=== PATIENT | female | born 1935 | race Caucasian/White ===

== ENCOUNTER 2016-10-04 15:36 | Emergency (ER) | payer OTHER ==
[~2016-10-04 15:36] MED LIST: ALLO300T2 PO; ASPI-435 PO; ATEN50TA8 PO; DIGO0.122 PO; DILT120C50 PO; GLC850 PO; LPD600 PO; LSN20 PO; LSX20 PO; PRAV20TA PO; WARF5TAB7 PO
[2016-10-04 15:39] VITALS: TEMP 36.4; Ht 160 cm
[2016-10-04] MEDS ORDERED: DIGO0.2519 PO (16:16)
[2016-10-04] MEDS ORDERED: CMD5 PO (16:16)
[2016-10-04] MEDS ORDERED: DILT120C PO (16:18)
--- NOTE | 2016-10-04 16:29 | EMERGENCY ROOM VISIT NOTE ---
History Report prepared by Vasu: Misha Jay Under the Supervision of: Dr. Coleman Fan M.D. First contact with patient: 16:18 Chief Complaint: FALL Stated Complaint: LEFT KNEE GAVE OUT History of Present Illness The patient is an 81 year old female with a history of atrial fibrillation on Coumadin who presents to the Emergency Room with complaints of a mechanical fall that occurred less than 2 hours ago. The patient says that she was walking in her house, when her left knee gave out and she fell. The patient hit the back of her head with the fall and has a resulting bump on her head. She was helped up by family members. Per the patient's daughter, the patient complained of a bit of a headache after the fall, but the headache has faded over time. The patient says she has no headache currently. The patient denies any loss of consciousness on the fall. She also denies any other pain, including neck pain. The patient did not cut her head open on the fall. She has chronic leg swelling. The patient notes that her left knee has been operated on before, and has given out on her in the past, causing falls. Source of History: patient, family Onset: Less than 2 hours ago Position: other (global - fall) Quality: other (mechanical) Associated Symptoms: + headache (initially, denies currently), No LOC, No neck pain Note: Associated symptoms: Bump on back of head. Denies any pain currently. Review of Systems See HPI for pertinent positives & negatives. A total of 10 systems reviewed and were otherwise negative. Past Medical & Surgical Medical Problems: (1) A-fib Family History Family history omitted secondary to advanced age. Social History Smoking Status: Never Smoker Marital Status: Housing Status: lives with family Occupation Status: retired Current/Historical Medications Scheduled Allopurinol (Zyloprim), 300 MG PO QAM Aspirin (Aspirin 81), 81 MG PO HS Atenolol (Tenormin), 50 MG PO QAM Digoxin (Digox), 250 MCG PO QAM Diltiazem Hcl Coated Beads (Diltiazem Hcl Er), 120 MG PO QAM Furosemide (Furosemide), 40 MG PO QAM Gemfibrozil (Gemfibrozil), 600 MG PO BID Lisinopril (Lisinopril), 20 MG PO BID Metformin HCl (Metformin HCl), 850 MG PO BID Pravastatin (Pravachol ), 40 MG PO HS Warfarin Sod (Jantoven), 1 TAB PO 4XWK Warfarin Sod (Coumadin), 1.5 TAB PO 3XWK Allergies Coded Allergies: No Known Allergies (Unverified , 12/22/14) Physical Exam Vital Signs Date Time Temp Pulse Resp B/P Pulse Ox O2 Delivery O2 Flow Rate FiO2 10/04/16 18:00 83 18 162/72 97 10/04/16 17:31 76 18 178/111 97 Room Air 10/04/16 15:39 36.4 74 18 123/88 97 Room Air Physical Exam GENERAL: Patient is in no acute distress. HEENT: No acute trauma, normocephalic atraumatic, mucous membranes moist, no nasal congestion, no scleral icterus. No laceration to scalp or hematoma noted. NECK: No stridor, no adenopathy, no meningismus, trachea is midline. Nontender c -spine. LUNGS: Clear to auscultation bilaterally, no wheeze, no rhonchi, breath sounds equal. HEART: Irregular with a normal rate. No murmurs. ABDOMEN: Soft, nontender, bowel sounds positive, no hernias, no peritonitis. EXTREMITIES: Moderate bilateral pedal edema. No cellulitis. No pain to move the joints. NEUROLOGIC: Oriented x 3, no acute motor or sensory deficits, no focal weakness. SKIN: No rash, no jaundice, no diaphoresis. Medical Decision & Procedures ER Provider Diagnostic Interpretation: CT results as stated below per my review and radiologist interpretation: HEAD CT NONCONTRAST CT DOSE: 537.48 mGy.cm HISTORY: Trauma fall, coumadin, hit head TECHNIQUE: Multiaxial CT images of the head were performed without the use of intravenous contrast. Comparison: None. Findings: The paranasal sinuses and mastoid air cells are clear. The calvarium and skull base are intact. The ventricles and sulci are within normal limits. There is no mass, hematoma, midline shift, or acute infarct. Impression: No acute intracranial abnormality. Electronically signed by: Pedro Ball M.D. 10/04/2016 5:30 PM Dictated Date/Time: 10/04/2016 5:29 PM ED Course 1620: The patient was evaluated in room C7. A complete history and physical exam was performed. 1736: I reevaluated the patient and she is resting comfortably. The patient verbally expressed understanding and agreement of the treatment plan. The patient will be discharged. Medical Decision Differential diagnosis includes but is not limited to intracranial bleeding, skull fracture, closed head trauma, cervical spine injury; back, chest, abdominal, or extremity trauma. The patient presents with an injury to her head. She is on Coumadin. On exam, there was no evidence for injury to the neck, extremities, back, chest or abdomen. A brain CT was done, there was no skull fracture, no acute bleed or mass effect. The patient was reassured. She was discharged home. If worsening, she can return for reassessment. Impression Primary Impression: Head trauma Additional Impression: History of Coumadin therapy Scribe Attestation The scribe's documentation has been prepared under my direction and personally reviewed by me in its entirety. I confirm that the note above accurately reflects all work, treatment, procedures, and medical decision making performed by me. Departure Information Dispostion Home / Self-Care Referrals Angeli Lee M.D. (PCP) Forms HOME CARE DOCUMENTATION FORM, IMPORTANT VISIT INFORMATION Patient Instructions My [facility] Additional Instructions tylenol for pain return for vomiting, worsening headache or symptoms brain CT scan was ok today Problem Qualifiers
--- NOTE | 2016-10-04 17:31 | DIAGNOSTIC IMAGING REPORT ---
HEAD CT NONCONTRAST CT DOSE: 537.48 mGy.cm HISTORY: Trauma fall, coumadin, hit head TECHNIQUE: Multiaxial CT images of the head were performed without the use of intravenous contrast. Comparison: None. Findings: The paranasal sinuses and mastoid air cells are clear. The calvarium and skull base are intact. The ventricles and sulci are within normal limits. There is no mass, hematoma, midline shift, or acute infarct. Impression: No acute intracranial abnormality. Electronically signed by: Pedro Ball M.D. 10/04/2016 5:30 PM Dictated Date/Time: 10/04/2016 5:29 PM
[2016-10-04 18:00] VITALS: BP 162/72; PULSE 83; O2SAT 97
== END 2016-10-04 18:00 | disposition home or self-care (01) ==
LOC: C.EDB 15:37 → C.EDC 18:00
DX: S09.90XA Unspecified injury of head, initial encounter (principal); Z79.01 Long term (current) use of anticoagulants; Z79.82 Long term (current) use of aspirin; Z79.899 Other long term (current) drug therapy; W19.XXXA Unspecified fall, initial encounter; W22.09XA Striking against other stationary object, initial encounter; I48.91 Unspecified atrial fibrillation; Y92.009 Unspecified place in unspecified non-institutional (private) residence as the place of occurrence of the external cause

== ENCOUNTER 2022-11-16 11:10 | Inpatient (IN) ==
--- NOTE | 2022-11-16 11:42 | Emergency Department Note ---
Impression & Plan Ambulatory dysfunction, Persistent atrial fibrillation, Hypertension, Type 2 diabetes mellitus, Hypomagnesemia ED Provider Note Provider: Theodore Noland MD DATE OF SERVICE: 11/16/2022 CHIEF COMPLAINT: And mobility, knee issues HISTORY OF PRESENT ILLNESS: Patient is a 87-year-old female past medical history including atrial fibrillation on warfarin, hypertension, diabetes, and multiple knee surgeries in the past presenting here today via ambulance from her home. Evidently over the past week or 2 has had multiple episodes where she has been unable to get up and has required lift assist for EMS due to issues with her knees. States that yesterday she got stuck in the car and they had to be called as well as today she got stuck in a lift chair. Was able to get out even with lift assistance from the chair and EMS was summoned. States that her left knee just gives out on her and she is unable to get up. Denies pain here. Some chronic swelling of the lower extremities reported. Denies any fever cough or cold symptoms. Denies chest pain or shortness of breath. Denies abdominal pain. Denies hip issues. Patient states she had multiple surgeries on her knees in the past and that for some time its been giving out but a bit more recently. Patient states that she feels that she may benefit from some physical therapy at her home. Lives at home with her but he is 90 with some early memory issues she reports and cannot help much. Daughter visits daily and helps some. No falls likely reported. Does relate she has had some INR issues the last several weeks. Does use a walker at home as well as wheelchair. Lives on 1 level at home. PAST MEDICAL HISTORY: As noted above MEDICATIONS: Reviewed home medications SOCIAL HISTORY: Lives at home with PHYSICAL EXAM: GENERAL: alert and oriented in no acute distress on stretcher Head: normocephalic and atraumatic EYES: No injection, discharge or icterus. NECK: Trachea midline. ENT: Mucous membranes pink and moist. LUNGS: Airway patent. No retractions. Breath sounds clear anteriorly HEART: Regular rate and rhythm. No chest wall tenderness ABDOMEN: Soft and non-tender, without guarding or rebound. SKIN: Acyanotic, warm, dry, EXTREMITIES: Without tenderness with 1-2+ edema of the lower extremities and compression stockings bilaterally and fairly symmetric. No significant erythema or weeping noted. Patient with healed surgical scars in the bilateral knees. No significant tenderness in particular the left knee appreciated. Velcro knee brace in place in the left knee. NEUROLOGICAL: No focal deficits. No aphasia. No facial droop or slurred speech. Normal strength and tone in the extremities. Sensation to gross touch normal. Ambulatory. EK bpm atrial fibrillation with PVCs noted. No acute ST segment elevation noted with some nonspecific lateral T wave/ST changes. QTc 405. CONTINUOUS CARDIAC MONITORING: was ordered and showed a heart rate of 50s-60s bpm in atrial fibrillation Patient's laboratory studies and imaging reviewed. Differential includes Infection, dehydration, metabolic abnormality, hypo/hyperglycemia, electrolyte disturbance, anemia, hypoxia, cardiac sources, neurologic, as well as other pathologies. IMPRESSION/MEDICAL DECISION MAKING: No pain complaint. No trauma history newly. No fever complaint. Doubt acute infection to the knee. Does not appear significantly erythematous or swollen or tender. Doubt crystalline disease or septic joint here. Multiple surgeries in the past and states it is weak and gives out on her frequently. No trauma again likely reported. Uses walker and wheelchair at home but still having ambulatory issues and lives at home with her 90-year-old . Basic labs checked including digoxin and INR level given her cardiac history. No other significant pain complaints or abdominal or thoracic complaints reported by the patient. Basic labs obtaine with a COVID test and x-ray of the left knee. Did discuss with case management options for therapy and would require admission here for this. Patient's daughter later arrived. Had some difficulty straightening her right leg as well and they requested an x-ray of the right knee and this was obtained. Basic blood work here without significant leukocytosis and slightly improved mild anemia. No significant electrolyte abnormality beyond some slight hyp omagnesemia of 1.6 and no signs of acute kidney injury. Troponin 16 and I doubt any significant cardiac injury or ACS. Digoxin therapeutic at 1.7 likely explains some slight EKG findings. Negative COVID. Bilateral x-rays per radiology without acute bony abnormality with bilateral knee arthroplasties and some soft tissue edema appreciated. INR 1.9. Discussed with patient and daughters at bedside findings and options at this time. Case management states she would require again stay to determine possible rehab options. Patient and family are agreeable to this as she is not able to really stand or ambulate and will likely need rehab. She was agreeable with this plan. DIAGNOSIS: Ambulatory dysfunction, hypomagnesemia DISPOSITION: Hospitalist will evaluate Patient was agreeable with this plan. Past Med/Surg History Medical History CKD (chronic kidney disease), stage III Diastolic dysfunction History of breast cancer Hypertension On warfarin therapy Persistent atrial fibrillation Type 2 diabetes mellitus Surgical History History of cholecystectomy History of total abdominal hysterectomy History of total left knee replacement History of total right knee replacement S/P mastectomy, bilateral Family History Other Family history non-contributory Social History Smoking Status: Never smoker Do You Dip or Chew Tobacco: No; Hx Alcohol Use: Yes Alcohol type: wine Hx Substance Use: No Preferred Language: Taiwanese Communication Ability: Effective Highway Engineer Required: No Beliefs That Will Affect Care: None marital status: Current Living Situation: Spouse current occupational status: retired Other Information That Helps Us Care for You: No Feels Safe at Home: Yes Safety Concerns: Feels Safe At This Time Assistive Devices: Denture - Upper, Glasses, Walker and Wheelchair Allergies Allergies Allergy/AdvReac Type Severity Reaction Status Date / Time No Known Allergies Allergy Verified 11/16/22 14:00 Home Meds Home Medications Medication Instructions Recorded Confirmed allopurinol 300 mg tablet 300 mg PO QAM 08/15/22 11/16/22 apple cider vinegar 500 mg tablet 500 mg PO QDD 08/15/22 11/16/22 aspirin 81 mg tablet,delayed 81 mg PO HS 08/15/22 11/16/22 release atenolol 50 mg tablet 75 mg PO QAM 08/15/22 11/16/22 cholecalciferol (vitamin D3) 125 250 mcg PO QPM 08/15/22 11/16/22 mcg (5,000 unit) tablet (Vitamin D3) cyanocobalamin (vitamin B-12) 1,000 mcg PO HS 08/15/22 11/16/22 1,000 mcg tablet (Vitamin B-12) digoxin 250 mcg (0.25 mg) tablet 250 mcg PO QPM 08/15/22 11/16/22 diltiazem HCl 120 mg 120 mg PO QAM 08/15/22 11/16/22 capsule,extended release 24 hr furosemide 40 mg tablet 40 mg PO QAM 08/15/22 11/16/22 lisinopril 20 mg tablet 20 mg PO BID 08/15/22 11/16/22 pravastatin 40 mg tablet 40 mg PO HS 08/15/22 11/16/22 warfarin 5 mg tablet 5 mg PO 2XWK 08/15/22 11/16/22 acetaminophen 500 mg tablet 1,000 mg PO QAM 11/16/22 11/16/22 diphenhydramine 25 2 tab PO HS 11/16/22 11/16/22 mg-acetaminophen 500 mg tablet (Tylenol PM Extra Strength) glipizide 5 mg tablet 5 mg PO BID 11/16/22 11/16/22 vit C 250 mg-vit E 90 mg-zinc 40 1 tab PO BID 11/16/22 11/16/22 mg-copper 1 [id number] capsule (PreserVision AREDS-2) warfarin 2.5 mg tablet 2.5 mg PO 5XWK 11/16/22 11/16/22 Results & Data (ED) Vital Signs Vital Signs - 24 hr 11/16/22 11:10 11/16/22 11:30 11/16/22 11:56 Temperature 36.8 C Temperature Source Oral Pulse Rate 84 68 Pulse Rate [Right Finger] Respiratory Rate 16 Respiratory Effort / Characteristics Non-Labored Respiratory Depth Normal Blood Pressure 170/105 H Blood Pressure [Right Arm] Blood Pressure Mean 126 Blood Pressure Mean [Right Arm] Pulse Oximetry 93 93 Oxygen Delivery Method Room Air Room Air Sepsis Recent Fever Within 48 Hours No Sepsis New/Unexplained Change in Mental Status N/A Sepsis Action Taken by Nursing No Action Required 11/16/22 11:50 11/16/22 12:51 Temperature Temperature Source Pulse Rate Pulse Rate [Right Finger] 68 Respiratory Rate 24 Respiratory Effort / Characteristics Non-Labored Respiratory Depth Normal Blood Pressure Blood Pressure [Right Arm] 159/82 H Blood Pressure Mean Blood Pressure Mean [Right Arm] 107 Pulse Oximetry 98 94 Oxygen Delivery Method Room Air Room Air Sepsis Recent Fever Within 48 Hours Sepsis New/Unexplained Change in Mental Status Sepsis Action Taken by Nursing Laboratory Data 11/16/22 11:51 11/16/22 11:51 Lab Results 11/16/22 11/16/2211/16/23 Range/Units 11:51 11:51 11:51 WBC 7.67 (4.8-10.8) K/ul RBC 3.87 L (4.20-5.40) M/uL Hgb 11.1 L (12.0-16.0) g/dl Hct 34.7 L (37.0-47.0) % MCV 89.7 (80.0-100.0) fL MCH 28.7 (25.0-34.0) pg MCHC 32.0 (32.0-36.0) g/dL RDW Std Deviation 53.8 H (36.4-46.3) fL RDW Coeff of Eric 16.7 H (11.5-14.5) % Plt Count 256 (130-400) K/uL MPV 10.5 (9.4-12.4) fL Immature Gran % (Auto) 0.4 % Neut % (Auto) 82.5 % Lymph % (Auto) 8.5 % Luna % (Auto) 7.4 % Eos % (Auto) 0.8 % Baso % (Auto) 0.4 % Neut # (Auto) 6.33 (1.40-6.50) K/uL Lymph # (Auto) 0.65 L (1.2-3.4) K/uL Luna # (Auto) 0.57 (0.11-0.59) K/uL Eos # (Auto) 0.06 (0-0.50) K/uL Baso # (Auto) 0.03 (0-0.2) K/uL Immature Gran # (Auto) 0.03 (0.01-0.20) K/uL PT 19.5 H (9.0-12.0) Seconds INR 1.9 H (0.9-1.1) Sodium 139 (136-145) mmol/L Potassium 4.5 (3.5-5.1) mmol/L Chloride 104 (98-107) mmol/L Carbon Dioxide 28 (21-32) mmol/L Anion Gap 7 (3-11) BUN 29 H (6-23) mg/dl Creatinine 1.19 (0.6-1.2) mg/dl Est Cr Clr Drug Dosing 40.2 ml/min Est GFR ( Amer) 47.9 ml/min Est GFR (Non-Af Amer) 41.3 ml/min BUN/Creatinine Ratio 24.4 H (10-20) Glucose 228 H (70-99(Fasting)) mg/dl Calcium 10.2 (8.6-10.3) mg/dl Magnesium 1.6 L (1.7-2.4) mg/dl Total Bilirubin 0.5 (0.2-1.0) mg/dl AST 15 (13-39) U/L ALT 12 (7-52) U/L Alkaline Phosphatase 65 (34-104) U/L Troponin I High Sens 16.0 H (0-14) pg/ml Total Protein 7.0 (6.0-8.3) gm/dl Albumin 3.9 (3.4-5.0) gm/dl Globulin 3.1 (2.5-4.0) gm/dl Albumin/Globulin Ratio 1.3 (0.9-2) TSH (0.300-4.500) uIu/ml Urine Color Urine Appearance (Clear) Urine pH (4.5-7.5) Ur Specific [place] (1.000-1.030) Urine Protein (Negative) Urine Glucose (UA) (Negative) Urine Ketones (Negative) Urine Blood (Negative) Urine Nitrite (Negative) Urine Bilirubin (Negative) Urine Urobilinogen (Negative) Ur Leukocyte Esterase (Negative) Urine WBC (Auto) (0-5) /hpf Urine RBC (Auto) (0-4) /hpf U Hyaline Cast (Auto) (0-5) /lpf U Epithel Cells (Auto) (0-5) /lpf Urine Bacteria (Auto) (Negative) Urine Yeast Digoxin (0.8-2.0) ng/ml SARS-CoV-2, RNA, NAAT (NEGATIVE) 11/16/22 11/16/22 11/16/22 Range/Units 11:51 11:51 11:52 WBC (4.8-10.8) K/ul RBC (4.20-5.40) M/uL Hgb (12.0-16.0) g/dl Hct (37.0-47.0) % MCV (80.0-100.0) fL MCH (25.0-34.0) pg MCHC (32.0-36.0) g/dL RDW Std Deviation (36.4-46.3) fL RDW Coeff of Eric (11.5-14.5) % Plt Count (130-400) K/uL MPV (9.4-12.4) fL Immature Gran % (Auto) % Neut % (Auto) % Lymph % (Auto) % Luna % (Auto) % Eos % (Auto) % Baso % (Auto) % Neut # (Auto) (1.40-6.50) K/uL Lymph # (Auto) (1.2-3.4) K/uL Luna # (Auto) (0.11-0.59) K/uL Eos # (Auto) (0-0.50) K/uL Baso # (Auto) (0-0.2) K/uL Immature Gran # (Auto) (0.01-0.20) K/uL PT (9.0-12.0) Seconds INR (0.9-1.1) Sodium (136-145) mmol/L Potassium (3.5-5.1) mmol/L Chloride (98-107) mmol/L Carbon Dioxide (21-32) mmol/L Anion Gap (3-11) BUN (6-23) mg/dl Creatinine (0.6-1.2) mg/dl Est Cr Clr Drug Dosing ml/min Est GFR ( Amer) ml/min Est GFR (Non-Af Amer) ml/min BUN/Creatinine Ratio (10-20) Glucose (70-99(Fasting)) mg/dl Calcium (8.6-10.3) mg/dl Magnesium (1.7-2.4) mg/dl Total Bilirubin (0.2-1.0) mg/dl AST (13-39) U/L ALT (7-52) U/L Alkaline Phosphatase (34-104) U/L Troponin I High Sens (0-14) pg/ml Total Protein (6.0-8.3) gm/dl Albumin (3.4-5.0) gm/dl Globulin (2.5-4.0) gm/dl Albumin/Globulin Ratio (0.9-2) TSH 2.888 (0.300-4.500) uIu/ml Urine Color Urine Appearance (Clear) Urine pH (4.5-7.5) Ur Specific [place] (1.000-1.030) Urine Protein (Negative) Urine Glucose (UA) (Negative) Urine Ketones (Negative) Urine Blood (Negative) Urine Nitrite (Negative) Urine Bilirubin (Negative) Urine Urobilinogen (Negative) Ur Leukocyte Esterase (Negative) Urine WBC (Auto) (0-5) /hpf Urine RBC (Auto) (0-4) /hpf U Hyaline Cast (Auto) (0-5) /lpf U Epithel Cells (Auto) (0-5) /lpf Urine Bacteria (Auto) (Negative) Urine Yeast Digoxin 1.7 (0.8-2.0) ng/ml SARS-CoV-2, RNA, NAAT NEGATIVE (NEGATIVE) 11/16/22 Range/Units 13:10 WBC (4.8-10.8) K/ul RBC (4.20-5.40) M/uL Hgb (12.0-16.0) g/dl Hct (37.0-47.0) % MCV (80.0-100.0) fL MCH (25.0-34.0) pg MCHC (32.0-36.0) g/dL RDW Std Deviation (36.4-46.3) fL RDW Coeff of Eric (11.5-14.5) % Plt Count (130-400) K/uL MPV (9.4-12.4) fL Immature Gran % (Auto) % Neut % (Auto) % Lymph % (Auto) % Luna % (Auto) % Eos % (Auto) % Baso % (Auto) % Neut # (Auto) (1.40-6.50) K/uL Lymph # (Auto) (1.2-3.4) K/uL Luna # (Auto) (0.11-0.59) K/uL Eos # (Auto) (0-0.50) K/uL Baso # (Auto) (0-0.2) K/uL Immature Gran # (Auto) (0.01-0.20) K/uL PT (9.0-12.0) Seconds INR (0.9-1.1) Sodium (136-145) mmol/L Potassium (3.5-5.1) mmol/L Chloride (98-107) mmol/L Carbon Dioxide (21-32) mmol/L Anion Gap (3-11) BUN (6-23) mg/dl Creatinine (0.6-1.2) mg/dl Est Cr Clr Drug Dosing ml/min Est GFR ( Amer) ml/min Est GFR (Non-Af Amer) ml/min BUN/Creatinine Ratio (10-20) Glucose (70-99(Fasting)) mg/dl Calcium (8.6-10.3) mg/dl Magnesium (1.7-2.4) mg/dl Total Bilirubin (0.2-1.0) mg/dl AST (13-39) U/L ALT (7-52) U/L Alkaline Phosphatase (34-104) U/L Troponin I High Sens (0-14) pg/ml Total Protein (6.0-8.3) gm/dl Albumin (3.4-5.0) gm/dl Globulin (2.5-4.0) gm/dl Albumin/Globulin Ratio (0.9-2) TSH (0.300-4.500) uIu/ml Urine Color Yellow Urine Appearance Cloudy A (Clear) Urine pH 6.5 (4.5-7.5) Ur Specific [place] 1.011 (1.000-1.030) Urine Protein 3+ H (Negative) Urine Glucose (UA) Negative (Negative) Urine Ketones Negative (Negative) Urine Blood Negative (Negative) Urine Nitrite Negative (Negative) Urine Bilirubin Negative (Negative) Urine Urobilinogen Negative (Negative) Ur Leukocyte Esterase Trace H (Negative) Urine WBC (Auto) >30 H (0-5) /hpf Urine RBC (Auto) 0-4 (0-4) /hpf U Hyaline Cast (Auto) 1-5 (0-5) /lpf U Epithel Cells (Auto) 10-20 H (0-5) /lpf Urine Bacteria (Auto) 4+ H (Negative) Urine Yeast Not Reportable Digoxin (0.8-2.0) ng/ml SARS-CoV-2, RNA, NAAT (NEGATIVE) Administered Medications Digoxin (Digoxin 0.25 Mg Tab) 0.25 mg PO DAILY@1600 [place] Stop: 12/16/22 15:59 Last Admin: 11/16/22 16:20 Dose: 0.25 mg Documented By: DLS Ceftriaxone Sodium 2,000 mg/ (Dextrose) 70 mls @ 100 mls/hr IV Q24H [facility] [place]; Protocol Stop: 11/21/22 15:44 Last Infusion: 11/16/22 17:19 Dose: 0 mls/hr Documented By: Admin: 11/16/22 16:16 Dose: 100 mls/hr Documented By: DREW Magnesium Sulfate/Dextrose (Magnesium Sulfate / D5w) 1 gm in 100 mls @ 100 mls/hr IV Q1H [facility] [place] Stop: 11/16/22 19:14 Last Admin: 11/16/22 17:14 Dose: 100 mls/hr Documented By: DREW Warfarin Sodium (Warfarin Sod 2.5 Mg Tab) 2.5 mg PO SuTuWeFrSa@1600 [facility] [place] Stop: 12/16/22 15:59 Last Admin: 11/16/22 16:20 Dose: 2.5 mg Documented By: DREW Imaging Data Radiologist's Impression: Knee X-Ray 11/16/22 11:36 RIGHT KNEE 3 VIEWS; LEFT KNEE 3 VIEWS CLINICAL HISTORY: Weakness in the left knee. Inability to straighten the right knee. FINDINGS: AP and crosstable lateral views of the right and left knee with a sunrise view of both knees are obtained. No prior studies are available for comparison at the time of dictation. The skeletal structures are osteopenic. No fracture is identified in either knee. Bilateral knee arthroplasties are in near-anatomic alignment. A hinged arthroplasty is seen on the left with long tibial and femoral stems No periprosthetic lucency is seen. A small joint effusion is seen on the right. No significant joint effusion is seen on the left. Soft tissue swelling is present in both legs. Calcified venous varicosities are present in the right calf. There is atherosclerotic calcification of the popliteal arteries. IMPRESSION: 1. No acute bony abnormality is identified in either knee. 2. Bilateral knee arthroplasties are in place as above. 3. Soft tissue edema is seen in both legs. Electronically signed by: Coleman Perez M.D. 11/16/2022 12:38 PM Knee X-Ray 11/16/22 12:09 RIGHT KNEE 3 VIEWS; LEFT KNEE 3 VIEWS CLINICAL HISTORY: Weakness in the left knee. Inability to straighten the right knee. FINDINGS: AP and crosstable lateral views of the right and left knee with a sunrise view of both knees are obtained. No prior studies are available for comparison at the time of dictation. The skeletal structures are osteopenic. No fracture is identified in either knee. Bilateral knee arthroplasties are in near-anatomic alignment. A hinged arthroplasty is seen on the left with long tibial and femoral stems No periprosthetic lucency is seen. A small joint effusion is seen on the right. No significant joint effusion is seen on the left. Soft tissue swelling is present in both legs. Calcified venous varicosities are present in the right calf. There is atherosclerotic calcification of the popliteal arteries. IMPRESSION: 1. No acute bony abnormality is identified in either knee. 2. Bilateral knee arthroplasties are in place as above. 3. Soft tissue edema is seen in both legs. Electronically signed by: Coleman Perez M.D. 11/16/2022 12:38 PM Discharge Plan Visit Data Chief Complaint: Knee Injury/Pain ED Provider: Theodore Noland Discharge Problem: Ambulatory dysfunction, Persistent atrial fibrillation, Hypertension, Type 2 diabetes mellitus, Hypomagnesemia Patient Disposition: Admitted As Inpatient Discharge Instructions Interventions: ED Discharge Assessment Last Done: 11/16/22 14:50
[2022-11-16 12:07] LABS: Basophils # (auto) 0.03 K/uL (0-0.2); Basophils % (auto) 0.4 %; Eosinophils # (auto) 0.06 K/uL (0-0.50); Eosinophils % (auto) 0.8 %; Hematocrit (blood only) 34.7 % (37.0-47.0); Hemoglobin 11.1 g/dl (12.0-16.0); Immature Granulocytes # (auto) 0.03 K/uL (0.01-0.20); Immature Granulocytes % (auto) 0.4 %; Lymphocytes # (auto) 0.65 K/uL (1.2-3.4); Lymphocytes % (auto) 8.5 %; Mean Corpuscular Hemoglobin 28.7 pg (25.0-34.0); Mean Corpuscular Volume 89.7 fL (80.0-100.0); Mean Platelet Volume 10.5 fL (9.4-12.4); Monocytes # (auto) 0.57 K/uL (0.11-0.59); Monocytes % (auto) 7.4 %; Neutrophils # (auto) 6.33 K/uL (1.40-6.50); Neutrophils % (auto) 82.5 %; Platelet Count 256 K/uL (130-400); RDW Coefficient of Variation 16.7 % (11.5-14.5); RDW Standard Deviation 53.8 fL (36.4-46.3); Red Blood Count 3.87 M/uL (4.20-5.40); White Blood Count 7.67 K/ul (4.8-10.8)
[2022-11-16 12:24] LABS: Albumin Globulin Ratio 1.3 (0.9-2); Albumin Level 3.9 gm/dl (3.4-5.0); BUN Creatinine Ratio 24.4 (10-20); Bilirubin,Total 0.5 mg/dl (0.2-1.0); Calcium 10.2 mg/dl (8.6-10.3); Creatinine Clr Calc Pharmacy 40.2 ml/min; Est GFR (African American) 47.9 ml/min; Est GFR (Non-African American) 41.3 ml/min; Globulin 3.1 gm/dl (2.5-4.0); Magnesium 1.6 mg/dl (1.7-2.4); Potassium 4.5 mmol/L (3.5-5.1)
--- NOTE | 2022-11-16 12:40 | XRay Report ---
RIGHT KNEE 3 VIEWS; LEFT KNEE 3 VIEWS CLINICAL HISTORY: Weakness in the left knee. Inability to straighten the right knee. FINDINGS: AP and crosstable lateral views of the right and left knee with a sunrise view of both knee s are obtained. No prior studies are available for comparison at the time of dictation. The skeletal structures are osteopenic. No fracture is identified in either knee. Bilateral knee arthroplasties ar e in near-anatomic alignment. A hinged arthroplasty is seen on the left with long tibial and femoral stems No periprosthetic lucency is seen. A small joint effusion is seen on the right. No significant joint effusion is seen on the left. Soft tissue swelling is present in both legs. Calcified venous va ricosities are present in the right calf. There is atherosclerotic calcification of the popliteal art eries. IMPRESSION: 1. No acute bony abnormality is identified in either knee. 2. Bilateral knee arthroplasties are in place as above. 3. Soft tissue edema is seen in both legs. Electronically signed by: Coleman Perez M.D. 11/16/2022 12:38 PM
[2022-11-16 12:56] LABS: INR 1.9 (0.9-1.1); Prothrombin Time 19.5 Seconds (9.0-12.0)
[2022-11-16] MEDS ORDERED: MAGNESIUM SULFATE / D5W 1 GM/100 ML BAG IV SCH ×2 (13:45→17:15)
[2022-11-16 15:01] LABS: Appearance Urine Cloudy (Clear); Bacteria Urine Automated 4+ (Negative); Bilirubin Urine Negative (Negative); Blood Urine Negative (Negative); Color Urine Yellow; Glucose Urine UA Negative (Negative); Ketones Urine Negative (Negative); Leukocyte Esterase Urine Trace (Negative); Nitrite Urine Negative (Negative); Protein Urine 3+ (Negative); Specific Gravity Urine 1.011 (1.000-1.030); Urobilinogen Urine Negative (Negative); WBC Urine Automated >30 /hpf (0-5); pH Urine 6.5 (4.5-7.5)
[2022-11-16 15:17] LABS: RBC Urine Automated 0-4 /hpf (0-4)
[2022-11-16] MEDS ORDERED: GLUCAGON FOR INJ 1 MG VIAL SQ PRN (15:19)
[2022-11-16] MEDS ORDERED: DEXTROSE 50% 50 ML SYRINGE IV PRN (15:19)
[2022-11-16] MEDS ORDERED: GLUCOSE 10 TAB/TUBE PO PRN (15:19)
[2022-11-16] MEDS ORDERED: GLUCOSE 40% GEL 15 GM TUBE PO PRN (15:19)
[2022-11-16] MEDS ORDERED: CARBOHYDRATES FOR HYPOGLYCEMIA PO PRN (15:19)
[2022-11-16] MEDS ORDERED: ACETAMINOPHEN 325 MG TAB PO PRN (15:19)
--- NOTE | 2022-11-16 15:58 | History & Physical Report ---
Date of Service November 16, 2022 Assessment & Plan (1) Ambulatory dysfunction: Plan: Admit to [facility] Patient presenting from home with frequent falls over the past 2 weeks and inability to stand. History of chronic issues with left knee. Patient denies pain. Bilateral knee x-rays unremarkable. UA suggest possible UTI -- ?? If this is contributing patient's generalized weakness PT/OT, case management consults for rehab placement (2) Abnormal urinalysis: Plan: UA suggest possible UTI Start IV ceftriaxone Follow culture (3) Persistent atrial fibrillation: Plan: Rate controlled on atenolol, digoxin, diltiazem On Coumadin, INR 1.9 (4) Hypertension: Plan: Continue atenolol, diltiazem, lisinopril (5) Type 2 diabetes mellitus: Plan: Hgb A1c 7.2 10/2022 Hold metformin and utilize NovoLog per protocol while hospitalized (6) Diastolic dysfunction: Plan: Appears euvolemic, continue furosemide DVT PROPHYLAXIS On Coumadin, INR 1.9 Patient seen in collaboration with Dr. Soto. I spent a total of 75 minutes coordinating, documenting, and providing care for this patient excluding time spent in the performance of separately billed services. This included personally reviewing all current laboratories and imaging studies, medication reconciliation, outpatient chart review, and discussion with specialists. Admission and Anticipated Discharge Date Admission Date: November 16, 2022 History of Present Illness Chief Complaint: Generalized weakness Primary Care Provider: Angeli Lee MD 87-year-old female with PMH DM type II, dyslipidemia, persistent atrial fibrillation on Coumadin, HTN, CKD stage III, gout, history of bilateral total knee replacements, history of breast cancer s/p bilateral mastectomy, and other problems listed below who presents to the ED for evaluation of generalized weakness. History obtained from the patient and review of outpatient PCP and cardiology records. Patient reports a longstanding history of issues with her left knee. Reports that she has had 4 surgeries on her left knee. She chron ically wears a brace. States that left knee gives out on her frequently. She has had 3 falls over the past 3 weeks due to her left knee giving out her. Today, patient was unable to stand from her lift chair. Patient was brought to the ED for further relation. Patient states she otherwise has been feeling well recently. Denies any other recent illnesses, fevers, chills. No chest pain or shortness of breath. Has chronic lower extremity edema which is unchanged at baseline. Denies lightheadedness, dizziness, diaphoresis, syncopal events. No abdominal pain, nausea, vomiting, diarrhea. Denies urinary symptoms. In the ED, patient's labs are essentially unremarkable. UA suggest possible UTI. Bilateral knee x-rays are unremarkable. Allergies Allergy/AdvReac Type Severity Reaction Status Date / Time No Known Allergies Allergy Verified 11/16/22 14:00 Home Medications Medication Instructions Recorded Confirmed Type allopurinol 300 mg tablet 300 mg PO QAM 08/15/22 11/16/22 History apple cider vinegar 500 mg tablet 500 mg PO QDD 08/15/22 11/16/22 History aspirin 81 mg tablet,delayed 81 mg PO HS 08/15/22 11/16/22 History release atenolol 50 mg tablet 75 mg PO QAM 08/15/22 11/16/22 History cholecalciferol (vitamin D3) 125 250 mcg PO QPM 08/15/22 11/16/22 History mcg (5,000 unit) tablet (Vitamin D3) cyanocobalamin (vitamin B-12) 1,000 mcg PO HS 08/15/22 11/16/22 History 1,000 mcg tablet (Vitamin B-12) digoxin 250 mcg (0.25 mg) tablet 250 mcg PO QPM 08/15/22 11/16/22 History diltiazem HCl 120 mg 120 mg PO QAM 08/15/22 11/16/22 History capsule,extended release 24 hr furosemide 40 mg tablet 40 mg PO QAM 08/15/22 11/16/22 History lisinopril 20 mg tablet 20 mg PO BID 08/15/22 11/16/22 History pravastatin 40 mg tablet 40 mg PO HS 08/15/22 11/16/22 History warfarin 5 mg tablet 5 mg PO 2XWK 08/15/22 11/16/22 History acetaminophen 500 mg tablet 1,000 mg PO QAM 11/16/22 11/16/22 History diphenhydramine 25 2 tab PO HS 11/16/22 11/16/22 History mg-acetaminophen 500 mg tablet (Tylenol PM Extra Strength) glipizide 5 mg tablet 5 mg PO BID 11/16/22 11/16/22 History vit C 250 mg-vit E 90 mg-zinc 40 1 tab PO BID 11/16/22 11/16/22 History mg-copper 1 [id number] capsule (PreserVision AREDS-2) warfarin 2.5 mg tablet 2.5 mg PO 5XWK 11/16/22 11/16/22 History Past Med/Surg History Medical History CKD (chronic kidney disease), stage III Diastolic dysfunction History of breast cancer Hypertension On warfarin therapy Persistent atrial fibrillation Type 2 diabetes mellitus Surgical History History of cholecystectomy History of total abdominal hysterectomy History of total left knee replacement History of total right knee replacement S/P mastectomy, bilateral Family History Other Family history non-contributory Social History Smoking Status: Never smoker Do You Dip or Chew Tobacco: No; Hx Alcohol Use: Yes Alcohol type: wine Hx Substance Use: No Preferred Language: Frisian Communication Ability: Effective 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 Instrument Operator Required: No Beliefs That Will Affect Care: None marital status: Current Living Situation: Spouse current occupational status: retired Other Information That Helps Us Care for You: No Feels Safe at Home: Yes Safety Concerns: Feels Safe At This Time Assistive Devices: Denture - Upper, Glasses, Walker and Wheelchair Physical Exam Constitutional: WD/WN, vitals as above + obese Eyes: PERRL, conjunctivae normal, anicteric sclerae ENMT: external ear and nose normal, oropharynx normal Respiratory: normal respiratory effort, lungs clear to auscultation Cardiovascular: Rate/Rhythm: regular rate and + irregularly irregular Vessels: normal peripheral pulses Extremities: + edema (+1-2 edema BLE) Gastrointestinal (Abdomen): normal bowel sounds, soft, nontender, no hepatosplenomegaly Musculoskeletal: no cyanosis or clubbing, extremities motor strength 5/5 Skin: no rashes, warm and dry Neurologic: PERRL, EOMI, accommodation nl, no face palsy, no dysarthria Psychiatric: A+Ox3, euthymic affect Results & Data Results & Data Vital Signs (Past 12 Hours) Vital Signs Temp Pulse Pulse Resp BP BP Pulse Ox 06/18/23 15:24 37.2 C 64 18 170/79 H 95 11/16/22 12:51 68 24 159/82 H 94 11/16/22 11:50 98 11/16/22 11:56 68 11/16/22 11:30 93 11/16/22 11:10 36.8 C 84 16 170/105 H 93 O2 Del Method 11/16/22 15:24 Room Air, Nasal Cannula 11/16/22 12:51 Room Air 11/16/22 11:50 Room Air 11/16/22 11:56 11/16/22 11:30 Room Air 11/16/22 11:10 Room Air Laboratory Results Short CBC 11/16/22 Range/Units 11:51 WBC 7.67 (4.8-10.8) K/ul Hgb 11.1 L (12.0-16.0) g/dl Hct 34.7 L (37.0-47.0) % Plt Count 256 (130-400) K/uL BMP 11/16/22 11:51 Sodium 139 Potassium 4.5 Chloride 104 Carbon Dioxide 28 BUN 29 H Creatinine 1.19 Glucose 228 H Calcium 10.2 Liver Function 11/16/22 Range/Units 11:51 Total Bilirubin 0.5 (0.2-1.0) mg/dl AST 15 (13-39) U/L ALT 12 (7-52) U/L Alkaline Phosphatase 65 (34-104) U/L Albumin 3.9 (3.4-5.0) gm/dl Urine 11/16/22 Range/Units 13:10 Urine Color Yellow Urine Appearance Cloudy A (Clear) Urine pH 6.5 (4.5-7.5) Ur Specific Adams 1.011 (1.000-1.030) Urine Protein 3+ H (Negative) Urine Glucose (UA) Negative (Negative) Diagnostic Findings Knee X-Ray 11/16/22 11:36 RIGHT KNEE 3 VIEWS; LEFT KNEE 3 VIEWS CLINICAL HISTORY: Weakness in the left knee. Inability to straighten the right knee. FINDINGS: AP and crosstable lateral views of the right and left knee with a sunrise view of both knees are obtained. No prior studies are available for comparison at the time of dictation. The skeletal structures are osteopenic. No fracture is identified in either knee. Bilateral knee arthroplasties are in near-anatomic alignment. A hinged arthroplasty is seen on the left with long tibial and femoral stems No periprosthetic lucency is seen. A small joint effusion is seen on the right. No significant joint effusion is seen on the left. Soft tissue swelling is present in both legs. Calcified venous varicosities are present in the right calf. There is atherosclerotic calcification of the popliteal arteries. IMPRESSION: 1. No acute bony abnormality is identified in either knee. 2. Bilateral knee arthroplasties are in place as above. 3. Soft tissue edema is seen in both legs. Electronically signed by: Coleman Perez M.D. 11/16/2022 12:38 PM Knee X-Ray 11/16/22 12:09 RIGHT KNEE 3 VIEWS; LEFT KNEE 3 VIEWS CLINICAL HISTORY: Weakness in the left knee. Inability to straighten the right knee. FINDINGS: AP and crosstable lateral views of the right and left knee with a sunrise view of both knees are obtained. No prior studies are available for comparison at the time of dictation. The skeletal structures are osteopenic. No fracture is identified in either knee. Bilateral knee arthroplasties are in near-anatomic alignment. A hinged arthroplasty is seen on the left with long tibial and femoral stems No periprosthetic lucency is seen. A small joint effusion is seen on the right. No significant joint effusion is seen on the left. Soft tissue swelling is present in both legs. Calcified venous varicosities are present in the right calf. There is atherosclerotic calcification of the popliteal arteries. IMPRESSION: 1. No acute bony abnormality is identified in either knee. 2. Bilateral knee arthroplasties are in place as above. 3. Soft tissue edema is seen in both legs. Electronically signed by: Coleman Perez M.D. 11/16/2022 12:38 PM Code Status & VTE Plan Code Status Patient is a full code as per my discussion with her. Supervising Physician Co-Signing Physician Notes 87 yo F w/ PMH of t2dm, hld, persistent afib on warfarin, gout, b/l TKR, HTN, CKD stage III, presented w/ c/o generalised weakness and left knee weakness/no pain or fever/chills/cough lately. Will get PT/OT for ambulatory dysfunction/weakness and rocephin for abn urinalysis.follow urine Cx. c/w other home meds. On exam: GENERAL: Alert and oriented x3. NAD, on RA. Obese Class III. HEENT: No pallor, no icterus. Pupils equal, round and reactive to light. Oral mucosa moist. NECK: No JVD, no neck masses. HEART: S1 and S2 heard. irregular rate and rhythm. systolic murmur, no gallop. RESPIRATORY SYSTEM: Normal AP diameter. No accessory muscle use. No wheezing, no crackles. ABDOMEN: Soft, bowel sounds present, nontender, no distention. CENTRAL NERVOUS SYSTEM: No facial droop. Speech is clear. Obeys simple commands. Moves extremities. EXTREMITIES: 1+ ble edema, no erythema seen. b/l old healed TKR scars. I have seen and examined the patient and have discussed the case with the provider above. I agree with the assessment and plan as stated.
[2022-11-16] MEDS: cefTRIAXone SODIUM 2,000 MG in DEXTROSE 5% 50 ML IV SCH (16:16)
[2022-11-16] MEDS: WARFARIN SOD 2.5 MG TAB PO SCH (16:20)
[2022-11-16] MEDS: DIGOXIN 0.25 MG TAB PO SCH (16:20)
[2022-11-16] MEDS: MAGNESIUM SULFATE / D5W 1 GM/100 ML BAG IV SCH ×2 (17:14→18:10)
[2022-11-16] MEDS: INSULIN ASPART PER UNIT CHARGE SC SCH ×2 (17:52→20:42)
[2022-11-16] MEDS: lisinopril 20 MG TAB PO SCH (19:15)
[2022-11-16] MEDS: ASPIRIN 81 MG ECTAB PO SCH (19:15)
[2022-11-16] MEDS: CHOLECALCIFEROL 5,000 UNITS 125 MCG TAB PO SCH (19:15)
[2022-11-16] MEDS: CYANOCOBALAMIN (B-12) 500 MCG TABLET PO SCH (19:16)
[2022-11-16] MEDS: PRAVASTATIN SOD 40 MG TAB PO SCH (19:16)
[2022-11-17] MEDS: ATENOLOL 25 MG TABLET PO SCH (08:00)
[2022-11-17] MEDS: FUROSEMIDE 40 MG TAB PO SCH (08:00)
[2022-11-17] MEDS: allopurinoL 300 MG TAB PO SCH (08:00)
[2022-11-17] MEDS: lisinopril 20 MG TAB PO SCH ×2 (08:01→20:43)
[2022-11-17] MEDS: dilTIAZem HCL 120 MG CAPCR PO SCH (08:01)
[2022-11-17 08:11] LABS: Prothrombin Time 21.4 Seconds (9.0-12.0)
[2022-11-17] MEDS: INSULIN ASPART PER UNIT CHARGE SC SCH ×4 (08:43→20:38)
--- NOTE | 2022-11-17 12:16 | Hospitalist Progress Note ---
Date of Service November 17, 2022 Assessment & Plan (1) Ambulatory dysfunction: Plan: Admitted to [facility] Patient presenting from home with frequent falls over the past 2 weeks and inability to stand. History of chronic issues with left knee. Patient denies pain. Bilateral knee x-rays unremarkable. UA suggest possible UTI -- ?? If this is contributing patient's generalized weakness PT/OT, case management consults for rehab placement (2) Abnormal urinalysis: Plan: UA suggest possible UTI Start IV ceftriaxone Follow culture (3) Persistent atrial fibrillation: Plan: Rate controlled on atenolol, digoxin, diltiazem On Coumadin, therapeutic (4) Hypertension: Plan: Continue atenolol, diltiazem, lisinopril (5) Type 2 diabetes mellitus: Plan: Hgb A1c 7.2 10/2022 Hold metformin and utilize NovoLog per protocol while hospitalized (6) Diastolic dysfunction: Plan: Appears euvolemic, continue furosemide DVT PROPHYLAXIS: On Coumadin Admission and Anticipated Discharge Date Admission Date: November 16, 2022 Subjective Patient seen and examined at bedside for follow-up of ambulatory dysfunction. Patient was sitting up in chair, on room air, NAD, reports no new acute event overnight, patient reports eating okay and moving bowels okay, denies any headache or chills or chest pain or belly pain or other review of symptoms. Physical Exam Physical Exam: GENERAL: Alert and oriented x3. NAD, on RA. Obese Class III. HEENT: No pallor, no icterus. Pupils equal, round and reactive to light. Oral mucosa moist. NECK: No JVD, no neck masses. HEART: S1 and S2 heard. irregular rate and rhythm. systolic murmur, no gallop. RESPIRATORY SYSTEM: Normal AP diameter. No accessory muscle use. No wheezing, no crackles. ABDOMEN: Soft, bowel sounds present, nontender, no distention. CENTRAL NERVOUS SYSTEM: No facial droop. Speech is clear. Obeys simple commands. Moves extremities. EXTREMITIES: 1+ ble edema, no erythema seen. b/l old healed TKR scars. Results & Data Results & Data Vital Signs (Past 12 Hours) Vital Signs Temp Pulse Resp BP BP Pulse Ox O2 Del Method 11/17/22 11:01 76 137/76 11/17/22 08:01 Room Air 11/17/22 07:52 181/94 H 11/17/22 07:50 36.8 C 74 18 171/106 H 96 Room Air
--- NOTE | 2022-11-17 12:57 | Electrocardiogram Report ---
Test Reason : Blood Pressure : / mmHG Vent. Rate : 072 BPM Atrial Rate : 000 BPM P-R Int : 000 ms QRS Dur : 096 ms QT Int : 370 ms P-R-T Axes : 000 019 -33 degrees QTc Int : 405 ms Atrial fibrillation with premature ventricular or aberrantly conducted complexes Nonspecific ST and T wave abnormality Abnormal ECG When compared with ECG of 03-MAY-2004 08:56, T wave amplitude has decreased in Lateral leads Confirmed by Talon Ellington ([id number]) on 11/17/2022 12:57:00 PM Referred By: REFERRED SELF Confirmed By:Talon Ellington
[2022-11-17] MEDS ORDERED: WARFARIN SOD 5 MG TAB PO SCH (16:00)
[2022-11-17] MEDS: cefTRIAXone SODIUM 2,000 MG in DEXTROSE 5% 50 ML IV SCH (16:03)
[2022-11-17] MEDS: DIGOXIN 0.25 MG TAB PO SCH (16:04)
[2022-11-17] MEDS: PRAVASTATIN SOD 40 MG TAB PO SCH (20:42)
[2022-11-17] MEDS: ASPIRIN 81 MG ECTAB PO SCH (20:42)
[2022-11-17] MEDS: CYANOCOBALAMIN (B-12) 500 MCG TABLET PO SCH (20:42)
[2022-11-17] MEDS: CHOLECALCIFEROL 5,000 UNITS 125 MCG TAB PO SCH (20:42)
[2022-11-18] MEDS: FUROSEMIDE 40 MG TAB PO SCH (08:09)
[2022-11-18] MEDS: lisinopril 20 MG TAB PO SCH ×2 (08:09→20:07)
[2022-11-18] MEDS: allopurinoL 300 MG TAB PO SCH (08:09)
[2022-11-18] MEDS: ATENOLOL 25 MG TABLET PO SCH (08:10)
[2022-11-18] MEDS: dilTIAZem HCL 120 MG CAPCR PO SCH (08:10)
[2022-11-18] MEDS ORDERED: POLYETHYLENE (MIRALAX) 17 GM PACK PO PRN (08:27)
[2022-11-18] MEDS: INSULIN ASPART PER UNIT CHARGE SC SCH ×4 (08:31→22:34)
[2022-11-18] MEDS: cefTRIAXone SODIUM 2,000 MG in DEXTROSE 5% 50 ML IV SCH (15:32)
[2022-11-18] MEDS: WARFARIN SOD 2.5 MG TAB PO SCH (15:32)
[2022-11-18] MEDS: DIGOXIN 0.25 MG TAB PO SCH (15:33)
--- NOTE | 2022-11-18 16:46 | Hospitalist Progress Note ---
Date of Service November 18, 2022 Assessment & Plan (1) Ambulatory dysfunction: Plan: Admitted to [facility] Patient presenting from home with frequent falls over the past 2 weeks and inability to stand. History of chronic issues with left knee. Patient denies pain. Bilateral knee x-rays unremarkable. UA suggest possible UTI -- ?? If this is contributing patient's generalized weakness PT/OT, case management consults for rehab placement (2) Abnormal urinalysis: Plan: UA suggest possible UTI c/w IV ceftriaxone Follow culture (3) Persistent atrial fibrillation: Plan: Rate controlled on atenolol, digoxin, diltiazem On Coumadin, therapeutic (4) Hypertension: Plan: Continue atenolol, diltiazem, lisinopril (5) Type 2 diabetes mellitus: Plan: Hgb A1c 7.2 10/2022 Hold metformin and utilize NovoLog per protocol while hospitalized (6) Diastolic dysfunction: Plan: Appears euvolemic, continue furosemide DVT PROPHYLAXIS: On Coumadin Admission and Anticipated Discharge Date Admission Date: November 17, 2022 Subjective Patient seen and examined at bedside for follow-up of ambulatory dysfunction. Patient was sitting up in chair, on room air, NAD, reports no new acute event overnight, patient reports eating okay and moving bowels okay, denies any headache or chills or chest pain or belly pain or other review of symptoms. Physical Exam Physical Exam: GENERAL: Alert and oriented x3. NAD, on RA. Obese Class III. HEENT: No pallor, no icterus. Pupils equal, round and reactive to light. Oral mucosa moist. NECK: No JVD, no neck masses. HEART: S1 and S2 heard. irregular rate and rhythm. systolic murmur, no gallop. RESPIRATORY SYSTEM: Normal AP diameter. No accessory muscle use. No wheezing, no crackles. ABDOMEN: Soft, bowel sounds present, nontender, no distention. CENTRAL NERVOUS SYSTEM: No facial droop. Speech is clear. Obeys simple commands. Moves extremities. EXTREMITIES: 1+ ble edema, no erythema seen. b/l old healed TKR scars. Results & Data Results & Data Vital Signs (Past 12 Hours) Vital Signs Temp Pulse Pulse Resp BP Pulse Ox O2 Del Method 11/18/22 15:33 57 L 11/18/22 14:44 36.6 C 57 L 18 152/78 H 92 Room Air 11/18/22 08:10 Room Air 11/18/22 08:48 95 Room Air 11/18/22 08:05 36.6 C 66 18 174/85 H 90 Room Air
[2022-11-18] MEDS: ASPIRIN 81 MG ECTAB PO SCH (20:06)
[2022-11-18] MEDS: CHOLECALCIFEROL 5,000 UNITS 125 MCG TAB PO SCH (20:06)
[2022-11-18] MEDS: PRAVASTATIN SOD 40 MG TAB PO SCH (20:07)
[2022-11-18] MEDS: CYANOCOBALAMIN (B-12) 500 MCG TABLET PO SCH (20:07)
[2022-11-19] MEDS: ATENOLOL 25 MG TABLET PO SCH (08:46)
[2022-11-19] MEDS: dilTIAZem HCL 120 MG CAPCR PO SCH (08:46)
[2022-11-19] MEDS: allopurinoL 300 MG TAB PO SCH (08:46)
[2022-11-19] MEDS: lisinopril 20 MG TAB PO SCH (08:46)
[2022-11-19] MEDS: FUROSEMIDE 40 MG TAB PO SCH (08:46)
[2022-11-19] MEDS: INSULIN ASPART PER UNIT CHARGE SC SCH ×2 (08:50→13:40)
--- NOTE | 2022-11-19 11:30 | Hospitalist Progress Note ---
Date of Service November 19, 2022 Assessment & Plan (1) Ambulatory dysfunction: Plan: Admitted to [facility] Patient presenting from home with frequent falls over the past 2 weeks and inability to stand. History of chronic issues with left knee. Patient denies pain. Bilateral knee x-rays unremarkable. PT/OT, case management consults for rehab placement The patient she remains stable and has been accepted to [facility] She will be discharged to [place] care this afternoon (2) Abnormal urinalysis: Plan: UA suggest possible UTI c/w IV ceftriaxone Urine culture has been negative We will discontinue antibiotic (3) Persistent atrial fibrillation: Plan: Rate controlled on atenolol, digoxin, diltiazem On Coumadin, therapeutic Heart rate without any symptoms and is therapeutic (4) Hypertension: Plan: Continue atenolol, diltiazem, lisinopril Blood pressure remains reasonably controlled in the 80s 150 over (5) Type 2 diabetes mellitus: Plan: Hgb A1c 7.2 10/2022 Hold metformin and utilize NovoLog per protocol while hospitalized We will continue blood pressure medication related anything more I did like yesterday" is some discomfort yesterday right (6) Diastolic dysfunction: Plan: Appears euvolemic, continue furosemide DVT PROPHYLAXIS: On Coumadin Discharged to [facility] this afternoon Admission and Anticipated Discharge Date Admission Date: November 17, 2022 Subjective 11/19/2022 The patient was seen and examined in medical floor She has been stable and only complains unsteadiness on feet which has been going on for years She denies any significant symptoms and she will be going to [facility] this Afternoon Review of Systems Review of Systems: All systems reviewed and are unremarkable as noted below Physical Exam Physical Exam: Lying in bed comfortably Constitutional: well developed, well nourished and + obese; not ill appearing Eyes: PERRL, conjunctivae normal, anicteric sclerae ENMT: external ear and nose normal, oropharynx normal Neck: trachea midline, no thyromegaly Respiratory: no respiratory distress Auscultation: lungs clear to auscultation bilaterally Cardiovascular: Rate/Rhythm: regular rate and regular rhythm; not tachycardic Heart Sounds: normal S1 and normal S2; no murmur Extremities: + edema (1+ edema bilaterally) Gastrointestinal (Abdomen): Inspection/Auscultation: normal bowel sounds; abdomen not distended Percussion/Palpation: abdomen soft; abdomen nontender Musculoskeletal: No acute arthritis involving any of the joint Neurologic: Alert, awake and oriented x3. Generally weak but no focal neurodeficit Results & Data Results & Data Vital Signs (Past 12 Hours) Vital Signs Temp Pulse Resp BP Pulse Ox O2 Del Method 11/19/22 06:57 36.4 C L 73 16 158/84 H 92 Room Air Medications Administered Current Inpatient Medications Acetaminophen (Acetaminophen 325 Mg Tab) 650 mg PO Q4H PRN PRN Reason: pain/fever Stop: 12/16/22 15:18 Allopurinol (Allopurinol 300 Mg Tab) 300 mg PO [facility] Stop: 12/17/22 08:59 Last Admin: 11/19/22 08:46 Dose: 300 mg Aspirin (Aspirin 81 Mg Ectab) 81 mg PO [facility] Stop: 12/16/22 20:59 Last Admin: 11/18/22 20:06 Dose: 81 mg Atenolol (Atenolol 25 Mg Tablet) 75 mg PO [facility] Stop: 12/17/22 08:59 Last Admin: 11/19/22 08:46 Dose: 75 mg Cyanocobalamin (Cyanocobalamin (B-12) 500 Mcg Tablet) 1,000 mcg PO [facility] Stop: 12/16/22 20:59 Last Admin: 11/18/22 20:07 Dose: 1,000 mcg Dextrose (Dextrose 50% 50 Ml Syringe) 25 - 50 ml IV UD PRN; Protocol PRN Reason: Hypoglycemia Protocol Stop: 12/16/22 15:18 Digoxin (Digoxin 0.25 Mg Tab) 0.25 mg PO DAILY@1600 [facility] Stop: 12/16/22 15:59 Last Admin: 11/18/22 15:33 Dose: Not Given Diltiazem HCl (Diltiazem Hcl 120 Mg Capcr) 120 mg PO [facility] Stop: 12/17/22 08:59 Last Admin: 11/19/22 08:46 Dose: 120 mg Furosemide (Furosemide 40 Mg Tab) 40 mg PO [facility] Stop: 12/17/22 08:59 Last Admin: 11/19/22 08:46 Dose: 40 mg Glucagon (Glucagon For Inj 1 Mg Vial) 1 mg SQ UD PRN; Protocol PRN Reason: Hypoglycemia Protocol Stop: 12/16/22 15:18 Glucose (Glucose 10 Tab/Tube) 4 - 8 tab PO UD PRN; Protocol PRN Reason: Hypoglycemia Treatment Stop: 12/16/22 15:18 Glucose (Glucose 40% Gel 15 Gm Tube) 15 - 30 gm PO UD PRN; Protocol PRN Reason: Hypoglycemia Protocol Stop: 12/16/22 15:18 Ceftriaxone Sodium 2,000 mg/ (Dextrose) 70 mls @ 100 mls/hr IV Q24H [facility]; Protocol Stop: 11/21/22 15:44 Last Infusion: 11/18/22 16:35 Dose: Infused Insulin Aspart (Insulin Aspart Per Unit Charge) 0 units SC ACHS [facility] Stop: 12/16/22 16:29 Last Admin: 11/19/22 08:50 Dose: 2 units Lisinopril (Lisinopril 20 Mg Tab) 20 mg PO BID [facility] Stop: 12/16/22 20:59 Last Admin: 11/19/22 08:46 Dose: 20 mg Miscellaneous (Carbohydrates For Hypoglycemia ) 15 - 30 gm PO UD PRN PRN Reason: Hypoglycemia Protocol Stop: 12/16/22 15:18 Polyethylene Glycol (Polyethylene (Miralax) 17 Gm Pack) 17 gm PO DAILY PRN PRN Reason: Constipation Stop: 12/18/22 08:26 Last Admin: 11/18/22 08:35 Dose: 17 gm Pravastatin Sodium (Pravastatin Sod 40 Mg Tab) 40 mg PO HS [facility] Stop: 12/16/22 20:59 Last Admin: 11/18/22 20:07 Dose: 40 mg Vitamin D (Cholecalciferol 5,000 Units 125 Mcg Tab) 5,000 units PO QPM [facility] Stop: 12/16/22 20:59 Last Admin: 11/18/22 20:06 Dose: 5,000 units Warfarin Sodium (Warfarin Sod 2.5 Mg Tab) 2.5 mg PO [id number]@1600 [facility] Stop: 12/16/22 15:59 Last Admin: 11/18/22 15:32 Dose: 2.5 mg Warfarin Sodium (Warfarin Sod 5 Mg Tab) 5 mg PO [id number]@1600 [facility] Stop: 12/17/22 15:59 Last Admin: 11/17/22 16:03 Dose: 5 mg
[2022-11-19] MEDS: WARFARIN SOD 2.5 MG TAB PO SCH (14:00)
--- NOTE | 2022-11-20 07:14 | Discharge Summary ---
Date of Service November 20, 2022 Admission HPI Per Admitting Provider 87-year-old female with PMH DM type II, dyslipidemia, persistent atrial fibrillation on Coumadin, HTN, CKD stage III, gout, history of bilateral total knee replacements, history of breast cancer s/p bilateral mastectomy, and other problems listed below who presents to the ED for evaluation of generalized weakness. History obtained from the patient and review of outpatient PCP and cardiology records. Patient reports a longstanding history of issues with her left knee. Reports that she has had 4 surgeries on her left knee. She chronically wears a brace. States that left knee gives out on her frequently. She has had 3 falls over the past 3 weeks due to her left knee giving out her. Today, patient was unable to stand from her lift chair. Patient was brought to the ED for further relation. Patient states she otherwise has been feeling well recently. Denies any other recent illnesses, fevers, chills. No chest pain or shortness of breath. Has chronic lower extremity edema which is unchanged at baseline. Denies lightheadedness, dizziness, diaphoresis, syncopal events. No abdominal pain, nausea, vomiting, diarrhea. Denies urinary symptoms. In the ED, patient's labs are essentially unremarkable. UA suggest possible UTI. Bilateral knee x-rays are unremarkable. Admission Exam Per Admitting Provider Constitutional: WD/WN, vitals as above + obese Eyes: PERRL, conjunctivae normal, anicteric sclerae ENMT: external ear and nose normal, oropharynx normal Respiratory: normal respiratory effort, lungs clear to auscultation Cardiovascular: Rate/Rhythm: regular rate and + irregularly irregular Vessels: normal peripheral pulses Extremities: + edema (+1-2 edema BLE) Gastrointestinal (Abdomen): normal bowel sounds, soft, nontender, no hepatosplenomegaly Musculoskeletal: no cyanosis or clubbing, extremities motor strength 5/5 Skin: no rashes, warm and dry Neurologic: PERRL, EOMI, accommodation nl, no face palsy, no dysarthria Psychiatric: A+Ox3, euthymic affect Principal Diagnosis Ambulatory dysfunction, persistent atrial fibrillation, type 2 diabetes, diastolic dysfunction Discharge Exam Lying in bed comfortably Constitutional well developed, well nourished and + obese; not ill appearing Eyes PERRL, conjunctivae normal, anicteric sclerae ENMT external ear and nose normal, oropharynx normal Neck trachea midline, no thyromegaly Respiratory no respiratory distress Auscultation: lungs clear to auscultation bilaterally Cardiovascular Rate/Rhythm: regular rate and regular rhythm; not tachycardic Heart Sounds: normal S1 and normal S2; no murmur Extremities: + edema (1+ edema bilaterally) Gastrointestinal (Abdomen) Inspection/Auscultation: normal bowel sounds; abdomen not distended Percussion/Palpation: abdomen soft; abdomen nontender Discharge Data Allergies Allergy/AdvReac Type Severity Reaction Status Date / Time No Known Allergies Allergy Verified 11/16/22 14:00 Consultations 11/16/22 13:41 ED Decision to Admit Stat Hospital Course (1) Ambulatory dysfunction: Admitted to [facility] Patient presenting from home with frequent falls over the past 2 weeks and inability to stand. History of chronic issues with left knee. Patient denies pain. Bilateral knee x-rays unremarkable. PT/OT, case management consults for rehab placement The patient she remains stable and has been accepted to [facility] She will be discharged to [facility] this afternoon (2) Abnormal urinalysis: UA suggest possible UTI c/w IV ceftriaxone Urine culture has been negative We will discontinue antibiotic (3) Persistent atrial fibrillation: Rate controlled on atenolol, digoxin, diltiazem On Coumadin, therapeutic Heart rate without any symptoms and is therapeutic (4) Hypertension: Continue atenolol, diltiazem, lisinopril Blood pressure remains reasonably controlled in the 80s 150 over (5) Type 2 diabetes mellitus: Hgb A1c 7.2 10/2022 Hold metformin and utilize NovoLog per protocol while hospitalized We will continue blood pressure medication related anything more I did like yesterday" is some discomfort yesterday right (6) Diastolic dysfunction: Appears euvolemic, continue furosemide DVT PROPHYLAXIS: On Coumadin Discharged to [facility] this afternoon Total Time Total Time Spent Total Time Spent (In Minutes): 35 minutes Discharge Plan Discharge Items Patient Disposition: [facility] Reason For Visit: WEAKNESS Discharge Diagnosis: Ambulatory dysfunction, persistent atrial fibrillation, type 2 diabetes, diastolic dysfunction Condition on Discharge: Good Activity: Resume your previous activity Non-emergency contact: Primary Care Provider Call non-emergency contact if: you have any medication questions and your symptoms worsen Follow-up/Referrals: Angeli Lee MD [Primary Care Provider] - (Please make an appointment with your PCP within 1 week following discharge from the facility) Diet: Carb Consistent or DM2 and Heart Healthy Addtl Attending Provider Instructions: Please take precautions to avoid falls Continue PT and OT Take your medications as advised Please keep appointment with your healthcare provider Continue Coumadin and maintain INR around 2-3 Pending Studies at Discharge: No Stand-Alone Forms: My [facility] Skilled Items Patient informed of condition?: Yes DNR: No Discharge Level of Care: Skilled Communicable Disease: No Discharge Prognosis: Stable Lines: None Urinary Catheter: No Medications and DC Order Prescriptions: Continued warfarin 2.5 mg Tablet 2.5 mg PO 5XWK Rx Instructions: Thursday, Thursday, Thursday, Thursday and Thursday acetaminophen 500 mg Tablet 1,000 mg PO QAM diphenhydramine-acetaminophen [Tylenol PM Extra Strength] 25-500 mg Tablet 2 tab PO HS glipizide 5 mg tablet 5 mg PO BID PreserVision AREDS-2 250-90-40-1 mg Capsule 1 tab PO BID furosemide 40 mg tablet 40 mg PO QAM pravastatin 40 mg tablet 40 mg PO HS lisinopril 20 mg tablet 20 mg PO BID cyanocobalamin (vitamin B-12) [Vitamin B-12] 1,000 mcg Tablet 1,000 mcg PO HS digoxin 250 mcg (0.25 mg) tablet 250 mcg PO QPM aspirin 81 mg Tablet,Delayed Release (Dr/Ec) 81 mg PO HS warfarin 5 mg tablet 5 mg PO 2XWK Rx Instructions: Thursday and diltiazem HCl 120 mg capsule,extended release 24hr 120 mg PO QAM allopurinol 300 mg tablet 300 mg PO QAM atenolol 50 mg tablet 75 mg PO QAM apple cider vinegar 500 mg Tablet 500 mg PO QDD cholecalciferol (vitamin D3) [Vitamin D3] 125 mcg (5,000 unit) Tablet 250 mcg PO QPM Discharge Orders: Discharge Order- CHF (Routine); Ordered 11/19/22 Ordered By: Preston Saez Admission Data Admit Date/Time: 11/17/22 15:42 Attending Provider: Preston Saez Admit Provider: Leonard Soto Primary Care Provider: Angeli Lee Other Providers: Leonard Soto ; [place] Other Interventions: Discharge Summary Assessment (RN) Last Done: 11/19/22 13:46
== END 2022-11-19 14:26 | DRG 690 ==
LOC: ED 11:10 → 3N 11:10 → SUATTDRO 11-17 15:42

== ENCOUNTER 2024-05-21 10:41 | Inpatient (IN) ==
--- OUTSIDE RECORDS SUMMARY | 2024-05-21 10:46 | External Medical Summary | Summary of Care ---
Author Name Unknown Organization [facility] Address [address] [place] [facility] [place] [address] Phone [phone] Care Team Providers Care Environmental Communications Specialist Name Role Phone Angeli Lee MD Primary Care Provider + Reason for Visit * Reason Onset Date Comments Advice 05/03/2024 Encounter Details Date Type Department Care Team (Late st Contact Info) Description 05/03/2024 Telephone General Internal Medicine [facility] [address] [facility] [place] [address] Angeli Lee MD [address] [place] [address] Advice Allergies No known active allergiesdocumented as of this encounter (statuses as of 05/04/2024) Medications GLUCOMETER ELITE CLASSIC KITIndications:D M type 2, goal A1c below 7 check sugar 2-3 times a week. one 0 8 Active FREESTYLE LITE STRPIndications: DM type 2, goal A1c below 7 check sugars tid 1 11 8 Active FREESTYLE LANCETS MISCIndications: DM type 2, goal A1c below 7 check blood sugars 3 times daily 1 box 11 8 Active ASPIRIN 81 MG PO TBEC Take by mouth at bedtime . Active Cholecalciferol (VITAMIN D3) 55043 units TABS Take 1 Tab by mouth every evening. Active Cyanocobalamin (VITAMIN B12) 1000 MCG TBCR Take by mouth at bedtime . Active Misc Natural Products (APPLE CIDER VINEGAR DIET) TABS Take by mouth. Acti ve Apple Cider Vinegar 500 MG Oral Tablet Take by mouth 1 Tablet daily with dinner . Active diphenhydrAMINE- APAP (sleep) 25-500 MG Oral Tablet Take 2 Tablets by mouth at bedtime. 3 Active PreserVision AREDS Oral Capsule Take 1 Capsule by mouth in the morning and 1 Capsule in the evening. 3 Active DIURETIC TITRATION PLANIndications: Edema, unspecified type If no improvement on day 3, contact heart failure managing provider. 1 Each 3 Active Warfarin Sodium 5 MG Oral Tablet (Coumadin)Indica tions:HTN, goal below 140/80,Persisten t atrial fibrillation (HCC),High triglycerides,At rial fibrillation (HCC),Dyslipidem ia, goal LDL below 100 Take 1 Tablet by mouth every evening. 90 Tablet 3 4 Active Allopurinol 300 MG Oral Tablet (Zyloprim)Indica tions:Gouty arthropathy,Type 2 diabetes mellitus with hemoglobin A1c goal of less than 7.0% (HCC) TAKE 1 TABLET BY MOUTH IN THE MORNING 90 Tablet 2 4 Active Pravastatin Sodium 40 MG Oral Tablet (Pravachol)Indic ations:High triglycerides,Dy slipidemia, goal LDL below 100 Take 1 Tablet by mouth at bedtime. 90 Tablet 3 4 Active dilTIAZem HCl ER Coated Beads 120 MG Oral Capsule Extended Release 24 Hour (Cardizem CD)Indications:P ersistent atrial fibrillation (HCC) TAKE 1 CAPSULE IN THE MORNING 90 Capsule 3 4 Active Lisinopril 10 MG Oral Tablet (Prinivil)Indica tions:HTN, goal below 140/80 TAKE 1 TABLET BY MOUTH IN THE MORNING 90 Tablet 3 4 Active Nystatin 914303 UNIT/GM External Powder (Nystop) APPLY TOPICALLY TO AFFECTED AREA 3 TIMES A DAY. APPLY FOR ABDOMINAL FOLDS TWICE A DAY NEEDED 60 g 3 4 Active Fenofibrate 48 MG Oral Tablet (Tricor)Indicati ons:Dyslipidemia , goal LDL below 100 Take 1 Tablet by mouth in the morning. 30 Tablet 5 4 Active Metoprolol Succinate ER 50 MG Oral Tablet Extended Release 24 Hour (toPROL XL)Indications:C hronic atrial fibrillation (HCC),HTN, goal below 140/90 TAKE ONE TABLET BY MOUTH IN THE MORNING 90 Tablet 1 4 Active Digoxin 125 MCG Oral Tablet (Lanoxin) Take 1 Tablet by mouth in the morning. Take three times a week on Thursday, and Thursday. 36 Tablet 4 Active Furosemide 40 MG Oral Tablet (Lasix)Indicatio ns:HTN, goal below 140/80,Persisten t atrial fibrillation (HCC),High triglycerides,At rial fibrillation (HCC),Dyslipidem ia, goal LDL below 100 TAKE 1 TABLET BY MOUTH IN THE MORNING 90 Tablet 3 4 Active Hospital, Clinic, or Other Facility Administered Medication Ordered Dose Route Frequency Start Date End Date Status Faricimab-svoa (Vabysmo) intravitreal inj 6 mgIndications:Exudative age-related macular degeneration of left eye with active choroidal neovascularization (HCC) 6 mg IZ PRN 06/30/2023 06/29/2024 Active ROPivacaine (Naropin) inj 1.5 mgIndications:Exudative age-related macular degeneration of left eye with active choroidal neovascularization (HCC) 1.5 mg IJ PRN 06/30/2023 06/29/2024 Active documented as of this encounter (statuses as of 05/04/2024) Active Problems Problem Noted Date Diagnosed Date 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 L KNEE JOINT REVISION 12/31/2010 DYSLIPIDEMIA, GOAL LDL BELOW 100 05/10/2009 Overview (05/10/2009): Per Lipid Taxonomy. Type 2 diabetes mellitus wit h hemoglobin A1c goal of less than 7.0% 03/29/2009 Overview (09/25/2015): Per Diabetes Taxonomy. ICD-10 update of inactive term 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 Overview (03/15/2009): ICD-9 Code Update prison current use of anticoagulant therapy 1 07/17/2002 Anticoagulation management encounter 11/24/2001 Atrial fibrillation 05/26/2001 documented as of this encounter (statuses as of 05/04/2024) Resolved Problems Problem Noted Date Diagnosed Date Resolved Date Body mass index (BMI) of 45. 0 to 49.9 in adult 03/14/2024 04/14/2024 Overview: Per Obesity protocol - Bilateral malignant neoplasm of breast in female, estrogen receptor positive 03/10/202302/17 Overview (02/18/2024): 12/13/19 Hem/Onc note "Planning for total 5 years of anastrozole in her case which she will complete in January 2020. Now she has done well for the 5 years, no evidence of recurrent disease, there is no need for oncology follow-up." 09/22/23 Int Med note "history of bilateral breast cancer, status post completion of the treatment" Atrial fibrillation, unspecified type 11/12/2022 02/18/2024 Overview (02/18/2024): duplicate Type 2 diabetes mellitus wit h stage 3b chronic kidney disease 10/06/2022 10/14/2023 Overview: Per CKD protocol Chronic kidney disease, stage 3b 10/06/2022 10/14/2023 Overview: Per CKD protocol Chronic kidney disease, stage 3a 11/13/2020 10/08/2022 Overview: Per CKD protocol Type 2 diabetes mellitus wit h stage 3a chronic kidney disease 10/09/2020 10/08/2022 Overview: Per CKD protocol Diabetes mellitus with stage 3 chronic kidney disease 11/08/2018 10/11/2020 Overview: Per CKD protocol Infiltrating ductal carcinom a of bilateral female breasts 11/04/2018 02/18/2024 Overview (02/18/2024): 12/13/19 Hem/Onc note "Planning for total 5 years of anastrozole in her case which she will complete in January 2020. Now she has done well for the 5 years, no evidence of recurrent disease, there is no need for oncology follow-up." 09/22/23 Int Med note "history of bilateral breast cancer, status post completion of the treatment" Body mass index (BMI) of 40. 0 to 44.9 in adult 03/02/2017 03/17/2024 Overview: Per Obesity protocol #1 Carcinoma in situ of breast 01/08/2015 02/18/2024 Overview (02/18/2024): 12/13/19 Hem/Onc note "Planning for total 5 years of anastrozole in her case which she will complete in January 2020. Now she has done well for the 5 years, no evidence of recurrent disease, there is no need for oncology follow-up." 09/22/23 Int Med note "history of bilateral breast cancer, status post completion of the treatment" Bilateral breast cancer 01/08/201501/30 Overview (02/18/2024): 12/13/19 Hem/Onc note "Planning for total 5 years of anastrozole in her case which she will complete in January 2020. Now she has done well for the 5 years, no evidence of recurrent disease, there is no need for oncology follow-up." 09/22/23 Int Med note "history of bilateral breast cancer, status post completion of the treatment" HTN, GOAL BELOW 140/80 01/19/201209/05 Overview: Per HTN Protocol #27. HTN, GOAL BELOW 130/80 06/27/200901/21 Overview (06/27/2009): Per HTN Taxonomy. Benign neoplasm of colon 06/07/200711/2016 Overview (06/14/2007): adenomatous polyps--repeat 3 years Dyslipidemia, goal to be determined 08/18/2006 05/10/2009 Overview (05/10/2009): Per Lipid Taxonomy. ADVANCE DIRECTIVE INFORMATION 11/21/2004 04/07/2017 Overview (11/21/2004): No, Advance Directive brochure offered , patient declined. Gouty arthropathy 02/16/2004 03/15/2009 Overview (09/04/2015): ICD-9 Code Update ICD-10 update of inactive term Type 2 diabetes mellitus wit h hemoglobin A1c goal of less than 7.0% 10/28/2002 03/29/2009 Overview (09/25/2015): Per Diabetes Taxonomy. ICD-10 update of inactive term High triglycerides 08/18/2002 2 HTN, goal below 140/90 05/26/200106/27 Overview (06/27/2009): Per HTN Taxonomy. Type 2 diabetes mellitus wit h hemoglobin A1c goal of less than 7.0% 07/06/2008 Overview (09/25/2015): Resolved per Duplicate Protocol #2. ICD-10 update of inactive term Type 2 diabetes mellitus wit h hemoglobin A1c goal of less than 7.0% 07/06/2008 Overview (09/25/2015): Resolved per Duplicate Protocol #2. ICD-10 update of inactive term documented as of this encounter (statuses as of 05/04/2024) Immunizations Name Administration Dates Next Due COVID-19 mRNA, LNP-s, No Pre serve, 2-Dose Series ([facility]) 11/25/2021,05/14/2021,07/28/2020,10/2020 COVID-19, LNP-s, No Preserve , Joseph-sucrose, Ages 12+ ([facility]) 11/25/2021 COVID-19, MRNA-LNP, 24-25, P R, 30MCG/0.3ML, IM, 12YRS AND ABOVE (Jang[employer] SMS) 03/11/2024 COVID-19, MRNA-LNP, PF, 30 M CG/0.3 mL, 12 YRS AND ABOVE, IM (Alerts) 04/07/2023 DTaP Dipth/Tet/Acell Pertussis (Infanrix), Peds 10/31/2003 PPD 11/28/2022,11/19/2022 Pneumococcal Conjugate Vacc, 13 Valent (Prevnar) 12/24/2014 Pneumococcal Polysaccharide PPV23 (Pneumovax) 12/24/2014 RSV Vac., Bivalent, Perfusio n F, Pf,0.5 Ml (Abrysvo) 04/21/2023 Season Influenza, Quad, PF, Adjuvanted, 65+ Yrs, IM (FLUAD) 02/08/2020 Seasonal Influenza Vac., MDV , IM, 0.5 mL (Fluzone) 02/16/2014,03/17/2013,03/05/2012,01/31,03/19/2010,03/07/2009,03/15/20 08,03/16/2007,03/25/2006 03/07/2010 Seasonal Influenza Virus Vac cine, Unspecified Formulation 02/08/2020,03/03/2019,04/06/2018,11/2016,02/14/2016,03/15/2015,02/17/20 14,03/17/2013,03/05/2012,02/27/2011,1 ,03/07/2009,03/15/2008,03/16,03/25/2006,03/31/2005, 4,04/13/2003,05/21/2000 Seasonal Influenza, High Dos e, Trivalent, PF, IM (Fluzone HD) 02/19/2024 Seasonal Influenza, PF, 6 M & above, IM , (FluLaval or Fluzone) 03/03/2019,04/06/2018,04/07/2017 Seasonal Influenza, Quadriva lent Hd (Fluzone Hd) 03/10/2023,04/18/2022,03/13/2021 Seasonal Influenza, Quadriva lent, No Preserve, IM 02/14/2016,03/15/2015 TD - Tetanus/Diptheria (ADULT) 10/18/2019 TDAP (age 10 and older)(Boostrix) 10/18/2019,06/2003 TDAP, Age 7 and older, IM (Adacel) 10/31/2003 Varicella Zoster Vaccine (Adult) 12/13/2013 Zoster Vaccine Recombinant (Shingrix) 02/08/2021 ,11/15/2020 documented as of this encounter Social History Tobacco Use Types Packs/Day Years Used Date Smoking Tobacco: Never Smokeless Tobacco: Never Alcohol Use Standard Drinks/Week Comments Yes 0 (1 standard drink = 0.6 oz pur e alcohol) rare PHQ-2 Answer Date Recorded PHQ Adult Total Score 2 11/01/2020 Hunger Vital Sign Answer Date Recorded Within the past 12 months, y ou worried that your food would run out before you got the money to buy more. Never true 11/02/19 21 Within the past 12 months, t he food you bought just didn't last and you didn't have money to get more. Never true 11/01/2020 Comments No Sex and Gender Information Value Date Recorded Sex Assigned at Female 11/04/2018 9:22 AM EDT Legal Sex Female 6:02 AM EST Gender Identity Female 11/04/2018 9:22 AM EDT Sexual Orientation Straight 11/04/2018 9: 22 AM EDT Occupation Industry Job Start Date Job End Date Not on file Not on file Not on file Not on file documented as of this encounter Miscellaneous Notes * Telephone Encounter - Ct Gardner CMA - 05/04/2024 8:50 AM EST MyG sent. * Telephone Encounter - Angeli Lee MD - 05/04/2024 8:16 AM EST Patient is scheduled for mobile lab on May 23 and I did put the order for hemoglobin A1c in the system. They can check it at that time and patient's family should make sure the film laboratory technician is aware tocheck hemoglobin A1c at that time. * Telephone Encounter - Ct Gardner CMA - 05/03/2024 1:45 PM EST Spoke with patients daughter, she verbalized understanding. She is concerned that her mother's nextappointment is not until September and would not like to wait that long to recheck. Please see other TE. * Telephone Encounter - Angeli Lee MD - 05/03/2024 10:37 AM EST Patient's hemoglobin A1c was very low under 5 and no need to restart glipizide at this time as it can increase the risk of hypoglycemia which can be life- threatening. I would just continue balanced diet, hydration and we can redo hemoglobin A1c when we see her next time. * Telephone Encounter - Siri Sneed LPN - 05/03/2024 8:51 AM EST Daughter calling since stopping the glipizide on 04/25, pt has been more fatigue. FBS today is 204. Daughter purchased glucometer yesterday this is first reading. She denies any other sx, including sx of infection. Other than pt having urine with strong odor this is on going prior to stopping glipizide. Daughter is concern pt should restart glipizide to control BS. Please advise. * Telephone Encounter - Therese Lock OSA - 05/03/2024 8:48 AM EST Reason for patient's call: Patients daughter wants to speak to nurse about patient sleeping all daysince being taken off med Caller was transferred to Siri at the nurse line. documented in this encounter Plan of Treatment Upcoming Encounters Date Type Department Care Team (Late st Contact Info) Description 05/23/2024 7:20 AM EST Laboratory Lab Mobile Phlebotomy [facility] [address] [place] [address] [facility], [facility] Mobile Home Draw [address] [place] [address] 05/24/2024 6:00 AM EST Anticoagulation [facility], [facility] [address] [place] [address] [place] [address] [place] [address] 05/27/2024 2:20 PM EST Office Visit Nephrology, [facility] [address] [facility] [place] [address] Levy Garcia MD [address] [facility] [place] [address] 06/06/2024 10:15 AM EST Office Visit Ophthalmology, [facility] [address] [place] [address] Kodi Souza DO [address] [place] [address] 09/02/2024 10:00 AM EDT Office Visit Cardiology, [facility] [address] [place] [address] Dasia Cohen CRNP [address] [place] [address] 09/29/2024 9:20 AM EDT Office Visit General Internal Medicine [facility] [address] [place] [address] Angeli Lee MD [address] [facility] [place] [address] Scheduled Orders Name Type Priority Associated Diagnoses Orde r Schedule HEMOGLOBIN A1C Lab Routine Type 2 diabetes mellitus with hemoglobin A1c goal of less than 7.0% (HCC) Expected: 05/04/2024 (Approximate), Expires: 05/04/2025 Health Maintenance Due Date Last Done Comments Adult Wellness Visit 06/07/2020 06/07/2019 Depression Screening 11/01/2021 11/01/2020 Albumin/Creatinine Ratio 08/29/2023 023, 08/20/2021, 10/28/2018, Additional history exists Diabetic Foot Exam 12/19/2023 12/18/2022, 0 11/01/2020, 11/04/2018, Additional history exists COVID-19 Vaccine ( season) 2024 03/11/2024, 04/07/2023, 11/25/2021, Additional history exists Nephrology Referral 09/07/2024 09/08/2023, 1 Hgb 09/16/2024 09/17/2023, 10/30, 09/17/2022, Additional history exists PTH 09/16/2024 09/17/2023, 08/30, 11/04/2018, Additional history exists Phosphate 09/16/2024 09/17/2023, 08/30, 05/09/2021, Additional history exists HbA1c 09/28/2024 03/30/2024, 08/30, 12/31/2022, Additional history exists Diabetic Eye Exam 11/01/2024 11/02/2023, , 01/27/2023, Additional history exists DIG LEVEL FOR MEDICATION MONITORING YEARLY 04/25/2025 04/25/2024, 09/17/2023, 12/18/2022, Additional history exists DTap/Tdap Vaccines (6 - Td or Tdap) 10/17/2029 10/18/2019, 10/18/2019, 10/31/2003, Additional history exists Colonoscopy Discontinued 11/20/2010, 06/07/2007 Pneumococcal Vaccine: 65+ Years Completed 12/24/2014, 12/24/2014, 05/04/2004 Zoster Vaccines Completed 02/08/2021, 10/30, 12/13/2013 Influenza Vaccine (FLU shot) Completed 02/19/2024, 03/10/2023, 04/18/2022, Additional history exists HPV (Gardasil) Vaccine Aged Out No lo nger eligible based on patient's age to complete this topic Hepatitis B Vaccine Aged Out No longe r eligible based on patient's age to complete this topic MENINGOCOCCAL (MENACTRA/MENVEO) Aged Out No longer eligible based on patient's age to complete this topic documented as of this encounter Medical Devices Implanted Type Area Orthotic Practitioner Device Identifier Shelf Expiration Date Model / Serial / Lot Lens Intraoc 25.5 - [id number] - [id number] Implanted:Qty: 1 on 09/03/2021 by Jeffrey Rodriguez MD at OR [facility] Left: Eye [employer] 09/28/2025 [id number] / [id number] / [id number] Lens Intraoc 24.5 - [id number] - [id number] Implanted:Qty: 1 on 09/17/2021 by Jeffrey Rodriguez MD at OR [facility] Right: Eye [employer] 10/29/2025 [id number] / [id number] / [id number] documented as of this encounter Visit Diagnoses Diagnosis Type 2 diabetes mellitus with hemoglobin A1c goal of less than 7.0% (HCC)- Primary documented in this encounter Care Teams Environmental Communications Specialist Relationship Specialty Start Date End Date Angeli Lee MD [address] [place] [address], [place] [address] PCP - General 11/02/08 documented as of this encounter
--- OUTSIDE RECORDS SUMMARY | 2024-05-21 10:46 | External Medical Summary | Summary of Care ---
Author Name Unknown Organization [facility] Address [address] [place] [address] Phone [phone] Care Team Providers Care Retinal Surgeon Name Role Phone Angeli Lee MD Primary Care Provider + Reason for Visit * Reason Comments Follow Up Encounter Details Date Type Department Care Team (Latest Contact Info) Description 03/30/2024 10:20 AM EDT Office Visit General Internal Medicine [facility] [place] [address] [place] [address] Angeli Lee MD [address] [facility] [place] [address] Type 2 diabetes mellitus with hemoglobin A1c goal of less than 7.0% (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); HTN, goal below 140/90; Chronic kidney disease, stage 4 (severe) ([facility]); FPC current use of anticoagulant therapy; DYSLIPIDEMIA, GOAL LDL BELOW 100 Allergies No known active allergiesdocumented as of this encounter (statuses as of 04/18/2024) Medications GLUCOMETER ELITE CLASSIC KITIndications:D M type 2, goal A1c below 7 check sugar 2-3 times a week. one 0 008 Active FREESTYLE LITE STRPIndications: DM type 2, goal A1c below 7 check sugars tid 1 11 008 Active FREESTYLE LANCETS MISCIndications: DM type 2, goal A1c below 7 check blood sugars 3 times daily 1 box 11 008 Active ASPIRIN 81 MG PO TBEC Take by mouth at bedtime . Active Cholecalciferol (VITAMIN D3) 00664 units TABS Take 1 Tab by mouth [...] Take 2 Tablets by mouth at bedtime. 023 Active PreserVision AREDS Oral Capsule Take 1 Capsule by mouth in the morning and 1 Capsule in the evening. 023 Active DIURETIC TITRATION PLANIndications: Edema, unspecified type If no improvement on day 3, contact heart failure managing provider. 1 Each 023 Active Warfarin Sodium 5 MG Oral Tablet (Coumadin)Indica tions:HTN, goal below 140/80,Persisten t atrial fibrillation (HCC),High triglycerides,At rial fibrillation (HCC),Dyslipidem ia, goal LDL below 100 Take 1 Tablet by mouth every evening. 90 Tablet 3 024 Active Furosemide 40 MG Oral Tablet (Lasix)Indicatio ns:HTN, goal below 140/80,Persisten t atrial fibrillation (HCC),High triglycerides,At rial fibrillation (HCC),Dyslipidem ia, goal LDL below 100 TAKE 1 TABLET BY MOUTH IN THE MORNING 90 Tablet 3 024 Active Allopurinol 300 MG Oral Tablet (Zyloprim)Indica tions:Gouty arthropathy,Type 2 diabetes mellitus with hemoglobin A1c goal of less than 7.0% (HCC) TAKE 1 TABLET BY MOUTH IN THE MORNING 90 Tablet 2 024 Active Pravastatin Sodium 40 MG Oral Tablet (Pravachol)Indic ations:High triglycerides,Dy slipidemia, goal LDL below 100 Take 1 Tablet by mouth at bedtime. 90 Tablet 3 024 Active dilTIAZem HCl ER Coated Beads 120 MG Oral Capsule Extended Release 24 Hour (Cardizem CD)Indications:P ersistent atrial fibrillation (HCC) TAKE 1 CAPSULE IN THE MORNING 90 Capsule 3 024 Active Lisinopril 10 MG Oral Tablet (Prinivil)Indica tions:HTN, goal below 140/80 TAKE 1 TABLET BY MOUTH IN THE MORNING 90 Tablet 3 024 Active glipiZIDE 5 MG Oral Tablet (Glucotrol) TAKE 1 TABLET EVERY MORNING AND 1 TABLET BEFORE BEDTIME (TAKE 30 MINUTES BEFORE MEALS). 180 Tablet 1 024 Active Nystatin 097102 UNIT/GM External Powder (Nystop) APPLY TOPICALLY TO AFFECTED AREA 3 TIMES A DAY. APPLY FOR ABDOMINAL FOLDS TWICE A DAY NEEDED 60 g 3 024 Active Fenofibrate 48 MG Oral Tablet (Tricor)Indicati ons:Dyslipidemia , goal LDL below 100 Take 1 Tablet by mouth in the morning. 30 Tablet 5 024 Active Digoxin 125 MCG Oral Tablet (Lanoxin) Take 1 Tablet by mouth in the morning. 34 Tablet 11 023 2023 Discontinued(R efill) Metoprolol Succinate ER 50 MG Oral Tablet Extended Release 24 Hour (toPROL XL)Indications:C hronic atrial fibrillation (HCC),HTN, goal below 140/90 TAKE ONE TABLET BY MOUTH IN THE MORNING 90 Tablet 3 024 2023 Discontinued Comirnaty 30 MCG/0.3ML Intramuscular Suspension Prefilled Syringe Inject into a large muscle. 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 1 07/17/2002 Anticoagulation management encounter 11/24/2001 Atrial fibrillation 05/26/2001 documented as of this encounter (statuses as of 04/18/2024) Resolved Problems Problem Noted Date Diagnosed Date [...] as of this encounter (statuses as of 04/18/2024) Immunizations Name Administration Dates Next Due COVID-19 mRNA, LNP-s, No Pre serve, 2-Dose Series ([employer]) 11/25/2021,05/14/2021,07/28/2020,0210/2020 COVID-19, LNP-s, No Preserve , Joseph-sucrose, Ages 12+ ([employer]) 11/25/2021 COVID-19, MRNA-LNP, 24-25, P R, 30MCG/0.3ML, IM, 12YRS AND ABOVE ([employer]) 03/11/2024 COVID-19, MRNA-LNP, PF, 30 M CG/0.3 mL, 12 YRS AND ABOVE, IM ([employer]) 04/07/2023 DTaP Dipth/Tet/Acell Pertussis (Infanrix), Peds 10/31/2003 PPD 11/28/2022,11/19/2022 Pneumococcal Conjugate Vacc, 13 Valent (Prevnar) 12/24/2014 Pneumococcal Polysaccharide PPV23 (Pneumovax) 12/24/2014,05/04/2004 RSV Vac., Bivalent, Perfusio n F, Pf,0.5 Ml (Abrysvo) 04/21/2023 Season Influenza, Quad, PF, Adjuvanted, 65+ Yrs, IM (FLUAD) 02/08/2020 Seasonal Influenza Vac., MDV , IM, 0.5 mL (Fluzone) 02/16/2014,03/17/2013,03/05/2012,01/31,03/19/2010,03/07/2009,03/15/20 08,03/16/2007,03/25/2006,03/31/2005,1 07/06/2003,04/13/2003,05/21/2000 03/07/2010 Seasonal Influenza Virus Vac cine, Unspecified [...] on file documented as of this encounter Last Filed Vital Signs Vital Sign Reading Time Taken Comments Blood Pressure 132/80 03/30/2024 10:13 AM EDT Pulse 78 03/30/2024 10:13 AM EDT Temperature 35.9 C (96.7 F) 03/30/2024 10:13 AM E DT Respiratory Rate 18 03/30/2024 10:13 AM EDT Oxygen Saturation - - Inhaled Oxygen Concentration - - Weight - - Height - - Body Mass Index - - documented in this encounter Progress Notes * Angeli Lee MD - 03/30/2024 10:26 AM EDT HPI: Angela Lazar is a 89 year old female medical problems as listed below including but not limitedto persistent atrial fibrillation, and on anticoagulation, gouty arthritis, type 2 diabetes mellitus, hyperlipidemia, hypertension, morbid obesity, history of macular degeneration left eye, CKD, diastolic heart failure, chronic venous insufficiency who presents with: Chief Complaint Patient presents with Follow Up Patient is here for the recheck. Chart reviewed with the patient including current meds, last labs and HM. No acute event since we saw patient last time including no recent fall or injuries. Since we saw her last time her and that gives her still some grief. Patient hasa good family support. Accompanied by daughter today. Hemoglobin AIC Results: Lab Results Component Value Date/Time HEMOGLOBIN A1C - [facility] 7.3 (H) 09/17/2023 07:26 AM HEMOGLOBIN A1C - [facility] 7.5 (H) 12/31/2022 11:20 AM HEMOGLOBIN A1C - [facility] 7.2 (H) 11/11/2022 07:45 AM HEMOGLOBIN A1C - [facility] 6.9 (H) 05/03/2020 10:41 AM HEMOGLOBIN A1C - [facility] 6.8 (H) 10/18/2019 11:31 AM HEMOGLOBIN A1C - [facility] 6.6 (H) 10/28/2018 11:14 AM Echocardiogram 02/05/2024: Interpretation Summary The left ventricular cavity size is normal. The LV wall thickness is mildly increased (concentric). The left ventricular wall motion is normal. The qualitative LV ejection fraction is 55-59% (normal). There is severe biatrial enlargement The aortic valve is moderately calcified. Mild aortic valve stenosis is present. Moderate mitral regurgitation is present. Moderate tricuspid regurgitation is present. There is no evidence of pulmonary hypertension. In comparison to prior study of March 13, 2023, current pulmonary pressures by indirect measurement are lower. 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) DYSLIPIDEMIA, GOAL LDL BELOW 100 L KNEE JOINT REVISION HTN, goal below 140/90 Acquired absence of other toe(s), unspecified side ([facility]) Morbid obesity due to excess calories ([facility]) Exudative age-related macular degeneration of left eye with active choroidal neovascularization ([facility]) Type 2 diabetes mellitus with stage 4 chronic kidney disease, without long-term current use of insulin ([facility]) Chronic kidney disease, stage 4 (severe) ([facility]) Body mass index (BMI) of 45.0 to 49.9 in adult (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) Body mass index (BMI) 45.0-49.9, adult ([facility]) Current Outpatient Medications Medication Sig Dispense Refill GLUCOMETER ELITE CLASSIC KIT check sugar 2-3 times a week. one 0 FREESTYLE LITE STRP check sugars tid 1 11 FREESTYLE LANCETS MISC check blood sugars 3 times daily 1 box 11 ASPIRIN 81 MG PO TBEC Take by mouth at bedtime . Cholecalciferol (VITAMIN D3) 55108 units TABS Take 1 Tab by mouth every evening. Cyanocobalamin (VITAMIN B12) 1000 MCG TBCR Take by mouth at bedtime . Apple Cider Vinegar 500 MG Oral Tablet Take by mouth 1 Tablet daily with dinner . Digoxin 125 MCG Oral Tablet (Lanoxin) Take 1 Tablet by mouth in the morning. (Patient taking differently: Take 1 Tablet by mouth in the morning. Take three times a week on Thursday, and Thursday.) 34 Tablet 11 diphenhydrAMINE-APAP (sleep) 25-500 MG Oral Tablet Take 2 Tablets by mouth at bedtime. PreserVision AREDS Oral Capsule Take 1 Capsule by mouth in the morning and 1 Capsule in the evening. DIURETIC TITRATION PLAN If no improvement on day 3, contact heart failure managing provider. 1 Each0 Metoprolol Succinate ER 50 MG Oral Tablet Extended Release 24 Hour (toPROL XL) TAKE ONE TABLET BY MOUTH IN THE MORNING 90 Tablet 3 Warfarin Sodium 5 MG Oral Tablet (Coumadin) Take 1 Tablet by mouth every evening. 90 Tablet 3 Furosemide 40 MG Oral Tablet (Lasix) TAKE 1 TABLET BY MOUTH IN THE MORNING 90 Tablet 3 Allopurinol 300 MG Oral Tablet (Zyloprim) TAKE 1 TABLET BY MOUTH IN THE MORNING 90 Tablet 2 Pravastatin Sodium 40 MG Oral Tablet (Pravachol) Take 1 Tablet by mouth at bedtime. 90 Tablet 3 dilTIAZem HCl ER Coated Beads 120 MG Oral Capsule Extended Release 24 Hour (Cardizem CD) TAKE 1 CAPSULE IN THE MORNING 90 Capsule 3 Lisinopril 10 MG Oral Tablet (Prinivil) TAKE 1 TABLET BY MOUTH IN THE MORNING 90 Tablet 3 glipiZIDE 5 MG Oral Tablet (Glucotrol) TAKE 1 TABLET EVERY MORNING AND 1 TABLET BEFORE BEDTIME (TAKE 30 MINUTES BEFORE MEALS). 180 Tablet 1 Nystatin 430138 UNIT/GM External Powder (Nystop) APPLY TOPICALLY TO AFFECTED AREA 3 TIMES A DAY. APPLY FOR ABDOMINAL FOLDS TWICE A DAY NEEDED 60 g 3 Fenofibrate 48 MG Oral Tablet (Tricor) Take 1 Tablet by mouth in the morning. 30 Tablet 5 Misc Natural Products (APPLE CIDER VINEGAR DIET) TABS Take by mouth. Current Facility-Administered Medications Medication Dose Route Frequency Provider Last Rate Last Admin Faricimab-svoa (Vabysmo) intravitreal inj 6 mg 6 mg Intravitreal PRN Kodi Souza DO 6 mgat 03/11/24 1028 ROPivacaine (Naropin) inj 1.5 mg 1.5 mg Injection PRN Kodi Souza, DO 1.5 mg at 03/11/24 1028 The patient's medication list was reviewed and updated as needed. Review of patient's allergies indicates: No Known Allergies Past Medical History: Diagnosis Date Atrial fibrillation (HCC) A-Fib Benign neoplasm of colon 06/07/2007 adenomatous polyps--repeat 3 years Benign neoplasm of colon 11/20/2010 adenomatous polyps repeat in 5yrs Bilateral breast cancer (HCC) 01/08/2015 12/13/19 Hem/Onc note "Planning for total 5 years of anastrozole in her case which she will completein January 2020. Now she has done well for the 5 years, no evidence of recurrent disease, there is no need for oncology follow-up." 09/22/23 Int Med note "history of bilateral breast cancer, status post completion of the treatment" Bilateral malignant neoplasm of breast in female, estrogen receptor positive (HCC) 03/10/2023 12/13/19 Hem/Onc note "Planning for total 5 years of anastrozole in her case which she will completein January 2020. Now she has done well for the 5 years, no evidence of recurrent disease, there is no need for oncology follow-up." 09/22/23 Int Med note "history of bilateral breast cancer, status post completion of the treatment" Breast cancer in female (HCC) Carcinoma in situ of breast 01/08/2015 12/13/19 Hem/Onc note "Planning for total 5 years of anastrozole in her case which she will completein January 2020. 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 Now she has done well for the 5 years, no evidence of recurrent disease, there is no need for oncology follow-up." 09/22/23 Int Med note "history of bilateral breast cancer, status post completion of the treatment" INFORMATION Gout INFORMATION 02/15/2015 02/15/2015 right breast , repair of open wound - office procedure -= Dr. Tonya Sutherland Kidney tumor "do not know if benign or malignant at this point" Osteoarthrosis Osteoarthritis Traumatic amputation of toe (HCC) 194 Amputation big toe left foot traumatic Venous insufficiency Venous Insufficiency Social History Socioeconomic History Marital status: Spouse name: Timmy Number of children: 5 Occupational History Employer: [employer] Tobacco Use Smoking status: Never Smokeless tobacco: Never Vaping Use Vaping status: Never Used Substance and Sexual Activity Alcohol use: Yes Comment: rare Drug use: No Sexual activity: Yes Partners: Male control/protection: Surgical Other Topics Concern Service No Blood Transfusions Yes Caffeine Concern No Seat Belt Yes Self-Exams Yes Social Determinants of Health Food Insecurity: No Food Insecurity (11/01/2020) Hunger Vital Sign Worried About Running Out of Food in the Last Year: Never true Ran Out of Food in the Last Year: Never true Social Connections Family History Problem Relation Name Age of Onset Heart Disorder Father [place] age 53 Neurological Disorder Mother Accident age 20 Hypertension Sister Heart Disorder Brother [place] age 53 No Past Hx Sister Thyroid Disorder Granddaughter thyroid cancer Lymphoma Grandson non hodgkins lymphoma All system negative except as per hpi. OBJECTIVE: BP 132/80 | Pulse 78 | Temp 35.9 C (96.7 F) | Resp 18 PHYSICAL EXAM: HEENT: PERRLA, EOMI, anicteric sclera, b/l tympanic membrane is pearly white, no erythema, no pharyngeal erythema, no lymphadenopathy, neck supple CVS: RRR, no murmurs, rubs or gallops, s1 s 2normal. RESP: clear to auscultation, no wheezing or crackles ABD: soft, NT/ND EXT: no edema, cyanosis, peripheral pulses palpable bilaterally No large joint swelling, no redness, range of motion normal. Skin dry Gait normal. Mood stable No focal weakness ASSESSMENT AND PLAN: Type 2 diabetes mellitus with hemoglobin A1c goal of less than 7.0% ([facility]) (Primary) - ALBUMIN / CREATININE RATIO, URINE; Future; Expected date: 03/30/2024 - HEMOGLOBIN A1C; Future; Expected date: 03/30/2024 On glipizide 5 mg twice daily. No hypoglycemia. 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 Body mass index (BMI) 45.0-49.9, adult (HCC) Continue diet. HTN, goal below 140/90 Slightly high. Chronic kidney disease, stage 4 (severe) (HCC) Avoid nsaids. Continue low salt and hydration. 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 DYSLIPIDEMIA, GOAL LDL BELOW 100 On statin. Angeli Lee MD documented in this encounter Nursing Notes * Cat Peñaloza LPN - 03/30/2024 10:13 AM EDT The patient has been properly identified by confirmation of name and date of . Chief Complaint Patient presents with Follow Up documented in this encounter Miscellaneous Notes * Addendum Note - Angeli Lee MD - 03/30/2024 10:59 AM EDTAddended by: ANGELI LEE on: 03/30/2024 10:59 AM Modules accepted: Orders documented in this encounter Plan of Treatment Upcoming Encounters Date Type Department Care Team (Late st Contact Info) Description 04/25/2024 7:00 AM EST Laboratory Lab Mobile Phlebotomy [facility] [address] [place] [address] [facility] Home Draw [address] [place] [id number] 04/26/2024 6:00 AM EST Anticoagulation [facility], Moe Mohamud [address] [place] [address] [place] [address] [facility] [place] [address] 05/27/2024 2:20 PM EST Office Visit Nephrology, [address] [place] [address] Levy Garcia MD [address] [facility] [address] [place], [place] [address] 06/06/2024 10:15 AM EST Office Visit Ophthalmology, [facility] [address] [place] [address] Kodi Souza DO [address] [place] [address] 09/02/2024 10:00 AM EDT Office Visit Cardiology, [facility] [address] [facility] [address] Dasia Cohen CRNP [address] [place] [address] 09/29/2024 9:20 AM EDT Office Visit General Internal Medicine [facility] [address] [facility] [place], [place] [address] Angeli Lee MD 200 [facility] [place], [place] [address] Scheduled Orders Name Type Priority Associated Diagnoses Orde r Schedule ALBUMIN / CREATININE RATIO, URINE Lab Routine Type 2 diabetes mellitus with hemoglobin A1c goal of less than 7.0% ([facility]) Expected: 03/30/2024 (Approximate), Expires: 03/30/2025 Health Maintenance Due Date Last Done Comments Adult Wellness Visit 06/07/2020 06/07/2019 Depression Screening 11/01/2021 11/01/2020 Albumin/Creatinine Ratio 08/29/2023 023, 08/20/2021, 10/28/2018, Additional history exists Diabetic Foot Exam 12/19/2023 12/18/2022, 0 11/01/2020, 11/04/2018, Additional history exists COVID-19 Vaccine ( season) 2024 03/11/2024, 04/07/2023, 11/25/2021, Additional history exists Nephrology Referral 09/07/2024 09/08/2023, 1 DIG LEVEL FOR MEDICATION MONITORING YEARLY 09/16/2024 09/17/2023, 12/18/2022, 11/04/2021, Additional history exists Hgb 09/16/2024 09/17/2023, 10/30, 09/17/2022, Additional history exists PTH 09/16/2024 09/17/2023, 08/30, 11/04/2018, Additional history exists Phosphate 09/16/2024 09/17/2023, 08/30, 05/09/2021, Additional history exists HbA1c 09/28/2024 03/30/2024, 08/30, 12/31/2022, Additional history exists Diabetic Eye Exam 11/01/2024 11/02/2023, , 01/27/2023, Additional history exists DTap/Tdap Vaccines (6 - [...] this encounter Medical Devices Implanted Type Area Preparation Plant Repairer Device Identifier Shelf Expiration Date Model / Serial / Lot Lens Intraoc 25.5 - [id number] - [id number] Implanted:Qty: 1 on 09/03/2021 by Jeffrey Rodriguez MD at [facility] Left: Eye [employer] 09/28/2025 [id number] / [id number] / [id number] Lens Intraoc 24.5 - [id number] - [id number] Implanted:Qty: 1 on 09/17/2021 by Jeffrey Rodriguez MD at [facility] Right: Eye [employer] 10/29/2025 [id number] / [id number] / [id number] documented as of this encounter Procedures Procedure Name Priority Date/Time Associated Diagnosis Comments HEMOGLOBIN A1C, POINT OF CARE Routine 03/30/2024 11:08 AM EDT Type 2 diabetes mellitus with hemoglobin A1c goal of less than 7.0% (HCC) documented in this encounter Results * HEMOGLOBIN A1C, POINT OF CARE (03/30/2024 11:08 AM EDT) Hemoglobin A1c 4.9 4.0 - 5.6 % 03/30/2024 11:44 AM EDT [facility] 56-02 Blood 03/30/2024 11:0 8 AM EDT 03/30/2024 11:44 AM EDT Angeli Lee MD LAB POINT OF CAR E TEST DOCKED DEVICE UNSOLICITED RESULTS Final Result [facility] 56-02 [address] [place] [address] documented in this encounter Visit Diagnoses Diagnosis Type 2 diabetes mellitus with hemoglobin A1c goal of less than 7.0% (HCC)- Primary 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
--- OUTSIDE RECORDS SUMMARY | 2024-05-21 10:46 | External Medical Summary | Summary of Care ---
Author Name Unknown Organization [facility] Address [address] [place] [place] [address] Phone [phone] Care Team Providers Care Religious Educator Name Role Phone Angeli Lee MD Primary Care Provider + Reason for Visit * Reason Onset Date Comments Medication Refill 05/16/2024 Encounter Details Date Type Department Care Team (Late st Contact Info) Description 05/16/2024 [facility]ill [facility] [address] [place], [place] [address] Angeli Lee MD [address] [place] [address] Gouty arthropathy; Type 2 diabetes mellitus with hemoglobin A1c goal of less than 7.0% ([facility]) Allergies No known active allergiesdocumented as of this encounter (statuses as of 05/17/2024) Medications GLUCOMETER ELITE CLASSIC KITIndications:D M type 2, goal A1c below 7 check sugar 2-3 times a week. one 0 06/16/19 08 Active FREESTYLE LITE STRPIndications: DM type 2, goal A1c below 7 check sugars tid 1 11 12/01/19 08 Active FREESTYLE LANCETS MISCIndications: DM type 2, goal A1c below 7 check blood sugars 3 times daily 1 box 11 04/17/20 08 Active ASPIRIN 81 MG PO TBEC Take by mouth at bedtime . Active Cholecalciferol (VITAMIN D3) 69017 units TABS Take 1 Tab by mouth [...] Take 2 Tablets by mouth at bedtime. 11/17/19 23 Active PreserVision AREDS Oral Capsule Take 1 Capsule by mouth in the morning and 1 Capsule in the evening. 11/17/19 23 Active DIURETIC TITRATION PLANIndications: Edema, unspecified type If no improvement on day 3, contact heart failure managing provider. 1 Each 01/31/20 23 Active Warfarin Sodium 5 MG Oral Tablet (Coumadin)Indica tions:HTN, goal below 140/80,Persisten t atrial fibrillation (HCC),High triglycerides,At rial fibrillation (HCC),Dyslipidem ia, goal LDL below 100 Take 1 Tablet by mouth every evening. 90 Tablet 3 06/29/19 24 Active Pravastatin Sodium 40 MG Oral Tablet (Pravachol)Indic ations:High triglycerides,Dy slipidemia, goal LDL below 100 Take 1 Tablet by mouth at bedtime. 90 Tablet 3 08/05/19 24 Active Lisinopril 10 MG Oral Tablet (Prinivil)Indica tions:HTN, goal below 140/80 TAKE 1 TABLET BY MOUTH IN THE MORNING 90 Tablet 3 09/03/19 24 Active Nystatin 588045 UNIT/GM External Powder (Nystop) APPLY TOPICALLY TO AFFECTED AREA 3 TIMES A DAY. APPLY FOR ABDOMINAL FOLDS TWICE A DAY NEEDED 60 g 3 01/07/20 24 Active Fenofibrate 48 MG Oral Tablet (Tricor)Indicati ons:Dyslipidemia , goal LDL below 100 Take 1 Tablet by mouth in the morning. 30 Tablet 5 02/24/20 24 Active Metoprolol Succinate ER 50 MG Oral Tablet Extended Release 24 Hour (toPROL XL)Indications:C hronic atrial fibrillation (HCC),HTN, goal below 140/90 TAKE ONE TABLET BY MOUTH IN THE MORNING 90 Tablet 1 03/30/20 24 Active Digoxin 125 MCG Oral Tablet (Lanoxin) Take 1 Tablet by mouth in the morning. Take three times a week on Thursday, and Thursday. 36 Tablet 04/11/20 24 Active Furosemide 40 MG Oral Tablet (Lasix)Indicatio ns:HTN, goal below 140/80,Persisten t atrial fibrillation (HCC),High triglycerides,At rial fibrillation (HCC),Dyslipidem ia, goal LDL below 100 TAKE 1 TABLET BY MOUTH IN THE MORNING 90 Tablet 3 04/29/20 24 Active Allopurinol 300 MG Oral Tablet (Zyloprim)Indica tions:Gouty arthropathy,Type 2 diabetes mellitus with hemoglobin A1c goal of less than 7.0% (HCC) Take 1 Tablet by mouth in the morning. In the morning.. 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 1 07/17/2002 Anticoagulation management encounter 11/24/2001 Atrial fibrillation 05/26/2001 documented as of this encounter (statuses as of 05/17/2024) Resolved Problems Problem Noted Date Diagnosed Date [...] as of this encounter (statuses as of 05/17/2024) Immunizations Name Administration Dates Next Due COVID-19 mRNA, LNP-s, No Pre serve, 2-Dose Series (Vivint) 11/25/2021,05/14/2021,07/28/2020,10/2020 COVID-19, LNP-s, No Preserve , Joseph-sucrose, Ages 12+ (Vivint) 11/25/2021 COVID-19, MRNA-LNP, 24-25, P R, 30MCG/0.3ML, IM, 12YRS AND ABOVE (Cap ThatirAspen Evian) 03/11/2024 COVID-19, MRNA-LNP, PF, 30 M CG/0.3 mL, 12 YRS AND ABOVE, IM (Digital Dandelion) 04/07/2023 DTaP Dipth/Tet/Acell Pertussis (Infanrix), Peds 10/31/2003 PPD 11/28/2022,11/19/2022 Pneumococcal Conjugate Vacc, 13 Valent (Prevnar) 12/24/2014 Pneumococcal Polysaccharide PPV23 (Pneumovax) 12/24/2014 RSV Vac., Bivalent, Perfusio n F, Pf,0.5 Ml (Abrysvo) 04/21/2023 Season Influenza, Quad, PF, Adjuvanted, 65+ Yrs, IM (FLUAD) 02/08/2020 Seasonal Influenza Vac., MDV , IM, 0.5 mL (Fluzone) 02/16/2014,03/17/2013,03/05/2012,01/31,03/19/2010,03/07/2009,03/15/20 08,03/16/2007,03/25/2006 03/07/2010 Seasonal Influenza Virus Vac cine, Unspecified Formulation 02/08/2020,03/03/2019,04/06/2018,110 11/2016,02/14/2016,03/15/2015,02/17/20 14,03/17/2013,03/05/2012,02/27/2011,1 ,03/07/2009,03/15/2008,03/16,03/25/2006,03/31/2005, 4,04/13/2003,05/21/2000 Seasonal Influenza, High Dos [...] encounter Miscellaneous Notes * Telephone Encounter - Hakeem Fraser [facility] - 05/17/2024 2:21 PM EST Signed Prescriptions: Disp Refills Allopurinol 300 MG Oral Tablet (Zyloprim) 90 Tab*1 Sig: Take 1 Tablet by mouth in the morning. In the morning..Authorizing Provider: ANGELI LEE User: HAKEEM FRASER * Telephone Encounter - Aurora Redd greenkeeper - 05/16/2024 3:42 PM EST Did you pend patient's preferred pharmacy and medication before forwarding?yes Pharmacy: [facility] Pending Prescriptions: Disp Refills Allopurinol 300 MG Oral Tablet (Zyloprim) 90 Tab*2 Sig: Take 1 Tablet by mouth. In the morning. Last Visit: 03/30/2024 (in office), Visit date not found (telemedicine) Next Visit: 09/29/2024 If no future appointments scheduled, and last appointment is greater than a year ago, please schedule patient for a follow-up appointment Last date the medication was ordered: 07/28/23 Is this request for a controlled substance?No Urine Drug Screen:No results found. However, due to the size of the patient record, not all encounters were searched. Please check Results Review for a complete set of results. Patient Phone Numbers Labs: Lab Results Component Value Date/Time CREAT 1.9 (H) 10/22/2023 11:53 AM CREAT 1.0 05/03/2020 10:41 AM POTASSIUM 5.2 (H) 10/22/2023 11:53 AM POTASSIUM 4.4 05/03/2020 10:41 AM POTASSIUM 4.9 08/20/1996 09:35 AM TSH 2.88 10/28/2018 11:14 AM LDL 29 09/17/2023 07:26 AM LDL 64 04/08/2022 07:12 AM LDL 62 10/18/2019 11:31 AM LDL UNINTERPRETABLE RESULT 10/28/2018 11:14 AM LDL 79. 08/20/1996 09:35 AM ALT 26 09/17/2023 07:26 AM ALT 12 12/13/2019 03:32 PM HGBA1C 4.9 03/30/2024 11:08 AM HGBA1C 6.9 (H) 05/03/2020 10:41 AM documented in this encounter Plan of Treatment Upcoming Encounters Date Type Department Care Team (Late st Contact Info) Description 05/23/2024 7:20 AM EST Laboratory Lab Mobile Phlebotomy [facility] [address] [facility] [place] [address] Mvmg, Gml Mobile Home Draw [address] [facility] [place] [address] 05/24/2024 6:00 AM EST Anticoagulation [facility], Moe Mohamud [address] [place] [address] [place] [address] [place] [address] 05/27/2024 2:20 PM EST Office Visit Nephrology, Yadira Hassan [address] [place] [address] Levy Garcia MD [address] [facility] [place] [address] 06/06/2024 10:15 AM EST Office Visit Ophthalmology, [facility] [address] [place] [address] Kodi Souza, DO [address] [place] [address] 09/02/2024 10:00 AM EDT Office Visit Cardiology, [facility] [address] [place] [address] Dasia Cohen CRNP [address] [place] [address] 09/29/2024 9:20 AM EDT Office Visit General Internal Medicine [facility] [address] [facility] [place] [address] Angeli Lee MD [address] [facility] [place] [address] Scheduled Orders Name Type Priority Associated Diagnoses Orde r Schedule COMPREHENSIVE METABOLIC PANEL Lab Routine Gouty arthropathy Expected: 05/31/2024 (Approximate), Expires: 05/17/2025 URIC ACID Lab Routine Gouty arthropathy Expected: 05/24/2024 (Approximate), Expires: 05/24/2025 LIPID PANEL WITH DIRECT LDL IF TG IS HIGH Lab Routine Type 2 diabetes mellitus with hemoglobin A1c goal of less than 7.0% (HCC) Expected: 05/24/2024 (Approximate), Expires: 05/24/2025 Health Maintenance Due Date Last Done Comments Adult Wellness Visit 06/07/2020 06/07/2019 Depression Screening 11/01/2021 11/01/2020 Albumin/Creatinine Ratio 08/29/20232 023, 08/20/2021, 10/28/2018, Additional history exists Diabetic [...] this encounter Medical Devices Implanted Type Area Chemistry Instructor Device Identifier Shelf Expiration Date Model / Serial / Lot Lens Intraoc 25.5 - [id number] - [id number] Implanted:Qty: 1 on 09/03/2021 by Jeffrey Rodriguez MD at OR [facility] Left: Eye [employer]USCH [employer] LOMB 09/28/2025 [id number] / [id number] / [id number] Lens Intraoc 24.5 - [id number] - [id number] Implanted:Qty: 1 on 09/17/2021 by Jeffrey Rodriguez MD at OR [facility] Right: Eye BAUSCH [employer] LOMB 10/29/2025 [id number] / [id number] / [id number] documented as of this encounter Visit Diagnoses Diagnosis Gouty arthropathy Gouty arthropathy, unspecified Type 2 diabetes mellitus with hemoglobin A1c goal of less than 7.0% (HCC) documented in this encounter Care Teams Religious Educator Relationship Specialty Start Date End Date Angeli Lee MD [address] [place] [address] PCP - General 11/02/08 documented as of this encounter
--- OUTSIDE RECORDS SUMMARY | 2024-05-21 10:46 | External Medical Summary | Summary of Care ---
Author Name Unknown Organization [facility] Address [address] [facility] [address] Phone [phone] Care Team Providers Care Concrete Layer Name Role Phone Angeli Lee MD Primary Care Provider + Reason for Visit * Reason Onset Date Comments Medication Refill 04/11/2024 Encounter Details Date Type Department Care Team (Late st Contact Info) Description 04/11/2024 Refill Cardiology, [facility] [address] [facility] [place] [address] Dhaval Gonsales MD [address] [facility] [place] [address] Chronic atrial fibrillation (HCC)*; Encounter for long-term (current) use of medications Allergies No known active allergiesdocumented as of this encounter (statuses as of 04/26/2024) Medications GLUCOMETER ELITE CLASSIC KITIndications:D M type [...] at bedtime . Active Cholecalciferol (VITAMIN D3) 13981 units TABS Take 1 Tab by mouth [...] evening. 90 Tablet 3 06/29/19 24 Active Furosemide 40 MG Oral Tablet (Lasix)Indicatio ns:HTN, goal below 140/80,Persisten t atrial fibrillation (HCC),High triglycerides,At rial fibrillation (HCC),Dyslipidem ia, goal LDL below 100 TAKE 1 TABLET BY MOUTH IN THE MORNING 90 Tablet 3 07/28/19 24 Active Allopurinol 300 MG Oral Tablet (Zyloprim)Indica tions:Gouty arthropathy,Type 2 diabetes mellitus with hemoglobin A1c goal of less than 7.0% (HCC) TAKE 1 TABLET BY MOUTH IN THE MORNING 90 Tablet 2 07/28/19 24 Active Pravastatin Sodium 40 MG Oral Tablet (Pravachol)Indic ations:High triglycerides,Dy slipidemia, goal LDL below 100 Take 1 Tablet by mouth at bedtime. 90 Tablet 3 08/05/19 24 Active dilTIAZem HCl ER Coated Beads 120 MG Oral Capsule Extended Release 24 Hour (Cardizem CD)Indications:P ersistent atrial fibrillation (HCC) TAKE 1 CAPSULE IN THE MORNING 90 Capsule 3 08/05/19 24 Active Lisinopril 10 MG Oral Tablet (Prinivil)Indica tions:HTN, goal below 140/80 TAKE 1 TABLET BY MOUTH IN THE MORNING 90 Tablet 3 09/03/19 24 Active Nystatin 358858 UNIT/GM External Powder (Nystop) APPLY TOPICALLY TO [...] and Thursday. 36 Tablet 04/11/20 24 Active Digoxin 125 MCG Oral Tablet (Lanoxin) Take 1 Tablet by mouth in the morning. 34 Tablet 11 01/01/20 23 024 Discontin ued(Refil l) glipiZIDE 5 MG Oral Tablet (Glucotrol) TAKE 1 TABLET EVERY MORNING AND 1 TABLET BEFORE BEDTIME (TAKE 30 MINUTES BEFORE MEALS). 180 Tablet 1 11/10/19 24 024 Discontin ued(Medic ation/Dos e Changed) Hospital, Clinic, or Other Facility Administered Medication Ordered Dose Route Frequency Start Date End Date Status Faricimab-svoa (Vabyo) intravitreal inj 6 mgIndications:Exudative age-related macular degeneration of left eye with active choroidal neovascularization (HCC) 6 mg IZ PRN 06/30/2023 06/29/2024 Active ROPivacaine (Naropin) inj 1.5 mgIndications:Exudative age-related macular degeneration of left eye with active choroidal neovascularization (HCC) 1.5 mg IJ PRN 06/30/2023 06/29/2024 Active documented as of this encounter (statuses as of 04/26/2024) Active Problems Problem Noted Date Diagnosed Date [...] arthropathy 03/15/2009 Overview (03/15/2009): ICD-9 Code 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 1 07/17/2002 Anticoagulation management encounter 11/24/2001 Atrial fibrillation 05/26/2001 documented as of this encounter (statuses as of 04/26/2024) Resolved Problems Problem Noted Date Diagnosed Date [...] as of this encounter (statuses as of 04/26/2024) Immunizations Name Administration Dates Next Due COVID-19 mRNA, LNP-s, No Pre serve, 2-Dose Series (Mistral Solutions) 11/25/2021,05/14/2021,07/28/2020,10/2020 COVID-19, LNP-s, No Preserve , Joseph-sucrose, Ages 12+ (Mistral Solutions) 11/25/2021 COVID-19, MRNA-LNP, 24-25, P R, 30MCG/0.3ML, IM, 12YRS AND ABOVE (G2LinkirnatDishcrawl) 03/11/2024 COVID-19, MRNA-LNP, PF, 30 M CG/0.3 mL, 12 YRS AND ABOVE, IM (Tweet Category) 04/07/2023 DTaP Dipth/Tet/Acell Pertussis (Infanrix), Peds 10/31/2003 [...] encounter Miscellaneous Notes * Telephone Encounter - Zulay Mcmahon PHARM Tech - 04/13/2024 4:45 PM EST Received message from [facility] regarding patient needing labs. Call Placed by [facility] Doctor Evidence. Thank you, Zulay Mcmahon [facility] Cooling Pan Tender II [facility]) 04/13/2024,4:45 PM * Telephone Encounter - Arturo Lau RPh - 04/11/2024 9:45 AM ESTSigned Prescriptions: Disp Refills Digoxin 125 MCG Oral Tablet (Lanoxin) 36 Tab*0 Sig: Take 1 Tablet by mouth in the morning. Take three times a week on Thursday, and Thursday. Authorizing Provider: DASIA QUIGLEY Ordering User: ARTURO LAU * Telephone Encounter - Arturo Lau RPh - 04/11/2024 9:36 AM EST Digoxin was decreased to 1 tablet 3 times a week on 12/31/2022. Provided 90 days supply with 0 refill(s). Per refill protocol patient should have digoxin level andmagnesium on file within past 6 months. Reviewed AMP report, Care Gaps/Health Maintenance, medications list, and for any routine labs typically ordered for this patient. Lab orders placed. Please contact patient to advise of labs ordered for blood draw. Fasting is not required. Advise toobtain labs before requesting the next refill. Thanks, Arturo Lau PharmD Clinical Pharmacist [facility] ([facility]) 04/11/2024, 9:44 AM * Telephone Encounter - Fátima Jolley PHARM Tech - 04/11/2024 9:26 AM EST Patient is up to date for office visits. Pending Prescriptions: Disp Refills Digoxin 125 MCG Oral Tablet (Lanoxin) 34 Tab*11 Sig: Take 1 Tablet by mouth in the morning. Last Visit: 02/19/2024 (in office), Visit date not found (telemedicine) Next Visit: 09/02/2024 If no future appointments scheduled, and last appointment is greater than a year ago, please schedule patient for a follow-up appointment Last date the medication was ordered: 12/31/22 Pharmacy: [facility] [address] Is this request for a controlled substance?No it is not controlled. Urine Drug Screen:No results found. However, due [...] Care Team (Late st Contact Info) Description 05/27/2024 2:20 PM EST Office Visit Nephrology, Yadira Hassan [address] [place] [address] Levy Garcia MD [address] [place] [address] 06/06/2024 10:15 AM EST Office Visit Ophthalmology, [facility] [address] [place] [address] Kodi Souza DO [address] [place] [address] 09/02/2024 10:00 AM EDT Office Visit Cardiology, [facility] [address] [place] [address] Dasia Quigley CRNP [address] [place] [address] 09/29/2024 9:20 AM EDT Office Visit [facility] [place] [address] [place] [address] Angeli Lee MD [address] [facility] [place] [address] Health Maintenance Due Date Last Done Comments [...] this encounter Medical Devices Implanted Type Area Learning Designer Device Identifier Shelf Expiration Date Model / Serial / Lot Lens Intraoc 25.5 - [id number] - [id number] Implanted:Qty: 1 on 09/03/2021 by Jeffrey Rodriguez MD at OR [facility] Left: Eye BAUSCH [employer] LOMB 09/28/2025 [id number] / [id number] / [id number] Lens Intraoc 24.5 - [id number] - [id number] Implanted:Qty: 1 on 09/17/2021 by Jeffrey Rodriguez MD at OR [facility] Right: Eye BAUSCH & LOMB 10/29/2025 [id number] / [id number] / [id number] documented as of this encounter Results * MAGNESIUM (04/25/2024 7:41 AM EST) Pathologist [facility] Magnesium 2.2 1.5 - 2.6 mg/dL 04/25/2024 9:19 PM EST [facility] [place] Venipuncture / Unknown 04/25/2024 7:41 AM EST 04/25/2024 11:21 AM EST [facility] LAB BLOOD ORDERABLES Final Res ult LABORATORY [address] [address] * DIGOXIN LEVEL (04/25/2024 7:41 AM EST) [facility] [address] Digoxin Level 0.7 0.5 - 1.1 ng/mL 04/25/2024 9:19 PM EST [facility] [place] Venipuncture / Unknown 04/25/2024 7:41 AM EST 04/25/2024 11:21 AM EST Narrative [facility] - 04/25/2024 9:19 PM EST Recommended trough therapeutic ranges: 0.5 to 0.8 for heart failure 0.5 to 1.1 for atrial fibrillation [facility] LAB BLOOD ORDERABLES Final Res ult LABORATORY [place] [address] [facility] [place] [address] documented in this encounter Visit Diagnoses Diagnosis Chronic atrial fibrillation (HCC)- Primary Atrial fibrillation Encounter for long-term (current) use of medications Encounter for long-term (current) use of other medications documented in this encounter Care Teams Concrete Layer Relationship Specialty Start Date End Date Angeli Lee MD [address] [place] [address] PCP - General 11/02/08 documented as of this encounter
--- OUTSIDE RECORDS SUMMARY | 2024-05-21 10:46 | External Medical Summary ---
Author Name Unknown Address Unknown Organization [id number]:LABORATORY C - [address] [place] [address] Laboratory Report Ordering Provider Test Date Status ARTUROSATINDERDONALD 04/25/2024 07:41:00 Final Observation Date Value Abnormality Reference (Units ) Status Magnesium 04/25/2024 07:41:00 2.2 1.5-2.6 (m g/dL) Final Performing Location LAB[facility]ORY [facility] - [address] [place] [address]
--- OUTSIDE RECORDS SUMMARY | 2024-05-21 10:46 | External Medical Summary | Summary of Care ---
Author Name Unknown Organization [facility] Address [address] [facility] [place] [address] Phone [phone] Care Team Providers Care Sander Operator Name Role Phone Angeli Lee MD Primary Care Provider + Reason for Visit * Reason Comments eRx-Medication Refill Encounter Details Date Type Department Care Team (Late st Contact Info) Description 05/13/2024 Refill Cardiology, [facility] [address] [facility] [place] [address] Leeann Roach PA-C [address] [place] [address] Persistent atrial fibrillation (HCC) Allergies No known active allergiesdocumented as of this encounter (statuses as of 05/17/2024) Medications GLUCOMETER ELITE CLASSIC KITIndications: DM type 2, goal A1c below 7 check sugar 2-3 times a week. one 0 06/16/19 08 Active FREESTYLE LITE STRPIndications :DM type 2, goal A1c below 7 check sugars tid 1 11 12/01/19 08 Active FREESTYLE LANCETS MISCIndications :DM type 2, goal A1c below 7 check blood sugars 3 times daily 1 box 11 04/17/20 08 Active ASPIRIN 81 MG PO TBEC Take by mouth at bedtime . Active Cholecalciferol (VITAMIN D3) 05733 units TABS Take 1 Tab by mouth every evening. Active Cyanocobalamin (VITAMIN B12) 1000 MCG TBCR Take by mouth at bedtime . Active Misc Natural Products (APPLE CIDER VINEGAR DIET) TABS Take by mouth. Acti ve Apple Cider Vinegar 500 MG Oral Tablet Take by mouth 1 Tablet daily with dinner . Active diphenhydrAMINE -APAP (sleep) 25-500 MG Oral Tablet Take 2 Tablets by mouth at bedtime. 11/17/19 Active PreserVision AREDS Oral Capsule Take 1 Capsule by mouth in the morning and 1 Capsule in the evening. 11/17/19 Active DIURETIC TITRATION PLANIndications :Edema, unspecified type If no improvement on day 3, contact heart failure managing provider. 1 Each 01/31/20 23 Active Warfarin Sodium 5 MG Oral Tablet (Coumadin)Indic ations:HTN, goal below 140/80,Persiste nt atrial fibrillation (HCC),High triglycerides,A trial fibrillation (HCC),Dyslipide christopher, goal LDL below 100 Take 1 Tablet by mouth every evening. 90 Tablet 3 06/29/19 24 Active Allopurinol 300 MG Oral Tablet (Zyloprim)Indic ations:Gouty arthropathy,Typ e 2 diabetes mellitus with hemoglobin A1c goal of less than 7.0% (HCC) TAKE 1 TABLET BY MOUTH IN THE MORNING 90 Tablet 2 07/28/19 24 Active Pravastatin Sodium 40 MG Oral Tablet (Pravachol)Michelle cations:High triglycerides,D yslipidemia, goal LDL below 100 Take 1 Tablet by mouth at bedtime. 90 Tablet 3 08/05/19 24 Active Lisinopril 10 MG Oral Tablet (Prinivil)Indic ations:HTN, goal below 140/80 TAKE 1 TABLET BY MOUTH IN THE MORNING 90 Tablet 3 09/03/19 24 Active Nystatin 687157 UNIT/GM External Powder (Nystop) APPLY TOPICALLY TO AFFECTED AREA 3 TIMES A DAY. APPLY FOR ABDOMINAL FOLDS TWICE A DAY NEEDED 60 g 3 01/07/20 24 Active Fenofibrate 48 MG Oral Tablet (Tricor)Indicat ions:Dyslipidem ia, goal LDL below 100 Take 1 Tablet by mouth in the morning. 30 Tablet 5 02/24/20 24 Active Metoprolol Succinate ER 50 MG Oral Tablet Extended Release 24 Hour (toPROL XL)Indications: Chronic atrial fibrillation (HCC),HTN, goal below 140/90 TAKE ONE TABLET BY MOUTH IN THE MORNING 90 Tablet 1 03/30/20 24 Active Digoxin 125 MCG Oral Tablet (Lanoxin) Take 1 Tablet by mouth in the morning. Take three times a week on Thursday, and Thursday. 36 Tablet 04/11/20 24 Active Furosemide 40 MG Oral Tablet (Lasix)Indicati ons:HTN, goal below 140/80,Persiste nt atrial fibrillation (HCC),High triglycerides,A trial fibrillation (HCC),Dyslipide christopher, goal LDL below 100 TAKE 1 TABLET BY MOUTH IN THE MORNING 90 Tablet 3 04/29/20 24 Active dilTIAZem HCl ER Coated Beads 120 MG Oral Capsule Extended Release 24 Hour (Cardizem CD)Indications: Persistent atrial fibrillation (HCC) TAKE 1 CAPSULE IN THE MORNING 90 Capsule 3 05/17/20 24 Active dilTIAZem HCl ER Coated Beads 120 MG Oral Capsule Extended Release 24 Hour (Cardizem CD)Indications: Persistent atrial fibrillation (HCC) TAKE 1 CAPSULE IN THE MORNING 90 Capsule 3 08/05/19 24 024 Discontinued Hospital, Clinic, or Other Facility Administered [...] 03/15/2009 Overview (03/15/2009): 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) 03/11/2024 COVID-19, MRNA-LNP, PF, 30 M CG/0.3 mL, 12 YRS AND ABOVE, IM ([employer]) 04/07/2023 DTaP Dipth/Tet/Acell Pertussis (Infanrix), Peds 10/31/2003 [...] encounter Miscellaneous Notes * Telephone Encounter - Dasia Quigley CRNP - 05/17/2024 5:36 AM EST Signed Prescriptions: Disp Refills dilTIAZem HCl ER Coated Beads 120 MG Oral *90 Cap*3 Sig: TAKE 1 CAPSULE IN THE MORNING Authorizing Provider: DASIA QUIGLEY * Telephone Encounter - Ai Koroma RPh - 05/16/2024 1:44 PM ESTPending Prescriptions: Disp Refills dilTIAZem HCl ER Coated Beads 120 MG Oral *90 Cap*3 Sig: TAKE 1 CAPSULE IN THE MORNING * Telephone Encounter - Ai Koroma RPh - 05/16/2024 1:43 PM EST Unable to authorize medication refills for pended medication(s) at this time. Part of the protocol criteria used for refill authorization was not satisfied. CHF is present on problem list. Please approve if appropriate. Thanks, Ai Koroma, PharmD Clinical Pharmacist [facility] Services ([facility]) 05/16/2024, 1:44 PM documented in this encounter Plan of Treatment Upcoming Encounters Date Type Department Care Team (Late st Contact Info) Description 05/23/2024 7:20 AM EST Laboratory Lab Mobile Phlebotomy [facility] [address] [place] [address] M[facility], Gml Mobile Home Draw [address] [place] [address] 05/24/2024 6:00 AM EST Anticoagulation [facility], Meo Mohamud [address] [place] [address] [place] [address] [facility], [address] [place] [address] 05/27/2024 2:20 PM EST Office Visit Nephrology, [facility] [address] [place] [address] Levy Garcia MD [facility] [place] [address] 06/06/2024 10:15 AM EST Office Visit Ophthalmology, [facility] [address] [facility] [place] [address] Kodi Souza DO [address] [place] [address] 09/02/2024 10:00 AM EDT Office Visit Cardiology, [facility] [address] [place] [address] Dasia Quigley CRNP [address] [place] [address] 09/29/2024 9:20 AM EDT Office Visit [facility] [place] [address] [place] [address] Angeli Lee MD [address] [place] [address] Health Maintenance Due Date Last Done Comments [...] this encounter Medical Devices Implanted Type Area Stringer Up Soldering Machine Device Identifier Shelf Expiration Date Model / Serial / Lot Lens Intraoc 25.5 - [id number] - [id number] Implanted:Qty: 1 on 09/03/2021 by Jeffrey Rodriguez MD at OR [facility] Left: Eye [employer]OMB 09/28/2025 [id number] / [id number] / [id number] Lens Intraoc 24.5 - [id number] - [id number] Implanted:Qty: 1 on 09/17/2021 by Jeffrey Rodriguez MD at OR [facility] Right: Eye [employer]OM[employer] 10/29/2025 [id number] / [id number] / [id number] documented as of this encounter Visit Diagnoses Diagnosis Persistent atrial fibrillation (HCC) Atrial fibrillation documented in this encounter Care Teams Sander Operator Relationship Specialty Start Date End Date Angeli Lee MD 200 [facility] [place] [address] PCP - General 11/02/08 documented as of this encounter
--- OUTSIDE RECORDS SUMMARY | 2024-05-21 10:46 | External Medical Summary | Summary of Care ---
Author Name Unknown Organization [facility] Address [address] [facility] [address] Phone [phone] Care Team Providers Care Vegetable Farmer Name Role Phone Angeli Lee MD Primary Care Provider + Reason for Visit * Reason Onset Date Comments Test Results Lab 04/25/2024 Encounter Details Date Type Department Care Team (Late st Contact Info) Description 04/25/2024 Telephone General Internal Medicine [facility] [place] [address] Angeli Lee MD 200 [facility] [place] [address] Test Results Lab Allergies No known active allergiesdocumented as of this encounter (statuses as of 04/25/2024) Medications GLUCOMETER ELITE CLASSIC KITIndications:D M type [...] at bedtime . Active Cholecalciferol (VITAMIN D3) 72656 units TABS Take 1 Tab by mouth [...] 90 Tablet 3 09/03/19 24 Active Nystatin 759153 UNIT/GM External Powder (Nystop) APPLY TOPICALLY TO [...] and Thursday. 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 1 07/17/2002 Anticoagulation management encounter 11/24/2001 Atrial fibrillation 05/26/2001 documented as of this encounter (statuses as of 04/25/2024) Resolved Problems Problem Noted Date Diagnosed Date [...] as of this encounter (statuses as of 04/25/2024) Immunizations Name Administration Dates Next Due COVID-19 mRNA, LNP-s, No Pre serve, 2-Dose Series ([employer]) 11/25/2021,05/14/2021,07/28/2020,10/2020 COVID-19, LNP-s, No Preserve , Joseph-sucrose, Ages 12+ ([employer]) 11/25/2021 COVID-19, MRNA-LNP, 24-25, P R, 30MCG/0.3ML, IM, 12YRS AND ABOVE ([employer]) 03/11/2024 COVID-19, MRNA-LNP, PF, 30 M CG/0.3 mL, 12 YRS AND ABOVE, IM ([employer]) 04/07/2023 DTaP Dipth/Tet/Acell Pertussis (Infanrix), Peds 10/31/2003 [...] encounter Miscellaneous Notes * Telephone Encounter - Angeli Lee MD - 04/25/2024 12:05 PM EST Noted. I see Glipizide off the med list and updated. * Telephone Encounter - Ct Gardner CMA - 04/25/2024 9:41 AM EST Spoke to patient's daughter. She is agreeable and verbalized understanding. Would like to know if A1c can be rechecked in 3 months to ensure that she is okay without the glipizide. * Telephone Encounter - Ct Gardner CMA - 04/25/2024 9:40 AM EST ----- Message from Angeli Lee MD sent at 04/25/2024 2:04 AM EST ----- Patient's hemoglobin A1c is 4.9. She should stop taking glipizide and just continue on diet. We need to avoid hypoglycemia episodes. Continue 3 meals a day, healthy snack in between and hydration. Ifshe is agreeable please discontinue glipizide from the med list. Thanks documented in this encounter Plan of Treatment Upcoming Encounters Date Type Department Care Team (Late st Contact Info) Description 04/26/2024 6:00 AM EST Anticoagulation Central[facility] Clinical [facility] Services, Moe Mohamud [address] [place] [address] [place] [address] [place] [address] 05/27/2024 2:20 PM EST Office Visit Nephrology, [address] [place], [place] [address] Levy Garcia MD 200 [facility] [place] [address] 06/06/2024 10:15 AM EST Office Visit Ophthalmology, [facility] [address] [facility] [address] Kodi Souza DO [address] [place] [address] 09/02/2024 10:00 AM EDT Office Visit Cardiology, [facility] [address] [facility] [address] Dasia Cohen CRNP [address] [place] [address] 09/29/2024 9:20 AM EDT Office Visit General Internal Medicine [facility] [address] [facility] [place], [place] [address] Angeli Lee MD 200 [facility] [place] [address] Health Maintenance Due Date Last Done Comments [...] this encounter Medical Devices Implanted Type Area Highway Patrol Officer Device Identifier Shelf Expiration Date Model / Serial / Lot Lens Intraoc 25.5 - [id number] - [id number] Implanted:Qty: 1 on 09/03/2021 by Jeffrey Rodriguez MD at OR [facility] Left: Eye [employer] 09/28/2025 [id number] / [id number] / [id number] Lens Intraoc 24.5 - [id number] - [id number] Implanted:Qty: 1 on 09/17/2021 by Jeffrey Rodriguez MD at OR [facility] Right: Eye [employer] 10/29/2025 [id number] / [id number] / [id number] documented as of this encounter Care Teams Vegetable Farmer Relationship Specialty Start Date End Date Angeli Lee MD 200 [facility] [place] [address] PCP - General 11/02/08 documented as of this encounter
--- OUTSIDE RECORDS SUMMARY | 2024-05-21 10:46 | External Medical Summary ---
Author Name Unknown Address Unknown Organization K01[place] [place] [address] [place] [address] Laboratory Report Ordering Provider Test Date Status ARTUROSATINDERDONALD 04/25/2024 07:41:00 Final Recommended trough therapeut ic ranges:
0.5 to 0.8 for heart failure
0.5 to 1.1 for atrial fibrillation Observation Date Value Abnormality Reference (Units ) Status Digoxin 04/25/2024 07:41:00 0.7 0.5-1.1 (n g/mL) Final Performing Location [facility] [place] [address] [place] [address]
--- OUTSIDE RECORDS SUMMARY | 2024-05-21 10:46 | External Medical Summary | Summary of Care ---
Author Name Unknown Organization [facility] Address [address] [place] [place] [place] [facility] [place] [address] Phone [phone] Care Team Providers Care General Repair Mechanic Name Role Phone Angeli Lee MD Primary Care Provider + Reason for Visit * Reason Comments eRx-Medication Refill Encounter Details Date Type Department Care Team (Late st Contact Info) Description 04/26/2024 Refill Cardiology, [facility] [address] [facility] [place] [address] Dasia Quigley CRNP [address] [place] [address] HTN, goal below 140/80; Persistent atrial fibrillation (HCC); PURE HYPERGLYCERIDEMIA; Atrial fibrillation (HCC); Dyslipidemia, goal LDL below 100 Allergies No known active allergiesdocumented as of this encounter (statuses as of 04/29/2024) Medications GLUCOMETER ELITE CLASSIC KITIndications: DM type [...] at bedtime . Active Cholecalciferol (VITAMIN D3) 13672 units TABS Take 1 Tab by mouth [...] the evening. 11/17/19 23 Active DIURETIC TITRATION PLANIndications :Edema, unspecified type [...] 90 Tablet 3 09/03/19 24 Active Nystatin 706040 UNIT/GM External Powder (Nystop) APPLY TOPICALLY TO [...] MORNING 90 Tablet 3 04/29/20 24 Active Furosemide 40 MG Oral Tablet (Lasix)Indicati ons:HTN, goal below 140/80,Persiste nt atrial fibrillation (HCC),High triglycerides,A trial fibrillation (HCC),Dyslipide christopher, goal LDL below 100 TAKE 1 TABLET BY MOUTH IN THE MORNING 90 Tablet 3 07/28/19 24 024 Discontinued Hospital, Clinic, or Other [...] as of this encounter (statuses as of 04/29/2024) Active Problems Problem Noted Date Diagnosed Date [...] arthropathy 03/15/2009 Overview (03/15/2009): 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 1 07/17/2002 Anticoagulation management encounter 11/24/2001 Atrial fibrillation 05/26/2001 documented as of this encounter (statuses as of 04/29/2024) Resolved Problems Problem Noted Date Diagnosed Date [...] as of this encounter (statuses as of 04/29/2024) Immunizations Name Administration Dates Next Due COVID-19 mRNA, LNP-s, No Pre serve, 2-Dose Series ([employer]) 11/25/2021,05/14/2021,07/28/2020,10/2020 COVID-19, LNP-s, No Preserve , Joseph-sucrose, Ages 12+ ([employer]) 11/25/2021 COVID-19, MRNA-LNP, 24-25, P R, 30MCG/0.3ML, IM, 12YRS AND ABOVE ([employer]) 03/11/2024 COVID-19, MRNA-LNP, PF, 30 M CG/0.3 mL, 12 YRS AND ABOVE, IM ([employer]) 04/07/2023 DTaP Dipth/Tet/Acell Pertussis (Infanrix), Peds 10/31/2003 PPD 11/28/2022,11/19/2022 Pneumococcal Conjugate Vacc, 13 Valent (Prevnar) 12/24/2014 Pneumococcal Polysaccharide PPV23 (Pneumovax) 12/24/2014 RSV Vac., Bivalent, Perfusio n F, Pf,0.5 Ml ([employer]rysvo) 04/21/2023 Season Influenza, Quad, PF, Adjuvanted, 65+ Yrs, IM ([employer]) 02/08/2020 Seasonal Influenza Vac., MDV , IM, 0.5 mL (Fluzone) 02/16/2014,03/17/2013,03/05/2012,01/31,03/19/2010,03/07/2009,03/15/20,03/16/2007,03/25/2006 03/07/2010 Seasonal Influenza Virus Vac cine, Unspecified [...] encounter Miscellaneous Notes * Telephone Encounter - Rafael Garcia RPh - 04/29/2024 2:34 PM ESTSigned Prescriptions: Disp Refills Furosemide 40 MG Oral Tablet (Lasix) 90 Tab*3 Sig: TAKE 1 TABLETBY MOUTH IN THE MORNINGAuthorizing Provider: DASIA QUIGLEY User: RAFAEL GARCIA----- documented in this encounter Plan of Treatment Upcoming Encounters Date Type Department Care Team (Late st Contact Info) Description 05/23/2024 7:20 AM EST Laboratory Lab Mobile Phlebotomy [facility] [place] [address] [facility], Gml Mobile Home Draw [address] [place] [address] 05/24/2024 6:00 AM EST Anticoagulation Centralized Clinical Pharmacy Services, Moe Mohamud [address] [place] [address] [place] [address] [facility], [address] [place] [address] 05/27/2024 2:20 PM EST Office Visit Nephrology, [facility] [address] [place] [address] Levy Garcia MD [address] [place] [address] 06/06/2024 10:15 AM EST Office Visit Ophthalmology, [facility] 132 [facility] [place] [address] Kodi Souza DO [address] [place] [address] 09/02/2024 10:00 AM EDT [facility] [address] [place] [address] Dasia Quigley CRNP [address] [place] [address] 09/29/2024 9:20 AM EDT Office Visit General Internal Medicine [facility] 200 [facility] [place], [place] [address] Angeli Lee MD 200 [facility] [place] [address] Health Maintenance Due Date Last Done Comments [...] this encounter Medical Devices Implanted Type Area Inspector Line Device Identifier Shelf Expiration Date Model / Serial / Lot Lens Intraoc 25.5 - [id number] - [id number] Implanted:Qty: 1 on 09/03/2021 by Jeffrey Rodriguez MD at OR [facility] Left: Eye [employer] 09/28/2025 [id number] / [id number] / [id number] Lens Intraoc 24.5 - [id number] - [id number] Implanted:Qty: 1 on 09/17/2021 by Jeffrey Rodriguez MD at OR [facility] Right: Eye [employer] 10/29/2025 [id number] / [id number] / [id number] documented as of this encounter Visit Diagnoses Diagnosis HTN, goal below 140/80 Unspecified essential hypertension Persistent atrial fibrillation (HCC) Atrial fibrillation PURE HYPERGLYCERIDEMIA Pure hyperglyceridemia Atrial fibrillation (HCC) Atrial fibrillation Dyslipidemia, goal LDL below 100 Other and unspecified hyperlipidemia documented in this encounter Care Teams General Repair Mechanic Relationship Specialty Start Date End Date Angeli Lee MD 200 [facility] [address] PCP - General 11/02/08 documented as of this encounter
--- OUTSIDE RECORDS SUMMARY | 2024-05-21 10:46 | External Medical Summary | Summary of Care ---
Author Name Unknown Organization [facility] Address [address] [facility] [place] [address] Phone [phone] Care Team Providers Care Software Technical Lead Name Role Phone Angeli Lee MD Primary Care Provider + Reason for Visit * Reason Comments Dosage Adjustment Via Phone (anticoag Cl inic) Encounter Details Date Type Department Care Team (Late st Contact Info) Description 04/26/2024 6:00 AM EST Anticoagulation Centralized Clinical Pharmacy Services, Moe Mohamud [address] [place] [address] [place] [address] [facility], [address] [place] [address] Atrial fibrillation, unspecified type (HCC)* Allergies No known active allergiesdocumented as of [...] at bedtime . Active Cholecalciferol (VITAMIN D3) 86665 units TABS Take 1 Tab by mouth [...] every evening. 90 Tablet 3 4 Active Furosemide 40 MG Oral Tablet (Lasix)Indicatio ns:HTN, goal below 140/80,Persisten t atrial fibrillation (HCC),High triglycerides,At rial fibrillation (HCC),Dyslipidem ia, goal LDL below 100 TAKE 1 TABLET BY MOUTH IN THE MORNING 90 Tablet 3 4 Active Allopurinol 300 [...] MORNING 90 Tablet 3 4 Active Nystatin 178093 UNIT/GM External Powder (Nystop) APPLY TOPICALLY TO [...] Thursday, and Thursday. 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 1 07/17/2002 [...] mRNA, LNP-s, No Pre serve, 2-Dose Series (DotBlu) 11/25/2021,05/14/2021,07/28/2020,10/2020 COVID-19, LNP-s, No Preserve , Joseph-sucrose, Ages 12+ (DotBlu) 11/25/2021 COVID-19, MRNA-LNP, 24-25, P R, 30MCG/0.3ML, IM, 12YRS AND ABOVE (Learndot[employer] Body MD) 03/11/2024 COVID-19, MRNA-LNP, PF, 30 M CG/0.3 mL, 12 YRS AND ABOVE, IM ([employer] Division[employer]ern) 04/07/2023 DTaP Dipth/Tet/Acell Pertussis (Infanrix), Peds 10/31/2003 [...] on file documented as of this encounter Progress Notes * Diana Whitehead, [facility] - 04/26/2024 12:10 PM EST Rerouted for 05/23. Diana Whitehead Rph, Pharm.D. Clinical Pharmacist Centralized Clinical Pharmacy Services ([facility]PS) [phone] 04/26/2024,12:10 PM * Liana Lubin PHARM Tech - 04/26/2024 10:09 AM EST Contacts Contact Date/Time Type Contact Phone/Fax 04/26/2024 10:08 AM EST Phone (Outgoing) PALOMA JAQUEZ (Emergency Contact) [phone] (M) Spoke to Patient Subjective Patient Findings Negatives: Signs/symptoms of bleeding, Change in health, Change in activity, Upcoming invasive procedure, Missed doses, Extra doses, Change in medications, Change in diet/appetite, Bruising Advised patient to contact Anticoagulation Clinic if any unusual bruising or bleeding, recent illness, changes in medication, or questions/concerns. PT/INR results, Coumadin dose instructions, and next PT/INR date communicated as noted by Pharmacist: Yes Reached out to Lesia GAR pt will be seen again in 4wks 05/23. ADRIANA Moreland 04/26/2024, 10:09 AM * Diana Whitehead RPh - 04/26/2024 8:47 AM EST Coumadin Clinic (region specific) Objective Current Warfarin Dose As of 04/26/2024 Warfarin maintenance plan: 0 mg every Mon; 2.5 mg (5 mg x 0.5) all other days INR Result As of 04/26/2024 INR goal: 2.0-3.0 INR used for dosin.5 (04/25/2024) Assessment & Plan Warfarin Plan As of 04/26/2024 Full warfarin instructions: 0 mg every Mon; 2.5 mg all other days No change documented: Diana Whitehead RPh Next INR check: 05/09/2024 Repeat PT/INR in 2 week(s) Weekly dose: not changed Additional Dosing Information: Description GML // Tech to contact patient with dose instructions as noted. Diana Whitehead RPh 04/26/2024, 8:47 AM documented in this encounter Plan of Treatment Upcoming Encounters Date Type Department Care Team (Late st Contact Info) Description 05/10/2024 6:00 AM EST Anticoagulation Centralized Clinical Pharmacy Services, Moe Mohamud [address] [place] [address] [place] [address] [facility], [address] [place] [address] 05/27/2024 2:20 PM EST Office Visit Nephrology, [facility] [address] [facility] [place] [address] Levy Garcia MD [address] [facility] [place] [address] 06/06/2024 10:15 AM EST Office Visit Ophthalmology, [facility] [address] [place] [address] Kodi Souza DO [address] [place] [address] 09/02/2024 10:00 AM EDT Office Visit Cardiology, [facility] [address] [place] [address] Dasia Cohen CRNP [address] [place] [address] 09/29/2024 9:20 AM EDT Office Visit General Internal Medicine [facility] [place] [address] [place] [address] Angeli Lee MD [address] [place] [address] Health Maintenance Due Date Last Done Comments [...] this encounter Medical Devices Implanted Type Area [facility] Aides Teacher Device Identifier Shelf Expiration Date Model / Serial / Lot Lens Intraoc 25.5 - [id number] - [id number] Implanted:Qty: 1 on 09/03/2021 by Jeffrey Rodriguez MD at OR [facility] Left: Eye [employer] 09/28/2025 [id number] / [id number] / [id number] Lens Intraoc 24.5 - [id number] - [id number] Implanted:Qty: 1 on 09/17/2021 by Jeffrey Rodriguez MD at OR [facility] Right: Eye [employer] 10/29/2025 [id number] / [id number] / [id number] documented as of this encounter Visit Diagnoses Diagnosis Atrial fibrillation, unspecified type (HCC)- Primary documented in this encounter Care Teams Software Technical Lead Relationship Specialty Start Date End Date Angeli Lee MD [address] [facility] [place] [address] PCP - General 11/02/08 documented as of this encounter
--- OUTSIDE RECORDS SUMMARY | 2024-05-21 10:46 | External Medical Summary ---
Author Name Unknown Address Unknown Organization [id number]:[facility] [address] [place] [address] Laboratory Report Ordering Provider Test Date Status MICHAEL MADDEN 04/25/2024 07:41:00 Final Standing order for pt/inr. < br/>Please draw pt/inr every 1 to 4 weeks as requested
Results to [facility]

Warfarin Therapy
INR: 2.0-3.0 conventional anticoagulation
INR: 2.5-3.5 high intensity anticoagulation Observation Date Value Abnormality Reference (Units ) Status PT 04/25/2024 07:41:00 27.4 Above high normal 11 .6-15.2 (seconds) Final INR 04/25/2024 07:41:00 2.5 Above high normal 0. 8-1.2 Final Performing Location [facility] [address] [place] [address]
--- OUTSIDE RECORDS SUMMARY | 2024-05-21 10:47 | External Medical Summary ---
Author Name Unknown Address Unknown Organization [id number]:[facility] [place] [address] Laboratory Report Ordering Provider Test Date Status GARCIA CHAVZE 03/30/2024 11:08:06 Final Observation Date Value Abnormality Reference (Units ) Status HbA1C 03/30/2024 11:08:06 4.9 4.0-5.6 (% ) Final Performing Location [facility] [place] [address]
--- OUTSIDE RECORDS SUMMARY | 2024-05-21 10:47 | External Medical Summary | Summary of Care ---
Author Name Unknown Organization [facility] Address [address] [place] [address] Phone [phone] Care Team Providers Care Window Display Designer Name Role Phone Angeli Lee MD Primary Care Provider + Reason for Visit * Reason Comments Follow Up Encounter Details Date Type Department Care Team (Latest Contact Info) Description 03/30/2024 10:20 AM EDT Office Visit General Internal Medicine [facility] [place] [address] [place] [place] [address] Angeli Lee MD 200 [facility] [place] [address] Type 2 diabetes mellitus with hemoglobin A1c goal of less than 7.0% ([facility])*; 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 one 0 8 Active FREESTYLE LITE STRPIndications:DM type 2, goal A1c below 7 check sugars tid 1 11 8 Active FREESTYLE LANCETS MISCIndications:DM type 2, goal A1c below 7 check blood sugars 3 times daily 1 box 11 8 Active ASPIRIN 81 MG PO TBEC Take by mouth at bedtime . Active Cholecalciferol (VITAMIN D3) 48763 units TABS Take 1 Tab by mouth every evening. Active Cyanocobalamin (VITAMIN B12) 1000 MCG TBCR Take by mouth at bedtime . Active Misc Natural Products (APPLE CIDER VINEGAR DIET) TABS Take by mouth. Active Apple Cider Vinegar 500 MG Oral Tablet Take by mouth 1 Tablet daily with dinner . Active Digoxin 125 MCG Oral Tablet (Lanoxin) Take 1 Tablet by mouth in the morning. 34 Tablet 11 3 Active Additional Information Patient taking differently:125 mcg Oral Daily(AM),Take three times a week on Thursday, and Thursday, Reported on 01/27/2023 diphenhydrAMINE-AP AP (sleep) 25-500 MG Oral Tablet Take 2 Tablets by mouth at bedtime. 3 Active PreserVision AREDS Oral Capsule Take 1 Capsule by mouth in the morning and 1 Capsule in the evening. 3 Active DIURETIC TITRATION PLANIndications:Ed eunice, unspecified type If no improvement on day 3, contact heart failure managing provider. 1 Each 3 Active Metoprolol Succinate ER 50 MG Oral Tablet Extended Release 24 Hour (toPROL XL)Indications:Chr onic atrial fibrillation (HCC),HTN, goal below 140/90 TAKE ONE TABLET BY MOUTH IN THE MORNING 90 Tablet 3 4 Active Warfarin Sodium 5 MG Oral Tablet (Coumadin)Indicati ons:HTN, goal below 140/80,Persistent atrial fibrillation (HCC),High triglycerides,Atri al fibrillation (HCC),Dyslipidemia , goal LDL below 100 Take 1 Tablet by mouth every evening. 90 Tablet 3 4 Active Furosemide 40 MG Oral Tablet (Lasix)Indications :HTN, goal below 140/80,Persistent atrial fibrillation (HCC),High triglycerides,Atri al fibrillation (HCC),Dyslipidemia , goal LDL below 100 TAKE 1 TABLET BY MOUTH IN THE MORNING 90 Tablet 3 4 Active Allopurinol 300 MG Oral Tablet (Zyloprim)Indicati ons:Gouty arthropathy,Type 2 diabetes mellitus with hemoglobin A1c goal of less than 7.0% (HCC) TAKE 1 TABLET BY MOUTH IN THE MORNING 90 Tablet 2 4 Active Pravastatin Sodium 40 MG Oral Tablet (Pravachol)Indicat ions:High triglycerides,Dysl ipidemia, goal LDL below 100 Take 1 Tablet by mouth at bedtime. 90 Tablet 3 4 Active dilTIAZem HCl ER Coated Beads 120 MG Oral Capsule Extended Release 24 Hour (Cardizem CD)Indications:Per sistent atrial fibrillation (HCC) TAKE 1 CAPSULE IN THE MORNING 90 Capsule 3 4 Active Lisinopril 10 MG Oral Tablet (Prinivil)Indicati ons:HTN, goal below 140/80 TAKE 1 TABLET BY MOUTH IN THE MORNING 90 Tablet 3 4 Active glipiZIDE 5 MG Oral Tablet (Glucotrol) TAKE 1 TABLET EVERY MORNING AND 1 TABLET BEFORE BEDTIME (TAKE 30 MINUTES BEFORE MEALS). 180 Tablet 1 4 Active Nystatin 632105 UNIT/GM External Powder (Nystop) APPLY TOPICALLY TO AFFECTED AREA 3 TIMES A DAY. APPLY FOR ABDOMINAL FOLDS TWICE A DAY NEEDED 60 g 3 4 Active Fenofibrate 48 MG Oral Tablet (Tricor)Indication s:Dyslipidemia, goal LDL below 100 Take 1 Tablet by mouth in the morning. 30 Tablet 5 4 Active Comirnaty 30 MCG/0.3ML Intramuscular Suspension Prefilled Syringe Inject into a large muscle. 0.3 mL 4 03/30/20 24 Discontinued Hospital, Clinic, or Other Facility Administered [...] as of this encounter (statuses as of 03/30/2024) Active Problems Problem Noted Date Diagnosed Date Hypertensive heart and kidne y disease with chronic diastolic congestive heart failure and stage 4 chronic kidney disease 03/30/2024 Body mass index (BMI) 45.0-49.9, adult Body mass index (BMI) of 45.0 to 49.9 in adult 1 Overview: Per Obesity protocol - Type 2 diabetes mellitus wit h stage [...] 12/31/2010 DYSLIPIDEMIA, GOAL LDL BELOW 100 05/10/2009 Overview: Per Lipid Taxonomy. Type 2 diabetes mellitus wit h hemoglobin A1c goal of less than 7.0% 03/29/2009 Overview: Per Diabetes Taxonomy. ICD-10 update of inactive term 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 Overview: ICD-9 Code Update FPC current use of anticoagulant therapy 1 07/17/2002 Anticoagulation management encounter 11/24/2001 Atrial fibrillation 05/26/2001 documented as of this encounter (statuses as of 03/30/2024) Resolved Problems Problem Noted Date Diagnosed Date Resolved Date Bilateral malignant neoplasm of breast in female, estrogen receptor positive 03/10/202302/17 Overview: 12/13/19 Hem/Onc note "Planning for total 5 years of anastrozole in her case which she will complete in January 2020. Now she has done well for the 5 years, no evidence of recurrent disease, there is no need for oncology follow-up." 09/22/23 Int Med note "history of bilateral breast cancer, status post completion of the treatment" Atrial fibrillation, unspecified type 11/12/2022 02/18/2024 Overview: duplicate Type 2 diabetes mellitus wit h [...] a of bilateral female breasts 11/04/2018 02/18/2024 Overview: 12/13/19 Hem/Onc note "Planning for total 5 [...] Carcinoma in situ of breast 01/08/2015 02/18/2024 Overview: 12/13/19 Hem/Onc note "Planning for total 5 years of anastrozole in her case which she will complete in January 2020. Now she has done well for the 5 years, no evidence of recurrent disease, there is no need for oncology follow-up." 09/22/23 Int Med note "history of bilateral breast cancer, status post completion of the treatment" Bilateral breast cancer 01/08/201501/30 Overview: 12/13/19 Hem/Onc note "Planning for total 5 [...] Protocol #27. HTN, GOAL BELOW 130/80 06/27/200901/21 Overview: Per HTN Taxonomy. Benign neoplasm of colon 06/07/200711/2016 Overview: adenomatous polyps--repeat 3 years Dyslipidemia, goal to be determined 08/18/2006 05/10/2009 Overview: Per Lipid Taxonomy. ADVANCE DIRECTIVE INFORMATION 11/21/2004 04/07/2017 Overview: No, Advance Directive brochure offered , patient declined. Gouty arthropathy 02/16/2004 03/15/2009 Overview: ICD-9 Code Update ICD-10 update of inactive term Type 2 diabetes mellitus wit h hemoglobin A1c goal of less than 7.0% 10/28/2002 03/29/2009 Overview: Per Diabetes Taxonomy. ICD-10 update of inactive term High triglycerides 08/18/2002 2 HTN, goal below 140/90 05/26/200106/27 Overview: Per HTN Taxonomy. Type 2 diabetes mellitus wit h hemoglobin A1c goal of less than 7.0% 07/06/2008 Overview: Resolved per Duplicate Protocol #2. ICD-10 update of inactive term Type 2 diabetes mellitus wit h hemoglobin A1c goal of less than 7.0% 07/06/2008 Overview: Resolved per Duplicate Protocol #2. ICD-10 update of inactive term documented as of this encounter (statuses as of 03/30/2024) Immunizations Name Administration Dates Next Due COVID-19 mRNA, LNP-s, No Pre serve, 2-Dose Series (DosYogures) 11/25/2021,05/14/2021,07/28/2020,10/2020 COVID-19, LNP-s, No Preserve , Joseph-sucrose, Ages 12+ (DosYogures) 11/25/2021 COVID-19, MRNA-LNP, 23-24, P F, 30 MCG/0.3 mL, 12 YRS AND ABOVE, IM ([employer]) 04/07/2023 COVID-19, MRNA-LNP, 24-25, P R, 30MCG/0.3ML, IM, 12YRS AND ABOVE (DosYogures-[employer]irnat[employer]) 03/11/2024 DTaP Dipth/Tet/Acell Pertussis (Infanrix), Peds 10/31/2003 PPD [...] money to get more. Never true 11/01/2020 Utilities Answer Date Recorded Do you have trouble paying y our heating, water, or electric bill? (Adult - for ages 18 years and over) Not on file 11/17/2023 Is your family able to pay t he heat, water, or electric bill? (Household - for ages 0-17 years) Not on file 11/17/2023 Does your family have access to good internet? (Household - for ages 0-17 years) Not on file 11/17/2023 Social Connections Answer Date Recorded How often do you feel lonely or isolated from those around you? 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 Gouty arthropathy Type 2 diabetes mellitus with hemoglobin A1c goal of less than 7.0% ([facility]) DYSLIPIDEMIA, GOAL LDL BELOW 100 L KNEE JOINT REVISION HTN, goal below 140/90 Acquired absence of other toe(s), unspecified side ([facility]) Morbid obesity due to excess calories ([facility]) Exudative age-related macular degeneration of left eye with active choroidal neovascularization ([facility]) Type 2 diabetes mellitus with stage 4 chronic kidney disease, without long-term current use of insulin ([facility]) Chronic kidney disease, stage 4 (severe) ([facility]) Body mass index (BMI) of 45.0 to 49.9 in adult ([facility]) 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 one 0 FREESTYLE LITE STRP check sugars tid 1 11 FREESTYLE LANCETS MISC check blood sugars 3 times daily 1 box 11 ASPIRIN 81 MG PO TBEC Take by mouth at bedtime . Cholecalciferol (VITAMIN D3) 42278 units TABS Take 1 Tab by mouth [...] MINUTES BEFORE MEALS). 180 Tablet 1 Nystatin 304062 UNIT/GM External Powder (Nystop) APPLY TOPICALLY TO [...] 6 mg 6 mg Intravitreal PRN Kodi Souza, DO 6 mgat 03/11/24 1028 ROPivacaine (Naropin) [...] Name Age of Onset Heart Disorder Father [place] age 53 Neurological Disorder Mother Accident age 20 Hypertension Sister Heart Disorder Brother [place] age 53 No Past Hx Sister Thyroid [...] hemoglobin A1c goal of less than 7.0% ([facility]) (Primary) - ALBUMIN / CREATININE [...] Avoid nsaids. Continue low salt and hydration. 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 [...] Care Team (Late st Contact Info) Description 03/30/2024 11:00 AM EDT Laboratory Laboratory State Margy Barton [address] [facility] [place] [address] Beverly Hassan [facility] [address] [facility] [place] [address] Arrived 04/25/2024 7:00 AM EST Laboratory Lab Mobile Phlebotomy [facility] [address] [place] [address] [facility], [facility] Mobile Home Draw [address] [facility] [place] [address] 04/26/2024 6:00 AM EST Anticoagulation Centralized Clinical Pharmacy Services, Moe Mohamud [address] [place] [address] [place] [address] [place] [address] 05/27/2024 2:20 PM EST Office Visit Nephrology, [facility] [address] [facility] [place] [address] Levy Garcia MD [address] [facility] [place] [address] 06/06/2024 10:15 AM EST Office Visit Ophthalmology, [facility] [address] [place] [address] Kodi Souza DO [address] [place] [address] 09/02/2024 10:00 AM EDT Office Visit Cardiology, [facility] [address] [place] [address] Dasia Cohen CRNP [address] [place] [address] 09/29/2024 9:20 AM EDT Office Visit General Internal Medicine [facility] [place] [address] [facility] [place] [address] Angeli Lee MD [address] [facility] [place] [address] Scheduled Orders Name Type Priority Associated Diagnoses Order Schedule ALBUMIN / CREATININE RATIO, URINE Lab Routine Type 2 diabetes mellitus with hemoglobin A1c goal of less than 7.0% (HCC) Expected: 03/30/2024 (Approximate), Expires: 03/30/2025 HEMOGLOBIN A1C, POINT OF CARE Point of Care Testing - Unsolicited Results Routine Type 2 diabetes mellitus with hemoglobin A1c goal of less than 7.0% (HCC) Ordered: 03/30/2024 Health Maintenance Due Date Last Done Comments Adult Wellness Visit 06/07/2020 06/07/2019 Depression Screening 11/01/2021 11/01/2020 Albumin/Creatinine Ratio 08/29/202308/28/2 023, 08/20/2021, 10/28/2018, Additional history exists Diabetic Foot Exam 12/19/2023 12/18/2022, 0 11/01/2020, 11/04/2018, Additional history exists HbA1c 03/18/2024 09/17/2023, 08/0 07/2022, 11/11/2022, Additional history exists Nephrology Referral 09/07/2024 09/08/2023, 1 DIG LEVEL FOR MEDICATION MONITORING YEARLY 09/16/2024 09/17/2023, 12/18/2022, 11/04/2021, Additional history exists Hgb 09/16/2024 09/17/2023, 10/30, 09/17/2022, Additional history exists PTH 09/16/2024 09/17/2023, 08/30, 11/04/2018, Additional history exists Phosphate 09/16/2024 09/17/2023, 08/30, 05/09/2021, Additional history exists Diabetic Eye Exam 11/01/2024 11/02/2023, , 01/27/2023, Additional history exists DTap/Tdap Vaccines (6 - Td or Tdap) 10/17/2029 10/18/2019, 10/18/2019, 10/31/2003, Additional history exists Colonoscopy Discontinued 11/20/2010, 06/07/2007 Pneumococcal Vaccine: 65+ Years Completed 12/24/2014, 12/24/2014, 05/04/2004 Zoster Vaccines Completed 02/08/2021, 10/30, 12/13/2013 Influenza Vaccine (FLU shot) Completed 02/19/2024, 03/10/2023, 04/18/2022, Additional history exists COVID-19 Vaccine Completed 03/11/2024, 11/2022, 11/25/2021, Additional history exists HPV (Gardasil) Vaccine Aged Out No lo nger eligible based on patient's age to complete this topic Hepatitis B Vaccine Aged Out No longe r eligible based on patient's age to complete this topic MENINGOCOCCAL (MENACTRA/MENVEO) Aged Out No longer eligible based on patient's age to complete this topic documented as of this encounter Medical Devices Implanted Type Area Crate Icer Device Identifier Shelf Expiration Date Model / Serial / Lot Lens Intraoc 25.5 - [id number] - [id number] Implanted:Qty: 1 on 09/03/2021 by Jeffrey Rodriguez MD at OR [facility] Left: Eye [employer] 09/28/2025 [id number] / [id number] / [id number] Lens Intraoc 24.5 - [id number] - [id number] Implanted:Qty: 1 on 09/17/2021 by Jeffrey Rodriguez MD at OR [facility] Right: Eye [employer] 10/29/2025 [id number] / [id number] / [id number] documented as of this encounter Visit Diagnoses [...] hyperlipidemia documented in this encounter Care Teams Window Display Designer Relationship Specialty Start Date End Date Angeli Lee MD 200 [facility] [place] [place] [address] PCP - General 11/02/08 documented as of this encounter
--- OUTSIDE RECORDS SUMMARY | 2024-05-21 10:47 | External Medical Summary | Summary of Care ---
Author Name Unknown Organization [facility] Address [address] [place] [address] Phone [phone] Care Team Providers Care Accounting Administrative Assistant Name Role Phone Angeli Lee MD Primary Care Provider + Reason for Visit * Reason Comments Follow Up * Precert (Within 10 days (routine)) - Authorized Specialty Diagnoses / Procedures Referred By Salma cohen Referred To Contact Ophthalmology Diagnoses Exudative age-related macular degeneration, left eye, with active choroidal neovascularization (HCC) Procedures MI INJECTION, FARICIMAB-SVOA, 0.1 MG MI INTRAVITREAL NJX PHARMACOLOGIC AGT SPX Kodi Souza [facility] [address] [facility] [address] Referral ID Status Reason Start Date Expiration Date V isits Requested Visits Authorized [id number] Authorized Precert 06/09/2023 05/31/[id number] Encounter Details Date Type Department Care Team (Late st Contact Info) Description 03/11/2024 10:15 AM EDT Office Visit Ophthalmology, [facility] [address] [facility] [place] [address] Kodi Souza DO [address] [facility] [address] Exudative age-related macular degeneration of left eye with active choroidal neovascularization (HCC)* Allergies No known active allergiesdocumented as of this encounter (statuses as of 03/11/2024) Medications Medication Sig Dispensed Refills Start Date End Date Status GLUCOMETER ELITE CLASSIC KITIndications:DM type 2, goal A1c below 7 check sugar 2-3 times a week. one 0 06/16/2007 Active FREESTYLE LITE STRPIndications:DM type 2, goal A1c below 7 check sugars tid 1 11 12/01/2007 Active FREESTYLE LANCETS MISCIndications:DM type 2, goal A1c below 7 check blood sugars 3 times daily 1 box 11 04/17/2008 Active ASPIRIN 81 MG PO TBEC Take by mouth at bedtime . Active Cholecalciferol (VITAMIN D3) 21922 units TABS Take 1 Tab by mouth [...] mouth in the morning. 34 Tablet 11 12/31/2022 Active Additional Information Patient taking differently:125 mcg Oral Daily(AM),Take three times a week on Thursday, and Thursday, Reported on 01/27/2023 diphenhydrAMINE-APA P (sleep) 25-500 MG Oral Tablet Take 2 Tablets by mouth at bedtime. 11/16/2022 Active PreserVision AREDS Oral Capsule Take 1 Capsule by mouth in the morning and 1 Capsule in the evening. 11/16/2022 Active DIURETIC TITRATION PLANIndications:Laith demarco, unspecified type If no improvement on day 3, contact heart failure managing provider. 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 90 Tablet 3 06/29/2023 Active Furosemide 40 MG Oral Tablet (Lasix)Indications: HTN, goal below 140/80,Persistent atrial fibrillation (HCC),High triglycerides,Atria l fibrillation (HCC),Dyslipidemia, goal LDL below 100 TAKE 1 TABLET BY MOUTH IN THE MORNING 90 Tablet 3 07/28/2023 Active Allopurinol 300 MG Oral Tablet (Zyloprim)Indicatio ns:Gouty arthropathy,Type 2 diabetes mellitus with hemoglobin A1c goal of less than 7.0% (HCC) TAKE 1 TABLET BY MOUTH IN THE MORNING 90 Tablet 2 07/28/2023 Active Pravastatin Sodium 40 MG Oral Tablet (Pravachol)Indicati ons:High triglycerides,Dysli pidemia, goal LDL below 100 Take 1 Tablet by mouth at bedtime. 90 Tablet 3 08/05/2023 Active dilTIAZem HCl ER Coated Beads 120 MG Oral Capsule Extended Release 24 Hour (Cardizem CD)Indications:Pers istent atrial fibrillation (HCC) TAKE 1 CAPSULE IN THE MORNING 90 Capsule 3 08/05/2023 Active Lisinopril 10 MG Oral Tablet (Prinivil)Indicatio ns:HTN, goal below 140/80 TAKE 1 TABLET BY MOUTH IN THE MORNING 90 Tablet 3 09/03/2023 Active glipiZIDE 5 MG Oral Tablet (Glucotrol) TAKE 1 TABLET EVERY MORNING AND 1 TABLET BEFORE BEDTIME (TAKE 30 MINUTES BEFORE MEALS). 180 Tablet 1 11/10/2023 Active Nystatin 409032 UNIT/GM External Powder (Nystop) APPLY TOPICALLY TO AFFECTED AREA 3 TIMES A DAY. APPLY FOR ABDOMINAL FOLDS TWICE A DAY NEEDED 60 g 3 01/07/2024 Active Fenofibrate 48 MG Oral Tablet (Tricor)Indications :Dyslipidemia, goal LDL below 100 Take 1 Tablet by mouth in the morning. 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 L KNEE JOINT REVISION 12/31/2010 DYSLIPIDEMIA, GOAL LDL BELOW 100 05/10/2009 Overview: Per Lipid Taxonomy. Type 2 diabetes mellitus wit h hemoglobin A1c goal of less than 7.0% 03/29/2009 Overview: Per Diabetes Taxonomy. 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 02/18/2024 [...] as of this encounter (statuses as of 03/11/2024) Immunizations Name Administration Dates Next Due COVID-19 mRNA, LNP-s, No Pre serve, 2-Dose Series ([employer] [facility]) 11/25/2021,05/14/2021,07/28/2020,0 10/2020 COVID-19, LNP-s, No Preserve , Joseph-sucrose, Ages 12+ (Pfizer) 11/25/2021 COVID-19, MRNA-LNP, 23-24, P F, 30 MCG/0.3 mL, 12 YRS AND ABOVE, IM (PFIZER-Comirnaty) 04/07/2023 DTaP Dipth/Tet/Acell Pertussis (Infanrix), Peds 10/31/2003 [...] as of this encounter Progress Notes * Kodi Souza DO - 03/11/2024 10:15 AM EDT [facility] [place] Nursing Notes: Carmel Price RN 03/11/24 1007 Signed Angela Lazar is a 89 year old year old female who presents for AMD OU. Last Office Visit: 12/18/2023 (in office), Visit date not found (telemedicine) Patient currently states no change in vision. Are you diabetic? Yes. Do you check your blood sugars daily? YES. Did not measure this morning. Last Hemoglobin A1C: Lab Results Component Value Date/Time HGBA1C 7.3 (H) 09/17/2023 07:26 AM HGBA1C 7.5 (H) 12/31/2022 11:20 AM HGBA1C 7.2 (H) 11/11/2022 07:45 AM HGBA1C 6.9 (H) 05/03/2020 10:41 AM HGBA1C 6.8 (H) 10/18/2019 11:31 AM HGBA1C 6.6 (H) 10/28/2018 11:[address]? no OCT image(s) of left eye acquired and filed/scanned into chart. Liana Ahuja TECH 03/11/24 1028 Signed Angela Lazar to receive 10 Vabysmo 6mg Injection of the Left eye. Correct eye confirmed with patient and marked by Kodi Souza DO Vabysmo 6mg lot # [id number] Exp. Date: 01/2025 Base Eye Exam Visual Acuity (Snellen - Linear) Right Left Dist cc 20/60 -1 20/100 +2 Dist ph cc 20/40 -1 NI Correction: Glasses Tonometry (Tonopen, 10:06 AM) Right Left Pressure 16 15 Pupils Pupils APD Right PERRL None Left PERRL None Visual Frias (Counting fingers) Right Left Full Full Extraocular Movement Right Left Full, Ortho Full, Ortho Neuro/Psych Oriented x3: Yes Mood/Affect: Normal Dilation Both eyes: 0.5% Proparacaine @ 10:05 AM Dilation #2 Left eye: 1.0% Mydriacyl, 2.5% Phenylephrine @ 10:05 AM Dilation #3 Left eye: 1.0% Mydriacyl, 2.5% Phenylephrine @ 10:07 AM Dilation Comments Patient cautioned that effects of dilation may last 2-7 hours dependant upon individual reaction. It was discussed that driving while dilated is not recommended. EXTERNAL: The ocular adnexae are unremarkable. SLE: Lids/Lashes: wnl OU Conjunctiva/Sclera: quiet OU Cornea: clear OU Anterior Chamber: deep and quiet OU Iris: normal OU; no NVI OU Lens: PCIOL OU; PCO OS Dilated fundus exam OD: 06/30/2023: vitreous: clear w/ pvd optic nerve: 0.3, no edema/pallor/NVD macula: mild drusen vessels: wnl periphery: wnl, no RT/RD Dilated fundus exam OS: vitreous: clear w/ pvd optic nerve: 0.3, no edema/pallor/NVD macula: resolved trace heme vessels: wnl periphery: wnl, no RT/RD OCT Interpretation: OD: 06/30/2023: mild rpe alterations, no cme/srlfuid, +pvd--stable OS: +erm, srmounding, mild srfluid, +pvd--STABLE, prior worse 21um prior improved, prior no sig change, prior improved 92um prior worse 47um, prior STABLE, prior TABLE, prior trace improved, prior improved, prior improved A/P: 1. Age-Related Macular Degeneration OU OD: dry -recommend AREDS2 MVI as directed and Amsler grid qday -monitor OS: wet -Avastin OS 04/11/22, 02/21/22, 01/08/22, 11/25/21, 10/08/21, 08/26/21, 07/18/21, 05/20/21, 04/11/21 -worse at 10 weeks ; went 8 weeks -Vabysmo 12/18/23, 09/17/23, 06/30/23, 04/07/23, 01/27/23, 11/14/22, 08/28/22, 06/19/22--improved -12 weeks; worse at 12 weeks, better at 10 weeks 2. Posterior Vitreous Detachment OU -no RT/RD -advised to return to clinic if she should experience worsening or new floaters, flashes of light, a shadow in the periphery, or decrease in vision. 3. Epiretinal Membrane OS -no treatment indicated at this time -monitor 4. DM2 -DM2 -no retinopathy -recommend HgbA1C <7, BP and lipid control. 5. Pseudophakia OU -Dr. Rodriguez -PCO OS--recommend yag cap F/u 12-14 weeks, OCT OU Kodi Souza DO CC: Jeffrey Rodriguez MD CC: PCP: Angeli Lee MD TIMEOUT PROCEDURE: correct patient identity-YES correct procedure and consent-YES verified side and site-YES correct patient position-YES all necessary equipment/prior studies present-YES reviewed special requirements of this patient-YES PROCEDURE: Intravitreal injection of Vabysmo (faricimab) 6mg OS INFORMED CONSENT: Risks, benefits and alternatives have been discussed with the patient. Risks include, but are not limited to: retinal tears, detachments, hemorrhage, glaucoma, infection, cataracts, need for more procedures and the potential risk of arterial thromboembolic events following use of intravitreal VEGF inhibitors defined as nonfatal stroke, nonfatal myocardial infarction or vascular . Patient is aware of these risks and consents to the procedure. DESCRIPTION OF PROCEDURE: The procedure site was confirmed. Topical proparacaine was applied to the surface of the eye after which subconjunctival anesthetic was administered. The area was prepped in the standard aseptic manner with 5% Betadine solution. An eyelid speculum was placed and 6mg (0.05 ml) of Vabysmo was injected 3.75 mm posterior to the limbus into the midvitreous cavity with a 30 gauge short needle. The eye speculum was removed, Betadine was flushed from the eye and optic nerve perfusion was insured. The patient tolerated the procedure without difficulty and was given followup instructions and instructedto use ophthalmic ointment 3x/day as needed. Kodi Souza DO, performed the procedure in its entirety. documented in this encounter Nursing Notes * Liana Ahuja TECH - 03/11/2024 10:25 AM EDT Angela Lazar to receive 10 Vabysmo 6mg Injection of the Left eye. Correct eye confirmed with patient and marked by Kodi Souza DO Vabysmo 6mg lot # [id number] Exp. Date: 01/2025 * Carmel Price RN - 03/11/2024 9:58 AM EDT Angela Lazar is a 89 year old year old female who presents for AMD OU. Last Office Visit: 12/18/2023 (in office), Visit date not found (telemedicine) Patient currently states no change in vision. Are you diabetic? Yes. Do you check your blood sugars daily? YES. Did not measure this morning. Last Hemoglobin A1C: Lab Results Component Value Date/Time HGBA1C 7.3 (H) 09/17/2023 07:26 AM HGBA1C 7.5 (H) 12/31/2022 11:20 AM HGBA1C 7.2 (H) 11/11/2022 07:45 AM HGBA1C 6.9 (H) 05/03/2020 10:41 AM HGBA1C 6.8 (H) 10/18/2019 11:31 AM HGBA1C 6.6 (H) 10/28/2018 11:[address]? no OCT image(s) of left eye acquired and filed/scanned into chart. documented in this encounter Plan of Treatment Upcoming Encounters Date Type Department Care Team (Late st Contact Info) Description 03/28/2024 7:00 AM EDT Laboratory Lab Mobile Phlebotomy [facility] [address] [place] [id number] [facility] Home Draw [address] [place] [address] 03/29/2024 6:00 AM EDT Anticoagulation [facility], Moe Mohamud [address] [place] [address] [place] [address] [facility], [address] [place] [address] 03/30/2024 10:20 AM EDT [facility] [address] [facility] [place] [address] Angeli Lee MD [address] [facility] [place] [address] 05/27/2024 2:20 PM EST Office Visit Nephrology, [facility] [address] [facility] [address] [place], [place] [address] Levy Garcia MD [address] [facility] [place], [place] [address] 06/06/2024 10:15 AM EST Office Visit Ophthalmology, [facility] [address] [place] [address] Kodi Souza DO [address] [place] [address] 09/09/2024 11:00 AM EDT Office Visit Cardiology, [facility] [address] [place] [address] Dasia Cohen CRNP [address] [place] [address] Scheduled Orders Name Type Priority Associated Diagnoses Orde r Schedule RETINA SCAN DIAGNOSTIC IMAGE, POSTERIOR Procedures Routine Exudative age-related macular degeneration of left eye with active choroidal neovascularization (HCC) Ordered: 03/11/2024 Health Maintenance Due Date Last Done Comments Adult Wellness Visit 06/07/2020 06/07/2019 Depression Screening 11/01/2021 11/01/2020 Albumin/Creatinine Ratio 08/29/2023 023, 08/20/2021, 10/28/2018, Additional history exists Diabetic Foot Exam 12/19/2023 12/18/2022, 0 11/01/2020, 11/04/2018, Additional history exists COVID-19 Vaccine ( season) 2024 04/07/2023, 11/25/2021, 11/25/2021, Additional history exists HbA1c 03/18/2024 09/17/2023, 08/0 [...] this encounter Medical Devices Implanted Type Area Employee Benefits Specialist Device Identifier Shelf Expiration Date Model / Serial / Lot Lens Intraoc 25.5 - [id number] - [id number] Implanted:Qty: 1 on 09/03/2021 by Jeffrey Rodriguez MD at [facility] Left: Eye [employer] 09/28/2025 [id number] / [id number] / [id number] Lens Intraoc 24.5 - [id number] - [id number] Implanted:Qty: 1 on 09/17/2021 by Jeffrey Rodriguez MD at [facility] Right: Eye [employer] 10/29/2025 [id number] / [id number] / [id number] documented as of this encounter Visit Diagnoses Diagnosis Exudative age-related macular degeneration of left eye with active choroidal neovascularization (HCC)- Primary documented in this encounter Administered Medications Active Administered Medications - up to 3 most recent administrations Medication Order MAR Action Action Date Dose Rate Site Faricimab-svoa (Vabysmo) intravitreal inj 6 mg 6 mg, Intravitreal, PRN Other, Starting on Thu06/30/23 at 1100, Until Thu06/29/24 at 1059, For 365 days, Each single dose vial and transfer filter needle should only be used for the treatment of a single eye. Given 03/11/2024 10:28 AM EDT 6 mg Eye Left Given 12/18/2023 10:20 AM EDT 6 mg E ye Left Given 09/17/2023 11:47 AM EDT 6 mg E ye Left ROPivacaine (Naropin) inj 1.5 mg 1.5 mg, Injection, PRN Other, Starting on Thu06/30/23 at 1100, Until Thu06/29/24 at 1059, For 365 days Given 03/11/2024 10:28 AM EDT 1.5 mg Eye Left Given 12/18/2023 10:19 AM EDT 1.5 mg E ye Left Given 09/17/2023 11:46 AM EDT 1.5 mg E ye Left documented in this encounter Care Teams Accounting Administrative Assistant Relationship Specialty Start Date End Date Angeli Lee MD [address] [place] [address] PCP - General 11/02/08 documented as of this encounter
--- OUTSIDE RECORDS SUMMARY | 2024-05-21 10:47 | External Medical Summary | Summary of Care ---
Author Name Unknown Organization [facility] Address [address] [facility] [place] [address] Phone [phone] Care Team Providers Care Senior Linux Unix Administrator Name Role Phone Angeli Lee MD Primary Care Provider + Reason for Visit * Reason Comments Dosage Adjustment Via Phone (anticoag Cl inic) Encounter Details Date Type Department Care Team (Late st Contact Info) Description 03/29/2024 6:00 AM EDT Anticoagulation Centralized Clinical Pharmacy Services, Moe Mohamud [address] [place] [address] [place] [address] [place] [address] Atrial fibrillation, unspecified type (HCC)* Allergies No known active allergiesdocumented as of this encounter (statuses as of 03/29/2024) Medications Medication Sig Dispensed Refills Start Date [...] at bedtime . Active Cholecalciferol (VITAMIN D3) 14019 units TABS Take 1 Tab by mouth [...] on Thursday, and Thursday, Reported on 01/27/2023 diphenhydrAMINE-APAP (sleep) 25-500 MG Oral Tablet Take 2 Tablets by mouth at bedtime. 11/16/2022 Active PreserVision AREDS Oral Capsule Take 1 Capsule by mouth in the morning and 1 Capsule in the evening. 11/16/2022 Active DIURETIC TITRATION PLANIndications:Kirby a, unspecified type If no improvement on day 3, contact heart failure managing provider. 1 Each 01/30/2023 Active Metoprolol Succinate ER 50 MG Oral Tablet Extended Release 24 Hour (toPROL XL)Indications:Chron ic atrial fibrillation (HCC),HTN, goal below 140/90 TAKE ONE TABLET BY MOUTH IN THE MORNING 90 Tablet 3 06/29/2023 Active Warfarin Sodium 5 MG Oral Tablet (Coumadin)Indication s:HTN, goal below 140/80,Persistent atrial fibrillation (HCC),High triglycerides,Atrial fibrillation (HCC),Dyslipidemia, goal LDL below 100 Take 1 Tablet by mouth every evening. 90 Tablet 3 06/29/2023 Active Furosemide 40 MG Oral Tablet (Lasix)Indications:H TN, goal below 140/80,Persistent atrial fibrillation (HCC),High triglycerides,Atrial fibrillation (HCC),Dyslipidemia, goal LDL below 100 TAKE 1 TABLET BY MOUTH IN THE MORNING 90 Tablet 3 07/28/2023 Active Allopurinol 300 MG Oral Tablet (Zyloprim)Indication s:Gouty arthropathy,Type 2 diabetes mellitus with hemoglobin A1c goal of less than 7.0% (HCC) TAKE 1 TABLET BY MOUTH IN THE MORNING 90 Tablet 2 07/28/2023 Active Pravastatin Sodium 40 MG Oral Tablet (Pravachol)Indicatio ns:High triglycerides,Dyslip idemia, goal LDL below 100 Take 1 Tablet by mouth at bedtime. 90 Tablet 3 08/05/2023 Active dilTIAZem HCl ER Coated Beads 120 MG Oral Capsule Extended Release 24 Hour (Cardizem CD)Indications:Persi stent atrial fibrillation (HCC) TAKE 1 CAPSULE IN THE MORNING 90 Capsule 3 08/05/2023 Active Lisinopril 10 MG Oral Tablet (Prinivil)Indication s:HTN, goal below 140/80 TAKE 1 TABLET BY MOUTH IN THE MORNING 90 Tablet 3 09/03/2023 Active glipiZIDE 5 MG Oral Tablet (Glucotrol) TAKE 1 TABLET EVERY MORNING AND 1 TABLET BEFORE BEDTIME (TAKE 30 MINUTES BEFORE MEALS). 180 Tablet 1 11/10/2023 Active Nystatin 331408 UNIT/GM External Powder (Nystop) APPLY TOPICALLY TO AFFECTED AREA 3 TIMES A DAY. APPLY FOR ABDOMINAL FOLDS TWICE A DAY NEEDED 60 g 3 01/07/2024 Active Fenofibrate 48 MG Oral Tablet (Tricor)Indications: Dyslipidemia, goal LDL below 100 Take 1 Tablet by mouth in the morning. 30 Tablet 5 02/24/2024 Active Comirnaty 30 MCG/0.3ML Intramuscular Suspension Prefilled Syringe Inject into a large muscle. 0.3 mL 03/11/2024 Active Hospital, Clinic, or Other Facility Administered [...] as of this encounter (statuses as of 03/29/2024) Active Problems Problem Noted Date Diagnosed Date Body mass index (BMI) of 45.0 to [...] 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 Overview: ICD-9 Code Update [facility] current use of anticoagulant therapy 1 07/17/2002 Anticoagulation management encounter 11/24/2001 Atrial fibrillation 05/26/2001 documented as of this encounter (statuses as of 03/29/2024) Resolved Problems Problem Noted Date Diagnosed Date [...] as of this encounter (statuses as of 03/29/2024) Immunizations Name Administration Dates Next Due COVID-19 mRNA, LNP-s, No Pre serve, 2-Dose Series ([facility]) 11/25/2021,05/14/2021,07/28/2020,10/2020 COVID-19, LNP-s, No Preserve , Joseph-sucrose, Ages 12+ (Pfizer) 11/25/2021 COVID-19, MRNA-LNP, 23-24, P F, 30 MCG/0.3 mL, 12 YRS AND ABOVE, IM ([employer]) 04/07/2023 COVID-19, MRNA-LNP, 24-25, P R, 30MCG/0.3ML, IM, 12YRS AND ABOVE ([facility]) 03/11/2024 DTaP Dipth/Tet/Acell Pertussis (Infanrix), Peds 10/31/2003 PPD 11/28/2022,11/19/2022 Pneumococcal Conjugate Vacc, 13 Valent (Prevnar) 12/24/2014 Pneumococcal Polysaccharide PPV23 (Pneumovax) 12/24/2014 RSV Vac., Bivalent, Perfusio n F, Pf,0.5 Ml (Abrysvo) 04/21/2023 Season Influenza, Quad, PF, Adjuvanted, 65+ Yrs, IM (FLUAD) 02/08/2020 Seasonal Influenza Vac., MDV , IM, 0.5 mL (Fluzone) 02/16/2014,03/17/2013,03/05/2012,01/31,03/19/2010,03/07/2009,03/15/20 08,03/16/2007,03/25/2006 03/07/2010 Seasonal Influenza Virus Vac cine, Unspecified Formulation 02/08/2020,03/03/2019,04/06/2018,11/0 11/2016,02/14/2016,03/15/2015,02/17/20 14,03/17/2013,03/05/2012,02/27/2011,1 ,03/07/2009,03/15/2008,03/16,03/25/2006,03/31/2005, 4,04/13/2003,05/21/2000 Seasonal Influenza, High [...] as of this encounter Progress Notes * ImGracy gabriel L, biodiesel production technician - 03/29/2024 10:05 AM EDT Contacts Contact Date/Time Type Contact Phone/Fax 03/29/2024 10:03 AM EDT Phone (Outgoing) GIANFRANCO JAQUEZA (Emergency Contact) [phone] (M) Spoke with Paloma. Subjective Patient Findings Negatives: Signs/symptoms of bleeding, Change in health, Change in activity, Upcoming invasive procedure, Missed doses, Extra doses, Change in medications, Change in diet/appetite, Bruising Advised patient to contact Anticoagulation Clinic if any unusual bruising or bleeding, recent illness, changes in medication, or questions/concerns. PT/INR results, Coumadin dose instructions, and next PT/INR date communicated as noted by Pharmacist: ADRIANA Benz 03/29/2024, 10:05 AM * Diana Whitehead RPh - 03/29/2024 8:07 AM EDT Coumadin Clinic (region specific) Objective Current Warfarin Dose As of 03/29/2024 Warfarin maintenance plan: 0 mg every Mon; 2.5 mg (5 mg x 0.5) all other days INR Result As of 03/29/2024 INR goal: 2.0-3.0 INR used for dosin.3 (03/28/2024) Assessment & Plan Warfarin Plan As of 03/29/2024 Full warfarin instructions: 0 mg every Mon; 2.5 mg all other days No change documented: Diana Whitehead RPh Next INR check: 04/25/2024 Repeat PT/INR in 4 week(s) Weekly dose: not changed Additional Dosing Information: Description GM M// Tech to contact patient with dose instructions as noted. Diana Whitehead RPh 03/29/2024, 8:07 AM documented in this encounter Plan of Treatment Upcoming Encounters Date Type Department Care Team ([facility] Contact Info) Description 03/30/2024 10:20 AM EDT Office Visit General Internal Medicine [facility] [address] [facility] [place] [address] Angeli Lee MD [address] [facility] [place] [address] 04/25/2024 7:00 AM EST Laboratory Lab Mobile Phlebotomy [facility] [address] [facility] [place] [address] Mvmg, Gml Mobile Home Draw [address] [employer] [facility] [place] [address] 04/26/2024 6:00 AM EST Anticoagulation Centralized Clinical Pharmacy Services, [place] Mohamud [address] [place] [address] [place] [address] [facility], [address] [place] [address] 05/27/2024 2:20 PM EST Office Visit Nephrology, [facility] [address] [facility] [place] [address] Levy Garcia MD [address] [facility] [place] [address] 06/06/2024 10:15 AM EST Office Visit Ophthalmology, [facility] [address] [place] [address] Kodi Souza, [address] [place] [address] 09/02/2024 10:00 AM EDT Office Visit Cardiology, [facility] [address] [place] [address] Dasia Cohen CRNP [address] [place] [address] Health Maintenance Due Date Last Done Comments [...] this encounter Medical Devices Implanted Type Area Speaker Wirer Device Identifier Shelf Expiration Date Model / Serial / Lot Lens Intraoc 25.5 - [id number] - [id number] Implanted:Qty: 1 on 09/03/2021 by Jeffrey Rodriguez MD at OR [facility] Left: Eye [employer]USCH [employer]OMB 09/28/2025 [id number] / [id number] Lens Intraoc 24.5 - [id number] - [id number] Implanted:Qty: 1 on 09/17/2021 by Jeffrey Rodriguez MD at OR [facility] Right: Eye BAUSCH [employer] LOMB 10/29/2025 [id number] / [id number] / [id number] documented as of this encounter Visit Diagnoses Diagnosis Atrial fibrillation, unspecified type (HCC)- Primary documented in this encounter Care Teams Senior Linux Unix Administrator Relationship Specialty Start Date End Date Angeli Lee MD [address] [place] [address] PCP - General 11/02/08 documented as of this encounter
--- OUTSIDE RECORDS SUMMARY | 2024-05-21 10:47 | External Medical Summary ---
Author Name Unknown Address Unknown Organization K0G:[facility] [address] [place] [address] Laboratory Report Ordering Provider Test Date Status CHANOMICHAEL 03/07/2024 07:17:00 Final Standing order for pt/inr. < br/>Please draw pt/inr every 1 to 4 weeks as requested
Results to [facility]

Warfarin Therapy
INR: 2.0-3.0 conventional anticoagulation
INR: 2.5-3.5 high intensity anticoagulation Observation Date Value Abnormality Reference (Units ) Status PT 03/07/2024 07:17:00 24.1 Above high normal 11 .6-15.2 (seconds) Final INR 03/07/2024 07:17:00 2.1 Above high normal 0. 8-1.2 Final Performing Location [facility] [address] [place] [address]
--- OUTSIDE RECORDS SUMMARY | 2024-05-21 10:47 | External Medical Summary | Summary of Care ---
Author Name Unknown Organization [facility] Address [address] [place] [facility] [place] [address] Phone [phone] Care Team Providers Care Chief Technology Officer Name Role Phone Angeli Lee MD Primary Care Provider + Reason for Visit * Reason Comments eRx-Medication Refill Encounter Details Date Type Department Care Team (Late st Contact Info) Description 03/28/2024 Refill Cardiology, [facility] [address] [facility] [place] [id number] Dasia Quigley CRNP [address] [place] [address] Chronic atrial fibrillation (HCC); HTN, goal below 140/90 Allergies No known active allergiesdocumented as of this encounter (statuses as of 03/30/2024) Medications Medication Sig Dispensed Refills Start Date End Date Status GLUCOMETER ELITE CLASSIC KITIndications:DM type 2, goal A1c below 7 check sugar 2-3 times a week. one 0 06/16/2007 Active FREESTYLE LITE STRPIndications:D M type 2, goal A1c below 7 check sugars tid 1 11 12/01/2007 Active FREESTYLE LANCETS MISCIndications:D M type 2, goal A1c below 7 check blood sugars 3 times daily 1 box 11 04/17/2008 Active ASPIRIN 81 MG PO TBEC Take by mouth at bedtime . Active Cholecalciferol (VITAMIN D3) 64819 units TABS Take 1 Tab by mouth [...] on Thursday, and Thursday, Reported on 01/27/2023 diphenhydrAMINE-A PAP (sleep) 25-500 MG Oral Tablet Take 2 Tablets by mouth at bedtime. 11/16/2022 Active PreserVision AREDS Oral Capsule Take 1 Capsule by mouth in the morning and 1 Capsule in the evening. 11/16/2022 Active DIURETIC TITRATION PLANIndications:E juanpablo, unspecified type If no improvement on day 3, contact heart failure managing provider. 1 Each 01/30/2023 Active Warfarin Sodium 5 MG Oral Tablet (Coumadin)Indicat ions:HTN, goal below 140/80,Persistent atrial fibrillation (HCC),High triglycerides,Atr ial fibrillation (HCC),Dyslipidemi a, goal LDL below 100 Take 1 Tablet by mouth every evening. 90 Tablet 3 06/29/2023 Active Furosemide 40 MG Oral Tablet (Lasix)Indication s:HTN, goal below 140/80,Persistent atrial fibrillation (HCC),High triglycerides,Atr ial fibrillation (HCC),Dyslipidemi a, goal LDL below 100 TAKE 1 TABLET BY MOUTH IN THE MORNING 90 Tablet 3 07/28/2023 Active Allopurinol 300 MG Oral Tablet (Zyloprim)Indicat ions:Gouty arthropathy,Type 2 diabetes mellitus with hemoglobin A1c goal of less than 7.0% ([facility]) TAKE 1 TABLET BY MOUTH IN THE MORNING 90 Tablet 2 07/28/2023 Active Pravastatin Sodium 40 MG Oral Tablet (Pravachol)Indica tions:High triglycerides,Dys lipidemia, goal LDL below 100 Take 1 Tablet by mouth at bedtime. 90 Tablet 3 08/05/2023 Active dilTIAZem HCl ER Coated Beads 120 MG Oral Capsule Extended Release 24 Hour (Cardizem CD)Indications:Pe rsistent atrial fibrillation (HCC) TAKE 1 CAPSULE IN THE MORNING 90 Capsule 3 08/05/2023 Active Lisinopril 10 MG Oral Tablet (Prinivil)Indicat ions:HTN, goal below 140/80 TAKE 1 TABLET BY MOUTH IN THE MORNING 90 Tablet 3 09/03/2023 Active glipiZIDE 5 MG Oral Tablet (Glucotrol) TAKE 1 TABLET EVERY MORNING AND 1 TABLET BEFORE BEDTIME (TAKE 30 MINUTES BEFORE MEALS). 180 Tablet 1 11/10/2023 Active Nystatin 029129 UNIT/GM External Powder (Nystop) APPLY TOPICALLY TO AFFECTED AREA 3 TIMES A DAY. APPLY FOR ABDOMINAL FOLDS TWICE A DAY NEEDED 60 g 3 01/07/2024 Active Fenofibrate 48 MG Oral Tablet (Tricor)Indicatio ns:Dyslipidemia, goal LDL below 100 Take 1 Tablet by mouth in the morning. 30 Tablet 5 02/24/2024 Active Metoprolol Succinate ER 50 MG Oral Tablet Extended Release 24 Hour (toPROL XL)Indications:Ch ronic atrial fibrillation (HCC),HTN, goal below 140/90 TAKE ONE TABLET BY MOUTH IN THE MORNING 90 Tablet 1 03/30/2024 Active Metoprolol Succinate ER 50 MG Oral Tablet Extended Release 24 Hour (toPROL XL)Indications:Ch ronic atrial fibrillation (HCC),HTN, goal below 140/90 TAKE ONE TABLET BY MOUTH IN THE MORNING 90 Tablet 3 06/29/2023 03/30/20 24 Discontinued Hospital, Clinic, or Other Facility Administered Medication Ordered Dose Route Frequency Start Date End Date Status Farzachmab-svoa (Vabysmo) intravitreal inj 6 mgIndications:Exudative age-related macular [...] 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 Overview: ICD-9 Code Update snf current use of anticoagulant therapy 1 07/17/2002 [...] mRNA, LNP-s, No Pre serve, 2-Dose Series ([employer]) 11/25/2021,05/14/2021,07/28/2020,10/2020 COVID-19, LNP-s, No Preserve , Joseph-sucrose, Ages 12+ ([employer]) 11/25/2021 COVID-19, MRNA-LNP, 23-24, P F, 30 MCG/0.3 mL, 12 YRS AND ABOVE, IM ([employer]) 04/07/2023 COVID-19, MRNA-LNP, 24-25, P R, 30MCG/0.3ML, IM, 12YRS AND ABOVE ([employer]) 03/11/2024 DTaP Dipth/Tet/Acell Pertussis (Infanrix), Peds 10/31/2003 [...] encounter Miscellaneous Notes * Telephone Encounter - Merlin Dumont [facility] - 03/30/2024 11:54 AM EDT Signed Prescriptions: Disp Refills Metoprolol Succinate ER 50 MG Oral Tablet *90 Tab*1 Sig: TAKE ONE TABLET BY MOUTH IN THE MORNINGAuthorizing Provider: DASIA QUIGLEY User: MERLIN DUMONT documented in this encounter Plan of Treatment Upcoming Encounters Date Type Department Care Team (Late st Contact Info) Description 04/25/2024 7:00 AM EST Laboratory Lab Mobile Phlebotomy [facility] [address] [place] [address] Mvmg, Gml Mobile Home Draw [address] [place] [address] 04/26/2024 6:00 AM EST Anticoagulation Centralized Clinical Pharmacy Services, Moe Mohamud [address] [place] [address] [place] [address] [facility] [place] [address] 05/27/2024 2:20 PM EST Office Visit Nephrology, [facility]ad[facility] Hassan [address] [place] [address] Levy Garcia MD [address] [place] [address] 06/06/2024 10:15 AM EST Office Visit Ophthalmology, [facility] [address] [place] [address] Kodi Souza DO [address] [place] [address] 09/02/2024 10:00 AM EDT Office Visit Cardiology, [facility] [address] [place] [address] Dasia Quigley CRNP [address] [place] [address] 09/29/2024 9:20 AM EDT Office Visit General Internal Medicine [facility] [address] [place] [address] Angeli Lee MD [address] [facility] [place] [address] Health Maintenance Due Date Last Done Comments Adult Wellness Visit 06/07/2020 06/07/2019 Depression Screening 11/01/2021 11/01/2020 Albumin/Creatinine Ratio 08/29/2023 023, 08/20/2021, 10/28/2018, Additional history exists Diabetic Foot Exam 12/19/2023 12/18/2022, 0 11/01/2020, 11/04/2018, Additional history exists Nephrology Referral 09/07/2024 09/08/2023, [...] this encounter Medical Devices Implanted Type Area Microsoft Exchange Architect Device Identifier Shelf Expiration Date Model / Serial / Lot Lens Intraoc 25.5 - [id number] - [id number] Implanted:Qty: 1 on 09/03/2021 by Jeffrey Rodriguez MD at OR [facility] Left: Eye BAUSCH [employer] LOMB 09/28/2025 [id number] / [id number] / [id number] Lens Intraoc 24.5 - [id number] - [id number] Implanted:Qty: 1 on 09/17/2021 by Jeffrey Rodriguez MD at OR [facility] Right: Eye BAUSCH & LOMB 10/29/2025 [id number] / [id number] / [id number] documented as of this encounter Visit Diagnoses Diagnosis Chronic atrial fibrillation (HCC) Atrial fibrillation HTN, goal below 140/90 Unspecified essential hypertension documented in this encounter Care Teams Chief Technology Officer Relationship Specialty Start Date End Date Angeli Lee MD [address] [facility] [place] [address] PCP - General 11/02/08 documented as of this encounter
--- OUTSIDE RECORDS SUMMARY | 2024-05-21 10:47 | External Medical Summary | Summary of Care ---
Author Name Unknown Organization [facility] Address [address] [place] [address] Phone [phone] Care Team Providers Care Television Tube Inspector Name Role Phone Angeli Lee MD Primary Care Provider + Reason for Visit * Reason Onset Date Comments Advice 04/05/2024 Encounter Details Date Type Department Care Team (Late st Contact Info) Description 04/05/2024 Telephone General Internal Medicine [facility] [address] [facility] [place] [address] Angeli Lee MD [address] [place] [address] Advice Allergies No known active allergiesdocumented as of this encounter (statuses as of 04/12/2024) Medications GLUCOMETER ELITE CLASSIC KITIndications:D M type [...] at bedtime . Active Cholecalciferol (VITAMIN D3) 41686 units TABS Take 1 Tab by mouth [...] MEALS). 180 Tablet 1 4 Active Nystatin 837729 UNIT/GM External Powder (Nystop) APPLY TOPICALLY TO [...] THE MORNING 90 Tablet 1 4 Active Hospital, Clinic, or Other Facility [...] as of this encounter (statuses as of 04/12/2024) Active Problems Problem Noted Date Diagnosed Date [...] arthropathy 03/15/2009 Overview (03/15/2009): ICD-9 Code Update senior care current use of anticoagulant therapy 1 07/17/2002 Anticoagulation management encounter 11/24/2001 Atrial fibrillation 05/26/2001 documented as of this encounter (statuses as of 04/12/2024) Resolved Problems Problem Noted Date Diagnosed Date [...] as of this encounter (statuses as of 04/12/2024) Immunizations Name Administration Dates Next Due COVID-19 mRNA, LNP-s, No Pre serve, 2-Dose Series ([employer]) 11/25/2021,05/14/2021,07/28/2020,10/2020 COVID-19, LNP-s, No Preserve , Joseph-sucrose, Ages 12+ ([employer]) 11/25/2021 COVID-19, MRNA-LNP, 24-25, P R, 30MCG/0.3ML, IM, 12YRS AND ABOVE ([employer]) 03/11/2024 COVID-19, MRNA-LNP, PF, 30 M CG/0.3 mL, 12 YRS AND ABOVE, IM ([employer]) 04/07/2023 DTaP Dipth/Tet/Acell Pertussis (Infanrix), Peds 10/31/2003 [...] encounter Miscellaneous Notes * Telephone Encounter - Jeri Rowan, RIOS - 04/12/2024 5:03 PM EST Called and spoke with pt's daughter - states that she received a text directing her to check pt's Mychart because the provider wanted her to schedule an appt. Checked messages in MyChart, the only thing I could find was for cardiac rehab which they decline at this time * Telephone Encounter - Melida Campos OSA - 04/05/2024 3:03 PM EST Patient daughter calling stating that she received an email from [employer] to set up an appointment, but she is asking what the appointment would be for. The email did not specify and she says she never received an email like that. documented in this encounter Plan of Treatment Upcoming Encounters Date Type Department Care Team (Late st Contact Info) Description 04/25/2024 7:00 AM EST Laboratory Lab Mobile Phlebotomy [facility] [address] [place] [address] Mvmg, Gml Mobile Home Draw [address] [facility] [place] [address] 04/26/2024 6:00 AM EST Anticoagulation Centralized Clinical Pharmacy Services, [address] [place] [address] [place] [address] 05/27/2024 2:20 PM EST Office Visit Nephrology, Yadira Hassan [address] [place] [address] Levy Garcia MD [address] [place] [address] 06/06/2024 10:15 AM EST Office Visit Ophthalmology, [facility] [address] [place] [address] Kodi Souza, [address] [place] [address] 09/02/2024 10:00 AM EDT Office Visit Cardiology, [facility] [address] [place] [address] Dasia Cohen CRNP [address] [place] [address] 09/29/2024 9:20 AM EDT Office Visit General Internal Medicine [facility] [place] [address] [place] [address] Angeli Lee MD [address] [place] [address] Health Maintenance Due Date Last Done Comments [...] this encounter Medical Devices Implanted Type Area Director Digital Sales Device Identifier Shelf Expiration Date Model / Serial / Lot Lens Intraoc 25.5 - [id number] - [id number] Implanted:Qty: 1 on 09/03/2021 by Jeffrey Rodriguez MD at OR [facility] Left: Eye BAUSCH [employer] LOMB 09/28/2025 [id number] / [id number] / [id number] Lens Intraoc 24.5 - [id number] - [id number] Implanted:Qty: 1 on 09/17/2021 by Jeffrey Rodriguez MD at OR [facility] Right: Eye BAUSCH [employer] LOMB 10/29/2025 [id number] / [id number] / [id number] documented as of this encounter Care Teams Television Tube Inspector Relationship Specialty Start Date End Date Angeli Lee MD 200 [place] [address] PCP - General 11/02/08 documented as of this encounter
--- OUTSIDE RECORDS SUMMARY | 2024-05-21 10:47 | External Medical Summary | Summary of Care ---
Author Name Unknown Organization [facility] Address [address] [facility] [address] Phone [phone] Care Team Providers Care Supervisor Television Chassis Repair Name Role Phone Angeli Lee MD Primary Care Provider + Reason for Visit * Reason Comments eRx-Medication Refill Encounter Details Date Type Department Care Team (Late st Contact Info) Description 04/12/2024 Refill Cardiology, [facility] 132 [facility] [place] [address] Dhaval Gonsales MD 132 [facility] [place] [address] Allergies No known active allergiesdocumented as of this encounter (statuses as of 04/13/2024) Medications GLUCOMETER ELITE CLASSIC KITIndications:D M type [...] at bedtime . Active Cholecalciferol (VITAMIN D3) 55584 units TABS Take 1 Tab by mouth [...] MEALS). 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 1 07/17/2002 Anticoagulation management encounter 11/24/2001 Atrial fibrillation 05/26/2001 documented as of this encounter (statuses as of 04/13/2024) Resolved Problems Problem Noted Date Diagnosed Date [...] as of this encounter (statuses as of 04/13/2024) Immunizations Name Administration Dates Next Due COVID-19 mRNA, LNP-s, No Pre serve, 2-Dose Series (TempoIQ) 11/25/2021,05/14/2021,07/28/2020,10/2020 COVID-19, LNP-s, No Preserve , Joseph-sucrose, Ages 12+ (TempoIQ) 11/25/2021 COVID-19, MRNA-LNP, 24-25, P R, 30MCG/0.3ML, IM, 12YRS AND ABOVE (TempoIQ-EcoloCapirnatGet-n-Post) 03/11/2024 COVID-19, MRNA-LNP, PF, 30 M CG/0.3 mL, 12 YRS AND ABOVE, IM (Bueroservice24) 04/07/2023 DTaP Dipth/Tet/Acell Pertussis (Infanrix), Peds 10/31/2003 [...] Miscellaneous Notes * Telephone Encounter - Merlin Dumont, [facility] - 04/13/2024 2:43 PM EST Refused Prescriptions: Disp Refills Digoxin 125 MCG Oral Tablet (Lanoxin) 34 Tab*11 Sig: TAKE 1 TABLET BY MOUTH EVERY MORNINGRefused By: MERLIN DUMONT for Refusal: Duplicate Request------- documented in this encounter Plan of Treatment Upcoming Encounters Date Type Department Care Team (Late st Contact Info) Description 04/25/2024 7:00 AM EST Laboratory Lab Mobile Phlebotomy [facility] [address] [facility] [place] [address] Mvmg, Gml Mobile Home Draw [address] [facility] [place] [address] 04/26/2024 6:00 AM EST Anticoagulation Centralized Clinical Pharmacy Services, [place]arr [address] [place] [address] [place] [address] 05/27/2024 2:20 PM EST Office Visit Nephrology, [facility] [address] [place] [address] [address] Levy Garcia MD [address] [place] [address] [address] [address] 06/06/2024 10:15 AM EST Office Visit Ophthalmology, [facility] [address] [place] [address] Kodi Souza, 132 [place] [address] 09/02/2024 10:00 AM EDT Office Visit Cardiology, [facility] [address] [place] [address] Dasia Cohen CRNP [address] [place] [address] 09/29/2024 9:20 AM EDT Office Visit General Internal Medicine Yadira Hassan [place] [address] [place] [address] Angeli Lee MD [address] [place] [address] Health Maintenance Due Date Last Done Comments [...] this encounter Medical Devices Implanted Type Area Structures Mechanic Device Identifier Shelf Expiration Date Model / Serial / Lot Lens Intraoc 25.5 - [id number] - [id number] Implanted:Qty: 1 on 09/03/2021 by Jeffrey Rodriguez MD at OR [facility] Left: Eye BAUSCH & LOMB 09/28/2025 [id number] / [id number] / [id number] Lens Intraoc 24.5 - [id number] - [id number] Implanted:Qty: 1 on 09/17/2021 by Jeffrey Rodriguez MD at OR [facility] Right: Eye BAUSCH & LOMB 10/29/2025 [id number] / [id number] / [id number] documented as of this encounter Care Teams Supervisor Television Chassis Repair Relationship Specialty Start Date End Date Angeli Lee MD 200 [facility] [place] [address] PCP - General 11/02/08 documented as of this encounter
--- OUTSIDE RECORDS SUMMARY | 2024-05-21 10:47 | External Medical Summary | Summary of Care ---
Author Name Unknown Organization [facility] Address [address] [facility] [place] [address] Phone [phone] Care Team Providers Care Bleach Maker Name Role Phone Angeli Lee MD Primary Care Provider + Encounter Details Date Type Department Care Team (Late st Contact Info) Description 04/05/2024 Orders Only PATIENT PORTAL DO NOT DELETE THIS DEPT USED BY [place] [address] Allergies No known active allergiesdocumented as of this encounter (statuses as of 04/05/2024) Medications Medication Sig Dispensed Refills Start Date [...] at bedtime . Active Cholecalciferol (VITAMIN D3) 48340 units TABS Take 1 Tab by mouth [...] MEALS). 180 Tablet 1 11/10/2023 Active Nystatin 386257 UNIT/GM External Powder (Nystop) APPLY TOPICALLY TO AFFECTED AREA 3 TIMES A DAY. APPLY FOR ABDOMINAL FOLDS TWICE A DAY NEEDED 60 g 3 01/07/2024 Active Fenofibrate 48 MG Oral Tablet (Tricor)Indications :Dyslipidemia, goal LDL below 100 Take 1 Tablet by mouth in the morning. 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 1 07/17/2002 Anticoagulation management encounter 11/24/2001 Atrial fibrillation 05/26/2001 documented as of this encounter (statuses as of 04/05/2024) Resolved Problems Problem Noted Date Diagnosed Date [...] as of this encounter (statuses as of 04/05/2024) Immunizations Name Administration Dates Next Due COVID-19 mRNA, LNP-s, No Pre serve, 2-Dose Series ([employer]) 11/25/2021,05/14/2021,07/28/2020,0210/2020 COVID-19, LNP-s, No Preserve , Joseph-sucrose, Ages 12+ ([employer] Tea) 11/25/2021 COVID-19, MRNA-LNP, 24-25, P R, 30MCG/0.3ML, IM, 12YRS AND ABOVE (Pfizer-Comirnaty) 03/11/2024 COVID-19, MRNA-LNP, PF, 30 M CG/0.3 mL, 12 YRS AND ABOVE, IM (PFIZER-Comirnaty) [...] on file documented as of this encounter Plan of Treatment Upcoming Encounters Date Type Department Care Team (Late st Contact Info) Description 04/25/2024 7:00 AM EST Laboratory Lab Mobile Phlebotomy [facility] [address] [place] [address] Mvmg, Gml Mobile Home Draw [address] [place] [address] 04/26/2024 6:00 AM EST Anticoagulation Centralized Clinical Pharmacy Services, Moe Mohamud [address] [place] [address] [place] [address] [facility], [address] [place] [address] 05/27/2024 2:20 PM EST Office Visit Nephrology, [facility] [address] [place] [address] [address] [address] Levy Garcia MD [address] [place] [address] [address] 06/06/2024 10:15 AM EST Office Visit Ophthalmology, [facility] [address] [place] [address] Kodi Souza DO [address] [place] [address] 09/02/2024 10:00 AM EDT Office Visit Cardiology, [facility] [place] [address] Dasia Cohen CRNP [address] [place] [address] 09/29/2024 9:20 AM EDT Office Visit General Internal Medicine [facility] [place] [address] [place] [address] Angeli Lee MD [address] [place] [address] Health Maintenance Due Date Last Done Comments [...] this encounter Medical Devices Implanted Type Area Poultry Cleaner Device Identifier Shelf Expiration Date Model / Serial / Lot Lens Intraoc 25.5 - [id number] - [id number] Implanted:Qty: 1 on 09/03/2021 by Jeffrey Rodriguez MD at OR [facility] Left: Eye BAUSCH & LOMB 09/28/2025 [id number] / [id number] / [id number] Lens Intraoc 24.5 - [id number] - [id number] Implanted:Qty: 1 on 09/17/2021 by Jeffrey Rodriguez MD at OR [facility] Right: Eye BAUSCH & LOMB 10/29/2025 [id number] / [id number] / [id number] documented as of this encounter Care Teams Bleach Maker Relationship Specialty Start Date End Date Angeli Lee MD 200 [place] [address] PCP - General 11/02/08 documented as of this encounter
--- OUTSIDE RECORDS SUMMARY | 2024-05-21 10:47 | External Medical Summary | Summary of Care ---
Author Name Unknown Organization [facility] Address [address] [facility] [place] [address] Phone [phone] Care Team Providers Care Food Service Order Clerk Name Role Phone Angeli Lee MD Primary Care Provider + Reason for Visit * Reason Comments Dosage Adjustment Via Phone (anticoag Cl inic) Encounter Details Date Type Department Care Team (Late st Contact Info) Description 03/08/2024 6:00 AM EDT Anticoagulation Centralized Clinical Pharmacy Services, Moe Mohamud [address] [place] [address] [place] [address] [place] [address] Atrial fibrillation, unspecified type (HCC)* Allergies No known active allergiesdocumented as of this encounter (statuses as of 03/08/2024) Medications Medication Sig Dispensed Refills Start Date [...] at bedtime . Active Cholecalciferol (VITAMIN D3) 78625 units TABS Take 1 Tab by mouth [...] Oral Tablet Extended Release 24 Hour (toPROL XL)Indications:Fitness Club Manager jose atrial fibrillation (HCC),HTN, goal below 140/90 [...] MEALS). 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 Overview: ICD-9 Code Update FDC current use of anticoagulant therapy 1 07/17/2002 Anticoagulation management encounter 11/24/2001 Atrial fibrillation 05/26/2001 documented as of this encounter (statuses as of 03/08/2024) Resolved Problems Problem Noted Date Diagnosed Date [...] as of this encounter (statuses as of 03/08/2024) Immunizations Name Administration Dates Next Due COVID-19 mRNA, LNP-s, No Pre serve, 2-Dose Series (PA Semi) 11/25/2021,05/14/2021,07/28/2020,10/2020 COVID-19, LNP-s, No Preserve , Joseph-sucrose, Ages 12+ (PA Semi) 11/25/2021 COVID-19, MRNA-LNP, 23-24, P F, 30 MCG/0.3 mL, 12 YRS AND ABOVE, IM ([facility]) 04/07/2023 DTaP Dipth/Tet/Acell Pertussis (Infanrix), Peds 10/31/2003 [...] as of this encounter Progress Notes * Concepcion Pinto, [facility] - 03/08/2024 9:34 AM EDT Contacts Contact Date/Time Type Contact Phone/Fax 03/08/2024 09:33 AM EDT Phone (Outgoing) PALOMA JAQUEZ (Emergency Contact) [phone] (M) Spoke to Patient Subjective Patient Findings Negatives: Signs/symptoms of thrombosis, Signs/symptoms of bleeding, Change in health, Change in alcohol use, Change in activity, Upcoming invasive procedure, Missed doses, Extra doses, Change in medications, Change in diet/appetite, Bruising Advised patient to contact Anticoagulation Clinic if any unusual bruising or bleeding, recent illness, changes in medication, or questions/concerns. PT/INR results, Coumadin dose instructions, and next PT/INR date communicated as noted by Pharmacist: Yes CONCEPCION PINTO CPhT 03/08/2024, 9:34 AM * Diana Whitehead RPh - 03/08/2024 8:42 AM EDT Coumadin Clinic (region specific) Objective Current Warfarin Dose As of 03/08/2024 Warfarin maintenance plan: 0 mg every Mon; 2.5 mg (5 mg x 0.5) all other days INR Result As of 03/08/2024 INR goal: 2.0-3.0 INR used for dosin.1 (03/07/2024) Assessment & Plan Warfarin Plan As of 03/08/2024 Full warfarin instructions: 0 mg every Mon; 2.5 mg all other days No change documented: Diana Whitehead RPh Next INR check: 03/28/2024 Repeat PT/INR in 3 week(s) Weekly dose: not changed Additional Dosing Information: Description GML M// Tech to contact patient with dose instructions as noted. Diana Whitehead RPh 03/08/2024, 8:42 AM documented in this encounter Plan of Treatment Upcoming Encounters Date Type Department Care Team (Late st Contact Info) Description 03/11/2024 10:15 AM EDT Office Visit Ophthalmology, [facility] [address] [place] [address] Kodi Souza, 132 [place] [address] 03/11/2024 10:45 AM EDT Immunization [facility] [address] [place] [address] Monica Ramirez [facility] [address] [place] [address] 03/30/2024 10:20 AM EDT Office Visit General Internal Medicine [facility] 200 [facility] [place] [address] Angeli Lee MD 200 [facility] [place] [address] 05/27/2024 2:20 PM EST Office Visit Nephrology, [facility] 200 [facility] [place] [address] Levy Garcia MD 200 [facility] [place], [place] [address] 09/09/2024 11:00 AM EDT Office Visit Cardiology, [facility] [address] [place] [address] Dasia Cohen CRNP [address] [place] [address] Health Maintenance Due Date Last Done Comments [...] this encounter Medical Devices Implanted Type Area Head Of History Device Identifier Shelf Expiration Date Model / Serial / Lot Lens Intraoc 25.5 - [id number] - [id number] Implanted:Qty: 1 on 09/03/2021 by Jeffrey Rodriguez MD at [facility] Left: Eye BAUSCH & LOMB 09/28/2025 [id number] / [id number] / [id number] Lens Intraoc 24.5 - [id number] - [id number] Implanted:Qty: 1 on 09/17/2021 by Jeffrey Rodriguez MD at OR [facility] Right: Eye BAUSCH & LOMB 10/29/2025 [id number] / [id number] / [id number] documented as of this encounter Visit Diagnoses Diagnosis Atrial fibrillation, unspecified type (HCC)- Primary documented in this encounter Care Teams Food Service Order Clerk Relationship Specialty Start Date End Date Angeli Lee MD [address] [place] [address], [place] [address] PCP - General 11/02/08 documented as of this encounter
--- OUTSIDE RECORDS SUMMARY | 2024-05-21 10:47 | External Medical Summary | Summary of Care ---
Author Name Unknown Organization [facility] Address [address] [place] [address] Phone [phone] Care Team Providers Care Feather Curling Machine Operator Name Role Phone Angeli Lee MD Primary Care Provider + Reason for Visit * Reason Onset Date Comments MyCode Nonconsent - Not interested at this time 03/30/2024 Encounter Details Date Type Department Care Team (Late st Contact Info) Description 03/30/2024 Orders Only Outcomes Research Department [address] [place] [address] Pino Yoo CHRA MyCode Nonconsent Documentation Allergies No known active allergiesdocumented as of [...] at bedtime . Active Cholecalciferol (VITAMIN D3) 26788 units TABS Take 1 Tab by mouth [...] MEALS). 180 Tablet 1 4 Active Nystatin 811887 UNIT/GM External Powder (Nystop) APPLY TOPICALLY TO [...] mRNA, LNP-s, No Pre serve, 2-Dose Series (Wayger) 11/25/2021,05/14/2021,07/28/2020,0210/2020 COVID-19, LNP-s, No Preserve , Joseph-sucrose, Ages 12+ (Wayger) 11/25/2021 COVID-19, MRNA-LNP, 23-24, P F, 30 MCG/0.3 mL, 12 YRS AND ABOVE, IM (PFIZER-Comirnaty) 04/07/2023 COVID-19, MRNA-LNP, 24-25, P R, 30MCG/0.3ML, IM, 12YRS AND ABOVE (Pfizer-Comirnaty) 03/11/2024 DTaP Dipth/Tet/Acell Pertussis (Infanrix), Peds 10/31/2003 [...] as of this encounter Progress Notes * Pino Yoo CHRA - 03/30/2024 10:06 AM EDT MyCode Nonconsent Documentation Angela Lazar was approached in the clinic regarding participation in the MyCode Project and didnot consent. documented in this encounter Plan of Treatment Upcoming Encounters Date Type Department Care Team (Late st Contact Info) Description 04/25/2024 7:00 AM EST Laboratory Lab Mobile Phlebotomy [facility] [address] [employer] [facility] [place] [address] Mvmg, Gml Mobile Home Draw [address] [place] [address] 04/26/2024 6:00 AM EST Anticoagulation Centralized Clinical Pharmacy Services, Moe Mohamud [address] [place] [address] [place] [address] [place] [address] 05/27/2024 2:20 PM EST Office Visit Nephrology, [facility] [address] [place] [address] Levy Garcia MD 200 [facility] [place] [address] 06/06/2024 10:15 AM EST Office Visit Ophthalmology, [facility] [address] [place] [address] Kodi Souza, [address] [place] [address] 09/02/2024 10:00 AM EDT Office Visit Cardiology, [facility] [address] [place] [address] Dasia Cohen CRNP [address] [place] [address] Health Maintenance Due Date Last Done Comments [...] this encounter Medical Devices Implanted Type Area Oil Winterizer Device Identifier Shelf Expiration Date Model / Serial / Lot Lens Intraoc 25.5 - [id number] - [id number] Implanted:Qty: 1 on 09/03/2021 by Jeffrey Rodriguez MD at OR [facility] Left: Eye BAUSCH & LOMB 09/28/2025 [id number] / [id number] / [id number] Lens Intraoc 24.5 - [id number] - [id number] Implanted:Qty: 1 on 09/17/2021 by Jeffrey Rodriguez MD at OR [facility] Right: Eye BAUSCH & LOMB 10/29/2025 [id number] / [id number] / [id number] documented as of this encounter Care Teams Feather Curling Machine Operator Relationship Specialty Start Date End Date Angeli Lee MD 200 [place] [address] PCP - General 11/02/08 documented as of this encounter
--- OUTSIDE RECORDS SUMMARY | 2024-05-21 10:47 | External Medical Summary ---
Author Name Unknown Address Unknown Organization K0G[facility] [address] [place] [address] Laboratory Report Ordering Provider Test Date Status MICHAEL MADDEN 03/28/2024 07:09:00 Final Standing order for pt/inr. < br/>Please draw pt/inr every 1 to 4 weeks as requested
Results to [facility]

Warfarin Therapy
INR: 2.0-3.0 conventional anticoagulation
INR: 2.5-3.5 high intensity anticoagulation Observation Date Value Abnormality Reference (Units ) Status PT 03/28/2024 07:09:00 25.5 Above high normal 11 .6-15.2 (seconds) Final INR 03/28/2024 07:09:00 2.3 Above high normal 0. 8-1.2 Final Performing Location [facility] [place] [address]
--- OUTSIDE RECORDS SUMMARY | 2024-05-21 10:47 | External Medical Summary | Summary of Care ---
Author Name Unknown Organization [facility] Address [address] [place] [address] Phone [phone] Care Team Providers Care Preflight Mechanic Name Role Phone Angeli Lee MD Primary Care Provider + Reason for Visit * Reason Comments Follow Up Encounter Details Date Type Department Care Team (Latest Contact Info) Description 03/30/2024 10:20 AM EDT Office Visit General Internal Medicine [facility] [place] [address] [place] [address] Angeli Lee MD 200 [facility] [place] [address] Type 2 diabetes mellitus with hemoglobin A1c goal of less than 7.0% ([facility])*; 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 Active Cholecalciferol (VITAMIN D3) 54199 units TABS Take 1 Tab by mouth [...] MEALS). 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] Patient Active Problem List Diagnosis Atrial fibrillation ([facility]) Anticoagulation management encounter 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 project 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 therapy Gouty arthropathy Type 2 diabetes mellitus with hemoglobin A1c goal of less than 7.0% ([facility]) DYSLIPIDEMIA, GOAL LDL BELOW 100 L KNEE JOINT REVISION HTN, goal below 140/90 Acquired absence of other toe(s), unspecified side ([facility]) Morbid obesity due to excess calories ([facility]) Exudative age-related macular degeneration of left eye with active choroidal neovascularization ([facility]) Type 2 diabetes mellitus with stage 4 chronic kidney disease, without long-term current use of insulin ([facility]) Chronic kidney disease, stage 4 (severe) ([facility]) Body mass index (BMI) of 45.0 to 49.9 in adult ([facility]) 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 one 0 FREESTYLE LITE STRP check sugars tid 1 11 FREESTYLE LANCETS MISC check blood sugars 3 times daily 1 box 11 ASPIRIN 81 MG PO TBEC Take by mouth at bedtime . Cholecalciferol (VITAMIN D3) 59066 units TABS Take 1 Tab by mouth [...] MINUTES BEFORE MEALS). 180 Tablet 1 Nystatin 045195 UNIT/GM External Powder (Nystop) APPLY TOPICALLY TO [...] Name Age of Onset Heart Disorder Father [place] age 53 Neurological Disorder Mother Accident age 20 Hypertension Sister Heart Disorder Brother [place] age 53 No Past Hx Sister Thyroid [...] hemoglobin A1c goal of less than 7.0% ([facility]) (Primary) - ALBUMIN / CREATININE RATIO, URINE; [...] Avoid nsaids. Continue low salt and hydration. 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 project 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 therapy On coumadin. [...] Mobile Phlebotomy [facility] [address] [place] [address] [facility], Gml Mobile Home [place] [address] [place] [address] 04/26/2024 6:00 AM EST Anticoagulation Centralized Clinical Pharmacy Services, Moe Mohamud [address] [place] [address] [place] [address] [facility] [place] [address] 05/27/2024 2:20 PM EST Office Visit Nephrology, [address] [place] [address] Lvey Garcia MD 200 [facility] [place] [address] 06/06/2024 10:15 AM EST Office Visit Ophthalmology, [facility] [address] [place] [address] Kodi Souza DO [address] [place] [address] 09/02/2024 10:00 AM EDT Office Visit Cardiology, [facility] [address] [place] [address] Dasia Cohen CRNP [address] [place] [address] 09/29/2024 9:20 AM EDT Office Visit General Internal Medicine [facility] [address] [facility] [place], [place] [address] Angeli Lee MD 200 [facility] [place] [address] Scheduled Orders Name Type Priority Associated Diagnoses [...] this encounter Medical Devices Implanted Type Area Sap Integration Architect Device Identifier Shelf Expiration Date Model / Serial / Lot Lens Intraoc 25.5 - [id number] - [id number] Implanted:Qty: 1 on 09/03/2021 by Jeffrey Rodriguez MD at OR [facility] Left: Eye [employer] 09/28/2025 [id number] / [id number] / [id number] Lens Intraoc 24.5 - [id number] - [id number] Implanted:Qty: 1 on 09/17/2021 by Jeffrey Rodriguez MD at OR [facility] Right: Eye [employer]OM[employer] 10/29/2025 [id number] / [id number] / [id number] documented as of this encounter Visit Diagnoses Diagnosis Type 2 diabetes mellitus with hemoglobin A1c goal of less than 7.0% ([facility])- Primary 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
--- OUTSIDE RECORDS SUMMARY | 2024-05-21 10:48 | External Medical Summary | Summary of Care ---
Author Name Unknown Organization [facility] Address [address] [place] [address] Phone [phone] Care Team Providers Care Sample Paster Name Role Phone Angeli Lee MD Primary Care Provider + Reason for Visit * Reason Comments eRx-Medication Refill Encounter Details Date Type Department Care Team (Late st Contact Info) Description 02/12/2024 Refill General Internal Medicine [facility] 200 [facility] [place] [address] Angeli Lee MD 200 [place] [address] Gouty arthropathy; Type 2 diabetes mellitus with hemoglobin A1c goal of less than 7.0% ([facility]) Allergies No known active allergiesdocumented as of this encounter (statuses as of 02/13/2024) Medications Medication Sig Dispensed Refills Start Date [...] at bedtime . Active Cholecalciferol (VITAMIN D3) 30579 units TABS Take 1 Tab by mouth [...] Oral Tablet Extended Release 24 Hour (toPROL XL)Indications:Crib Pad Maker jose atrial fibrillation (HCC),HTN, goal below 140/90 [...] THE MORNING 90 Tablet 3 09/03/2023 Active Fenofibrate 48 MG Oral Tablet (Tricor)Indications :Dyslipidemia, goal LDL below 100 Take 1 Tablet by mouth in the morning. 30 Tablet 5 10/07/2023 Active glipiZIDE 5 MG Oral Tablet (Glucotrol) TAKE 1 TABLET EVERY MORNING AND 1 TABLET BEFORE BEDTIME (TAKE 30 MINUTES BEFORE MEALS). 180 Tablet 1 11/10/2023 Active Nystatin 478766 UNIT/GM External Powder (Nystop) APPLY TOPICALLY TO AFFECTED AREA 3 TIMES A DAY. 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, without long-term current use of insulin 10/12/2023 Overview: Per CKD protocol Chronic kidney disease, stage 4 (severe) 024 Overview: Per CKD protocol Bilateral malignant neoplasm of breast in female, estrogen receptor positive 03/10/2023 Atrial fibrillation, unspecified type 11/12/2022 Exudative age-related macula r degeneration of left eye with active choroidal neovascularization 08/26/2021 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 Carcinoma in situ of breast 01/08/2015 Bilateral breast cancer 01/08/2015 L KNEE JOINT REVISION 12/31/2010 DYSLIPIDEMIA, GOAL LDL BELOW 100 05/10/2009 Overview: Per Lipid Taxonomy. Type 2 diabetes mellitus wit h hemoglobin A1c goal of less than 7.0% 03/29/2009 Overview: Per Diabetes Taxonomy. 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 1 07/17/2002 Anticoagulation management encounter 11/24/2001 Atrial fibrillation 05/26/2001 documented as of this encounter (statuses as of 02/13/2024) Resolved Problems Problem Noted Date Diagnosed Date Resolved Date Type 2 diabetes mellitus wit h [...] disease 11/08/2018 10/11/2020 Overview: Per CKD protocol HTN, GOAL BELOW 140/80 01/19/201209/05 Overview: Per [...] as of this encounter (statuses as of 02/13/2024) Immunizations Name Administration Dates Next Due COVID-19 mRNA, LNP-s, No Pre serve, 2-Dose Series ([employer]) 11/25/2021,05/14/2021,07/28/2020,0 10/2020 COVID-19, LNP-s, No Preserve , [...] 65+ Yrs, IM (FLUAD) 02/08/2020 Seasonal Influenza Virus Vac cine, Unspecified Formulation 02/08/2020,03/03/2019,04/06/2018,11/2016,02/14/2016,03/15/2015,02/17/20 14,03/17/2013,03/05/2012,02/27/2011,1 ,03/07/2009,03/15/2008,03/16,03/25/2006,03/31/2005, 4,04/13/2003,05/21/2000 Seasonal Influenza, PF, 6 M & above, IM , (FluLaval or Fluzone) 03/03/2019,04/06/2018,04/07/2017 Seasonal Influenza, Quadriva lent Hd (Fluzone Hd) 03/10/2023,04/18/2022,03/13/2021 Seasonal Influenza, Quadriva lent, No Preserve, IM 02/14/2016,03/15/2015 Seasonal Influenza, Trivalen t, (IIV3), with Preserv, (Fluzone) 02/16/2014,03/17/2013,03/05/2012,01/31,03/19/2010,03/07/2009,03/15/20 08,03/16/2007,03/25/2006 03/07/2010 TD - Tetanus/Diptheria (ADULT) 10/18/2019 TDAP (age [...] encounter Miscellaneous Notes * Telephone Encounter - Sasha Hicks [facility] - 02/13/2024 9:41 PM EDT Refused Prescriptions: Disp Refills glipiZIDE 5 MG Oral Tablet (Glucotrol) 180 Ta*1 Sig: TAKE 1 TABLET EVERY MORNING AND 1 TABLET BEFORE BEDTIME (TAKE 30 MINUTES BEFORE MEALS).Refused By: SASHA HICKS for Refusal: Too soon Allopurinol 300 MG Oral Tablet (Zyloprim) 90 Tab*2 Sig: TAKE 1TABLET BY MOUTH IN THE MORNINGRefused By: SASHA HICKS for Refusal: Too soon documented in this encounter Plan of Treatment Upcoming Encounters Date Type Department Care Team (Late st Contact Info) Description 02/15/2024 11:05 AM EDT Laboratory Lab Mobile Phlebotomy [facility] [address] [facility] [place] [address] [facility], Gml Mobile Home Draw [address] [facility] [place] [address] 02/16/2024 6:00 AM EDT Anticoagulation Centralized Clinical Pharmacy Services, Moe Mohamud [address] [place] [address] [place] [address] [place] [address] 02/19/2024 11:00 AM EDT Office Visit Cardiology, [facility] [address] [place] [address] [address] Dasia Cohen CRNP [address] [place] [address] 03/11/2024 10:15 AM EDT Office Visit Ophthalmology, [facility] [address] [place] [address] Kodi Souza DO [address] [place] [address] 03/30/2024 10:20 AM EDT Office Visit [facility] [place] [address] [place] [address] Angeli Lee MD 200 [facility] [place] [address] 05/27/2024 2:20 PM EST Office Visit Nephrology, [facility] [place] [address] [facility] [place] [address] Levy Garcia MD [address] [facility] [address] [place], [place] [address] Health Maintenance Due Date Last Done Comments Adult Wellness Visit 06/07/2020 06/07/2019 Depression Screening 11/01/2021 11/01/2020 Albumin/Creatinine Ratio 08/29/2023 023, 08/20/2021, 10/28/2018, Additional history exists Diabetic Foot Exam 12/19/2023 12/18/2022, 0 11/01/2020, 11/04/2018, Additional history exists COVID-19 Vaccine ( season) 2024 04/07/2023, 11/25/2021, 11/25/2021, Additional history exists Influenza Vaccine (FLU shot) (#1) 2024 03/10/2023, 04/18/2022, 03/13/2021, Additional history exists HbA1c 03/18/2024 09/17/2023, 08/0 [...] 05/04/2004 Zoster Vaccines Completed 02/08/2021, 10/30, 12/13/2013 HPV (Gardasil) Vaccine Aged Out No lo nger eligible based on patient's age to complete this topic Hepatitis B Vaccine Aged Out No longe r eligible based on patient's age to complete this topic MENINGOCOCCAL (MENACTRA/MENVEO) Aged Out No longer eligible based on patient's age to complete this topic documented as of this encounter Medical Devices Implanted Type Area Elevator Erector Device Identifier Shelf Expiration Date Model / Serial / Lot Lens Intraoc 25.5 - [id number] - [id number] Implanted:Qty: 1 on 09/03/2021 by Jeffrey Rodriguez MD at OR [facility] Left: Eye [employer]OM[employer] 09/28/2025 [id number] / [id number] / [id number] Lens Intraoc 24.5 - [id number] - [id number] Implanted:Qty: 1 on 09/17/2021 by Jeffrey Rodriguez MD at OR [facility] Right: Eye [employer]OMB 10/29/2025 [id number] / [id number] / [id number] documented as of this encounter Visit Diagnoses Diagnosis Gouty arthropathy Gouty arthropathy, unspecified Type 2 diabetes mellitus with hemoglobin A1c goal of less than 7.0% (HCC) documented in this encounter Care Teams Sample Paster Relationship Specialty Start Date End Date Angeli Lee MD [address] [place] [address] [place] [address] PCP - General 11/02/08 documented as of this encounter
--- OUTSIDE RECORDS SUMMARY | 2024-05-21 10:48 | External Medical Summary ---
Author Name Unknown Address Unknown Organization K0G[facility] [place] [address] Laboratory Report Ordering Provider Test Date Status MICHAEL MADDEN 02/15/2024 07:56:00 Final Standing order for pt/inr. < br/>Please draw pt/inr every 1 to 4 weeks as requested
Results to [facility]

Warfarin Therapy
INR: 2.0-3.0 conventional anticoagulation
INR: 2.5-3.5 high intensity anticoagulation Observation Date Value Abnormality Reference (Units ) Status PT 02/15/2024 07:56:00 27.8 Above high normal 11 .6-15.2 (seconds) Final INR 02/15/2024 07:56:00 2.6 Above high normal 0. 8-1.2 Final Performing Location [facility] [place] [address]
--- OUTSIDE RECORDS SUMMARY | 2024-05-21 10:48 | External Medical Summary | Summary of Care ---
Author Name Unknown Organization [facility] Address [address] [facility] [place] [address] Phone [phone] Care Team Providers Care Radiation Engineer Name Role Phone Angeli Lee MD Primary Care Provider + Reason for Visit * Reason Comments Dosage Adjustment Via Phone (anticoag Cl inic) Encounter Details Date Type Department Care Team (Late st Contact Info) Description 01/05/2024 6:00 AM EDT Anticoagulation Centralized Clinical Pharmacy Services, Moe Mohamud [address] [place] [address] [place] [address] [place] [address] Atrial fibrillation, unspecified type (HCC)* Allergies No known active allergiesdocumented as of this encounter (statuses as of 01/05/2024) Medications Medication Sig Dispensed Refills Start Date [...] at bedtime . Active Cholecalciferol (VITAMIN D3) 63211 units TABS Take 1 Tab by mouth every evening. Active Cyanocobalamin (VITAMIN B12) 1000 MCG TBCR Take by mouth at bedtime . Active Misc Natural Products (APPLE CIDER VINEGAR DIET) TABS Take by mouth. Active Apple Cider Vinegar 500 MG Oral Tablet Take by mouth 1 Tablet daily with dinner . Active Nystatin 941881 UNIT/GM External Powder (Nystop) Apply topically to affected area 3 times a day. Apply to affected area and abdominal folds twice a day as needed. 60 g 3 12/26/2022 Active Digoxin 125 MCG Oral Tablet (Lanoxin) [...] Oral Tablet Extended Release 24 Hour (toPROL XL)Indications:Resident Care Aid jose atrial fibrillation (HCC),HTN, goal below 140/90 [...] BEFORE MEALS). 180 Tablet 1 11/10/2023 Active Ezetimibe 10 MG Oral Tablet (Zetia)Indications: Dyslipidemia, goal LDL below 100 Take 1 Tablet by mouth in the morning. In the morning.. 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 1 07/17/2002 Anticoagulation management encounter 11/24/2001 Atrial fibrillation 05/26/2001 documented as of this encounter (statuses as of 01/05/2024) Resolved Problems Problem Noted Date Diagnosed Date [...] as of this encounter (statuses as of 01/05/2024) Immunizations Name Administration Dates Next Due COVID-19 mRNA, LNP-s, No Pre serve, 2-Dose Series ([employer]) 11/25/2021,05/14/2021,07/28/2020,10/2020 COVID-19, LNP-s, No Preserve , Joseph-sucrose, [...] lent, No Preserve, IM 02/14/2016,03/15/2015 Seasonal Influenza, Split, I IV3, With Preserve, Inj 02/16/2014,03/17/2013,03/05/2012,01/31,03/19/2010,03/07/2009,03/15/20 08,03/16/2007,03/25/2006 03/07/2010 TD - Tetanus/Diptheria (ADULT) [...] as of this encounter Progress Notes * Aureliano Yeung CPhT - 01/05/2024 8:21 AM EDT Contacts Type Contact Phone/Fax 01/05/2024 08:20 AM EDT Phone (Outgoing) PALOMA JAQUEZ (Emergency Contact) [phone] (M) spoke with Paloma Subjective Patient Findings Negatives: Signs/symptoms of thrombosis, [...] date communicated as noted by Pharmacist: Yes Aureliano Yeung CPhT 01/05/2024, 8:21 AM * Diana Whitehead RPh - 01/04/2024 4:39 PM EDT Coumadin Clinic (region specific) Objective Current Warfarin Dose As of 01/05/2024 Warfarin maintenance plan: 0 mg every Mon; 2.5 mg (5 mg x 0.5) all other days INR Result As of 01/05/2024 INR goal: 2.0-3.0 INR used for dosin.2 (01/04/2024) Assessment & Plan Warfarin Plan As of 01/05/2024 Full warfarin instructions: 0 mg every Mon; 2.5 mg all other days No change documented: Diana Whitehead RPh Next INR check: 01/25/2024 Repeat PT/INR in 3 week(s) Weekly dose: not changed Additional Dosing Information: Description GML M// Tech to contact patient with dose instructions as noted. Diana Whitehead RPh 01/04/2024, 4:39 PM documented in this encounter Plan of Treatment Upcoming Encounters Date Type Department Care Team ([facility] Contact Info) Description 01/26/2024 6:00 AM EDT Anticoagulation Centralized Clinical Pharmacy Services, Moe Mohamud [address] [place] [address] [place] [address] [facility], [address] [place] [address] 02/05/2024 10:35 AM EDT Cardiac Studies Cardiac Studies, [facility] [address] [facility] [place] [address] 02/19/2024 11:00 AM EDT Office Visit Cardiology, [facility] [address] [facility] [place] [address] Dasia Cohen CRNP [address] [place] [address] 03/11/2024 10:15 AM EDT Office Visit Ophthalmology, [facility] [address] [facility] [place] [address] Kodi Souza DO [address] [place] [address] 03/30/2024 10:20 AM EDT [facility] [place] [address] [place] [address] Angeli Lee MD [address] [place] [address] 05/27/2024 2:20 PM EST [facility] [place] [address] [place] [address] Levy Garcia MD [address] [place] [address] Health Maintenance Due Date Last Done Comments Adult Wellness Visit 06/07/2020 06/07/2019 Depression Screening 11/01/2021 11/01/2020 COVID-19 Vaccine ( season) 2023 04/07/2023, 11/25/2021, 11/25/2021, Additional history exists Albumin/Creatinine Ratio 08/29/2023 023, 08/20/2021, 10/28/2018, Additional history exists Diabetic Foot Exam 12/19/2023 12/18/2022, 0 11/01/2020, 11/04/2018, Additional history exists Influenza Vaccine (FLU shot) [...] 11/01/2024 11/02/2023, , 01/27/2023, Additional history exists DTaP,Tdap,and Td Vaccines (6 - Td or Tdap) 10/17/2029 [...] this encounter Medical Devices Implanted Type Area Fire Equipment Inspector Device Identifier Shelf Expiration Date Model / Serial / Lot Lens Intraoc 25.5 - [id number] - [id number] Implanted:Qty: 1 on 09/03/2021 by Jeffrey Rodriguez MD at OR [facility] Left: Eye [employer] 09/28/2025 [id number] / [id number] / [id number] Lens Intraoc 24.5 - [id number] - [id number] Implanted:Qty: 1 on 09/17/2021 by eJffrey Rodriguez MD at OR [facility] Right: Eye [employer]CH [employer]OMB 10/29/2025 [id number] / [id number] / [id number] documented as of this encounter Visit Diagnoses Diagnosis Atrial fibrillation, unspecified type (HCC)- Primary documented in this encounter Care Teams Radiation Engineer Relationship Specialty Start Date End Date Angeli Lee MD [address] [facility] [place] [address] PCP - General 11/02/08 documented as of this encounter
--- OUTSIDE RECORDS SUMMARY | 2024-05-21 10:48 | External Medical Summary | Summary of Care ---
Author Name Unknown Organization [facility] Address [address] [place] [address] Phone [phone] Care Team Providers Care Certified Alcohol Drug Counselor Name Role Phone Angeli Lee MD Primary Care Provider + Reason for Visit * Reason Comments Follow Up * Precert (Within 10 days (routine)) - Authorized Specialty Diagnoses / Procedures Referred By Salma cohen Referred To Contact Ophthalmology Diagnoses Exudative age-related macular degeneration, left eye, with active choroidal neovascularization (HCC) Procedures CO INJECTION, FARICIMAB-SVOA, 0.1 MG CO INTRAVITREAL NJX PHARMACOLOGIC AGT SPX Kodi Souza DO [address] [facility] [address] Referral ID Status Reason Start Date Expiration Date V isits Requested Visits Authorized [id number] Authorized Precert 06/09/2023 05/31/2099 [id number] Encounter Details Date Type Department Care Team (Late st Contact Info) Description 12/18/2023 9:45 AM EDT Office Visit Ophthalmology, [facility] [address] [facility] [place] [address] Kodi Souza DO [address] [place] [address] Exudative age-related macular degeneration of left eye with active choroidal neovascularization (HCC)* Allergies No known active allergiesdocumented as of this encounter (statuses as of 12/18/2023) Medications Medication Sig Dispensed Refills Start Date [...] at bedtime . Active Cholecalciferol (VITAMIN D3) 36459 units TABS Take 1 Tab by mouth every evening. Active Cyanocobalamin (VITAMIN B12) 1000 MCG TBCR Take by mouth at bedtime . Active Misc Natural Products (APPLE CIDER VINEGAR DIET) TABS Take by mouth. Active Apple Cider Vinegar 500 MG Oral Tablet Take by mouth 1 Tablet daily with dinner . Active Nystatin 766219 UNIT/GM External Powder (Nystop) Apply topically to [...] Oral Tablet Extended Release 24 Hour (toPROL XL)Indications:Public Health Clinical Nurse Specialist jose atrial fibrillation (HCC),HTN, goal below 140/90 [...] 11/10/2023 Active Ezetimibe 10 MG Oral Tablet (Zetia) Take 1 Tablet by mouth in the morning. In the morning.. 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 1 07/17/2002 Anticoagulation management encounter 11/24/2001 Atrial fibrillation 05/26/2001 documented as of this encounter (statuses as of 12/18/2023) Resolved Problems Problem Noted Date Diagnosed Date [...] as of this encounter (statuses as of 12/18/2023) Immunizations Name Administration Dates Next Due COVID-19 mRNA, LNP-s, No Pre serve, 2-Dose Series (AppMesh) 11/25/2021,05/14/2021,07/28/2020,10/2020 COVID-19, LNP-s, No Preserve , Joseph-sucrose, [...] of this encounter Progress Notes * Kodi Souza, DO - 12/18/2023 9:45 AM EDT [facility] [place] Nursing notes reviewed. Eye vitals reviewed. Mood and Affect: normal HPI: Angela Lazar is a 88 year old female who presents for evaluation of macula. No other eye complaints. Denies significant pain. Base Eye Exam Visual Acuity (Snellen - Linear) Right Left Dist cc 20/40 20/70 -2 Dist ph cc NI NI Correction: Glasses Tonometry (Tonopen, 9:49 AM) Right Left Pressure 16 14 Pupils Pupils APD Right PERRL None Left PERRL None Visual Frias (Counting fingers) Right Left Full Full Extraocular Movement Right Left Full Full Neuro/Psych Oriented x3: Yes Mood/Affect: Normal Dilation Both eyes: 0.5% Proparacaine @ 9:49 AM Dilation #2 Left eye: 1.0% Mydriacyl, 2.5% Phenylephrine @ 9:49 AM Dilation #3 Left eye: 1.0% Mydriacyl, 2.5% Phenylephrine @ 9:51 AM Dilation Comments Patient cautioned that effects of dilation may last 2-7 hours dependant upon individual reaction. It was discussed that driving while dilated is not recommended. EXTERNAL: The ocular adnexae are unremarkable. SLE: Lids/Lashes: wnl OU Conjunctiva/Sclera: quiet OU Cornea: clear OU Anterior Chamber: deep and quiet OU Iris: normal OU; no NVI OU Lens: PCIOL OU Dilated fundus exam OD: 06/30/2023: vitreous: clear [...] 10 weeks ; went 8 weeks -Vabysmo 09/17/23, 06/30/23, 04/07/23, 01/27/23, 11/14/22, 08/28/22, 06/19/22--improved -13 weeks; worse at 12 weeks, better at [...] lipid control. 5. Pseudophakia OU -Dr. Rodriguez -stable F/u 112-14 weeks, dilate and OCT OS Kodi Souza, DO 0124 CC: Jeffrey Rodriguez MD CC: PCP: Angeli [...] documented in this encounter Nursing Notes * Mariel Osborn LPN - 12/18/2023 10:17 AM EDT Angela Lazar to receive ninth Vabysmo 6mg Injection of the Left eye. Correct eye confirmed with patient and marked by Kodi Souza DO Vabysmo 6mg lot # [id number] Exp. Date: 08/2025 * Carmel Price RN - 12/18/2023 9:43 AM EDT Angela Lazar is a 88 year old year old female who presents for AMD OU. Last Office Visit: 09/17/2023 (in office), Visit date not found (telemedicine) [...] Care Team (Late st Contact Info) Description 01/04/2024 7:00 AM EDT Laboratory Lab Mobile Phlebotomy [facility] [address] [facility] [place] [place] [address] Mvmg, Gml Mobile Home Draw [address] [facility] [place] [address] 01/05/2024 6:00 AM EDT Anticoagulation Centralized Clinical Pharmacy Services, Moe Mohamud [address] [place] [address] [place] [address] [place] [address] 02/05/2024 10:35 AM EDT Cardiac Studies Cardiac Studies, [facility] [address] [place] [address] 02/19/2024 11:00 AM EDT Office Visit Cardiology, [facility] [address] [place] [address] Dasia Cohen CRNP [address] [facility] [place] [address] 03/11/2024 10:15 AM EDT Office Visit Ophthalmology, [facility] [address] [place] [address] Kodi Souza, [address] [place] [address] 03/30/2024 10:20 AM EDT Office Visit General Internal Medicine [place], [place] [address] [facility] [place], [place] [address] Angeli Lee MD [address] [place], [place] [address] 05/27/2024 2:20 PM EST Office Visit Nephrology, [facility] [address] [place] [address] Levy Garcia MD [address] [facility] [place], [place] [address] Scheduled Orders Name Type Priority Associated Diagnoses Orde r Schedule RETINA SCAN DIAGNOSTIC IMAGE, POSTERIOR Procedures Routine Exudative age-related macular degeneration of left eye with active choroidal neovascularization (HCC) Ordered: 12/18/2023 Health Maintenance Due Date Last Done Comments Depression Screening 11/01/2021 11/01/2020 COVID-19 Vaccine ( [...] this encounter Medical Devices Implanted Type Area Environmental Planner Device Identifier Shelf Expiration Date Model / Serial / Lot Lens Intraoc 25.5 - [id number] - [id number] Implanted:Qty: 1 on 09/03/2021 by Jeffrey Rodriguez MD at OR [facility] Left: Eye BAUSCH [employer] LOMB 09/28/2025 [id number] / [id number] / [id number] Lens Intraoc 24.5 - [id number] - [id number] Implanted:Qty: 1 on 09/17/2021 by Jeffrey Rodriguez MD at OR [facility] Right: Eye BAUSCH & LOMB 10/29/2025 [id number] / [id number] / [id number] documented as of this encounter Visit Diagnoses [...] the treatment of a single eye. Given 12/18/2023 10:20 AM EDT 6 mg Eye Left Given 09/17/2023 11:47 AM EDT 6 mg E ye Left Given 06/30/2023 11:17 AM EST 6 mg E ye Left ROPivacaine (Naropin) inj 1.5 mg 1.5 mg, Injection, PRN Other, Starting on Thu06/30/23 at 1100, Until Thu06/29/24 at 1059, For 365 days Given 12/18/2023 10:19 AM EDT 1.5 mg Eye Left Given 09/17/2023 11:46 AM EDT 1.5 mg E ye Left Given 06/30/2023 11:17 AM EST 1.5 mg E ye Left documented in this encounter Care Teams Certified Alcohol Drug Counselor Relationship Specialty Start Date End Date Angeli Lee MD [address] [place] [address] PCP - General 11/02/08 documented as of this encounter
--- OUTSIDE RECORDS SUMMARY | 2024-05-21 10:48 | External Medical Summary | Summary of Care ---
Author Name Unknown Organization [facility] Address [address] [facility] [facility] [address] Phone [phone] Care Team Providers Care School Bus Technician Name Role Phone Angeli Lee MD Primary Care Provider + Reason for Visit * Reason Comments eRx-Medication Refill Encounter Details Date Type Department Care Team (Late st Contact Info) Description 02/23/2024 Refill Cardiology, [facility] [address] [place] [address] Dasia Quigley CRNP [address] [place] [address] DYSLIPIDEMIA, GOAL LDL BELOW 100 Allergies No known active allergiesdocumented as of this encounter (statuses as of 02/24/2024) Medications Medication Sig Dispensed Refills Start Date [...] at bedtime . Active Cholecalciferol (VITAMIN D3) 64519 units TABS Take 1 Tab by mouth [...] MEALS). 180 Tablet 1 11/10/2023 Active Nystatin 653130 UNIT/GM External Powder (Nystop) APPLY TOPICALLY TO AFFECTED AREA 3 TIMES A DAY. APPLY FOR ABDOMINAL FOLDS TWICE A DAY NEEDED 60 g 3 01/07/2024 Active Fenofibrate 48 MG Oral Tablet (Tricor)Indicatio ns:Dyslipidemia, goal LDL below 100 Take 1 Tablet by mouth in the morning. 30 Tablet 5 02/24/2024 Active Fenofibrate 48 MG Oral Tablet (Tricor)Indicatio ns:Dyslipidemia, goal LDL below 100 Take 1 Tablet by mouth in the morning. 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 of anticoagulant therapy 1 07/17/2002 Anticoagulation management encounter 11/24/2001 Atrial fibrillation 05/26/2001 documented as of this encounter (statuses as of 02/24/2024) Resolved Problems Problem Noted Date Diagnosed Date [...] as of this encounter (statuses as of 02/24/2024) Immunizations Name Administration Dates Next Due COVID-19 mRNA, LNP-s, No Pre serve, 2-Dose Series (Anne Fogarty) 11/25/2021,05/14/2021,07/28/2020,10/2020 COVID-19, LNP-s, No Preserve , Joseph-sucrose, Ages 12+ (Anne Fogarty) 11/25/2021 COVID-19, MRNA-LNP, 23-24, P F, 30 MCG/0.3 mL, 12 YRS AND ABOVE, IM (PFIZER-Comirnaty) 04/07/2023 DTaP Dipth/Tet/Acell Pertussis (Infanrix), Peds 10/31/2003 PPD 11/28/2022,11/19/2022 Pneumococcal Conjugate Vacc, 13 Valent (Prevnar) 12/24/2014 Pneumococcal Polysaccharide PPV23 (Pneumovax) 12/24/2014 RSV Vac., Bivalent, Perfusio n F, Pf,0.5 Ml (Abrysvo) 04/21/2023 Season Influenza, Quad, PF, Adjuvanted, 65+ Yrs, IM (FLUAD) 02/08/2020 Seasonal Influenza Virus Vac cine, Unspecified Formulation 02/08/2020,03/03/2019,04/06/2018,1111/2016,02/14/2016,03/15/2015,02/17/20 14,03/17/2013,03/05/2012,02/27/2011,1 ,03/07/2009,03/15/2008,03/16,03/25/2006,03/31/2005, 4,04/13/2003,05/21/2000 Seasonal Influenza, High Dos [...] Telephone Encounter - Dasia Quigley CRNP - 02/24/2024 8:06 AM EDT Signed Prescriptions: Disp Refills Fenofibrate 48 MG Oral Tablet (Tricor) 30 Tab*5 Sig: Take 1 Tablet by mouth in the morning. Authorizing Provider: DASIA QIUGLEY * Telephone Encounter - Sumi Alejandro RN - 02/23/2024 11:24 AM EDTPending Prescriptions: Disp Refills Fenofibrate 48 MG Oral Tablet [Pharmacy Me*30 Tab*5 Sig: Take 1 Tablet by mouth in the morning. * Telephone Encounter - Sumi Alejandro RN - 02/23/2024 11:23 AM EDT Did you pend patient's preferred pharmacy and medication before forwarding?yes Pharmacy: [facility] [address] Pending Prescriptions: Disp Refills Fenofibrate 48 MG Oral Tablet (Tricor) [P*30 Tab*5 Sig: Take 1 Tablet by mouth in the morning. Last Visit: 02/19/2024 (in office), Visit date not found (telemedicine) Next Visit: 09/09/2024 If no future appointments scheduled, and last appointment is greater than a year ago, please schedule patient for a follow-up appointment Last date the medication was ordered: Is this request for a controlled substance?No [...] AM ALT 12 12/13/2019 03:32 PM HGBA1C 7.3 (H) 09/17/2023 07:26 AM HGBA1C 6.9 (H) 05/03/2020 10:41 AM documented in this encounter Plan of Treatment Upcoming Encounters Date Type Department Care Team (Late st Contact Info) Description 03/07/2024 7:00 AM EDT Laboratory Lab Mobile Phlebotomy [facility] [place] [address] [facility], Gml Mobile Home Draw [address] [facility] [place] [address] 03/08/2024 6:00 AM EDT Anticoagulation Centralized Clinical Pharmacy Services, Moe Mohamud [address] [place] [address] [place] [address] [place] [address] 03/11/2024 10:15 AM EDT Office Visit Ophthalmology, [facility] [address] [place] [address] Kodi Souza, DO [address] [place] [address] 03/30/2024 10:20 AM EDT Office Visit General Internal Medicine [facility] [address] [facility] [place], [place] [address] Angeli Lee MD [address] [place] [address] 05/27/2024 2:20 PM EST Office Visit Nephrology, [facility] [address] [place] [address] Levy Garcia MD [address] [place], [place] [address] 09/09/2024 11:00 AM EDT Office Visit Cardiology, [facility] [address] [place] [address] Dasia Quigley CRNP [address] [place] [address] Health Maintenance Due Date Last Done Comments [...] this encounter Medical Devices Implanted Type Area Gray Tender Device Identifier Shelf Expiration Date Model / Serial / Lot Lens Intraoc 25.5 - [id number] - [id number] Implanted:Qty: 1 on 09/03/2021 by Jeffrey Rodriguez MD at OR [facility] Left: Eye BAUSCH & LOMB 09/28/2025 [id number] / [id number] / [id number] Lens Intraoc 24.5 - [id number] - [id number] Implanted:Qty: 1 on 09/17/2021 by Jeffrey Rodriguez MD at OR [facility] Right: Eye BAUSCH & LOMB 10/29/2025 [id number] / [id number] / [id number] documented as of this encounter Visit Diagnoses Diagnosis DYSLIPIDEMIA, GOAL LDL BELOW 100 Other and unspecified hyperlipidemia documented in this encounter Care Teams School Bus Technician Relationship Specialty Start Date End Date Lee, Angeli Merrick, MD [address] [place] [address] PCP - General 11/02/08 documented as of this encounter
--- OUTSIDE RECORDS SUMMARY | 2024-05-21 10:48 | External Medical Summary | Summary of Care ---
Author Name Unknown Organization [facility] Address [address] [facility] [facility] [address] Phone [phone] Care Team Providers Care Balloon Dipper Name Role Phone Angeli Lee MD Primary Care Provider + Reason for Visit * Reason Onset Date Comments Letter Requests 12/23/2023 Encounter Details Date Type Department Care Team (Late st Contact Info) Description 12/23/2023 Telephone General Internal Medicine [facility] [address] [facility] [place] [address] Angeli Lee MD [address] [facility] [place] [address] Letter Requests Allergies No known active allergiesdocumented as of this encounter (statuses as of 01/04/2024) Medications Medication Sig Dispensed Refills Start Date [...] at bedtime . Active Cholecalciferol (VITAMIN D3) 14613 units TABS Take 1 Tab by mouth every evening. Active Cyanocobalamin (VITAMIN B12) 1000 MCG TBCR Take by mouth at bedtime . Active Misc Natural Products (APPLE CIDER VINEGAR DIET) TABS Take by mouth. Active Apple Cider Vinegar 500 MG Oral Tablet Take by mouth 1 Tablet daily with dinner . Active Nystatin 861030 UNIT/GM External Powder (Nystop) Apply topically to [...] in the evening. 11/16/2022 Active DIURETIC TITRATION PLANIndications:Ed eunice, unspecified type [...] 06/29/2023 Active Furosemide 40 MG Oral Tablet (Lasix)Indications :HTN, goal below 140/80,Persistent atrial fibrillation (HCC),High triglycerides,Atri al fibrillation (HCC),Dyslipidemia , goal LDL below 100 TAKE 1 TABLET BY MOUTH IN THE MORNING 90 Tablet 3 07/28/2023 Active Allopurinol 300 MG Oral Tablet (Zyloprim)Indicati [...] 08/05/2023 Active Lisinopril 10 MG Oral Tablet (Prinivil)Indicati ons:HTN, goal below 140/80 TAKE 1 TABLET BY MOUTH IN THE MORNING 90 Tablet 3 09/03/2023 Active Fenofibrate 48 MG Oral Tablet (Tricor)Indication [...] in the morning. In the morning.. 10/05/2023 Discontinue d(Refill) Hospital, Clinic, or Other Facility Administered Medication Ordered Dose Route Frequency Start Date End Date Status Agustokyjacob-svoa (Vabysmo) intravitreal inj 6 mgIndications:Exudative age-related macular degeneration of left eye with active choroidal neovascularization (HCC) 6 mg IZ PRN 06/30/2023 06/29/2024 Active ROPivacaine (Naropin) inj 1.5 mgIndications:Exudative age-related macular degeneration of left eye with active choroidal neovascularization (HCC) 1.5 mg IJ PRN 06/30/2023 06/29/2024 Active documented as of this encounter (statuses as of 01/04/2024) Active Problems Problem Noted Date Diagnosed Date [...] 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 Overview: ICD-9 Code 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 1 07/17/2002 Anticoagulation management encounter 11/24/2001 Atrial fibrillation 05/26/2001 documented as of this encounter (statuses as of 01/04/2024) Resolved Problems Problem Noted Date Diagnosed Date [...] as of this encounter (statuses as of 01/04/2024) Immunizations Name Administration Dates Next Due COVID-19 mRNA, LNP-s, No Pre serve, 2-Dose Series (Foodist) 11/25/2021,05/14/2021,07/28/2020,10/2020 COVID-19, LNP-s, No Preserve , Joseph-sucrose, Ages 12+ (Pfizer) 11/25/2021 COVID-19, MRNA-LNP, 23-24, P F, 30 MCG/0.3 mL, 12 YRS AND ABOVE, IM [facility]) 04/07/2023 DTaP Dipth/Tet/Acell Pertussis (Infanrix), Peds 10/31/2003 [...] encounter Miscellaneous Notes * Telephone Encounter - Pam Gardner, MED ASSIST - 01/04/2024 11:33 AM EDT Letter created and patient's daughter aware. * Telephone Encounter - Homa Urbano OSA - 01/04/2024 11:15 AM EDT Patient calling in to check on the status of previous message. Patient Called after 48 hour timeframe and escalation e-mail was sent to clinic leadership. * Telephone Encounter - Angeli Lee MD - 12/24/2023 10:45 AM EDT Yes, its okay to give a letter as below looking at pt's underlying complex health history and not being so mobile at home. * Telephone Encounter - Jeri Rowan LPN - 12/23/2023 1:58 PM EDT Okay for letter? * Telephone Encounter - Debby Acosta OSA - 12/23/2023 11:21 AM EDT Type of letter requested: DMV Does the letter need to provide any specific information: Patient is disabled and needs a new photoid, but is unable to physically able to go to [facility] - asking for a letter stating due to patients medical condition she is unable to go to the [facility] in person for a photo ID - Would you like letter faxed or picked up?: pickers material handlers / also make available through [employer] Fax number: n/a Number to be called when ready to be picked up: [phone] Date needed: with in week documented in this encounter Plan of Treatment Upcoming Encounters Date Type Department Care Team (Late st Contact Info) Description 01/05/2024 6:00 AM EDT Anticoagulation Centralized Clinical Pharmacy Services, Moe Mohamud [address] [place] [address] [place] [address] [facility], [address] [place] [address] 02/05/2024 10:35 AM EDT Cardiac Studies Cardiac Studies, [facility] [address] [facility] [place] [address] 02/19/2024 11:00 AM EDT Office Visit Cardiology, [facility] [address] [facility] [place] [address] Dasia Cohen CRNP [address] [place] [address] 03/11/2024 10:15 AM EDT Office Visit Ophthalmology, [facility] [address] [facility] [place] [address] Kodi Souza DO [address] [place] [address] 03/30/2024 10:20 AM EDT Office Visit General Internal Medicine [facility] [address] [place] [address] Angeli Lee MD [facility] [place] [address] 05/27/2024 2:20 PM EST Office Visit Nephrology, [facility] [address] [place] [address] Levy Garcia MD [address] [place] [address] Health Maintenance Due Date Last Done Comments Depression Screening 11/01/2021 11/01/2020 COVID-19 Vaccine (2022-24 season) 2023 04/07/2023, 11/25/2021, 11/25/2021, Additional history exists Albumin/Creatinine Ratio 08/29/202308/28/ 023, 08/20/2021, 10/28/2018, Additional history exists Diabetic [...] this encounter Medical Devices Implanted Type Area Trim Machine Adjuster Device Identifier Shelf Expiration Date Model / Serial / Lot Lens Intraoc 25.5 - [id number] - [id number] Implanted:Qty: 1 on 09/03/2021 by Jeffrey Rodriguez MD at OR [facility] Left: Eye BAUSCH & LOMB 09/28/2025 [id number] / [id number] / [id number] Lens Intraoc 24.5 - [id number] - [id number] Implanted:Qty: 1 on 09/17/2021 by Jeffrey Rodriguez MD at OR [facility] Right: Eye BAUSCH & LOMB 10/29/2025 [id number] / [id number] / [id number] documented as of this encounter Care Teams Balloon Dipper Relationship Specialty Start Date End Date Angeli Lee MD [address] [facility] [place] [address] PCP - General 11/02/08 documented as of this encounter
--- OUTSIDE RECORDS SUMMARY | 2024-05-21 10:48 | External Medical Summary | Summary of Care ---
Author Name Unknown Organization [facility] Address [address] [facility] [place] [address] Phone [phone] Care Team Providers Care Manufacturing Quality Manager Name Role Phone Angeli Lee MD Primary Care Provider + Reason for Visit * Reason Comments Dosage Adjustment Via Phone (anticoag Cl inic) Encounter Details Date Type Department Care Team (Late st Contact Info) Description 01/26/2024 6:00 AM EDT Anticoagulation Centralized Clinical Pharmacy Services, Moe Mohamud [address] [place] [address] [place] [address] [place] [address] Atrial fibrillation, unspecified type (HCC)* Allergies No known active allergiesdocumented as of this encounter (statuses as of 01/26/2024) Medications Medication Sig Dispensed Refills Start Date [...] at bedtime . Active Cholecalciferol (VITAMIN D3) 11263 units TABS Take 1 Tab by mouth [...] Oral Tablet Extended Release 24 Hour (toPROL XL)Indications:Aging Box Hand jose atrial fibrillation (HCC),HTN, goal below 140/90 [...] MEALS). 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 Overview: ICD-9 Code Update [facility] current use of anticoagulant therapy 1 07/17/2002 Anticoagulation management encounter 11/24/2001 Atrial fibrillation 05/26/2001 documented as of this encounter (statuses as of 01/26/2024) Resolved Problems Problem Noted Date Diagnosed Date [...] as of this encounter (statuses as of 01/26/2024) Immunizations Name Administration Dates Next Due COVID-19 mRNA, LNP-s, No Pre serve, 2-Dose Series ([employer] Tom[employer]) 11/25/2021,05/14/2021,07/28/2020,2021 COVID-19, LNP-s, No Preserve , Joseph-sucrose, Ages [...] as of this encounter Progress Notes * Yanni Loza, harnessmaker - 01/26/2024 9:13 AM EDT Contacts Contact Date/Time Type Contact Phone/Fax 01/26/2024 09:10 AM EDT Phone (Outgoing) PALOMA JAQUEZ (Emergency Contact) [phone] (M) Subjective Patient Findings Negatives: Signs/symptoms of bleeding, Change in health, Change in activity, Upcoming invasive procedure, Missed doses, Extra doses, Change in medications, Change in diet/appetite, Bruising Advised patient to contact Anticoagulation Clinic if any unusual bruising or bleeding, recent illness, changes in medication, or questions/concerns. PT/INR results, Coumadin dose instructions, and next PT/INR date communicated as noted by Pharmacist: Yes ADRIANA NEGRON 01/26/2024, 9:13 AM * Diana Whitehead RPh - 01/26/2024 8:09 AM EDT Coumadin Clinic (region specific) Objective Current Warfarin Dose As of 01/26/2024 Warfarin maintenance plan: 0 mg every Mon; 2.5 mg (5 mg x 0.5) all other days INR Result As of 01/26/2024 INR goal: 2.0-3.0 INR used for dosin.5 (01/25/2024) Assessment & Plan Warfarin Plan As of 01/26/2024 Full warfarin instructions: 0 mg every Mon; 2.5 mg all other days No change documented: Diana Whitehead RPh Next INR check: 02/15/2024 Repeat PT/INR in 3 week(s) Weekly dose: not changed Additional D[facility] Information: [facility] Tech to contact patient with dose instructions as noted. Diana Whitehead RPh 01/26/2024, 8:09 AM documented in this encounter Plan of Treatment Upcoming Encounters Date Type Department Care Team (Late st Contact Info) Description 02/05/2024 10:35 AM EDT Cardiac Studies Cardiac Studies, [facility]isha Alej[address] [place] [address] 02/19/2024 11:00 AM EDT Office Visit Cardiology, [facility] [address] [facility] [place] [address] Dasia Cohen CRNP [address] [place] [address] 03/11/2024 10:15 AM EDT Office Visit Ophthalmology, [facility] [address] [place] [address] Kodi Souza DO [address] [place] [address] 03/30/2024 10:20 AM EDT Office Visit General Internal Medicine [facility] [address] [facility] [place] [address] Angeli Lee MD 200 [facility] [place] [address] 05/27/2024 2:20 PM EST Office Visit Nephrology, [facility] [address] [facility] [place] [address] Levy Garcia MD [address] [facility] [place] [address] Health Maintenance Due Date Last Done Comments [...] this encounter Medical Devices Implanted Type Area Studio Operation Engineer Device Identifier Shelf Expiration Date Model / Serial / Lot Lens Intraoc 25.5 - [id number] - [id number] Implanted:Qty: 1 on 09/03/2021 by Jeffrey Rodriguez MD at OR [facility] Left: Eye BAUSCH & LOMB 09/28/2025 [id number] / [id number] / [id number] Lens Intraoc 24.5 - [id number] - [id number] Implanted:Qty: 1 on 09/17/2021 by Jeffrey Rodriguez MD at OR [facility] Right: Eye BAUSCH & LOMB 10/29/2025 [id number] / [id number] / [id number] documented as of this encounter Visit Diagnoses Diagnosis Atrial fibrillation, unspecified type (HCC)- Primary documented in this encounter Care Teams Manufacturing Quality Manager Relationship Specialty Start Date End Date Angeli Lee MD [address] [place] [address] [place] [address] PCP - General 11/02/08 documented as of this encounter
--- OUTSIDE RECORDS SUMMARY | 2024-05-21 10:48 | External Medical Summary | Summary of Care ---
Author Name Unknown Organization [facility] Address [address] [facility] [place] [address] Phone [phone] Care Team Providers Care Tapeman Name Role Phone Angeli Lee MD Primary Care Provider + Reason for Visit * Reason Comments Dosage Adjustment Via Phone (anticoag Cl inic) Encounter Details Date Type Department Care Team (Late st Contact Info) Description 02/16/2024 6:00 AM EDT Anticoagulation Centralized Clinical Pharmacy Services, Moe Mohamud [address] [place] [address] [place] [address] [place] [address] Atrial fibrillation, unspecified type (HCC)* Allergies No known active allergiesdocumented as of this encounter (statuses as of 02/16/2024) Medications Medication Sig Dispensed Refills Start Date [...] at bedtime . Active Cholecalciferol (VITAMIN D3) 24346 units TABS Take 1 Tab by mouth [...] Oral Tablet Extended Release 24 Hour (toPROL XL)Indications:Metal Model Builder jose atrial fibrillation (HCC),HTN, goal below 140/90 [...] MEALS). 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 1 07/17/2002 Anticoagulation management encounter 11/24/2001 Atrial fibrillation 05/26/2001 documented as of this encounter (statuses as of 02/16/2024) Resolved Problems Problem Noted Date Diagnosed Date [...] as of this encounter (statuses as of 02/16/2024) Immunizations Name Administration Dates Next Due COVID-19 mRNA, LNP-s, No Pre serve, 2-Dose Series ([employer]) 11/25/2021,05/14/2021,07/28/2020,2021 COVID-19, LNP-s, No Preserve , Joseph-sucrose, [...] this encounter Progress Notes * Yanni Loza, sap bobj developer - 02/16/2024 10:36 AM EDT Contacts Contact Date/Time Type Contact Phone/Fax 02/16/2024 10:31 AM EDT Phone (Outgoing) PALOMA JAQUEZ (Emergency Contact) [phone] (M) spoke to pts dtr Subjective Patient Findings Negatives: Signs/symptoms of bleeding, Change in health, Change in activity, Upcoming invasive procedure, Missed doses, Extra doses, Change in medications, Change in diet/appetite, Bruising Advised patient to contact Anticoagulation Clinic if any unusual bruising or bleeding, recent illness, changes in medication, or questions/concerns. PT/INR results, Coumadin dose instructions, and next PT/INR date communicated as noted by Pharmacist: Yes ADRIANA NEGRON 02/16/2024, 10:36 AM * Diana Whitehead RPh - 02/16/2024 8:17 AM EDT Coumadin Clinic (region specific) Objective Current Warfarin Dose As of 02/16/2024 Warfarin maintenance plan: 0 mg every Mon; 2.5 mg (5 mg x 0.5) all other days INR Result As of 02/16/2024 INR goal: 2.0-3.0 INR used for dosin.6 (02/15/2024) Assessment & Plan Warfarin Plan As of 02/16/2024 Full warfarin instructions: 0 mg every Mon; 2.5 mg all other days No change documented: Diana Whitehead RPh Next INR check: 03/07/2024 Repeat PT/INR in 3 week(s) Weekly dose: not changed Additional Dosing Information: Description GML M// Tech to contact patient with dose instructions as noted. Diana Whitehead RPh 02/16/2024, 8:17 AM documented in this encounter Plan of Treatment Upcoming Encounters Date Type Department Care Team (Late st Contact Info) Description 02/19/2024 11:00 AM EDT Office Visit Cardiology, [address] [place] [address] Dasia Cohen CRNP [address] [place] [address] 03/11/2024 10:15 AM EDT Office Visit Ophthalmology, [facility] [address] [place] [address] Kodi Souza DO [address] [place] [address] 03/30/2024 10:20 AM EDT Office Visit General Internal Medicine [facility] [place] 200 [facility] [place] [address] Angeli Lee MD 200 [facility] [place] [address] 05/27/2024 2:20 PM EST Office Visit Nephrology, [facility] 200 [facility] [place], [place] [address] Levy Garcia MD 200 [facility] [place], [place] [address] Health Maintenance Due Date Last Done Comments [...] this encounter Medical Devices Implanted Type Area Research Microbiologist Device Identifier Shelf Expiration Date Model / Serial / Lot Lens Intraoc 25.5 - [id number] - [id number] Implanted:Qty: 1 on 09/03/2021 by Jeffrey Rodriguez MD at OR [facility] Left: Eye BAUSCH & LOMB 09/28/2025 [id number] / [id number] / [id number] Lens Intraoc 24.5 - [id number] - [id number] Implanted:Qty: 1 on 09/17/2021 by Jeffrey Rodriguez MD at OR [facility] Right: Eye BAUSCH & LOMB 10/29/2025 [id number] / [id number] / [id number] documented as of this encounter Visit Diagnoses Diagnosis Atrial fibrillation, unspecified type (HCC)- Primary documented in this encounter Care Teams Tapeman Relationship Specialty Start Date End Date Angeli Lee MD [address] [place] [address] PCP - General 11/02/08 documented as of this encounter
--- OUTSIDE RECORDS SUMMARY | 2024-05-21 10:48 | External Medical Summary | Summary of Care ---
Author Name Unknown Organization [facility] Address [address] [facility] [address] Phone [phone] Care Team Providers Care Principal Data Architect Name Role Phone Angeli Lee MD Primary Care Provider + Reason for Visit * Reason Onset Date Comments Advice 12/30/2023 noel Encounter Details Date Type Department Care Team (Late st Contact Info) Description 12/30/2023 Telephone Cardiology, [facility] [address] [place] [address] Dasia Cohen CRNP [address] [place] [address] Advice (noel) Allergies No known active allergiesdocumented as of this encounter (statuses as of 01/06/2024) Medications Medication Sig Dispensed Refills Start Date [...] at bedtime . Active Cholecalciferol (VITAMIN D3) 90373 units TABS Take 1 Tab by mouth every evening. Active Cyanocobalamin (VITAMIN B12) 1000 MCG TBCR Take by mouth at bedtime . Active Misc Natural Products (APPLE CIDER VINEGAR DIET) TABS Take by mouth. Active Apple Cider Vinegar 500 MG Oral Tablet Take by mouth 1 Tablet daily with dinner . Active Nystatin 235608 UNIT/GM External Powder (Nystop) Apply topically to [...] in the morning. In the morning.. 10/05/2023 4 Discontinue d(Refill) Ezetimibe 10 MG Oral Tablet (Zetia)Indications :Dyslipidemia, goal LDL below 100 Take 1 Tablet by mouth in the morning. In the morning.. 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 Overview: ICD-9 Code Update nursing home current use of anticoagulant therapy 1 07/17/2002 Anticoagulation management encounter 11/24/2001 Atrial fibrillation 05/26/2001 documented as of this encounter (statuses as of 01/06/2024) Resolved Problems Problem Noted Date Diagnosed Date [...] as of this encounter (statuses as of 01/06/2024) Immunizations Name Administration Dates Next Due COVID-19 mRNA, LNP-s, No Pre serve, 2-Dose Series ([employer]) 11/25/2021,05/14/2021,07/28/2020,10/2020 COVID-19, LNP-s, No Preserve , Joseph-sucrose, Ages 12+ (Pfizer) 11/25/2021 COVID-19, MRNA-LNP, 23-24, P F, 30 MCG/0.3 mL, 12 YRS AND ABOVE, IM (SparkupReader-Comirnaty) 04/07/2023 DTaP Dipth/Tet/Acell Pertussis (Infanrix), Peds 10/31/2003 [...] encounter Miscellaneous Notes * Telephone Encounter - Nancy Neal CMA - 01/06/2024 10:08 AM EDT Spoke with Nessa. She is aware. Wali Bazan also aware that this was d/c and they will take her off auto refills. * Telephone Encounter - Dasia Cohen CRNP - 01/05/2024 4:17 PM EDT It appears the Zetia was refilled under auto-fills. This is to be discontinued. Patient is to continue on Pravastatin and Fenofibrate. Sorry for the confusion. I am glad she called to verify. * Telephone Encounter - Nancy Neal CMA - 01/05/2024 1:41 PM EDT Pt's daughter Nessa calling back regarding this. She just wants to make sure pt is supposed to be on 3 different cholesterol meds. She is taking Zetia, fenofibrate, and pravastatin. Pharmacist originally questioned it and said that was a lot of cholesterol meds. Daughter is not questioning it but would like to confirm this is what she is supposed to be on. * Telephone Encounter - Dasia Cohen CRNP - 01/01/2024 5:19 AM EDT New script sent. Thank you * Telephone Encounter - Dandre Garcia OSA - 12/30/2023 12:14 PM EDT Person calling: Nessa Relationship to patient: Daughter Number to return call: [phone] Reason for call(brief): Zetia medication Pharmacy: [facility] Provider Name:Noel Detailed message to office:Daughter called in stating that they were notified that her zetia medication has been discontinued and they are concerned as to what she's supposed to do after she stops. She has 7 pills left. Please call to advise. documented in this encounter Plan of Treatment Upcoming Encounters Date Type Department Care Team (Late st Contact Info) Description 01/25/2024 7:00 AM EDT Laboratory Lab Mobile Phlebotomy [facility] [address] [facility] [place] [address] [facility], Gml Mobile Home Draw [address] [place] [address] 01/26/2024 6:00 AM EDT Anticoagulation Centralized Clinical Pharmacy Services, Moe Mohamud [address] [place] [address] [place] [address] [place] [address] 02/05/2024 10:35 AM EDT Cardiac Studies Cardiac Studies, [facility] [address] [place] [address] 02/19/2024 11:00 AM EDT Office Visit Cardiology, [facility] [address] [place] [address] Dasia Cohen CRNP 132 [place] [address] 03/11/2024 10:15 AM EDT Office Visit Ophthalmology, [facility] [address] [place] [address] Kodi Souza, 132 [place] [address] 03/30/2024 10:20 AM EDT Office Visit General Internal Medicine [facility] [place] 200 [facility] [place], [place] [address] Angeli Lee MD 200 [facility] [place], [place] [address] 05/27/2024 2:20 PM EST Office Visit Nephrology, [facility] [place], [place] [address] Levy Garcia MD 200 [facility] [place], [place] [address] Health Maintenance Due Date Last Done Comments [...] this encounter Medical Devices Implanted Type Area Etch Operator Semiconductor Wafers Device Identifier Shelf Expiration Date Model / Serial / Lot Lens Intraoc 25.5 - [id number] - [id number] Implanted:Qty: 1 on 09/03/2021 by Jeffrey Rodriguez MD at OR [facility] Left: Eye BAUSCH & LOMB 09/28/2025 [id number] / [id number] / [id number] Lens Intraoc 24.5 - [id number] - [id number] Implanted:Qty: 1 on 09/17/2021 by Jeffrey Rodriguez MD at OR [facility] Right: Eye BAUSCH & LOMB 10/29/2025 [id number] / [id number] / [id number] documented as of this encounter Visit Diagnoses Diagnosis DYSLIPIDEMIA, GOAL LDL BELOW 100- Primary Other and unspecified hyperlipidemia documented in this encounter Care Teams Principal Data Architect Relationship Specialty Start Date End Date Angeli Lee MD 200 [facility] [place] [address] PCP - General 11/02/08 documented as of this encounter
--- OUTSIDE RECORDS SUMMARY | 2024-05-21 10:48 | External Medical Summary ---
Author Name Unknown Address Unknown Organization K0G:[facility] [address] [place] [address] Laboratory Report Ordering Provider Test Date Status CHANOMICHAEL 01/04/2024 07:16:00 Final Standing order for pt/inr. < br/>Please draw pt/inr every 1 to 4 weeks as requested
Results to [facility] Anticoagulation Clinic

Warfarin Therapy
INR: 2.0-3.0 conventional anticoagulation
INR: 2.5-3.5 high intensity anticoagulation Observation Date Value Abnormality Reference (Units ) Status PT 01/04/2024 07:16:00 25.0 Above high normal 11 .6-15.2 (seconds) Final INR 01/04/2024 07:16:00 2.2 Above high normal 0. 8-1.2 Final Performing Location [facility] [place] [address]
--- OUTSIDE RECORDS SUMMARY | 2024-05-21 10:48 | External Medical Summary | Summary of Care ---
Author Name Unknown Organization [facility] Address [address] [place] [facility] [place] [place] [place] [address] Phone [phone] Care Team Providers Care Station Gateman Name Role Phone Angeli Lee MD Primary Care Provider + Reason for Visit * Reason Comments eRx-Medication Refill Encounter Details Date Type Department Care Team (Late st Contact Info) Description 01/04/2024 Refill General Internal Medicine [facility] 200 [facility] [place] [address] Angeli Lee MD 200 [place] [address] Allergies No known active allergiesdocumented as of this encounter (statuses as of 01/07/2024) Medications Medication Sig Dispensed Refills Start Date [...] at bedtime . Active Cholecalciferol (VITAMIN D3) 69657 units TABS Take 1 Tab by mouth [...] 09/03/2023 Active Fenofibrate 48 MG Oral Tablet (Tricor)Indicatio ns:Dyslipidemia, goal LDL below 100 Take 1 Tablet by mouth in the morning. 30 Tablet 5 10/07/2023 Active glipiZIDE 5 MG Oral Tablet (Glucotrol) TAKE 1 TABLET EVERY MORNING AND 1 TABLET BEFORE BEDTIME (TAKE 30 MINUTES BEFORE MEALS). 180 Tablet 1 11/10/2023 Active Nystatin 930811 UNIT/GM External Powder (Nystop) APPLY TOPICALLY TO AFFECTED AREA 3 TIMES A DAY. APPLY FOR ABDOMINAL FOLDS TWICE A DAY NEEDED 60 g 3 01/07/2024 Active Nystatin 400055 UNIT/GM External Powder (Nystop) Apply topically to affected area 3 times a day. Apply to affected area and abdominal folds twice a day as needed. 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 1 07/17/2002 Anticoagulation management encounter 11/24/2001 Atrial fibrillation 05/26/2001 documented as of this encounter (statuses as of 01/07/2024) Resolved Problems Problem Noted Date Diagnosed Date [...] update of inactive term High triglycerides 08/18/2002 HTN, goal below 140/90 05/26/200106/27 Overview: Per [...] as of this encounter (statuses as of 01/07/2024) Immunizations Name Administration Dates Next Due COVID-19 mRNA, LNP-s, No Pre serve, 2-Dose Series (MILI) 11/25/2021,05/14/2021,07/28/2020,10/2020 COVID-19, LNP-s, No Preserve , Joseph-sucrose, Ages 12+ (Pfizer) 11/25/2021 COVID-19, MRNA-LNP, 23-24, P F, 30 MCG/0.3 mL, 12 YRS AND ABOVE, IM (PFIZER-Comirnat) 04/07/2023 DTaP Dipth/Tet/Acell Pertussis (Infanrix), Peds 10/31/2003 [...] Telephone Encounter - Angeli Lee MD - 01/07/2024 4:50 PM EDTSigned Prescriptions: Disp Refills Nystatin 183663 UNIT/GM External Powder (N*60 g 3 Sig: APPLY TOPICALLY TO AFFECTED AREA 3 TIMES A DAY. APPLY FOR ABDOMINAL FOLDS TWICE A DAY NEEDED Authorizing Provider: ANGELI LEE * Telephone Encounter - Ct Gardner CMA - 01/06/2024 1:54 PM EDTPending Prescriptions: Disp Refills Nystatin 841594 UNIT/GM External Powder [P*60 g 3 Sig: APPLY TOPICALLY TO AFFECTED AREA 3 TIMES A DAY. APPLY FOR ABDOMINAL FOLDS TWICE A DAY NEEDED * Telephone Encounter - Ct Gardner CMA - 01/06/2024 1:53 PM EDT Did you pend patient's preferred pharmacy and medication before forwarding?yes Pharmacy: [facility] [address] Pending Prescriptions: Disp Refills Nystatin 743563 UNIT/GM External Powder (*60 g 3 Sig: APPLY TOPICALLY TO AFFECTED AREA 3 TIMES A DAY. APPLY FOR ABDOMINAL FOLDS TWICE A DAY NEEDED Last Visit: 09/22/2023 (in office), Visit date not found (telemedicine) Next Visit: 03/30/2024 If no future appointments scheduled, and last appointment is greater than a year ago, please schedule patient for a follow-up appointment Last date the medication was ordered: 12/26/22 Is this request for a controlled substance?No [...] 09:35 AM TSH 2.88 10/28/2018 11:14 AM LDLCALC 64 04/08/2022 07:12 AM LDLCALC UNINTERPRETABLE RESULT 10/28/2018 11:14 AM LDLCALC 79. 08/20/1996 09:35 AM LDLDIRECT 29 09/17/2023 07:26 AM LDLDIRECT 62 10/18/2019 11:31 AM LDLDIRECT 56 05/04/2018 09:25 AM ALT 26 09/17/2023 07:26 AM ALT 12 12/13/2019 03:32 PM HGBA1C 7.3 (H) 09/17/2023 07:26 AM HGBA1C 6.9 (H) 05/03/2020 10:41 AM * Telephone Encounter - Walter Blum - 01/04/2024 7:33 PM EDTPending Prescriptions: Disp Refills Nystatin 551746 UNIT/GM External Powder [P*60 g 3 Sig: APPLY TOPICALLY TO AFFECTED AREA 3 TIMES A DAY. APPLY FOR ABDOMINAL FOLDS TWICE A DAY NEEDED documented in this encounter Plan of Treatment Upcoming Encounters Date Type Department Care Team (Late st Contact Info) Description 01/25/2024 7:00 AM EDT Laboratory Lab Mobile Phlebotomy [facility] [address] [place] [address] M[facility], Gml Mobile Home Draw [address] [facility] [place] [address] 01/26/2024 6:00 AM EDT Anticoagulation Centralized Clinical Pharmacy Services, Moe Mohamud [address] [place] [address] [place] [address] [facility], [address] [place] [address] 02/05/2024 10:35 AM EDT Cardiac Studies Card[facility] Studies, [facility] [place] [address] 02/19/2024 11:00 AM EDT Office Visit Cardiology, [facility] 132 [facility] [place] [address] Dasia Cohen CRNP [address] [place] [address] 03/11/2024 10:15 AM EDT Office Visit Ophthalmology, [facility] 132 [facility] [place] [address] Kodi Souza DO [address] [place] [address] 03/30/2024 10:20 AM EDT Office Visit [facility] [place] [address] [place] [address] Angeli Lee MD [address] [place] [address] 05/27/2024 2:20 PM EST Office Visit Nephrology, [facility] [address] [place] [address] Levy Garcia MD [address] [place] [address] Health Maintenance Due Date Last Done Comments [...] this encounter Medical Devices Implanted Type Area Certified Mortician Device Identifier Shelf Expiration Date Model / Serial / Lot Lens Intraoc 25.5 - [id number] - [id number] Implanted:Qty: 1 on 09/03/2021 by Jeffrey Rodriguez MD at OR [facility] Left: Eye BAUSCH & LOMB 09/28/2025 [id number] / [id number] / [id number] Lens Intraoc 24.5 - [id number] - [id number] Implanted:Qty: 1 on 09/17/2021 by Jeffrey Rodriguez MD at OR [facility] Right: Eye BAUSCH & LOMB 10/29/2025 [id number] / [id number] / [id number] documented as of this encounter Care Teams Station Gateman Relationship Specialty Start Date End Date Angeli Lee MD 200 [place] [address] PCP - General 11/02/08 documented as of this encounter
--- OUTSIDE RECORDS SUMMARY | 2024-05-21 10:48 | External Medical Summary | Summary of Care ---
Author Name Unknown Organization [facility] Address [address] [address] Phone [phone] Care Team Providers Care Grab Jack Man Name Role Phone Angeli Lee MD Primary Care Provider + Reason for Visit * Reason Onset Date Comments Follow Up Medication Administration 02/19/2024 Flu an d/or Pneumo Inj Encounter Details Date Type Department Care Team (Late st Contact Info) Description 02/19/2024 11:00 AM EDT Office Visit [facility]iology, [facility] [address] [facility] [place] [address] Dasia Cohen CRNP [address] [facility] [place] [address] Chronic atrial fibrillation (HCC)*; 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 Active Cholecalciferol (VITAMIN D3) 76778 units TABS Take 1 Tab by mouth [...] Oral Tablet Extended Release 24 Hour (toPROL XL)Indications:[facility] jose atrial fibrillation (HCC),HTN, goal below 140/90 [...] MEALS). 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 1 07/17/2002 Anticoagulation management encounter 11/24/2001 Atrial fibrillation 05/26/2001 documented as of this encounter (statuses as of 02/19/2024) Resolved Problems Problem Noted Date Diagnosed Date [...] as of this encounter (statuses as of 02/19/2024) Immunizations Name Administration Dates Next Due COVID-19 mRNA, LNP-s, No Pre serve, 2-Dose Series (TripLingo) 11/25/2021,05/14/2021,07/28/2020,0210/2020 COVID-19, LNP-s, No Preserve , Joseph-sucrose, Ages 12+ (Pfizer) 11/25/2021 COVID-19, MRNA-LNP, 23-24, P F, 30 MCG/0.3 mL, 12 YRS AND ABOVE, IM [facility]) 04/07/2023 DTaP Dipth/Tet/Acell Pertussis (Infanrix), Peds 10/31/2003 [...] Sign Reading Time Taken Comments Blood Pressure 142/84 02/19/2024 10:54 AM EDT Pulse 80 02/19/2024 10:54 AM EDT Temperature - - Respiratory Rate 20 02/19/2024 10:54 AM EDT Oxygen Saturation - - Inhaled Oxygen Concentration - - Weight 117.7 kg (259 lb 8 oz) 02/19/2024 10:54 A M EDT Height - - Body Mass Index 47.46 03/10/2023 10:06 AM EDT documented in this encounter Patient Instructions * Patient Instructions* Sumi Shepherd CMA - 02/19/2024 10:56 AM EDT ~~PATIENT INSTRUCTIONS FOR FLU SHOT~~ Possible side effects of influenza vaccine, (flu shot), are usually mild and include: 1. Soreness or redness at injection site 2. Low grade fever 3. Body aches You may use Tylenol/Acetaminophen as needed for these symptoms. LET YOUR DOCTOR KNOW IMMEDIATELY IF YOU HAVE DIFFICULTY BREATHING OR SWALLOWING, EXPERIENCE ITCHINGOF FEET OR HANDS, HAVE SWELLING OF EYES, FACE OR INSIDE OF NOSE. documented in this encounter Progress Notes * Dasia Cohen CRNP - 02/19/2024 11:00 AM EDT 02/19/2024 Cardiology Follow Up Primary Health Service Worker: Dr. Gonsales Cardiac Problems: 1. Persistent atrial fibrillation on chronic Coumadin therapy. 2. Degenerative joint disease with ambulatory dysfunction and frequent falls. 3. Chronic venous insufficiency. 4. Diabetes. 5. Hyperlipidemia. 6. Hypertension. 7. Pulmonary hypertension 8. Diastolic dysfunction with normal LV systolic function 9. Stage IIIB chronic kidney disease HPI: Angela Lazar is a 89 year old female presents for routine cardilogy follow up. Last seen in the office by the undersigned 09/08/2023 noting improvement in her breathing and fluid levels. CHF teaching as well as diabetic diet teaching was provided at length because of gradual weight gain concerns. Patient was recommended for labs, Echocardiogram and nutrition consult. Patient presents today with daughter. Concened that she is feeling "puffy". Patient feels that her clothes are feeling fine. Review of weights shows that she has gained 1 lb since August 2023. She hassome dependent edema of her right thigh; however, has very decreased mobility of her right leg despite physical therapy. She jokes and says "its permanently asleep" They continue to make positive dietary changes to reduce sodium intake and also reduce her overall carb intake due to diabetes. BP controlled. Recent echo reviewed with patient and daughter. Normal LVEF, moderate MR which remains unchanged from prior. Compliant on all medication therapies with no untoward effects Would like flu shot today. REVIEW OF SYSTEMS: See HPI for pertinent positives. All others negative other than those noted in the HPI. CONSTITUTIONAL: No change in weight, No weakness, No fatigue and No fevers, No sweats or chills. PULMONARY: No cough, sputum, or hemoptysis, No wheezing, No shortness or breath and No recent change in breathing. CARDIOVASCULAR: No chest pain, No dyspnea on exertion, No edema, No palpitations and No syncope. GASTROINTESTINAL: No abdominal pain, No change in bowel habits, No significant heartburn, No nausea, No vomiting, No diarrhea, No constipation, No blood in stools or black tarry stools. No dysphagia. HEMATOLOGIC: No abnormal bleeding and No bruising. NEUROLOGICAL: Normal balance, No headaches and No weakness. Review of patient's allergies indicates: No Known Allergies Current Outpatient Medications Medication Sig Dispense Refill ASPIRIN 81 MG PO TBEC Take by mouth at bedtime . Cholecalciferol (VITAMIN D3) 51342 units TABS Take 1 Tab by mouth every evening. Cyanocobalamin (VITAMIN B12) 1000 MCG TBCR Take by mouth at bedtime . Misc Natural Products (APPLE CIDER VINEGAR DIET) TABS Take by mouth. Apple Cider Vinegar 500 MG Oral Tablet [...] morning and 1 Capsule in the evening. Metoprolol Succinate ER 50 MG Oral Tablet [...] MOUTH IN THE MORNING 90 Tablet 3 Fenofibrate 48 MG Oral Tablet (Tricor) Take 1 Tablet by mouth in the morning. 30 Tablet 5 glipiZIDE 5 MG Oral Tablet (Glucotrol) TAKE 1 TABLET EVERY MORNING AND 1 TABLET BEFORE BEDTIME (TAKE 30 MINUTES BEFORE MEALS). 180 Tablet 1 Nystatin 842947 UNIT/GM External Powder (Nystop) APPLY TOPICALLY TO AFFECTED AREA 3 TIMES A DAY. APPLY FOR ABDOMINAL FOLDS TWICE A DAY NEEDED 60 g 3 GLUCOMETER ELITE CLASSIC KIT check sugar 2-3 times a week. one 0 FREESTYLE LITE STRP check sugars tid 1 11 FREESTYLE LANCETS MISC check blood sugars 3 times daily 1 box 11 DIURETIC TITRATION PLAN If no improvement on day 3, contact heart failure managing provider. 1 Each0 Current Facility-Administered Medications Medication Dose Route Frequency Provider Last Rate Last Admin Faricimab-svoa (Vabysmo) intravitreal inj 6 mg 6 mg Intravitreal PRN Kodi Souza, DO 6 mgat 12/18/23 1020 ROPivacaine (Naropin) inj 1.5 mg 1.5 mg Injection PRN Kodi Souza, DO 1.5 mg at 12/18/23 1019 Past Medical History: Diagnosis Date Atrial fibrillation [...] Osteoarthrosis Osteoarthritis Traumatic amputation of toe (HCC) 1940 Amputation big toe left foot traumatic Venous insufficiency Venous Insufficiency Family History Problem Relation Name Age of Onset Heart Disorder Father [place] age 53 Neurological Disorder Mother Accident age 20 Hypertension Sister Heart Disorder Brother [place] age 53 No Past Hx Sister Thyroid Disorder Granddaughter thyroid cancer Lymphoma Grandson non hodgkins lymphoma Social History Socioeconomic History Marital status: Spouse [...] the Last Year: Never true Social Connections OBJECTIVE/PHYSICAL EXAMINATION: BP 142/84 (BP Site: Right Arm, BP Position: Sitting) | Pulse 80 | Resp 20 | Wt 117.7 kg (259 lb 8 oz) | BMI 47.46 kg/m | BSA 2.27 m General: No acute distress. A+Ox3. HEENT: Normocephalic. Atraumatic. PERRL. EOMI. Conjunctiva and sclera clear. NECK: No carotid bruits. No JVD. Carotid upstrokes are brisk. Heart: Irregularly irregular S1 and S2 noted. +2/6 systolic murmur. No rubs or gallops. PMI non displaced. Lungs: Clear to auscultation. No wheezes.No rhonchi. No rales. Abdomen: Normal bowel sounds. Soft. Nontender. No masses or organomegaly. No abdominal bruits. Extremities: No edema. No clubbing or cyanosis. Pulses: radial=2/4, posterior tibial=2/4, dorsalis pedis = 2/4. NEURO: No focal deficits. PSYCH: Appropriate affect and insight. DATA Labs & Imaging Reviewed Below: EKG 09/08/23: Atrial fibrillation with rapid ventricular response Right axis deviation Pulmonary disease Abnormal QRS-T angle, consider primary T wave abnormality Abnormal ECG When compared with ECG of 03-Sep-2022 10:40, Vent. rate has increased by 49 bpm The axis Shifted right Nonspecific T wave abnormality, worse in Lateral leads QT has lengthened Ventricular Rate: 109 EKG 09/03/2022 Atrial fibrillation Rightward axis Nonspecific ST and T wave abnormality Abnormal ECG When compared with ECG of 31-JAN-2021 13:44, Nonspecific T wave abnormality now evident in Anterior leads Ventricular Rate: 60 EKG 01/31/2021 Atrial fibrillation with premature ventricular or aberrantly conducted complexes Nonspecific ST abnormality Abnormal QRS-T angle, consider primary T wave abnormality Abnormal ECG When compared with ECG of 08-FEB-2018 10:48, Nonspecific T wave abnormality now evident in Inferior leads T wave inversion no longer evident in Anterior leads Ventricular Rate: 70 Echocardiogram 02/05/2024: Interpretation Summary The left ventricular [...] indirect measurement are lower. Otherwise no change Echocardiogram 03/13/2023 The LV wall thickness is mildly increased (concentric). The left ventricular wall motion is normal. The qualitative LV ejection fraction is 50-54% (normal). The left atrium is severely enlarged (>48 ml/m^2,). The right atrium is severely enlarged. Mild aortic valve stenosis is present. Moderate mitral regurgitation is present. Moderate tricuspid regurgitation is present. Mild pulmonary hypertension is present. The estimated pulmonary artery systolic pressure is 44mm Hg. Echocardiogram 03/21/2019 The left ventricular cavity size is normal. The LV wall thickness is mildly increased (concentric). The left ventricular wall motion is normal. The qualitative LV ejection fraction is 50-54% (normal). The left atrium is severely enlarged. The right atrium is severely enlarged. The aortic valve is moderately calcified. Mild aortic valve stenosis is present. Mild mitral regurgitation is present. Moderate tricuspid regurgitation is present. Moderate pulmonary hypertension is present. The estimated pulmonary artery systolic pressure is 45-50mm Hg. ASSESSMENT/PLAN: 89 year old year old female 1. Chronic atrial fibrillation (HCC) 2. halfway current use of anticoagulant therapy -Asymptomatic -Euvolemic on exam, weights stable. -Continue Toprol xl, Diltiazem and digoxin. -Continue Warfarin 3. Chronic heart failure with preserved ejection fraction (HCC) -Euvolemic, weights stable. -CHF teaching -Continue Furosemide, Lisinopril, and Toprol xl as part of HF regimen -Echo stable. Will repeat at one year 4. HTN, goal below 140/90 -Controlled. -Reinforced low sodium diet -Continue Diltizem, Toprol xl and Lisinpril 5. DYSLIPIDEMIA, GOAL LDL BELOW 100 -Continue fenofibrate and ASA -Recommend yearly lipid panel 6. Type 2 diabetes mellitus with hemoglobin A1c goal of less than 7.0% ([facility]) -as per management of PCP 7. Need for prophylactic vaccination and inoculation against influenza - INFLUENZA VAC., TRIVALENT, HD, PF, 65 AND ABOVE, 0.5 ML IM (FLUZONE HD) DISPOSITION: Follow up 7 months or if symptoms worsen/fail to improve. All questions were answered to the patients satisfaction. Patient advised to report to ED with any and all emergencies. The patient agrees to the above plan and will call with additional questions or concerns. [facility] [address] [id number] I spent a total of 35 minutes on the date of service in preparation, delivery, and documentation ofthe care provided to Angela Lazar excluding any time spent in the performance of separately billed services. This chart was completed in part utilizing YES.TAP Speech Voice Recognition Software. Grammatical errors, random word insertions, pronoun errors, and incomplete sentences are an occasional consequence of this system due to software limitations, ambient noise, and hardware issues. Any formal questions or concerns about the content, text, or information contained within the body of this dictation should be directly addressed to the provider for clarification. * Sumi Shepherd CMA - 02/19/2024 10:55 AM EDT PRE - ADMINISTRATION DOCUMENTATION Are you experiencing any cold symptoms or fever? No Have you had Guillain-[place] Syndrome (an illness that causes paralysis) within the last 6 weeks? No Have you had the flu shot in the past? YES Have you ever had a reaction to the flu shot? No Sumi Shepherd CMA, 02/19/2024 10:55 AM Immunization Administration Documentation Time Out Procedure Performed: Yes Patient Identified (Ask Name/Date of ): Yes Does the patient have a fever greater than 101 degrees today? No Patient allergic to latex? No VFC Stock: No Immunization(s) verified: Yes, Immunization Name: Flu, VIS Sheet(s) given: Yes Verified Side and Site: Yes Verified Shot(s) with Parent(s)/Patient: Yes documented in this encounter Nursing Notes * Sumi Shepherd CMA - 02/19/2024 10:54 AM EDT Examination Room: 4 Name: Angela Lazar Date of : (1935). Reason for Visit: follow up Interim Hospitalization(s): denies Problems/Concerns: swelling of legs, arms, and face + weight gain Chest Pain/SOB: denies [facility] Discussed: Yes [facility] is a way you can talk to your provider online through e-mail. Would you like to sign up? I can activate it for you? ALREADY ACTIVE Patient was instructed to not get up on the exam table until directed and assisted by their provider; patient is to remain seated in the chair/ wheelchair/ exam table for fall prevention and safety reasons. Patient is aware to have assistance to step down off exam table with personnel. Patient voiced full comprehension of instructions. documented in this encounter Plan of Treatment Upcoming Encounters Date Type Department Care Team (Late st Contact Info) Description 03/07/2024 7:00 AM EDT Laboratory Lab Mobile Phlebotomy [facility] [address] [place] [address] [facility] Draw [address] [place] [address] 03/08/2024 6:00 AM EDT Anticoagulation [facility], Moe Mohamud [address] [place] [address] [place] [address] [facility], [address] [place] [address] 03/11/2024 10:15 AM EDT Office Visit Ophthalmology, [facility] [address] [place] [address] Kodi Souza, [address] [place] [address] 03/30/2024 10:20 AM EDT Office Visit General Internal Medicine [facility] [address] [facility] [place] [address] Angeli Lee MD [address] [facility] [place] [address] 05/27/2024 2:20 PM EST Office Visit Nephrology, [facility] [address] [place] [address] Levy Garcia MD [address] [facility] [place], [place] [address] 09/09/2024 11:00 AM EDT Office Visit Cardiology, [facility] [address] [place] [address] Dasia Cohen CRNP [address] [place] [address] Health Maintenance Due Date Last Done Comments [...] this encounter Medical Devices Implanted Type Area Ham Trimmer Device Identifier Shelf Expiration Date Model / Serial / Lot Lens Intraoc 25.5 - [id number] - [id number] Implanted:Qty: 1 on 09/03/2021 by Jeffrey Rodriguez MD at [facility] Left: Eye [employer] 09/28/2025 [id number] / [id number] / [id number] Lens Intraoc 24.5 - [id number] - [id number] Implanted:Qty: 1 on 09/17/2021 by Jeffrey Rodriguez MD at OR [facility] Right: Eye [employer] 10/29/2025 [id number] / [id number] / [id number] documented as of this encounter Visit Diagnoses Diagnosis Chronic atrial fibrillation (HCC)- Primary Atrial fibrillation halfway current use of anticoagulant therapy Chronic heart failure with preserved ejection fraction (HCC) HTN, goal below 140/90 Unspecified essential hypertension DYSLIPIDEMIA, GOAL LDL BELOW 100 Other and unspecified hyperlipidemia Type 2 diabetes mellitus with hemoglobin A1c goal of less than 7.0% (HCC) Need for prophylactic vaccination and inoculation against influenza documented in this encounter Care Teams Grab Jack Man Relationship Specialty Start Date End Date Angeli Lee MD [address] [place] [address] PCP - General 11/02/08 documented as of this encounter
--- OUTSIDE RECORDS SUMMARY | 2024-05-21 10:48 | External Medical Summary ---
Author Name Unknown Address Unknown Organization [id number] [place] [address] Laboratory Report Ordering Provider Test Date Status MICHAEL MADDEN 01/25/2024 07:19:00 Final Standing order for pt/inr. < br/>Please draw pt/inr every 1 to 4 weeks as requested
Results to [facility]

Warfarin Therapy
INR: 2.0-3.0 conventional anticoagulation
INR: 2.5-3.5 high intensity anticoagulation Observation Date Value Abnormality Reference (Units ) Status PT 01/25/2024 07:19:00 27.0 Above high normal 11 .6-15.2 (seconds) Final INR 01/25/2024 07:19:00 2.5 Above high normal 0. 8-1.2 Final Performing Location [facility] - [address] [place] [address]
--- NOTE | 2024-05-21 10:49 | Emergency Department Note ---
Impression & Plan Diabetic foot ulcer, Diabetic infection of left foot, Acute hyperglycemia, TREMAYNE (acute kidney injury), Anemia ED Provider Note NAME: KATIA CHENG AGE: 89 SEX: F : 1935 ARRIVES VIA: Ambulance INFORMANT: Patient, [id number] ED PROVIDER(S): Rubén Warner MD CHIEF COMPLAINT: Foot wound MEDICAL DECISION MAKING: Patient presents due to concern for bilateral feet wounds most prominent left heel. IV was established and blood work is obtained along with plain x-ray of the left foot as this is the more significant erosion. Patient was also started on cefepime and Flagyl. No obvious abscess and wound culture was obtained. The patient does have surrounding cellulitic changes. Patient with a normal white count hemoglobin of 10.9. The patient's platelet count is unremarkable. Kidney function with creatinine 2.8 which is new from comparison from October of last year at 1.1. Lactate normal. Procalcitonin is not elevated. X-ray does not show evidence of obvious osteomyelitis. Informed the patient of the patient's family bedside of the findings. Given the patient's TREMAYNE cellulitis and foot wounds without any prior care do believe that she would benefit from inpatient treatment. I did speak with Dr. Sepulveda and the patient was admitted to the medicine service. Discussion w/ other healthcare providers: Dr. Sepulveda inpatient medicine service Prior /Outside records reviewed: None Differential diagnosis: Cellulitis, abscess, MRSA infection, DVT, necrotizing fasciitis, dermatitis, drug eruption, allergic reaction, as well as other pathologies were considered. Diagnostics, as interpreted by me: ECG: A-fib, rate of 90, normal QRS duration, normal axis no obvious STEMI. Cardiac monitoring: An order was placed for continuous cardiac monitoring. The monitor shows a rate of 90 with irregularly irregular rhythm. Patient was placed on pulse oximetry Medical decision rules: None Imaging studies: I informally interpreted the patient's foot x-ray shows absent left first phalanx without obvious fracture with formal report to follow. HPI: Patient presents with [id number] due to concerns for bilateral lower extremity wounds. They began towards the end of April but have gotten progressively worse. The patient is primarily wheelchair-bound does use her heel send to the floor in order to try and move. Patient does suffer from neuropathy and is unable to feel her feet. The patient is a known diabetic but reportedly her A1c was less than 5 was taken off her diabetes medications and noted that her sugar was in the 230s this morning. Patient did have a yogurt today. No reported fevers or chills no chest pain shortness of breath abdominal pain or nausea vomiting. Patient presented here today with her [id number] as they were concerned about the progressive worsening of her wounds. PAST MEDICAL HISTORY: See Below PAST SURGICAL HISTORY: See Below SOCIAL HISTORY: See Below HOME MEDICATIONS: See Below ALLERGIES: See Below VITALS: See Below PHYSICAL EXAMINATION: GENERAL: NAD, non-toxic. Wearing glasses. EYE EXAM: Normal conjunctiva. PERRL, no anisocoria and EOM's grossly intact w/o pain. OROPHARYNX: Moist mucus membranes, grossly normal dentition. NECK: Trachea midline, no stridor. Supple, no nuchal rigidity, no adenopathy, non-tender. No signs of meningismus. FROM of the neck with good chin to chest and neck extension. LUNGS: Clear to auscultation. Normal chest wall mechanics. HEART: NSR, no MRG. ABDOMEN: Abdomen soft, non-tender, no masses, no rebound or guarding. BACK: No CVA TTP. SKIN: No rashes and no bruising. UPPER EXTREMITIES: Upper extremities are grossly normal. LOWER EXTREMITIES: Bilateral venous stasis changes noted to bilateral shins. Absent left first phalanx. Open heel wound to the left foot, mild surrounding erythema and no fluctuance or drainage. Small 1 x 3 cm open area to the right lateral proximal foot. NEURO EXAM: A&O x3, cranial nerves II-XII grossly intact, normal speech, moves all 4 extremities. Past Med/Surg History Problem List (Updated 05/21/24 @ 13:38 by Rubén Warner MD) Anemia (Acute) TREMAYNE (acute kidney injury) (Acute) Acute hyperglycemia (Acute) Diabetic infection of left foot (Acute) Diabetic foot ulcer (Acute) Callus of foot (Acute) Hypomagnesemia (Acute) Abnormal urinalysis Ambulatory dysfunction (Acute) Hypertension (Acute) Type 2 diabetes mellitus (Acute) Diastolic dysfunction Persistent atrial fibrillation (Acute) Medical History History of breast cancer CKD (chronic kidney disease), stage III On warfarin therapy Surgical History History of total right knee replacement History of total left knee replacement History of total abdominal hysterectomy History of cholecystectomy S/P mastectomy, bilateral Family History Other Family history non-contributory Social History Smoking Status: Never smoker Do You Dip or Chew Tobacco: No; Hx Alcohol Use: Yes Alcohol type: wine Hx Substance Use: No Preferred Language: Estonian Communication Ability: Effective Drawer In Plain Loom Required: No Beliefs That Will Affect Care: None marital status: Current Living Situation: Spouse current occupational status: retired Feels Safe at Home: Yes Assistive Devices: Stair Lift, Walker, Wheelchair and Other Allergies Allergies Allergy/AdvReac Type Severity Reaction Status Date / Time No Known Allergies Allergy Verified 01/05/23 13:29 Home Meds Home Medications Medication Instructions Recorded Confirmed allopurinol 300 mg tablet 300 mg PO QAM 08/15/22 05/21/24 apple cider vinegar 500 mg tablet 500 mg PO PM 08/15/22 05/21/24 aspirin 81 mg tablet,delayed 81 mg PO HS 08/15/22 05/21/24 release cholecalciferol (vitamin D3) 125 10,000 unit PO QPM 08/15/22 05/21/24 mcg (5,000 unit) tablet (Vitamin D3) cyanocobalamin (vitamin B-12) 2,500 mcg PO HS 08/15/22 05/21/24 1,000 mcg tablet (Vitamin B-12) diltiazem HCl 120 mg 120 mg PO QAM 08/15/22 05/21/24 capsule,extended release 24 hr furosemide 40 mg tablet 40 mg PO QAM 08/15/22 05/21/24 pravastatin 40 mg tablet 40 mg PO HS 08/15/22 05/21/24 diphenhydramine 25 2 tab PO HS 11/16/22 05/21/24 mg-acetaminophen 500 mg tablet (Tylenol PM Extra Strength) vit C 250 mg-vit E 90 mg-zinc 40 1 tab PO BID 11/16/22 05/21/24 mg-copper 1 [id number] capsule (PreserVision AREDS-2) warfarin 2.5 mg tablet 2.5 mg PO UD 11/16/22 05/21/24 digoxin 250 mcg (0.25 mg) tablet 125 mcg PO UD 01/05/23 05/21/24 lisinopril 20 mg tablet 10 mg PO QAM 01/05/23 05/21/24 Pepcid 1 tab PO QAM 05/21/24 05/21/24 fenofibrate nanocrystallized 48 mg 48 mg PO QAM 05/21/24 05/21/24 tablet loratadine 10 mg tablet (Claritin) 10 mg PO DAILY 05/21/24 05/21/24 metoprolol succinate 50 mg 50 mg PO QAM 05/21/24 05/21/24 tablet,extended release 24 hr nystatin 100,000 unit/gram topical 1 applic topical TID PRN Other 05/21/24 05/21/24 powder Results & Data (ED) Vital Signs Vital Signs - 24 hr 05/21/24 11:00 05/21/24 11:00 05/21/24 11:01 Temperature 36.6 C Temperature Source Oral Pulse Rate 101 H 103 H Pulse Rate [Apical] 101 H Pulse Rhythm Irregular Irregular Pulse Rhythm [Apical] Irregular Pulse Strength Normal Pulse Strength [Apical] Normal Respiratory Rate 18 18 18 Respiratory Effort / Characteristics Non-Labored Non-Labored Respiratory Depth Normal Normal Respiratory Pattern Regular Regular Blood Pressure 167/127 H Blood Pressure [Right Arm] 167/127 H Blood Pressure Mean 140 Blood Pressure Mean [Right Arm] 140 Blood Pressure Position [Right Arm] Lying Pulse Oximetry 95 95 95 Oxygen Delivery Method Room Air Room Air Room Air Sepsis Recent Fever Within 48 Hours No Sepsis New/Unexplained Change in Mental Status No Sepsis Action Taken by Nursing No Action Required 05/21/24 12:01 Temperature Temperature Source Pulse Rate 92 H Pulse Rate [Apical] Pulse Rhythm Pulse Rhythm [Apical] Pulse Strength Pulse Strength [Apical] Respiratory Rate Respiratory Effort / Characteristics Respiratory Depth Respiratory Pattern Blood Pressure Blood Pressure [Right Arm] Blood Pressure Mean Blood Pressure Mean [Right Arm] Blood Pressure Position [Right Arm] Pulse Oximetry Oxygen Delivery Method Sepsis Recent Fever Within 48 Hours Sepsis New/Unexplained Change in Mental Status Sepsis Action Taken by Halfway Medications Current Medication List: was personally reviewed by me Laboratory Data Attestation: I reviewed the patient's lab results. 05/21/24 11:20 05/21/24 11:20 Lab Results 05/21/24 Range/Units 11:20 WBC 8.53 (4.8-10.8) K/ul RBC 3.79 L (4.20-5.40) M/uL Hgb 10.9 L (12.0-16.0) g/dl Hct 35.1 L (37.0-47.0) % MCV 92.6 (80.0-100.0) fL MCH 28.8 (25.0-34.0) pg MCHC 31.1 L (32.0-36.0) g/dL RDW Std Deviation 54.4 H (36.4-46.3) fL RDW Coeff of Eric 16.0 H (11.5-14.5) % Plt Count 285 (130-400) K/uL MPV 10.1 (9.4-12.4) fL Immature Gran % (Auto) 0.7 % Neut % (Auto) 79.4 % Lymph % (Auto) 9.3 % Miner % (Auto) 9.0 % Eos % (Auto) 1.2 % Baso % (Auto) 0.4 % Neut # (Auto) 6.78 H (1.40-6.50) K/uL Lymph # (Auto) 0.79 L (1.20-3.40) K/uL Miner # (Auto) 0.77 H (0.11-0.59) K/uL Eos # (Auto) 0.10 (0.00-0.50) K/uL Baso # (Auto) 0.03 (0.00-0.20) K/uL Immature Gran # (Auto) 0.06 (0.01-0.20) K/uL Sodium 135 L (136-145) mmol/L Potassium 4.7 (3.5-5.1) mmol/L Chloride 100 (98-107) mmol/L Carbon Dioxide 26 (21-32) mmol/L Anion Gap 9 (3-11) BUN 63 H (6-23) mg/dl Creatinine 2.83 H (0.6-1.2) mg/dl Est Cr Clr Drug Dosing 17.0 ml/min eGFR 15.55 BUN/Creatinine Ratio 22.3 H (10-20) Glucose 297 H (70-99(Fasting)) mg/dl Lactate 1.8 (0.4-2.0) mmol/L Calcium 10.2 (8.6-10.3) mg/dl Total Bilirubin 0.5 (0.2-1.0) mg/dl AST 13 (13-39) U/L ALT 12 (7-52) U/L Alkaline Phosphatase 75 (34-104) U/L Total Protein 7.5 (6.0-8.3) gm/dl Albumin 3.8 (3.4-5.0) gm/dl Globulin 3.7 (2.5-4.0) gm/dl Albumin/Globulin Ratio 1.0 (0.9-2) Procalcitonin 0.15 (0-0.5) ng/ml TSH 2.227 (0.300-4.500) uIu/ml Administered Medications Discontinued Medications Cefepime HCl (Maxipime 2000mg) 2,000 mg in 20 mls @ 5 mls/min IV NOW STA; Protocol Stop: 05/21/24 11:02 Last Admin: 05/21/24 11:49 Dose: 5 mls/min Documented By: PAKO Metronidazole (Metronidazole 500 Mg Tab) 500 mg PO NOW STA; Protocol Stop: 05/21/24 11:00 Last Admin: 05/21/24 11:50 Dose: 500 mg Documented By: PAKO Imaging Data Radiologist's Impression: Foot X-Ray 05/21/24 11:05 EXAM: Radiographs of the Left Foot Complete 3 Views INDICATION: Open wound. TECHNIQUE: Frontal, lateral and oblique views of the left foot. COMPARISON: No relevant prior studies available. FINDINGS: Bones/joints: The bones are demineralized. There has been resection of the first distal phalanx and portions of the first proximal phalanx. Mild to moderate diffuse joint space narrowing. No erosion or fracture. Soft tissues: Diffuse moderate soft tissue swelling noted. There is a bandage over the heel. Atherosclerotic calcification noted. No soft tissue gas collection or radiopaque foreign body within the patient. IMPRESSION: No plain radiographic evidence of osteomyelitis. Impression severe cellulitis. Bandaging over a soft tissue wound at the heel. ACT 112: Negative or not required by law. Electronically signed by Beulah Catalan 05-21-2024 11:19 AM Discharge Plan Visit Data Chief Complaint: Wound Stated Complaint: OPEN WOUNDS ON LOWER EXTREMITIES ED Provider: Rubén Warner Discharge Problem: Diabetic foot ulcer, Diabetic infection of left foot, Acute hyperglycemia, TREMAYNE (acute kidney injury), Anemia Forms Stand Alone Forms: My [facility] [employer] [facility] Prescriptions Prescriptions: No Action warfarin 2.5 mg Tablet 2.5 mg PO UD Rx Instructions: Thursday, Thursday, , Thursday, Thursday and Thursday pm diphenhydramine-acetaminophen [Tylenol PM Extra Strength] 25-500 mg Tablet 2 tab PO HS PreserVision AREDS-2 250-90-40-1 mg Capsule 1 tab PO BID furosemide 40 mg tablet 40 mg PO QAM pravastatin 40 mg tablet 40 mg PO HS cyanocobalamin (vitamin B-12) [Vitamin B-12] 1,000 mcg Tablet 2,500 mcg PO HS aspirin 81 mg Tablet,Delayed Release (Dr/Ec) 81 mg PO HS diltiazem HCl 120 mg capsule,extended release 24hr 120 mg PO QAM allopurinol 300 mg tablet 300 mg PO QAM apple cider vinegar 500 mg Tablet 500 mg PO PM cholecalciferol (vitamin D3) [Vitamin D3] 125 mcg (5,000 unit) Tablet 10,000 unit PO QPM digoxin 250 mcg (0.25 mg) tablet 125 mcg PO UD Rx Instructions: , and saturdays AM lisinopril 20 mg tablet 10 mg PO QAM metoprolol succinate 50 mg tablet extended release 24 hr 50 mg PO QAM nystatin 100,000 unit/gram powder 1 applic TOPICAL TID PRN (Reason: Other) loratadine [Claritin] 10 mg Tablet 10 mg PO DAILY fenofibrate nanocrystallized 48 mg tablet 48 mg PO QAM Pepcid 1 tab PO QAM Referrals Referrals: Angeli Lee MD [Primary Care Provider] - Discharge Problem: Diabetic foot ulcer Qualifiers: Diabetic foot ulcer location: heel Diabetes mellitus type: type 2 Laterality: l eft Non-pressure ulcer stage: limited to breakdown of skin Qualified Code(s): E 11.621 - Type 2 diabetes mellitus with foot ulcer; L97.421 - Non-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
--- OUTSIDE RECORDS SUMMARY | 2024-05-21 10:49 | External Medical Summary ---
Author Name Unknown Address Unknown Organization [id number] [address] - [address] [place] [address] Laboratory Report Ordering Provider Test Date Status MICHAEL MADDEN 12/14/2023 07:23:00 Final Standing order for pt/inr. < br/>Please draw pt/inr every 1 to 4 weeks as requested
Results to [facility]

Warfarin Therapy
INR: 2.0-3.0 conventional anticoagulation
INR: 2.5-3.5 high intensity anticoagulation Observation Date Value Abnormality Reference (Units ) Status PT 12/14/2023 07:23:00 28.1 Above high normal 11 .6-15.2 (seconds) Final INR 12/14/2023 07:23:00 2.6 Above high normal 0. 8-1.2 Final Performing Location [facility] - [address] [place] [address]
--- OUTSIDE RECORDS SUMMARY | 2024-05-21 10:49 | External Medical Summary | Summary of Care ---
Author Name Unknown Organization [facility] Address [address] [place] [address] Phone [phone] Care Team Providers Care Pump Servicer Supervisor Name Role Phone Angeli Lee MD Primary Care Provider + Reason for Visit * Reason Onset Date Comments Appointment 12/08/2023 Encounter Details Date Type Department Care Team (Late st Contact Info) Description 12/08/2023 Telephone Ophthalmology, [facility] [address], [place] [id number] Services, Scheduling [address] [place] [address] Appointment Allergies No known active allergiesdocumented as of this encounter (statuses as of 12/08/2023) Medications Medication Sig Dispensed Refills Start Date [...] at bedtime . Active Cholecalciferol (VITAMIN D3) 19939 units TABS Take 1 Tab by mouth every evening. Active Cyanocobalamin (VITAMIN B12) 1000 MCG TBCR Take by mouth at bedtime . Active Misc Natural Products (APPLE CIDER VINEGAR DIET) TABS Take by mouth. Active Apple Cider Vinegar 500 MG Oral Tablet Take by mouth 1 Tablet daily with dinner . Active Nystatin 695704 UNIT/GM External Powder (Nystop) Apply topically to [...] Oral Tablet Extended Release 24 Hour (toPROL XL)Indications:Clinical Transplant Coordinator jose atrial fibrillation (HCC),HTN, goal below 140/90 [...] BEFORE MEALS). 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 1 07/17/2002 Anticoagulation management encounter 11/24/2001 Atrial fibrillation 05/26/2001 documented as of this encounter (statuses as of 12/08/2023) Resolved Problems Problem Noted Date Diagnosed Date [...] as of this encounter (statuses as of 12/08/2023) Immunizations Name Administration Dates Next Due COVID-19 mRNA, LNP-s, No Pre serve, 2-Dose Series ([employer]) 11/25/2021,05/14/2021,07/28/2020,10/2020 COVID-19, LNP-s, No Preserve , Joseph-sucrose, Ages 12+ ([employer]) 11/25/2021 COVID-19, MRNA-LNP, 23-24, P F, 31 [...] Formulation 02/08/2020,03/03/2019,04/06/2018,1111/2016,02/14/2016,03/15/2015,02/17/20 14,03/17/2013,03/05/2012,02/27/2011,1 ,03/07/2009,03/15/2008,03/16,03/25/2006,03/31/2005, 4,04/13/2003,05/21/2000 Seasonal Influenza, PF, 6 [...] encounter Miscellaneous Notes * Telephone Encounter - Carmel Price RN - 12/08/2023 12:10 PM EDT Spoke to pt. Daughter -appt. Re-scheduled. Carmel Price RN 12/08/2023 12:11 PM * Telephone Encounter - Nataliia Tam OSA - 12/08/2023 10:55 AM EDT Pt's daughter calling to reschedule 10-12wk injection with Dr Souza. They cx'd the appt today due to pts being on hospice and asking for end of November for the appt. documented in this encounter Plan of Treatment Upcoming Encounters Date Type Department Care Team (Late st Contact Info) Description 12/14/2023 7:00 AM EDT Laboratory Lab Mobile Phlebotomy [facility] [address] [place] [address] [facility], [facility] Home Draw [address] [place] [address] 12/15/2023 6:00 AM EDT Anticoagulation [facility] Services, Moe Mohamud [address] [place] [address] [place] [address] [facility], [address] [place] [address] 12/18/2023 9:45 AM EDT Office Visit Ophthalmology, [facility] [address] [place] [address] Kodi Souza DO [address] [place] [address] 02/05/2024 10:35 AM EDT Cardiac Studies Cardiac Studies, [facility] [address] [place] [address] 02/19/2024 11:00 AM EDT Office Visit Cardiology, [facility] [address] [place] [address] Dasia Cohen CRNP [address] [place] [address] 03/30/2024 10:20 AM EDT Office Visit General Internal Medicine [facility] [place] [address] [facility] [place], [place] [address] Angeli Lee MD [address] [facility] [place], [place] [address] 05/27/2024 2:20 PM EST Office Visit Nephrology, [facility] [address] [facility] [place], [place] [address] Levy Garcia MD [address] [facility] [place], [place] [address] Health Maintenance Due Date Last Done Comments [...] this encounter Medical Devices Implanted Type Area Classification Officer Device Identifier Shelf Expiration Date Model / Serial / Lot Lens Intraoc 25.5 - [id number] - [id number] Implanted:Qty: 1 on 09/03/2021 by Jeffrey Rodriguez MD at OR [facility] Left: Eye [employer] 09/28/2025 [id number] / [id number] / [id number] Lens Intraoc 24.5 - [id number] - [id number] Implanted:Qty: 1 on 09/17/2021 by Jeffrey Rodriguez MD at OR [facility] Right: Eye [employer] 10/29/2025 [id number] / [id number] / [id number] documented as of this encounter Care Teams Pump Servicer Supervisor Relationship Specialty Start Date End Date Angeli Lee MD [address] [facility] [place] [address] PCP - General 11/02/08 documented as of this encounter
--- OUTSIDE RECORDS SUMMARY | 2024-05-21 10:49 | External Medical Summary | Summary of Care ---
Author Name Unknown Organization [facility] Address [address] [facility] [address] Phone [phone] Care Team Providers Care Rn Resource Nurse Name Role Phone Angeli Lee MD Primary Care Provider + Reason for Visit * Reason Comments Dosage Adjustment Via Phone (anticoag Cl inic) Encounter Details Date Type Department Care Team (Latest Contact Info) Description 11/24/2023 6:00 AM EDT Anticoagulation Centralized Clinical Pharmacy Services, Moe [address] [place] [address] [place] [address] Chronic atrial fibrillation (HCC)*; Atrial fibrillation, unspecified type (HCC) Allergies No known active allergiesdocumented as of this encounter (statuses as of 11/24/2023) Medications Medication Sig Dispensed Refills Start Date [...] at bedtime . Active Cholecalciferol (VITAMIN D3) 13734 units TABS Take 1 Tab by mouth every evening. Active Cyanocobalamin (VITAMIN B12) 1000 MCG TBCR Take by mouth at bedtime . Active Misc Natural Products (APPLE CIDER VINEGAR DIET) TABS Take by mouth. Active Apple Cider Vinegar 500 MG Oral Tablet Take by mouth 1 Tablet daily with dinner . 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 1 07/17/2002 Anticoagulation management encounter 11/24/2001 Atrial fibrillation 05/26/2001 documented as of this encounter (statuses as of 11/24/2023) Resolved Problems Problem Noted Date Diagnosed Date [...] as of this encounter (statuses as of 11/24/2023) Immunizations Name Administration Dates Next Due COVID-19 mRNA, LNP-s, No Pre serve, 2-Dose Series ([facility]) 11/25/2021,05/14/2021,07/28/2020,02/0 10/2020 COVID-19, LNP-s, No Preserve , Joseph-sucrose, [...] this encounter Progress Notes * Yanni Loza, boiler/chiller operator - 11/24/2023 1:04 PM EDT Contacts Type Contact Phone/Fax 11/24/2023 01:01 PM EDT Phone (Outgoing) Angela Lazar (Self) [phone] (M) Spoke to Patient Subjective Patient Findings [...] as noted by Pharmacist: Yes ADRIANA NEGRON 11/24/2023, 1:04 PM * Cat Yeung RPh - 11/24/2023 11:40 AM EDT Coumadin Clinic (region specific) Objective Current Warfarin Dose As of 11/24/2023 Warfarin maintenance plan: 0 mg every Mon; 2.5 mg (5 mg x 0.5) all other days INR Result As of 11/24/2023 INR goal: 2.0-3.0 INR used for dosin.3 (11/23/2023) Assessment & Plan Warfarin Plan As of 11/24/2023 Full warfarin instructions: 0 mg every Mon; 2.5 mg all other days No change documented: Cat Yeung RPh Next INR check: 12/14/2023 Repeat PT/INR in 3 week(s) Weekly dose: not changed Additional Dosing Information: Description GML M// Tech to contact patient with dose instructions as noted. Cat Yeung RPh 11/24/2023, 11:40 AM documented in this encounter Plan of Treatment Upcoming Encounters Date Type Department Care Team (Late st Contact Info) Description 12/08/2023 10:00 AM EDT Office Visit Ophthalmology, [facility] [address] [place] [address] Kodi Souza, DO [address] [place] [address] 12/14/2023 7:00 AM EDT Laboratory Lab Mobile Phlebotomy [facility] [address] [facility] [place] [address] M[facility], Gml Mobile Home Draw [address] [facility] [place] [address] 12/15/2023 6:00 AM EDT Anticoagulation Centralized Clinical Pharmacy Services, Moe Mohamud [address] [place] [address] [place] [address] [facility], [facility] [address] [facility] [place] [address] 02/05/2024 10:35 AM EDT Cardiac Studies Cardiac Studies, [facility] [address] [facility] [place] [address] 02/19/2024 11:00 AM EDT Office Visit Cardiology, [facility] [address] [facility] [place] [address] Dasia Cohen CRNP [address] [place] [address] 03/30/2024 10:20 AM EDT Office Visit General Internal Medicine [facility] [address] [place] [address] Angeli Lee MD [address] [place] [address] 05/27/2024 2:20 PM EST [facility] [address] [place] [address] Levy Garcia MD [address] [place] [address] Health Maintenance Due Date Last Done Comments [...] 10/30, 12/13/2013 Influenza Vaccine (FLU shot) Completed 03/10/2023, 04/18/2022, 03/13/2021, Additional history exists GARDASIL-HPV IMMUNIZATION SERIES Aged Out No longer eligible based on patient's age to complete this topic Hepatitis B Aged Out No longer eligi ble based on patient's age to complete this topic MENINGOCOCCAL (MENACTRA/MENVEO) Aged Out No longer eligible based on patient's age to complete this topic documented as of this encounter Medical Devices Implanted Type Area Ict Managers Device Identifier Shelf Expiration Date Model / Serial / Lot Lens Intraoc 25.5 - [id number] - [id number] Implanted:Qty: 1 on 09/03/2021 by Jeffrey Rodriguez MD at OR [facility] Left: Eye [employer]OMB 09/28/2025 [id number] / [id number] / [id number] Lens Intraoc 24.5 - [id number] - [id number] Implanted:Qty: 1 on 09/17/2021 by Jeffrey Rodriguez MD at OR [facility] Right: Eye [employer]CH [employer] LOMB 10/29/2025 [id number] / [id number] / [id number] documented as of this encounter Visit Diagnoses Diagnosis Chronic atrial fibrillation (HCC)- Primary Atrial fibrillation Atrial fibrillation, unspecified type (HCC) documented in this encounter Care Teams Rn Resource Nurse Relationship Specialty Start Date End Date Angeli Lee MD [address] [place] [address] PCP - General 11/02/08 documented as of this encounter
--- OUTSIDE RECORDS SUMMARY | 2024-05-21 10:49 | External Medical Summary | Summary of Care ---
Author Name Unknown Organization [facility] Address [address] [facility] [place] [address] Phone [phone] Care Team Providers Care Call Out Clerk Name Role Phone Angeli Lee MD Primary Care Provider + Reason for Visit * Reason Comments Dosage Adjustment Via Phone (anticoag Cl inic) Encounter Details Date Type Department Care Team (Late st Contact Info) Description 12/15/2023 6:00 AM EDT Anticoagulation Centralized Clinical Pharmacy Services, Moe Mohamud [address] [place] [address] [place] [address] [place] [address] Atrial fibrillation, unspecified type (HCC)* Allergies No known active allergiesdocumented as of this encounter (statuses as of 12/15/2023) Medications Medication Sig Dispensed Refills Start Date [...] at bedtime . Active Cholecalciferol (VITAMIN D3) 12829 units TABS Take 1 Tab by mouth every evening. Active Cyanocobalamin (VITAMIN B12) 1000 MCG TBCR Take by mouth at bedtime . Active Misc Natural Products (APPLE CIDER VINEGAR DIET) TABS Take by mouth. Active Apple Cider Vinegar 500 MG Oral Tablet Take by mouth 1 Tablet daily with dinner . 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 1 07/17/2002 Anticoagulation management encounter 11/24/2001 Atrial fibrillation 05/26/2001 documented as of this encounter (statuses as of 12/15/2023) Resolved Problems Problem Noted Date Diagnosed Date [...] as of this encounter (statuses as of 12/15/2023) Immunizations Name Administration Dates Next Due COVID-19 mRNA, LNP-s, No Pre serve, 2-Dose Series (Reds10) 11/25/2021,05/14/2021,07/28/2020,10/2020 COVID-19, LNP-s, No Preserve , Joseph-sucrose, [...] as of this encounter Progress Notes * Deloris Abraham, group sales manager - 12/15/2023 9:24 AM EDT Contacts Type Contact Phone/Fax 12/15/2023 09:20 AM EDT Phone (Outgoing) PALOMA JAQUEZ (Emergency Contact) [phone] (M) Spoke to Paloma Subjective Patient Findings Negatives: Signs/symptoms of bleeding, Change in health, Change in activity, Upcoming invasive procedure, Missed doses, Extra doses, Change in medications, Change in diet/appetite, Bruising Advised patient to contact Anticoagulation Clinic if any unusual bruising or bleeding, recent illness, changes in medication, or questions/concerns. PT/INR results, Coumadin dose instructions, and next PT/INR date communicated as noted by Pharmacist: Yes DELORIS ABRAHAM CPhT 12/15/2023, 9:24 AM * Diana Whitehead RPh - 12/15/2023 8:24 AM EDT Coumadin Clinic (region specific) Objective Current Warfarin Dose As of 12/15/2023 Warfarin maintenance plan: 0 mg every Mon; 2.5 mg (5 mg x 0.5) all other days INR Result As of 12/15/2023 INR goal: 2.0-3.0 INR used for dosin.6 (12/14/2023) Assessment & Plan Warfarin Plan As of 12/15/2023 Full warfarin instructions: 0 mg every Mon; 2.5 mg all other days No change documented: Diana Whitehead RPh Next INR check: 01/04/2024 Repeat PT/INR in 3 week(s) Weekly dose: not changed Additional Dosing Information: Description GM M/ Tech to contact patient with dose instructions as noted. Diana Whitehead RPh 12/15/2023, 8:27 AM documented in this encounter Plan of Treatment Upcoming Encounters Date Type Department Care Team (Late st Contact Info) Description 12/18/2023 9:45 AM EDT Office Visit Ophthalmology, [facility] [address] [place] [address] Kodi Souza, DO [address] [place] [address] 01/04/2024 7:00 AM EDT Laboratory Lab Mobile Phlebotomy [facility] [address] [facility] [place] [address] Mvmg, Gml Mobile Home Draw [address] [facility] [place] [address] 01/05/2024 6:00 AM EDT Anticoagulation Centralized Clinical Pharmacy Services, Moe Mohamud [address] [place] [address] [place] [address] [facility], [address] [place] [address] 02/05/2024 10:35 AM EDT [facility] [place] [address] 02/19/2024 11:00 AM EDT Office Visit Cardiology, [facility] 132 [facility] [place] [address] Dasia Cohen CRNP 132 [facility] [place] [address] 03/30/2024 10:20 AM EDT Office Visit [facility] [place] [address] [place] [address] Angeli Lee MD [address] [place] [address] 05/27/2024 2:20 PM EST Office Visit [facility], [facility] [address] [place] [address] Levy Garcia MD [address] [place] [address] Health Maintenance Due Date Last Done Comments [...] this encounter Medical Devices Implanted Type Area Pony Rougher Device Identifier Shelf Expiration Date Model / Serial / Lot Lens Intraoc 25.5 - [id number] - [id number] Implanted:Qty: 1 on 09/03/2021 by Jeffrey Rodriguez MD at OR [facility] Left: Eye [employer]CH [employer] LOMB 09/28/2025 [id number] / [id number] / [id number] Lens Intraoc 24.5 - [id number] - [id number] Implanted:Qty: 1 on 09/17/2021 by Jeffrey Rodriguez MD at OR [facility] Right: Eye BAUSCH [employer] LOMB 10/29/2025 [id number] / [id number] / [id number] documented as of this encounter Visit Diagnoses Diagnosis Atrial fibrillation, unspecified type (HCC)- Primary documented in this encounter Care Teams Call Out Clerk Relationship Specialty Start Date End Date Angeli Lee MD [address] [place] [address] PCP - General 11/02/08 documented as of this encounter
--- NOTE | 2024-05-21 11:19 | XRay Report ---
EXAM: Radiographs of the Left Foot Complete 3 Views INDICATION: Open wound. TECHNIQUE: Frontal, lateral and oblique views of the left foot. COMPARISON: No relevant prior studies available. FINDINGS: Bones/joints: The bones are demineralized. There has been resection of the first distal phalanx and portions of the first proximal phalanx. Mild to moderate diffuse joint space narrowing. No erosion or fracture. Soft tissues: Diffuse moderate soft tissue swelling noted. There is a bandage over the heel. Atherosclerotic calcification noted. No soft tissue gas collection or radiopaque foreign body within the patient. IMPRESSION: No plain radiographic evidence of osteomyelitis. Impression severe cellulitis. Bandaging over a soft tissue wound at the heel. ACT 112: Negative or not required by law. Electronically signed by Beulah Catalan 05-21-2024 11:19 AM
[2024-05-21 11:39] LABS: Basophils # (auto) 0.03 K/uL (0.00-0.20); Basophils % (auto) 0.4 %; Eosinophils % (auto) 1.2 %; Hematocrit (blood only) 35.1 % (37.0-47.0); Hemoglobin 10.9 g/dl (12.0-16.0); Immature Granulocytes # (auto) 0.06 K/uL (0.01-0.20); Immature Granulocytes % (auto) 0.7 %; Lymphocytes # (auto) 0.79 K/uL (1.20-3.40); Lymphocytes % (auto) 9.3 %; Mean Corpuscular Hemoglobin 28.8 pg (25.0-34.0); Mean Corpuscular Hgb Conc 31.1 g/dL (32.0-36.0); Mean Corpuscular Volume 92.6 fL (80.0-100.0); Mean Platelet Volume 10.1 fL (9.4-12.4); Monocytes # (auto) 0.77 K/uL (0.11-0.59); Neutrophils # (auto) 6.78 K/uL (1.40-6.50); Neutrophils % (auto) 79.4 %; Platelet Count 285 K/uL (130-400); RDW Standard Deviation 54.4 fL (36.4-46.3); Red Blood Count 3.79 M/uL (4.20-5.40); White Blood Count 8.53 K/ul (4.8-10.8)
[2024-05-21] MEDS: CEFEPIME 2000MG 2,000 MG/20 ML SYR IV STA (11:49)
[2024-05-21] MEDS: metroNIDAZOLE 500 MG TAB PO STA (11:50)
[2024-05-21 11:53] LABS: Albumin Level 3.8 gm/dl (3.4-5.0); BUN Creatinine Ratio 22.3 (10-20); Bilirubin,Total 0.5 mg/dl (0.2-1.0); Calcium 10.2 mg/dl (8.6-10.3); Globulin 3.7 gm/dl (2.5-4.0); Potassium 4.7 mmol/L (3.5-5.1); Total Protein 7.5 gm/dl (6.0-8.3)
[2024-05-21 12:07] LABS: Thyroid Stimulating Hormone 2.227 uIu/ml (0.300-4.500)
[2024-05-21] MEDS ORDERED: NYSTATIN POWDER 15GM BTL EXT PRN (12:53)
--- NOTE | 2024-05-21 13:14 | History & Physical Report ---
Date of Service May 21, 2024 Assessment & Plan (1) Callus of foot: (2) Type 2 diabetes mellitus: Plan #Nonhealing LE wounds, worsened #DM #HF -XR negative for osteo -will order CT scans bilat LE for further evaluation, though likelihood of osteo remains less likely -f/u blood cultures, wound cultures -continue empiric cefepime/flagyl started in the ED -will likely need outpt vascular surgery consultation for ALEX, appears likely concominant DM, HF, PVD causing wounds -ISS -echo -wound care consult -fall precautions -PT/OT, consider placement vs. advanced static mattress for home given location of wound indicates potential bed sore -pain control #Htn -home meds -PRN hydralazine >180/100 #Afib -home meds -tele -appears patient may be subtherapeutic on warfarin, will attempt to bring to therapeutic level #TREMAYNE likely prerenal -gentle hydration given HF history #Normocytic anemia likely 2/2 chronic dx -monitor Gentle hydration, diabetic diet, PPI, on therapeutic warfarin for DVT ppx History of Present Illness Chief Complaint: worsening LE wounds Primary Care Provider: Angeli Lee MD 89F pmh DM, now controlled, HF, Afib, htn, DM who presents to the ED for worsening LE wounds. Patient is accompanied by family who assists with history. States that she has a history of severe DM with diabetic wounds, most recently exacerbation 01/21 at which time she saw wound care who recommended incision and drainage but they declined and wounds healed with abx. This time patient states her DM has been significantly improved and she has been removed from her DM medications by her PCP, but in the last 1 week her chronic wounds have been worsening, specifically with increased induration, "boils" which have began to slough somewhat. Also with significant worsening heel wound on the L as well as some necrotic ulcers on the tips of the metatarsals. No current complaints though patient does have significant neuropathy causing limitation of sensation in the LE. No fever, chills, pain, no vomiting diarrhea. Patient is largely immobile due to weakness. Allergies Allergy/AdvReac Type Severity Reaction Status Date / Time No Known Allergies Allergy Verified 01/05/23 13:29 Home Medications Medication Instructions Recorded Confirmed Type allopurinol 300 mg tablet 300 mg PO QAM 08/15/22 05/21/24 History apple cider vinegar 500 mg tablet 500 mg PO PM 08/15/22 05/21/24 History aspirin 81 mg tablet,delayed 81 mg PO HS 08/15/22 05/21/24 History release cholecalciferol (vitamin D3) 125 10,000 unit PO QPM 08/15/22 05/21/24 History mcg (5,000 unit) tablet (Vitamin D3) cyanocobalamin (vitamin B-12) 2,500 mcg PO HS 08/15/22 05/21/24 History 1,000 mcg tablet (Vitamin B-12) diltiazem HCl 120 mg 120 mg PO QAM 08/15/22 05/21/24 History capsule,extended release 24 hr furosemide 40 mg tablet 40 mg PO QAM 08/15/22 05/21/24 History pravastatin 40 mg tablet 40 mg PO HS 08/15/22 05/21/24 History diphenhydramine 25 2 tab PO HS 11/16/22 05/21/24 History mg-acetaminophen 500 mg tablet (Tylenol PM Extra Strength) vit C 250 mg-vit E 90 mg-zinc 40 1 tab PO BID 11/16/22 05/21/24 History mg-copper 1 [id number] capsule (PreserVision AREDS-2) warfarin 2.5 mg tablet 2.5 mg PO UD 11/16/22 05/21/24 History digoxin 250 mcg (0.25 mg) tablet 125 mcg PO UD 01/05/23 05/21/24 History lisinopril 20 mg tablet 10 mg PO QAM 01/05/23 05/21/24 History Pepcid 1 tab PO QAM 05/21/24 05/21/24 History fenofibrate nanocrystallized 48 mg 48 mg PO QAM 05/21/24 05/21/24 History tablet loratadine 10 mg tablet (Claritin) 10 mg PO DAILY 05/21/24 05/21/24 History metoprolol succinate 50 mg 50 mg PO QAM 05/21/24 05/21/24 History tablet,extended release 24 hr nystatin 100,000 unit/gram topical 1 applic topical TID PRN Other 05/21/24 05/21/24 History powder Past Med/Surg History Problem List Callus of foot (Acute) Hypomagnesemia (Acute) Abnormal urinalysis Ambulatory dysfunction (Acute) Hypertension (Acute) Type 2 diabetes mellitus (Acute) Diastolic dysfunction Persistent atrial fibrillation (Acute) Medical History History of breast cancer CKD (chronic kidney disease), stage III On warfarin therapy Surgical History History of total right knee replacement History of total left knee replacement History of total abdominal hysterectomy History of cholecystectomy S/P mastectomy, bilateral Family History Other Family history non-contributory Social History Smoking Status: Never smoker Do You Dip or Chew Tobacco: No; Hx Alcohol Use: Yes Alcohol type: wine Hx Substance Use: No Preferred Language: Hebrew Communication Ability: Effective Coil Finisher Required: No Beliefs That Will Affect Care: None marital status: Current Living Situation: Spouse current occupational status: retired Feels Safe at Home: Yes Assistive Devices: Stair Lift, Walker, Wheelchair and Other Review of Systems Constitutional: no fever and no chills Integumentary: + rash, + non-healing lesions and + skin ulcer Physical Exam Constitutional: WD/WN, vitals as above Respiratory: normal respiratory effort, lungs clear to auscultation Skin: The lower shins have bilateral erythematous, patchy wounds resembling chronic venous stasis wounds. There is a significant necrotic appearing superficial wound on the L heel, with two foci. One is approximately 5x5cm but does not appear to delve to the bone. The other is approximately 1x1 and appears more acutely infectious with yellow wound margins. There are several small foci of necrotic tissue on the nail beds of the metatarsals, with the R 1st toenail appearing grossly yellow, difficult to differentiate necrosis vs. fungal dx. Psychiatric: A+Ox3, euthymic affect Results & Data Results & Data Vital Signs (Past 12 Hours) Vital Signs Temp Pulse Pulse Resp BP BP Pulse Ox 05/21/24 12:01 92 H 05/21/24 11:01 36.6 C 103 H 18 167/127 H 95 05/21/24 11:00 101 H 18 95 05/21/24 11:00 101 H 18 167/127 H 95 O2 Del Method 05/21/24 12:01 05/21/24 11:01 Room Air 05/21/24 11:00 Room Air 05/21/24 11:00 Room Air Laboratory Results Abnormal lab results 05/21/24 Range/Units 11:20 RBC 3.79 L (4.20-5.40) M/uL Hgb 10.9 L (12.0-16.0) g/dl Hct 35.1 L (37.0-47.0) % MCHC 31.1 L (32.0-36.0) g/dL RDW Std Deviation 54.4 H (36.4-46.3) fL RDW Coeff of Eric 16.0 H (11.5-14.5) % Neut # (Auto) 6.78 H (1.40-6.50) K/uL Lymph # (Auto) 0.79 L (1.20-3.40) K/uL [place] # (Auto) 0.77 H (0.11-0.59) K/uL Sodium 135 L (136-145) mmol/L BUN 63 H (6-23) mg/dl Creatinine 2.83 H (0.6-1.2) mg/dl BUN/Creatinine Ratio 22.3 H (10-20) Glucose 297 H (70-99(Fasting)) mg/dl Diagnostic Findings Foot X-Ray 05/21/24 11:05 EXAM: Radiographs of the Left Foot Complete 3 Views INDICATION: Open wound. TECHNIQUE: Frontal, lateral and oblique views of the left foot. COMPARISON: No relevant prior studies available. FINDINGS: Bones/joints: The bones are demineralized. There has been resection of the first distal phalanx and portions of the first proximal phalanx. Mild to moderate diffuse joint space narrowing. No erosion or fracture. Soft tissues: Diffuse moderate soft tissue swelling noted. There is a bandage over the heel. Atherosclerotic calcification noted. No soft tissue gas collection or radiopaque foreign body within the patient. IMPRESSION: No plain radiographic evidence of osteomyelitis. Impression severe cellulitis. Bandaging over a soft tissue wound at the heel. ACT 112: Negative or not required by law. Electronically signed by Beulah Catalan 05-21-2024 11:19 AM Code Status & VTE Plan VTE Prophylaxis Plan Reason for no VTE drug order: Drug interaction
[2024-05-21] MEDS ORDERED: DEXTROSE 50% 50 ML SYRINGE IV PRN (13:17)
[2024-05-21] MEDS ORDERED: GLUCOSE 10 TAB/TUBE PO PRN (13:17)
[2024-05-21] MEDS ORDERED: GLUCAGON FOR INJ 1 MG VIAL SQ PRN (13:17)
[2024-05-21] MEDS ORDERED: hydrALAZINE HCL 20 MG/ML VIAL IV PRN (13:17)
[2024-05-21] MEDS ORDERED: GLUCOSE 40% GEL 15 GM TUBE PO PRN (13:17)
[2024-05-21] MEDS ORDERED: CEFEPIME 500MG 500 MG/5 ML SYR IV STA (13:17)
[2024-05-21] MEDS ORDERED: CARBOHYDRATES FOR HYPOGLYCEMIA PO PRN (13:17)
--- NOTE | 2024-05-21 14:17 | CT Scan Report ---
EXAM: CT Left Lower Extremity Without Intravenous Contrast Tibia and Fibula INDICATION: Assess for osteomyelitis. TECHNIQUE: Axial computed tomography images of the left tibia and fibula without intravenous contrast. Sagittal and coronal reformatted images were created and reviewed. This CT exam was performed using one or more of the following dose reduction techniques: automated exposure control, adjustment of the mA and/or kV according to patient size, and/or use of iterative reconstruction technique. COMPARISON: No relevant prior studies available. FINDINGS: Limitations: Metallic streak artifact from the knee prosthesis limits assessment of immediately surrounding structures. Bones/joints: The bones are demineralized. Allowing for artifact, no periosteal reaction, fracture or erosion. Soft tissues: There is diffuse moderate subcutaneous and superficial fascial edema and generalized cutaneous thickening progressively increasing from the knee to the foot. There is prominent induration along the lateral aspect of the tibia along the mid to distal femoral stem measuring 9.2 cm long by 3.0 cm transverse by approximately 1.2 cm AP. There is no organized or drainable collection. IMPRESSION: 1. Allowing for artifact from the knee arthroplasty, no evidence of right tibial/fibular osteomyelitis. 2. Soft tissue induration noted along the anterior lateral aspect of the tibia at the level of the mid and distal arthroplasty components. No organized or drainable collection. 3. Generalized cellulitis. ACT 112: Negative or not required by law. Electronically signed by Beulah Catalan 05-21-2024 2:17 PM
--- NOTE | 2024-05-21 14:32 | CT Scan Report ---
EXAM: CT Left Lower Extremity Without Intravenous Contrast Tibia and Fibula INDICATION: Assess for osteomyelitis. TECHNIQUE: Axial computed tomography images of the left tibia and fibula without intravenous contrast. Sagittal and coronal reformatted images were created and reviewed. This CT exam was performed using one or more of the following dose reduction techniques: automated exposure control, adjustment of the mA and/or kV according to patient size, and/or use of iterative reconstruction technique. COMPARISON: No relevant prior studies available. FINDINGS: Limitations: Significant metallic streak artifact from prosthesis limits assessment of the surrounding soft tissues. Bones/joints: There is a knee joint effusion. Knee prosthesis components well-seated. No fracture. No periosteal reaction or erosion noted. The bones are generally demineralized. Soft tissues: Severe circumferential subcutaneous and superficial fascial edema noted progressively increasing from the knee to the foot. There is a small amount of disorganized fluid posterior medial to the proximal femur measuring roughly 2.2 x 1.3 x 3.5 cm. The collection is not liquefied or organized. No associated gas. There is no organized or drainable collection. No soft tissue gas. Vasculature: Atherosclerosis. There are multiple calcified superficial varices medial thigh. IMPRESSION: 1. Extensive cellulitis. No organized or drainable abscess. 2. No evidence of osteomyelitis. ACT 112: Negative or not required by law. Electronically signed by Beulah Catalan 05-21-2024 2:32 PM
[2024-05-21] MEDS: FUROSEMIDE 40 MG TAB PO SCH (17:37)
[2024-05-21] MEDS: FUROSEMIDE 40 MG TAB PO STA (17:38)
[2024-05-21] MEDS: PANTOprazole 40 MG TAB PO STA (17:38)
[2024-05-21] MEDS: INSULIN ASPART PER UNIT CHARGE SC SCH (17:58)
[2024-05-21 18:00] LABS: INR 2.1 (0.9-1.1); Prothrombin Time 21.4 Seconds (9.0-12.0)
[2024-05-21] MEDS: WARFARIN SOD 2.5 MG TAB PO SCH (18:41)
[2024-05-21] MEDS: metroNIDAZOLE 500 MG/100 ML BAG IV SCH (20:18)
[2024-05-21] MEDS: CYANOCOBALAMIN (B-12) 2,500 MCG TABLET PO SCH (20:19)
[2024-05-21] MEDS: CEROVITE ADV FORMULA TAB PO SCH (20:20)
[2024-05-21] MEDS: PRAVASTATIN SOD 40 MG TAB PO SCH (20:20)
[2024-05-21] MEDS: ACETAMINOPHEN 500 MG TAB PO SCH (20:42)
[2024-05-21] MEDS: diphenhydrAMINE Capsule 25 MG CAP PO SCH (20:42)
[2024-05-21] MEDS ORDERED: diphenhydrAMINE Capsule 25 MG CAP PO SCH (21:00)
[2024-05-21] MEDS ORDERED: NON-FORMULARY MEDICATION (Apple Cider Vinegar 500 mg Tablet) PO SCH (21:00)
[2024-05-21] MEDS: CEFEPIME 1000MG 1,000 MG/10 ML SYR IV SCH (21:43)
[2024-05-22 06:33] LABS: Appearance Urine Turbid (Clear); Bacteria Urine Automated None Seen (None Seen); Bilirubin Urine Negative (Negative); Blood Urine Trace (Negative); Color Urine Yellow; Epithelial Cell Urine Auto 0-2 /hpf (0-2); Glucose Urine UA Negative (Negative); Ketones Urine Negative (Negative); Leukocyte Esterase Urine 3+ (Negative); Nitrite Urine Negative (Negative); Protein Urine 1+ (Negative); RBC Urine Automated 0-2 /hpf (0-2); Specific Gravity Urine 1.013 (1.000-1.030); Urobilinogen Urine Negative (Negative); WBC Urine Automated >50 /hpf (0-5); pH Urine 5.5 (4.5-7.5)
[2024-05-22 06:44] LABS: Hematocrit (blood only) 31.4 % (37.0-47.0); Hemoglobin 10.2 g/dl (12.0-16.0); Mean Corpuscular Hemoglobin 29.6 pg (25.0-34.0); Mean Corpuscular Hgb Conc 32.5 g/dL (32.0-36.0); Mean Platelet Volume 10.6 fL (9.4-12.4); Platelet Count 283 K/uL (130-400); RDW Coefficient of Variation 15.6 % (11.5-14.5); RDW Standard Deviation 51.8 fL (36.4-46.3); Red Blood Count 3.45 M/uL (4.20-5.40); White Blood Count 8.08 K/ul (4.8-10.8)
[2024-05-22 07:06] LABS: Albumin Globulin Ratio 0.9 (0.9-2); Albumin Level 3.1 gm/dl (3.4-5.0); Bilirubin,Total 0.4 mg/dl (0.2-1.0); Calcium 9.8 mg/dl (8.6-10.3); Globulin 3.5 gm/dl (2.5-4.0); Potassium 4.5 mmol/L (3.5-5.1); Total Protein 6.6 gm/dl (6.0-8.3)
[2024-05-22 07:08] LABS: INR 2.2 (0.9-1.1); Prothrombin Time 22.2 Seconds (9.0-12.0)
[2024-05-22] MEDS ORDERED: VANCOMYCIN CONSULT ACTIVE PRN (07:16)
[2024-05-22 07:35] LABS: Estimated Average Glucose 214 mg/dl; Hemoglobin A1C 9.1 % (4.5-5.6)
[2024-05-22] MEDS: VANCOMYCIN HCL 2,500 MG in SODIUM CHLORIDE 0.9% 500 ML IV ONE (07:46)
--- NOTE | 2024-05-22 08:03 | Hospitalist Progress Note ---
Date of Service May 22, 2024 Assessment & Plan (1) Callus of foot: (2) Type 2 diabetes mellitus: Plan Left heel wound Patient presented to the hospital for evaluation Of wound at her left heel On examination; has black eschar with foul smelling discharge and surrounding necrotic tissue No leukocytosis CT of bilateral lower extremity was done; no underlying drainable collection. Found to have cellulitis bilaterally. Will consult podiatry for possible debridement. Obtain MRI of the foot. Also obtain ESR, CRP Antibiotics changed to Zosyn and Daptomycin Will hold Coumadin for anticipated debridement. TREMAYNE on CKD Baseline creatinine of 2-2.2 Presented with creatinine of 2.8, status post hydration Continuing Lasix. Hold lisinopril Avoid nephrotoxic agent Persistent atrial fibrillation Continue on Cardizem digoxin and Coumadin Echocardiogram shows EF of 60 to 65%, left atrium severely dilated Type 2 diabetes mellitus Hold home oral agent Continue on insulin Follow-up with PCP for long-term management as HbA1c is 9% Hyperlipidemia- hold pravastatin while patient is on daptomycin Goutcontinue on allopurinol Hypertensioncontinue on metoprolol. Hold lisinopril Full code DVT prophylaxis Coumadin on hold Plan of care discussed with patient's daughter and granddaughter at bedside. Time spent evaluating patient, direct bedside care, chart review, placing orders, interpretation of diagnostic studies, discussion with consultants, patient, and family members, as well as other required patient management activities is 50 minutes Please note the above document was generated using voice recognition software. It may contain grammatical, syntax or spelling errors. Any formal questions or concerns about the content, text or information contained within the body of this dictation should be directly addressed to the provider for clarification Admission and Anticipated Discharge Date Admission Date: May 21, 2024 Subjective Patient seen and examined at bedside. She is lying comfortably on bed; not in distress. She denies fever, chills, chest pain or shortness of breath No significant events overnight Review of Systems Review of Systems: All systems reviewed & are unremarkable except as noted in Subjective Physical Exam Physical Exam: Constitutional: Awake, alert oriented x 3; not in distress. Respiratory: Bilateral vesicular breath sound Cardiovascular: Irregular, no murmur, no edema Vessels: no JVD or carotid bruit Chest: normal inspection of chest Abdomen: normal bowel sounds, soft, nontender, no hepatosplenomegaly Musculoskeletal: Lower delgado with bilateral erythematous patch. Left heel with wound with malodorous foul smelling drainage, dark eschar and fall Neurologic: PERRL, EOMI, accommodation nl, no face palsy, no dysarthria CN's II- XI intact bilaterally and moves all extremities Psychiatric: A+Ox3, euthymic affect Results & Data Results & Data Vital Signs (Past 12 Hours) Vital Signs Temp Pulse Pulse Resp BP Pulse Ox O2 Del Method 05/22/24 07:44 36.8 C 102 H 18 124/94 92 Room Air 05/22/24 03:13 36.6 C 99 H 20 129/67 92 Room Air 05/21/24 23:00 90 05/21/24 22:20 Room Air 05/21/24 22:11 36.5 C 88 20 130/78 94 Room Air
[2024-05-22] MEDS: 4.5GM X1 IV STA (08:56)
[2024-05-22] MEDS: DAPTOmycin 325 MG in SYRINGE 0 ML IV SCH (08:56)
[2024-05-22] MEDS ORDERED: lisinopril 10 MG TAB PO SCH (09:00)
[2024-05-22] MEDS: allopurinoL 300 MG TAB PO SCH (09:01)
[2024-05-22] MEDS: FAMOTIDINE 20 MG TAB PO SCH (09:01)
[2024-05-22] MEDS: METOPROLOL SUCC 50MG EXT REL TAB PO SCH (09:02)
[2024-05-22] MEDS: dilTIAZem HCL 120 MG CAPCR PO SCH (09:02)
[2024-05-22] MEDS: FENOFIBRATE NANOCRYSTALLIZED 48 MG TABLET PO SCH (11:17)
--- NOTE | 2024-05-22 13:08 | Electrocardiogram Report ---
Test Reason : Blood Pressure : */* mmHG Vent. Rate : 90 BPM Atrial Rate : * BPM P-R Int : * ms QRS Dur : 98 ms QT Int : 342 ms P-R-T Axes : * -5 -28 degrees QTcB Int : 418 ms Atrial fibrillation Possible Anterior infarct , age undetermined Abnormal ECG When compared with ECG of 16-Nov-2022 11:43, No significant change was found Confirmed by Talon Ellington ([id number]) on 05/22/2024 1:08:07 PM Referred By: REFERRED SELF Confirmed By: Talon Ellington
--- NOTE | 2024-05-22 13:45 | Magnetic Resonance Report ---
EXAM: MR ankle LT wo con CLINICAL HISTORY: lt heel wound x1wk+, r/o osteo cellulitis. TECHNIQUE: Multiplanar multi-sequential MRI of left ankle joint was performed without IV contrast administration. COMPARISON: CT left tibia and fibula dated 05/21/2024. FINDINGS: Bones: There are foci of bone marrow edema is seen at the lateral ankle compartment in the articular aspects of the distal fibula and the opposing talus body lateral aspect suggesting bone marrow contusions. Similarly, foci of bone marrow edema are seen in the medial ankle compartment subarticular region and in the tarsal bones with inter-tarsal articular degenerative changes. Normal alignment of the tibia, fibula, talus, calcaneus, navicular, cuboid, cuneiforms, and metatarsals. No fractures or dislocations. No lytic or sclerotic lesions. Joints: Degenerative changes of the tibiotalar and inter-tarsal joints. The subtalar joint is presreved. Minimal ankle joint effusion is seen. Articular surfaces are smooth without erosions or osteophyte formation. Compartmental tendons: Mild fluid is seen around the tibialis posterior and peroneus longus tendons. The flexor digitorum, and flexor hallucis longus are unremarkable. The extensor digitorum, and extensor hallucis longus are unremarkable. The peroneus brevis isunremarkable. The Achilles tendon is thickened with a high intrasubstance signal in the distal segment with pre-Achilles fat and subcutaneous edema. Sinus tarsi and plantar fascia: The sinus tarsi are unremarkable. The plantar fascia is mildly thickened with overlying subcutaneous edema and calcaneal bone marrow edema at the attachment. Ligaments: Mild high signal with thickening of the anterior and posterior talofibular ligaments is seen with surrounding edema and mild fluid noted. The deltoid ligament is intact. The calcaneofibular ligament is intact. The intertarsal ligaments are unremarkable. The Calcaneocuboid and calcaneonavicular ligament are intact. Intact, intertarsal ligaments. Intact cuneometatarsal ligaments. Intact Lisfranc ligament. Muscles: Normal appearance of the surrounding musculature. No muscle atrophy or abnormal signal changes. Soft Tissues: There is skin defect at the heel region with subcutaneous edema signal, the related calcaneus bone signal is within normal. Diffuse subcutaneous soft tissue edema is seen around the ankle joint. The soft tissues at the distal leg, around the ankle, and foot are unremarkable. IMPRESSION: 1. There is a skin defect at the heel region with subcutaneous edema, suggesting cellulitis. The related calcaneus bone signal is within normal with no features of osteomyelitis. 2. Foci of bone marrow edema at the medial and lateral ankle compartment in the articular aspects and the opposing talus body suggest bone marrow contusions. 3. Degenerative changes of the tibiotalar and inter-tarsal joints with foci of bone marrow edema. 4. Diffuse subcutaneous soft tissue edema is seen around the ankle joint. 5. Achilles tendinopathy with retrocalcanel bursal effusion. 6. Anterior and posterior talofibular sprain changes. 7. Mild tibialis posterior and peroneus longus tenosynovitis. 8. Minimal ankle joint effusion. 9. The overall findings appear unchanged as compared to the prior CT examination, the present MRI shows further soft tissue changes assessment as described above. Electronically signed by Raysa Moffett 05-22-2024 13:45 PM
[2024-05-22] MEDS: PIPERACILLIN/TAZOBACTAM 4.5 GM/100 ML BAG IV SCH (17:27)
[2024-05-22] MEDS: bisacodyL 5 MG TABEC PO ONE (20:11)
[2024-05-23 06:40] LABS: Basophils # (auto) 0.04 K/uL (0.00-0.20); Basophils % (auto) 0.5 %; Eosinophils # (auto) 0.15 K/uL (0.00-0.50); Eosinophils % (auto) 1.9 %; Hematocrit (blood only) 32.9 % (37.0-47.0); Hemoglobin 10.4 g/dl (12.0-16.0); Immature Granulocytes # (auto) 0.04 K/uL (0.01-0.20); Immature Granulocytes % (auto) 0.5 %; Lymphocytes # (auto) 1.01 K/uL (1.20-3.40); Lymphocytes % (auto) 12.6 %; Mean Corpuscular Hemoglobin 28.9 pg (25.0-34.0); Mean Corpuscular Hgb Conc 31.6 g/dL (32.0-36.0); Mean Corpuscular Volume 91.4 fL (80.0-100.0); Mean Platelet Volume 10.5 fL (9.4-12.4); Monocytes # (auto) 0.93 K/uL (0.11-0.59); Monocytes % (auto) 11.6 %; Neutrophils # (auto) 5.83 K/uL (1.40-6.50); Neutrophils % (auto) 72.9 %; Platelet Count 287 K/uL (130-400); RDW Coefficient of Variation 15.6 % (11.5-14.5); RDW Standard Deviation 51.9 fL (36.4-46.3)
[2024-05-23 06:57] LABS: C Reactive Protein 7.83 mg/dl (0-0.5); Calcium 10.1 mg/dl (8.6-10.3); Creatinine Clr Calc Pharmacy 19.4 ml/min; Potassium 4.4 mmol/L (3.5-5.1)
[2024-05-23 07:07] LABS: INR 1.9 (0.9-1.1); Prothrombin Time 19.3 Seconds (9.0-12.0)
--- NOTE | 2024-05-23 08:10 | Hospitalist Progress Note ---
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 Ankle MRI showed a skin defect at the heel region with subcutaneous edema suggesting cellulitis; no suggestion of osteomyelitis. ESR elevated to 120, CRP elevated to 7.83 Superficial wound culture growing Staph aureus and Enterococcus faecalis; sensitivities pending. Continue daily dressing as per podiatry instructions. Case management to set up home health for dressing changes. Continue on current antibiotics; follow-up on sensitivities Plan to resume Coumadin from tomorrow TREMAYNE on CKD Baseline creatinine of 2-2.2 Presented with creatinine of 2.8, status post hydration Continuing Lasix. Hold lisinopril Avoid nephrotoxic agent Persistent atrial fibrillation Continue on Cardizem digoxin and Coumadin Echocardiogram shows EF of 60 to 65%, left atrium severely dilated Type 2 diabetes mellitus stop taking oral agents couple of months ago as per PCP instructions Continue on insulin Follow-up with PCP for long-term management as HbA1c is 9% Discussed about resuming glipizide which she was taking prior to stopping it couple of months ago. Hyperlipidemia- hold pravastatin while patient is on daptomycin Goutcontinue on allopurinol Hypertensioncontinue on metoprolol. Hold lisinopril Full code DVT prophylaxis Coumadin on hold Plan of care discussed with patient's daughter\ at bedside on 05/23/2024. Time spent evaluating patient, direct bedside care, chart review, placing orders, interpretation of diagnostic studies, discussion with consultants, patient, and family members, as well as other required patient management activities is 50 minutes Please note the above document was generated using voice recognition software. It may contain grammatical, syntax or spelling errors. Any formal questions or concerns about the content, text or information contained within the body of this dictation should be directly addressed to the provider for clarification Admission and Anticipated Discharge Date Admission Date: May 21, 2024 Subjective Patient seen and examined at bedside She is comfortable; not in distress She denies fever, chills, chest pain or shortness of breath. No significant events overnight She underwent bedside debridement by podiatry today. Review of Systems Review of Systems: All systems reviewed & are unremarkable except as noted in Subjective Physical Exam Physical Exam: Constitutional: Awake, alert oriented x 3; not in distress. Respiratory: Bilateral vesicular breath sound Cardiovascular: Irregular, no murmur, no edema Vessels: no JVD or carotid bruit Chest: normal inspection of chest Abdomen: normal bowel sounds, soft, nontender, no hepatosplenomegaly Musculoskeletal: Lower delgado with bilateral erythematous patch. dressing in place; no soakage. Neurologic: PERRL, EOMI, accommodation nl, no face palsy, no dysarthria CN's II- XI intact bilaterally and moves all extremities Psychiatric: A+Ox3, euthymic affect Results & Data Results & Data Vital Signs (Past 12 Hours) Vital Signs Temp Pulse Pulse Resp BP Pulse Ox O2 Del Method 05/23/24 07:42 36.7 C 99 H 18 117/58 L 97 Room Air 05/23/24 07:21 96 H 05/23/24 03:02 36.3 C L 86 18 130/77 92 Room Air 05/22/24 23:18 36.4 C L 82 18 118/77 91 Room Air 05/22/24 23:00 89 05/22/24 22:00 Room Air
[2024-05-23] MEDS: MAGNESIUM HYDROXIDE SUSP 30 ML UDC PO ONE (09:42)
[2024-05-23] MEDS: POLYETHYLENE (MIRALAX) 17 GM PACK PO SCH (09:42)
--- NOTE | 2024-05-23 11:32 | Podiatry Consultation ---
Date of Consultation May 23, 2024 Assessment & Plan (1) Stage II pressure ulcer of right heel: (2) Pressure injury of left heel, unstageable: Plan Lengthy discussion with patient and family regarding the ongoing care and treatment of her heel wounds. Explained that it is important that we manage these wounds as pressure ulcers though I have no doubt there is a diabetic component in her neuropathy has contributed to the formation of these wounds. Offloading is paramount and regular application of Betadine will attempt to manage colonization and help to form a dry stable eschar to the left heel wound. Patient is aware that continued antibiotic therapy is important until soft tissue infection has resolved. We reviewed imaging study showing no signs of bone involvement. All questions answered. Case discussed with hospitalist team. Imaging: MRI left heel 05/22/2024: IMPRESSION: There is a skin defect at the heel region with subcutaneous edema, suggesting cellulitis. The related calcaneus bone signal is within normal with no features of osteomyelitis. CT without contrast left lower extremity 05/21/2024: Impression: Extensive cellulitis. No organized or drainable abscess. No evidence of osteomyelitis. Labs: 05/22/2024: White blood count 8.0, ESR 120, CRP 7.83, procalcitonin 0.15, creatinine 2.52, BUN 23, hemoglobin A1c 9.1, albumin 3.1, total protein 6.6 Antibiotics: Continues IV daptomycin and Zosyn. Culture: Deep wound culture collected at bedside from wound bed following debridement 05/23/2024 Offloading: Bilateral heel to be floated off the bed with pillow x 2 behind the calf and heel offloading boots in place at all times while at rest. Okay to remove boots and weight-bear in normal shoe gear for for short distance and transfer. Wound Care: Dressing change once daily bilateral heel with Betadine wet-to-dry dressing. Saturate 4 x 4 gauze x 4 with Betadine placed directly against wound followed by ABD pad Yariel and tape. Please place ABD pad to the anterior ankle to protect soft tissues. Discharge/follow up: Patient would benefit from home health care nurse to monitor wound progression and aid in dressing changes. She does have family member who practices nursing and would be able to aid in dressing changes on the off days. Patient unable to change dressings on her own. Patient and family also report difficulty getting patient to her outpatient appointments including the wound center. I would recommend she follows up in the wound center but this can be perhaps every 3 to 4 weeks to monitor wound progression in conjunction with close coordination with home health care. Surgical Excisional Debridement: Indication:Removal of necrotic tissue to promote healing Pre-op diagnosis: Unstageable pressure ulcer left heel Post-op diagnosis: Same Procedure: Surgical excisional debridement left heel ulcer Surgeon: Herbert Regalado DPM Anesthesia: None Bleeding:Minimal Disposition: Tolerated well Procedure: Informed consent obtained, Time Out taken. Patient understands and agrees to procedure. Excisional debridement was carried out of left heel consisting of loose keratotic, slough, biofilm and subcutaneous tissue was carried out utilizing a curette and 15 blade. There is a eschar in place at the posterior plantar junction of the heel which is interrogated but it seems to be well adhered to the underlying subcutaneous tissue without fluctuance. This will be left in place and is not debrided today in hopes that we are able to form a dry stable eschar through daily application of Betadine and offloading. Anesthesia-none. Patient tolerated the procedure well. Bleeding-minimal. Controlled with-direct pressure. Post-debridement measurements: [] cm. A total of [] cm2 were debrided. History of Present Illness Reason for Consultation: Pressure ulcer bilateral heel Attending Physician: Nikita Jimenez MD History of Present Illness 89-year-old female living at home in [facility] with past medical history significant for type 2 diabetes with diabetic peripheral neuropathy, atrial fibrillation on Coumadin, hypertension, hyperlipidemia, breast cancer status post bilateral mastectomy, history of bilateral knee replacement. Patient has a close family and daughter is primary caregiver. recently . Seen resting comfortably in her hospital bed today with one of her daughters and granddaughter at bedside. She is unaware of exactly when the ulceration to her left heel started and was not aware there was an ulcer on her right heel. She reports loss of sensation to the bilateral heel and sits in a recliner/lift chair during the day where she does report resting her heels on the foot rest. Denies pain in the bilateral heel. Denies nausea vomiting fever chills. Patient is nonambulatory and uses a wheelchair. She does weight-bear for transfer. Patient last seen in the wound care center 01/05/2023 for an ulceration to the right heel. CT and MRI imaging of the left lower extremity with no signs of bone involvement or abscess formation about the left heel. Continues IV daptomycin and Zosyn. Allergies Allergy/AdvReac Type Severity Reaction Status Date / Time No Known Allergies Allergy Verified 01/05/23 13:29 Home Medications Medication Instructions Recorded Confirmed Type allopurinol 300 mg tablet 300 mg PO QAM 08/15/22 05/21/24 History apple cider vinegar 500 mg tablet 500 mg PO PM 08/15/22 05/21/24 History aspirin 81 mg tablet,delayed 81 mg PO HS 08/15/22 05/21/24 History release cholecalciferol (vitamin D3) 125 10,000 unit PO QPM 08/15/22 05/21/24 History mcg (5,000 unit) tablet (Vitamin D3) cyanocobalamin (vitamin B-12) 2,500 mcg PO HS 08/15/22 05/21/24 History 1,000 mcg tablet (Vitamin B-12) diltiazem HCl 120 mg 120 mg PO QAM 08/15/22 05/21/24 History capsule,extended release 24 hr furosemide 40 mg tablet 40 mg PO QAM 08/15/22 05/21/24 History pravastatin 40 mg tablet 40 mg PO HS 08/15/22 05/21/24 History diphenhydramine 25 2 tab PO HS 11/16/22 05/21/24 History mg-acetaminophen 500 mg tablet (Tylenol PM Extra Strength) vit C 250 mg-vit E 90 mg-zinc 40 1 tab PO BID 11/16/22 05/21/24 History mg-copper 1 [id number]-bqnicy capsule (PreserVision AREDS-2) warfarin 2.5 mg tablet 2.5 mg PO UD 11/16/22 05/21/24 History digoxin 250 mcg (0.25 mg) tablet 125 mcg PO UD 01/05/23 05/21/24 History lisinopril 20 mg tablet 10 mg PO QAM 01/05/23 05/21/24 History Pepcid 1 tab PO QAM 05/21/24 05/21/24 History fenofibrate nanocrystallized 48 mg 48 mg PO QAM 05/21/24 05/21/24 History tablet loratadine 10 mg tablet (Claritin) 10 mg PO DAILY 05/21/24 05/21/24 History metoprolol succinate 50 mg 50 mg PO QAM 05/21/24 05/21/24 History tablet,extended release 24 hr nystatin 100,000 unit/gram topical 1 applic topical TID PRN Other 05/21/24 05/21/24 History powder glipizide 5 mg tablet 5 mg PO BID 05/22/24 05/22/24 History Patient History Medical History History of breast cancer CKD (chronic kidney disease), stage III On warfarin therapy Surgical History History of total right knee replacement History of total left knee replacement History of total abdominal hysterectomy History of cholecystectomy S/P mastectomy, bilateral Family History Other Family history non-contributory Social History Smoking Status: Never smoker Second Hand Exposure: No; Do You Dip or Chew Tobacco: No; Tobacco Cessation Education Requested by Patient: No Hx Alcohol Use: No Hx Substance Use: No Preferred Language: Sinhala Communication Ability: Effective Surgical Territory Manager Required: No Beliefs That Will Affect Care: None marital status: Current Living Situation: Alone current occupational status: retired Other Information That Helps Us Care for You: No Feels Safe at Home: Yes Safety Concerns: Feels Safe At This Time Assistive Devices: Denture - Upper, Glasses, Walker and Wheelchair Physical Exam Physical Exam: Wound: Left heel: None unstageable pressure injury left heel. Significant sloughing hyperkeratotic and epithelial tissue surrounding the entirety of the posterior and plantar left heel. At the posterior plantar junction of the heel there is a well adhered eschar with mild maceration. The remainder of the wound bed is mixed granular and subcutaneous tissue with overlying slough. Areas of exposed subcutaneous tissue are probed and did not extend to periosteum or bone or tendon at this time. No undermining or tracking. There is moderate opaque off-white malodorous drainage to the mansi underneath the wound. Moderate periwound erythema and edema about the left heel wound. Right heel: Stage II pressure ulcer to the posterior lateral aspect of the patient's left heel with sloughing epithelium. Mechanical debridement with underlying healthy granular tissue. No exposed subcutaneous tissue at this time. Wound does not probe or track in any direction. Scant malodorous drainage which is trapped about this sloughing epithelium which is now removed and cleansed. Mild periwound erythema likely secondary to soft tissue irritation. No lymphangitis or streaking. Results & Data Vital Signs (Past 12 Hours) Vital Signs Temp Pulse Pulse Resp BP Pulse Ox O2 Del Method 05/23/24 10:10 Room Air 05/23/24 07:42 36.7 C 99 H 18 117/58 L 97 Room Air 05/23/24 07:21 96 H 05/23/24 03:02 36.3 C L 86 18 130/77 92 Room Air 05/22/24 23:18 36.4 C L 82 18 118/77 91 Room Air Laboratory Results Labs: 05/22/2024: White blood count 8.0, ESR 120, CRP 7.83, procalcitonin 0.15, creatinine 2.52, BUN 23, hemoglobin A1c 9.1, albumin 3.1, total protein 6.6 Diagnostic Findings MRI left ankle 05/22/2024: IMPRESSION: 1. There is a skin defect at the heel region with subcutaneous edema, suggesting cellulitis. The related calcaneus bone signal is within normal with no features of osteomyelitis. 2. Foci of bone marrow edema at the medial and lateral ankle compartment in the articular aspects and the opposing talus body suggest bone marrow contusions. 3. Degenerative changes of the tibiotalar and inter-tarsal joints with foci of bone marrow edema. 4. Diffuse subcutaneous soft tissue edema is seen around the ankle joint. 5. Achilles tendinopathy with retrocalcanel bursal effusion. 6. Anterior and posterior talofibular sprain changes. 7. Mild tibialis posterior and peroneus longus tenosynovitis. 8. Minimal ankle joint effusion. 9. The overall findings appear unchanged as compared to the prior CT examination, the present MRI shows further soft tissue changes assessment as described above. Left lower extremity CT without contrast tib-fib 05/21/2024: IMPRESSION: 1. Extensive cellulitis. No organized or drainable abscess. 2. No evidence of osteomyelitis. X-ray left foot 3 views 05/21/2024: IMPRESSION: No plain radiographic evidence of osteomyelitis. Impression severe cellulitis. Bandaging over a soft tissue wound at the heel. PG Care Time/CCT Total # of Minutes Spent Total Time Spent with Patient: Total time spent is greater than 50% in coordination of care (as documented) at patient's floor/unit and/or counseling patient: Coding Level of Care Code 40336 IN/OBS CONSULT LVL 4,60M Diagnoses Stage II pressure ulcer of right heel L89.612 Pressure injury of left heel, unstageable L89.620
[2024-05-23] MEDS: bisacodyL 10 MG SUPP PR STA (16:10)
[2024-05-24] MEDS: MICONAZOLE NITRATE POWDER 85 GM EXT SCH (01:50)
[2024-05-24 06:17] LABS: Basophils # (auto) 0.04 K/uL (0.00-0.20); Basophils % (auto) 0.5 %; Eosinophils # (auto) 0.22 K/uL (0.00-0.50); Hematocrit (blood only) 32.6 % (37.0-47.0); Hemoglobin 10.6 g/dl (12.0-16.0); Immature Granulocytes # (auto) 0.06 K/uL (0.01-0.20); Immature Granulocytes % (auto) 0.8 %; Lymphocytes # (auto) 1.12 K/uL (1.20-3.40); Lymphocytes % (auto) 15.4 %; Mean Corpuscular Hemoglobin 29.4 pg (25.0-34.0); Mean Corpuscular Hgb Conc 32.5 g/dL (32.0-36.0); Mean Corpuscular Volume 90.3 fL (80.0-100.0); Mean Platelet Volume 10.3 fL (9.4-12.4); Monocytes # (auto) 0.81 K/uL (0.11-0.59); Monocytes % (auto) 11.1 %; Neutrophils # (auto) 5.03 K/uL (1.40-6.50); Neutrophils % (auto) 69.2 %; Platelet Count 300 K/uL (130-400); RDW Coefficient of Variation 15.5 % (11.5-14.5); RDW Standard Deviation 51.3 fL (36.4-46.3); Red Blood Count 3.61 M/uL (4.20-5.40); White Blood Count 7.28 K/ul (4.8-10.8)
[2024-05-24 06:33] LABS: BUN Creatinine Ratio 23.1 (10-20); Calcium 10.2 mg/dl (8.6-10.3); Creatinine Clr Calc Pharmacy 17.2 ml/min; Potassium 4.5 mmol/L (3.5-5.1)
[2024-05-24 06:42] LABS: INR 1.6 (0.9-1.1); Prothrombin Time 16.4 Seconds (9.0-12.0)
[2024-05-24] MEDS: DIGOXIN 0.125 MG TAB PO SCH (07:57)
--- NOTE | 2024-05-24 08:52 | Hospitalist Progress Note ---
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 Ankle MRI showed a skin defect at the heel region with subcutaneous edema suggesting cellulitis; no suggestion of osteomyelitis. ESR elevated to 120, CRP elevated to 7.83 Superficial wound culture growing MSSA and Enterococcus faecalis( sensitivities pending.) Deep wound culture from bedside debridement on 05/23-moderate gram-positive cocci. Culture pending Continue daily dressing as per podiatry instructions. Both Enterococcus and Staph aureus are sensitive to daptomycin; Zosyn discontinued. Plan to switch over to amoxicillin and doxycycline at the time of the discharge. Patient prefers going home with home health; limited mobility to follow-up at wound care on regular basis. Case management on board for setting up home health. TREMAYNE on CKD Baseline creatinine of 2-2.2 Presented with creatinine of 2.8, status post hydration Continuing Lasix. Hold lisinopril Creatinine fluctuating around 2.8; will encourage oral hydration Persistent atrial fibrillation Continue on Cardizem digoxin and Coumadin Echocardiogram shows EF of 60 to 65%, left atrium severely dilated Type 2 diabetes mellitus stop taking oral agents couple of months ago as per PCP instructions Continue on insulin Follow-up with PCP for long-term management as HbA1c is 9% Discussed about resuming glipizide which she was taking prior to stopping it couple of months ago. Hyperlipidemia- hold pravastatin while patient is on daptomycin Goutcontinue on allopurinol Hypertensioncontinue on metoprolol. Hold lisinopril Full code DVT prophylaxis Coumadin Plan of care discussed with patient's daughter at bedside on 05/23/2024. Please note the above document was generated using voice recognition software. It may contain grammatical, syntax or spelling errors. Any formal questions or concerns about the content, text or information contained within the body of this dictation should be directly addressed to the provider for clarification Admission and Anticipated Discharge Date Admission Date: May 21, 2024 Subjective Patient seen and examined at bedside She is comfortable; not in distress Pain is well-controlled on current medication Review of Systems Review of Systems: All systems reviewed & are unremarkable except as noted in Subjective Physical Exam Physical Exam: Constitutional: Awake, alert oriented x 3; not in distress. Respiratory: Bilateral vesicular breath sound Cardiovascular: Irregular, no murmur, no edema Vessels: no JVD or carotid bruit Chest: normal inspection of chest Abdomen: normal bowel sounds, soft, nontender, no hepatosplenomegaly Musculoskeletal: Lower delgado with bilateral erythematous patch. dressing in place; no soakage. Neurologic: PERRL, EOMI, accommodation nl, no face palsy, no dysarthria CN's II- XI intact bilaterally and moves all extremities Psychiatric: A+Ox3, euthymic affect Results & Data Results & Data Vital Signs (Past 12 Hours) Vital Signs Temp Pulse Pulse Resp BP Pulse Ox O2 Del Method 05/24/24 07:57 99 H 05/24/24 07:53 36.5 C 99 H 20 122/80 94 Room Air 05/24/24 07:20 90 05/24/24 03:02 36.3 C L 91 H 19 127/82 92 Room Air 05/23/24 23:06 36.4 C L 83 16 116/70 93 Room Air 05/23/24 21:47 90 05/23/24 21:00 Room Air
[2024-05-24] MEDS ORDERED: PHARMACY GLYCEMIC MGMT CONSULT PRN (12:34)
--- NOTE | 2024-05-24 13:27 | Pharmacy Report ---
Pharmacy Glycemic Short Note 2 - Date of Service May 24, 2024 - Glycemic Short BSG Results (Last 24 hours): 05/23/24 05/23/24 05/24/24 16:27 20:15 05:35 Glucose 187 H POC Glucose 255 H 257 H 05/24/24 05/24/24 07:18 11:14 Glucose POC Glucose 210 H 320 H* OUTPATIENT ANTIDIABETIC REGIMEN: * Previously on glipizide 5 mg BID--> this was stopped outpatient * A1c 9.1% 05/22/24 ASSESSMENT: * Patient is admitted with left heel wound, TREMAYNE on CKD --> SCr trending upward * Fasting 182-210 mg/dL the past three days- will initiate lantus using adjusted body weight stress of 1- 2 * Patient previously reported adequate control on glipizide per diabetes education note, will trial tightened parameters as previous has resulted in prandial BSGs in the 200s PLAN FOR INPATIENT GLYCEMIC CONTROL: * Hold outpatient oral diabetes medications * Basal insulin * Lantus 15 units SQ x1, with additional per scale this PM- reassess in AM * Bolus insulin * NovoLog per scale ACHS or Q6hrs while NPO * Goal Range: Low 120 mg/dL - High 160 mg/dL * Correction Factor: 30 mg/dL/unit * Nutritional / Prandial insulin per carb ratio of 1 unit per 10 grams CHO consumed
[2024-05-24] MEDS: COUGH DROP (SUGAR FREE) LOZ 24 LOZ/1 BOX BUCCAL ONE (13:58)
[2024-05-24] MEDS: LANTUS PER UNIT CHARGE SQ ONE ×2 (13:58→21:23)
[2024-05-24] MEDS: WARFARIN SOD 2.5 MG TAB PO SCH (16:23)
[2024-05-24] MEDS: ASPIRIN 81 MG ECTAB PO SCH (21:20)
[2024-05-25 07:12] LABS: Basophils # (auto) 0.04 K/uL (0.00-0.20); Basophils % (auto) 0.6 %; Eosinophils # (auto) 0.26 K/uL (0.00-0.50); Eosinophils % (auto) 3.9 %; Hematocrit (blood only) 33.9 % (37.0-47.0); Hemoglobin 10.8 g/dl (12.0-16.0); Immature Granulocytes # (auto) 0.06 K/uL (0.01-0.20); Immature Granulocytes % (auto) 0.9 %; Lymphocytes # (auto) 1.05 K/uL (1.20-3.40); Lymphocytes % (auto) 15.8 %; Mean Corpuscular Hemoglobin 28.9 pg (25.0-34.0); Mean Corpuscular Hgb Conc 31.9 g/dL (32.0-36.0); Mean Corpuscular Volume 90.6 fL (80.0-100.0); Mean Platelet Volume 10.2 fL (9.4-12.4); Monocytes # (auto) 0.66 K/uL (0.11-0.59); Neutrophils # (auto) 4.56 K/uL (1.40-6.50); Neutrophils % (auto) 68.8 %; Nucleated RBC # (auto) 0.03 K/uL (0.00-0.12); Nucleated RBC % (auto) 0.5 %; Platelet Count 304 K/uL (130-400); RDW Coefficient of Variation 15.9 % (11.5-14.5); RDW Standard Deviation 52.3 fL (36.4-46.3); Red Blood Count 3.74 M/uL (4.20-5.40); White Blood Count 6.63 K/ul (4.8-10.8)
[2024-05-25 07:27] LABS: BUN Creatinine Ratio 21.9 (10-20); Calcium 10.2 mg/dl (8.6-10.3); Creatinine Clr Calc Pharmacy 16.6 ml/min; Potassium 4.6 mmol/L (3.5-5.1)
[2024-05-25 07:38] LABS: INR 1.4 (0.9-1.1); Prothrombin Time 14.9 Seconds (9.0-12.0)
[2024-05-25] MEDS: LANTUS PER UNIT CHARGE SC SCH (08:13)
[2024-05-25] MEDS: FUROSEMIDE 40 MG/4 ML VIAL IV ONE (13:20)
--- NOTE | 2024-05-25 13:21 | Hospitalist Progress Note ---
Date of Service May 25, 2024 Assessment & Plan (1) Diabetic infection of left foot: (2) Acute renal failure superimposed on stage 3 chronic kidney disease: (3) Pressure injury of left heel, unstageable: (4) Stage II pressure ulcer of right heel: (5) Type 2 diabetes mellitus: Plan: Uncontrolled (6) Ambulatory dysfunction: (7) Persistent atrial fibrillation: (8) On warfarin therapy: (9) Acute on chronic diastolic (congestive) heart failure: Plan Patient with left foot infection diabetic pressure ulcer. Continue daptomycin, transition to oral antibiotics at discharge Patient with evidence of volume overload and edema, suspect diastolic dysfunction in setting of acute on chronic renal failure, give additional IV Lasix today Okay to MedSurg, rate control, chronic atrial fibrillation Continue warfarin increased dose, INR subtherapeutic Continue therapies as tolerated Case management pursuing home medical bed and home therapies for wound care Phone update to patient's daughter. She reports the patient's glipizide was discontinued a few weeks ago. Patient has been hyperglycemic ever since. Requesting diabetes to be better managed prior to discharge. Reviewed how we manage diabetes here in the hospital. With her worsening renal dysfunction glipizide may not be the best option for the patient upon discharge or dose may need to be adjusted. Will continue to evaluate. Continue to monitor renal function and glucose Admission and Anticipated Discharge Date Admission Date: May 21, 2024 Subjective Patient concerned about her swelling in her hands. No shortness of breath. Physical Exam Physical Exam: Constitutional: Alert, nontoxic HEENT: Mucous membranes moist. Lungs: Decreased breath sounds, crackles at bases CV: S1-S2, irregular Abdomen: Soft, nontender, nondistended Extremities: No significant edema Neuro: No focal deficits, generalized weakness Psych: Cooperative, normal mood Results & Data Results & Data Vital Signs (Past 12 Hours) Vital Signs Temp Pulse Resp BP Pulse Ox O2 Del Method 05/25/24 10:53 36.5 C 98 H 19 136/85 93 Room Air 05/25/24 08:00 Room Air 05/25/24 07:52 36.4 C L 106 H 16 137/79 95 Room Air 05/25/24 04:00 36.3 C L 96 H 17 136/79 92 Room Air Diagnostic Findings Reviewed imaging, laboratory and diagnostic studies. Pertinent findings as below. WBC 6.6 Hemoglobin 10.8 INR 1.4 Creatinine 2.97 Glucose was reviewed, elevated Hemoglobin A1c 9.1%
[2024-05-25] MEDS: WARFARIN SOD 5 MG TAB PO SCH (16:02)
[2024-05-25] MEDS: LANTUS PER UNIT CHARGE SQ SCH (20:45)
[2024-05-26 08:35] LABS: Calcium 10.2 mg/dl (8.6-10.3); Creatinine Clr Calc Pharmacy 15.7 ml/min; Potassium 4.3 mmol/L (3.5-5.1)
[2024-05-26 08:42] LABS: INR 1.4 (0.9-1.1); Prothrombin Time 14.4 Seconds (9.0-12.0)
--- NOTE | 2024-05-26 10:39 | Pharmacy Report ---
Pharmacy Glycemic Short Note 2 - Date of Service May 26, 2024 - Glycemic Short BSG Results (Last 24 hours): 05/25/24 05/25/24 05/25/24 11:27 16:31 20:36 Glucose POC Glucose 269 H 206 H 162 H 05/26/24 07:41 Glucose 145 H POC Glucose 156 H OUTPATIENT ANTIDIABETIC REGIMEN: * Previously on glipizide 5 mg BID--> this was stopped outpatient * A1c 9.1% 05/22/24 ASSESSMENT: 05/26 * Patient received a total of 60 units of insulin yesterday (35 units were basal) * Fasting BSG was in range this morning so basal insulin will remain the same (Lantus 25 units in the morning and Lantus scale at bedtime -0-15 units depending on BSG) * BSGs were above goal most of yesterday so CR was tightened yesterday. BSG reese to 235mg/dL at lunch today so CR tightened again today. * Patient with worsening renal function (SCr 3.13 today--baseline SCr is 2-1.2) and continues on daptomycin for and infection of the left foot. 05/24 * Patient is admitted with left heel wound, TREMAYNE on CKD --> SCr trending upward * Fasting 182-210 mg/dL the past three days- will initiate lantus using adjusted body weight stress of 1- 2 * Patient previously reported adequate control on glipizide per diabetes education note, will trial tightened parameters as previous has resulted in prandial BSGs in the 200s PLAN FOR INPATIENT GLYCEMIC CONTROL: * Hold outpatient oral diabetes medications * Basal insulin * Lantus 25 units SQ QAM , Lantus scale depending on BSG QPM (BSG < 140--0 units, BSG 140-200--10 units, BSG > 200--15 units) * Bolus insulin * NovoLog per scale ACHS or Q6hrs while NPO * Goal Range: Low 120 mg/dL - High 160 mg/dL * Correction Factor: 30 mg/dL/unit * Nutritional / Prandial insulin per carb ratio of 1 unit per 7 grams CHO consumed
--- NOTE | 2024-05-26 11:29 | Hospitalist Progress Note ---
Date of Service May 26, 2024 Assessment & Plan (1) Diabetic infection of left foot: (2) Acute renal failure superimposed on stage 3 chronic kidney disease: (3) Pressure injury of left heel, unstageable: (4) Stage II pressure ulcer of right heel: (5) Type 2 diabetes mellitus: Plan: Uncontrolled (6) Ambulatory dysfunction: (7) Persistent atrial fibrillation: (8) On warfarin therapy: (9) Acute on chronic diastolic (congestive) heart failure: Plan Patient primarily admitted for infected pressure ulcer of the heel and diabetic foot ulcer. These are improving with debridement and localized wound care. Can transition to oral antibiotics or plan for discharge. Reviewed cultures and sensitivities. Transition to amoxicillin and doxycycline INR subtherapeutic, Coumadin dose increased yesterday, continue 5 mg, continue to monitor INR Patient had good response to additional Lasix, however creatinine continues to trend upwards. Reviewed outside EMR. Looks like baseline creatinine in September 2023 was around 1.9-2.1. Patient was to have a office appointment with nephrology this week. Consult nephrology for inpatient evaluation. Glucoses have improved, patient getting scheduled Lantus. With progressing renal dysfunction, would not recommend restarting glyburide at discharge. Patient may need to continue on insulin based on her renal function. This would be new for her. Case management continuing to work on coordinating home health care Updated daughter via phone Admission and Anticipated Discharge Date Admission Date: May 21, 2024 Subjective Patient is pleased that the swelling in her hands have improved. Overall feeling improved. Tolerating diet. No chest pain or shortness of breath. Reports good response to the Lasix yesterday. Physical Exam Physical Exam: Constitutional: Alert, nontoxic HEENT: Mucous membranes moist. Lungs: Decreased breath sounds, few crackles at bases CV: S1-S2, irregular, systolic murmur Abdomen: Soft, nontender, nondistended Extremities: Decreased edema in hands left greater than right, little less pitting edema posterior thighs Neuro: No focal deficits, generalized weakness Psych: Cooperative, normal mood Results & Data Results & Data Vital Signs (Past 12 Hours) Vital Signs Temp Pulse Pulse Resp BP Pulse Ox O2 Del Method 05/26/24 07:59 88 05/26/24 07:15 36.4 C L 95 H 18 141/90 H 95 Room Air Diagnostic Findings Reviewed imaging, laboratory and diagnostic studies. Pertinent findings as below. INR 1.4 Creatinine 3.13 Glucoses reviewed
--- NOTE | 2024-05-26 15:25 | Podiatry Progress Note ---
Date of Service May 26, 2024 Assessment & Plan (1) Pressure injury of left heel, unstageable: (2) Stage II pressure ulcer of right heel: Plan Lengthy discussion with patient's daughter who is primary caregiver and her granddaughter. Educated and demonstrated wound dressing changes with patient's daughter. Daughter feels she will be able to handle dressing changes on days when home health care is not available in order to keep up with once daily dressing changes to the bilateral heel wound. We reviewed clinical signs of infection to monitor for and patient is encouraged to contact my office or discussed with her home health care nurse if she should develop any signs of local soft tissue infection. Discussed the portance of continuous offloading specifically to the left heel to allow for this wound to heal. I explained that with continued pressure wound will likely breakdown further and is at much higher risk of developing a recurrent infection which could lead to loss of limb. -Based on the overall appearance of the bilateral foot wound and improvement over the last several days with resolution of cellulitis I agree with transition to p.o. antibiotics for discharge. -Patient encouraged to follow-up with the wound center within 1 month of discharge for reevaluation of bilateral heel wounds. Okay for discharge from podiatry standpoint. Thank you for consulting podiatry today in the care of this patient. Admission and Anticipated Discharge Date Admission Date: May 21, 2024 Subjective Patient seen today with nurse in room resting comfortably in hospital bed with her daughter and granddaughter at bedside. Heels are elevated off the bed with pillow behind the calf and her heel offloading boots are in place. Dressings are clean dry and intact last changed 05/25/2024. She was seen by physical therapy earlier today. Patient is okay to weight-bear for short distance and transfer. She denies pain in the bilateral foot. Denies nausea vomiting fever chills. Physical Exam Physical Exam: Left heel wound: Unstageable pressure injury: Eschar to the posterior plantar junction of the heel is becoming darker in color and drying out/stabilizing. Unable to express any drainage from underneath this eschar. Wound does not probe or track in any direction. Surrounding open wound bed is healthy granular tissue with early signs of epithelization to the borders. There is no active drainage. No periwound erythema or edema. No lymphangitis or streaking. No malodor. Right heel wound: Stage II pressure injury lateral right heel: This wound is improved and overall character with no active drainage and no signs of local soft tissue infection. Wound bed is mixed fibrotic and granular tissue and is quite superficial at this point. Results & Data Results & Data Vital Signs (Past 12 Hours) Vital Signs Temp Pulse Pulse Resp BP Pulse Ox O2 Del Method 05/26/24 07:59 88 05/26/24 07:55 Room Air 05/26/24 07:15 36.4 C L 95 H 18 141/90 H 95 Room Air Coding [place] [address] SUB INP/OBS CARE 2/35MIN Patient Type Established Diagnoses Pressure injury of left heel, unstageable L89.620 Stage II pressure ulcer of right heel L89.612
--- NOTE | 2024-05-26 15:25 | Podiatry Progress Note ---
Date of Service May 24, 2024 Assessment & Plan (1) Pressure injury of left heel, unstageable: (2) Stage II pressure ulcer of right heel: Plan Bilateral heel wound dressings changed with Betadine soaked wet-to-dry dressing. Significant improvement noted to the left heel wound with decreased drainage, improved healthier granular wound bed surrounding eschar. Eschar has become darker dry and stable which is optimal when treating this type of wound. Patient to continue offloading bilateral posterior heel with pillows behind the calf and heel offloading boots while at rest. Overall improvement to the character of the left heel wound further indicates that wound will not likely require further debridement and is heading in a positive direction. Will allow patient's nurse to change dressing on 05/25 and I will see patient again on the morning of 05/26/2024 pending she remains in house for dressing change and reevaluation of the wound. Agree that patient would likely do well at discharge on p.o. Augmentin and doxycycline at time of discharge pending culture results. Admission and Anticipated Discharge Date Admission Date: May 21, 2024 Subjective Patient seen resting comfortably in hospital bed. Denies pain in the feet. Denies nausea vomiting fever chills. Dressings remain clean dry and intact from placement postdebridement 05/23/2024. Physical Exam Physical Exam: Left heel wound: No unstageable pressure injury left heel: Overall character of the wound is significantly improved at the past 24 hours. Decreased drainage. There is persistent scant yellow to green drainage noted on dressing. The eschar his stabilized significantly and was starting to dry out. Decreased periwound erythema and edema. Right heel wound: Stage II pressure injury right heel. Wound is starting to form a small eschar centrally. No periwound erythema or edema. No active drainage. Results & Data Results & Data Vital Signs (Past 12 Hours) Vital Signs Temp Pulse Pulse Resp BP Pulse Ox O2 Del Method 05/24/24 09:18 Room Air 05/24/24 07:57 99 H 05/24/24 07:53 36.5 C 99 H 20 122/80 94 Room Air 05/24/24 07:20 90 05/24/24 03:02 36.3 C L 91 H 19 127/82 92 Room Air Coding [place] [address] SUB INP/OBS CARE 2/35MIN Patient Type Established Diagnoses Pressure injury of left heel, unstageable L89.620 Stage II pressure ulcer of right heel L89.612 Time Spent (min) 40
--- NOTE | 2024-05-26 18:45 | Nephrology Consultation ---
Date of Consultation May 26, 2024 Assessment & Plan (1) Acute renal failure superimposed on stage 4 chronic kidney disease: Stage one improving nonoliguric TREMAYNE on CKD 4. Baseline creatinine 2 as of September 2023 w/ 1.5 gm proteinuria. presented 05/21 w/ L diabetic foot infection and creatinine 2.8, reached karen of 2.4 on 05/22, then back to 2.9 as of 05/24 and plateau'd at about 3 ever since, w/ today's reading 3.1. Calling this TREMAYNE for now in setting of infection; possible however that this is CKD progression. Admission UA w/ 3+ LE > 50 WBC/hpf, no bacteria, 1+ protein and trace blood. relatively stable renal function with acceptable BP and volume status; K 4.3 controlled/ acceptable today; hgb yesterday 10.8 and stable. -daily bmp -strict I/O to continue -no indication for acute dialysis ->I held her AM lasix for tomorrow pending labs >may be able to be d/c soon w/ close f/u of renal function as OP Volume status, impression of causes of wrosening renal function, recommendations for diuretics reviewed w/ Dr Pitts via T Text; we are in agreement. History of Present Illness Reason for Consultation: TREMAYNE on CKD Requesting Physician: Dr Pitts Attending Physician: Toro Pitts, History of Present Illness 89 y/o F whom I'm asked to see for TREMAYNE on CKD was admitted 05/21 w/ worsening / nonhealing BLE foot wounds and found to have L diabetic foot infection. Her presenting creatinine on 05/21 was 2.8, reached karen of 2.4 on 05/22, then back to 2.9 as of 05/24 and plateau'd at about 3 ever since, w/ today's reading 3.1. PMH includes DM w/ h/o longstanding BLE wounds seen most recently in wound clinic in December and debridement recommended but pt deferred. Also w/ A fib on coumadin and CKD 4 w/ baseline creatinine of about 2 and 1.5 gm albuminuria, HTN, gout, HL, chronic ambulatory dysfunction/deconditioning, class 3 obesity, remote h/o breast CA s/p BL mastectomy, h/o IBS-D per DIL. She follows w/ Dr Garcia in CKD clinic Found on admission to have unstageable L heel pressure injury and stage 2 R heel pressure ulcer. She has undergone debridement and localized wound care for pressure ulcers. She was treated w/ cefepime and daptomycin and today/now transitioned to amoxicillin, doxycycline. She does take daily lasix 40 mg as an OP, which she has been receiving since admission. Yesterday she also received an additional 80 mg IV lasix for volume management. No extremes of BP or HR. I/O are incomplete for today but she has generally voided about 1 L daily. Seen on evenign rounds. BHAVNA and grandson at bedside. Pt denies sob, n/v, palpitations chest pain, uncontrolled musculoskeletal pain, rash, f/c, rigors, new/worrisome voiding sx or change in voiding habits. she does have very loose stools which have in hospital not responded to 1 prn imodium intermittently; BHAVNA states pt often needs 2 imodium for control Allergies Allergy/AdvReac Type Severity Reaction Status Date / Time No Known Allergies Allergy Verified 01/05/23 13:29 Home Medications Medication Instructions Recorded Confirmed Type allopurinol 300 mg tablet 300 mg PO QAM 08/15/22 05/21/24 History apple cider vinegar 500 mg tablet 500 mg PO PM 08/15/22 05/21/24 History aspirin 81 mg tablet,delayed 81 mg PO HS 08/15/22 05/21/24 History release cholecalciferol (vitamin D3) 125 10,000 unit PO QPM 08/15/22 05/21/24 History mcg (5,000 unit) tablet (Vitamin D3) cyanocobalamin (vitamin B-12) 2,500 mcg PO HS 08/15/22 05/21/24 History 1,000 mcg tablet (Vitamin B-12) diltiazem HCl 120 mg 120 mg PO QAM 08/15/22 05/21/24 History capsule,extended release 24 hr furosemide 40 mg tablet 40 mg PO QAM 08/15/22 05/21/24 History pravastatin 40 mg tablet 40 mg PO HS 08/15/22 05/21/24 History diphenhydramine 25 2 tab PO HS 11/16/22 05/21/24 History mg-acetaminophen 500 mg tablet (Tylenol PM Extra Strength) vit C 250 mg-vit E 90 mg-zinc 40 1 tab PO BID 11/16/22 05/21/24 History mg-copper 1 [id number] capsule (PreserVision AREDS-2) warfarin 2.5 mg tablet 2.5 mg PO UD 11/16/22 05/21/24 History digoxin 250 mcg (0.25 mg) tablet 125 mcg PO UD 01/05/23 05/21/24 History lisinopril 20 mg tablet 10 mg PO QAM 01/05/23 05/21/24 History Pepcid 1 tab PO QAM 05/21/24 05/21/24 History fenofibrate nanocrystallized 48 mg 48 mg PO QAM 05/21/24 05/21/24 History tablet loratadine 10 mg tablet (Claritin) 10 mg PO DAILY 05/21/24 05/21/24 History metoprolol succinate 50 mg 50 mg PO QAM 05/21/24 05/21/24 History tablet,extended release 24 hr nystatin 100,000 unit/gram topical 1 applic topical TID PRN Other 05/21/24 05/21/24 History powder glipizide 5 mg tablet 5 mg PO BID 05/22/24 05/22/24 History Patient History Medical History (Updated 05/26/24 @ 19:53 by Leia Hough MD, PhD) CKD (chronic kidney disease) stage 4, GFR 15-29 ml/min History of breast cancer On warfarin therapy Surgical History History of total right knee replacement History of total left knee replacement History of total abdominal hysterectomy History of cholecystectomy S/P mastectomy, bilateral Family History Other Family history non-contributory Social History Smoking Status: Never smoker Second Hand Exposure: No; Do You Dip or Chew Tobacco: No; Tobacco Cessation Education Requested by Patient: No Hx Alcohol Use: No Hx Substance Use: No Preferred Language: Irish Communication Ability: Effective Scooter Mechanic Required: No Beliefs That Will Affect Care: None marital status: Current Living Situation: Alone current occupational status: retired Other Information That Helps Us Care for You: No Feels Safe at Home: Yes Safety Concerns: Feels Safe At This Time Assistive Devices: Bedside Commode, Lift Chair, Stair Lift, Walker and Wheelchair Review of Systems 2 Review of Systems: All systems reviewed & are unremarkable except as noted in HPI & below Physical Exam 2 Constitutional: well developed, well nourished, + frail appearing and cooperative; no acute distress Eyes: EOM intact bilaterally ENMT: Mouth: + dry oral mucous membranes Neck: no nuchal rigidity Respiratory: normal respiratory effort Auscultation: + diminished lung sounds (narayan BL bases) Cardiovascular: Rate/Rhythm: regular rate and regular rhythm Heart Sounds: + murmur Extremities: no edema Gastrointestinal (Abdomen): Inspection/Auscultation: normal bowel sounds P ercussion/Palpation: abdomen soft; abdomen nontender Musculoskeletal: Extremities: strength 5/5 throughout Skin: no rashes, warm and dry R ankle draining even through dressing Neurologic: pfeiffer, fluent speech, no tremor Psychiatric: Orientation: alert and oriented x 3 Speech: normal rate/rhythm/volume of speech Results & Data Vital Signs (Past 12 Hours) Vital Signs Temp Pulse Pulse Resp BP Pulse Ox O2 Del Method 05/26/24 15:27 36.3 C L 77 18 126/82 93 Room Air 05/26/24 07:59 88 05/26/24 07:55 Room Air 05/26/24 07:15 36.4 C L 95 H 18 141/90 H 95 Room Air Laboratory Results 05/25/24 06:39 05/26/24 07:41 Diagnostic Findings no CXR this admission TTE 05/22 EF 60% mild CLVH; severe LA and moderate RA dilation; mild ; PASP 38
[2024-05-26] MEDS: AMOXICILLIN 500 MG CAP PO SCH (21:15)
[2024-05-26] MEDS: DOXYCYCLINE HYCLATE 100 MG CAP PO SCH (21:15)
[2024-05-27 06:46] LABS: Hematocrit (blood only) 33.8 % (37.0-47.0); Hemoglobin 10.7 g/dl (12.0-16.0); Mean Corpuscular Hgb Conc 31.7 g/dL (32.0-36.0); Mean Corpuscular Volume 91.6 fL (80.0-100.0); Mean Platelet Volume 10.1 fL (9.4-12.4); Nucleated RBC # (auto) 0.03 K/uL (0.00-0.12); Nucleated RBC % (auto) 0.5 %; Platelet Count 297 K/uL (130-400); RDW Coefficient of Variation 15.9 % (11.5-14.5); RDW Standard Deviation 51.9 fL (36.4-46.3); Red Blood Count 3.69 M/uL (4.20-5.40); White Blood Count 6.29 K/ul (4.8-10.8)
[2024-05-27 07:13] LABS: BUN Creatinine Ratio 24.6 (10-20); Calcium 10.5 mg/dl (8.6-10.3); Creatinine Clr Calc Pharmacy 16.3 ml/min; Magnesium 2.3 mg/dl (1.7-2.4); Potassium 4.5 mmol/L (3.5-5.1)
[2024-05-27 07:36] LABS: INR 1.4 (0.9-1.1); Prothrombin Time 14.6 Seconds (9.0-12.0)
--- NOTE | 2024-05-27 09:31 | Pharmacy Report ---
Pharmacy Glycemic Short Note 2 - Date of Service May 27, 2024 - Glycemic Short BSG Results (Last 24 hours): 05/26/24 05/26/24 05/26/24 11:31 16:44 20:15 Glucose POC Glucose 235 H 170 H 174 H 05/27/24 05/27/24 06:19 07:51 Glucose 146 H POC Glucose 188 H OUTPATIENT ANTIDIABETIC REGIMEN: * Previously on glipizide 5 mg BID--> this was stopped outpatient * A1c 9.1% 05/22/24 ASSESSMENT: 05/27 * Patient received a total of 63 units of insulin yesterday (35 units were basal). * Fasting BSG was 188mg/dL this morning, so the scale for HS Lantus has been adjusted (now will received 15 units of Lantus for BSG > 170 instead of > 200, etc) * BSGs were still above goal most of yesterday (235, 170, 174mg/dL), so bolus insulin parameters were tightened again today. The AM Lantus dose was also increased by ~10%. * Renal function slightly better than yesterday (SCr 3.01) and antibiotics changed to doxycycline and amoxicillin for left foot infection. 05/26 * Patient received a total of 60 units of insulin yesterday (35 units were basal) * Fasting BSG was in range this morning so basal insulin will remain the same (Lantus 25 units in the morning and Lantus scale at bedtime -0-15 units depending on BSG) * BSGs were above goal most of yesterday so CR was tightened yesterday. BSG reese to 235mg/dL at lunch today so CR tightened again today. * Patient with worsening renal function (SCr 3.13 today--baseline SCr is 2-1.2) and continues on daptomycin for and infection of the left foot. 05/24 * Patient is admitted with left heel wound, TREMAYNE on CKD --> SCr trending upward * Fasting 182-210 mg/dL the past three days- will initiate lantus using adjusted body weight stress of 1- 2 * Patient previously reported adequate control on glipizide per diabetes education note, will trial tightened parameters as previous has resulted in prandial BSGs in the 200s PLAN FOR INPATIENT GLYCEMIC CONTROL: * Hold outpatient oral diabetes medications * Basal insulin * Lantus 28 units SQ QAM , Lantus scale depending on BSG QPM (BSG < 140--0 units, BSG 140-170--10 units, BSG > 170--15 units) * Bolus insulin * NovoLog per scale ACHS or Q6hrs while NPO * Goal Range: Low 120 mg/dL - High 160 mg/dL * Correction Factor: 25 mg/dL/unit * Nutritional / Prandial insulin per carb ratio of 1 unit per 7 grams CHO consumed
--- NOTE | 2024-05-27 11:04 | Nephrology Progress Note ---
Date of Service May 27, 2024 Assessment & Plan (1) Acute renal failure superimposed on stage 4 chronic kidney disease: Plan: Stage one improving nonoliguric TREMAYNE on CKD 4. Baseline creatinine 2 as of September 2023 w/ 1.5 gm proteinuria. presented 05/21 w/ L diabetic foot infection and creatinine 2.8, reached karen of 2.4 on 05/22, then back to 2.9 as of 05/24 and plateau'd at about 3 ever since, w/ today's reading 3.o. Calling this TREMAYNE for now in setting of infection; quite possible however that this is CKD progression. Admission UA w/ 3+ LE > 50 WBC/hpf, no bacteria, 1+ protein and trace blood. relatively stable renal function with acceptable BP and volume status; K 4.5 controlled/ acceptable today; hgb today 10.7 and stable. Spent about 20 minutes reviewing CKD, TREMAYNE w/ pt and daughter today. -daily bmp -strict I/O to continue -no indication for acute dialysis ->held her lasix this am and would consider resuming daily dose 48 hrs from now (on 05/29) - unlikely to make a difference but worth a try >may be able to be d/c soon w/ close f/u of renal function as OP >stopped fenofibrate which can also adversely affect renal function will sign off NEPHRO D/C NOTE -d/c on daily lasix 40 mg -hold lisinopril at d/c >fenofibrate contraindicated in CKD 4 and would stop this permanently; defer to PCP and/or cardiology for alternative hypertriglyceride medications in renal failure >bmp weekly at rehab/SNF and contact [facility] nephrology Dr Garcia if concerns >bmp at PCP hospital d/c visit >bmp, cbc/d, ACR, UACM to be ordered by neph nurse and done no more than 72 hr before hospital d/c visit w/ Dr Garcia 3 weeks AFTER rehab/SNF d/c or 6 wks after hospital d/c, whichever is first Volume status, impression of causes of worsening renal function, recommendations for diuretics and d/c reviewed w/ Dr Manley via phone; we are in agreement. Admission and Anticipated Discharge Date Admission Date: May 21, 2024 Subjective no interval events. seen w/ daughter at bedside midday; pt denies sob, worsening edema, uncontrolled pain. got her wounds daughter thinks from scooting around house in w/c; to be non WB for several weeks while wounds heal now; pt w/ good appetite Review of Systems 2 Review of Systems: All systems reviewed & are unremarkable except as noted in Subjective Physical Exam 2 Constitutional: well developed, well nourished, + frail appearing and cooperative; no acute distress Eyes: EOM intact bilaterally ENMT: Mouth: + dry oral mucous membranes Neck: no nuchal rigidity Respiratory: normal respiratory effort Auscultation: + diminished lung sounds (narayan BL bases) Cardiovascular: Rate/Rhythm: regular rate and regular rhythm Heart Sounds: + murmur Extremities: no edema Gastrointestinal (Abdomen): Inspection/Auscultation: normal bowel sounds P ercussion/Palpation: abdomen soft; abdomen nontender Musculoskeletal: Extremities: strength 5/5 throughout Skin: no rashes, warm and dry Psychiatric: Orientation: alert and oriented x 3 Speech: normal rate/rhythm/volume of speech Results & Data Vital Signs (Past 12 Hours) Vital Signs Temp Pulse Resp BP Pulse Ox O2 Del Method 05/27/24 08:00 Room Air 05/27/24 07:48 36.4 C L 91 H 18 125/69 94 Room Air Laboratory Results 05/27/24 06:19 05/27/24 06:19
--- NOTE | 2024-05-27 13:28 | Hospitalist Progress Note ---
Date of Service May 27, 2024 Assessment & Plan (1) Diabetic infection of left foot: (2) Acute renal failure superimposed on stage 3 chronic kidney disease: (3) Pressure injury of left heel, unstageable: (4) Stage II pressure ulcer of right heel: (5) Type 2 diabetes mellitus: (6) Ambulatory dysfunction: (7) Persistent atrial fibrillation: (8) On warfarin therapy: (9) Acute on chronic diastolic (congestive) heart failure: Plan Ms. Lazar is an 89 woman with history of DM, n HF, Afib, htn, DM who was admitted due to infected left pressure ulcer of the heel and diabetic foot ulcer. Patient was evaluated by podiatry who did bedside debridement of left alethea on with notable improvement. Patient encouraged to off load. Daughter updated at bedside, plan for dispo to SNF #Left heel pressure ulcer POA s/p bedside debridement on 05/23 Patient presented to the hospital for evaluation Of wound at her left heel On examination; has black eschar with foul smelling discharge and surrounding necrotic tissue No leukocytosis CT of bilateral lower extremity was done; no underlying drainable collection. Ankle MRI showed a skin defect at the heel region with subcutaneous edema suggesting cellulitis; no suggestion of osteomyelitis. ESR elevated to 120, CRP elevated to 7.83 Superficial wound culture growing MSSA and Enterococcus faecalis( sensitivities pending.) Deep wound culture from bedside debridement on 05/23-moderate gram-positive cocci. Culture pending Transitioned to amoxicillin and doxycycline Plan for SNF #TREMAYNE on CKD Baseline creatinine of 2-2.2 Presented with creatinine of 2.8, status post hydration Continuing Lasix. Hold lisinopril Creatinine fluctuating around 2.8; will encourage oral hydration likely to resume op #Persistent atrial fibrillation Continue on Cardizem digoxin and Coumadin Echocardiogram shows EF of 60 to 65%, left atrium severely dilated #Type 2 diabetes mellitus stop taking oral agents couple of months ago as per PCP instructions Continue on insulin Follow-up with PCP for long-term management as HbA1c is 9% Discussed about resuming glipizide which she was taking prior to stopping it couple of months ago. #Hyperlipidemia- hold pravastatin while patient is on daptomycin #Goutcontinue on allopurinol #Hypertensioncontinue on metoprolol. Hold lisinopril Full code DVT prophylaxis Coumadin Plan of care discussed with patient's daughter at bedside on 05/27 Admission and Anticipated Discharge Date Admission Date: May 21, 2024 Subjective NAEO Denies any new concerns that Physical Exam Constitutional: WD/WN, vitals as above Respiratory: normal respiratory effort, lungs clear to auscultation Cardiovascular: irregularly irregular Results & Data Results & Data Vital Signs (Past 12 Hours) Vital Signs Temp Pulse Resp BP Pulse Ox O2 Del Method 05/27/24 08:00 Room Air 05/27/24 07:48 36.4 C L 91 H 18 125/69 94 Room Air Laboratory Results Short CBC 05/27/24 Range/Units 06:19 WBC 6.29 (4.8-10.8) K/ul Hgb 10.7 L (12.0-16.0) g/dl Hct 33.8 L (37.0-47.0) % Plt Count 297 (130-400) K/uL BMP 05/27/24 06:19 Sodium 138 Potassium 4.5 Chloride 100 Carbon Dioxide 28 BUN 74 H Creatinine 3.01 H Glucose 146 H Calcium 10.5 H Medications Administered Home Medications Medication Instructions Recorded Confirmed Last Taken allopurinol 300 mg tablet 300 mg PO [facility] 08/15/22 05/21/24 05/21/24 apple cider vinegar 500 mg tablet 500 mg PO PM 08/15/22 05/21/24 11/16/22 aspirin 81 mg tablet,delayed 81 mg PO 08/15/22 05/21/24 11/15/22 release cholecalciferol (vitamin D3) 125 10,000 unit PO QPM 08/15/22 05/21/24 11/15/22 mcg (5,000 unit) tablet (Vitamin D3) cyanocobalamin (vitamin B-12) 2,500 mcg PO 08/15/22 05/21/24 11/15/22 1,000 mcg tablet (Vitamin B-12) diltiazem HCl 120 mg 120 mg PO QAM 08/15/22 05/21/24 05/21/24 capsule,extended release 24 hr furosemide 40 mg tablet 40 mg PO QAM 08/15/22 05/21/24 05/21/24 pravastatin 40 mg tablet 40 mg PO 08/15/22 05/21/24 11/15/22 diphenhydramine 25 2 tab PO 11/16/22 05/21/24 11/15/22 mg-acetaminophen 500 mg tablet (Tylenol PM Extra Strength) vit C 250 mg-vit E 90 mg-zinc 40 1 tab PO BID 11/16/22 05/21/24 05/21/24 mg-copper 1 [id number] capsule (PreserVision AREDS-2) warfarin 2.5 mg tablet 2.5 mg PO UD 11/16/22 05/21/24 11/15/22 digoxin 250 mcg (0.25 mg) tablet 125 mcg PO UD 01/05/23 05/21/24 05/21/24 lisinopril 20 mg tablet 10 mg PO QAM 01/05/23 05/21/24 05/21/24 Pepcid 1 tab PO QAM 05/21/24 05/21/24 05/21/24 fenofibrate nanocrystallized 48 mg 48 mg PO QAM 05/21/24 05/21/24 05/21/24 tablet loratadine 10 mg tablet (Claritin) 10 mg PO DAILY 05/21/24 05/21/24 Unknown metoprolol succinate 50 mg 50 mg PO QAM 05/21/24 05/21/24 05/21/24 tablet,extended release 24 hr nystatin 100,000 unit/gram topical 1 applic topical TID PRN Other 05/21/24 05/21/24 Unknown powder glipizide 5 mg tablet 5 mg PO BID 05/22/24 05/22/24 Unknown Active Medications Generic Name Dose Route Start Last Admin Trade Name Bobq PRN Reason Stop Dose Admin Acetaminophen 500 mg 05/21/24 21:00 05/26/24 21:14 Acetaminophen 500 Mg Tab PO 06/20/24 20:59 500 mg HS [place] Administration Allopurinol 300 mg 05/22/24 09:00 05/27/24 08:43 Allopurinol 300 Mg Tab PO 06/21/24 08:59 300 mg QAM [place] Administration Amoxicillin 500 mg 05/26/24 21:00 05/27/24 08:42 Amoxicillin 500 Mg Cap PO 06/02/24 20:59 500 mg BID [place]NE Administration Protocol Aspirin 81 mg 05/24/24 21:00 05/26/24 21:16 Aspirin 81 Mg Ectab PO 06/23/24 20:59 81 mg HS [place]NE Administration Cyanocobalamin 2,500 mcg 05/21/24 21:00 05/26/24 21:16 Cyanocobalamin (B-12) 2,500 Mcg Tablet PO 06/20/24 20:59 2,500 mcg HS [place] Administration Digoxin 0.125 mg 05/24/24 09:00 05/26/24 07:59 Digoxin 0.125 Mg Tab PO 06/23/24 08:59 0.125 mg [id number] [place] Administration Diltiazem HCl 120 mg 05/22/24 09:00 05/27/24 08:43 Diltiazem Hcl 120 Mg Capcr PO 06/21/24 08:59 120 mg QAM [place] Administration Diphenhydramine HCl 25 mg 05/21/24 21:00 05/26/24 21:15 Diphenhydramine Capsule 25 Mg Cap PO 06/20/24 20:59 25 mg HS [place] Administration Doxycycline Hyclate 100 mg 05/26/24 21:00 05/27/24 08:43 Doxycycline Hyclate 100 Mg Cap PO 06/02/24 20:59 100 mg BID [place] Administration Famotidine 20 mg 05/22/24 09:00 05/27/24 12:07 Famotidine 20 Mg Tab PO 06/21/24 08:59 20 mg QAM [place] Administration Fenofibrate 48 mg 05/22/24 09:00 05/27/24 08:42 Fenofibrate Nanocrystallized 48 Mg Tablet PO 06/21/24 08:59 48 mg QAM [place] Administration Furosemide 40 mg 05/21/24 13:00 05/26/24 08:00 Furosemide 40 Mg Tab PO 06/20/24 12:59 40 mg QAM [place] Administration Insulin Aspart 0 units 05/21/24 16:30 05/27/24 12:05 Insulin Aspart Per Unit Charge SC 06/20/24 16:29 13 units ACHS [place]NE Administration Insulin Glargine 0 units 05/25/24 21:00 05/26/24 21:13 Lantus Per Unit Charge SQ 06/24/24 20:59 10 units HS [place] Administration Protocol Metoprolol Succinate 50 mg 05/22/24 09:00 05/27/24 08:43 Metoprolol Succ 50mg Ext Rel Tab PO 06/21/24 08:59 50 mg QAM [place] Administration Miconazole Nitrate 1 appln 05/24/24 01:00 05/27/24 08:45 Miconazole Nitrate Powder 85 Gm EXT 06/23/24 00:59 1 appln BID [place] Administration Multivitamins/Minerals 1 tab 05/21/24 21:00 05/27/24 08:43 Cerovite Adv Formula Tab PO 06/20/24 20:59 1 tab BID [place] Administration Polyethylene Glycol 17 gm 05/23/24 09:45 05/27/24 08:48 Polyethylene (Miralax) 17 Gm Pack PO 06/22/24 09:44 17 gm DAILY [place] Administration Pravastatin Sodium 40 mg 05/21/24 21:00 05/21/24 20:20 Pravastatin Sod 40 Mg Tab PO 06/20/24 20:59 40 mg HS [place] Administration Warfarin Sodium 5 mg 05/25/24 16:00 05/26/24 15:29 Warfarin Sod 5 Mg Tab PO 06/24/24 15:59 5 mg DAILY@1600 [place] Administration
--- NOTE | 2024-05-27 14:49 | Podiatry Progress Note ---
Date of Service May 27, 2024 Assessment & Plan (1) Stage II pressure ulcer of right heel: (2) Pressure injury of left heel, unstageable: Plan Pressure ulcer bilateral heel: -Continue offloading bilateral heel at all times while at rest with either pillows behind calves suspending the heel or in heel offloading boots -Bilateral heel wound dressing changed. Continue once daily dressing changes with Betadine wet-to-dry dressing to the bilateral heel wound until follow-up in the wound center. -Patient encouraged to follow-up with the wound center within 1 month of discharge for reevaluation of bilateral heel wounds. -Continue postop shoe to the left foot at all times while weightbearing. Okay to wear normal shoe gear or diabetic/hospital sock to the left foot while weightbearing. Use walker or other support at all times while weightbearing. -Agree with transition to p.o. antibiotics for discharge. Okay for discharge from podiatry standpoint. Thank you for consulting podiatry today in the care of this patient. Admission and Anticipated Discharge Date Admission Date: May 21, 2024 Subjective Patient seen resting comfortably in hospital bed. Heels are elevated on pillows with heel offloading boots in place. Denies pain in the bilateral foot. Seen by physical therapy today and reports weightbearing with notable instability just prompted the decision to discharge to assisted facility. Reviewed dressing changes with patient and daughter. Physical Exam Physical Exam: Left heel: Unstageable pressure ulcer: Stable black eschar to the posterior plantar junction of the left heel. No active drainage. Continued growth of encroaching epithelial tissue to the more superficial surrounding ulceration. No erythema or edema. No lymphangitis or streaking. Right heel: Stage II pressure ulcer: Decreased wound dimensions since last seen. Wound remains superficial. No signs of local soft tissue infection. Results & Data Results & Data Vital Signs (Past 12 Hours) Vital Signs Temp Pulse Resp BP Pulse Ox O2 Del Method 05/27/24 14:23 36.3 C L 81 18 105/69 97 Room Air 05/27/24 08:00 Room Air 05/27/24 07:48 36.4 C L 91 H 18 125/69 94 Room Air Laboratory Results White blood count 6.29, Coding Level of Care Code 17847 SUB INP/OBS CARE 06/25MIN Diagnoses Stage II pressure ulcer of right heel L89.612 Pressure injury of left heel, unstageable L89.620
--- NOTE | 2024-05-28 07:40 | Hospitalist Progress Note ---
Date of Service May 28, 2024 Assessment & Plan (1) Diabetic infection of left foot: (2) Acute renal failure superimposed on stage 3 chronic kidney disease: (3) Pressure injury of left heel, unstageable: (4) Stage II pressure ulcer of right heel: (5) Type 2 diabetes mellitus: (6) Ambulatory dysfunction: (7) Persistent atrial fibrillation: (8) On warfarin therapy: (9) Acute on chronic diastolic (congestive) heart failure: Plan Ms. Lazar is an 89 woman with history of DM, n HF, Afib, htn, DM who was admitted due to infected left pressure ulcer of the heel and diabetic foot ulcer. Patient was evaluated by podiatry who did bedside debridement of left alethea on with notable improvement. Patient encouraged to off load. Daughter updated at bedside, plan for dispo to SNF #Left heel pressure ulcer POA s/p bedside debridement on 05/23 Patient presented to the hospital for evaluation Of wound at her left heel On examination; has black eschar with foul smelling discharge and surrounding necrotic tissue No leukocytosis CT of bilateral lower extremity was done; no underlying drainable collection. Ankle MRI showed a skin defect at the heel region with subcutaneous edema suggesting cellulitis; no suggestion of osteomyelitis. ESR elevated to 120, CRP elevated to 7.83 Superficial wound culture growing MSSA and Enterococcus faecalis( sensitivities pending.) Deep wound culture from bedside debridement on 05/23-moderate gram-positive cocci. Culture pending Transitioned to amoxicillin and doxycycline Plan for SNF #TREMAYNE on CKD Baseline creatinine of 2-2.2 Presented with creatinine of 2.8, status post hydration Continuing Lasix. Hold lisinopril Creatinine fluctuating around 2.8; will encourage oral hydration Resume furosemide tomorrow, d/c on 40mg lasix discontinued fenofibrate #Persistent atrial fibrillation Continue on Cardizem digoxin and Coumadin Echocardiogram shows EF of 60 to 65%, left atrium severely dilated #Type 2 diabetes mellitus stop taking oral agents couple of months ago as per PCP instructions Continue on insulin Follow-up with PCP for long-term management as HbA1c is 9% Discussed about resuming glipizide which she was taking prior to stopping it couple of months ago. #Hyperlipidemia- hold pravastatin while patient is on daptomycin #Goutcontinue on allopurinol #Hypertensioncontinue on metoprolol. Hold lisinopril Full code DVT prophylaxis Coumadin Plan of care discussed with patient's daughter at bedside on 05/28 Admission and Anticipated Discharge Date Admission Date: May 21, 2024 Subjective NAEO Physical Exam Constitutional: WD/WN, vitals as above Respiratory: normal respiratory effort, lungs clear to auscultation Cardiovascular: RRR, no murmur, no edema Gastrointestinal (Abdomen): normal bowel sounds, soft, nontender, no hepatosplenomegaly Results & Data Results & Data Vital Signs (Past 12 Hours) Vital Signs Temp Pulse Resp BP Pulse Ox Pulse Ox O2 Del Method 05/27/24 21:41 Room Air 05/27/24 21:41 94 05/27/24 20:28 36.5 C 86 16 124/81 94 Room Air O2 Del Method 05/27/24 21:41 05/27/24 21:41 Room Air 05/27/24 20:28 Laboratory Results Short CBC 05/28/24 Range/Units 06:49 WBC 6.72 (4.8-10.8) K/ul Hgb 10.5 L (12.0-16.0) g/dl Hct 32.9 L (37.0-47.0) % Plt Count 311 (130-400) K/uL [facility] 05/28/24 06:49 Sodium 138 Potassium 4.7 Chloride 101 Carbon Dioxide 29 BUN 80 H Creatinine 3.22 H Glucose 130 H Calcium 10.3 Medications Administered Home Medications Medication Instructions Recorded Confirmed Last Taken allopurinol 300 mg tablet 300 mg PO QAM 08/15/22 05/21/24 05/21/24 apple cider vinegar 500 mg tablet 500 mg PO PM 08/15/22 05/21/24 11/16/22 aspirin 81 mg tablet,delayed 81 mg PO 08/15/22 05/21/24 11/15/22 release cholecalciferol (vitamin D3) 125 10,000 unit PO QPM 08/15/22 05/21/24 11/15/22 mcg (5,000 unit) tablet (Vitamin D3) cyanocobalamin (vitamin B-12) 2,500 mcg PO 08/15/22 05/21/24 11/15/22 1,000 mcg tablet (Vitamin B-12) diltiazem HCl 120 mg 120 mg PO QAM 08/15/22 05/21/24 05/21/24 capsule,extended release 24 hr furosemide 40 mg tablet 40 mg PO QAM 08/15/22 05/21/24 05/21/24 pravastatin 40 mg tablet 40 mg PO HS 08/15/22 05/21/24 11/15/22 diphenhydramine 25 2 tab PO HS 11/16/22 05/21/24 11/15/22 mg-acetaminophen 500 mg tablet (Tylenol PM Extra Strength) vit C 250 mg-vit E 90 mg-zinc 40 1 tab PO BID 11/16/22 05/21/24 05/21/24 mg-copper 1 [id number] capsule (PreserVision AREDS-2) warfarin 2.5 mg tablet 2.5 mg PO UD 11/16/22 05/21/24 11/15/22 digoxin 250 mcg (0.25 mg) tablet 125 mcg PO UD 01/05/23 05/21/24 05/21/24 lisinopril 20 mg tablet 10 mg PO QAM 01/05/23 05/21/24 05/21/24 Pepcid 1 tab PO QA 05/21/24 05/21/24 05/21/24 fenofibrate nanocrystallized 48 mg 48 mg PO QA 05/21/24 05/21/24 05/21/24 tablet loratadine 10 mg tablet (Claritin) 10 mg PO DAILY 05/21/24 05/21/24 Unknown metoprolol succinate 50 mg 50 mg PO QA 05/21/24 05/21/24 05/21/24 tablet,extended release 24 hr nystatin 100,000 unit/gram topical 1 applic topical TID PRN Other 05/21/24 05/21/24 Unknown powder glipizide 5 mg tablet 5 mg PO BID 05/22/24 05/22/24 Unknown Active Medications Generic Name Dose Route Start Last Admin Trade Name Freq PRN Reason Stop Dose Admin Acetaminophen 500 mg 05/21/24 21:00 05/27/24 21:39 Acetaminophen 500 Mg Tab PO 06/20/24 20:59 500 mg HS [facility] Administration Allopurinol 300 mg 05/22/24 09:00 05/28/24 08:44 Allopurinol 300 Mg Tab PO 06/21/24 08:59 300 mg QA [facility] Administration Amoxicillin 500 mg 05/26/24 21:00 05/28/24 08:43 Amoxicillin 500 Mg Cap PO 06/02/24 20:59 500 mg BID [facility] Administration Protocol Aspirin 81 mg 05/24/24 21:00 05/27/24 21:41 Aspirin 81 Mg Ectab PO 06/23/24 20:59 81 mg HS [facility] Administration Cyanocobalamin 2,500 mcg 05/21/24 21:00 05/27/24 21:41 Cyanocobalamin (B-12) 2,500 Mcg Tablet PO 06/20/24 20:59 2,500 mcg HS [place] Administration Digoxin 0.125 mg 05/24/24 09:00 05/28/24 08:44 Digoxin 0.125 Mg Tab PO 06/23/24 08:59 0.125 mg [id number] [place] Administration Diltiazem HCl 120 mg 05/22/24 09:00 05/28/24 08:43 Diltiazem Hcl 120 Mg Capcr PO 06/21/24 08:59 120 mg QAM [facility] Administration Diphenhydramine HCl 25 mg 05/21/24 21:00 05/27/24 21:40 Diphenhydramine Capsule 25 Mg Cap PO 06/20/24 20:59 25 mg HS [place] Administration Doxycycline Hyclate 100 mg 05/26/24 21:00 05/28/24 08:43 Doxycycline Hyclate 100 Mg Cap PO 06/02/24 20:59 100 mg BID [place] Administration Famotidine 20 mg 05/22/24 09:00 05/28/24 14:15 Famotidine 20 Mg Tab PO 06/21/24 08:59 20 mg QAM [place] Administration Furosemide 40 mg 05/21/24 13:00 05/26/24 08:00 Furosemide 40 Mg Tab PO 06/20/24 12:59 40 mg QAM [facility] Administration Insulin Aspart 0 units 05/21/24 16:30 05/28/24 12:21 Insulin Aspart Per Unit Charge SC 06/20/24 16:29 14 units ACHS [facility] Administration Insulin Glargine 0 units 05/25/24 21:00 05/27/24 21:46 Lantus Per Unit Charge SQ 06/24/24 20:59 10 units HS [facility] Administration Protocol Insulin Glargine 28 units 05/28/24 09:00 05/28/24 08:49 Lantus Per Unit Charge SC 06/27/24 08:59 28 units DAILY [facility] Administration Metoprolol Succinate 50 mg 05/22/24 09:00 05/28/24 08:44 Metoprolol Succ 50mg Ext Rel Tab PO 06/21/24 08:59 50 mg QAM [facility] Administration Miconazole Nitrate 1 appln 05/24/24 01:00 05/28/24 08:49 Miconazole Nitrate Powder 85 Gm EXT 06/23/24 00:59 1 appln BID [facility] Administration Multivitamins/Minerals 1 tab 05/21/24 21:00 05/28/24 08:43 Cerovite Adv Formula Tab PO 06/20/24 20:59 1 tab BID [facility] Administration Polyethylene Glycol 17 gm 05/23/24 09:45 05/28/24 09:08 Polyethylene (Miralax) 17 Gm Pack PO 06/22/24 09:44 Not Given DAILY [facility] Pravastatin Sodium 40 mg 05/21/24 21:00 05/21/24 20:20 Pravastatin Sod 40 Mg Tab PO 06/20/24 20:59 40 mg HS [facility] Administration Warfarin Sodium 5 mg 05/25/24 16:00 05/27/24 17:20 Warfarin Sod 5 Mg Tab PO 06/24/24 15:59 5 mg DAILY@1600 [facility] Administration
[2024-05-28 07:47] LABS: Hematocrit (blood only) 32.9 % (37.0-47.0); Hemoglobin 10.5 g/dl (12.0-16.0); Mean Corpuscular Hemoglobin 29.2 pg (25.0-34.0); Mean Corpuscular Hgb Conc 31.9 g/dL (32.0-36.0); Mean Corpuscular Volume 91.6 fL (80.0-100.0); Mean Platelet Volume 10.3 fL (9.4-12.4); Nucleated RBC # (auto) 0.02 K/uL (0.00-0.12); Nucleated RBC % (auto) 0.3 %; Platelet Count 311 K/uL (130-400); RDW Coefficient of Variation 15.9 % (11.5-14.5); RDW Standard Deviation 51.3 fL (36.4-46.3); Red Blood Count 3.59 M/uL (4.20-5.40); White Blood Count 6.72 K/ul (4.8-10.8)
[2024-05-28 08:04] LABS: BUN Creatinine Ratio 24.8 (10-20); Calcium 10.3 mg/dl (8.6-10.3); Creatinine Clr Calc Pharmacy 15.3 ml/min; Potassium 4.7 mmol/L (3.5-5.1)
[2024-05-28 08:13] LABS: INR 1.5 (0.9-1.1); Prothrombin Time 15.9 Seconds (9.0-12.0)
[2024-05-28] MEDS: LANTUS PER UNIT CHARGE SC SCH (08:49)
[2024-05-28] MEDS: AMMONIUM LACTATE 12% LOTION 225 GM BTL EXT SCH (20:20)
[2024-05-29 07:30] LABS: INR 1.6 (0.9-1.1); Prothrombin Time 16.3 Seconds (9.0-12.0)
--- NOTE | 2024-05-29 13:45 | Hospitalist Progress Note ---
Date of Service May 29, 2024 Assessment & Plan (1) Diabetic infection of left foot: (2) Acute renal failure superimposed on stage 3 chronic kidney disease: (3) Pressure injury of left heel, unstageable: (4) Stage II pressure ulcer of right heel: (5) Type 2 diabetes mellitus: (6) Ambulatory dysfunction: (7) Persistent atrial fibrillation: (8) On warfarin therapy: (9) Acute on chronic diastolic (congestive) heart failure: Plan Patient with compensated state Continue with oral antibiotics Continue with wound care INR still subtherapeutic, increase warfarin dosing Continue therapies Anticipating SNF placement when bed available at [facility] Admission and Anticipated Discharge Date Admission Date: May 21, 2024 Subjective No acute issues overnight. Patient denies any shortness of breath. Tolerating diet. Physical Exam Physical Exam: Constitutional: Alert HEENT: Mucous membranes moist. Lungs: Clear to auscultation, decreased, no wheezes rales or rhonchi CV: S1-S2, regular Abdomen: Soft, nontender, nondistended Extremities: 2+ edema lower extremities, less edema in dependent thighs, dressings on bilateral heels dry and intact Neuro: No focal deficits Psych: Cooperative, normal mood Results & Data Results & Data Vital Signs (Past 12 Hours) Vital Signs Temp Pulse Resp BP Pulse Ox O2 Del Method 05/29/24 08:30 Room Air 05/29/24 06:58 36.5 C 96 H 17 149/84 H 93 Room Air Diagnostic Findings INR 1.6 Glucoses reviewed
[2024-05-29] MEDS: WARFARIN SOD 6 MG TAB PO SCH (17:33)
[2024-05-29] MEDS: COUGH DROP (SUGAR FREE) LOZ 24 LOZ/1 BOX BUCCAL PRN (20:20)
--- NOTE | 2024-05-30 10:53 | Podiatry Progress Note ---
Date of Service May 30, 2024 Assessment & Plan (1) Pressure injury of left heel, unstageable: (2) Stage II pressure ulcer of right heel: Plan Pressure ulcer bilateral heel: -Continue offloading bilateral heel at all times while at rest with either pillows behind calves suspending the heel or in heel offloading boots -Bilateral heel wound dressing changed. Continue once daily dressing changes with Betadine wet-to-dry dressing to the bilateral heel wound until follow-up in the wound center. Right foot dressing changed to 2 x 2 gauze soaked in Betadine followed by a bordered foam dressing. -Patient encouraged to follow-up with the wound center within 1 month of discharge for reevaluation of bilateral heel wounds. -Patient feels that postop shoe on the left foot may be contributing to her instability. Noting that the wound continues to progress rapidly and healing and the fact that it is posterior plantar on the heel I think it is reasonable for her to begin weightbearing bilateral in hospital socks which she reports is her standard footwear at home. Use walker or other support at all times while weightbearing. -Agree with transition to p.o. antibiotics for discharge. Okay for discharge from podiatry standpoint. Thank you for consulting podiatry today in the care of this patient. Admission and Anticipated Discharge Date Admission Date: May 21, 2024 Subjective Patient denies issues with the bilateral foot over the weekend. Seen today resting comfortably in hospital bed with her daughter at bedside. Heels are elevated off the bed with pillows behind the leg and heel offloading boots in place. Dressings changed once daily over the weekend with Betadine wet-to-dry without issue. Denies nausea vomiting fever chills. Reports working with physical therapy earlier today using postop shoe to the left foot and hospital sock on the right. She was able to stand and move on first attempt weightbearing however when attempting second round of weightbearing she was unable to bear weight and maintain stability to the left lower extremity. Patient feels that a major contributing factor to her instability may be the use of her postop shoe on the left foot. Following discussion and evaluation of wound I think it is reasonable to allow patient to weight-bear for short distance and transfer in hospital socks bilaterally. Physical Exam Physical Exam: Left foot: Unstageable pressure injury to the posterior plantar heel: Surrounding superficial wound continues to decrease in size with increased epithelial tissue to the borders. Epithelial tissue now extends to the borders of eschar in many locations. Scant serous drainage to the dressing. No malodor. No signs of local soft tissue infection. Right foot: Stage II pressure injury. Posterior lateral right heel (not on the weightbearing surface) this wound is decreased in size by 50% over the weekend now measuring 1.5 x 1.0 x 0.2 centimeters. Scant drainage to the dressing. No malodor. No purulence. No signs of local soft tissue infection. Results & Data Results & Data Vital Signs (Past 12 Hours) Vital Signs Temp Pulse Resp BP Pulse Ox O2 Del Method 05/30/24 09:54 Room Air 05/30/24 07:28 36.4 C L 85 18 141/83 H 93 Room Air Coding [place] [address] SUB INP/OBS CARE 06/25MIN Patient Type Established Diagnoses Pressure injury of left heel, unstageable L89.620 Stage II pressure ulcer of right heel L89.612
[2024-05-30 13:37] LABS: INR 1.7 (0.9-1.1); Prothrombin Time 17.7 Seconds (9.0-12.0)
--- NOTE | 2024-05-30 14:03 | Pharmacy Report ---
Pharmacy Glycemic Short Note 2 - Date of Service May 30, 2024 - Glycemic Short BSG Results (Last 24 hours): 05/29/24 05/29/24 05/30/24 16:47 20:12 07:28 POC Glucose 137 H 125 H 100 H 05/30/24 11:39 POC Glucose 167 H OUTPATIENT ANTIDIABETIC REGIMEN: * Previously on glipizide 5 mg BID--> this was stopped outpatient * A1c 9.1% 05/22/24 ASSESSMENT: 05/30 * Angela received 70 units of insulin yesterday (38 were basal) * Fasting BSG this AM slightly below goal range, if continuing to trend low will reduce basal dosing. * No changes to NovoLog at this time, she continues on oral amoxicillin and doxycycline. 05/27 * Patient received a total of 63 units of insulin yesterday (35 units were basal). * Fasting BSG was 188mg/dL this morning, so the scale for HS Lantus has been adjusted (now will received 15 units of Lantus for BSG > 170 instead of > 200, etc) * BSGs were still above goal most of yesterday (235, 170, 174mg/dL), so bolus insulin parameters were tightened again today. The AM Lantus dose was also increased by ~10%. * Renal function slightly better than yesterday (SCr 3.01) and antibiotics changed to doxycycline and amoxicillin for left foot infection. 05/26 * Patient received a total of 60 units of insulin yesterday (35 units were basal) * Fasting BSG was in range this morning so basal insulin will remain the same (Lantus 25 units in the morning and Lantus scale at bedtime -0-15 units depending on BSG) * BSGs were above goal most of yesterday so CR was tightened yesterday. BSG reese to 235mg/dL at lunch today so CR tightened again today. * Patient with worsening renal function (SCr 3.13 today--baseline SCr is 2-1.2) and continues on daptomycin for and infection of the left foot. 05/24 * Patient is admitted with left heel wound, TREMAYNE on CKD --> SCr trending upward * Fasting 182-210 mg/dL the past three days- will initiate lantus using adjusted body weight stress of 1- 2 * Patient previously reported adequate control on glipizide per diabetes education note, will trial tightened parameters as previous has resulted in prandial BSGs in the 200s PLAN FOR INPATIENT GLYCEMIC CONTROL: * Hold outpatient oral diabetes medications * Basal insulin * Lantus 28 units SQ QAM , Lantus scale depending on BSG QPM (BSG < 140--0 units, BSG 140-170--10 units, BSG > 170--15 units) * Bolus insulin * NovoLog per scale ACHS or Q6hrs while NPO * Goal Range: Low 120 mg/dL - High 160 mg/dL * Correction Factor: 25 mg/dL/unit * Nutritional / Prandial insulin per carb ratio of 1 unit per 6 grams CHO consumed
--- NOTE | 2024-05-30 16:34 | Hospitalist Progress Note ---
Date of Service May 30, 2024 Assessment & Plan (1) Diabetic infection of left foot: (2) Acute renal failure superimposed on stage 3 chronic kidney disease: (3) Pressure injury of left heel, unstageable: (4) Stage II pressure ulcer of right heel: (5) Type 2 diabetes mellitus: (6) Ambulatory dysfunction: (7) Persistent atrial fibrillation: (8) On warfarin therapy: (9) Acute on chronic diastolic (congestive) heart failure: Plan Continue with daily wound changes INR slowly trending upward, continue increased dose of 6 mg started yesterday Continue therapies Case management pursuing skilled rehab placement Approaching 10 days of IV and oral antibiotic therapy, anticipate discontinuing antibiotics after tomorrow's dosing Monitor renal function in a.m. Patient's glucose is becoming better controlled with insulin. Based on this and her renal function at believe insulin therapy will be the best management of her diabetes going forward. Start diabetes education Updated daughter via phone Admission and Anticipated Discharge Date Admission Date: May 21, 2024 Subjective Patient feeling well. Tolerating wound dressing changes. Attempting to participate in therapy is much as possible Physical Exam Physical Exam: Constitutional: Alert, nontoxic HEENT: Mucous membranes moist. Lungs: Clear to auscultation, decreased, no wheezes rales or rhonchi CV: S1-S2, regular Abdomen: Soft, nontender, nondistended Extremities: No significant edema, dressings bilateral heels Neuro: No focal deficits Psych: Cooperative, normal mood Results & Data Results & Data Vital Signs (Past 12 Hours) Vital Signs Temp Pulse Resp BP Pulse Ox O2 Del Method 05/30/24 15:15 36.4 C L 78 16 139/69 96 Room Air 05/30/24 09:54 Room Air 05/30/24 07:28 36.4 C L 85 18 141/83 H 93 Room Air Laboratory Results INR 1.7
[2024-05-31 08:56] LABS: Hemoglobin 11.2 g/dl (12.0-16.0); Mean Corpuscular Volume 90.7 fL (80.0-100.0); Mean Platelet Volume 10.4 fL (9.4-12.4); Nucleated RBC # (auto) 0.02 K/uL (0.00-0.12); Nucleated RBC % (auto) 0.3 %; Platelet Count 299 K/uL (130-400); RDW Coefficient of Variation 16.3 % (11.5-14.5); RDW Standard Deviation 52.8 fL (36.4-46.3); Red Blood Count 3.86 M/uL (4.20-5.40); White Blood Count 7.44 K/ul (4.8-10.8)
[2024-05-31 09:06] LABS: Calcium 10.4 mg/dl (8.6-10.3); Creatinine Clr Calc Pharmacy 15.8 ml/min; Potassium 4.8 mmol/L (3.5-5.1)
[2024-05-31 09:36] LABS: Prothrombin Time 20.1 Seconds (9.0-12.0)
--- NOTE | 2024-05-31 14:55 | Hospitalist Progress Note ---
Date of Service May 31, 2024 Assessment & Plan (1) Diabetic infection of left foot: (2) Acute renal failure superimposed on stage 3 chronic kidney disease: (3) Pressure injury of left heel, unstageable: (4) Stage II pressure ulcer of right heel: (5) Type 2 diabetes mellitus: (6) Ambulatory dysfunction: (7) Persistent atrial fibrillation: (8) On warfarin therapy: (9) Acute on chronic diastolic (congestive) heart failure: Plan Patient presented initially with diabetic/pressure ulcer infection of the bilateral heels. Completing course of oral antibiotics today. Continue with wound care Renal function has slightly improved, suspect this is new baseline Glucoses Being managed by insulin, with patient's renal dysfunction management with insulin moving forward is most likely her best option. Diabetes education consulted. Case management communicating with [facility] for placement. Awaiting insurance authorization. Continue other current medications Admission and Anticipated Discharge Date Admission Date: May 21, 2024 Subjective Patient doing well. No complaints. Disappointed that she may need to stay on insulin to manage her diabetes Physical Exam Physical Exam: Constitutional: Alert, nontoxic HEENT: Mucous membranes moist. Lungs: Clear to auscultation, decreased, no wheezes rales or rhonchi CV: S1-S2, regular Abdomen: Soft, nontender, nondistended Extremities: No significant edema dressings on bilateral heels dry and intact Neuro: No focal deficits Psych: Cooperative, normal mood Results & Data Results & Data Vital Signs (Past 12 Hours) Vital Signs Temp Pulse Resp BP Pulse Ox O2 Del Method 05/31/24 09:21 Room Air 05/31/24 07:02 36.3 C L 83 18 139/82 93 Room Air Diagnostic Findings Reviewed imaging, laboratory and diagnostic studies. Pertinent findings as below. WBC 7.4 Hemoglobin 11.2 INR 2.0 Electrolytes stable Creatinine 2.94, improved Digoxin 0.5
[2024-06-01 09:01] LABS: INR 2.3 (0.9-1.1)
--- NOTE | 2024-06-01 14:54 | Podiatry Progress Note ---
Date of Service June 01, 2024 Assessment & Plan (1) Pressure injury of left heel, unstageable: (2) Stage II pressure ulcer of right heel: Plan Pressure ulcer bilateral heel: -Continue offloading bilateral heel at all times while at rest with either pillows behind calves suspending the heel or in heel offloading boots -Bilateral heel wound dressing changed. Continue once daily dressing changes with Betadine wet-to-dry dressing to the bilateral heel wound until follow-up in the wound center. Right foot dressing changed to 2 x 2 gauze soaked in Betadine followed by a bordered foam dressing. Reviewed driscoll principles of wound healing with patient and her daughter: Continue to avoid persistent pressure and floating the heels either with offloading boots or a pillow behind the legs so there is no contact with the underlying mattress, chair, foot rest etc. Second most important treatment principle is that the wound be kept clean and dry. -Patient encouraged to follow-up with the wound center within 1 month of discharge for reevaluation of bilateral heel wounds. -Okay to continue weightbearing bilateral in hospital socks which she reports is her standard footwear at home. Use walker or other support at all times while weightbearing. -Agree with transition to p.o. antibiotics for discharge. Okay for discharge from podiatry standpoint. Thank you for consulting podiatry today in the care of this patient. Admission and Anticipated Discharge Date Admission Date: May 21, 2024 Subjective Patient seen resting comfortably in hospital bed with daughter present at bedside. Patient's nurse present in the room performing dressing changes to the bilateral heel. Patient denies pain in the bilateral foot. She has continued bedside lower extremity exercises without issue. Plans to discharge to [place] care in the near future pending insurance approval. Physical Exam Physical Exam: Left foot: Unstageable pressure injury to the posterior plantar heel: Surrounding superficial wound continues to decrease in size with increased epithelial tissue to the borders. Epithelial tissue now extends to the borders of eschar in many locations. Scant serous drainage to the dressing. Mild malodor noted today removal of dressing with no significant increase in drainage or signs of local soft tissue infection. Right foot: Stage II pressure injury: Posterior lateral right heel (not on the weightbearing surface). Measuring 1.0 x 0.8 x 0.2 centimeters. Scant drainage to the dressing. No malodor. No purulence. No signs of local soft tissue infection. Results & Data Results & Data Vital Signs (Past 12 Hours) Vital Signs Temp Pulse Resp BP Pulse Ox O2 Del Method 06/01/24 14:31 36.4 C L 71 16 117/78 94 Room Air 06/01/24 07:16 37.0 C 88 16 130/84 95 Room Air Coding [place] [address] SUB INP/OBS CARE 06/25MIN Patient Type Established History Problem Focused Exam Problem Focused Diagnoses Pressure injury of left heel, unstageable L89.620 Stage II pressure ulcer of right heel L89.612
--- NOTE | 2024-06-01 18:03 | Hospitalist Progress Note ---
Date of Service June 01, 2024 Assessment & Plan (1) Diabetic infection of left foot: (2) Acute renal failure superimposed on stage 3 chronic kidney disease: (3) Pressure injury of left heel, unstageable: (4) Stage II pressure ulcer of right heel: (5) Type 2 diabetes mellitus: (6) Ambulatory dysfunction: (7) Persistent atrial fibrillation: (8) On warfarin therapy: (9) Acute on chronic diastolic (congestive) heart failure: Plan Ms. Lazar is an 89 woman with history of DM, n HF, Afib, htn, DM who was admitted due to infected left pressure ulcer of the heel and diabetic foot ulcer. Patient was evaluated by podiatry who did bedside debridement of left alethea on with notable improvement. Patient encouraged to off load. Completing course of oral antibiotics today. #Left heel pressure ulcer POA s/p bedside debridement on 05/23 Patient presented to the hospital for evaluation Of wound at her left heel On examination; had black eschar with foul smelling discharge and surrounding necrotic tissue No leukocytosis CT of bilateral lower extremity was done; no underlying drainable collection. Ankle MRI showed a skin defect at the heel region with subcutaneous edema suggesting cellulitis; no suggestion of osteomyelitis. ESR elevated to 120, CRP elevated to 7.83 Superficial wound culture growing MSSA and Enterococcus faecalis Deep wound culture from bedside debridement on 05/23- posit for MSSA On amoxicillin and doxycycline - to finish course today Plan for SNF #[facility] on CKD Baseline creatinine of 2-2.2 Presented with creatinine of 2.8, status post hydration Continuing Lasix. Hold lisinopril Resumed furosemide, d/c on 40mg lasix discontinued fenofibrate - seen by nephrology - Cr stable ~3 NEPHRO D/C NOTE -d/c on daily lasix 40 mg -hold lisinopril at d/c >fenofibrate contraindicated in CKD 4 and would stop this permanently; defer to PCP and/or cardiology for alternative hypertriglyceride medications in renal fa ilure >bmp weekly at rehab/SNF and contact [facility] nephrology Dr Garcia if concerns >bmp at PCP hospital d/c visit >bmp, cbc/d, ACR, UACM to be ordered by neph nurse and done no more than 72 hr before hospital d/c visit w/ Dr Garcia 3 weeks AFTER rehab/SNF d/c or 6 wks after hospital d/c, whichever is first #Persistent atrial fibrillation Continue on Cardizem digoxin and Coumadin Echocardiogram shows EF of 60 to 65%, left atrium severely dilated #Type 2 diabetes mellitus stop taking oral agents couple of months ago as per PCP instructions Continue on insulin while inpt Follow-up with PCP for long-term management as HbA1c is 9% Discussed about resuming glipizide which she was taking prior to stopping it couple of months ago. environmental educator also consulted PCP updated #Hyperlipidemia- hold pravastatin while patient is on daptomycin #Goutcontinue on allopurinol #Hypertensioncontinue on metoprolol. Hold lisinopril Full code DVT prophylaxis Coumadin Admission and Anticipated Discharge Date Admission Date: May 21, 2024 Subjective Pt seen in follow up Seen by podiatry - ok to DC Also seen by nephrology for [place] - Dc recs provided and reviewed with the pt Currently laying in bed in NAD, pt's DIL present at the bedside Overall pt feels well Denies any chest pain, shortness of breath, palpitations, abd.pain, n/v Review of Systems Review of Systems: All systems reviewed & are unremarkable except as noted in Subjective Physical Exam Physical Exam: Constitutional: obese elderly F in NAD HEENT: NC/AT, EOMI, Mucous membranes moist. Lungs: Clear to auscultation, decreased, no wheezes rales or rhonchi CV: S1-S2, regular Abdomen: Soft, nontender, nondistended Extremities: No significant edema dressings on bilateral heels dry and intact Neuro: No focal deficits Psych: Cooperative, normal mood Results & Data Results & Data Vital Signs (Past 12 Hours) Vital Signs Temp Pulse Resp BP Pulse Ox O2 Del Method 06/01/24 14:31 36.4 C L 71 16 117/78 94 Room Air 06/01/24 07:16 37.0 C 88 16 130/84 95 Room Air Laboratory Results 06/01/24 06/01/24 06/01/24 Range/Units 16:22 11:34 08:10 PT 23.0 H (9.0-12.0) Seconds INR 2.3 H (0.9-1.1) POC Glucose 140 H 221 H (70-99) mg/dl 06/01/24 05/31/24 Range/Units 07:55 20:42 PT (9.0-12.0) Seconds INR (0.9-1.1) POC Glucose 100 H 123 H (70-99) mg/dl Medications Administered Current Inpatient Medications Acetaminophen (Acetaminophen 325 Mg Tab) 650 mg PO Q4H PRN PRN Reason: Pain or Fever Stop: 06/20/24 13:08 Acetaminophen (Acetaminophen 500 Mg Tab) 500 mg PO [facility] Stop: 06/20/24 20:59 Last Admin: 05/31/24 20:41 Dose: 500 mg Allopurinol (Allopurinol 300 Mg Tab) 300 mg PO [facility] Stop: 06/21/24 08:59 Last Admin: 06/01/24 10:10 Dose: 300 mg Amoxicillin (Amoxicillin 500 Mg Cap) 500 mg PO BID [facility]; Protocol Stop: 06/01/24 23:59 Last Admin: 06/01/24 10:10 Dose: 500 mg Aspirin (Aspirin 81 Mg Ectab) 81 mg PO [facility] Stop: 06/23/24 20:59 Last Admin: 05/31/24 20:43 Dose: 81 mg Cyanocobalamin (Cyanocobalamin (B-12) 2,500 Mcg Tablet) 2,500 mcg PO [facility] Stop: 06/20/24 20:59 Last Admin: 05/31/24 20:43 Dose: 2,500 mcg Dextrose (Dextrose 50% 50 Ml Syringe) 25 - 50 ml IV UD PRN; Protocol PRN Reason: Hypoglycemia Protocol Stop: 06/20/24 13:16 Digoxin (Digoxin 0.125 Mg Tab) 0.125 mg PO TuThSa@0900 [facility] Stop: 06/23/24 08:59 Last Admin: 05/31/24 09:03 Dose: 0.125 mg Diltiazem HCl (Diltiazem Hcl 120 Mg Capcr) 120 mg PO [facility] Stop: 06/21/24 08:59 Last Admin: 06/01/24 10:11 Dose: 120 mg Diphenhydramine HCl (Diphenhydramine Capsule 25 Mg Cap) 25 mg PO [facility] Stop: 06/20/24 20:59 Last Admin: 05/31/24 20:45 Dose: 25 mg Doxycycline Hyclate (Doxycycline Hyclate 100 Mg Cap) 100 mg PO BID [facility] Stop: 06/01/24 23:59 Last Admin: 06/01/24 10:11 Dose: 100 mg Famotidine (Famotidine 20 Mg Tab) 20 mg PO QAM [facility] Stop: 06/21/24 08:59 Last Admin: 06/01/24 10:11 Dose: 20 mg Furosemide (Furosemide 40 Mg Tab) 40 mg PO QAM [facility] Stop: 06/20/24 12:59 Last Admin: 06/01/24 10:11 Dose: 40 mg Glucagon (Glucagon For Inj 1 Mg Vial) 1 mg SQ UD PRN; Protocol PRN Reason: Hypoglycemia Protocol Stop: 06/20/24 13:16 Glucose (Glucose 40% Gel 15 Gm Tube) 15 - 30 gm PO UD PRN; Protocol PRN Reason: Hypoglycemia Protocol Stop: 06/20/24 13:16 Glucose (Glucose 10 Tab/Tube) 4 - 8 tab PO UD PRN; Protocol PRN Reason: Hypoglycemia Protocol Stop: 06/20/24 13:16 Insulin Aspart (Insulin Aspart Per Unit Charge) 0 units SC ACHS [facility] Stop: 06/20/24 16:29 Last Admin: 06/01/24 17:50 Dose: 11 units Insulin Glargine (Lantus Per Unit Charge) 28 units SC DAILY [facility] Stop: 06/27/24 08:59 Last Admin: 06/01/24 10:09 Dose: 28 units Insulin Glargine (Lantus Per Unit Charge) 10 units SQ HS [facility] Stop: 06/24/24 20:59 Lactic Acid (Ammonium Lactate 12% Lotion 225 Gm Btl) 1 gm EXT BID [facility] Stop: 06/27/24 20:59 Last Admin: 06/01/24 10:10 Dose: 1 gm Menthol (Cough Drop (Sugar Free) Freya 24 Freya/1 Box) 1 freya BUCCAL PRN PRN PRN Reason: Sore Throat Stop: 06/28/24 20:02 Last Admin: 05/29/24 20:20 Dose: 1 freya Metoprolol Succinate (Metoprolol Succ 50mg Ext Rel Tab) [facility] Stop: 06/21/24 08:59 Last Admin: 06/01/24 10:11 Dose: 50 mg Miconazole Nitrate (Miconazole Nitrate Powder 85 Gm) 1 appln EXT BID [facility] Stop: 06/23/24 00:59 Last Admin: 06/01/24 10:11 Dose: 1 appln Miscellaneous Information (Pharmacy Glycemic Mgmt Consult) 1 each N/A UD PRN; Protocol PRN Reason: Consult Stop: 06/23/24 12:33 Multivitamins/Minerals (Cerovite Adv Formula Tab) 1 tab PO BID [facility] Stop: 06/20/24 20:59 Last Admin: 06/01/24 10:12 Dose: 1 tab Nystatin (Nystatin Powder 15gm Btl) 1 appln EXT TID PRN PRN Reason: Other Stop: 06/20/24 12:52 Polyethylene Glycol (Polyethylene (Miralax) 17 Gm Pack) 17 gm PO DAILY [facility] Stop: 06/22/24 09:44 Last Admin: 06/01/24 10:09 Dose: 17 gm Pravastatin Sodium (Pravastatin Sod 40 Mg Tab) 40 mg PO HS [facility] Stop: 06/20/24 20:59 Last Admin: 05/21/24 20:20 Dose: 40 mg Warfarin Sodium (Warfarin Sod 6 Mg Tab) 6 mg PO DAILY@1600 [facility] Stop: 06/28/24 15:59 Last Admin: 05/31/24 17:18 Dose: 6 mg
[2024-06-01] MEDS: LANTUS PER UNIT CHARGE SQ SCH (22:28)
[2024-06-02 08:28] LABS: Hemoglobin 10.7 g/dl (12.0-16.0); Mean Corpuscular Hemoglobin 29.5 pg (25.0-34.0); Mean Corpuscular Hgb Conc 32.4 g/dL (32.0-36.0); Mean Corpuscular Volume 90.9 fL (80.0-100.0); Mean Platelet Volume 10.8 fL (9.4-12.4); Platelet Count 286 K/uL (130-400); RDW Coefficient of Variation 16.4 % (11.5-14.5); RDW Standard Deviation 53.5 fL (36.4-46.3); Red Blood Count 3.63 M/uL (4.20-5.40); White Blood Count 6.68 K/ul (4.8-10.8)
[2024-06-02 08:50] LABS: BUN Creatinine Ratio 32.8 (10-20); Calcium 9.7 mg/dl (8.6-10.3); Creatinine Clr Calc Pharmacy 14.3 ml/min; Magnesium 2.2 mg/dl (1.7-2.4); Phosphorus 5.2 mg/dl (2.5-4.9)
--- NOTE | 2024-06-02 11:51 | Podiatry Progress Note ---
Date of Service June 02, 2024 Assessment & Plan (1) Pressure injury of left heel, unstageable: (2) Stage II pressure ulcer of right heel: Plan Pressure ulcer bilateral heel: -Continue offloading bilateral heel at all times while at rest with either pillows behind calves suspending the heel or in heel offloading boots. -Bilateral heel wound dressing changed. Continue once daily dressing changes with Betadine wet-to-dry dressing to the bilateral heel wound until follow-up in the wound center. Right foot dressing changed to 2 x 2 gauze soaked in Betadine followed by a bordered foam dressing. -Patient encouraged to follow-up with the wound center within 1 month of discharge for reevaluation of bilateral heel wounds. -Okay to continue weightbearing bilateral in hospital socks which she reports is her standard footwear at home. Use walker or other support at all times while weightbearing. -Patient has completed p.o. antibiotics with no current signs of local soft tissue infection of the bilateral heel. Recommend continued close monitoring for any signs of local soft tissue infection and would have a low threshold for reinstituting antibiotics as needed for recurrent cellulitis. Okay for discharge from podiatry standpoint. Thank you for consulting podiatry today in the care of this patient. Admission and Anticipated Discharge Date Admission Date: May 21, 2024 Subjective Patient seen resting comfortably in hospital bed. Bilateral heels are elevated off the mattress with pillow behind the leg and offloading heel boots in place. Denies any new issues over the past 24 hours. Denies pain in the heels. Denies nausea vomiting fever chills. [facility] Patient's daughter updated in person. Physical Exam Physical Exam: Left heel:: Stable eschar centrally at the posterior plantar junction of the heel. Superficial open wound extending laterally on the heel remains superficial with scant serous drainage noted to dressing. No signs of local soft tissue infection. Right heel: Stage II pressure ulcer: Wound is stable in dimensions now with healthy appearing granular base. 1 cm in diameter 0.1 cm in depth. No signs of local soft tissue infection. Results & Data Results & Data Vital Signs (Past 12 Hours) Vital Signs Temp Pulse Pulse Resp BP Pulse Ox O2 Del Method 06/02/24 09:06 90 06/02/24 09:00 90 06/02/24 09:00 20 114/61 94 Room Air 06/02/24 07:13 36.5 C 80 17 132/74 93 Room Air Coding Level of Care Code 75676 SUB INP/OBS CARE 06/25MIN Diagnoses Pressure injury of left heel, unstageable L89.620 Stage II pressure ulcer of right heel L89.612
--- NOTE | 2024-06-02 14:25 | Hospitalist Progress Note ---
Date of Service June 02, 2024 Assessment & Plan (1) Diabetic infection of left foot: (2) Acute renal failure superimposed on stage 3 chronic kidney disease: (3) Pressure injury of left heel, unstageable: (4) Stage II pressure ulcer of right heel: (5) Type 2 diabetes mellitus: (6) Ambulatory dysfunction: (7) Persistent atrial fibrillation: (8) On warfarin therapy: (9) Acute on chronic diastolic (congestive) heart failure: Plan Ms. Lazar is an 89 woman with history of DM, n HF, Afib, htn, DM who was admitted due to infected left pressure ulcer of the heel and diabetic foot ulcer. Patient was evaluated by podiatry who did bedside debridement of left heel on with notable improvement. Patient encouraged to off load. Completed course of oral antibiotics. #Left heel pressure ulcer POA s/p bedside debridement on 05/23 Patient presented to the hospital for evaluation Of wound at her left heel On examination; had black eschar with foul smelling discharge and surrounding necrotic tissue No leukocytosis CT of bilateral lower extremity was done; no underlying drainable collection. Ankle MRI showed a skin defect at the heel region with subcutaneous edema suggesting cellulitis; no suggestion of osteomyelitis. ESR elevated to 120, CRP elevated to 7.83 Superficial wound culture growing MSSA and Enterococcus faecalis Deep wound culture from bedside debridement on 05/23- posit for MSSA On amoxicillin and doxycycline - to finished abx course Per podiatry - -Continue offloading bilateral heel at all times while at rest with either pillows behind calves suspending the heel or in heel offloading boots. - Continue once daily dressing changes with Betadine wet-to-dry dressing to the bilateral heel wound until follow-up in the wound center. - Patient encouraged to follow-up with the wound center within 1 month of discharge for reevaluation of bilateral heel wounds. - Okay to continue weightbearing bilateral in hospital socks which she reports is her standard footwear at home. Use walker or other support at all times while weightbearing. Plan for SNF #[facility] on CKD Baseline creatinine of 2-2.2 Presented with creatinine of 2.8, status post hydration Continuing Lasix. Hold lisinopril Resumed furosemide, d/c on 40mg lasix discontinued fenofibrate - seen by nephrology - Cr been stable ~3 - now Cr 3.4, will hold lasix, cont. to monitor NEPHRO D/C NOTE -d/c on daily lasix 40 mg -hold lisinopril at d/c >fenofibrate contraindicated in CKD 4 and would stop this permanently; defer to PCP and/or cardiology for alternative hypertriglyceride medications in renal failure >bmp weekly at rehab/SNF and contact [facility] nephrology Dr Garcia if concerns >bmp at PCP hospital d/c visit >bmp, cbc/d, ACR, UACM to be ordered by neph nurse and done no more than 72 hr before hospital d/c visit w/ Dr Garcia 3 weeks AFTER rehab/SNF d/c or 6 wks after hospital d/c, whichever is first #Persistent atrial fibrillation Continue on Cardizem digoxin and Coumadin Echocardiogram shows EF of 60 to 65%, left atrium severely dilated #Type 2 diabetes mellitus stop taking oral agents couple of months ago as per PCP instructions Continue on insulin while inpt Follow-up with PCP for long-term management as HbA1c is 9% Discussed about resuming glipizide which she was taking prior to stopping it couple of months ago. 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 Hold lisinopril Full code DVT prophylaxis Coumadin Admission and Anticipated Discharge Date Admission Date: May 21, 2024 Subjective Pt seen in follow up Seen by podiatry - ok to DC Also seen by nephrology for [place] - Dc recs provided and reviewed with the pt Currently laying in bed in NAD, pt's daughter present at the bedside Overall pt feels well Denies any chest pain, shortness of breath, palpitations, abd.pain, n/v Updated pt's PCP - Dr. Lee yesterday - she will follow up on pt's DM needs and other med issues Review of Systems Review of Systems: All systems reviewed & are unremarkable except as noted in Subjective Physical Exam Physical Exam: Constitutional: obese elderly F in NAD HEENT: NC/AT, EOMI, Mucous membranes moist. Lungs: Clear to auscultation, decreased, no wheezes rales or rhonchi CV: regular Abdomen: Soft, nontender, nondistended Extremities: No significant LE edema, dressings on bilateral heels dry and intact Neuro: awake, alert, oriented, answers appropriately, no facial asymmetry, moves extremities Results & Data Results & Data Vital Signs (Past 12 Hours) Vital Signs Temp Pulse Pulse Resp BP Pulse Ox O2 Del Method 06/02/24 09:06 90 06/02/24 09:00 90 06/02/24 09:00 20 114/61 94 Room Air 06/02/24 08:00 Room Air 06/02/24 07:13 36.5 C 80 17 132/74 93 Room Air Laboratory Results 06/02/24 06/02/24 06/02/24 Range/Units 11:36 07:35 07:21 WBC 6.68 (4.8-10.8) K/ul RBC 3.63 L (4.20-5.40) M/uL Hgb 10.7 L (12.0-16.0) g/dl Hct 33.0 L (37.0-47.0) % MCV 90.9 (80.0-100.0) fL MCH 29.5 (25.0-34.0) pg MCHC 32.4 (32.0-36.0) g/dL RDW Std Deviation 53.5 H (36.4-46.3) fL RDW Coeff of Eric 16.4 H (11.5-14.5) % Plt Count 286 (130-400) K/uL MPV 10.8 (9.4-12.4) fL Sodium 135 L (136-145) mmol/L Potassium 5.0 (3.5-5.1) mmol/L Chloride 98 (98-107) mmol/L Carbon Dioxide 26 (21-32) mmol/L Anion Gap 11 (3-11) BUN 113 H D (6-23) mg/dl Creatinine 3.44 H D (0.6-1.2) mg/dl Est Cr Clr Drug Dosing 14.3 ml/min eGFR 12.30 BUN/Creatinine Ratio 32.8 H (10-20) Glucose 87 (70-99(Fasting)) mg/dl POC Glucose 149 H 96 (70-99) mg/dl Calcium 9.7 (8.6-10.3) mg/dl Phosphorus 5.2 H (2.5-4.9) mg/dl Magnesium 2.2 (1.7-2.4) mg/dl 06/01/24 06/01/24 Range/Units 21:40 16:22 WBC (4.8-10.8) K/ul RBC (4.20-5.40) M/uL Hgb (12.0-16.0) g/dl Hct (37.0-47.0) % MCV (80.0-100.0) fL MCH (25.0-34.0) pg MCHC (32.0-36.0) g/dL RDW Std Deviation (36.4-46.3) fL RDW Coeff of Eric (11.5-14.5) % Plt Count (130-400) K/uL MPV (9.4-12.4) fL Sodium (136-145) mmol/L Potassium (3.5-5.1) mmol/L Chloride (98-107) mmol/L Carbon Dioxide (21-32) mmol/L Anion Gap (3-11) BUN (6-23) mg/dl Creatinine (0.6-1.2) mg/dl Est Cr Clr Drug Dosing ml/min eGFR BUN/Creatinine Ratio (10-20) Glucose (70-99(Fasting)) mg/dl POC Glucose 120 H 140 H (70-99) mg/dl Calcium (8.6-10.3) mg/dl Phosphorus (2.5-4.9) mg/dl Magnesium (1.7-2.4) mg/dl Medications Administered Current Inpatient Medications Acetaminophen (Acetaminophen 325 Mg Tab) 650 mg PO Q4H PRN PRN Reason: Pain or Fever Stop: 06/20/24 13:08 Acetaminophen (Acetaminophen 500 Mg Tab) 500 mg PO [facility] Stop: 06/20/24 20:59 Last Admin: 06/01/24 22:27 Dose: 500 mg Allopurinol (Allopurinol 300 Mg Tab) 300 mg PO [facility] Stop: 06/21/24 08:59 Last Admin: 06/02/24 09:01 Dose: 300 mg Aspirin (Aspirin 81 Mg Ectab) 81 mg PO [facility] Stop: 06/23/24 20:59 Last Admin: 06/01/24 22:26 Dose: 81 mg Cyanocobalamin (Cyanocobalamin (B-12) 2,500 Mcg Tablet) 2,500 mcg PO [facility] Stop: 06/20/24 20:59 Last Admin: 06/01/24 22:27 Dose: 2,500 mcg Dextrose (Dextrose 50% 50 Ml Syringe) 25 - 50 ml IV UD PRN; Protocol PRN Reason: Hypoglycemia Protocol Stop: 06/20/24 13:16 Digoxin (Digoxin 0.125 Mg Tab) 0.125 mg PO TuThSa@0900 [facility] Stop: 06/23/24 08:59 Last Admin: 06/02/24 09:06 Dose: 0.125 mg Diltiazem HCl (Diltiazem Hcl 120 Mg Capcr) 120 mg PO QAM [facility] Stop: 06/21/24 08:59 Last Admin: 06/02/24 09:06 Dose: 120 mg Diphenhydramine HCl (Diphenhydramine Capsule 25 Mg Cap) 25 mg PO HS [facility] Stop: 06/20/24 20:59 Last Admin: 06/01/24 22:27 Dose: 25 mg Famotidine (Famotidine 20 Mg Tab) 20 mg PO QAM [facility] Stop: 06/21/24 08:59 Last Admin: 06/02/24 09:06 Dose: 20 mg Furosemide (Furosemide 40 Mg Tab) 40 mg PO QAM [facility] Stop: 06/20/24 12:59 Last Admin: 06/02/24 09:01 Dose: 40 mg Glucagon (Glucagon For Inj 1 Mg Vial) 1 mg SQ UD PRN; Protocol PRN Reason: Hypoglycemia Protocol Stop: 06/20/24 13:16 Glucose (Glucose 40% Gel 15 Gm Tube) 15 - 30 gm PO UD PRN; Protocol PRN Reason: Hypoglycemia Protocol Stop: 06/20/24 13:16 Glucose (Glucose 10 Tab/Tube) 4 - 8 tab PO UD PRN; Protocol PRN Reason: Hypoglycemia Protocol Stop: 06/20/24 13:16 Insulin Aspart (Insulin Aspart Per Unit Charge) 0 units SC ACHS [facility] Stop: 06/20/24 16:29 Last Admin: 06/02/24 17:21 Dose: 9 units Insulin Glargine (Lantus Per Unit Charge) 28 units SC DAILY [facility] Stop: 06/27/24 08:59 Last Admin: 06/02/24 09:10 Dose: 28 units Insulin Glargine (Lantus Per Unit Charge) 10 units SQ HS [facility] Stop: 06/24/24 20:59 Last Admin: 06/01/24 22:28 Dose: 10 units Lactic Acid (Ammonium Lactate 12% Lotion 225 Gm Btl) 1 gm EXT BID [facility] Stop: 06/27/24 20:59 Last Admin: 06/02/24 09:07 Dose: 1 gm Menthol (Cough Drop (Sugar Free) Freya 24 Freya/1 Box) 1 freya BUCCAL PRN PRN PRN Reason: Sore Throat Stop: 06/28/24 20:02 Last Admin: 05/29/24 20:20 Dose: 1 freya Metoprolol Succinate (Metoprolol Succ 50mg Ext Rel Tab) 50 mg PO QAM [facility] Stop: 06/21/24 08:59 Last Admin: 06/02/24 09:01 Dose: 50 mg Miconazole Nitrate (Miconazole Nitrate Powder 85 Gm) 1 appln EXT BID [facility] Stop: 06/23/24 00:59 Last Admin: 06/02/24 09:07 Dose: 1 appln Miscellaneous Information (Pharmacy Glycemic Mgmt Consult) 1 each N/A UD PRN; Protocol PRN Reason: Consult Stop: 06/23/24 12:33 Multivitamins/Minerals (Cerovite Adv Formula Tab) 1 tab PO BID [facility] Stop: 06/20/24 20:59 Last Admin: 06/02/24 09:08 Dose: 1 tab Nystatin (Nystatin Powder 15gm Btl) 1 appln EXT TID PRN PRN Reason: Other Stop: 06/20/24 12:52 Polyethylene Glycol (Polyethylene (Miralax) 17 Gm Pack) 17 gm PO DAILY [facility] Stop: 06/22/24 09:44 Last Admin: 06/02/24 09:17 Dose: 17 gm Pravastatin Sodium (Pravastatin Sod 40 Mg Tab) 40 mg PO HS [facility] Stop: 06/20/24 20:59 Last Admin: 05/21/24 20:20 Dose: 40 mg Warfarin Sodium (Warfarin Sod 6 Mg Tab) 6 mg PO DAILY@1600 [facility] Stop: 06/28/24 15:59 Last Admin: 06/02/24 16:13 Dose: 6 mg
[2024-06-02] MEDS: ACETAMINOPHEN 325 MG TAB PO PRN (22:01)
--- NOTE | 2024-06-03 09:10 | Pharmacy Report ---
Pharmacy Glycemic Short Note 2 - Date of Service June 03, 2024 - Glycemic Short BSG Results (Last 24 hours): 06/02/24 06/02/24 06/02/24 11:36 16:19 20:30 POC Glucose 149 H 163 H 175 H 06/03/24 07:25 POC Glucose 96 OUTPATIENT ANTIDIABETIC REGIMEN: * Previously on glipizide 5 mg BID--> this was stopped outpatient * A1c 9.1% 05/22/24 ASSESSMENT: 06/03 * Patient received a total of 61 units of insulin yesterday (38 were basal and 23 were bolus). * Fasting BSG was 96mg/dL this morning and yesterday morning so the HS lantus dose has been decreased by 20%. * Bolus insulin parameters to remain as ordered--BSG improved yesterday. 05/30 * Angela received 70 units of insulin yesterday (38 were basal) * Fasting BSG this AM slightly below goal range, if continuing to trend low will reduce basal dosing. * No changes to NovoLog at this time, she continues on oral amoxicillin and doxycycline. 05/27 * Patient received a total of 63 units of insulin yesterday (35 units were basal). * Fasting BSG was 188mg/dL this morning, so the scale for HS Lantus has been adjusted (now will received 15 units of Lantus for BSG > 170 instead of > 200, etc) * BSGs were still above goal most of yesterday (235, 170, 174mg/dL), so bolus insulin parameters were tightened again today. The AM Lantus dose was also increased by ~10%. * Renal function slightly better than yesterday (SCr 3.01) and antibiotics changed to doxycycline and amoxicillin for left foot infection. 05/26 * Patient received a total of 60 units of insulin yesterday (35 units were basal) * Fasting BSG was in range this morning so basal insulin will remain the same (Lantus 25 units in the morning and Lantus scale at bedtime -0-15 units depending on BSG) * BSGs were above goal most of yesterday so CR was tightened yesterday. BSG reese to 235mg/dL at lunch today so CR tightened again today. * Patient with worsening renal function (SCr 3.13 today--baseline SCr is 2-1.2) and continues on daptomycin for and infection of the left foot. 05/24 * Patient is admitted with left heel wound, TREMANYE on CKD --> SCr trending upward * Fasting 182-210 mg/dL the past three days- will initiate lantus using adjusted body weight stress of 1- 2 * Patient previously reported adequate control on glipizide per diabetes education note, will trial tightened parameters as previous has resulted in prandial BSGs in the 200s PLAN FOR INPATIENT GLYCEMIC CONTROL: * Hold outpatient oral diabetes medications * Basal insulin * Lantus 28 units SQ QAM and 8 units QPM * Bolus insulin * NovoLog per scale ACHS or Q6hrs while NPO * Goal Range: Low 120 mg/dL - High 150 mg/dL * Correction Factor: 25 mg/dL/unit * Nutritional / Prandial insulin per carb ratio of 1 unit per 6 grams CHO consumed
[2024-06-03 09:43] LABS: Hematocrit (blood only) 31.9 % (37.0-47.0); Hemoglobin 10.1 g/dl (12.0-16.0); Mean Corpuscular Hemoglobin 28.7 pg (25.0-34.0); Mean Corpuscular Hgb Conc 31.7 g/dL (32.0-36.0); Mean Corpuscular Volume 90.6 fL (80.0-100.0); Mean Platelet Volume 10.6 fL (9.4-12.4); Platelet Count 274 K/uL (130-400); RDW Coefficient of Variation 16.9 % (11.5-14.5); Red Blood Count 3.52 M/uL (4.20-5.40); White Blood Count 7.04 K/ul (4.8-10.8)
[2024-06-03 09:55] LABS: BUN Creatinine Ratio 33.2 (10-20); Calcium 9.9 mg/dl (8.6-10.3); Creatinine Clr Calc Pharmacy 13.9 ml/min; Magnesium 2.4 mg/dl (1.7-2.4); Phosphorus 5.6 mg/dl (2.5-4.9)
--- NOTE | 2024-06-03 12:53 | Hospitalist Progress Note ---
Date of Service June 03, 2024 Assessment & Plan (1) Diabetic infection of left foot: (2) Acute renal failure superimposed on stage 3 chronic kidney disease: (3) Pressure injury of left heel, unstageable: (4) Stage II pressure ulcer of right heel: (5) Type 2 diabetes mellitus: (6) Ambulatory dysfunction: (7) Persistent atrial fibrillation: (8) On warfarin therapy: (9) Acute on chronic diastolic (congestive) heart failure: Plan Ms. Lazar is an 89 woman with history of DM, n HF, Afib, htn, DM who was admitted due to infected left pressure ulcer of the heel and diabetic foot ulcer. Patient was evaluated by podiatry who did bedside debridement of left heel on with notable improvement. Patient encouraged to off load. Completed course of oral antibiotics. #Left heel pressure ulcer POA s/p bedside debridement on 05/23 Patient presented to the hospital for evaluation Of wound at her left heel On examination; had black eschar with foul smelling discharge and surrounding necrotic tissue No leukocytosis CT of bilateral lower extremity was done; no underlying drainable collection. Ankle MRI showed a skin defect at the heel region with subcutaneous edema suggesting cellulitis; no suggestion of osteomyelitis. ESR elevated to 120, CRP elevated to 7.83 Superficial wound culture growing MSSA and Enterococcus faecalis Deep wound culture from bedside debridement on 05/23- posit for MSSA On amoxicillin and doxycycline - to finished abx course Per podiatry - -Continue offloading bilateral heel at all times while at rest with either pillows behind calves suspending the heel or in heel offloading boots. - Continue once daily dressing changes with Betadine wet-to-dry dressing to the bilateral heel wound until follow-up in the wound center. - Patient encouraged to follow-up with the wound center within 1 month of discharge for reevaluation of bilateral heel wounds. - Okay to continue weightbearing bilateral in hospital socks which she reports is her standard footwear at home. Use walker or other support at all times while weightbearing. Plan for SNF #TREMAYNE on CKD Baseline creatinine of 2-2.2 Presented with creatinine of 2.8, status post hydration Continuing Lasix. Hold lisinopril Resumed furosemide, d/c on 40mg lasix discontinued fenofibrate - seen by nephrology - Cr been stable ~3 - now Cr 3.5, will hold lasix, cont. to monitor - nephrology aware NEPHRO D/C NOTE -d/c on daily lasix 40 mg -hold lisinopril at d/c >fenofibrate contraindicated in CKD 4 and would stop this permanently; defer to PCP and/or cardiology for alternative hypertriglyceride medications in renal failure >bmp weekly [facility] if concerns >bmp at PCP hospital d/c visit >bmp, cbc/d, ACR, UACM to be ordered by neph nurse and done no more than 72 hr before hospital d/c visit w/ Dr Garcia 3 weeks AFTER rehab/SNF d/c or 6 wks after hospital d/c, whichever is first #Persistent atrial fibrillation Continue on Cardizem digoxin and Coumadin Echocardiogram shows EF of 60 to 65%, left atrium severely dilated #Type 2 diabetes mellitus stop taking oral agents couple of months ago as per PCP instructions Continue on insulin while inpt Follow-up with PCP for long-term management as HbA1c is 9% Discussed about resuming glipizide which she was taking prior to stopping it couple of months ago. 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 Hold lisinopril Full code DVT prophylaxis Coumadin Admission and Anticipated Discharge Date Admission Date: May 21, 2024 Subjective Pt seen in follow up Seen by podiatry - ok to DC Also seen by nephrology for Tremayne - Dc recs provided and reviewed with the pt. However Cr up at 3.5 - discussed w/ nephrology - will see pt again Currently laying in bed in NAD, pt's daughter present at the bedside Overall pt feels well. Reports R thigh pain - describes as muscle pain , reports tylenol helped. Denies any chest pain, shortness of breath, palpitations, abd.pain, n/v Updated pt's PCP - Dr. Lee earlier - she will follow up on pt's DM needs and other med issues Review of Systems Review of Systems: All systems reviewed & are unremarkable except as noted in Subjective Physical Exam Physical Exam: Constitutional: obese elderly F in NAD HEENT: NC/AT, EOMI, Mucous membranes moist. Lungs: Clear to auscultation, decreased, no wheezes rales or rhonchi CV: regular Abdomen: Soft, nontender, nondistended Extremities: No significant LE edema, dressings on bilateral heels dry and intact Neuro: awake, alert, oriented, answers appropriately, no facial asymmetry, moves extremities Results & Data Results & Data Vital Signs (Past 12 Hours) Vital Signs Temp Pulse Resp BP Pulse Ox O2 Del Method 06/03/24 08:00 36.6 C 76 18 137/81 95 Room Air 06/03/24 07:40 Room Air 06/03/24 07:12 37.0 C 68 17 140/72 94 Room Air Laboratory Results 06/03/24 06/03/24 06/03/24 Range/Units 11:40 09:06 07:25 WBC 7.04 (4.8-10.8) K/ul RBC 3.52 L (4.20-5.40) M/uL Hgb 10.1 L (12.0-16.0) g/dl Hct 31.9 L (37.0-47.0) % MCV 90.6 (80.0-100.0) fL MCH 28.7 (25.0-34.0) pg MCHC 31.7 L (32.0-36.0) g/dL RDW Std Deviation 54.0 H (36.4-46.3) fL RDW Coeff of Eric 16.9 H (11.5-14.5) % Plt Count 274 (130-400) K/uL MPV 10.6 (9.4-12.4) fL Sodium 135 L (136-145) mmol/L Potassium 5.0 (3.5-5.1) mmol/L Chloride 99 (98-107) mmol/L Carbon Dioxide 26 (21-32) mmol/L Anion Gap 10 (3-11) BUN 118 H (6-23) mg/dl Creatinine 3.55 H (0.6-1.2) mg/dl Est Cr Clr Drug Dosing 13.9 ml/min eGFR 11.85 BUN/Creatinine Ratio 33.2 H (10-20) Glucose 155 H (70-99(Fasting)) mg/dl POC Glucose 174 H 96 (70-99) mg/dl Calcium 9.9 (8.6-10.3) mg/dl Phosphorus 5.6 H (2.5-4.9) mg/dl Magnesium 2.4 (1.7-2.4) mg/dl 06/02/24 06/02/24 Range/Units 20:30 16:19 WBC (4.8-10.8) K/ul RBC (4.20-5.40) M/uL Hgb (12.0-16.0) g/dl Hct (37.0-47.0) % MCV (80.0-100.0) fL MCH (25.0-34.0) pg MCHC (32.0-36.0) g/dL RDW Std Deviation (36.4-46.3) fL RDW Coeff of Eric (11.5-14.5) % Plt Count (130-400) K/uL MPV (9.4-12.4) fL Sodium (136-145) mmol/L Potassium (3.5-5.1) mmol/L Chloride (98-107) mmol/L Carbon Dioxide (21-32) mmol/L Anion Gap (3-11) BUN (6-23) mg/dl Creatinine (0.6-1.2) mg/dl Est Cr Clr Drug Dosing ml/min eGFR BUN/Creatinine Ratio (10-20) Glucose (70-99(Fasting)) mg/dl POC Glucose 175 H 163 H (70-99) mg/dl Calcium (8.6-10.3) mg/dl Phosphorus (2.5-4.9) mg/dl Magnesium (1.7-2.4) mg/dl Medications Administered Current Inpatient Medications Acetaminophen (Acetaminophen 325 Mg Tab) 650 mg PO Q4H PRN PRN Reason: Pain or Fever Stop: 06/20/24 13:08 Last Admin: 06/03/24 12:03 Dose: 650 mg Acetaminophen (Acetaminophen 500 Mg Tab) 500 mg PO [facility] Stop: 06/20/24 20:59 Last Admin: 06/02/24 20:49 Dose: 500 mg Allopurinol ([facility]op[facility]ol 300 Mg Tab) [facility] [place] Stop: 06/21/24 08:59 Last Admin: 06/03/24 08:18 Dose: 300 mg Aspirin (Aspirin 81 Mg Ectab) 81 mg PO [facility] Stop: 06/23/24 20:59 Last Admin: 06/02/24 20:51 Dose: 81 mg Cyanocobalamin (Cyanocobalamin (B-12) 2,500 Mcg Tablet) 2,500 mcg PO [facility] Stop: 06/20/24 20:59 Last Admin: 06/02/24 20:51 Dose: 2,500 mcg Dextrose (Dextrose 50% 50 Ml Syringe) 25 - 50 ml IV UD PRN; Protocol PRN Reason: Hypoglycemia Protocol Stop: 06/20/24 13:16 Digoxin (Digoxin 0.125 Mg Tab) 0.125 mg PO TuThSa@0900 [facility] Stop: 06/23/24 08:59 Last Admin: 06/02/24 09:06 Dose: 0.125 mg Diltiazem HCl (Diltiazem Hcl 120 Mg Capcr) 120 [facility] [place] Stop: 06/21/24 08:59 Last Admin: 06/03/24 08:18 Dose: 120 mg Diphenhydramine HCl (Diphenhydramine Capsule 25 Mg Cap) 25 mg PO [facility] Stop: 06/20/24 20:59 Last Admin: 06/02/24 20:51 Dose: 25 mg Famotidine (Famotidine 20 Mg Tab) 20 [facility] [place] Stop: 06/21/24 08:59 Last Admin: 06/03/24 08:17 Dose: 20 mg Furosemide (Furosemide 40 Mg Tab) 40 mg PO QAM [facility] Stop: 06/20/24 12:59 Last Admin: 06/02/24 09:01 Dose: 40 mg Glucagon (Glucagon For Inj 1 Mg Vial) 1 mg SQ UD PRN; Protocol PRN Reason: Hypoglycemia Protocol Stop: 06/20/24 13:16 Glucose (Glucose 40% Gel 15 Gm Tube) 15 - 30 gm PO UD PRN; Protocol PRN Reason: Hypoglycemia Protocol Stop: 06/20/24 13:16 Glucose (Glucose 10 Tab/Tube) 4 - 8 tab PO UD PRN; Protocol PRN Reason: Hypoglycemia Protocol Stop: 06/20/24 13:16 Insulin Aspart (Insulin Aspart Per Unit Charge) 0 units SC ACHS [facility] Stop: 06/20/24 16:29 Last Admin: 06/03/24 12:30 Dose: 11 units Insulin Glargine (Lantus Per Unit Charge) 28 units SC DAILY [facility] Stop: 06/27/24 08:59 Last Admin: 06/03/24 08:34 Dose: 28 units Insulin Glargine (Lantus Per Unit Charge) 8 units SQ [facility] Stop: 07/03/24 20:59 Lactic Acid (Ammonium Lactate 12% Lotion 225 Gm Btl) 1 gm EXT BID [facility] Stop: 06/27/24 20:59 Last Admin: 06/03/24 08:17 Dose: 1 gm Menthol (Cough Drop (Sugar Free) Freya 24 Freya/1 Box) 1 freya BUCCAL PRN PRN PRN Reason: Sore Throat Stop: 06/28/24 20:02 Last Admin: 05/29/24 20:20 Dose: 1 freya Metoprolol Succinate (Metoprolol Succ 50mg Ext Rel Tab) 50 mg PO QAM [facility] Stop: 06/21/24 08:59 Last Admin: 06/03/24 08:20 Dose: 50 mg Miconazole Nitrate (Miconazole Nitrate Powder 85 Gm) 1 appln EXT BID [facility] Stop: 06/23/24 00:59 Last Admin: 06/03/24 08:17 Dose: 1 appln Miscellaneous Information (Pharmacy Glycemic Mgmt Consult) 1 each N/A UD PRN; Protocol PRN Reason: Consult Stop: 06/23/24 12:33 Multivitamins/Minerals (Cerovite Adv Formula Tab) 1 tab PO BID [facility] Stop: 06/20/24 20:59 Last Admin: 06/03/24 08:18 Dose: 1 tab Nystatin (Nystatin Powder 15gm Btl) 1 appln EXT TID PRN PRN Reason: Other Stop: 06/20/24 12:52 Polyethylene Glycol (Polyethylene (Miralax) 17 Gm Pack) 17 gm PO DAILY [facility] Stop: 06/22/24 09:44 Last Admin: 06/03/24 08:17 Dose: 17 gm Pravastatin Sodium (Pravastatin Sod 40 Mg Tab) 40 mg PO HS [facility] Stop: 06/20/24 20:59 Last Admin: 05/21/24 20:20 Dose: 40 mg Warfarin Sodium (Warfarin Sod 6 Mg Tab) 6 mg PO DAILY@1600 [facility] Stop: 06/28/24 15:59 Last Admin: 06/02/24 16:13 Dose: 6 mg
--- NOTE | 2024-06-03 15:14 | Podiatry Progress Note ---
Date of Service June 03, 2024 Assessment & Plan (1) Stage II pressure ulcer of right heel: (2) Pressure injury of left heel, unstageable: Plan -Continue offloading bilateral heel at all times while at rest with either pillows behind calves suspending the heel or in heel offloading boots. -Bilateral heel wound dressing changed. Continue once daily dressing changes with Betadine wet-to-dry dressing to the bilateral heel wound until follow-up in the wound center. Right foot dressing changed to 2 x 2 gauze soaked in Betadine followed by a bordered foam dressing. Avoid any occlusive dressing to the right heel wound. Please dress with only gauze and gauze roll after Betadine soaked dressing. -Okay to continue weightbearing bilateral in hospital socks which she reports is her standard footwear at home. Use walker or other support at all times while weightbearing. -Patient has completed p.o. antibiotics with no current signs of local soft tissue infection of the bilateral heel. Recommend continued close monitoring for any signs of local soft tissue infection and would have a low threshold for reinstituting antibiotics as needed for recurrent cellulitis. -Communication placed with wound center to ask for patient to be scheduled some time at the end of the month for follow-up evaluation. -Patient is now awaiting placement [facility] [place] [facility]. No changes in treatment plan. Okay for discharge from podiatry standpoint. Thank you for consulting podiatry today in the care of this patient. Admission and Anticipated Discharge Date Admission Date: May 21, 2024 Subjective Patient seen resting comfortably in hospital bed with daughter present at bedside. Reports increased right hip pain over the last 24 hours which was aggravating to the point that she was unable to participate in physical therapy today. Denies any injury to the right hip and feels that she may have aggrav ated during the previous days physical therapy exercises however she did not notice any discomfort until last night. Denies any pain in the bilateral foot. Denies nausea vomiting fever chills. Feet are elevated with pillow behind the right leg and heel offloading boots in place. Review of Systems Review of Systems: New onset right hip pain well-controlled with p.o. Tylenol. Negative unless noted in subjective portion of note. Physical Exam Physical Exam: Left heel: Unstageable pressure ulcer: Central eschar remains stable and intact. No signs of local soft tissue infection. No periwound erythema edema lymphangitis or streaking. No malodor. Scant serous drainage to the dressing noted. Mild maceration under border foam dressing despite application of Betadine and gauze prior to application of bordered foam. Recommend avoiding any bordered foam or occlusive type dressing over this wound. Right heel: Stage II pressure ulcer: Posterior lateral heel. Wound measures stable in dimensions with healthy granular wound bed. No signs of local soft tissue infection. Scant drainage limited to the borders of the wound noted on dressing. No active drainage. No malodor. Results & Data Results & Data Vital Signs (Past 12 Hours) Vital Signs Temp Pulse Resp BP Pulse Ox O2 Del Method 06/03/24 14:11 36.4 C L 72 16 122/73 93 Room Air 06/03/24 08:00 36.6 C 76 18 137/81 95 Room Air 06/03/24 07:40 Room Air 06/03/24 07:12 37.0 C 68 17 140/72 94 Room Air Coding Level of Care Code 22801 SUB INP/OBS CARE 06/25MIN Diagnoses Stage II pressure ulcer of right heel L89.612 Pressure injury of left heel, unstageable L89.620
[2024-06-03] MEDS: LANTUS PER UNIT CHARGE SQ SCH (20:37)
[2024-06-04 08:04] LABS: INR 3.2 (0.9-1.1); Prothrombin Time 31.3 Seconds (9.0-12.0)
[2024-06-04 08:42] LABS: BUN Creatinine Ratio 35.1 (10-20); Creatinine Clr Calc Pharmacy 14.3 ml/min; Magnesium 2.6 mg/dl (1.7-2.4); Phosphorus 5.3 mg/dl (2.5-4.9); Potassium 5.3 mmol/L (3.5-5.1)
--- NOTE | 2024-06-04 10:38 | Hospitalist Progress Note ---
Date of Service June 04, 2024 Assessment & Plan (1) Diabetic infection of left foot: (2) Acute renal failure superimposed on stage 3 chronic kidney disease: (3) Pressure injury of left heel, unstageable: (4) Stage II pressure ulcer of right heel: (5) Type 2 diabetes mellitus: (6) Ambulatory dysfunction: (7) Persistent atrial fibrillation: (8) On warfarin therapy: (9) Acute on chronic diastolic (congestive) heart failure: Plan Ms. Lazar is an 89 woman with history of DM, n HF, Afib, htn, DM who was admitted due to infected left pressure ulcer of the heel and diabetic foot ulcer. Patient was evaluated by podiatry who did bedside debridement of left heel on with notable improvement. Patient encouraged to off load. Completed course of oral antibiotics. #Left heel pressure ulcer POA s/p bedside debridement on 05/23 Patient presented to the hospital for evaluation Of wound at her left heel On examination; had black eschar with foul smelling discharge and surrounding necrotic tissue No leukocytosis CT of bilateral lower extremity was done; no underlying drainable collection. Ankle MRI showed a skin defect at the heel region with subcutaneous edema suggesting cellulitis; no suggestion of osteomyelitis. ESR elevated to 120, CRP elevated to 7.83 Superficial wound culture growing MSSA and Enterococcus faecalis Deep wound culture from bedside debridement on 05/23- posit for MSSA On amoxicillin and doxycycline - finished abx course Per podiatry - -Continue offloading bilateral heel at all times while at rest with either pillows behind calves suspending the heel or in heel offloading boots. - Continue once daily dressing changes with Betadine wet-to-dry dressing to the bilateral heel wound until follow-up in the wound center. - Patient encouraged to follow-up with the wound center within 1 month of discharge for reevaluation of bilateral heel wounds. - Okay to continue weightbearing bilateral in hospital socks which she reports is her standard footwear at home. Use walker or other support at all times while weightbearing. Plan for SNF #TREMAYNE on CKD Baseline creatinine of 2-2.2 Presented with creatinine of 2.8, status post hydration Continuing Lasix. Hold lisinopril Resumed furosemide, d/c on 40mg lasix discontinued fenofibrate - seen by nephrology - Cr was stable ~3 - now Cr 3.5, will hold lasix, cont. to monitor - nephrology aware, will cont. to follow up on pt NEPHRO D/C NOTE -d/c on daily lasix 40 mg -hold lisinopril at d/c >fenofibrate contraindicated in CKD 4 and would stop this permanently; defer to PCP and/or cardiology for alternative hypertriglyceride medications in renal failure >bmp weekly at rehab/SNF and contact [facility] nephrology Dr Garcia if concerns >bmp at PCP hospital d/c visit >bmp, cbc/d, ACR, UACM to be ordered by neph nurse and done no more than 72 hr before hospital d/c visit w/ Dr Garcia 3 weeks AFTER rehab/SNF d/c or 6 wks a [facility] d/c, whichever is first #Persistent atrial fibrillation Continue on Cardizem digoxin and Coumadin Echocardiogram shows EF of 60 to 65%, left atrium severely dilated #Type 2 diabetes mellitus stop taking oral agents couple of months ago as per PCP instructions Continue on insulin while inpt Follow-up with PCP for long-term management as HbA1c is 9% Discussed about resuming glipizide which she was taking prior to stopping it couple of months ago. family educator also consulted PCP updated #Hyperlipidemia- hold pravastatin while patient is on daptomycin #Goutcontinue on allopurinol #Hypertensioncontinue on metoprolol. Hold lisinopril Full code DVT prophylaxis Coumadin Admission and Anticipated Discharge Date Admission Date: May 21, 2024 Subjective Pt seen in follow up Seen by podiatry Also seen by nephrology for TREMAYNE on CKD - Dc recs provided and reviewed with the pt. However Cr up at 3.5 , BUN also elevated - discussed w/ nephrology - will see pt again Currently laying in bed in NAD Overall pt feels well. Denies any chest pain, shortness of breath, palpitations, abd.pain, n/v Eating well, had BM. Urinating ok Updated pt's PCP - Dr. Lee earlier - she will follow up on pt's DM needs and other med issues Review of Systems Review of Systems: All systems reviewed & are unremarkable except as noted in Subjective Physical Exam Physical Exam: Constitutional: obese elderly F in NAD HEENT: NC/AT, EOMI, Mucous membranes moist. Lungs: Clear to auscultation, decreased, no wheezes rales or rhonchi CV: regular Abdomen: Soft, nontender, nondistended Extremities: No significant LE edema, dressings on bilateral heels dry and intact Neuro: awake, alert, oriented, answers appropriately, no facial asymmetry, moves extremities Results & Data Results & Data Vital Signs (Past 12 Hours) Vital Signs Temp Pulse Pulse Resp BP Pulse Ox O2 Del Method 06/04/24 08:33 82 06/04/24 07:30 36.3 C L 84 20 129/75 97 Room Air Laboratory Results 06/04/24 06/04/24 06/04/24 Range/Units 08:18 07:08 07:02 PT 31.3 H (9.0-12.0) Seconds INR 3.2 H (0.9-1.1) Sodium 135 L (136-145) mmol/L Potassium 5.3 H (3.5-5.1) mmol/L Chloride 100 (98-107) mmol/L Carbon Dioxide 27 (21-32) mmol/L Anion Gap 8 (3-11) BUN 121 H (6-23) mg/dl Creatinine 3.45 H (0.6-1.2) mg/dl Est Cr Clr Drug Dosing 14.3 ml/min eGFR 12.26 BUN/Creatinine Ratio 35.1 H (10-20) Glucose 104 H (70-99(Fasting)) mg/dl POC Glucose 114 H (70-99) mg/dl Calcium 10.0 (8.6-10.3) mg/dl Phosphorus 5.3 H (2.5-4.9) mg/dl Magnesium 2.6 H (1.7-2.4) mg/dl 06/03/24 06/03/24 06/03/24 Range/Units 20:11 16:24 11:40 PT (9.0-12.0) Seconds INR (0.9-1.1) Sodium (136-145) mmol/L Potassium (3.5-5.1) mmol/L Chloride (98-107) mmol/L Carbon Dioxide (21-32) mmol/L Anion Gap (3-11) BUN (6-23) mg/dl Creatinine (0.6-1.2) mg/dl Est Cr Clr Drug Dosing ml/min eGFR BUN/Creatinine Ratio (10-20) Glucose (70-99(Fasting)) mg/dl POC Glucose 159 H 178 H 174 H (70-99) mg/dl Calcium (8.6-10.3) mg/dl Phosphorus (2.5-4.9) mg/dl Magnesium (1.7-2.4) mg/dl Medications Administered Current Inpatient Medications Acetaminophen (Acetaminophen 325 Mg Tab) 650 mg PO Q4H PRN PRN Reason: Pain or Fever Stop: 06/20/24 13:08 Last Admin: 06/03/24 12:03 Dose: 650 mg Acetaminophen (Acetaminophen 500 Mg Tab) 500 mg PO [facility] Stop: 06/20/24 20:59 Last Admin: 06/03/24 20:36 Dose: 500 mg Allopurinol (Allopurinol 300 Mg Tab) 300 mg PO [facility] Stop: 06/21/24 08:59 Last Admin: 06/04/24 08:33 Dose: 300 mg Aspirin (Aspirin 81 Mg Ectab) 81 mg PO [facility] Stop: 06/23/24 20:59 Last Admin: 06/03/24 20:38 Dose: 81 mg Cyanocobalamin (Cyanocobalamin (B-12) 2,500 Mcg Tablet) 2,500 mcg PO [facility] Stop: 06/20/24 20:59 Last Admin: 06/03/24 20:38 Dose: 2,500 mcg Dextrose (Dextrose 50% 50 Ml Syringe) 25 - 50 ml IV UD PRN; Protocol PRN Reason: Hypoglycemia Protocol Stop: 06/20/24 13:16 Digoxin (Digoxin 0.125 Mg Tab) 0.125 mg PO TuThSa@0900 [facility] Stop: 06/23/24 08:59 Last Admin: 06/04/24 08:33 Dose: 0.125 mg Diltiazem HCl (Diltiazem Hcl 120 Mg Capcr) 120 mg PO [facility] Stop: 06/21/24 08:59 Last Admin: 06/04/24 08:33 Dose: 120 mg Diphenhydramine HCl (Diphenhydramine Capsule 25 Mg Cap) 25 mg PO [facility] Stop: 06/20/24 20:59 Last Admin: 06/03/24 20:37 Dose: 25 mg Famotidine (Famotidine 20 Mg Tab) 20 mg PO [facility] Stop: 06/21/24 08:59 Last Admin: 06/04/24 08:35 Dose: 20 mg Furosemide (Furosemide 40 Mg Tab) 40 mg PO [facility] Stop: 06/20/24 12:59 Last Admin: 06/02/24 09:01 Dose: 40 mg Glucagon (Glucagon For Inj 1 Mg Vial) 1 mg SQ UD PRN; Protocol PRN Reason: Hypoglycemia Protocol Stop: 06/20/24 13:16 Glucose (Glucose 40% Gel 15 Gm Tube) 15 - 30 gm PO UD PRN; Protocol PRN Reason: Hypoglycemia Protocol Stop: 06/20/24 13:16 Glucose (Glucose 10 Tab/Tube) 4 - 8 tab PO UD PRN; Protocol PRN Reason: Hypoglycemia Protocol Stop: 06/20/24 13:16 Insulin Aspart (Insulin Aspart Per Unit Charge) 0 units SC ACHS [facility] Stop: 06/20/24 16:29 Last Admin: 06/04/24 08:35 Dose: 8 units Insulin Glargine (Lantus Per Unit Charge) 28 units SC DAILY [facility] Stop: 06/27/24 08:59 Last Admin: 06/04/24 08:35 Dose: 28 units Insulin Glargine (Lantus Per Unit Charge) 8 units SQ HS [facility] Stop: 07/03/24 20:59 Last Admin: 06/03/24 20:37 Dose: 8 units Lactic Acid (Ammonium Lactate 12% Lotion 225 Gm Btl) 1 gm EXT BID [facility] Stop: 06/27/24 20:59 Last Admin: 06/04/24 09:19 Dose: 1 gm Menthol (Cough Drop (Sugar Free) Freya 24 Freya/1 Box) 1 freya BUCCAL PRN PRN PRN Reason: Sore Throat Stop: 06/28/24 20:02 Last Admin: 05/29/24 20:20 Dose: 1 freya Metoprolol Succinate (Metoprolol Succ 50mg Ext Rel Tab) 50 mg PO QAM [facility] Stop: 06/21/24 08:59 Last Admin: 06/04/24 08:33 Dose: 50 mg Miconazole Nitrate (Miconazole Nitrate Powder 85 Gm) 1 appln EXT BID [facility] Stop: 06/23/24 00:59 Last Admin: 06/04/24 09:14 Dose: 1 appln Miscellaneous Information (Pharmacy Glycemic Mgmt Consult) 1 each N/A UD PRN; Protocol PRN Reason: Consult Stop: 06/23/24 12:33 Multivitamins/Minerals (Cerovite Adv Formula Tab) 1 tab PO BID [facility] Stop: 06/20/24 20:59 Last Admin: 06/04/24 08:33 Dose: 1 tab Nystatin (Nystatin Powder 15gm Btl) 1 appln EXT TID PRN PRN Reason: Other Stop: 06/20/24 12:52 Polyethylene Glycol (Polyethylene (Miralax) 17 Gm Pack) 17 gm PO DAILY [facility] Stop: 06/22/24 09:44 Last Admin: 06/04/24 08:46 Dose: 17 gm Pravastatin Sodium (Pravastatin Sod 40 Mg Tab) 40 mg PO HS [facility] Stop: 06/20/24 20:59 Last Admin: 05/21/24 20:20 Dose: 40 mg Warfarin Sodium (Warfarin Sod 6 Mg Tab) 6 mg PO DAILY@1600 [facility] Stop: 06/28/24 15:59 Last Admin: 06/03/24 16:04 Dose: 6 mg
--- NOTE | 2024-06-04 11:46 | Nephrology Progress Note ---
Date of Service June 04, 2024 Assessment & Plan Admission and Anticipated Discharge Date Admission Date: May 21, 2024 Subjective Assessment & Plan (1) Acute renal failure superimposed on stage 4 chronic kidney disease: Plan: Stage one improving nonoliguric TREMAYNE on CKD 4. Baseline creatinine 2 as of September 2023 w/ 1.5 gm proteinuria. presented 05/21 w/ L diabetic foot infection and creatinine 2.8, reached karen of 2.4 on 05/22, then back to 2.9 as of 05/24 and plateau'd at about 3 for some time but now rising again and is 3.5 now. Also BUN is rising and is upto 121 now. K also borderline high at 5.3. Calling this TREMAYNE for now in setting of infection; quite possible however that this is CKD progression. with her obesity hard to assess fluid status. Rec: 1. Cxr x 1 view to assess for CHF. 2 Lokelma 10 gm for high K. 3 Give benefit of doubt and use NS at 80 ml/hr for 1500 ml . 4 daily bmp -strict I/O to continue -no indication for acute dialysis at this moment. Also she categorically says she will never do dialysis which is a good decision. Volume status, impression of causes of worsening renal function, recommendations reviewed w/ Dr Felix via phone; we are in agreement. Subjective Patient feels fine. denies N,v, CP, SOB. However labs keep getting worse rising BUN and Creat. making urine. Review of Systems Review of Systems: All systems reviewed & are unremarkable except as noted in Subjective Physical Exam Constitutional: well developed, well nourished, + frail appearing and cooperative; no acute distress Eyes: EOM intact bilaterally ENMT: Mouth: + dry oral mucous membranes Neck: no nuchal rigidity Respiratory: normal respiratory effort Auscultation: + diminished lung sounds (narayan BL bases) Cardiovascular: Rate/Rhythm: regular rate and regular rhythm Heart Sounds: + murmur Extremities: no edema Gastrointestinal (Abdomen): Inspection/Auscultation: normal bowel sounds Percussion/Palpation: abdomen soft; abdomen nontender Musculoskeletal: Extremities: strength 5/5 throughout Skin: no rashes, warm and dry Psychiatric: Orientation: alert and oriented x 3 Speech: normal rat e/rhythm/volume of speech Results & Data Vital Signs (Past 12 Hours) Vital Signs Temp Pulse Pulse Resp BP Pulse Ox O2 Del Method 06/04/24 08:33 82 06/04/24 07:30 36.3 C L 84 20 129/75 97 Room Air
[2024-06-04] MEDS: SODIUM CHLORIDE 0.9% 1,000 ML IV SCH (13:02)
--- NOTE | 2024-06-04 13:17 | XRay Report ---
XR chest 1V portable CLINICAL HISTORY: edema and to assess CHF COMPARISON STUDY: No previous studies for comparison. FINDINGS: Lung volumes are normal. There is no pneumothorax or pleural effusion. The heart is moderat pamela enlarged. There is no radiographic evidence for pulmonary edema. Mild left midlung opacities favo r atelectasis. Focal contour abnormality of the mid descending thoracic aorta is present. IMPRESSION: 1. No acute cardiopulmonary findings. 2. Moderate cardiomegaly. No radiographic evidence for pulmonary edema. 3. Focal contour abnormality of the mid descending thoracic aorta. This could be due to an aneurysm o r tortuosity. CTA of the chest could be obtained for further evaluation. 4. Linear left midlung densities suggestive atelectasis. ACT 112: Negative or not required by law. Electronically signed by: Paul Emerson M.D. 06/04/2024 1:15 PM
[2024-06-04] MEDS: SODIUM ZIRCONIUM CYCLOSILICATE 10 GM PACKET PO SCH (13:44)
[2024-06-05 07:57] LABS: Calcium 9.5 mg/dl (8.6-10.3); Magnesium 2.7 mg/dl (1.7-2.4); Potassium 4.9 mmol/L (3.5-5.1)
[2024-06-05 08:03] LABS: BUN Creatinine Ratio 37.8 (10-20); Creatinine Clr Calc Pharmacy 16.8 ml/min; Phosphorus 5.4 mg/dl (2.5-4.9)
--- NOTE | 2024-06-05 09:21 | Hospitalist Progress Note ---
Date of Service June 05, 2024 Assessment & Plan (1) Diabetic infection of left foot: (2) Acute renal failure superimposed on stage 3 chronic kidney disease: (3) Pressure injury of left heel, unstageable: (4) Stage II pressure ulcer of right heel: (5) Type 2 diabetes mellitus: (6) Ambulatory dysfunction: (7) Persistent atrial fibrillation: (8) On warfarin therapy: (9) Acute on chronic diastolic (congestive) heart failure: Plan Ms. Lazar is an 89 woman with history of DM, n HF, Afib, htn, DM who was admitted due to infected left pressure ulcer of the heel and diabetic foot ulcer. Patient was evaluated by podiatry who did bedside debridement of left heel on with notable improvement. Patient encouraged to off load. Completed course of oral antibiotics. #Left heel pressure ulcer POA s/p bedside debridement on 05/23 Patient presented to the hospital for evaluation Of wound at her left heel On examination; had black eschar with foul smelling discharge and surrounding necrotic tissue No leukocytosis CT of bilateral lower extremity was done; no underlying drainable collection. Ankle MRI showed a skin defect at the heel region with subcutaneous edema suggesting cellulitis; no suggestion of osteomyelitis. ESR elevated to 120, CRP elevated to 7.83 Superficial wound culture growing MSSA and Enterococcus faecalis Deep wound culture from bedside debridement on 05/23- posit for MSSA On amoxicillin and doxycycline - finished abx course Per podiatry - -Continue offloading bilateral heel at all times while at rest with either pillows behind calves suspending the heel or in heel offloading boots. - Continue once daily dressing changes with Betadine wet-to-dry dressing to the bilateral heel wound until follow-up in the wound center. - Patient encouraged to follow-up with the wound center within 1 month of discharge for reevaluation of bilateral heel wounds. - Okay to continue weightbearing bilateral in hospital socks which she reports is her standard footwear at home. Use walker or other support at all times while weightbearing. Plan for SNF #TREMAYNE on CKD Baseline creatinine of 2-2.2 Presented with creatinine of 2.8, status post hydration Continuing Lasix. Hold lisinopril Resumed furosemide, d/c on 40mg lasix discontinued fenofibrate - seen by nephrology - Cr was stable ~3 - now Cr 3.5, will hold lasix, cont. to monitor - nephrology reconsulted - lokelma given and NS NEPHRO D/C NOTE -d/c on daily lasix 40 mg -hold lisinopril at d/c >fenofibrate contraindicated in CKD 4 and would stop this permanently; defer to PCP and/or cardiology for alternative hypertriglyceride medications in renal failure >bmp weekly at rehab/SNF and contact [facility] nephrology Dr Garcia if concerns >bmp at PCP hospital d/c visit >bmp, cbc/d, ACR, UACM to be ordered by neph nurse and done no more than 72 hr before hospital d/c visit w/ Dr Garcia 3 weeks AFTER rehab/SNF d/c or 6 wks aft er hospital d/c, whichever is first #Persistent atrial fibrillation Continue on Cardizem digoxin and Coumadin Echocardiogram shows EF of 60 to 65%, left atrium severely dilated #Type 2 diabetes mellitus stop taking oral agents couple of months ago as per PCP instructions Continue on insulin while inpt Follow-up with PCP for long-term management as HbA1c is 9% Discussed about resuming glipizide which she was taking prior to stopping it couple of months ago. telehealth nurse educator also consulted PCP updated #Hyperlipidemia- hold pravastatin while patient is on daptomycin #Goutcontinue on allopurinol #Hypertensioncontinue on metoprolol. Hold lisinopril Full code DVT prophylaxis Coumadin Admission and Anticipated Discharge Date Admission Date: May 21, 2024 Subjective Pt seen in follow up Seen by podiatry Also seen by nephrology for TREMAYNE on CKD - Dc recs provided and reviewed with the pt. However Cr up at 3.5 , BUN also elevated - discussed w/ nephrology - will see pt again Currently laying in bed in NAD Overall pt feels well. Denies any chest pain, shortness of breath, palpitations, abd.pain, n/v Eating well, had BM. Urinating ok Updated pt's PCP - Dr. Lee earlier - she will follow up on pt's DM needs and other med issues Physical Exam Physical Exam: Constitutional: obese elderly F in NAD HEENT: NC/AT, EOMI, Mucous membranes moist. Lungs: Clear to auscultation, decreased, no wheezes rales or rhonchi CV: regular Abdomen: Soft, nontender, nondistended Extremities: No significant LE edema, dressings on bilateral heels dry and intact Neuro: awake, alert, oriented, answers appropriately, no facial asymmetry, moves extremities Results & Data Results & Data Vital Signs (Past 12 Hours) Vital Signs Temp Pulse Pulse Resp BP Pulse Ox O2 Del Method 06/05/24 07:25 36.3 C L 79 20 140/81 93 Room Air 06/04/24 22:09 36.5 C 74 14 109/58 L 94 Room Air Laboratory Results 06/05/24 06/05/24 06/04/24 Range/Units 07:51 07:16 20:37 Sodium 135 L (136-145) mmol/L Potassium 4.9 (3.5-5.1) mmol/L Chloride 102 (98-107) mmol/L Carbon Dioxide 25 (21-32) mmol/L Anion Gap 8 (3-11) BUN 111 H (6-23) mg/dl Creatinine 2.94 H D (0.6-1.2) mg/dl Est Cr Clr Drug Dosing 16.8 ml/min eGFR 14.86 BUN/Creatinine Ratio 37.8 H (10-20) Glucose 81 (70-99(Fasting)) mg/dl POC Glucose 88 129 H (70-99) mg/dl Calcium 9.5 (8.6-10.3) mg/dl Phosphorus 5.4 H (2.5-4.9) mg/dl Magnesium 2.7 H (1.7-2.4) mg/dl 06/04/24 06/04/24 Range/Units 16:39 12:13 Sodium (136-145) mmol/L Potassium (3.5-5.1) mmol/L Chloride (98-107) mmol/L Carbon Dioxide (21-32) mmol/L Anion Gap (3-11) BUN (6-23) mg/dl Creatinine (0.6-1.2) mg/dl Est Cr Clr Drug Dosing ml/min eGFR BUN/Creatinine Ratio (10-20) Glucose (70-99(Fasting)) mg/dl POC Glucose 133 H 160 H (70-99) mg/dl Calcium (8.6-10.3) mg/dl Phosphorus (2.5-4.9) mg/dl Magnesium (1.7-2.4) mg/dl Medications Administered Current Inpatient Medications Acetaminophen (Acetaminophen 325 Mg Tab) 650 mg PO Q4H PRN PRN Reason: Pain or Fever Stop: 06/20/24 13:08 Last Admin: 06/04/24 17:31 Dose: 650 mg Acetaminophen (Acetaminophen 500 Mg Tab) 500 mg PO [facility] Stop: 06/20/24 20:59 Last Admin: 06/04/24 20:43 Dose: 500 mg Allopurinol (Allopurinol 300 Mg Tab) 300 mg PO [facility] Stop: 06/21/24 08:59 Last Admin: 06/05/24 07:56 Dose: 300 mg Aspirin (Aspirin 81 Mg Ectab) 81 mg PO [facility] Stop: 06/23/24 20:59 Last Admin: 06/04/24 20:45 Dose: 81 mg Cyanocobalamin (Cyanocobalamin (B-12) 2,500 Mcg Tablet) 2,500 mcg PO [facility] Stop: 06/20/24 20:59 Last Admin: 06/04/24 20:45 Dose: 2,500 mcg Dextrose (Dextrose 50% 50 Ml Syringe) 25 - 50 ml IV UD PRN; Protocol PRN Reason: Hypoglycemia Protocol Stop: 06/20/24 13:16 Digoxin (Digoxin 0.125 Mg Tab) 0.125 mg PO TuThSa@0900 [facility] Stop: 06/23/24 08:59 Last Admin: 06/04/24 08:33 Dose: 0.125 mg Diltiazem HCl (Diltiazem Hcl 120 Mg Capcr) 120 mg PO [facility] Stop: 06/21/24 08:59 Last Admin: 06/05/24 08:05 Dose: 120 mg Diphenhydramine HCl (Diphenhydramine Capsule 25 Mg Cap) 25 mg PO [facility] Stop: 06/20/24 20:59 Last Admin: 06/04/24 20:43 Dose: 25 mg Famotidine (Famotidine 20 Mg Tab) 20 mg PO [facility] Stop: 06/21/24 08:59 Last Admin: 06/05/24 08:04 Dose: 20 mg Furosemide (Furosemide 40 Mg Tab) 40 mg PO [facility] Stop: 06/20/24 12:59 Last Admin: 06/02/24 09:01 Dose: 40 mg Glucagon (Glucagon For Inj 1 Mg Vial) 1 mg SQ UD PRN; Protocol PRN Reason: Hypoglycemia Protocol Stop: 06/20/24 13:16 Glucose (Glucose 40% Gel 15 Gm Tube) 15 - 30 gm PO UD PRN; Protocol PRN Reason: Hypoglycemia Protocol Stop: 06/20/24 13:16 Glucose (Glucose 10 Tab/Tube) 4 - 8 tab PO UD PRN; Protocol PRN Reason: Hypoglycemia Protocol Stop: 06/20/24 13:16 Insulin Aspart (Insulin Aspart Per Unit Charge) 0 units SC ACHS [facility] Stop: 06/20/24 16:29 Last Admin: 06/05/24 09:06 Dose: 10 units Insulin Glargine (Lantus Per Unit Charge) 28 units SC DAILY [facility] Stop: 06/27/24 08:59 Last Admin: 06/05/24 09:07 Dose: 28 units Insulin Glargine (Lantus Per Unit Charge) 8 units SQ HS [facility] Stop: 07/03/24 20:59 Last Admin: 06/04/24 20:43 Dose: 8 units Lactic Acid (Ammonium Lactate 12% Lotion 225 Gm Btl) 1 gm EXT BID [facility] Stop: 06/27/24 20:59 Last Admin: 06/05/24 07:55 Dose: 1 gm Menthol (Cough Drop (Sugar Free) Freya 24 Freya/1 Box) 1 freya BUCCAL PRN PRN PRN Reason: Sore Throat Stop: 06/28/24 20:02 Last Admin: 05/29/24 20:20 Dose: 1 freya Metoprolol Succinate (Metoprolol Succ 50mg Ext Rel Tab) 50 mg PO QAM [facility] Stop: 06/21/24 08:59 Last Admin: 06/05/24 07:56 Dose: 50 mg Miconazole Nitrate (Miconazole Nitrate Powder 85 Gm) 1 appln EXT BID [facility] Stop: 06/23/24 00:59 Last Admin: 06/05/24 07:55 Dose: 1 appln Miscellaneous Information (Pharmacy Glycemic Mgmt Consult) 1 each N/A UD PRN; Protocol PRN Reason: Consult Stop: 06/23/24 12:33 Multivitamins/Minerals (Cerovite Adv Formula Tab) 1 tab PO BID [facility] Stop: 06/20/24 20:59 Last Admin: 06/05/24 07:56 Dose: 1 tab Nystatin (Nystatin Powder 15gm Btl) 1 appln EXT TID PRN PRN Reason: Other Stop: 06/20/24 12:52 Polyethylene Glycol (Polyethylene (Miralax) 17 Gm Pack) 17 gm PO DAILY [facility] Stop: 06/22/24 09:44 Last Admin: 06/05/24 08:04 Dose: 17 gm Pravastatin Sodium (Pravastatin Sod 40 Mg Tab) 40 mg PO HS [facility] Stop: 06/20/24 20:59 Last Admin: 05/21/24 20:20 Dose: 40 mg Sodium Zirconium Cyclosilicate (Sodium Zirconium Cyclosilicate 10 Gm Packet) 10 gm PO TID [facility] Stop: 06/06/24 09:01 Last Admin: 06/05/24 07:57 Dose: 10 gm Warfarin Sodium (Warfarin Sod 6 Mg Tab) 6 mg PO DAILY@1600 [facility] Stop: 06/28/24 15:59 Last Admin: 06/03/24 16:04 Dose: 6 mg
--- NOTE | 2024-06-05 11:44 | Hospitalist Progress Note ---
Date of Service June 05, 2024 Assessment & Plan (1) Diabetic infection of left foot: (2) Acute renal failure superimposed on stage 3 chronic kidney disease: (3) Pressure injury of left heel, unstageable: (4) Stage II pressure ulcer of right heel: (5) Type 2 diabetes mellitus: (6) Ambulatory dysfunction: (7) Persistent atrial fibrillation: (8) On warfarin therapy: (9) Acute on chronic diastolic (congestive) heart failure: Plan Ms. Lazar is an 89 woman with history of DM, n HF, Afib, htn, DM who was admitted due to infected left pressure ulcer of the heel and diabetic foot ulcer. Patient was evaluated by podiatry who did bedside debridement of left heel on with notable improvement. Patient encouraged to off load. Completed course of oral antibiotics. #Left heel pressure ulcer POA s/p bedside debridement on 05/23 Patient presented to the hospital for evaluation Of wound at her left heel On examination; had black eschar with foul smelling discharge and surrounding necrotic tissue No leukocytosis CT of bilateral lower extremity was done; no underlying drainable collection. Ankle MRI showed a skin defect at the heel region with subcutaneous edema suggesting cellulitis; no suggestion of osteomyelitis. ESR elevated to 120, CRP elevated to 7.83 Superficial wound culture growing MSSA and Enterococcus faecalis Deep wound culture from bedside debridement on 05/23- posit for MSSA On amoxicillin and doxycycline - finished abx course Per podiatry - -Continue offloading bilateral heel at all times while at rest with either pillows behind calves suspending the heel or in heel offloading boots. - Continue once daily dressing changes with Betadine wet-to-dry dressing to the bilateral heel wound until follow-up in the wound center. - Patient encouraged to follow-up with the wound center within 1 month of discharge for reevaluation of bilateral heel wounds. - Okay to continue weightbearing bilateral in hospital socks which she reports is her standard footwear at home. Use walker or other support at all times while weightbearing. Plan for SNF #TREMAYNE on CKD Baseline creatinine of 2-2.2 Presented with creatinine of 2.8, status post hydration Continuing Lasix. Hold lisinopril Resumed furosemide, d/c on 40mg lasix discontinued fenofibrate - seen by nephrology - Cr was stable ~3 - then Cr 3.5, held lasix, cont. to monitor - nephrology reconsulted - lokelma given and NS Cr back to 2.9 now (06/04/2023) NEPHRO D/C NOTE -d/c on daily lasix 40 mg -hold lisinopril at d/c >fenofibrate contraindicated in CKD 4 and would stop this permanently; defer to PCP and/or cardiology for alternative hypertriglyceride medications in renal failure >bmp weekly at rehab/SNF and contact [facility] nephrology Dr Garcia if concerns >bmp at PCP hospital d/c visit >bmp, cbc/d, ACR, UACM to be ordered by neph nurse and done no more than 72 hr before hospital d/c visit w/ Dr Garcia 3 weeks AFTER rehab/SNF d/c or 6 wks after hospital d/c, whichever is first #Persistent atrial fibrillation Continue on Cardizem digoxin and Coumadin Echocardiogram shows EF of 60 to 65%, left atrium severely dilated #Type 2 diabetes mellitus stop taking oral agents couple of months ago as per PCP instructions Continue on insulin while inpt Follow-up with PCP for long-term management as HbA1c is 9% Discussed about resuming glipizide which she was taking prior to stopping it couple of months ago. informatics educator also consulted PCP updated #Hyperlipidemia- held pravastatin while patient on daptomycin #Goutcontinue on allopurinol #Hypertensioncontinue on metoprolol. Hold lisinopril - lisinopril to be stopped altogether on DC Full code DVT prophylaxis Coumadin Admission and Anticipated Discharge Date Admission Date: May 21, 2024 Subjective Pt seen in follow up Seen by podiatry Also seen by nephrology for TREMAYNE on CKD - Dc recs provided and reviewed with the pt. However Cr up at 3.5 , BUN also elevated - discussed w/ nephrology - No plan for dialysis. received loklema and IVF. Currently laying in bed in NAD Overall pt feels well. Denies any chest pain, shortness of breath, palpitations, abd.pain, n/v Updated pt's PCP earlier - she will follow up on pt's DM needs and other med issues Review of Systems Review of Systems: All systems reviewed & are unremarkable except as noted in Subjective Physical Exam Physical Exam: Constitutional: obese elderly F in NAD HEENT: NC/AT, EOMI, Mucous membranes moist. Lungs: Clear to auscultation, decreased, no wheezes rales or rhonchi CV: regular Abdomen: Soft, nontender, nondistended Extremities: No significant LE edema, dressings on bilateral heels dry and intact Neuro: awake, alert, oriented, answers appropriately, no facial asymmetry, moves extremities Results & Data Results & Data Vital Signs (Past 12 Hours) Vital Signs Temp Pulse Resp BP Pulse Ox O2 Del Method 06/05/24 11:31 36.3 C L 90 18 118/75 95 Room Air 06/05/24 07:45 Room Air 06/05/24 07:25 36.3 C L 79 20 140/81 93 Room Air Laboratory Results 06/05/24 06/05/24 06/04/24 Range/Units 07:51 07:16 20:37 Sodium 135 L (136-145) mmol/L Potassium 4.9 (3.5-5.1) mmol/L Chloride 102 (98-107) mmol/L Carbon Dioxide 25 (21-32) mmol/L Anion Gap 8 (3-11) BUN 111 H (6-23) mg/dl Creatinine 2.94 H D (0.6-1.2) mg/dl Est Cr Clr Drug Dosing 16.8 ml/min eGFR 14.86 BUN/Creatinine Ratio 37.8 H (10-20) Glucose 81 (70-99(Fasting)) mg/dl POC Glucose 88 129 H (70-99) mg/dl Calcium 9.5 (8.6-10.3) mg/dl Phosphorus 5.4 H (2.5-4.9) mg/dl Magnesium 2.7 H (1.7-2.4) mg/dl 06/04/24 06/04/24 Range/Units 16:39 12:13 Sodium (136-145) mmol/L Potassium (3.5-5.1) mmol/L Chloride (98-107) mmol/L Carbon Dioxide (21-32) mmol/L Anion Gap (3-11) BUN (6-23) mg/dl Creatinine (0.6-1.2) mg/dl Est Cr Clr Drug Dosing ml/min eGFR BUN/Creatinine Ratio (10-20) Glucose (70-99(Fasting)) mg/dl POC Glucose 133 H 160 H (70-99) mg/dl Calcium (8.6-10.3) mg/dl Phosphorus (2.5-4.9) mg/dl Magnesium (1.7-2.4) mg/dl Medications Administered Current Inpatient Medications Acetaminophen (Acetaminophen 325 Mg Tab) 650 mg PO Q4H PRN PRN Reason: Pain or Fever Stop: 06/20/24 13:08 Last Admin: 06/04/24 17:31 Dose: 650 mg Acetaminophen (Acetaminophen 500 Mg Tab) 500 mg PO [facility] Stop: 06/20/24 20:59 Last Admin: 06/04/24 20:43 Dose: 500 mg Allopurinol (Allopurinol 300 Mg Tab) 300 mg PO [facility] Stop: 06/21/24 08:59 Last Admin: 06/05/24 07:56 Dose: 300 mg Aspirin (Aspirin 81 Mg Ectab) 81 mg PO [facility] Stop: 06/23/24 20:59 Last Admin: 06/04/24 20:45 Dose: 81 mg Cyanocobalamin (Cyanocobalamin (B-12) 2,500 Mcg Tablet) 2,500 mcg PO [facility] Stop: 06/20/24 20:59 Last Admin: 06/04/24 20:45 Dose: 2,500 mcg Dextrose (Dextrose 50% 50 Ml Syringe) 25 - 50 ml IV UD PRN; Protocol PRN Reason: Hypoglycemia Protocol Stop: 06/20/24 13:16 Digoxin (Digoxin 0.125 Mg Tab) 0.125 mg PO TuThSa@0900 [facility] Stop: 06/23/24 08:59 Last Admin: 06/04/24 08:33 Dose: 0.125 mg Diltiazem HCl (Diltiazem Hcl 120 Mg Capcr) 120 mg PO [facility] Stop: 06/21/24 08:59 Last Admin: 06/05/24 08:05 Dose: 120 mg Diphenhydramine HCl (Diphenhydramine Capsule 25 Mg Cap) 25 mg PO [facility] Stop: 06/20/24 20:59 Last Admin: 06/04/24 20:43 Dose: 25 mg Famotidine (Famotidine 20 Mg Tab) 20 mg PO [facility] Stop: 06/21/24 08:59 Last Admin: 06/05/24 08:04 Dose: 20 mg Furosemide (Furosemide 40 Mg Tab) 40 mg PO [facility] Stop: 06/20/24 12:59 Last Admin: 06/02/24 09:01 Dose: 40 mg Glucagon (Glucagon For Inj 1 Mg Vial) 1 mg SQ UD PRN; Protocol PRN Reason: Hypoglycemia Protocol Stop: 06/20/24 13:16 Glucose (Glucose 40% Gel 15 Gm Tube) 15 - 30 gm PO UD PRN; Protocol PRN Reason: Hypoglycemia Protocol Stop: 06/20/24 13:16 Glucose (Glucose 10 Tab/Tube) 4 - 8 tab PO UD PRN; Protocol PRN Reason: Hypoglycemia Protocol Stop: 06/20/24 13:16 Insulin Aspart (Insulin Aspart Per Unit Charge) 0 units SC ACHS [facility] Stop: 06/20/24 16:29 Last Admin: 06/05/24 09:06 Dose: 10 units Insulin Glargine (Lantus Per Unit Charge) 28 units SC DAILY [facility] Stop: 06/27/24 08:59 Last Admin: 06/05/24 09:07 Dose: 28 units Insulin Glargine (Lantus Per Unit Charge) 8 units SQ HS [facility] Stop: 07/03/24 20:59 Last Admin: 06/04/24 20:43 Dose: 8 units Lactic Acid (Ammonium Lactate 12% Lotion 225 Gm Btl) 1 gm EXT BID [facility] Stop: 06/27/24 20:59 Last Admin: 06/05/24 07:55 Dose: 1 gm Menthol (Cough Drop (Sugar Free) Freya 24 Freya/1 Box) 1 freya BUCCAL PRN PRN PRN Reason: Sore Throat Stop: 06/28/24 20:02 Last Admin: 05/29/24 20:20 Dose: 1 freya Metoprolol Succinate (Metoprolol Succ 50mg Ext Rel Tab) 50 mg PO QAM [facility] Stop: 06/21/24 08:59 Last Admin: 06/05/24 07:56 Dose: 50 mg Miconazole Nitrate (Miconazole Nitrate Powder 85 Gm) 1 appln EXT BID [facility] Stop: 06/23/24 00:59 Last Admin: 06/05/24 07:55 Dose: 1 appln Miscellaneous Information (Pharmacy Glycemic Mgmt Consult) 1 each N/A UD PRN; Protocol PRN Reason: Consult Stop: 06/23/24 12:33 Multivitamins/Minerals (Cerovite Adv Formula Tab) 1 tab PO BID [facility] Stop: 06/20/24 20:59 Last Admin: 06/05/24 07:56 Dose: 1 tab Nystatin (Nystatin Powder 15gm Btl) 1 appln EXT TID PRN PRN Reason: Other Stop: 06/20/24 12:52 Polyethylene Glycol (Polyethylene (Miralax) 17 Gm Pack) 17 gm PO DAILY [facility] Stop: 06/22/24 09:44 Last Admin: 06/05/24 08:04 Dose: 17 gm Pravastatin Sodium (Pravastatin Sod 40 Mg Tab) 40 mg PO HS [facility] Stop: 06/20/24 20:59 Last Admin: 05/21/24 20:20 Dose: 40 mg Sodium Zirconium Cyclosilicate (Sodium Zirconium Cyclosilicate 10 Gm Packet) 10 gm PO TID [facility] Stop: 06/06/24 09:01 Last Admin: 06/05/24 07:57 Dose: 10 gm Warfarin Sodium (Warfarin Sod 6 Mg Tab) 6 mg PO DAILY@1600 [facility] Stop: 06/28/24 15:59 Last Admin: 06/03/24 16:04 Dose: 6 mg
--- NOTE | 2024-06-05 13:49 | Pharmacy Report ---
Pharmacy Glycemic Short Note 2 - Date of Service June 05, 2024 - Glycemic Short BSG Results (Last 24 hours): 06/04/24 06/04/24 06/05/24 16:39 20:37 07:16 Glucose 81 POC Glucose 133 H 129 H 06/05/24 06/05/24 07:51 12:02 Glucose POC Glucose 88 144 H OUTPATIENT ANTIDIABETIC REGIMEN: * Previously on glipizide 5 mg BID--> this was stopped outpatient * A1c 9.1% 05/22/24 ASSESSMENT: 06/05: * Angela received 65 units of insulin yesterday, 36 basal + 29 bolus. BSGs were: 991-250-213-129 mg/dL. * Fasting BSG down to 88 mg/dL this AM. Will discontinue HS basal dose which is about a 20% reduction in total basal dose for today. * No change to Novolog at this time. Tolerating T2DM diet. 06/03 * Patient received a total of 61 units of insulin yesterday (38 were basal and 23 were bolus). * Fasting BSG was 96mg/dL this morning and yesterday morning so the HS lantus dose has been decreased by 20%. * Bolus insulin parameters to remain as ordered--BSG improved yesterday. 05/30 * Angela received 70 units of insulin yesterday (38 were basal) * Fasting BSG this AM slightly below goal range, if continuing to trend low will reduce basal dosing. * No changes to NovoLog at this time, she continues on oral amoxicillin and doxycycline. 05/27 * Patient received a total of 63 units of insulin yesterday (35 units were basal). * Fasting BSG was 188mg/dL this morning, so the scale for HS Lantus has been adjusted (now will received 15 units of Lantus for BSG > 170 instead of > 200, etc) * BSGs were still above goal most of yesterday (235, 170, 174mg/dL), so bolus insulin parameters were tightened again today. The AM Lantus dose was also increased by ~10%. * Renal function slightly better than yesterday (SCr 3.01) and antibiotics changed to doxycycline and amoxicillin for left foot infection. 05/26 * Patient received a total of 60 units of insulin yesterday (35 units were basal) * Fasting BSG was in range this morning so basal insulin will remain the same (Lantus 25 units in the morning and Lantus scale at bedtime -0-15 units depending on BSG) * BSGs were above goal most of yesterday so CR was tightened yesterday. BSG reese to 235mg/dL at lunch today so CR tightened again today. * Patient with worsening renal function (SCr 3.13 today--baseline SCr is 2-1.2) and continues on daptomycin for and infection of the left foot. 05/24 * Patient is admitted with left heel wound, TREMAYNE on CKD --> SCr trending upward * Fasting 182-210 mg/dL the past three days- will initiate lantus using adjusted body weight stress of 1- 2 * Patient previously reported adequate control on glipizide per diabetes educ ation note, will trial tightened parameters as previous has resulted in prandial BSGs in the 200s PLAN FOR INPATIENT GLYCEMIC CONTROL: * Hold outpatient oral diabetes medications * Basal insulin * Lantus 28 units SC AM * Bolus insulin * NovoLog per scale ACHS or Q6hrs while NPO * Goal Range: Low 120 mg/dL - High 150 mg/dL * Correction Factor: 25 mg/dL/unit * Nutritional / Prandial insulin per carb ratio of 1 unit per 6 grams CHO consumed
--- NOTE | 2024-06-05 15:46 | Nephrology Progress Note ---
Date of Service June 05, 2024 Assessment & Plan Admission and Anticipated Discharge Date Admission Date: May 21, 2024 Subjective Assessment & Plan (1) Acute renal failure superimposed on stage 4 chronic kidney disease: Plan: Stage one improving nonoliguric TREMAYNE on CKD 4. Baseline creatinine 2 as of September 2023 w/ 1.5 gm proteinuria. presented 05/21 w/ L diabetic foot infection and creatinine 2.8, reached karen of 2.4 on 05/22, then back to 2.9 as of 05/24 and plateau'd at about 3 for some time but then rising again and is 3.5 now. Also BUN is rising and upto 121 now. Calling this TREMAYNE for now in setting of infection; quite possible however that this is CKD progression. with her obesity hard to assess fluid status. But her BUN and Creat did get better with IVF so will do one more day of NS 1000 ml Rec: 1. Cxr --reviewed. no CHF 2 Can stop Lokelma now. k is 4.9 3 Give benefit of doubt and use NS at 80 ml/hr for 1000 ml . BUn and Creat did come down after IVF 4 daily bmp -strict I/O to continue -no indication for acute dialysis at this moment. Also she categorically says she will never do dialysis which is a good decision. Volume status, impression of causes of worsening renal function, recommendations reviewed w/ Dr Felix via phone; we are in agreement. Subjective Patient feels fine. denies N,v, CP, SOB. renal Labs better today than yesterday. making urine. Review of Systems Review of Systems: All systems reviewed & are unremarkable except as noted in Subjective Physical Exam Constitutional: well developed, well nourished, + frail appearing and cooperative; no acute distress Eyes: EOM intact bilaterally ENMT: Mouth: + dry oral mucous membranes Neck: no nuchal rigidity Respiratory: normal respiratory effort Auscultation: + diminished lung sounds (narayan BL bases) Cardiovascular: Rate/Rhythm: regular rate and regular rhythm Heart Sounds: + murmur Extremities: no edema Gastrointestinal (Abdomen): Inspection/Auscultation: normal bowel sounds Percussion/Palpation: abdomen soft; abdomen nontender Musculoskeletal: Extremities: strength 5/5 throughout Skin: no rashes, warm and dry Psychiatric: Orientation: alert and oriented x 3 Speech: normal rate/rhythm/volume of speech Results & Data Vital Signs (Past 12 Hours) Vital Signs Temp Pulse Resp BP Pulse Ox O2 Del Method 06/05/24 11:31 36.3 C L 90 18 118/75 95 Room Air 06/05/24 07:45 Room Air 06/05/24 07:25 36.3 C L 79 20 140/81 93 Room Air
[2024-06-05] MEDS: SODIUM CHLORIDE 0.9% 1,000 ML IV SCH (16:33)
[2024-06-06] MEDS: LANTUS PER UNIT CHARGE SC SCH (08:51)
[2024-06-06 09:35] LABS: Hematocrit (blood only) 29.4 % (37.0-47.0); Hemoglobin 9.5 g/dl (12.0-16.0); Mean Corpuscular Hemoglobin 29.5 pg (25.0-34.0); Mean Corpuscular Hgb Conc 32.3 g/dL (32.0-36.0); Mean Corpuscular Volume 91.3 fL (80.0-100.0); Mean Platelet Volume 10.9 fL (9.4-12.4); Platelet Count 280 K/uL (130-400); RDW Coefficient of Variation 16.8 % (11.5-14.5); RDW Standard Deviation 55.2 fL (36.4-46.3); Red Blood Count 3.22 M/uL (4.20-5.40); White Blood Count 6.66 K/ul (4.8-10.8)
[2024-06-06 10:00] LABS: BUN Creatinine Ratio 34.2 (10-20); Calcium 9.7 mg/dl (8.6-10.3); Creatinine Clr Calc Pharmacy 16.9 ml/min; Magnesium 2.6 mg/dl (1.7-2.4); Phosphorus 4.8 mg/dl (2.5-4.9); Potassium 4.8 mmol/L (3.5-5.1)
[2024-06-06 10:01] LABS: INR 2.7 (0.9-1.1); Prothrombin Time 27.2 Seconds (9.0-12.0)
--- NOTE | 2024-06-06 11:11 | Nephrology Progress Note ---
Date of Service June 06, 2024 Assessment & Plan Admission and Anticipated Discharge Date Admission Date: May 21, 2024 Subjective Assessment & Plan (1) Acute renal failure superimposed on stage 4 chronic kidney disease: Plan: Stage one improving nonoliguric TREMAYNE on CKD 4. Baseline creatinine 2 as of September 2023 w/ 1.5 gm proteinuria. presented 05/21 w/ L diabetic foot infection and creatinine 2.8, reached karen of 2.4 on 05/22, then back to 2.9 as of 05/24 and plateau'd at about 3 for some time but then rising again and is 3.5 now. Also BUN is rising and upto 121 now. Calling this TREMAYNE for now in setting of infection; quite possible however that this is CKD progression. Rec: 1. Cxr --reviewed. no CHF 2 Give benefit of doubt and use NS at 80 ml/hr for 1000 ml . BUn and Creat did come down after IVF. No more iv fluid after that. 3 No Lasix or Lisinopril at discharge. with her obesity hard to assess fluid status. But her BUN and Creat did get better with IVF so will do one more day of NS 1000 ml 4 daily bmp while inpt -strict I/O to continue -no indication for acute dialysis at this moment. Also she categorically says she will never do dialysis which is a good decision. Volume status, impression of causes of worsening renal function, recommendations reviewed w/ Dr Felix. we are in agreement. Subjective Patient feels fine. denies N,v, CP, SOB. renal Labs better today than yesterday. making urine. Review of Systems Review of Systems: All systems reviewed & are unremarkable except as noted in Subjective Physical Exam Constitutional: well developed, well nourished, + frail appearing and cooperative; no acute distress Eyes: EOM intact bilaterally ENMT: Mouth: + dry oral mucous membranes Neck: no nuchal rigidity Respiratory: normal respiratory effort Auscultation: + diminished lung sounds (narayan BL bases) Cardiovascular: Rate/Rhythm: regular rate and regular rhythm Heart Sounds: + murmur Extremities: no edema Gastrointestinal (Abdomen): Inspection/Auscultation: normal bowel sounds Percussion/Palpation: abdomen soft; abdomen nontender Musculoskeletal: Extremities: strength 5/5 throughout Skin: no rashes, warm and dry Psychiatric: Orientation: alert and oriented x 3 Speech: normal rate/rhythm/volume of speech Results & Data Vital Signs (Past 12 Hours) Vital Signs Temp Pulse Resp BP Pulse Ox O2 Del Method 06/06/24 08:39 36.5 C 75 18 136/82 93 Room Air
--- NOTE | 2024-06-06 11:59 | Hospitalist Progress Note ---
Date of Service June 06, 2024 Assessment & Plan (1) Diabetic infection of left foot: (2) Acute renal failure superimposed on stage 3 chronic kidney disease: (3) Pressure injury of left heel, unstageable: (4) Stage II pressure ulcer of right heel: (5) Type 2 diabetes mellitus: (6) Ambulatory dysfunction: (7) Persistent atrial fibrillation: (8) On warfarin therapy: (9) Acute on chronic diastolic (congestive) heart failure: Plan (1) Diabetic infection of left foot: (2) Acute renal failure superimposed on stage 3 chronic kidney disease: (3) Pressure injury of left heel, unstageable: (4) Stage II pressure ulcer of right heel: (5) Type 2 diabetes mellitus: (6) Ambulatory dysfunction: (7) Persistent atrial fibrillation: (8) On warfarin therapy: (9) Acute on chronic diastolic (congestive) heart failure: Plan Ms. Lazar is an 89 woman with history of DM, HF, Afib, htn, DM who was admitted due to infected left pressure ulcer of the heel and diabetic foot ulcer. Patient was evaluated by podiatry who did bedside debridement of left heel on with notable improvement. Patient encouraged to off load. Completed course of oral antibiotics. #Left heel pressure ulcer POA s/p bedside debridement on 05/23 Patient presented to the hospital for evaluation Of wound at her left heel On examination; had black eschar with foul smelling discharge and surrounding necrotic tissue No leukocytosis CT of bilateral lower extremity was done; no underlying drainable collection. Ankle MRI showed a skin defect at the heel region with subcutaneous edema espinoza ggesting cellulitis; no suggestion of osteomyelitis. ESR elevated to 120, CRP elevated to 7.83 Superficial wound culture growing MSSA and Enterococcus faecalis Deep wound culture from bedside debridement on 05/23- posit for MSSA On amoxicillin and doxycycline - finished abx course Per podiatry - -Continue offloading bilateral heel at all times while at rest with either pillows behind calves suspending the heel or in heel offloading boots. - Continue once daily dressing changes with Betadine wet-to-dry dressing to the bilateral heel wound until follow-up in the wound center. - Patient encouraged to follow-up with the wound center within 1 month of discharge for reevaluation of bilateral heel wounds. - Okay to continue weightbearing bilateral in hospital socks which she reports is her standard footwear at home. Use walker or other support at all times while weightbearing. Plan for SNF #TREMAYNE on CKD Baseline creatinine of 2-2.2 Presented with creatinine of 2.8, status post hydration Continuing Lasix. Hold lisinopril Resumed furosemide, d/c on 40mg lasix discontinued fenofibrate - seen by nephrology - Cr stable ~3 - then Cr 3.5, held lasix, cont. to monitor - nephrology reconsulted - lokelma given and NS Cr back to 2.9 now (06/04/2023) Discussed w/ nephrology today (06/06/23) cont to hold lasix on DC NEPHRO D/C NOTE - hold lasix 40 mg at dc as above -hold lisinopril at d/c >fenofibrate contraindicated in CKD 4 and would stop this permanently; defer to PCP and/or cardiology for alternative hypertriglyceride medications in renal failure >bmp weekly at rehab/SNF and contact [facility] nephrology Dr Garcia if concerns >bmp at PCP hospital d/c visit >bmp, cbc/d, ACR, UACM to be ordered by neph nurse and done no more than 72 hr before hospital d/c visit w/ Dr Garcia 3 weeks AFTER rehab/SNF d/c or 6 wks after hospital d/c, whichever is first #Persistent atrial fibrillation Continue on Cardizem digoxin and Coumadin Echocardiogram shows EF of 60 to 65%, left atrium severely dilated #Type 2 diabetes mellitus stop taking oral agents couple of months ago as per PCP instructions Continue on insulin while inpt Follow-up with PCP for long-term management as HbA1c is 9% Discussed about resuming glipizide which she was taking prior to stopping it couple of months ago. health consultant also consulted PCP updated #Hyperlipidemia- held pravastatin while patient on daptomycin #Goutcontinue on allopurinol #Hypertensioncontinue on metoprolol. Hold lisinopril - lisinopril to be stopped altogether on DC Full code DVT prophylaxis Coumadin Admission and Anticipated Discharge Date Admission Date: May 21, 2024 Subjective Pt seen in follow up Seen by podiatry Also seen by nephrology for TREMAYNE on CKD - Dc recs provided and reviewed with the pt. However Cr up at 3.5 , BUN also elevated - discussed w/ nephrology - No plan for dialysis. received lokelma and IVF. Currently laying in bed in NAD Overall pt feels well. Denies any chest pain, shortness of breath, palpitations, abd.pain, n/v Updated pt's PCP earlier - she will follow up on pt's DM needs and other med issues Discussed with nephrology today - continue to hold lasix on DC Review of Systems Review of Systems: All systems reviewed & are unremarkable except as noted in Subjective Physical Exam Physical Exam: Constitutional: obese elderly F in NAD HEENT: NC/AT, EOMI, Mucous membranes moist. Lungs: Clear to auscultation, decreased, no wheezes rales or rhonchi CV: regular Abdomen: Soft, nontender, nondistended Extremities: No significant LE edema, dressings on bilateral heels dry and intact Neuro: awake, alert, oriented, answers appropriately, no facial asymmetry, moves extremities Results & Data Results & Data Vital Signs (Past 12 Hours) Vital Signs Temp Pulse Resp BP Pulse Ox O2 Del Method 06/06/24 08:39 36.5 C 75 18 136/82 93 Room Air Laboratory Results 06/06/24 06/06/24 06/06/24 Range/Units 11:52 09:17 07:34 WBC 6.66 (4.8-10.8) K/ul RBC 3.22 L (4.20-5.40) M/uL Hgb 9.5 L (12.0-16.0) g/dl Hct 29.4 L (37.0-47.0) % MCV 91.3 (80.0-100.0) fL MCH 29.5 (25.0-34.0) pg MCHC 32.3 (32.0-36.0) g/dL RDW Std Deviation 55.2 H (36.4-46.3) fL RDW Coeff of Eric 16.8 H (11.5-14.5) % Plt Count 280 (130-400) K/uL MPV 10.9 (9.4-12.4) fL PT 27.2 H (9.0-12.0) Seconds INR 2.7 H (0.9-1.1) Sodium 137 (136-145) mmol/L Potassium 4.8 (3.5-5.1) mmol/L Chloride 103 (98-107) mmol/L Carbon Dioxide 25 (21-32) mmol/L Anion Gap 9 (3-11) BUN 100 H (6-23) mg/dl Creatinine 2.92 H (0.6-1.2) mg/dl Est Cr Clr Drug Dosing 16.9 ml/min eGFR 14.98 BUN/Creatinine Ratio 34.2 H (10-20) Glucose 173 H (70-99(Fasting)) mg/dl POC Glucose 179 H 135 H (70-99) mg/dl Calcium 9.7 (8.6-10.3) mg/dl Phosphorus 4.8 (2.5-4.9) mg/dl Magnesium 2.6 H (1.7-2.4) mg/dl 06/05/24 06/05/24 06/05/24 Range/Units 20:13 16:48 12:02 WBC (4.8-10.8) K/ul RBC (4.20-5.40) M/uL Hgb (12.0-16.0) g/dl Hct (37.0-47.0) % MCV (80.0-100.0) fL MCH (25.0-34.0) pg MCHC (32.0-36.0) g/dL RDW Std Deviation (36.4-46.3) fL RDW Coeff of Eric (11.5-14.5) % Plt Count (130-400) K/uL MPV (9.4-12.4) fL PT (9.0-12.0) Seconds INR (0.9-1.1) Sodium (136-145) mmol/L Potassium (3.5-5.1) mmol/L Chloride (98-107) mmol/L Carbon Dioxide (21-32) mmol/L Anion Gap (3-11) BUN (6-23) mg/dl Creatinine (0.6-1.2) mg/dl Est Cr Clr Drug Dosing ml/min eGFR BUN/Creatinine Ratio (10-20) Glucose (70-99(Fasting)) mg/dl POC Glucose 104 H 130 H 144 H (70-99) mg/dl Calcium (8.6-10.3) mg/dl Phosphorus (2.5-4.9) mg/dl Magnesium (1.7-2.4) mg/dl Medications Administered Current Inpatient Medications Acetaminophen (Acetaminophen 325 Mg Tab) 650 mg PO Q4H PRN PRN Reason: Pain or Fever Stop: 06/20/24 13:08 Last Admin: 06/06/24 08:54 Dose: 650 mg Acetaminophen (Acetaminophen 500 Mg Tab) 500 mg PO [facility] Stop: 06/20/24 20:59 Last Admin: 06/05/24 20:22 Dose: 500 mg Allopurinol (Allopurinol 300 Mg Tab) 300 mg PO [facility] Stop: 06/21/24 08:59 Last Admin: 06/06/24 08:46 Dose: 300 mg Aspirin (Aspirin 81 Mg Ectab) 81 mg PO [facility] Stop: 06/23/24 20:59 Last Admin: 06/05/24 20:23 Dose: 81 mg Cyanocobalamin (Cyanocobalamin (B-12) 2,500 Mcg Tablet) 2,500 mcg PO [facility] Stop: 06/20/24 20:59 Last Admin: 06/05/24 20:23 Dose: 2,500 mcg Dextrose (Dextrose 50% 50 Ml Syringe) 25 - 50 ml IV UD PRN; Protocol PRN Reason: Hypoglycemia Protocol Stop: 06/20/24 13:16 Digoxin (Digoxin 0.125 Mg Tab) 0.125 mg PO TuThSa@0900 [facility] Stop: 06/23/24 08:59 Last Admin: 06/04/24 08:33 Dose: 0.125 mg Diltiazem HCl (Diltiazem Hcl 120 Mg Capcr) 120 mg PO [facility] Stop: 06/21/24 08:59 Last Admin: 06/06/24 08:46 Dose: 120 mg Diphenhydramine HCl (Diphenhydramine Capsule 25 Mg Cap) 25 mg PO [facility] Stop: 06/20/24 20:59 Last Admin: 06/05/24 20:22 Dose: 25 mg Famotidine (Famotidine 20 Mg Tab) 20 mg PO [facility] Stop: 06/21/24 08:59 Last Admin: 06/06/24 08:54 Dose: 20 mg Glucagon (Glucagon For Inj 1 Mg Vial) 1 mg SQ UD PRN; Protocol PRN Reason: Hypoglycemia Protocol Stop: 06/20/24 13:16 Glucose (Glucose 40% Gel 15 Gm Tube) 15 - 30 gm PO UD PRN; Protocol PRN Reason: Hypoglycemia Protocol Stop: 06/20/24 13:16 Glucose (Glucose 10 Tab/Tube) 4 - 8 tab PO UD PRN; Protocol PRN Reason: Hypoglycemia Protocol Stop: 06/20/24 13:16 Sodium Chloride (Nss) 1,000 mls @ 80 mls/hr IV .[id number] [facility] Stop: 06/06/24 15:44 Last Admin: 06/06/24 04:00 Dose: 80 mls/hr Sodium Chloride (Nss) 1,000 mls @ 80 mls/hr IV .[id number] [facility] Stop: 06/06/24 23:44 Insulin Aspart (Insulin Aspart Per Unit Charge) 0 units SC ACHS [facility] Stop: 06/20/24 16:29 Last Admin: 06/06/24 08:48 Dose: 8 units Insulin Glargine (Lantus Per Unit Charge) 30 units SC DAILY [facility] Stop: 06/27/24 08:59 Last Admin: 06/06/24 08:51 Dose: 30 units Lactic Acid (Ammonium Lactate 12% Lotion 225 Gm Btl) 1 gm EXT BID [facility] Stop: 06/27/24 20:59 Last Admin: 06/06/24 08:47 Dose: 1 gm Menthol (Cough Drop (Sugar Free) Freya 24 Freya/1 Box) 1 freya BUCCAL PRN PRN PRN Reason: Sore Throat Stop: 06/28/24 20:02 Last Admin: 05/29/24 20:20 Dose: 1 freya Metoprolol Succinate (Metoprolol Succ 50mg Ext Rel Tab) 50 mg PO QAM [facility] Stop: 06/21/24 08:59 Last Admin: 06/06/24 08:46 Dose: 50 mg Miconazole Nitrate (Miconazole Nitrate Powder 85 Gm) 1 appln EXT BID [facility] Stop: 06/23/24 00:59 Last Admin: 06/06/24 08:36 Dose: 1 appln Miscellaneous Information (Pharmacy Glycemic Mgmt Consult) 1 each N/A UD PRN; Protocol PRN Reason: Consult Stop: 06/23/24 12:33 Multivitamins/Minerals (Cerovite Adv Formula Tab) 1 tab PO BID [facility] Stop: 06/20/24 20:59 Last Admin: 06/06/24 08:46 Dose: 1 tab Nystatin (Nystatin Powder 15gm Btl) 1 appln EXT TID PRN PRN Reason: Other Stop: 06/20/24 12:52 Polyethylene Glycol (Polyethylene (Miralax) 17 Gm Pack) 17 gm PO DAILY [place] Stop: 06/22/24 09:44 Last Admin: 06/06/24 08:55 Dose: Not Given Pravastatin Sodium (Pravastatin Sod 40 Mg Tab) 40 mg PO HS [facility] Stop: 06/20/24 20:59 Last Admin: 06/05/24 20:23 Dose: 40 mg Warfarin Sodium (Warfarin Sod 6 Mg Tab) 6 mg PO DAILY@1600 [facility] Stop: 06/28/24 15:59 Last Admin: 06/03/24 16:04 Dose: 6 mg
--- NOTE | 2024-06-06 12:22 | Podiatry Progress Note ---
Date of Service June 06, 2024 Assessment & Plan (1) Pressure injury of left heel, unstageable: (2) Stage II pressure ulcer of right heel: Plan -Continue offloading bilateral heel at all times while at rest with either pillows behind calves suspending the heel or in heel offloading boots. -Bilateral heel wound dressing changed. Continue once daily dressing changes with Betadine wet-to-dry dressing to the bilateral heel wound until follow-up in the wound center. Right foot dressing changed to 2 x 2 gauze soaked in Betadine followed by a bordered foam dressing. Avoid any occlusive dressing to the right heel wound. Please dress with only gauze and gauze roll after Betadine soaked dressing. -Okay to continue weightbearing bilateral in hospital socks which she reports is her standard footwear at home. Use walker or other support at all times while weightbearing. -Patient has completed p.o. antibiotics with no current signs of local soft tissue infection of the bilateral heel. Recommend continued close monitoring for any signs of local soft tissue infection and would have a low threshold for reinstituting antibiotics as needed for recurrent cellulitis. -Communication placed with wound center to ask for patient to be scheduled some time at the end of the month for follow-up evaluation. -Patient is expecting discharge to [facility] tomorrow. No changes in treatment plan. Okay for discharge from podiatry standpoint. Thank you for consulting podiatry today in the care of this patient. Admission and Anticipated Discharge Date Admission Date: May 21, 2024 Subjective Pt seen resting comfortably in hospital bed with daughter present at bedside. Denies issues over the weekend. Dressing changed once daily. Reports that right hip pain has resolved and se was able to participate in PT today with standing and transfer without issue. Preparing for d/c to [facility] tomorrow midday. Physical Exam Physical Exam: Left foot: Unstageable pressure injury to posterior plantar heel: Eschar remains dry and stable. Surrounding open wound nearly epithelialized with only small superficial open wound remaining. No signs of local soft tissue infection. Right foot: Stage II pressure ulcer posterior lateral heel: 0.5 x 0.3 x0.1 cm with healthy granular base. No active drainage. No signs of local soft tissue infection. Results & Data Results & Data Vital Signs (Past 12 Hours) Vital Signs Temp Pulse Resp BP Pulse Ox O2 Del Method 06/06/24 08:39 36.5 C 75 18 136/82 93 Room Air Laboratory Results WBC 6.6 , BUN 100, Creatinine 2.92 Coding Level of Care Code 26562 SUB INP/OBS CARE 06/25MIN Diagnoses Pressure injury of left heel, unstageable L89.620 Stage II pressure ulcer of right heel L89.612
[2024-06-06] MEDS: SODIUM CHLORIDE 0.9% 1,000 ML IV SCH (18:31)
--- NOTE | 2024-06-07 07:04 | Podiatry Progress Note ---
Date of Service June 07, 2024 Assessment & Plan (1) Pressure injury of left heel, unstageable: (2) Stage II pressure ulcer of right heel: Plan -Continue offloading bilateral heel at all times while at rest with either pillows behind calves suspending the heel or in heel offloading boots. -Bilateral heel wound dressing changed. Continue once daily dressing changes with Betadine wet-to-dry dressing to the bilateral heel wound until follow-up. Right foot dressing changed to 2 x 2 gauze soaked in Betadine followed by a bordered foam dressing. Avoid any occlusive dressing to the left heel wound. Please dress with only gauze and gauze roll after Betadine soaked dressing. -Okay to continue weightbearing bilateral in hospital socks which she reports is her standard footwear at home. Use walker or other support at all times while weightbearing. -Recommend continued close monitoring for any signs of local soft tissue infection and would have a low threshold for reinstituting antibiotics as needed for recurrent cellulitis. -Communication placed with [facility] to ask for patient to be scheduled sometime at the end of the month for follow-up evaluation. If we are unable to coordinate this visit will have patient follow-up with myself at the podiatry office 06/28/2024. -Patient is expecting discharge to [facility]. Admission and Anticipated Discharge Date Admission Date: May 21, 2024 Subjective Patient seen resting comfortably in hospital bed. Denies issues or pain with the bilateral heel in the last 24 hours. Denies nausea vomiting fever chills. Bilateral heel dressings remain clean dry and intact. Heels remain elevated on pillow behind the legs and heel boots remain in place since time of last dressing change. Patient anticipating discharge to [facility] today for continued rehab as she has somewhat deconditioned and is having trouble bearing weight and ambulating. Physical Exam Physical Exam: Left foot: Unstageable pressure ulcer to the posterior plantar aspect of the heel: Dry stable eschar centrally. Small satellite wound persists but is superficial with healthy granular wound bed no active drainage or signs of local soft tissue infection. Satellite wound continues to decrease in size with encroaching epithelial tissue circumferentially. [place] discoloration surrounding skin from Betadine staining. Right foot: Stage II pressure ulcer posterior lateral heel: Encroaching epithelial tissue noted circumferentially. No undermining. Healthy granular wound bed. No active drainage. No signs of local soft tissue infection. Results & Data Results & Data Vital Signs (Past 12 Hours) Vital Signs Temp Pulse Resp BP Pulse Ox O2 Del Method 06/06/24 20:43 Room Air 06/06/24 19:20 36.4 C L 73 18 136/67 96 Room Air Coding Level of Care Code 30436 SUB INP/OBS CARE 06/25MIN Diagnoses Pressure injury of left heel, unstageable L89.620 Stage II pressure ulcer of right heel L89.612
[2024-06-07 08:43] LABS: BUN Creatinine Ratio 34.8 (10-20); Calcium 9.8 mg/dl (8.6-10.3); Magnesium 2.4 mg/dl (1.7-2.4); Potassium 4.5 mmol/L (3.5-5.1)
--- NOTE | 2024-06-07 10:18 | Nephrology Progress Note ---
Date of Service June 07, 2024 Assessment & Plan Admission and Anticipated Discharge Date Admission Date: May 21, 2024 Subjective Assessment & Plan (1) Acute renal failure superimposed on stage 4 chronic kidney disease: Plan: Stage one improving nonoliguric TREMAYNE on CKD 4. Baseline creatinine 2 as of September 2023 w/ 1.5 gm proteinuria. presented 05/21 w/ L diabetic foot infection and creatinine 2.8, reached karen of 2.4 on 05/22, then back to 2.9 as of 05/24 and plateau'd at about 3 for some time but then rising again and was 3.5 but Now down to 2.47 with ivfluids Calling this TREMAYNE for now in setting of infection; quite possible however that this is CKD progression. Rec: 1. I have Given benefit of doubt and use IVF last few days and BUn and Creat did come down after IVF. No more iv fluid 3 No Lasix or Lisinopril at discharge. with her obesity hard to assess fluid status. she can use lasix in future if she needs it but will not use HAYDEN/ARB ever again though 4 daily bmp while inpt -strict I/O to continue -no indication for acute dialysis at this moment. Also she categorically says she will never do dialysis which is a good decision. Stable for discharge from renal Standpoint. f/u Nephrology within 2 weeks. Volume status, impression of causes of worsening renal function, recommendations reviewed w/ Dr Felix. we are in agreement. Subjective Patient feels fine. denies N,v, CP, SOB. renal Labs better today than yesterday. making urine. Review of Systems Review of Systems: All systems reviewed & are unremarkable except as noted in Subjective Physical Exam Constitutional: well developed, well nourished, + frail appearing and cooperative; no acute distress Eyes: EOM intact bilaterally ENMT: Mouth: + dry oral mucous membranes Neck: no nuchal rigidity Respiratory: normal respiratory effort Auscultation: + diminished lung sounds (narayan BL bases) Cardiovascular: Rate/Rhythm: regular rate and regular rhythm Heart Sounds: + murmur Extremities: no edema Gastrointestinal (Abdomen): Inspection/Auscultation: normal bowel sounds Percussion/Palpation: abdomen soft; abdomen nontender Musculoskeletal: Extremities: strength 5/5 throughout Skin: no rashes, warm and dry Psychiatric: Orientation: alert and oriented x 3 Speech: normal rate/rhythm/volume of speech Results & Data Vital Signs (Past 12 Hours) Vital Signs Temp Pulse Pulse Resp BP Pulse Ox O2 Del Method 06/07/24 07:58 98 H 06/07/24 07:55 Room Air 06/07/24 07:48 36.7 C 64 18 131/86 98 Room Air
--- NOTE | 2024-06-07 14:46 | Pharmacy Report ---
Pharmacy Glycemic Short Note 2 - Date of Service June 07, 2024 - Glycemic Short BSG Results (Last 24 hours): 06/06/24 06/06/24 06/07/24 16:51 20:18 07:44 Glucose POC Glucose 104 H 115 H 116 H 06/07/24 06/07/24 07:49 11:39 Glucose 106 H POC Glucose 129 H OUTPATIENT ANTIDIABETIC REGIMEN: * Previously on glipizide 5 mg BID--> this was stopped outpatient HbA1c 9.1% 05/22/24 ASSESSMENT: 06/07/24: * Blood sugars reasonably well-controlled over past 48 hours. * Minor adjustments made yesterday. No changes anticipated to glycemic regimen today. * Patient awaiting discharge to SNF. 05/27 * Patient received a total of 63 units of insulin yesterday (35 units were basal). * Fasting BSG was 188mg/dL this morning, so the scale for HS Lantus has been adjusted (now will received 15 units of Lantus for BSG > 170 instead of > 200, etc) * BSGs were still above goal most of yesterday (235, 170, 174mg/dL), so bolus insulin parameters were tightened again today. The AM Lantus dose was also increased by ~10%. * Renal function slightly better than yesterday (SCr 3.01) and antibiotics changed to doxycycline and amoxicillin for left foot infection. 05/26 * Patient received a total of 60 units of insulin yesterday (35 units were basal) * Fasting BSG was in range this morning so basal insulin will remain the same (Lantus 25 units in the morning and Lantus scale at bedtime -0-15 units depending on BSG) * BSGs were above goal most of yesterday so CR was tightened yesterday. BSG reese to 235mg/dL at lunch today so CR tightened again today. * Patient with worsening renal function (SCr 3.13 today--baseline SCr is 2-1.2) and continues on daptomycin for and infection of the left foot. 05/24 * Patient is admitted with left heel wound, TREMAYNE on CKD --> SCr trending upward * Fasting 182-210 mg/dL the past three days- will initiate lantus using adjusted body weight stress of 1- 2 * Patient previously reported adequate control on glipizide per diabetes education note, will trial tightened parameters as previous has resulted in prandial BSGs in the 200s PLAN FOR INPATIENT GLYCEMIC CONTROL: * Basal insulin * Lantus 30 units SC daily * Bolus insulin * NovoLog per scale ACHS or Q6hrs while NPO * Goal Range: Low 120 mg/dL - High 150 mg/dL * Correction Factor: 25 mg/dL/unit * Nutritional / Prandial insulin per carb ratio of 1 unit per 5 grams CHO consumed
--- NOTE | 2024-06-07 17:29 | Hospitalist Progress Note ---
Date of Service June 07, 2024 Assessment & Plan (1) Diabetic infection of left foot: (2) Acute renal failure superimposed on stage 3 chronic kidney disease: (3) Pressure injury of left heel, unstageable: (4) Stage II pressure ulcer of right heel: (5) Type 2 diabetes mellitus: (6) Ambulatory dysfunction: (7) Persistent atrial fibrillation: (8) On warfarin therapy: (9) Acute on chronic diastolic (congestive) heart failure: Plan (1) Diabetic infection of left foot: (2) Acute renal failure superimposed on stage 3 chronic kidney disease: (3) Pressure injury of left heel, unstageable: (4) Stage II pressure ulcer of right heel: (5) Type 2 diabetes mellitus: (6) Ambulatory dysfunction: (7) Persistent atrial fibrillation: (8) On warfarin therapy: (9) Acute on chronic diastolic (congestive) heart failure: Plan Ms. Lazar is an 89 woman with history of DM, HF, Afib, htn, DM who was admitted due to infected left pressure ulcer of the heel and diabetic foot ulcer. Patient was evaluated by podiatry who did bedside debridement of left heel on with notable improvement. Patient encouraged to off load. Completed course of oral antibiotics. #Left heel pressure ulcer POA s/p bedside debridement on 05/23 Patient presented to the hospital for evaluation Of wound at her left heel On examination; had black eschar with foul smelling discharge and surrounding necrotic tissue No leukocytosis CT of bilateral lower extremity was done; no underlying drainable collection. Ankle MRI showed a skin defect at the heel region with subcutaneous edema espinoza ggesting cellulitis; no suggestion of osteomyelitis. ESR elevated to 120, CRP elevated to 7.83 Superficial wound culture growing MSSA and Enterococcus faecalis Deep wound culture from bedside debridement on 05/23- posit for MSSA On amoxicillin and doxycycline - finished abx course Per podiatry - -Continue offloading bilateral heel at all times while at rest with either pillows behind calves suspending the heel or in heel offloading boots. - Continue once daily dressing changes with Betadine wet-to-dry dressing to the bilateral heel wound until follow-up in the wound center. - Patient encouraged to follow-up with the wound center within 1 month of discharge for reevaluation of bilateral heel wounds. - Okay to continue weightbearing bilateral in hospital socks which she reports is her standard footwear at home. Use walker or other support at all times while weightbearing. Plan for SNF #TREMAYNE on CKD Baseline creatinine of 2-2.2 Presented with creatinine of 2.8, status post hydration Continuing Lasix. Hold lisinopril Resumed furosemide, d/c on 40mg lasix discontinued fenofibrate - seen by nephrology - Cr stable ~3 - then Cr 3.5, held lasix, cont. to monitor - nephrology reconsulted - lokelma given and NS Cr back to 2.9 on (06/04/2023) Discussed w/ nephrology on (06/06/23) cont to hold lasix on DC current Cr 2.5 NEPHRO D/C NOTE - hold lasix at dc as above -hold lisinopril at d/c >fenofibrate contraindicated in CKD 4 and would stop this permanently; defer to PCP and/or cardiology for alternative hypertriglyceride medications in renal failure >bmp weekly at rehab/SNF and contact [facility] nephrology Dr Garcia if concerns >bmp at PCP hospital d/c visit >bmp, cbc/d, ACR, UACM to be ordered by neph nurse and done no more than 72 hr before hospital d/c visit w/ Dr Garcia 3 weeks AFTER rehab/SNF d/c or 6 wks after hospital d/c, whichever is first #Persistent atrial fibrillation Continue on Cardizem digoxin and Coumadin Echocardiogram shows EF of 60 to 65%, left atrium severely dilated #Type 2 diabetes mellitus stop taking oral agents couple of months ago as per PCP instructions Continue on insulin while inpt Follow-up with PCP for long-term management as HbA1c is 9% Discussed about resuming glipizide which she was taking prior to stopping it couple of months ago. community health educator also consulted PCP updated #Hyperlipidemia- held pravastatin while patient on daptomycin #Goutcontinue on allopurinol #Hypertensioncontinue on metoprolol. Hold lisinopril - lisinopril to be stopped altogether on DC Full code DVT prophylaxis Coumadin Admission and Anticipated Discharge Date Admission Date: May 21, 2024 Subjective Pt seen in follow up Seen by podiatry Also seen by nephrology for TREMAYNE on CKD - Dc recs provided and reviewed with the pt. However Cr up at 3.5 , BUN also elevated - discussed w/ nephrology - No plan for dialysis. received lokelma and IVF. Now Cr down 2.5. Stop lasix on DC Currently laying in bed in NAD Overall pt feels well. Denies any chest pain, shortness of breath, palpitations, abd.pain, n/v Updated pt's PCP earlier - she will follow up on pt's DM needs and other med issues Discussed with nephrology yesterday - continue to hold lasix on DC CM involved in DC, hopefully DC tmrw Review of Systems Review of Systems: All systems reviewed & are unremarkable except as noted in Subjective Physical Exam Physical Exam: Constitutional: obese elderly F in NAD HEENT: NC/AT, EOMI, Mucous membranes moist. Lungs: Clear to auscultation, decreased, no wheezes rales or rhonchi CV: regular Abdomen: Soft, nontender, nondistended Extremities: No significant LE edema, dressings on bilateral heels dry and intact Neuro: awake, alert, oriented, answers appropriately, no facial asymmetry, moves extremities Results & Data Results & Data Vital Signs (Past 12 Hours) Vital Signs Temp Pulse Pulse Resp BP Pulse Ox O2 Del Method 06/07/24 15:39 36.5 C 78 18 131/69 98 Room Air 06/07/24 07:58 98 H 06/07/24 07:55 Room Air 06/07/24 07:48 36.7 C 64 18 131/86 98 Room Air Laboratory Results 06/07/24 06/07/24 06/07/24 Range/Units 16:44 11:39 07:49 Sodium 139 (136-145) mmol/L Potassium 4.5 (3.5-5.1) mmol/L Chloride 107 (98-107) mmol/L Carbon Dioxide 25 (21-32) mmol/L Anion Gap 7 (3-11) BUN 86 H (6-23) mg/dl Creatinine 2.47 H D (0.6-1.2) mg/dl Est Cr Clr Drug Dosing 20.0 ml/min eGFR 18.31 BUN/Creatinine Ratio 34.8 H (10-20) Glucose 106 H (70-99(Fasting)) mg/dl POC Glucose 78 129 H (70-99) mg/dl Calcium 9.8 (8.6-10.3) mg/dl Magnesium 2.4 (1.7-2.4) mg/dl 06/07/24 06/06/24 Range/Units 07:44 20:18 Sodium (136-145) mmol/L Potassium (3.5-5.1) mmol/L Chloride (98-107) mmol/L Carbon Dioxide (21-32) mmol/L Anion Gap (3-11) BUN (6-23) mg/dl Creatinine (0.6-1.2) mg/dl Est Cr Clr Drug Dosing ml/min eGFR BUN/Creatinine Ratio (10-20) Glucose (70-99(Fasting)) mg/dl POC Glucose 116 H 115 H (70-99) mg/dl Calcium (8.6-10.3) mg/dl Magnesium (1.7-2.4) mg/dl Medications Administered Current Inpatient Medications Acetaminophen (Acetaminophen 325 Mg Tab) 650 mg PO Q4H PRN PRN Reason: Pain or Fever Stop: 06/20/24 13:08 Last Admin: 06/06/24 08:54 Dose: 650 mg Acetaminophen (Acetaminophen 500 Mg Tab) 500 mg PO [facility] Stop: 06/20/24 20:59 Last Admin: 06/06/24 21:22 Dose: 500 mg Allopurinol (Allopurinol 300 Mg Tab) 300 mg PO [facility] Stop: 06/21/24 08:59 Last Admin: 06/07/24 08:01 Dose: 300 mg Aspirin (Aspirin 81 Mg Ectab) 81 mg PO [facility] Stop: 06/23/24 20:59 Last Admin: 06/06/24 21:20 Dose: 81 mg Cyanocobalamin (Cyanocobalamin (B-12) 2,500 Mcg Tablet) 2,500 mcg PO [facility] Stop: 06/20/24 20:59 Last Admin: 06/06/24 21:20 Dose: 2,500 mcg Dextrose (Dextrose 50% 50 Ml Syringe) 25 - 50 ml IV UD PRN; Protocol PRN Reason: Hypoglycemia Protocol Stop: 06/20/24 13:16 Digoxin (Digoxin 0.125 Mg Tab) 0.125 mg PO TuThSa@0900 [facility] Stop: 06/23/24 08:59 Last Admin: 06/07/24 07:58 Dose: 0.125 mg Diltiazem HCl (Diltiazem Hcl 120 Mg Capcr) 120 mg PO [facility] Stop: 06/21/24 08:59 Last Admin: 06/07/24 08:01 Dose: 120 mg Diphenhydramine HCl (Diphenhydramine Capsule 25 Mg Cap) 25 mg PO HS [facility] Stop: 06/20/24 20:59 Last Admin: 06/06/24 21:22 Dose: 25 mg Famotidine (Famotidine 20 Mg Tab) 20 mg PO QAM [facility] Stop: 06/21/24 08:59 Last Admin: 06/07/24 09:14 Dose: 20 mg Glucagon (Glucagon For Inj 1 Mg Vial) 1 mg SQ UD PRN; Protocol PRN Reason: Hypoglycemia Protocol Stop: 06/20/24 13:16 Glucose (Glucose 40% Gel 15 Gm Tube) 15 - 30 gm PO UD PRN; Protocol PRN Reason: Hypoglycemia Protocol Stop: 06/20/24 13:16 Glucose (Glucose 10 Tab/Tube) 4 - 8 tab PO UD PRN; Protocol PRN Reason: Hypoglycemia Protocol Stop: 06/20/24 13:16 Insulin Aspart (Insulin Aspart Per Unit Charge) 0 units SC ACHS [facility] Stop: 06/20/24 16:29 Last Admin: 06/07/24 12:28 Dose: 8 units Insulin Glargine (Lantus Per Unit Charge) 30 units SC DAILY [facility] Stop: 06/27/24 08:59 Last Admin: 06/07/24 08:24 Dose: 30 units Lactic Acid (Ammonium Lactate 12% Lotion 225 Gm Btl) 1 gm EXT BID [facility] Stop: 06/27/24 20:59 Last Admin: 06/07/24 08:01 Dose: 1 gm Menthol (Cough Drop (Sugar Free) Freya 24 Freya/1 Box) 1 freya BUCCAL PRN PRN PRN Reason: Sore Throat Stop: 06/28/24 20:02 Last Admin: 05/29/24 20:20 Dose: 1 freya Metoprolol Succinate (Metoprolol Succ 50mg Ext Rel Tab) 50 mg PO QAM [facility] Stop: 06/21/24 08:59 Last Admin: 06/07/24 08:01 Dose: 50 mg Miconazole Nitrate (Miconazole Nitrate Powder 85 Gm) 1 appln EXT BID [facility] Stop: 06/23/24 00:59 Last Admin: 06/07/24 08:04 Dose: 1 appln Miscellaneous Information (Pharmacy Glycemic Mgmt Consult) 1 each N/A UD PRN; Protocol PRN Reason: Consult Stop: 06/23/24 12:33 Multivitamins/Minerals (Cerovite Adv Formula Tab) 1 tab PO BID [facility] Stop: 06/20/24 20:59 Last Admin: 06/07/24 07:58 Dose: 1 tab Nystatin (Nystatin Powder 15gm Btl) 1 appln EXT TID PRN PRN Reason: Other Stop: 06/20/24 12:52 Polyethylene Glycol (Polyethylene (Miralax) 17 Gm Pack) 17 gm PO DAILY [facility] Stop: 06/22/24 09:44 Last Admin: 06/07/24 08:32 Dose: Not Given Pravastatin Sodium (Pravastatin Sod 40 Mg Tab) 40 mg PO HS [facility] Stop: 06/20/24 20:59 Last Admin: 06/06/24 21:20 Dose: 40 mg Warfarin Sodium (Warfarin Sod 6 Mg Tab) 6 mg PO DAILY@1600 [facility] Stop: 06/28/24 15:59 Last Admin: 06/07/24 16:26 Dose: 6 mg
[2024-06-08 08:30] LABS: Hematocrit (blood only) 28.1 % (37.0-47.0); Hemoglobin 8.9 g/dl (12.0-16.0); Mean Corpuscular Hemoglobin 29.4 pg (25.0-34.0); Mean Corpuscular Hgb Conc 31.7 g/dL (32.0-36.0); Mean Corpuscular Volume 92.7 fL (80.0-100.0); Mean Platelet Volume 10.6 fL (9.4-12.4); Platelet Count 259 K/uL (130-400); RDW Coefficient of Variation 16.8 % (11.5-14.5); Red Blood Count 3.03 M/uL (4.20-5.40); White Blood Count 7.13 K/ul (4.8-10.8)
[2024-06-08 08:42] LABS: BUN Creatinine Ratio 34.6 (10-20); Calcium 10.2 mg/dl (8.6-10.3); Potassium 4.4 mmol/L (3.5-5.1)
[2024-06-08 08:46] LABS: INR 2.2 (0.9-1.1); Prothrombin Time 22.4 Seconds (9.0-12.0)
--- NOTE | 2024-06-08 10:37 | Nephrology Progress Note ---
Date of Service June 08, 2024 Assessment & Plan Admission and Anticipated Discharge Date Admission Date: May 21, 2024 Subjective Assessment & Plan (1) Acute renal failure superimposed on stage 4 chronic kidney disease: Plan: Stage one improving nonoliguric TREMAYNE on CKD 4. Baseline creatinine 2 as of September 2023 w/ 1.5 gm proteinuria. presented 05/21 w/ L diabetic foot infection and creatinine 2.8, reached karen of 2.4 on 05/22, then back to 2.9 as of 05/24 and plateau'd at about 3 for some time but then rising again and was 3.5 but Now down to 2.14 with ivfluids Calling this TREMAYNE for now in setting of infection Rec: 1. I have Given benefit of doubt and use IVF for few days and BUn and Creat did come down after IVF. Now down to baseline. No more iv fluid 3 No Lasix or Lisinopril at discharge. with her obesity hard to assess fluid status. she can use lasix in future if she needs it but will not use HAYDEN/ARB ever again though 4 daily bmp while inpt. will sign off. -no indication for acute dialysis at this moment. Also she categorically says she will never do dialysis which is a good decision. Stable for discharge from renal Standpoint. f/u Nephrology within 2 weeks. Subjective Patient feels fine. denies N,v, CP, SOB. renal Labs better today than yesterday. making urine. Review of Systems Review of Systems: All systems reviewed & are unremarkable except as noted in Subjective Physical Exam Constitutional: well developed, well nourished, + frail appearing and cooperative; no acute distress Eyes: EOM intact bilaterally ENMT: Mouth: + dry oral mucous membranes Neck: no nuchal rigidity Respiratory: normal respiratory effort Auscultation: + diminished lung sounds (narayan BL bases) Cardiovascular: Rate/Rhythm: regular rate and regular rhythm Heart Sounds: + murmur Extremities: no edema Gastrointestinal (Abdomen): Inspection/Auscultation: normal bowel sounds Percussion/Palpation: abdomen soft; abdomen nontender Musculoskeletal: Extremities: strength 5/5 throughout Skin: no rashes, warm and dry Psychiatric: Orientation: alert and oriented x 3 Speech: normal rate/rhythm/volume of speech Results & Data Vital Signs (Past 12 Hours) Vital Signs Temp Pulse Resp BP Pulse Ox O2 Del Method 06/08/24 07:47 36.4 C L 93 H 16 126/78 98 Room Air
[2024-06-08 12:13] VITALS: RESP 17; TEMP 97.7; O2SAT 97
[2024-06-08 12:30] VITALS: BP 131/69; PULSE 75
[2024-06-08] MEDS: cefTRIAXone SODIUM 2,000 MG/50 ML BAG IV STA (12:39)
--- NOTE | 2024-06-08 13:14 | Discharge Summary ---
Discharge Summary Date of Service June 08, 2024 Principal Dx & Hospital Course #1 = Principal Diagnosis (1) Diabetic infection of left foot: (2) Acute renal failure superimposed on stage 3 chronic kidney disease: (3) Pressure injury of left heel, unstageable: (4) Stage II pressure ulcer of right heel: (5) Type 2 diabetes mellitus: (6) Ambulatory dysfunction: (7) Persistent atrial fibrillation: (8) On warfarin therapy: (9) Acute on chronic diastolic (congestive) heart failure: Plan Ms. Lazar is an 89 woman with PMHx significant for DM type II, dyslipidemia, persistent atrial fibrillation on Coumadin, HTN, CKD stage III, gout, history of bilateral total knee replacements, history of breast cancer s/p bilateral mastectomy who was admitted due to cellulitis in the setting of infected ulcers of the left heel. Patient was evaluated by podiatry who did a bedside debridement of the left heel on 05/23/24 with notable improvement Left heel pressure ulcer POA s/p bedside debridement on 05/23 Patient presented to the hospital for evaluation of wound at her left heel On examination; had black eschar with foul smelling discharge and surrounding necrotic tissue No leukocytosis X-ray of the left foot noting cellulitis CT of bilateral lower extremity also noting cellulitis but no underlying drainable collection. Ankle MRI showed a skin defect at the heel region with subcutaneous edema suggesting cellulitis; no suggestion of osteomyelitis. ESR elevated to 120, CRP elevated to 7.83 Superficial wound culture growing MSSA and Enterococcus faecalis Deep wound culture from bedside debridement on 05/23 grew MSSA Treated with amoxicillin and doxycycline and completed a course of antibiotics while in the hospital. On the day of discharge, patient with noted recurrent erythema to the left lower extremity. Given a dose of IV Rocephin and discharged with doxycycline as well as a course of probiotics. Podiatry Dr Herbert Regalado gave the following recommendations for discharge: "Continue offloading bilateral heel at all times while at rest with either pillows behind calves suspending the heel or in heel offloading boots... Continue once daily dressing changes with Betadine wet-to-dry dressing to the bilateral heel wound until follow-up...Avoid any occlusive dressing to the left heel wound. Please dress with only gauze and gauze roll after Betadine soaked dressing...Okay to continue weightbearing bilateral in hospital socks which she reports is her standard footwear at home. Use walker or other support at all times while weightbearing. Recommend continued close monitoring for any signs of local soft tissue infection and would have a low threshold for reinstituting antibiotics as needed for recurrent cellulitis...Communication placed with wound center to ask for patient to be scheduled sometime at the end of the month for follow-up evaluation. If we are unable to coordinate this visit will have patient follow-up with myself at the podiatry office 06/28/2024..." Please ensure close follow-up with podiatry and wound care clinic after discharge. Close PCP follow-up as well Patient discharged to long-term care at [facility]. TREMAYNE on CKD Stage 4 Baseline creatinine of 2-2.2, pt with cr as high as 3.5 during admission Held nephrotoxic medications such as lasix and lisinopril Nephrology was consulted, recommended/stated the following: - Noted no acute indication for dialysis at this time "NEPHRO D/C NOTE - hold lasix at dc as above -hold lisinopril at d/c >fenofibrate contraindicated in CKD 4 and would stop this permanently; defer to PCP and/or cardiology for alternative hypertriglyceride medications in renal failure >bmp weekly at rehab/SNF and contact [facility] nephrology Dr Garcia if concerns >bmp at PCP hospital d/c visit >bmp, cbc/d, ACR, UACM to be ordered by neph nurse and done no more than 72 hr before hospital d/c visit w/ Dr Garcia 3 weeks AFTER rehab/SNF d/c or 6 wks after hospital d/c, whichever is first" Creatinine 2.14 on discharge Patient's Lasix and lisinopril discontinued at discharge. Fenofibrate also held until PCP follow-up as well as cardiology follow-up for alternative as recommended. Please ensure close follow-up with nephrology after discharge. Persistent atrial fibrillation Echocardiogram shows EF of 60 to 65%, left atrium severely dilated Continue on Cardizem, digoxin and Coumadin Coumadin dose changed to 6mg daily, INR 2.2 on discharge Cardiology follow-up after discharge Type 2 diabetes mellitus insulin sliding scale while hospitalized Per patient she had discontinued home oral agents Follow-up with PCP for long-term management as HbA1c is 9% Discussed about resuming glipizide which she was taking prior to stopping it couple of months ago. development mechanic also consulted Prior hospitalist updated PCP close PCP follow-up after discharge. Hyperlipidemia- held pravastatin while patient on daptomycin, Can resume as antibiotics completed. Fenofibrate on hold as indicated by nephrology above. Goutcontinue on allopurinol Hypertensioncontinue on metoprolol. lisinopril discontinued. Continue other home meds as ordered. Notes For Next Care Provider Please closely follow/monitor wound on left lower extremity. Per podiatry recommendations, low threshold to resume antibiotics as needed. Patient with noted erythema on the day of discharge. Discharged with p.o. doxycycline once more with a probiotic. Please ensure close follow-up and monitoring by the wound clinic as well as podiatry after discharge. Please ensure close follow-up with nephrology after discharge. Please ensure close follow up with cardiology after discharge Medication Changes From Visit doxycycline 100 mg twice daily with a probiotic for an additional 10 days warfarin dose changed to 6 mg daily Per nephrology: discontinue Lasix, discontinue lisinopril as well as fenofibrate Admission HPI Per Admitting Provider 89F pmh DM, now controlled, HF, Afib, htn, DM who presents to the ED for worsening LE wounds. Patient is accompanied by family who assists with history. States that she has a history of severe DM with diabetic wounds, most recently exacerbation 01/21 at which time she saw wound care who recommended incision and drainage but they declined and wounds healed with abx. This time patient states her DM has been significantly improved and she has been removed from her DM medications by her PCP, but in the last 1 week her chronic wounds have been worsening, specifically with increased induration, "boils" which have began to slough somewhat. Also with significant worsening heel wound on the L as well as some necrotic ulcers on the tips of the metatarsals. No current complaints though patient does have significant neuropathy causing limitation of sensation in the LE. No fever, chills, pain, no vomiting diarrhea. Patient is largely immobile due to weakness. Admission Exam Per Admitting Provider Constitutional: WD/WN, vitals as above Respiratory: normal respiratory effort, lungs clear to auscultation Skin: The lower shins have bilateral erythematous, patchy wounds resembling chronic venous stasis wounds. There is a significant necrotic appearing superficial wound on the L heel, with two foci. One is approximately 5x5cm but does not appear to delve to the bone. The other is approximately 1x1 and appears more acutely infectious with yellow wound margins. There are several small foci of necrotic tissue on the nail beds of the metatarsals, with the R 1st toenail appearing grossly yellow, difficult to differentiate necrosis vs. fungal dx. Psychiatric: A+Ox3, euthymic affect Discharge Exam General: Alert, orientedx3. No acute distress Skin: LLE with noted erythema and warmth to anterior delgado Psych: Appropriate mood and affect Neuro: difficulty with movements in the bed HEENT: NC/AT CV: RRR, +murmur Resp: Breath sounds clear bilaterally, no increased effort of breathing Abdomen: Soft, nontender Extremities: LLE with noted erythema and warmth to anterior dlegado Updated Medication List Medication Instructions Recorded Confirmed Type allopurinol 300 mg tablet 300 mg PO QAM 08/15/22 05/21/24 History apple cider vinegar 500 mg tablet 500 mg PO PM 08/15/22 05/21/24 History aspirin 81 mg tablet,delayed 81 mg PO HS 08/15/22 05/21/24 History release cholecalciferol (vitamin D3) 125 10,000 unit PO QPM 08/15/22 05/21/24 History mcg (5,000 unit) tablet (Vitamin D3) cyanocobalamin (vitamin B-12) 2,500 mcg PO HS 08/15/22 05/21/24 History 1,000 mcg tablet (Vitamin B-12) diltiazem HCl 120 mg 120 mg PO QAM 08/15/22 05/21/24 History capsule,extended release 24 hr pravastatin 40 mg tablet 40 mg PO HS 08/15/22 05/21/24 History diphenhydramine 25 2 tab PO HS 11/16/22 05/21/24 History mg-acetaminophen 500 mg tablet (Tylenol PM Extra Strength) vit C 250 mg-vit E 90 mg-zinc 40 1 tab PO BID 11/16/22 05/21/24 History mg-copper 1 [id number] capsule (PreserVision AREDS-2) digoxin 250 mcg (0.25 mg) tablet 125 mcg PO UD 01/05/23 05/21/24 History Pepcid 1 tab PO QAM 05/21/24 05/21/24 History fenofibrate nanocrystallized 48 mg 48 mg PO QAM 05/21/24 05/21/24 History tablet loratadine 10 mg tablet (Claritin) 10 mg PO DAILY 05/21/24 05/21/24 History metoprolol succinate 50 mg 50 mg PO QAM 05/21/24 05/21/24 History tablet,extended release 24 hr nystatin 100,000 unit/gram topical 1 applic topical TID PRN Other 05/21/24 05/21/24 History powder glipizide 5 mg tablet 5 mg PO BID 05/22/24 05/22/24 History Lactobacillus acidophilus 1,200 mg PO DAILY #30 caps 06/08/24 Rx doxycycline hyclate 100 mg tablet 100 mg PO BID #20 tabs 06/08/24 Rx warfarin 6 mg tablet 6 mg PO DAILY@1600 #30 tabs 06/08/24 Rx Hospital Stay Data Consultations 05/21/24 12:23 ED Decision to Admit Stat 05/22/24 08:02 Consult Podiatry Routine 05/26/24 11:03 Consult Nephrology Routine 06/04/24 10:34 Consult Nephrology Routine Diagnostic Imagining Performed 05/21/24 13:12 CT tib/fib LT wo con Routine CT tib/fib RT wo con Routine 05/22/24 10:03 MR ankle LT wo con Routine Foot X-Ray 05/21/24 11:05 EXAM: Radiographs of the Left Foot Complete 3 Views INDICATION: Open wound. TECHNIQUE: Frontal, lateral and oblique views of the left foot. COMPARISON: No relevant prior studies available. FINDINGS: Bones/joints: The bones are demineralized. There has been resection of the first distal phalanx and portions of the first proximal phalanx. Mild to moderate diffuse joint space narrowing. No erosion or fracture. Soft tissues: Diffuse moderate soft tissue swelling noted. There is a bandage over the heel. Atherosclerotic calcification noted. No soft tissue gas collection or radiopaque foreign body within the patient. IMPRESSION: No plain radiographic evidence of osteomyelitis. Impression severe cellulitis. Bandaging over a soft tissue wound at the heel. ACT 112: Negative or not required by law. Electronically signed by Beulah Catalan 05-21-2024 11:[address] 05/21/24 13:12 EXAM: CT Left Lower Extremity Without Intravenous Contrast Tibia and Fibula INDICATION: Assess for osteomyelitis. TECHNIQUE: Axial computed tomography images of the left tibia and fibula without intravenous contrast. Sagittal and coronal reformatted images were created and reviewed. This CT exam was performed using one or more of the following dose reduction techniques: automated exposure control, adjustment of the mA and/or kV according to patient size, and/or use of iterative reconstruction technique. COMPARISON: No relevant prior studies available. FINDINGS: Limitations: Significant metallic streak artifact from prosthesis limits assessment of the surrounding soft tissues. Bones/joints: There is a knee joint effusion. Knee prosthesis components well-seated. No fracture. No periosteal reaction or erosion noted. The bones are generally demineralized. Soft tissues: Severe circumferential subcutaneous and superficial fascial edema noted progressively increasing from the knee to the foot. There is a small amount of disorganized fluid posterior medial to the proximal femur measuring roughly 2.2 x 1.3 x 3.5 cm. The collection is not liquefied or organized. No associated gas. There is no organized or drainable collection. No soft tissue gas. Vasculature: Atherosclerosis. There are multiple calcified superficial varices medial thigh. IMPRESSION: 1. Extensive cellulitis. No organized or drainable abscess. 2. No evidence of osteomyelitis. ACT 112: Negative or not required by law. Electronically signed by Beulah Catalan 05-21-2024 2:[address] 05/21/24 13:12 EXAM: CT Left Lower Extremity Without Intravenous Contrast Tibia and Fibula INDICATION: Assess for osteomyelitis. TECHNIQUE: Axial computed tomography images of the left tibia and fibula without intravenous contrast. Sagittal and coronal reformatted images were created and reviewed. This CT exam was performed using one or more of the following dose reduction techniques: automated exposure control, adjustment of the mA and/or kV according to patient size, and/or use of iterative reconstruction technique. COMPARISON: No relevant prior studies available. FINDINGS: Limitations: Metallic streak artifact from the knee prosthesis limits assessment of immediately surrounding structures. Bones/joints: The bones are demineralized. Allowing for artifact, no periosteal reaction, fracture or erosion. Soft tissues: There is diffuse moderate subcutaneous and superficial fascial edema and generalized cutaneous thickening progressively increasing from the knee to the foot. There is prominent induration along the lateral aspect of the tibia along the mid to distal femoral stem measuring 9.2 cm long by 3.0 cm transverse by approximately 1.2 cm AP. There is no organized or drainable collection. IMPRESSION: 1. Allowing for artifact from the knee arthroplasty, no evidence of right tibial/fibular osteomyelitis. 2. Soft tissue induration noted along the anterior lateral aspect of the tibia at the level of the mid and distal arthroplasty components. No organized or drainable collection. 3. Generalized cellulitis. ACT 112: Negative or not required by law. Electronically signed by Hossein Beulah 05-21-2024 2:17 PM Ankle MRI 05/22/24 10:03 EXAM: MR ankle LT wo con CLINICAL HISTORY: lt heel wound x1wk+, r/o osteo cellulitis. TECHNIQUE: Multiplanar multi-sequential MRI of left ankle joint was performed without IV contrast administration. COMPARISON: CT left tibia and fibula dated 05/21/2024. FINDINGS: Bones: There are foci of bone marrow edema is seen at the lateral ankle compartment in the articular aspects of the distal fibula and the opposing talus body lateral aspect suggesting bone marrow contusions. Similarly, foci of bone marrow edema are seen in the medial ankle compartment subarticular region and in the tarsal bones with inter-tarsal articular degenerative changes. Normal alignment of the tibia, fibula, talus, calcaneus, navicular, cuboid, cuneiforms, and metatarsals. No fractures or dislocations. No lytic or sclerotic lesions. Joints: Degenerative changes of the tibiotalar and inter-tarsal joints. The subtalar joint is presreved. Minimal ankle joint effusion is seen. Articular surfaces are smooth without erosions or osteophyte formation. Compartmental tendons: Mild fluid is seen around the tibialis posterior and peroneus longus tendons. The flexor digitorum, and flexor hallucis longus are unremarkable. The extensor digitorum, and extensor hallucis longus are unremarkable. The peroneus brevis isunremarkable. The Achilles tendon is thickened with a high intrasubstance signal in the distal segment with pre-Achilles fat and subcutaneous edema. Sinus tarsi and plantar fascia: The sinus tarsi are unremarkable. The plantar fascia is mildly thickened with overlying subcutaneous edema and calcaneal bone marrow edema at the attachment. Ligaments: Mild high signal with thickening of the anterior and posterior talofibular ligaments is seen with surrounding edema and mild fluid noted. The deltoid ligament is intact. The calcaneofibular ligament is intact. The intertarsal ligaments are unremarkable. The Calcaneocuboid and calcaneonavicular ligament are intact. Intact, intertarsal ligaments. Intact cuneometatarsal ligaments. Intact Lisfranc ligament. Muscles: Normal appearance of the surrounding musculature. No muscle atrophy or abnormal signal changes. Soft Tissues: There is skin defect at the heel region with subcutaneous edema signal, the related calcaneus bone signal is within normal. Diffuse subcutaneous soft tissue edema is seen around the ankle joint. The soft tissues at the distal leg, around the ankle, and foot are unremarkable. IMPRESSION: 1. There is a skin defect at the heel region with subcutaneous edema, suggesting cellulitis. The related calcaneus bone signal is within normal with no features of osteomyelitis. 2. Foci of bone marrow edema at the medial and lateral ankle compartment in the articular aspects and the opposing talus body suggest bone marrow contusions. 3. Degenerative changes of the tibiotalar and inter-tarsal joints with foci of bone marrow edema. 4. Diffuse subcutaneous soft tissue edema is seen around the ankle joint. 5. Achilles tendinopathy with retrocalcanel bursal effusion. 6. Anterior and posterior talofibular sprain changes. 7. Mild tibialis posterior and peroneus longus tenosynovitis. 8. Minimal ankle joint effusion. 9. The overall findings appear unchanged as compared to the prior CT examination, the present MRI shows further soft tissue changes assessment as described above. Electronically signed by Raysa Moffett 05-22-2024 13:45 PM Chest X-Ray 06/04/24 11:41 XR chest 1V portable CLINICAL HISTORY: edema and to assess CHF COMPARISON STUDY: No previous studies for comparison. FINDINGS: Lung volumes are normal. There is no pneumothorax or pleural effusion. The heart is moderately enlarged. There is no radiographic evidence for pulmonary edema. Mild left midlung opacities favor atelectasis. Focal contour abnormality of the mid descending thoracic aorta is present. IMPRESSION: 1. No acute cardiopulmonary findings. 2. Moderate cardiomegaly. No radiographic evidence for pulmonary edema. 3. Focal contour abnormality of the mid descending thoracic aorta. This could be due to an aneurysm or tortuosity. CTA of the chest could be obtained for further evaluation. 4. Linear left midlung densities suggestive atelectasis. ACT 112: Negative or not required by law. Electronically signed by: Paul Emerson M.D. 06/04/2024 1:15 PM Discharge Instructions Given to Patient (Per Discharging Provider) Angela, You were admitted and treated for an infection in your lower extremity. We are discharging you home with an additional 10 days of antibiotics with a probiotic given the recurrence of redness in your left lower extremity. Please keep close follow-up with the wound clinic after discharge as well as your signing teacher. You were also seen by the network systems operator who recommends that you stop taking your home Lasix and lisinopril. They would like to follow-up with you in about 2 weeks. Please also keep close follow up with your primary care provider after discharge. Please do not hesitate to come back to the emergency room if your symptoms worsen or return. It was a pleasure taking care of you while you were here. Total Time Total Time Spent Total Time Spent (In Minutes): 65
== END 2024-06-08 14:34 | DRG 622 ==
LOC: ED 10:41 → SUATTDRO 14:21 → 2E 14:21 → 3N 05-25 16:37

== ENCOUNTER 2024-11-18 11:19 | Inpatient (IN) ==
--- NOTE | 2024-11-18 11:54 | Emergency Department Note ---
Impression & Plan Hypoxia, Infection due to human metapneumovirus (hMPV) ED Provider Note Provider: Theodore Noland MD CHIEF COMPLAINT: Hypoxic HISTORY OF PRESENT ILLNESS: Patient is a 89-year-old female history of diabetes, left heel and sacral wounds, CKD, hypertension, diastolic dysfunction, A-fib on warfarin presenting here today referred from wound clinic. There for wound follow-up and she states that wounds continue to heal. Denies feeling that ill recently but family have been ill with a cough or cold the last several days. She denies significant cough or sore throat or fevers. Denies chest pain or feeling short of breath. States that she wants to go home. Was noted to be in the mid 80s on room air at wound care and received a DuoNeb and sent here for further evaluation as she does not use oxygen. States from prior discharge she had nebulizer and seen use it once yesterday. States she did this because her daughter thought she needed it but she states she did not feel short of breath. No history of smoking reported or asthma. States he has some chronic swelling of her legs but this is not significantly worsened. No falls. Did receive DuoNeb with EMS prior to arrival. Patient states she is anxious to go home. PAST MEDICAL HISTORY: As noted above MEDICATIONS: Reviewed home medications includes warfarin and includes warfarin SOCIAL HISTORY: Non-smoker, lives with son PHYSICAL EXAM: GENERAL: alert and oriented in no acute distress on stretcher Head: normocephalic and atraumatic EYES: No injection, discharge or icterus. EOMI. NECK: Trachea midline. ENT: Mucous membranes pink and moist. LUNGS: Airway patent. No retractions. Breath sounds slight expiratory wheeze HEART: Irregular tachycardic rate and rhythm. No chest wall tenderness ABDOMEN: Soft and non-tender, without guarding or rebound. Stable pelvis SKIN: Acyanotic, warm, dry, with a left heel wound and a sacral wound. Pictures from wound care today noted and in wound care notes EXTREMITIES: Without tenderness 1+ edema of the lower extremities the left heel which is wrapped for wound and bilateral foam booties in place. NEUROLOGICAL: No focal deficits. No aphasia. No facial droop or slurred speech. EK beats per in atrial fibrillation without acute ST segment elevation some nonspecific ST changes (question digoxin effect) CONTINUOUS CARDIAC MONITORING: was ordered and showed a heart rate of 90s to 110s bpm in A-fib Patient's laboratory studies and imaging reviewed. Differential includes Reactive airway disease, pneumonia, pneumothorax, COPD, CHF, infections, cardiac ischemia, pulmonary embolism, musculoskeletal, gastrointestinal, as well as other pathologies. IMPRESSION/MEDICAL DECISION MAKING: Initial oxygen year in the low 90s. Patient with some swelling of the lower leg she states more chronic. Maybe a slight wheeze and given a small additional DuoNeb here. Anticoagulated and INR checked but this lower suspicion for PE. Chest x-ray completed as well as lab work to look for signs of fluid overload or pneumonia. Respiratory viral panel was sent. Chest x-ray per radiology shows findings concerning for some pulmonary edema but no large effusions or obvious pneumonia. BNP of just minimally elevated 127. Troponin 17.4 seems stable and chronic.. Normal digoxin. CKD appears stable creatinine 1.9. INR just slightly subtherapeutic 1.8. No send with leukocytosis or anemia. Patient does not look septic but is with mild hypoxia. Positive for human metapneumovirus likely causing symptoms. Low suspicion she is actually that fluid overloaded. Again received DuoNeb here. Do not feel antibiotics would be that beneficial. Will bring in with her hypoxia for further supportive care especially with her age and comorbidities. Patient and family updated. DIAGNOSIS: Hypoxia, human metapneumovirus DISPOSITION: Hospitalist will evaluate Patient was agreeable with this plan. Past Med/Surg History Problem List (Updated 11/18/24 @ 15:43 by Alva Watkins PA-C) Acute bronchitis due to human metapneumovirus Infection due to human metapneumovirus (hMPV) (Acute) Hypoxia (Acute) URI (upper respiratory infection) Stage III pressure ulcer of buttock (Acute) Abnormal ankle brachial index (ALEX) (Acute) Acute renal failure superimposed on stage 4 chronic kidney disease Acute on chronic diastolic (congestive) heart failure Acute renal failure superimposed on stage 3 chronic kidney disease Pressure injury of left heel, unstageable Stage II pressure ulcer of right heel Anemia (Acute) TREMAYNE (acute kidney injury) (Acute) Acute hyperglycemia (Acute) Diabetic infection of left foot (Acute) Diabetic foot ulcer (Acute) Callus of foot (Acute) Hypomagnesemia (Acute) Abnormal urinalysis Ambulatory dysfunction (Acute) Hypertension (Acute) Type 2 diabetes mellitus (Acute) Diastolic dysfunction Persistent atrial fibrillation (Acute) Medical History CKD (chronic kidney disease) stage 4, GFR 15-29 ml/min History of breast cancer On warfarin therapy Surgical History History of total right knee replacement History of total left knee replacement History of total abdominal hysterectomy History of cholecystectomy S/P mastectomy, bilateral Family History Other Family history non-contributory Social History Smoking Status: Never smoker Second Hand Exposure: No; Do You Dip or Chew Tobacco: No; Hx Alcohol Use: No Hx Substance Use: No Preferred Language: Swedish Communication Ability: Effective Demo Event Specialist Required: No Beliefs That Will Affect Care: None marital status: Current Living Situation: Alone current occupational status: retired Feels Safe at Home: Yes Assistive Devices: Bedside Commode, Lift Chair, Stair Lift, Walker and Wheelchair Allergies Allergies Allergy/AdvReac Type Severity Reaction Status Date / Time No Known Allergies Allergy Verified 11/18/24 10:00 Home Meds Home Medications Medication Instructions Recorded Confirmed allopurinol 300 mg tablet 300 mg PO QAM 08/15/22 11/18/24 apple cider vinegar 500 mg tablet 500 mg PO PM 08/15/22 11/18/24 aspirin 81 mg tablet,delayed 81 mg PO HS 08/15/22 11/18/24 release cholecalciferol (vitamin D3) 125 10,000 unit PO QPM 08/15/22 11/18/24 mcg (5,000 unit) tablet (Vitamin D3) cyanocobalamin (vitamin B-12) 2,500 mcg PO HS 08/15/22 11/18/24 1,000 mcg tablet (Vitamin B-12) diltiazem HCl 120 mg 120 mg PO QAM 08/15/22 11/18/24 capsule,extended release 24 hr pravastatin 40 mg tablet 40 mg PO HS 08/15/22 11/18/24 vit C 250 mg-vit E 90 mg-zinc 40 1 tab PO BID 11/16/22 11/18/24 mg-copper 1 [id number] capsule (PreserVision AREDS-2) digoxin 250 mcg (0.25 mg) tablet 125 mcg PO TUTHSA@0900 01/05/23 11/18/24 loratadine 10 mg tablet (Claritin) 10 mg PO DAILY 05/21/24 11/18/24 metoprolol succinate 50 mg 50 mg PO QAM 05/21/24 11/18/24 tablet,extended release 24 hr nystatin 100,000 unit/gram topical 1 applic topical TID PRN Other 05/21/24 11/18/24 powder glipizide 5 mg tablet 5 mg PO BID 05/22/24 11/18/24 furosemide 80 mg tablet (Lasix) 80 mg PO DAILY 07/08/24 11/18/24 famotidine 20 mg tablet (Pepcid) 20 mg PO BID 08/05/24 11/18/24 semaglutide 0.25 mg or 0.5 mg (2 0.25 mg subcut ONCE 11/18/24 11/18/24 mg/3 mL) subcutaneous pen injector (Ozempic) warfarin 2 mg tablet 2 mg PO MOWEFR@1600 11/18/24 11/18/24 warfarin 2 mg tablet 3 mg PO SUTUTHSA@1600 11/18/24 11/18/24 Previous Rx's Medication Instructions Recorded Lactobacillus acidophilus 1,200 mg PO DAILY #30 caps 06/08/24 Results & Data (ED) Vital Signs Vital Signs - 24 hr 11/18/24 11:28 11/18/24 11:33 11/18/24 11:57 Temperature 36.3 C L Temperature Source Oral Pulse Rate 91 H 97 H Pulse Rate from SpO2 Sensor 92 H Respiratory Rate 22 27 H Respiratory Effort / Characteristics Non-Labored Spontaneous Respiratory Depth Normal Blood Pressure 193/95 H 148/86 H Blood Pressure Mean 127 106 Pulse Oximetry 94 94 90 Oxygen Delivery Method Room Air Room Air Oxygen Flow Rate Sepsis Recent Fever Within 48 Hours No Sepsis New/Unexplained Change in Mental Status No Sepsis Action Taken by Nursing No Action Required 11/18/24 11:59 11/18/24 11:59 11/18/24 12:00 Temperature Temperature Source Pulse Rate 93 H Pulse Rate from SpO2 Sensor 89 Respiratory Rate 23 Respiratory Effort / Characteristics Respiratory Depth Blood Pressure Blood Pressure Mean Pulse Oximetry 88 L 92 94 Oxygen Delivery Method Room Air Nasal Cannula Oxygen Flow Rate 2 Sepsis Recent Fever Within 48 Hours Sepsis New/Unexplained Change in Mental Status Sepsis Action Taken by Nursing 11/18/24 12:07 11/18/24 12:27 11/18/24 12:30 Temperature Temperature Source Pulse Rate 100 H 84 82 Pulse Rate from SpO2 Sensor 87 86 Respiratory Rate 28 H 22 Respiratory Effort / Characteristics Respiratory Depth Blood Pressure Blood Pressure Mean Pulse Oximetry 100 98 Oxygen Delivery Method Oxygen Flow Rate Sepsis Recent Fever Within 48 Hours Sepsis New/Unexplained Change in Mental Status Sepsis Action Taken by Nursing 11/18/24 12:31 11/18/24 12:31 11/18/24 12:45 Temperature Temperature Source Pulse Rate 82 Pulse Rate from SpO2 Sensor 79 Respiratory Rate 17 Respiratory Effort / Characteristics Respiratory Depth Blood Pressure 139/87 139/87 Blood Pressure Mean 119 119 Pulse Oximetry 95 Oxygen Delivery Method Oxygen Flow Rate Sepsis Recent Fever Within 48 Hours Sepsis New/Unexplained Change in Mental Status Sepsis Action Taken by Nursing 11/18/24 13:00 11/18/24 13:06 11/18/24 13:21 Temperature Temperature Source Pulse Rate 82 76 Pulse Rate from SpO2 Sensor 78 82 Respiratory Rate 25 H 13 Respiratory Effort / Characteristics Respiratory Depth Blood Pressure 155/98 H Blood Pressure Mean 111 Pulse Oximetry 95 91 Oxygen Delivery Method Oxygen Flow Rate Sepsis Recent Fever Within 48 Hours Sepsis New/Unexplained Change in Mental Status Sepsis Action Taken by Nursing 11/18/24 13:48 11/18/24 14:03 Temperature Temperature Source Pulse Rate 80 73 Pulse Rate from SpO2 Sensor 78 72 Respiratory Rate 23 24 Respiratory Effort / Characteristics Respiratory Depth Blood Pressure 168/98 H Blood Pressure Mean 121 Pulse Oximetry 95 98 Oxygen Delivery Method Oxygen Flow Rate Sepsis Recent Fever Within 48 Hours Sepsis New/Unexplained Change in Mental Status Sepsis Action Taken by Nursing Laboratory Data 11/18/24 12:00 11/18/24 12:00 Lab Results 11/18/24 11/18/24 Range/Units 12:00 Unknown WBC 7.21 (4.8-10.8) K/ul RBC 4.23 (4.20-5.40) M/uL Hgb 12.3 (12.0-16.0) g/dl Hct 38.2 (37.0-47.0) % MCV 90.3 (80.0-100.0) fL MCH 29.1 (25.0-34.0) pg MCHC 32.2 (32.0-36.0) g/dL RDW Std Deviation 58.8 H (36.4-46.3) fL RDW Coeff of Eric 18.0 H (11.5-14.5) % Plt Count 214 (130-400) K/uL MPV 10.3 (9.4-12.4) fL Immature Gran % (Auto) 0.7 % Neut % (Auto) 66.6 % Lymph % (Auto) 15.7 % Addison % (Auto) 14.0 % Eos % (Auto) 2.4 % Baso % (Auto) 0.6 % Neut # (Auto) 4.81 (1.40-6.50) K/uL Lymph # (Auto) 1.13 L (1.20-3.40) K/uL Addison # (Auto) 1.01 H (0.11-0.59) K/uL Eos # (Auto) 0.17 (0.00-0.50) K/uL Baso # (Auto) 0.04 (0.00-0.20) K/uL Immature Gran # (Auto) 0.05 (0.01-0.20) K/uL PT 18.5 H (9.0-12.0) Seconds INR 1.8 H (0.9-1.1) APTT 39 H (21-31) Seconds PTT Ratio 1.4 Sodium 137 (136-145) mmol/L Potassium 3.9 (3.5-5.1) mmol/L Chloride 97 L (98-107) mmol/L Carbon Dioxide 31 (21-32) mmol/L Anion Gap 9 (3-11) BUN 56 H (6-23) mg/dl Creatinine 1.94 H (0.6-1.2) mg/dl Est Cr Clr Drug Dosing 23.8 ml/min eGFR 24.46 BUN/Creatinine Ratio 28.9 H (10-20) Glucose 187 H (70-99(Fasting)) mg/dl Calcium 10.9 H (8.6-10.3) mg/dl Total Bilirubin 0.6 (0.2-1.0) mg/dl AST 15 (13-39) U/L ALT 12 (7-52) U/L Alkaline Phosphatase 97 (34-104) U/L Troponin I High Sens 17.4 H (0-14) pg/ml B-Natriuretic Peptide 127 H (0-100) pg/ml Total Protein 7.6 (6.0-8.3) gm/dl Albumin 3.9 (3.4-5.0) gm/dl Globulin 3.7 (2.5-4.0) gm/dl Albumin/Globulin Ratio 1.1 (0.9-2) 25-OH Vitamin D Total Cancelled Digoxin 0.8 (0.8-2.0) ng/ml Adenovirus (PCR) Not Detected (NotDetected) B. pertussis DNA (PCR) Not Detected (NotDetected) B.parapertussis DNA PCR Not Detected (NotDetected) C. pneumoniae DNA (PCR) Not Detected (NotDetected) Coronavirus OC43 (PCR) Not Detected (NotDetected) Coronavirus HKU1 (PCR) Not Detected (NotDetected) Coronavirus 229E (PCR) Not Detected (NotDetected) SARS-CoV-2 (PCR) Not Detected (NotDetected) Coronavirus NL63 (PCR) Not Detected (NotDetected) Human Metapneumovir PCR DETECTED A (NotDetected) Influenza Type A (PCR) Not Detected (NotDetected) Influenza Type B (PCR) Not Detected (NotDetected) M. pneumoniae (PCR) Not Detected (NotDetected) Parainfluenza 1 (PCR) Not Detected (NotDetected) Parainfluenza 2 (PCR) Not Detected (NotDetected) Parainfluenza 3 (PCR) Not Detected (NotDetected) Parainfluenza 4 (PCR) Not Detected (NotDetected) RSV (PCR) Not Detected (NotDetected) Entero/Rhino (PCR) Not Detected (NotDetected) Administered Medications Discontinued Medications Albuterol (Albut/Ipratrop 3mg/0.5mg Neb 3 Ml Vial) 3 ml NEB NOW STA; Protocol Stop: 11/18/24 11:54 Last Admin: 11/18/24 12:14 Dose: 3 ml Documented By: BS Prednisone (Prednisone 20 Mg Tab) 40 mg PO NOW STA Stop: 11/18/24 15:20 Last Admin: 11/18/24 16:07 Dose: 40 mg Documented By: JUNIOR Imaging Data Radiologist's Impression: Chest X-Ray 11/18/24 11:30 XR chest 1V portable CLINICAL HISTORY: hypoxia COMPARISON STUDY: 06/04/2024 FINDINGS: There is stable moderate cardiomegaly with mild pulmonary vascular congestion. There is mildly increased pulmonary interstitial prominence. There is no consolidation or pleural effusion. No pneumothorax. IMPRESSION: CHF. ACT 112: Negative or not required by law. Electronically signed by: Alexandru Rod M.D. 11/18/2024 12:11 PM Discharge Plan Visit Data Chief Complaint: Shortness of Breath/Dyspnea Stated Complaint: HYPOXIA, SOB ED Provider: Theodore Noland Discharge Problem: Hypoxia, Infection due to human metapneumovirus (hMPV) Patient Disposition: Being Evaluated by Hospitalist Condition: Fair Forms Stand Alone Forms: [facility] Prescriptions Prescriptions: No Action furosemide [Lasix] 80 mg tablet 80 mg PO DAILY famotidine [Pepcid] 20 mg tablet 20 mg PO BID Ozempic 0.25 mg or 0.5 mg (2 mg/3 mL) pen injector 0.25 mg subcut ONCE PreserVision AREDS-2 250-90-40-1 mg Capsule 1 tab PO BID pravastatin 40 mg tablet 40 mg PO HS cyanocobalamin (vitamin B-12) [Vitamin B-12] 1,000 mcg Tablet 2,500 mcg PO HS aspirin 81 mg Tablet,Delayed Release (Dr/Ec) 81 mg PO HS diltiazem HCl 120 mg capsule,extended release 24hr 120 mg PO QAM allopurinol 300 mg tablet 300 mg PO QAM apple cider vinegar 500 mg Tablet 500 mg PO PM cholecalciferol (vitamin D3) [Vitamin D3] 125 mcg (5,000 unit) Tablet 10,000 unit PO QPM digoxin 250 mcg (0.25 mg) tablet 125 mcg PO TUTHSA@0900 Rx Instructions: , and saturdays AM warfarin 2 mg tablet 2 mg PO MOWEFR@1600 warfarin 2 mg tablet 3 mg PO SUTUTHSA@1600 metoprolol succinate 50 mg tablet extended release 24 hr 50 mg PO QAM nystatin 100,000 unit/gram powder 1 applic TOPICAL TID PRN (Reason: Other) loratadine [Claritin] 10 mg Tablet 10 mg PO DAILY glipizide 5 mg tablet 5 mg PO BID Lactobacillus acidophilus Capsule 1,200 mg PO DAILY Qty: 30 0RF Referrals Referrals: Angeli Lee MD [Primary Care Provider] -
--- NOTE | 2024-11-18 12:13 | XRay Report ---
XR chest 1V portable CLINICAL HISTORY: hypoxia COMPARISON STUDY: 06/04/2024 FINDINGS: There is stable moderate cardiomegaly with mild pulmonary vascular congestion. There is mil dly increased pulmonary interstitial prominence. There is no consolidation or pleural effusion. No pn eumothorax. IMPRESSION: CHF. ACT 112: Negative or not required by law. Electronically signed by: Alexandru Rod M.D. 11/18/2024 12:11 PM
[2024-11-18] MEDS: ALBUT/IPRATROP 3MG/0.5MG NEB 3 ML VIAL NEB STA (12:14)
[2024-11-18 12:24] LABS: Basophils # (auto) 0.04 K/uL (0.00-0.20); Basophils % (auto) 0.6 %; Eosinophils # (auto) 0.17 K/uL (0.00-0.50); Eosinophils % (auto) 2.4 %; Hematocrit (blood only) 38.2 % (37.0-47.0); Hemoglobin 12.3 g/dl (12.0-16.0); Immature Granulocytes # (auto) 0.05 K/uL (0.01-0.20); Immature Granulocytes % (auto) 0.7 %; Lymphocytes # (auto) 1.13 K/uL (1.20-3.40); Lymphocytes % (auto) 15.7 %; Mean Corpuscular Hemoglobin 29.1 pg (25.0-34.0); Mean Corpuscular Hgb Conc 32.2 g/dL (32.0-36.0); Mean Corpuscular Volume 90.3 fL (80.0-100.0); Mean Platelet Volume 10.3 fL (9.4-12.4); Monocytes # (auto) 1.01 K/uL (0.11-0.59); Neutrophils # (auto) 4.81 K/uL (1.40-6.50); Neutrophils % (auto) 66.6 %; Platelet Count 214 K/uL (130-400); RDW Standard Deviation 58.8 fL (36.4-46.3); Red Blood Count 4.23 M/uL (4.20-5.40); White Blood Count 7.21 K/ul (4.8-10.8)
[2024-11-18 12:34] LABS: Adenovirus PCR Not Detected (NotDetected); Bordetella parapertussis PCR Not Detected (NotDetected); Bordetella pertussis PCR Not Detected (NotDetected); Chlamydia pneumoniae PCR Not Detected (NotDetected); Coronavirus 229E PCR Not Detected (NotDetected); Coronavirus CoV-2 (COVID19)PCR Not Detected (NotDetected); Coronavirus HKU1 PCR Not Detected (NotDetected); Coronavirus NL63 PCR Not Detected (NotDetected); Coronavirus OC43PCR Not Detected (NotDetected); Human Metapneumovirus PCR DETECTED (NotDetected); Influenza A PCR Not Detected (NotDetected); Influenza B PCR Not Detected (NotDetected); Mycoplasma pneumoniae PCR Not Detected (NotDetected); Parainfluenza Virus 1 PCR Not Detected (NotDetected); Parainfluenza Virus 2 PCR Not Detected (NotDetected); Parainfluenza Virus 3 PCR Not Detected (NotDetected); Parainfluenza Virus 4 PCR Not Detected (NotDetected); Respiratory Syncytial VirusPCR Not Detected (NotDetected); Rhinovirus/Enterovirus PCR Not Detected (NotDetected)
[2024-11-18 12:41] LABS: Albumin Globulin Ratio 1.1 (0.9-2); Albumin Level 3.9 gm/dl (3.4-5.0); BUN Creatinine Ratio 28.9 (10-20); Bilirubin,Total 0.6 mg/dl (0.2-1.0); Calcium 10.9 mg/dl (8.6-10.3); Creatinine Clr Calc Pharmacy 23.8 ml/min; Globulin 3.7 gm/dl (2.5-4.0); Potassium 3.9 mmol/L (3.5-5.1); Total Protein 7.6 gm/dl (6.0-8.3)
[2024-11-18 12:47] LABS: Troponin I High Sensitivity 17.4 pg/ml (0-14)
[2024-11-18 12:50] LABS: INR 1.8 (0.9-1.1); Partial Thromboplastin Ratio 1.4; Partial Thromboplastin Time 39 Seconds (21-31); Prothrombin Time 18.5 Seconds (9.0-12.0)
--- NOTE | 2024-11-18 13:39 | Electrocardiogram Report ---
Test Reason : Blood Pressure : */* mmHG Vent. Rate : 95 BPM Atrial Rate : * BPM P-R Int : * ms QRS Dur : 96 ms QT Int : 340 ms P-R-T Axes : * -15 206 degrees QTcB Int : 427 ms Atrial fibrillation Nonspecific ST and T wave abnormality Abnormal ECG When compared with ECG of 21-May-2024 11:06, No significant change was found Confirmed by Talon Ellington ([id number]) on 11/18/2024 1:39:02 PM Referred By: REFERRED SELF Confirmed By: Talon Ellington
--- NOTE | 2024-11-18 15:35 | History & Physical Report ---
Date of Service November 18, 2024 Assessment & Plan (1) Hypoxia: (2) Acute bronchitis due to human metapneumovirus: (3) Diabetic ulcer of left heel: (4) Stage III pressure ulcer of buttock: (5) Type 2 diabetes mellitus: (6) Persistent atrial fibrillation: Plan This is an 89-year-old female who has a significant past medical history of T2DM, HTN, HLD, persistent atrial fibrillation anticoagulant on warfarin, pulmonary hypertension, gouty arthropathy, CKD stage IV, b/l macular degeneration bilaterally, morbid obesity who presents to ED secondary to referral from wound care due to hypoxia. #Acute hypoxic respiratory failure #Acute bronchitis 2/2 Human metapneumovirus admit to medical continue supplemental O2, wean off as able Prednisone 40mg daily x 5 days, Azithromycin 500mg daily x 3 days for anti inflammatory properties Scheduled duonebs, incentive spirometry, flutter valve, prn antitussive #Chronic atrial fibrillation continue metoprolol, diltiazem, digoxin and warfarin INR 1.8 today, mildly subtherapeutic, pt has been stable for 1 month on 2mg mwf, 3mg all other days will continue regimen for now, re eval after INR in a.m #Chronic Diastolic CHF daily weight, I and O continue metoprolol, lasix, dig #T2DM uncontrolled, a1c in september 9.3 lantus/novolog per protocol hold glipizide and ozempic (recently started in October) #Left diabetic Heel Wound, POA #Stage III B/L buttock wound, POA Aquacel AG daily, consult wound care off loading as much as possible, pt wheel chair bound #Chronic lower extremity edema/venous stasis #CKD-4 baseline cr 1.9-2.0 continue current lasix, pt appears at her baseline #Elevated troponin suspect in setting of CKD, will repeat trop now, if flat no need for continued trending no CP, EKG stable #Morbid Obesity, BMI 45.4 encourage diet/lifestyle modifications #DVT ppx: continue warfarin FULL CODE PCP: Angeli Lee MD Dispo: admit to med/surg, consult PT/OT although pt wheel chair bound at baseline, has sit/stand max lift at home and 24/7 care, suspect able to return home at current level of function Pt was seen and examined in collaboration with Dr. Jimenez, please see addendum I spent a total of 72 minutes coordinating, documenting and providing care for this patient excluding time spent in the performance of separately billed services or time spent by another provider/QHP. History of Present Illness Chief Complaint: Hypoxic while at wound center. Primary Care Provider: Angeli Lee MD This is an 89-year-old female who has a significant past medical history of T2DM, HTN, HLD, persistent atrial fibrillation anticoagulant on warfarin, pulmonary hypertension, gouty arthropathy, CKD stage IV, b/l macular degeneration bilaterally, morbid obesity who presents to ED secondary to referral from wound care due to hypoxia. History obtained from patient, daughter and great granddaughter at bedside. Prior to ED evaluation patient was being seen in the wound clinic for her routine follow-up for her chronic left heel wound that had recently reopened and a sacral wound. Upon evaluation there she was found to be hypoxic in the high 80s. She was referred to ED via EMS for further evaluation. Daughter states that she recently got over an upper respiratory infection and feels that she has passed it to her mother. Patient started with a dry cough since Thursday. Patient denies any fever, chills, sweats, lightheadedness, dizziness, sinus congestion, sore throat, hemoptysis, shortness of breath at rest, nausea, vomiting, abdominal pain. She is mostly incontinent of urine and does wear a depends. She overall has had a decreased appetite recently due to recently being started on Ozempic. Patient lives alone at home but does have 24/7 care. She is mostly wheelchair-bound and does use a sit to stand Max lift for transfers. She has been compliant with her medications. In ED patient required 2 L of oxygen via nasal cannula. She did test positive for human metapneumovirus. She had mildly elevated troponin at 17.4, BNP at 127, stable BUN and creatinine of 56 and 1.94, INR 1.8. Chest x- ray was reading mild CHF. Family notes unable to obtain patient weight due to her being wheelchair-bound. They feel her lower extremity chronic swelling is actually improved from baseline. She received a nebulizer treatment in ED. Allergies Allergy/AdvReac Type Severity Reaction Status Date / Time No Known Allergies Allergy Verified 11/18/24 10:00 Home Medications Medication Instructions Recorded Confirmed Type allopurinol 300 mg tablet 300 mg PO QAM 03/17/23 06/20/25 History apple cider vinegar 500 mg tablet 500 mg PO PM 08/15/22 11/18/24 History aspirin 81 mg tablet,delayed 81 mg PO HS 08/15/22 11/18/24 History release cholecalciferol (vitamin D3) 125 10,000 unit PO QPM 08/15/22 11/18/24 History mcg (5,000 unit) tablet (Vitamin D3) cyanocobalamin (vitamin B-12) 2,500 mcg PO HS 08/15/22 11/18/24 History 1,000 mcg tablet (Vitamin B-12) diltiazem HCl 120 mg 120 mg PO QAM 08/15/22 11/18/24 History capsule,extended release 24 hr pravastatin 40 mg tablet 40 mg PO HS 08/15/22 11/18/24 History vit C 250 mg-vit E 90 mg-zinc 40 1 tab PO BID 11/16/22 11/18/24 History mg-copper 1 [id number] capsule (PreserVision AREDS-2) digoxin 250 mcg (0.25 mg) tablet 125 mcg PO TUTHSA@0900 01/05/23 11/18/24 History loratadine 10 mg tablet (Claritin) 10 mg PO DAILY 05/21/24 11/18/24 History metoprolol succinate 50 mg 50 mg PO QAM 05/21/24 11/18/24 History tablet,extended release 24 hr nystatin 100,000 unit/gram topical 1 applic topical TID PRN Other 05/21/24 11/18/24 History powder glipizide 5 mg tablet 5 mg PO BID 05/22/24 11/18/24 History Lactobacillus acidophilus 1,200 mg PO DAILY #30 caps 06/08/24 11/18/24 Rx furosemide 80 mg tablet (Lasix) 80 mg PO DAILY 07/08/24 11/18/24 History famotidine 20 mg tablet (Pepcid) 20 mg PO BID 08/05/24 11/18/24 History semaglutide 0.25 mg or 0.5 mg (2 0.25 mg subcut ONCE 11/18/24 11/18/24 History mg/3 mL) subcutaneous pen injector (Ozempic) warfarin 2 mg tablet 2 mg PO MOWEFR@1600 11/18/24 06/20/25 History warfarin 2 mg tablet 3 mg PO SUTUTHSA@1600 11/18/24 11/18/24 History Past Med/Surg History Problem List (Updated 11/18/24 @ 15:43 by Alva Watkins PA-C) Acute bronchitis due to human metapneumovirus Infection due to human metapneumovirus (hMPV) (Acute) Hypoxia (Acute) URI (upper respiratory infection) Stage III pressure ulcer of buttock (Acute) Abnormal ankle brachial index (ALEX) (Acute) Acute renal failure superimposed on stage 4 chronic kidney disease Acute on chronic diastolic (congestive) heart failure Acute renal failure superimposed on stage 3 chronic kidney disease Pressure injury of left heel, unstageable Stage II pressure ulcer of right heel Anemia (Acute) TREMAYNE (acute kidney injury) (Acute) Acute hyperglycemia (Acute) Diabetic infection of left foot (Acute) Diabetic foot ulcer (Acute) Callus of foot (Acute) Hypomagnesemia (Acute) Abnormal urinalysis Ambulatory dysfunction (Acute) Hypertension (Acute) Type 2 diabetes mellitus (Acute) Diastolic dysfunction Persistent atrial fibrillation (Acute) Medical History CKD (chronic kidney disease) stage 4, GFR 15-29 ml/min History of breast cancer On warfarin therapy Surgical History History of total right knee replacement History of total left knee replacement History of total abdominal hysterectomy History of cholecystectomy S/P mastectomy, bilateral Family History Other Family history non-contributory Social History Smoking Status: Never smoker Second Hand Exposure: No; Do You Dip or Chew Tobacco: No; Hx Alcohol Use: No Hx Substance Use: No Preferred Language: Greenlandic Communication Ability: Effective 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 Beliefs That Will Affect Care: None marital status: Current Living Situation: Alone current occupational status: retired Feels Safe at Home: Yes Assistive Devices: Bedside Commode, Lift Chair, Stair Lift, Walker and Wheelchair Review of Systems Review of Systems: All systems reviewed & are unremarkable except as noted in HPI & below Physical Exam Physical Exam: Constitutional: Elderly, F, Obese, vitals as above, NAD, sitting up in bed, pleasant, conversing easily Head: Normocephalic, Atraumatic Eyes: conjunctivae normal, anicteric sclerae ENMT: external ear and nose normal, oropharynx normal Neck: trachea midline, no thyromegaly normal visual inspection Respiratory: 2L O2 via NC, prolonged exp phase with exp wheezing b/l, no rales/rhonchi, normal respiratory effort Cardiovascular: IRR/IRR,2/6 ROHAN noted RUSB, chronic b/l venous stasis with nonpitting edema, compression dressing in place Vessels: no JVD or carotid bruit Chest: normal inspection of chest Abdomen: obese, S, NT, ND +BS x 4 Musculoskeletal: no cyanosis or clubbing, arom x 4, minimal use of ROM to b/l lower ext Skin: no rashes, warm and dry normal turgor Neurologic: no face palsy, no dysarthria CN's II-XI intact bilaterally and moves all extremities Psychiatric: A+Ox3, euthymic affect Results & Data Results & Data Vital Signs (Past 12 Hours) Vital Signs Temp Pulse Resp BP Pulse Ox O2 Del Method O2 Flow Rate 11/18/24 14:03 73 24 168/98 H 98 11/18/24 13:48 80 23 95 11/18/24 13:21 76 13 91 11/18/24 13:06 82 25 H 95 11/18/24 13:00 155/98 H 11/18/24 12:45 82 17 95 11/18/24 12:31 139/87 11/18/24 12:31 139/87 11/18/24 12:30 82 22 98 11/18/24 12:27 84 28 H 100 11/18/24 12:07 100 H 11/18/24 12:00 93 H 23 94 11/18/24 11:59 92 Nasal Cannula 2 11/18/24 11:59 88 L Room Air 11/18/24 11:57 97 H 27 H 148/86 H 90 11/18/24 11:33 94 Room Air 11/18/24 11:28 36.3 C L 91 H 22 193/95 H 94 Room Air Laboratory Results I have independently reviewed and interpreted patient's admitting labs including CBC, CMP, PTT, PT/INR, mag and troponin, resp viral panel Diagnostic Findings Chest X-Ray 11/18/24 11:30 XR chest 1V portable CLINICAL HISTORY: hypoxia COMPARISON STUDY: 06/04/2024 FINDINGS: There is stable moderate cardiomegaly with mild pulmonary vascular congestion. There is mildly increased pulmonary interstitial prominence. There is no consolidation or pleural effusion. No pneumothorax. IMPRESSION: CHF. ACT 112: Negative or not required by law. Electronically signed by: Alexandru Rod M.D. 11/18/2024 12:11 PM Medications Administered Medication List Discontinued Medications Albuterol (Albut/Ipratrop 3mg/0.5mg Neb 3 Ml Vial) 3 ml NEB NOW STA; Protocol Stop: 11/18/24 11:54 Last Admin: 11/18/24 12:14 Dose: 3 ml Documented By: JUNIOR ECG Additional Comments: I have independently reviewed and interpreted patient's admitting EKG which revealed: 95 bpm, afib, qtc 427ms COVID-19 Results Results COVID-19 Adm Lab Results: RBC 4.23 M/uL (4.20-5.40) 11/18/24 WBC 7.21 K/ul (4.8-10.8) 11/18/24 Hgb 12.3 g/dl (12.0-16.0) 11/18/24 Hct 38.2 % (37.0-47.0) 11/18/24 Plt Count 214 K/uL (130-400) 11/18/24 Neutrophils (%) (Auto) 66.6 % 11/18/24 Lymphocytes (%) (Auto) 15.7 % 11/18/24 Monocytes # (Auto) 1.01 K/uL (0.11-0.59) H 11/18/24 Eosinophils # (Auto) 0.17 K/uL (0.00-0.50) 11/18/24 Immature Granulocyte % (Auto) 0.7 % 11/18/24 Neutrophils # (Auto) 4.81 K/uL (1.40-6.50) 11/18/24 Lymphocytes # (Auto) 1.13 K/uL (1.20-3.40) L 11/18/24 Monocytes # (Auto) 1.01 K/uL (0.11-0.59) H 11/18/24 Eosinophils # (Auto) 0.17 K/uL (0.00-0.50) 11/18/24 Basophils # (Auto) 0.04 K/uL (0.00-0.20) 11/18/24 Immature Granulocyte # (Auto) 0.05 K/uL (0.01-0.20) 5 Na 137 mmol/L (136-145) 11/18/24 K 3.9 mmol/L (3.5-5.1) 11/18/24 Cl 97 mmol/L (98-107) L 11/18/24 CO2 31 mmol/L (21-32) 11/18/24 Anion Gap 9 (3-11) 11/18/24 BUN 56 mg/dl (6-23) H 11/18/24 Creatinine 1.94 mg/dl (0.6-1.2) H 11/18/24 BUN/Creatinine Ratio 28.9 (10-20) H 11/18/24 Glucose Level 187 mg/dl (70-99(Fasting)) H 11/18/24 Ca 10.9 mg/dl (8.6-10.3) H 11/18/24 Total Bilirubin 0.6 mg/dl (0.2-1.0) 11/18/24 AST/SGOT 15 U/L (13-39) 11/18/24 ALT/SGPT 12 U/L (7-52) 11/18/24 Alkaline Phosphatase 97 U/L (34-104) 11/18/24 Total Protein 7.6 gm/dl (6.0-8.3) 11/18/24 Albumin 3.9 gm/dl (3.4-5.0) 11/18/24 Globulin 3.7 gm/dl (2.5-4.0) 11/18/24 Albumin/Globulin Ratio 1.1 (0.9-2) 11/18/24 PTT 39 Seconds (21-31) H 11/18/24 INR 1.8 (0.9-1.1) H 11/18/24 Adenovirus (PCR) Not Detected (NotDetected) 11/18/24 B. parapertussis DNA (PCR) Not Detected (NotDetected) 10/31 0 B. pertussis DNA (PCR) Not Detected (NotDetected) 11/18/24 C. pneumoniae DNA (PCR) Not Detected (NotDetected) 5 Coronavirus Type OC43 (PCR) Not Detected (NotDetected) Coronavirus Type HKU1 (PCR) Not Detected (NotDetected) Coronavirus Type 229E (PCR) Not Detected (NotDetected) COVID-19 PCR Not Detected (NotDetected) 11/18/24 Coronavirus Type NL63 (PCR) Not Detected (NotDetected) Human Metapneumovirus (PCR) DETECTED (NotDetected) A 11/18 Influenza Virus Type A (PCR) Not Detected (NotDetected) Influenza Virus Type B (PCR) Not Detected (NotDetected) M. pneumoniae (PCR) Not Detected (NotDetected) 11/18/24 Parainfluenza Type 1 (PCR) Not Detected (NotDetected) 10/31 Parainfluenza Type 2 (PCR) Not Detected (NotDetected) 10/31 Parainfluenza Type 3 (PCR) Not Detected (NotDetected) 10/31 Parainfluenza Type 4 (PCR) Not Detected (NotDetected) 10/31 RSV (PCR) Not Detected (NotDetected) 11/18/24 Enterovirus/Rhinovirus (PCR) Not Detected (NotDetected) Chest X-Ray 11/18/24 Code Status & VTE Plan Code Status FULL CODE VTE Prophylaxis Plan VTE Prophylaxis will be ordered: Yes Supervising Physician Co-Signing Physician Notes Patient seen and examined at bedside. Patient presents with UTRI-like symptoms along with cough; found to have human metapneumovirus. Plan to treat with DuoNebs, steroids and a course of azithromycin. Wean oxygen as tolerated I have reviewed the advanced practitioner's documentation, and I agree with, and take responsibility for the plan of care I spent a total of 30 minutes coordinating, documenting, and providing care for this patient excluding time spent in the performance of separately billed services. All of the aforementioned completed while collaborating with the assigned advanced practitioner for a full treatment plan (3) Diabetic ulcer of left heel Diabetes mellitus type: type 2 Non-pressure ulcer stage: unspecified non- pressure ulcer stage Qualified Code(s): E11.621 - Type 2 diabetes mellitus with foot ulcer; L97.429 - Non-pressure chronic ulcer of left heel and midfoot with unspecified severity (4) Stage III pressure ulcer of buttock Laterality: unspecified laterality Qualified Code(s): L89.303 - Pressure ulcer of unspecified buttock, stage 3 (5) Type 2 diabetes mellitus Diabetes mellitus complication detail: with foot ulcer Diabetes mellitus complication status: with skin complications Diabetes mellitus alf insulin use: without alf use Qualified Code(s): E11.621 - Type 2 diabetes mellitus with foot ulcer; L97.509 - Non-pressure chronic ulcer of other part of unspecified foot with unspecified severity
[2024-11-18] MEDS: predniSONE 20 MG TAB PO STA (16:07)
[2024-11-18 17:17] LABS: Thyroid Stimulating Hormone 2.479 uIu/ml (0.300-4.500)
[2024-11-18] MEDS ORDERED: CARBOHYDRATES FOR HYPOGLYCEMIA PO PRN (17:59)
[2024-11-18] MEDS ORDERED: ONDANSETRON INJ 2 MG/ML 2 ML VIAL IV PRN (17:59)
[2024-11-18] MEDS ORDERED: ACETAMINOPHEN 325 MG TAB PO PRN (17:59)
[2024-11-18] MEDS ORDERED: GLUCOSE 10 TAB/TUBE PO PRN (17:59)
[2024-11-18] MEDS ORDERED: GLUCOSE 40% GEL 15 GM TUBE PO PRN (17:59)
[2024-11-18] MEDS ORDERED: GLUCAGON FOR INJ 1 MG VIAL SQ PRN (17:59)
[2024-11-18] MEDS ORDERED: POLYETHYLENE (MIRALAX) 17 GM PACK PO PRN (17:59)
[2024-11-18] MEDS ORDERED: DEXTROMETHORPHAN POLYMR COMPLX 30MG/5 ML BTL PO PRN (17:59)
[2024-11-18] MEDS ORDERED: DEXTROSE 50% 50 ML SYRINGE IV PRN (17:59)
[2024-11-18] MEDS: WARFARIN SOD 2 MG TAB PO SCH (19:51)
[2024-11-18] MEDS: AZITHROMYCIN 250 MG TAB PO SCH (19:52)
[2024-11-18] MEDS: ASPIRIN 81 MG ECTAB PO SCH (19:53)
[2024-11-18] MEDS: CHOLECALCIFEROL 125 MCG (5,000 UNITS) TAB PO SCH (19:53)
[2024-11-18] MEDS: PRAVASTATIN SOD 40 MG TAB PO SCH (19:54)
[2024-11-18] MEDS: CYANOCOBALAMIN (B-12) 2,500 MCG TABLET PO SCH (19:54)
[2024-11-18] MEDS: INSULIN ASPART PER UNIT CHARGE SC SCH (20:09)
[2024-11-18 21:28] LABS: Appearance Urine Turbid (Clear); Bacteria Urine Automated 4+ (None Seen); Bilirubin Urine Negative (Negative); Blood Urine 1+ (Negative); Color Urine Yellow; Epithelial Cell Urine Auto 0-2 /hpf (0-2); Glucose Urine UA Negative (Negative); Ketones Urine Negative (Negative); Leukocyte Esterase Urine 3+ (Negative); Nitrite Urine Negative (Negative); Protein Urine 1+ (Negative); RBC Urine Automated 0-2 /hpf (0-2); Urobilinogen Urine Negative (Negative); WBC Urine Automated >50 /hpf (0-5); pH Urine 6.5 (4.5-7.5)
[2024-11-18] MEDS: LANTUS PER UNIT CHARGE SQ SCH (22:00)
[2024-11-19 07:10] LABS: Basophils # (auto) 0.02 K/uL (0.00-0.20); Basophils % (auto) 0.4 %; Hematocrit (blood only) 37.2 % (37.0-47.0); Immature Granulocytes # (auto) 0.05 K/uL (0.01-0.20); Immature Granulocytes % (auto) 0.9 %; Lymphocytes % (auto) 7.6 %; Mean Corpuscular Hemoglobin 29.4 pg (25.0-34.0); Mean Corpuscular Hgb Conc 32.3 g/dL (32.0-36.0); Mean Corpuscular Volume 91.2 fL (80.0-100.0); Mean Platelet Volume 10.8 fL (9.4-12.4); Monocytes # (auto) 0.08 K/uL (0.11-0.59); Monocytes % (auto) 1.5 %; Neutrophils # (auto) 4.73 K/uL (1.40-6.50); Neutrophils % (auto) 89.6 %; Platelet Count 223 K/uL (130-400); RDW Coefficient of Variation 17.3 % (11.5-14.5); RDW Standard Deviation 58.1 fL (36.4-46.3); Red Blood Count 4.08 M/uL (4.20-5.40); White Blood Count 5.28 K/ul (4.8-10.8)
--- NOTE | 2024-11-19 07:14 | Hospitalist Progress Note ---
Date of Service November 19, 2024 Assessment & Plan (1) Hypoxia: (2) Acute bronchitis due to human metapneumovirus: (3) Abnormal urinalysis: (4) Diabetic ulcer of left heel: (5) Stage III pressure ulcer of buttock: Plan Patient is an 89-year-old female with past medical history significant for T2DM, HTN, HLD, chronic diastolic CHF, persistent atrial fibrillation anticoagulated on warfarin, pulmonary HTN, gouty arthropathy, COPD, CKD stage IV, bilateral macular degeneration, morbid obesity and other problems listed below who presented to the ED secondary to referral from the [place] wound care clinic due to hypoxia. #Acute hypoxic respiratory failure #Acute bronchitis 2/2 human metapneumovirus Continue Zithromax x 3-day course Continue prednisone 40mg daily x 5-day course Continue viv Duonebs, ISP/FV use PRN antitussives Wean O2 as tolerated #Abnormal UA c/f acute UTI Empiric Rocephin pending urine cx results #Left heel diabetic ulcer -- POA #Stage III buttock pressure ulcer -- POA F/w [place] wound care clinic Aquacel AG daily, appreciate wound care consult Off loading as much as possible, pt wheel chair bound #Chronic afib Continue metoprolol, diltiazem, digoxin and warfarin INR still slightly subtherapeutic --> continue current dosing and reassess INR in AM #Chronic diastolic CHF Continue Lasix 80mg daily Weight stable Continue daily weights, close I&Os #T2DM Poorly controlled, Hgb A1c 9.3 as of 09/2024 Updated Hgb A1c 9.1% Lantus/NovoLog per protocol Hold glipizide and Ozempic (recently started in October) while inpt Appreciate assistance of glycemic pharm #Chronic BLE edema/venous stasis Continue Lasix Wound care #CKD stage IV Cr remains stable Baseline Cr ~1.8-2.2 Continue to monitor #Elevated troponin Suspect in setting of CKD No CP, EKG stable #Morbid obesity, BMI 45.4 Encourage diet/lifestyle modifications DVT Prophylaxis: warfarin Disposition: Monitor resp status overnight, attempt to wean off O2; likely d/c home tomorrow Patient seen in collaboration with Dr. Fernandes. Please see addendum. I spent a total of 40 minutes coordinating, documenting, and providing care for this patient excluding time spent in the performance of separately billed services or time spent by another provider/QHP. This included personally reviewing all current laboratories and imaging studies, medical reconciliation, outpatient chart review and discussion with specialists. This chart was completed in part utilizing Speech Voice Recognition Software. Grammatical errors, random word insertions, pronoun errors, and incomplete sentences are an occasional consequence of this system due to software limitations, ambient noise, and hardware issues. Any formal questions or concerns about the content, text, or information contained within the body of this dictation should be directly addressed to the provider for clarification. Admission and Anticipated Discharge Date Admission Date: November 18, 2024 Supervising Physician Co-Signing Physician Notes Patient seen and examined at bedside. Patient states she feels at her baseline and would like to go home. No symptoms. On exam, elderly appearing lady, chronic wounds on bilateral LE and bilateral feet, some wheezing on exam, mild cough noted. Patient has metapneumovirus causing acute hypoxic respiratory failure. Test on pulse ox in room shows 91% consistently on room air. Does not walk per patient at baseline. Will monitor another day given wheezing, likely discharge in morning. I have seen and discussed the case with the collaborating advanced practitioner. I agree with the above H&P. I have reviewed and confirmed the patients medical history, the findings on physical examination, and the patients diagnosis and treatment plan with Ana POWER and agree with the information documented. I spent a total of 20 minutes coordinating, documenting, and providing care for this patient excluding time spent in the performance of separately billed services. All of the aforementioned completed outside of collaborating with the assigned advanced practitioner for a full treatment plan. I have reviewed the advanced practitioner's documentation, and I agree with, and take responsibility for the plan of care Subjective Patient seen and examined in W362-1. Wheelchair-bound at baseline. Denies any SOB or chest pain. Endorses a mild dry cough. Tolerating diet without issue. Review of Systems Review of Systems: At least ten systems reviewed and negative, except as noted in the subjective section. Physical Exam Physical Exam: General: Elderly, obese, NAD, sitting up in bed, A&Ox4, very pleasant HEENT: Normocephalic, atraumatic, oropharynx moist Respiratory: 2L O2 via NC, diffuse exp wheezing heard throughout, no rales/rhonchi, normal resp effort Cardiovascular: Tachycardic rate, IIR, + systolic murmur, chronic BLE venous stasis, dressing on both feet/waffle boots Abdomen/GI: Active bowel sounds, soft, nontender to palpation in all quadrants Extremities/MSK: Minimal ROM of BLE d/t edema Neurologic: No overt focal deficits, CN's II-XI not formally tested but appear grossly intact bilaterally Results & Data Results & Data Vital Signs (Past 12 Hours) Vital Signs Temp Pulse Resp BP Pulse Ox O2 Del Method O2 Flow Rate 11/18/24 19:53 Nasal Cannula 3 11/18/24 19:47 36.3 C L 82 14 140/91 94 Nasal Cannula 3 Laboratory Results Short CBC 11/19/24 Range/Units 06:29 WBC 5.28 (4.8-10.8) K/ul Hgb 12.0 (12.0-16.0) g/dl Hct 37.2 (37.0-47.0) % Plt Count 223 (130-400) K/uL BMP 11/19/24 06:29 Sodium 136 Potassium 4.4 Chloride 97 L Carbon Dioxide 29 BUN 58 H Creatinine 2.16 H Glucose 232 H Calcium 10.4 H Liver Function 11/19/24 Range/Units 06:29 Total Bilirubin 0.5 (0.2-1.0) mg/dl AST 15 (13-39) U/L ALT 11 (7-52) U/L Alkaline Phosphatase 91 (34-104) U/L Albumin 3.8 (3.4-5.0) gm/dl Urine 11/18/24 Range/Units 20:19 Urine Color Yellow Urine Appearance Turbid A (Clear) Urine pH 6.5 (4.5-7.5) Ur Specific [place] 1.010 (1.000-1.030) Urine Protein 1+ H (Negative) Urine Glucose (UA) Negative (Negative) (4) Diabetic ulcer of left heel Diabetes mellitus type: type 2 Non-pressure ulcer stage: unspecified non- pressure ulcer stage Qualified Code(s): E11.621 - Type 2 diabetes mellitus with foot ulcer; L97.429 - Non-pressure chronic ulcer of left heel and midfoot with unspecified severity (5) Stage III pressure ulcer of buttock Laterality: unspecified laterality Qualified Code(s): L89.303 - Pressure ulcer of unspecified buttock, stage 3
[2024-11-19 07:19] LABS: Albumin Globulin Ratio 1.2 (0.9-2); Albumin Level 3.8 gm/dl (3.4-5.0); BUN Creatinine Ratio 26.9 (10-20); Bilirubin,Total 0.5 mg/dl (0.2-1.0); Calcium 10.4 mg/dl (8.6-10.3); Creatinine Clr Calc Pharmacy 21.3 ml/min; Globulin 3.3 gm/dl (2.5-4.0); INR 1.8 (0.9-1.1); Potassium 4.4 mmol/L (3.5-5.1); Prothrombin Time 18.4 Seconds (9.0-12.0); Total Protein 7.1 gm/dl (6.0-8.3)
[2024-11-19 08:10] LABS: Estimated Average Glucose 214 mg/dl; Hemoglobin A1C 9.1 % (4.5-5.6)
[2024-11-19] MEDS: cefTRIAXone SODIUM 2,000 MG/50 ML BAG IV SCH (08:46)
[2024-11-19] MEDS: CEROVITE ADV FORMULA TAB PO SCH (08:49)
[2024-11-19] MEDS: LORATADINE 10 MG TAB PO SCH (08:49)
[2024-11-19] MEDS: DIGOXIN 0.125 MG TAB PO SCH (08:49)
[2024-11-19] MEDS: predniSONE 20 MG TAB PO SCH (08:49)
[2024-11-19] MEDS: allopurinoL 300 MG TAB PO SCH (08:49)
[2024-11-19] MEDS: dilTIAZem HCL 120 MG CAPCR PO SCH (08:49)
[2024-11-19] MEDS: METOPROLOL SUCC 50MG EXT REL TAB PO SCH (08:49)
[2024-11-19] MEDS: FUROSEMIDE 80 MG TAB PO SCH (08:49)
[2024-11-19] MEDS: FAMOTIDINE 20 MG TAB PO SCH (08:54)
[2024-11-19] MEDS: COUGH DROP (SUGAR FREE) LOZ 24 LOZ/1 BOX BUCCAL ONE (13:27)
[2024-11-19] MEDS ORDERED: PHARMACY GLYCEMIC MGMT CONSULT PRN (13:57)
[2024-11-19] MEDS: INSULIN ASPART PER UNIT CHARGE SC ONE (14:29)
[2024-11-19] MEDS: LANTUS PER UNIT CHARGE SQ ONE (14:29)
--- NOTE | 2024-11-19 14:38 | Pharmacy Report ---
Pharmacy Glycemic Short Note 2 - Date of Service November 19, 2024 - Glycemic Short BSG Results (Last 24 hours): 11/18/24 11/18/24 11/18/24 17:35 20:03 21:53 Glucose POC Glucose 213 H 215 H 226 H 11/19/24 11/19/24 11/19/24 06:29 07:39 11:43 Glucose 232 H POC Glucose 245 H 296 H OUTPATIENT ANTIDIABETIC REGIMEN: * Glipizide 5 mg PO BID * Ozempic 0.25 mg SC weekly HbA1c: 9.1% (11/19/24) ASSESSMENT: * SC is an 89 year old female admitted with acute hypoxic respiratory failure likely secondary to acute bronchitis * Pharmacy consulted for glycemic management this afternoon due to steroid- induced hyperglycemia * Currently ordered prednisone 40 mg PO daily * Will increase basal and tighten bolus parameters today PLAN FOR INPATIENT GLYCEMIC CONTROL: * Hold outpatient oral diabetes medications * Basal insulin * Lantus 8 units SC this AM * Lantus 15 units SC x 1 at time of consult * Reassess in AM * Bolus insulin * NovoLog per scale ACHS or Q6hrs while NPO * Goal Range: Low 110 mg/dL - High 140 mg/dL * Correction Factor: 20 mg/dL/unit * Nutritional / Prandial insulin per carb ratio of 1 unit per 6 grams CHO consumed
[2024-11-19] MEDS: WARFARIN SOD 3 MG TAB PO SCH (17:11)
[2024-11-19] MEDS: MELATONIN 3 MG TAB PO PRN (21:16)
[2024-11-20 07:41] LABS: Calcium 10.4 mg/dl (8.6-10.3); Potassium 4.2 mmol/L (3.5-5.1)
[2024-11-20 07:47] LABS: BUN Creatinine Ratio 35.8 (10-20); Creatinine Clr Calc Pharmacy 25.1 ml/min
[2024-11-20] MEDS: LANTUS PER UNIT CHARGE SC SCH (08:31)
[2024-11-20 08:50] LABS: INR 1.6 (0.9-1.1); Prothrombin Time 16.4 Seconds (9.0-12.0)
[2024-11-20 09:32] LABS: Hematocrit (blood only) 35.8 % (37.0-47.0); Hemoglobin 11.8 g/dl (12.0-16.0); Mean Corpuscular Hemoglobin 29.6 pg (25.0-34.0); Mean Corpuscular Volume 89.7 fL (80.0-100.0); Mean Platelet Volume 11.9 fL (9.4-12.4); Nucleated RBC # (auto) 0.03 K/uL (0.00-0.12); Nucleated RBC % (auto) 0.3 %; Platelet Count 175 K/uL (130-400); RDW Coefficient of Variation 17.4 % (11.5-14.5); RDW Standard Deviation 57.3 fL (36.4-46.3); Red Blood Count 3.99 M/uL (4.20-5.40); White Blood Count 10.37 K/ul (4.8-10.8)
--- NOTE | 2024-11-20 14:09 | Pharmacy Report ---
Pharmacy Glycemic Short Note 2 - Date of Service November 20, 2024 - Glycemic Short BSG Results (Last 24 hours): 11/19/24 11/19/24 11/20/24 16:31 20:52 06:18 Glucose 185 H POC Glucose 292 H 229 H 11/20/24 11/20/24 07:37 11:41 Glucose POC Glucose 205 H 217 H OUTPATIENT ANTIDIABETIC REGIMEN: * Glipizide 5 mg PO BID * Ozempic 0.25 mg SC weekly HbA1c: 9.1% (11/19/24) ASSESSMENT: 11/20 * Fasting continued to be elevated this morning- slight increase in basal; consider addition of NPH in AM however, did not implement at this time as hyperglycemia seem to be throughout day at current * Overall BSG trend is lower although still in the low 200s, will continue to monitor current parameters with adjustments tomorrow if still persistently elevated 11/19 * SC is an 89 year old female admitted with acute hypoxic respiratory failure likely secondary to acute bronchitis * Pharmacy consulted for glycemic management this afternoon due to steroid-in duced hyperglycemia * Currently ordered prednisone 40 mg PO daily * Will increase basal and tighten bolus parameters today PLAN FOR INPATIENT GLYCEMIC CONTROL: * Hold outpatient oral diabetes medications * Basal insulin * Lantus 25 units sq qAM * Bolus insulin * NovoLog per scale ACHS or Q6hrs while NPO * Goal Range: Low 110 mg/dL - High 140 mg/dL * Correction Factor: 20 mg/dL/unit * Nutritional / Prandial insulin per carb ratio of 1 unit per 5 grams CHO consumed
--- NOTE | 2024-11-20 15:05 | Hospitalist Progress Note ---
Date of Service November 20, 2024 Assessment & Plan (1) Hypoxia: (2) Acute bronchitis due to human metapneumovirus: (3) Abnormal urinalysis: (4) Diabetic ulcer of left heel: (5) Stage III pressure ulcer of buttock: Plan Patient is an 89-year-old female with past medical history significant for T2DM, HTN, HLD, chronic diastolic CHF, persistent atrial fibrillation anticoagulated on warfarin, pulmonary HTN, gouty arthropathy, COPD, CKD stage IV, bilateral macular degeneration, morbid obesity and other problems listed below who presented to the ED secondary to referral from the [place] wound care [facility] due to hypoxia. #Acute hypoxic respiratory failure #Acute bronchitis 2/2 human metapneumovirus Continue Zithromax x 3-day course (EOT 11/20) Continue prednisone 40mg daily x 5-day course (EOT 11/22) Continue viv Duonebs, ISP/FV use PRN antitussives Wean O2 as tolerated --> repeat checks of O2 sat on RA, pt's baseline O2 sat likely ~88-90% #Abnormal UA UA 4+ bacteria, 3+ LE Initially started on IV Rocephin --> however had no urinary complaints on further questioning therefore Rocephin stopped Suspect contaminated sample #Left heel diabetic ulcer -- POA #Stage III buttock pressure ulcer -- POA F/w [place] [facility] Aquacel AG daily, appreciate wound care consult Off loading as much as possible, pt wheelchair-bound at baseline #Chronic afib Continue metoprolol, diltiazem, digoxin and warfarin Home warfarin remg M/W/F, 3mg Sun/Tue/Thur/Sat INR still slightly subtherapeutic --> community health for 3mg warfarin today based on home reg Will give 4mg warfarin today and reassess INR in AM #Chronic diastolic CHF Continue Lasix 80mg daily Weight remains stable Continue daily weights, close I&Os #T2DM Poorly controlled, Hgb A1c 9.3 as of 09/2024 Updated Hgb A1c 9.1% Lantus/NovoLog per protocol Hold glipizide and Ozempic (recently started in October) while inpt Appreciate assistance of glycemic pharm DM educator consult placed #Chronic BLE edema/venous stasis Continue Lasix Wound care #CKD stage IV Cr remains stable Baseline Cr ~1.8-2.2 Continue to monitor #Elevated troponin Suspect in setting of CKD No CP, EKG stable #Morbid obesity, BMI 45.4 Encourage diet/lifestyle modifications DVT Prophylaxis: warfarin Disposition: Hopeful d/c home 2morrow; above plans discussed w/ pt's daughter and primary caregiver (lives w/ her), Nessa, at bedside this afternoon. Nessa inquiring about services. Pt currently seen 1x/week at home for wound care through [facility] per Nessa. Will consult CM. Patient seen in collaboration with Dr. Fernandes. Please see addendum. I spent a total of 38 minutes coordinating, documenting, and providing care for this patient excluding time spent in the performance of separately billed services or time spent by another provider/QHP. This included personally reviewing all current laboratories and imaging studies, medical reconciliation, outpatient chart review and discussion with specialists. This chart was completed in part utilizing Speech Voice Recognition Software. Grammatical errors, random word insertions, pronoun errors, and incomplete sentences are an occasional consequence of this system due to software limitations, ambient noise, and hardware issues. Any formal questions or concerns about the content, text, or information contained within the body of this dictation should be directly addressed to the provider for clarification. Admission and Anticipated Discharge Date Admission Date: November 18, 2024 Supervising Physician Co-Signing Physician Notes Patient seen and examined at bedside. Patient states she feels at her baseline and would like to go home. No symptoms. On exam, elderly appearing lady, chronic wounds on bilateral LE and bilateral feet, some wheezing on exam, mild cough noted. Patient has metapneumovirus causing acute hypoxic respiratory failure. Test on pulse ox in room shows 91% consistently on room air. Does not walk per patient at baseline. Family has concerns regarding ability to care for at home, will attempt to order home health therapy for homegoing tomorrow. I have seen and discussed the case with the collaborating advanced practitioner. I agree with the above H&P. I have reviewed and confirmed the patients medical history, the findings on physical examination, and the patients diagnosis and treatment plan with Ana POWER and agree with the information documented. I spent a total of 20 minutes coordinating, documenting, and providing care for this patient excluding time spent in the performance of separately billed services. All of the aforementioned completed outside of collaborating with the assigned advanced practitioner for a full treatment plan. I have reviewed the advanced practitioner's documentation, and I agree with, and take responsibility for the plan of care Subjective Patient seen and examined in W362-1. Cough still mostly nonproductive. Denies any SOB or chest pain. Afebrile. No urinary complaints. Family at bedside. Review of Systems Review of Systems: At least ten systems reviewed and negative, except as noted in the subjective section. Physical Exam Physical Exam: General: Elderly, obese, NAD, sitting up in bed, A&Ox4, very pleasant HEENT: Normocephalic, atraumatic, oropharynx moist Respiratory: 2L O2 via NC, diffuse exp wheezing heard throughout - improving, no rales/rhonchi, normal resp effort Cardiovascular: Tachycardic rate, IIR, + systolic murmur, chronic BLE venous stasis, dressing on both feet/waffle boots Abdomen/GI: Active bowel sounds, soft, nontender to palpation in all quadrants Extremities/MSK: Minimal ROM of BLE d/t edema, wheelchair-bound at baseline Neurologic: No overt focal deficits, CN's II-XI not formally tested but appear grossly intact bilaterally Results & Data Results & Data Vital Signs (Past 12 Hours) Vital Signs Temp Pulse Resp BP Pulse Ox Pulse Ox O2 Del Method 11/20/24 11:42 88 L 11/20/24 09:11 Nasal Cannula 11/20/24 08:43 88 93 Nasal Cannula 11/20/24 07:35 36.3 C L 91 H 20 149/82 H 90 Nasal Cannula O2 Flow Rate O2 Flow Rate 11/20/24 11:42 0 11/20/24 09:11 2 11/20/24 08:43 2 11/20/24 07:35 4 Laboratory Results Short CBC 11/20/24 Range/Units 06:18 WBC 10.37 (4.8-10.8) K/ul Hgb 11.8 L (12.0-16.0) g/dl Hct 35.8 L (37.0-47.0) % Plt Count 175 (130-400) K/uL BMP 11/20/24 06:18 Sodium 137 Potassium 4.2 Chloride 97 L Carbon Dioxide 31 BUN 67 H Creatinine 1.87 H Glucose 185 H Calcium 10.4 H (4) Diabetic ulcer of left heel Diabetes mellitus type: type 2 Non-pressure ulcer stage: unspecified non- pressure ulcer stage Qualified Code(s): E11.621 - Type 2 diabetes mellitus with foot ulcer; L97.429 - Non-pressure chronic ulcer of left heel and midfoot with unspecified severity (5) Stage III pressure ulcer of buttock Laterality: unspecified laterality Qualified Code(s): L89.303 - Pressure ulcer of unspecified buttock, stage 3
[2024-11-20 16:10] VITALS: RESP 18
[2024-11-20] MEDS: WARFARIN SOD 4 MG TAB PO ONE (17:19)
[2024-11-21 07:13] VITALS: BP 138/86; TEMP 98.2
[2024-11-21 08:05] LABS: BUN Creatinine Ratio 32.9 (10-20); Calcium 10.2 mg/dl (8.6-10.3); Magnesium 1.9 mg/dl (1.7-2.4); Potassium 3.8 mmol/L (3.5-5.1)
[2024-11-21 08:09] LABS: INR 1.6 (0.9-1.1); Prothrombin Time 16.7 Seconds (9.0-12.0)
[2024-11-21 08:29] LABS: Basophils # (auto) 0.02 K/uL (0.00-0.20); Basophils % (auto) 0.2 %; Hemoglobin 12.1 g/dl (12.0-16.0); Immature Granulocytes % (auto) 1.9 %; Lymphocytes # (auto) 1.08 K/uL (1.20-3.40); Lymphocytes % (auto) 10.5 %; Mean Corpuscular Hemoglobin 29.2 pg (25.0-34.0); Mean Corpuscular Hgb Conc 32.7 g/dL (32.0-36.0); Mean Corpuscular Volume 89.4 fL (80.0-100.0); Mean Platelet Volume 10.8 fL (9.4-12.4); Monocytes # (auto) 0.99 K/uL (0.11-0.59); Monocytes % (auto) 9.6 %; Neutrophils # (auto) 8.02 K/uL (1.40-6.50); Neutrophils % (auto) 77.8 %; Nucleated RBC # (auto) 0.03 K/uL (0.00-0.12); Nucleated RBC % (auto) 0.3 %; Platelet Count 206 K/uL (130-400); RDW Coefficient of Variation 17.4 % (11.5-14.5); RDW Standard Deviation 56.9 fL (36.4-46.3); Red Blood Count 4.14 M/uL (4.20-5.40); White Blood Count 10.31 K/ul (4.8-10.8)
[2024-11-21 08:32] VITALS: PULSE 85; O2SAT 87
--- NOTE | 2024-11-21 13:20 | Discharge Summary ---
Discharge Summary Date of Service November 21, 2024 Principal Dx & Hospital Course #1 = Principal Diagnosis (1) Hypoxia: (2) Acute bronchitis due to human metapneumovirus: (3) Abnormal urinalysis: (4) Diabetic ulcer of left heel: (5) Stage III pressure ulcer of buttock: Plan Patient is an 89-year-old female with past medical history significant for T2DM, HTN, HLD, chronic diastolic CHF, persistent atrial fibrillation anticoagulated on warfarin, pulmonary HTN, gouty arthropathy, COPD, CKD stage IV, bilateral macular degeneration, morbid obesity and other problems listed below who presented to the ED secondary to referral from the [place] wound care clinic due to hypoxia in setting of viral bronchitis. #Acute hypoxic respiratory failure #Acute bronchitis 2/ human metapneumovirus Completed Zithromax x 3-day course, completed 11/20 Continue prednisone 40mg daily x 5-day course, due to complete tomorrow, 11/22 PRN antitussives 2 step ordered - requiring 2 L O2 at rest to maintain baseline, provided script for home O2 with goal to maintain O2 88-90% with COPD history Discussed reviewing O2 saturation at PCP follow up - may only require PRN oxygen or be able to wean completely once bronchitis fully resolves #Left heel diabetic ulcer -- POA #Stage III buttock pressure ulcer -- POA Aquacel AG daily, appreciate wound care consult Off loading as much as possible, pt wheelchair-bound at baseline Follow up with [place] wound care clinic as scheduled #Chronic afib Continue metoprolol, diltiazem, digoxin and warfarin INR still slightly subtherapeutic at 1.6 - given 6mg coumadin x 1 today Home warfarin remg M/W/F, 3mg Sun/Tue/Thur/Sat on discharge Repeat INR within 3-5 days #Chronic diastolic CHF Continue Lasix 80mg daily Weight remains stable Continue daily weights, close I&Os #T2DM Poorly controlled, Hgb A1c 9.3 as of 09/2024 Updated Hgb A1c 9.1% Given uncontrolled DM, will initiate insulin glargine at 5u daily to start, PCP to adjust Discontinued glipizide and Ozempic (recently started in October) while inpt Per Gracy Lomax ordered materials: 1.) Insulin glargine pen 2.) Pen Needle 32 gauge x 5/32- to inject. Insurance requires frequency of use be indicated on the prescription for coverage. #Chronic BLE edema/venous stasis Continue Lasix Wound care #CKD stage IV Cr remains stable Baseline Cr ~1.8-2.2 Continue to monitor #Elevated troponin Suspect in setting of CKD No CP, EKG stable #Morbid obesity, BMI 45.4 Encourage diet/lifestyle modifications Discussed plan for discharge at length with daughter Nessa at bedside. CM helped to coordinated transfer home in van in wheelchair. Enrolled in home health, strong family support. Patient seen in collaboration with Dr. Fernandes. Please see addendum. Notes For Next Care Provider Viral bronchitis improving, requiring O2 at time of dc PCP follow up for new insulin for DM II Repeat INR later this week for subtherapeutic INR Medication Changes From Visit Started insulin for uncontrolled DMII, 2 step O2 requirement 2L NC, ongoing wound care follow up Admission HPI Per Admitting Provider This is an 89-year-old female who has a significant past medical history of T2DM, HTN, HLD, persistent atrial fibrillation anticoagulant on warfarin, pulmonary hypertension, gouty arthropathy, CKD stage IV, b/l macular degeneration bilaterally, morbid obesity who presents to ED secondary to referral from wound care due to hypoxia. History obtained from patient, daughter and great granddaughter at bedside. Prior to ED evaluation patient was being seen in the wound clinic for her routine follow-up for her chronic left heel wound that had recently reopened and a sacral wound. Upon evaluation there she was found to be hypoxic in the high 80s. She was referred to ED via EMS for further evaluation. Daughter states that she recently got over an upper resp iratory infection and feels that she has passed it to her mother. Patient started with a dry cough since Thursday. Patient denies any fever, chills, sweats, lightheadedness, dizziness, sinus congestion, sore throat, hemoptysis, shortness of breath at rest, nausea, vomiting, abdominal pain. She is mostly incontinent of urine and does wear a depends. She overall has had a decreased appetite recently due to recently being started on Ozempic. Patient lives alone at home but does have 24/7 care. She is mostly wheelchair-bound and does use a sit to stand Max lift for transfers. She has been compliant with her medications. In ED patient required 2 L of oxygen via nasal cannula. She did test positive for human metapneumovirus. She had mildly elevated troponin at 17.4, BNP at 127, stable BUN and creatinine of 56 and 1.94, INR 1.8. Chest x- ray was reading mild CHF. Family notes unable to obtain patient weight due to her being wheelchair-bound. They feel her lower extremity chronic swelling is actually improved from baseline. She received a nebulizer treatment in ED. Admission Exam Per Admitting Provider Constitutional: Elderly, F, Obese, vitals as above, NAD, sitting up in bed, pleasant, conversing easily Head: Normocephalic, Atraumatic Eyes: conjunctivae normal, anicteric sclerae ENMT: external ear and nose normal, oropharynx normal Neck: trachea midline, no thyromegaly normal visual inspection Respiratory: 2L O2 via NC, prolonged exp phase with exp wheezing b/l, no rales/rhonchi, normal respiratory effort Cardiovascular: IRR/IRR,2/6 ROHAN noted RUSB, chronic b/l venous stasis with nonpitting edema, compression dressing in place Vessels: no JVD or carotid bruit Chest: normal inspection of chest Abdomen: obese, S, NT, ND +BS x 4 Musculoskeletal: no cyanosis or clubbing, arom x 4, minimal use of ROM to b/l lower ext Skin: no rashes, warm and dry normal turgor Neurologic: no face palsy, no dysarthria CN's II-XI intact bilaterally and moves all extremities Psychiatric: A+Ox3, euthymic affect Discharge Exam Gen: WD/WN, NAD, sitting in bed, morbidly obese, A&Ox3, pleasant HEENT: Normocephalic, atraumatic Lung: scattered rhonchi, decreased breath sound bilaterally Heart: Regular rate, regular rhythm Abdomen: Soft, NT, ND +BS x 4 Extremities: no edema Skin: Warm, no rash. Sacral wound with small open areas, no purulent drainage or surrounding erythema, chronic in appearance. L heel wrapped, c/d/i Updated Medication List Medication Instructions Recorded Confirmed Type allopurinol 300 mg tablet 300 mg PO QAM 08/15/22 11/18/24 History apple cider vinegar 500 mg tablet 500 mg PO PM 08/15/22 11/18/24 History aspirin 81 mg tablet,delayed 81 mg PO HS 08/15/22 11/18/24 History release cholecalciferol (vitamin D3) 125 10,000 unit PO QPM 08/15/22 11/18/24 History mcg (5,000 unit) tablet (Vitamin D3) cyanocobalamin (vitamin B-12) 2,500 mcg PO HS 08/15/22 11/18/24 History 1,000 mcg tablet (Vitamin B-12) diltiazem HCl 120 mg 120 mg PO QAM 08/15/22 11/18/24 History capsule,extended release 24 hr pravastatin 40 mg tablet 40 mg PO HS 08/15/22 11/18/24 History vit C 250 mg-vit E 90 mg-zinc 40 1 tab PO BID 11/16/22 11/18/24 History mg-copper 1 [id number] capsule (PreserVision AREDS-2) digoxin 250 mcg (0.25 mg) tablet 125 mcg PO TUTHSA@0900 01/05/23 11/18/24 History loratadine 10 mg tablet (Claritin) 10 mg PO DAILY 05/21/24 11/18/24 History metoprolol succinate 50 mg 50 mg PO QAM 05/21/24 11/18/24 History tablet,extended release 24 hr nystatin 100,000 unit/gram topical 1 applic topical TID PRN Other 05/21/24 11/18/24 History powder Lactobacillus acidophilus 1,200 mg PO DAILY #30 caps 06/08/24 11/18/24 Rx furosemide 80 mg tablet (Lasix) 80 mg PO DAILY 07/08/24 11/18/24 History famotidine 20 mg tablet (Pepcid) 20 mg PO BID 08/05/24 11/18/24 History warfarin 2 mg tablet 2 mg PO MOWEFR@1600 11/18/24 11/18/24 History warfarin 2 mg tablet 3 mg PO SUTUTHSA@1600 11/18/24 11/18/24 History insulin glargine 100 unit/mL (3 5 unit (0.05 mL) subcut QAM #15 mL 11/21/24 Rx mL) subcutaneous pen pen needle, diabetic 32 gauge x #50 ea 11/21/24 Rx 5/32" (Pen Needle) prednisone 20 mg tablet 40 mg (2 x 20 mg) PO DAILY #2 tabs 11/21/24 Rx Hospital Stay Data Consultations 11/18/24 14:16 ED Decision to Admit Stat Pending Results Patient Have Any Pending Studies at Discharge: No Discharge Instructions Given to Patient (Per Discharging Provider) MEDICATION CHANGES: NEW: Insulin glargine 5 units daily Continue one more day of prednisone 40mg (2 tabs) to complete course tomorrow STOP: Glipizide and Ozempic PENDING TEST RESULTS: None RECOMMENDATIONS FOR FOLLOW-UP: Follow up with PCP as scheduled. Please continue Coumadin as you've been taking at home and repeat INR in 3-5 days. You are requiring 2 L oxygen via nasal cannula in setting of viral bronchitis. Please repeat O2 levels at Dr. Lee's office to determine if it is still needed continuously vs PRN. PT/OT recommending continue 24 hr supervision by family, home health. Follow up with wound care as scheduled for chronic wound on sacrum and L heel. Continue medication regimen as scheduled aside from changes noted above. OTHER INSTRUCTIONS: Seek medical attention if you have: * temperature above 101 * chest pain or trouble breathing * abdominal pain, nausea, vomiting * diarrhea, dark stools or bloody stools * any unanswered questions or concerns Call 911 if symptoms are severe. Please take good care of yourself. Call if you have any questions or problems. You can reach a [facility] hospitalist on duty at [facility] 24 hours a day by calling [phone]. Total Time Total Time Spent Total Time Spent (In Minutes): 60 Supervising Physician Co-Signing Physician Notes Patient seen and examined at bedside. Patient doing well today, daughter at bedside as well. On exam, minimal rhonchi noted, cough noted. Suspect chronic hypoxic respiratory failure with viral illness. 2 step performed, recommending home oxygen, ordered. Patient essentially non mobile at baseline. Will pursue home health agencies. Patient medically stable for discharge. I have seen and discussed the case with the collaborating advanced practitioner. I agree with the above H&P. I have reviewed and confirmed the patients medical history, the findings on physical examination, and the patients diagnosis and treatment plan with Yanni Tapia PA-C and agree with the information documented. I spent a total of 20 minutes coordinating, documenting, and providing care for this patient excluding time spent in the performance of separately billed services. All of the aforementioned completed outside of collaborating with the assigned advanced practitioner for a full treatment plan. I have reviewed the advanced practitioner's documentation, and I agree with, and take responsibility for the plan of care
[2024-11-21] MEDS: WARFARIN SOD 6 MG TAB PO ONE (13:43)
== END 2024-11-21 14:52 | disposition home health service (06) | DRG 202 ==
LOC: ED 11:19 → SUATTDRO 14:35 → 3W 14:35

== ENCOUNTER 2024-11-30 22:44 | Inpatient (IN) ==
--- NOTE | 2024-11-30 23:55 | Emergency Department Note ---
Impression & Plan Acute renal failure, Acute hyponatremia admit to the [facility] ED Provider Note NAME: KATIA CHENG AGE: 89 SEX: Female INFORMANT: Patient ED PROVIDER(S): Thelma Avalos DO CHIEF COMPLAINT: Extremity edema; no urine production PLAN: Disposition: admit to the [facility] MEDICAL DECISION MAKING: This is AN 89-year-old female patient with a history of heart failure and renal failure who presents to the emergency department with extremity edema and no urine production. Patient takes 80 mg of Lasix daily and drank 90 mL of fluid today and produced no urine. Family describes worsening orthopnea. laboratory studies revealed no leukocytosis. Hemoglobin was 11.1. Sodium was significantly low at 124. BUN was extremely elevated at 100 as was the creatinine at 4.16. Patient's baseline is around 2. Glucose was 208. Troponin was slightly elevated at 26. Bladder scan was noted to be 122. Chest x-ray showed no significant evidence of congestive heart failure. Patient was discharged to home on insulin but otherwise there was no other new significant medications. She did take Ozempic yesterday. I discussed the case with the [facility] and they will evaluate for further inpatient care. Care/management discussed with: manager background and [facility] Triage Nursing notes: reviewed and agree With them. Vital Signs: reviewed and unremarkable Additional History obtained from: most of history was obtained from the patient's daughter who is at the bedside Chronic Medical/Social Conditions affecting care: congestive heart failure-the patient wears 2 L of home oxygen; end-stage renal disease Prior/ Outside/ External records reviewed: I did review the inpatient records for which the patient was discharged to home on 11/22. Differential Diagnosis: Acute renal failure, congestive heart failure, cardiac ischemia, hypoglycemia, hyponatremia Diagnostics, independently interpreted by me: ECG: atrial fibrillation at a rate of [address] segment depression in leads I and aVL which is unchanged from previous EKGs. Cardiac Monitoring: atrial fibrillation at a rate of 72 Imaging studies: portable chest x-ray: No significant pleural effusions or evidence of congestive heart failure as per my independent interpretation. HPI: 89 year old Female arrives for evaluation of extremity edema and no urine production. Patient takes 80 mg of Lasix daily and drank 90 mL of fluid today and produced no urine. Family describes worsening orthopnea. . PAST MEDICAL HISTORY: See Below, PAST SURGICAL HISTORY: See Below, SOCIAL HISTORY: See Below, HOME MEDICATIONS: See list ALLERGIES: none VITALS: See Below PHYSICAL EXAMINATION: HEENT: Head - normocephalic and atraumatic. Pupils are equal, round, and reactive to light. Extraocular eye muscles are intact, and sclera are anicteric. Nose - moist nasal mucosa without discharge. Mouth - moist buccal mucosa. Oropharynx is nonerythematous and there is no tonsillar exudate or edema noted. Neck: Supple; no JVD, nuchal rigidity, cervical lymphadenopathy. Heart: Irregularly irregular rhythm with controlled rate. There is a normal S1 and S2 with no murmurs, clicks, or gallops appreciated. Lungs: Clear to auscultation bilaterally with no wheezes, rales, or rhonchi. Abdomen: Soft, completely nontender, nondistended, with good bowel sounds. There are no palpable pulsatile masses or hepatosplenomegaly. There is no guarding, rigidity, or rebound noted. Extremities: Moderate edema noted of both arms and both legs that seem to be pitting in the lower extremities. Skin: warm and dry with good turgor and no rashes. Emergency Department course: The patient was evaluated in room C-11. A complete history and physical was performed. Previous electronic medical records were reviewed. Laboratory studies are drawn as above. Twelve-lead EKG was obtained as described above. An order was placed for continuous cardiac monitoring. The patient was in atrial fibrillation at a rate of 72. A bladder scan was performed. A portable chest x-ray was performed. I discussed the case with the [facility] and they will evaluate for further inpatient care. Past Med/Surg History Problem List (Updated 12/01/24 @ 04:13 by Antoine Magdaleno MD) Oliguria and anuria Acute bronchitis due to human metapneumovirus Infection due to human metapneumovirus (hMPV) (Acute) Hypoxia (Acute) URI (upper respiratory infection) Stage III pressure ulcer of buttock (Acute) Abnormal ankle brachial index (ALEX) (Acute) Acute renal failure superimposed on stage 4 chronic kidney disease Acute on chronic diastolic (congestive) heart failure Acute renal failure superimposed on stage 3 chronic kidney disease Pressure injury of left heel, unstageable Stage II pressure ulcer of right heel Anemia (Acute) TREMAYNE (acute kidney injury) (Acute) Acute hyperglycemia (Acute) Diabetic infection of left foot (Acute) Diabetic foot ulcer (Acute) Callus of foot (Acute) Hypomagnesemia (Acute) Abnormal urinalysis Ambulatory dysfunction (Acute) Hypertension (Acute) Type 2 diabetes mellitus (Acute) Diastolic dysfunction Persistent atrial fibrillation (Acute) Medical History CKD (chronic kidney disease) stage 4, GFR 15-29 ml/min History of breast cancer On warfarin therapy Surgical History History of total right knee replacement History of total left knee replacement History of total abdominal hysterectomy History of cholecystectomy S/P mastectomy, bilateral Family History Other Family history non-contributory Social History Smoking Status: Never smoker Second Hand Exposure: No; Do You Dip or Chew Tobacco: No; Hx Alcohol Use: No Hx Substance Use: No Preferred Language: Moldovan Communication Ability: Effective [employer]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 Beliefs That Will Affect Care: None marital status: Current Living Situation: Family current occupational status: retired Feels Safe at Home: Yes Assistive Devices: Bedside Commode, Lift Chair, Mechanical Lift, Scooter/Electric Scooter and Walker Allergies Allergies Allergy/AdvReac Type Severity Reaction Status Date / Time No Known Allergies Allergy Verified 11/18/24 10:00 Home Meds Home Medications Medication Instructions Recorded Confirmed allopurinol 300 mg tablet 300 mg PO QAM 08/15/22 12/01/24 apple cider vinegar 500 mg tablet 500 mg PO PM 08/15/22 12/01/24 aspirin 81 mg tablet,delayed 81 mg PO QPM 08/15/22 12/01/24 release cholecalciferol (vitamin D3) 125 10,000 unit PO QPM 08/15/22 12/01/24 mcg (5,000 unit) tablet (Vitamin D3) cyanocobalamin (vitamin B-12) 1,000 mcg PO QPM 08/15/22 12/01/24 1,000 mcg tablet (Vitamin B-12) diltiazem HCl 120 mg 120 mg PO QAM 08/15/22 12/01/24 capsule,extended release 24 hr pravastatin 40 mg tablet 40 mg PO QPM 08/15/22 12/01/24 vit C 250 mg-vit E 90 mg-zinc 40 1 tab PO AMPM 11/16/22 12/01/24 mg-copper 1 [id number] capsule (PreserVision AREDS-2) loratadine 10 mg tablet (Claritin) 10 mg PO QAM 05/21/24 12/01/24 metoprolol succinate 50 mg 50 mg PO QAM 05/21/24 12/01/24 tablet,extended release 24 hr nystatin 100,000 unit/gram topical 1 applic topical TID PRN FUNGAL 05/21/24 12/01/24 powder RASH famotidine 20 mg tablet (Pepcid) 20 mg PO AMPM 08/05/24 12/01/24 warfarin 2 mg tablet 2 mg PO MOWEFR 11/18/24 12/01/24 warfarin 2 mg tablet 3 mg PO SUTUTHSA 11/18/24 12/01/24 semaglutide 0.25 mg or 0.5 mg (2 0.25 mg subcut WK 11/30/24 12/01/24 mg/3 mL) subcutaneous pen injector (Ozempic) Saccharomyces boulardii 250 mg 250 mg PO QAM 12/01/24 12/01/24 capsule (Florastor) albuterol sulfate 2.5 mg/3 mL 2.5 mg continuous nebulization BID 12/01/24 12/01/24 (0.083 %) solution for nebulization bisacodyl 5 mg tablet,delayed 10 mg PO HS PRN Constipation 12/01/24 12/01/24 release (Dulcolax (bisacodyl)) digoxin 125 mcg (0.125 mg) tablet 125 mcg PO 3XWK 12/01/24 12/01/24 furosemide 40 mg tablet 80 mg PO QAM 12/01/24 12/01/24 insulin glargine 100 unit/mL (3 5 - 8 unit subcut QAM 12/01/24 12/01/24 mL) subcutaneous pen (Lantus Solostar U-100 Insulin) Previous Rx's Medication Instructions Recorded pen needle, diabetic 32 gauge x #50 ea 11/21/24" (Pen Needle) Results & Data (ED) Vital Signs Vital Signs - 24 hr 11/30/24 22:50 11/30/24 22:51 11/30/24 22:55 Temperature 36.8 C Temperature Source Oral Pulse Rate 71 81 Pulse Rate [Apical] Pulse Rate from SpO2 Sensor Respiratory Rate 18 22 Respiratory Effort / Characteristics Non-Labored Spontaneous Respiratory Depth Normal Respiratory Pattern Blood Pressure 147/86 H 147/86 H Blood Pressure [Right Arm] Blood Pressure Mean 99 106 Blood Pressure Mean [Right Arm] Pulse Oximetry 96 97 Oxygen Delivery Method Nasal Cannula Nasal Cannula Oxygen Flow Rate 2 2 Sepsis Recent Fever Within 48 Hours No Sepsis New/Unexplained Change in Mental Status N/A Sepsis Action Taken by Nursing No Action Required 11/30/24 23:06 11/30/24 23:15 11/30/24 23:30 Temperature Temperature Source Pulse Rate 74 73 Pulse Rate [Apical] 76 Pulse Rate from SpO2 Sensor 71 Respiratory Rate 18 24 19 Respiratory Effort / Characteristics Non-Labored Spontaneous Respiratory Depth Normal Respiratory Pattern Regular Blood Pressure 177/99 H 155/78 H Blood Pressure [Right Arm] 155/78 H Blood Pressure Mean 128 103 Blood Pressure Mean [Right Arm] 103 Pulse Oximetry 97 96 96 Oxygen Delivery Method Nasal Cannula Nasal Cannula Nasal Cannula Oxygen Flow Rate 2 2 2 Sepsis Recent Fever Within 48 Hours Sepsis New/Unexplained Change in Mental Status Sepsis Action Taken by Nursing 12/01/24 00:00 12/01/24 00:18 12/01/24 00:30 Temperature Temperature Source Pulse Rate 77 72 69 Pulse Rate [Apical] Pulse Rate from SpO2 Sensor 72 72 71 Respiratory Rate 21 22 18 Respiratory Effort / Characteristics Respiratory Depth Respiratory Pattern Blood Pressure 159/97 H 153/79 H Blood Pressure [Right Arm] Blood Pressure Mean 117 103 Blood Pressure Mean [Right Arm] Pulse Oximetry 97 98 97 Oxygen Delivery Method Nasal Cannula Nasal Cannula Nasal Cannula Oxygen Flow Rate 2 2 2 Sepsis Recent Fever Within 48 Hours Sepsis New/Unexplained Change in Mental Status Sepsis Action Taken by Nursing 12/01/24 00:30 12/01/24 01:00 12/01/24 01:18 Temperature Temperature Source Pulse Rate 68 69 Pulse Rate [Apical] 71 Pulse Rate from SpO2 Sensor 70 72 Respiratory Rate 19 19 20 Respiratory Effort / Characteristics Non-Labored Spontaneous Respiratory Depth Normal Respiratory Pattern Regular Blood Pressure 153/79 H Blood Pressure [Right Arm] 149/92 H Blood Pressure Mean 108 Blood Pressure Mean [Right Arm] 111 Pulse Oximetry 97 98 96 Oxygen Delivery Method Nasal Cannula Nasal Cannula Nasal Cannula Oxygen Flow Rate 2 2 2 Sepsis Recent Fever Within 48 Hours Sepsis New/Unexplained Change in Mental Status Sepsis Action Taken by Nursing 12/01/24 01:30 12/01/24 02:00 Temperature Temperature Source Pulse Rate 69 67 Pulse Rate [Apical] Pulse Rate from SpO2 Sensor 71 69 Respiratory Rate 20 20 Respiratory Effort / Characteristics Respiratory Depth Respiratory Pattern Blood Pressure 149/92 H 159/87 H Blood Pressure [Right Arm] Blood Pressure Mean 118 121 Blood Pressure Mean [Right Arm] Pulse Oximetry 99 95 Oxygen Delivery Method Nasal Cannula Nasal Cannula Oxygen Flow Rate 2 2 Sepsis Recent Fever Within 48 Hours Sepsis New/Unexplained Change in Mental Status Sepsis Action Taken by Nursing Laboratory Data 11/30/24 23:02 11/30/24 23:02 Lab Results 11/30/24 Range/Units 23:02 WBC 9.75 (4.8-10.8) K/ul RBC 3.86 L (4.20-5.40) M/uL Hgb 11.1 L (12.0-16.0) g/dl Hct 33.7 L (37.0-47.0) % MCV 87.3 (80.0-100.0) fL MCH 28.8 (25.0-34.0) pg MCHC 32.9 (32.0-36.0) g/dL RDW Std Deviation 54.5 H (36.4-46.3) fL RDW Coeff of Eric 17.4 H (11.5-14.5) % Plt Count 213 (130-400) K/uL MPV 12.2 (9.4-12.4) fL Immature Gran % (Auto) 0.8 % Neut % (Auto) 74.2 % Lymph % (Auto) 11.4 % [place] % (Auto) 8.8 % Eos % (Auto) 4.4 % Baso % (Auto) 0.4 % Neut # (Auto) 7.23 H (1.40-6.50) K/uL Lymph # (Auto) 1.11 L (1.20-3.40) K/uL [place] # (Auto) 0.86 H (0.11-0.59) K/uL Eos # (Auto) 0.43 (0.00-0.50) K/uL Baso # (Auto) 0.04 (0.00-0.20) K/uL Immature Gran # (Auto) 0.08 (0.01-0.20) K/uL Absolute Nucleated RBC 0.02 (0.00-0.12) K/uL Nucleated RBC % (auto) 0.2 % Sodium 124 L (136-145) mmol/L Potassium 4.2 (3.5-5.1) mmol/L Chloride 85 L (98-107) mmol/L Carbon Dioxide 25 (21-32) mmol/L Anion Gap 14 H (3-11) BUN 100 H (6-23) mg/dl Creatinine 4.16 H (0.6-1.2) mg/dl Est Cr Clr Drug Dosing 11.6 ml/min eGFR 9.79 BUN/Creatinine Ratio 24.0 H (10-20) Glucose 208 H (70-99(Fasting)) mg/dl Calcium 9.3 (8.6-10.3) mg/dl Total Bilirubin 0.6 (0.2-1.0) mg/dl AST 22 (13-39) U/L ALT 28 (7-52) U/L Alkaline Phosphatase 100 (34-104) U/L Troponin I High Sens 26.3 H (0-14) pg/ml B-Natriuretic Peptide 107 H (0-100) pg/ml Total Protein 7.3 (6.0-8.3) gm/dl Albumin 3.6 (3.4-5.0) gm/dl Globulin 3.7 (2.5-4.0) gm/dl Albumin/Globulin Ratio 1.0 (0.9-2) Imaging Data Radiologist's Impression: Chest X-Ray 11/30/24 23:49 EXAM: XR chest 1V portable CLINICAL HISTORY: Dyspnea. TECHNIQUE: An X-ray image of the chest is obtained in AP projection. COMPARISON: 11/18/2024. FINDINGS: Pulmonary Parenchyma: Emphysematous lungs. No evidence of consolidation, collapse, or focal opacities. No pulmonary nodules are identified. No evidence of pleural effusion or pleural thickening. Heart and Mediastinum: Heart size appears enlarged with splaying of the kym. No mediastinal widening or masses. No hilar or mediastinal lymphadenopathy. Aortic arch wall calcification noted, suggesting atherosclerotic changes. Bony Thorax: Bony thorax appears intact without fractures or deformities. Soft Tissues: Soft tissues overlying the chest wall are unremarkable. IMPRESSION: 1. Cardiomegaly. 2. Emphysematous lungs. 3. No consolidation, pneumothorax, or pleural effusion. 4. No interval changes. Electronically signed by Eder Smith 12-01-2024 02:05 AM Discharge Plan Visit Data Chief Complaint: Unable to Void Stated Complaint: Unable to Void, Swelling in Extremities ED Provider: Thelma Avalos Discharge Problem: Acute renal failure, Acute hyponatremia Patient Disposition: Admitted As Inpatient Condition: Fair Discharge Instructions Interventions: ED Discharge Assessment Last Done: 12/01/24 03:13
[2024-12-01 00:34] LABS: Hematocrit (blood only) 33.7 % (37.0-47.0); Hemoglobin 11.1 g/dl (12.0-16.0); Immature Granulocytes # (auto) 0.08 K/uL (0.01-0.20); Immature Granulocytes % (auto) 0.8 %; Mean Corpuscular Hemoglobin 28.8 pg (25.0-34.0); Mean Corpuscular Volume 87.3 fL (80.0-100.0); Platelet Count 213 K/uL (130-400); RDW Standard Deviation 54.5 fL (36.4-46.3); Red Blood Count 3.86 M/uL (4.20-5.40); White Blood Count 9.75 K/ul (4.8-10.8)
[2024-12-01 00:52] LABS: Alanine Aminotransferase 28.0 U/L (7-52); Albumin Globulin Ratio 1.0 (0.9-2); Alkaline Phosphatase 100.0 U/L (34-104); Anion Gap 14.0 (3-11); Bilirubin,Total 0.6 mg/dl (0.2-1.0); Blood Urea Nitrogen 100.0 mg/dl (6-23); Calcium 9.3 mg/dl (8.6-10.3); Carbon Dioxide 25.0 mmol/L (21-32); Chloride 85.0 mmol/L (98-107); Creatinine Clr Calc Pharmacy 11.6 ml/min; Globulin 3.7 gm/dl (2.5-4.0); Glucose 208.0 mg/dl (70-99(Fasting)); Potassium 4.2 mmol/L (3.5-5.1); Sodium 124.0 mmol/L (136-145); Total Protein 7.3 gm/dl (6.0-8.3)
--- NOTE | 2024-12-01 02:05 | XRay Report ---
EXAM: XR chest 1V portable CLINICAL HISTORY: Dyspnea. TECHNIQUE: An X-ray image of the chest is obtained in AP projection. COMPARISON: 11/18/2024. FINDINGS: Pulmonary Parenchyma: Emphysematous lungs. No evidence of consolidation, collapse, or focal opacities. No pulmonary nodules are identified. No evidence of pleural effusion or pleural thickening. Heart and Mediastinum: Heart size appears enlarged with splaying of the kym. No mediastinal widening or masses. No hilar or mediastinal lymphadenopathy. Aortic arch wall calcification noted, suggesting atherosclerotic changes. Bony Thorax: Bony thorax appears intact without fractures or deformities. Soft Tissues: Soft tissues overlying the chest wall are unremarkable. IMPRESSION: 1. Cardiomegaly. 2. Emphysematous lungs. 3. No consolidation, pneumothorax, or pleural effusion. 4. No interval changes. Electronically signed by Eder Smith 12-01-2024 02:05 AM
[2024-12-01 03:08] LABS: Appearance Urine Clear (Clear); Bacteria Urine Automated None Seen (None Seen); Glucose Urine UA Negative (Negative); RBC Urine Automated 0-2 /hpf (0-2); WBC Urine Automated 0-5 /hpf (0-5)
--- NOTE | 2024-12-01 03:22 | History & Physical Report ---
Date of Service December 01, 2024 Assessment & Plan (1) Oliguria and anuria: Plan: 89-year-old female with past medical history significant for type 2 diabetes, CKD stage IV, gout arthropathy, dyslipidemia, history of diabetic foot ulcer, COPD, on home oxygen 2 L, atrial fibrillation, hypertension, macular degeneration of left eye, morbid obesity, pressure ulcer left heel, who lives at home with her son and since May nonambulatory was brought in by daughter because of patient not micturating for about a day. Recently patient was admitted on 11/18/2024 and was discharged on 11/21/2024. She was admitted for hypoxemia and acute bronchitis due to human metapneumovirus. Patient still has some cough. No fevers. No chest pain or shortness of breath. No headache. Has some runny nose. No sore throat. Appetite is down. But today she drank about 90 ounces of water as she was not micturating. No abdominal pain. Normal bowel movements. Lower extremity is more swollen than usual. She has pressure ulcers in the sacral region and also left heel and she has home health nurse who checks on her. Currently saturating okay and hemodynamics are okay. Patient seems comfortable. Could tell her name. Knows that she in the hospital. Knows her date of . Thinks this is still October. But could tell current year. Patient says when she coughs she is micturating little bit. Placed Ramey catheter in the ER. Ramey drained about 50 mL of urine. As per staff her diaper was wet. Oliguria and anuria Since 1 day TREMAYNE on CKD stage IV Baseline creatinine 1.9-2 Presented with creatinine of 4.16 and BUN of 100 Potassium and CO2 okay Mental status okay Status post Ramey and drained about 50 mL. Diaper is also wet. Patient states she is micturating a little bit when she is coughing. Will follow CT abdomen pelvis Close monitor on telemetry Nephrology consult for further recommendations-plan for ns@100ml/hr for one litre and monitor for now.. Will follow urine studies. Hyponatremia Sodium 124 Follow repeat labs Currently n.p.o. and getting fluids Nephrology consulted Type 2 diabetes Hold home insulin Started semaglutide yesterday which will be held Sliding scale Glycemic pharmacy consult Close monitor Pressure ulcers Stage III sacral ulcers and also left heel callus Wound care Empiric Rocephin History of gout Hold allopurinol for now Atrial fibrillation Continue metoprolol and diltiazem Holding digoxin for TREMAYNE On Coumadin Follow PT/INR Hypertension On diltiazem and metoprolol succinate Will monitor Hyperlipidemia On statin COPD On home oxygen 2 L Continue home nebs Chronic diastolic CHF Holding home Lasix Has lower extremity edema we will check Dopplers getting fluids as above Diuretics as per nephrology Currently saturating okay and chest x-ray is okay Mild elevation troponin Mostly demand ischemia and TREMAYNE We will follow serial enzymes Morbid obesity Counseling Ambulate dysfunction Currently nonambulatory PT OT when stable DVT prophylaxis On warfarin will follow PT/INR Disposition Telemetry Full code. History of Present Illness Chief Complaint: TREMAYNE and anuria/Oliguria Primary Care Provider: Angeli Lee MD 89-year-old female with past medical history significant for type 2 diabetes, CKD stage IV, gout arthropathy, dyslipidemia, history of diabetic foot ulcer, COPD, on home oxygen 2 L, atrial fibrillation, hypertension, macular degeneration of left eye, morbid obesity, pressure ulcer left heel, who lives at home with her son and since May nonambulatory was brought in by daughter because of patient not micturating for about a day. Recently patient was admitted on 11/18/2024 and was discharged on 11/21/2024. She was admitted for hypoxemia and acute bronchitis due to human metapneumovirus. Patient still has some cough. No fevers. No chest pain or shortness of breath. No headache. Has some runny nose. No sore throat. Appetite is down. But today she drank about 90 ounces of water as she was not micturating. No abdominal pain. Normal bowel movements. Lower extremity is more swollen than usual. She has pressure ulcers in the sacral region and also left heel and she has home health nurse who checks on her. Currently saturating okay and hemodynamics are okay. Patient seems comfortable. Could tell her name. Knows that she in the hospital. Knows her date of . Thinks this is still October. But could tell current year. Patient says when she coughs she is micturating little bit. Placed Ramey catheter in the ER. Ramey drained about 50 mL of urine. As per staff her diaper was wet. Past medical history. As mentioned above Past surgical history. Total knee arthroplasty. Colonoscopy with biopsy. Breast biopsy. Bilateral simple mastectomy. Bilateral cataracts. Cholecystectomy. Removal of sharted left patella. Total abdominal hysterectomy. Social history. . No smoking. Alcohol rarely. No drug use. Family history. Father had NH. Sister has hypertension. Brother had NH. Granddaughter had thyroid cancer. Grandson had non-Hodgkin's lymphoma. Allergies Allergy/AdvReac Type Severity Reaction Status Date / Time No Known Allergies Allergy Verified 11/18/24 10:00 Home Medications Medication Instructions Recorded Confirmed Type allopurinol 300 mg tablet 300 mg PO QAM 08/15/22 12/01/24 History apple cider vinegar 500 mg tablet 500 mg PO PM 08/15/22 12/01/24 History aspirin 81 mg tablet,delayed 81 mg PO QPM 08/15/22 12/01/24 History release cholecalciferol (vitamin D3) 125 10,000 unit PO QPM 08/15/22 12/01/24 History mcg (5,000 unit) tablet (Vitamin D3) cyanocobalamin (vitamin B-12) 1,000 mcg PO QPM 08/15/22 12/01/24 History 1,000 mcg tablet (Vitamin B-12) diltiazem HCl 120 mg 120 mg PO QAM 08/15/22 12/01/24 History capsule,extended release 24 hr pravastatin 40 mg tablet 40 mg PO QPM 08/15/22 12/01/24 History vit C 250 mg-vit E 90 mg-zinc 40 1 tab PO AMPM 11/16/22 12/01/24 History mg-copper 1 [id number] capsule (PreserVision AREDS-2) loratadine 10 mg tablet (Claritin) 10 mg PO QAM 05/21/24 12/01/24 History metoprolol succinate 50 mg 50 mg PO QAM 05/21/24 12/01/24 History tablet,extended release 24 hr nystatin 100,000 unit/gram topical 1 applic topical TID PRN FUNGAL 05/21/24 12/01/24 History powder RASH famotidine 20 mg tablet (Pepcid) 20 mg PO AMPM 08/05/24 12/01/24 History warfarin 2 mg tablet 2 mg PO MOWEFR 11/18/24 12/01/24 History warfarin 2 mg tablet 3 mg PO SUTUTHSA 11/18/24 12/01/24 History pen needle, diabetic 32 gauge x #50 ea 11/21/24 12/01/24 Rx /32" (Pen Needle) semaglutide 0.25 mg or 0.5 mg (2 0.25 mg subcut WK 11/30/24 12/01/24 History mg/3 mL) subcutaneous pen injector (Ozempic) Saccharomyces boulardii 250 mg 250 mg PO QAM 12/01/24 12/01/24 History capsule (Florastor) albuterol sulfate 2.5 mg/3 mL 2.5 mg continuous nebulization BID 12/01/24 12/01/24 History (0.083 %) solution for nebulization bisacodyl 5 mg tablet,delayed 10 mg PO HS PRN Constipation 12/01/24 12/01/24 History release (Dulcolax (bisacodyl)) digoxin 125 mcg (0.125 mg) tablet 125 mcg PO 3XWK 12/01/24 12/01/24 History furosemide 40 mg tablet 80 mg PO QAM 12/01/24 12/01/24 History insulin glargine 100 unit/mL (3 5 - 8 unit subcut QAM 12/01/24 12/01/24 History mL) subcutaneous pen (Lantus Solostar U-100 Insulin) Past Med/Surg History Problem List (Updated 12/01/24 @ 04:13 by Antoine Magdaleno MD) Oliguria and anuria Acute bronchitis due to human metapneumovirus Infection due to human metapneumovirus (hMPV) (Acute) Hypoxia (Acute) URI (upper respiratory infection) Stage III pressure ulcer of buttock (Acute) Abnormal ankle brachial index (ALEX) (Acute) Acute renal failure superimposed on stage 4 chronic kidney disease Acute on chronic diastolic (congestive) heart failure Acute renal failure superimposed on stage 3 chronic kidney disease Pressure injury of left heel, unstageable Stage II pressure ulcer of right heel Anemia (Acute) TREMAYNE (acute kidney injury) (Acute) Acute hyperglycemia (Acute) Diabetic infection of left foot (Acute) Diabetic foot ulcer (Acute) Callus of foot (Acute) Hypomagnesemia (Acute) Abnormal urinalysis Ambulatory dysfunction (Acute) Hypertension (Acute) Type 2 diabetes mellitus (Acute) Diastolic dysfunction Persistent atrial fibrillation (Acute) Medical History CKD (chronic kidney disease) stage 4, GFR 15-29 ml/min History of breast cancer On warfarin therapy Surgical History History of total right knee replacement History of total left knee replacement History of total abdominal hysterectomy History of cholecystectomy S/P mastectomy, bilateral Family History Other Family history non-contributory Social History Smoking Status: Unknown if ever smoked Second Hand Exposure: No; Do You Dip or Chew Tobacco: No; Hx Alcohol Use: No Hx Substance Use: No Preferred Language: Citizen Of [place] Communication Ability: Effective Wigs Salesperson Required: No Beliefs That Will Affect Care: None marital status: Current Living Situation: Family current occupational status: retired Feels Safe at Home: Yes Assistive Devices: Bedside Commode, Lift Chair, Mechanical Lift, Oxygen - Continuous, Walker and Wheelchair Review of Systems Review of Systems: All systems reviewed & are unremarkable except as noted in HPI & below Physical Exam Physical Exam: General- Not in distress Head- atraumatic Eyes- PERRL. ENT- oropharynx clear Neck- supple, no JVD. Lungs- clear to auscultation no wheezing or crackles Heart- regular rate and rhythm; no murmur, no gallop. Abdomen- normal bowel sounds, soft, nontender, no distension Extremities- b/l lower extremity gross edema present, no erythema seen Neuro- alert, oriented x 3; PERRL, no facial palsy; no dysarthria; obeys simple commands Skin- stage 3 sacral ulcer, callus seen on left heel Results & Data Results & Data Vital Signs (Past 12 Hours) Vital Signs Temp Pulse Pulse Resp BP BP Pulse Ox 12/01/24 03:13 12/01/24 03:00 71 20 146/79 H 97 12/01/24 02:31 70 21 167/85 H 97 12/01/24 02:00 67 20 159/87 H 95 12/01/24 01:30 69 20 149/92 H 99 12/01/24 01:18 69 20 96 12/01/24 01:00 71 19 149/92 H 98 12/01/24 00:30 68 19 153/79 H 97 12/01/24 00:30 69 18 153/79 H 97 12/01/24 00:18 72 22 98 12/01/24 00:00 77 21 159/97 H 97 11/30/24 23:30 73 19 155/78 H 96 11/30/24 23:15 76 24 155/78 H 96 11/30/24 23:06 74 18 177/99 H 97 11/30/24 22:55 81 22 97 11/30/24 22:51 36.8 C 71 18 147/86 H 96 11/30/24 22:50 147/86 H O2 Del Method O2 Flow Rate 12/01/24 03:13 Nasal Cannula 2 12/01/24 03:00 Nasal Cannula 2 12/01/24 02:31 Nasal Cannula 2 12/01/24 02:00 Nasal Cannula 2 12/01/24 01:30 Nasal Cannula 2 12/01/24 01:18 Nasal Cannula 2 12/01/24 01:00 Nasal Cannula 2 12/01/24 00:30 Nasal Cannula 2 12/01/24 00:30 Nasal Cannula 2 12/01/24 00:18 Nasal Cannula 2 12/01/24 00:00 Nasal Cannula 2 11/30/24 23:30 Nasal Cannula 2 11/30/24 23:15 Nasal Cannula 2 11/30/24 23:06 Nasal Cannula 2 11/30/24 22:55 Nasal Cannula 2 11/30/24 22:51 Nasal Cannula 2 11/30/24 22:50 Diagnostic Findings Laboratory Results WBC 9.75 K/ul (4.8-10.8) 11/30/24 23:02 RBC 3.86 M/uL (4.20-5.40) L 11/30/24 23:02 Hgb 11.1 g/dl (12.0-16.0) L 11/30/24 23:02 Hct 33.7 % (37.0-47.0) L 11/30/24 23:02 MCV 87.3 fL (80.0-100.0) 11/30/24 23:02 MCH 28.8 pg (25.0-34.0) 11/30/24 23:02 MCHC 32.9 g/dL (32.0-36.0) 11/30/24 23:02 RDW Std Deviation 54.5 fL (36.4-46.3) H 11/30/24 23:02 RDW Coeff of Eric 17.4 % (11.5-14.5) H 11/30/24 23:02 Plt Count 213 K/uL (130-400) 11/30/24 23:02 MPV 12.2 fL (9.4-12.4) 11/30/24 23:02 Immature Gran % (Auto) 0.8 % 11/30/24 23:02 Neut % (Auto) 74.2 % 11/30/24 23:02 Lymph % (Auto) 11.4 % 11/30/24 23:02 [place] % (Auto) 8.8 % 11/30/24 23:02 Eos % (Auto) 4.4 % 11/30/24 23:02 Baso % (Auto) 0.4 % 11/30/24 23:02 Neut # (Auto) 7.23 K/uL (1.40-6.50) H 11/30/24 23:02 Lymph # (Auto) 1.11 K/uL (1.20-3.40) L 11/30/24 23:02 [place] # (Auto) 0.86 K/uL (0.11-0.59) H 11/30/24 23:02 Eos # (Auto) 0.43 K/uL (0.00-0.50) 11/30/24 23:02 Baso # (Auto) 0.04 K/uL (0.00-0.20) 11/30/24 23:02 Immature Gran # (Auto) 0.08 K/uL (0.01-0.20) 11/30/24 23:02 Absolute Nucleated RBC 0.02 K/uL (0.00-0.12) 11/30/24 23:02 Nucleated RBC % (auto) 0.2 % 11/30/24 23:02 Sodium 124 mmol/L (136-145) L 11/30/24 23:02 Potassium 4.2 mmol/L (3.5-5.1) 11/30/24 23:02 Chloride 85 mmol/L (98-107) L 11/30/24 23:02 Carbon Dioxide 25 mmol/L (21-32) 11/30/24 23:02 Anion Gap 14 (3-11) H 11/30/24 23:02 BUN 100 mg/dl (6-23) H 11/30/24 23:02 Creatinine 4.16 mg/dl (0.6-1.2) H 11/30/24 23:02 Est Cr Clr Drug Dosing 11.6 ml/min 11/30/24 23:02 eGFR 9.79 11/30/24 23:02 BUN/Creatinine Ratio 24.0 (10-20) H 11/30/24 23:02 Glucose 208 mg/dl (70-99(Fasting)) H 11/30/24 23:02 POC Glucose 218 mg/dl (70-99) H 12/01/24 04:02 Calcium 9.3 mg/dl (8.6-10.3) 11/30/24 23:02 Total Bilirubin 0.6 mg/dl (0.2-1.0) 11/30/24 23:02 AST 22 U/L (13-39) 11/30/24 23:02 ALT 28 U/L (7-52) 11/30/24 23:02 Alkaline Phosphatase 100 U/L (34-104) 11/30/24 23:02 Troponin I High Sens 26.3 pg/ml (0-14) H 11/30/24 23:02 B-Natriuretic Peptide 107 pg/ml (0-100) H 11/30/24 23:02 Total Protein 7.3 gm/dl (6.0-8.3) 11/30/24 23:02 Albumin 3.6 gm/dl (3.4-5.0) 11/30/24 23:02 Globulin 3.7 gm/dl (2.5-4.0) 11/30/24 23:02 Albumin/Globulin Ratio 1.0 (0.9-2) 11/30/24 23:02 Urine Color Yellow 12/01/24 02:35 Urine Appearance Clear (Clear) 12/01/24 02:35 Urine pH 5.0 (4.5-7.5) 12/01/24 02:35 Ur Specific [place] 1.010 (1.000-1.030) 12/01/24 02:35 Urine Protein Trace (Negative) H 12/01/24 02:35 Urine Glucose (UA) Negative (Negative) 12/01/24 02:35 Urine Ketones Negative (Negative) 12/01/24 02:35 Urine Blood Negative (Negative) 12/01/24 02:35 Urine Nitrite Negative (Negative) 12/01/24 02:35 Urine Bilirubin Negative (Negative) 12/01/24 02:35 Urine Urobilinogen Negative (Negative) 12/01/24 02:35 Ur Leukocyte Esterase Trace (Negative) H 12/01/24 02:35 Urine WBC (Auto) 0-5 /hpf (0-5) 12/01/24 02:35 Urine RBC (Auto) 0-2 /hpf (0-2) 12/01/24 02:35 U Hyaline Cast (Auto) 3-5 /lpf (0-2) H 12/01/24 02:35 U Epithel Cells (Auto) 3-5 /hpf (0-2) H 12/01/24 02:35 Urine Bacteria (Auto) None Seen (None Seen) 12/01/24 02:35 Urine Comment 12/01/24 02:35 Impressions Chest X-Ray 11/30/24 23:49 EXAM: XR chest 1V portable CLINICAL HISTORY: Dyspnea. TECHNIQUE: An X-ray image of the chest is obtained in AP projection. COMPARISON: 11/18/2024. FINDINGS: Pulmonary Parenchyma: Emphysematous lungs. No evidence of consolidation, collapse, or focal opacities. No pulmonary nodules are identified. No evidence of pleural effusion or pleural thickening. Heart and Mediastinum: Heart size appears enlarged with splaying of the kym. No mediastinal widening or masses. No hilar or mediastinal lymphadenopathy. Aortic arch wall calcification noted, suggesting atherosclerotic changes. Bony Thorax: Bony thorax appears intact without fractures or deformities. Soft Tissues: Soft tissues overlying the chest wall are unremarkable. IMPRESSION: 1. Cardiomegaly. 2. Emphysematous lungs. 3. No consolidation, pneumothorax, or pleural effusion. 4. No interval changes. Electronically signed by Eder Smith 12-01-2024 02:05 AM ECG Additional Comments: ECG. A-fib rate of 71. Incomplete left bundle branch block. Nonspecific ST anterior abnormality. QTc 439. Code Status & VTE Plan VTE Prophylaxis Plan VTE Prophylaxis will be ordered: Yes
--- NOTE | 2024-12-01 04:33 | CT Scan Report ---
EXAM: CT abd pelvis wo con CLINICAL HISTORY: carmen, anuria TECHNIQUE: Contiguous axial images were obtained from the level of the diaphragm to the pubic symphysis without intravenous or oral contrast. Coronal and sagittal reconstructions were likewise performed and indicated to increase the sensitivity for detecting clinically relevant pathology. CT scan was performed according to ALARA (as low as reasonable achievable). COMPARISON: None. FINDINGS: Cardiomegaly noted. The visualized lung bases show atelectatic bands .-more on left side. Evaluation of the abdominal and pelvic visceral organs is limited without intravenous contrast. The unenhanced liver, spleen, pancreas, and adrenal glands are grossly unremarkable. The gallbladder is removed. The kidneys are normal in size and attenuation without obvious calcification. There is no hydronephrosis. Mild bilateral perinephric fat stranding Few small well-defined hypodense lesions are noted involving bilateral renal cortex -simple cyst - ultrasound correlation suggested The ureters are normal in caliber. No adenopathy or fluid collections are seen. No evidence of focal or diffuse bowel wall thickening or evidence of bowel obstruction is seen. No evidence of inflamed appendix. The aorta is normal in caliber. The urinary bladder is partially distended with Ramey's catheter in situ. Pelvic viscera are grossly unremarkable. No aggressive appearing osseous lesions are identified. Degenerative changes involving lumbar spine in the form of multilevel marginal osteophytes, disc space reduction and facetal arthrosis. IMPRESSION: 1. Few small well-defined hypodense lesions are noted involving bilateral renal cortex -simple cyst - ultrasound correlation suggested 2. Mild bilateral perinephric fat stranding 3. Lumbar spondylosis. 4. Diffuse atherosclerotic calcification is noted involving aorta iliac arteries. Electronically signed by Weston Garcia 12-01-2024 04:33 AM
[2024-12-01] MEDS ORDERED: POLYETHYLENE (MIRALAX) 17 GM PACK PO PRN (05:29)
[2024-12-01] MEDS ORDERED: ACETAMINOPHEN 325 MG TAB PO PRN (05:29)
[2024-12-01] MEDS ORDERED: GLUCOSE 40% GEL 15 GM TUBE PO PRN (05:29)
[2024-12-01] MEDS ORDERED: DEXTROSE 50% 50 ML SYRINGE IV PRN (05:29)
[2024-12-01] MEDS ORDERED: PHARMACY GLYCEMIC MGMT CONSULT PRN (05:29)
[2024-12-01] MEDS ORDERED: GLUCOSE 10 TAB/TUBE PO PRN (05:29)
[2024-12-01] MEDS ORDERED: CARBOHYDRATES FOR HYPOGLYCEMIA PO PRN (05:29)
[2024-12-01] MEDS ORDERED: NITROGLYCERIN SL 0.4 MG/TAB TAB SL PRN (05:29)
[2024-12-01] MEDS ORDERED: GLUCAGON FOR INJ 1 MG VIAL SQ PRN (05:29)
[2024-12-01] MEDS: INSULIN ASPART PER UNIT CHARGE SC SCH ×2 (06:04→17:14)
[2024-12-01] MEDS: cefTRIAXone SODIUM 2,000 MG/50 ML BAG IV SCH (06:05)
[2024-12-01] MEDS: SODIUM CHLORIDE 0.9% 1,000 ML IV SCH (06:06)
[2024-12-01 06:50] LABS: Hematocrit (blood only) 32.6 % (37.0-47.0); Hemoglobin 10.8 g/dl (12.0-16.0); Immature Granulocytes # (auto) 0.06 K/uL (0.01-0.20); Immature Granulocytes % (auto) 0.7 %; Mean Corpuscular Hemoglobin 29.3 pg (25.0-34.0); Mean Corpuscular Volume 88.3 fL (80.0-100.0); Platelet Count 181 K/uL (130-400); RDW Standard Deviation 54.4 fL (36.4-46.3); Red Blood Count 3.69 M/uL (4.20-5.40); White Blood Count 8.46 K/ul (4.8-10.8)
--- NOTE | 2024-12-01 06:51 | Ultrasound Report ---
EXAM: US venous doppler LE BI CLINICAL HISTORY: Bilateral lower extremity edema. DVT. TECHNIQUE: Ultrasound examination of bilateral lower extremity veins was performed in real time and duplex. One or more of the following were performed: spectral analysis, resistive index, waveform analysis, and pulsed Doppler. COMPARISON: None. FINDINGS: Normal phasic, non-pulsatile and spontaneous flow is noted in bilateral common femoral, superficial femoral, popliteal and posterior tibial and peroneal veins. Visualized veins of both lower extremities demonstrate normal compressibility. No sonographic evidence of acute deep vein thrombosis (DVT) is detected in the visualized veins of both lower extremities. Limited evaluation of calf vessels due to edema/pt body habitus. Compression and Augmentation: All evaluated veins compress fully with applied transducer pressure. Additional Findings: No evidence of intraluminal thrombus. There is bilateral lower limb edema. IMPRESSION: No sonographic evidence of acute DVT was detected in bilateral common femoral, superficial femoral, popliteal and posterior tibial and peroneal veins, at the time of examination. Limited evaluation of calf vessels due to edema/patient's body habitus. There is bilateral moderate calf edema. Disclaimer: DVT could be missed early in the disease when clot burden is minimal. For patients with moderate and high pretest probability of DVT and negative ultrasound, the [employer] clinical guidelines recommend testing with a D-dimer assay or repeat ultrasound in 5-7 days. If symptoms worsen, the Society of radiologists in ultrasound recommends repeating ultrasound even earlier. Electronically signed by Eder Smith 12-01-2024 06:50 AM
[2024-12-01] MEDS: ALBUTEROL 0.083% NEBU SOLN 3 ML VIAL NEB SCH (07:01)
[2024-12-01 07:12] LABS: Anion Gap 12.0 (3-11); Blood Urea Nitrogen 105.0 mg/dl (6-23); Calcium 9.1 mg/dl (8.6-10.3); Carbon Dioxide 25.0 mmol/L (21-32); Chloride 88.0 mmol/L (98-107); Creatinine Clr Calc Pharmacy 11.8 ml/min; Glucose 188.0 mg/dl (70-99(Fasting)); Magnesium 2.4 mg/dl (1.7-2.4); Potassium 3.8 mmol/L (3.5-5.1); Sodium 125.0 mmol/L (136-145)
[2024-12-01 07:25] LABS: INR 2.3 (0.9-1.1); Prothrombin Time 22.9 Seconds (9.0-12.0)
--- NOTE | 2024-12-01 07:33 | Pharmacy Report ---
Pharmacy Glycemic Short Note 2 - Date of Service December 01, 2024 - Glycemic Short BSG Results (Last 24 hours): 11/30/24 12/01/24 12/01/24 23:02 04:02 06:21 Glucose 208 H 188 H POC Glucose 218 H 12/01/24 07:23 Glucose POC Glucose 218 H OUTPATIENT ANTIDIABETIC REGIMEN: * Lantus 5-8 units daily, ozempic 0.25 mg SQ weekly (Thu) ASSESSMENT: * Patient admitted due to oliguria/anuria. PMHx significant for DM2, CKD IV. Recently admitted last month for hypoxemia and acute bronchitis. Elevated Scr on admission of 4.16 mg/dL. Baseline Scr per notes 1.9-2.0. Pharmacy consulted for glycemic management. NPO this morning. Reasonable to hold basal insulin for now and utilize novolog. PLAN FOR INPATIENT GLYCEMIC CONTROL: * Hold outpatient oral diabetes medications * Basal insulin * Lantus - hold * Bolus insulin * NovoLog per scale ACHS or Q6hrs while NPO * Goal Range: Low 120 mg/dL - High 150 mg/dL * Correction Factor: 40 mg/dL/unit * Nutritional / Prandial insulin per carb ratio of 1 unit per 25 grams CHO consumed
[2024-12-01 07:45] LABS: Total Protein Urine Random 45.3 mg/dl (0-11.9)
[2024-12-01 07:51] LABS: Protein Creatinine Ratio Urine 0.9 (0-0.2)
[2024-12-01 07:54] LABS: Hemoglobin A1C 9.1 % (4.5-5.6)
[2024-12-01] MEDS: METOPROLOL SUCC 50MG EXT REL TAB PO SCH (08:58)
[2024-12-01] MEDS: FAMOTIDINE 20 MG TAB PO SCH (08:58)
[2024-12-01] MEDS ORDERED: LORATADINE 10 MG TAB PO SCH (09:00)
[2024-12-01] MEDS ORDERED: SACCHAROMYCES BOULARDII 250 MG CAP PO SCH (09:00)
--- NOTE | 2024-12-01 09:35 | Ultrasound Report ---
RENAL ULTRASOUND HISTORY: renal cyst on ct scan COMPARISON: CT scan earlier today. FINDINGS: Right kidney measures 11 x 5 cm. Left kidney measures 11 x 5 cm. There is no hydronephrosis bilaterally. There are a few cysts in both kidneys, largest on the left measures 4 cm and largest on the right measures 3 cm. There is a small calcification right mid kidney. IMPRESSION: 1. No hydronephrosis. 2. Bilateral renal cysts. ACT 112: Negative or not required by law. Electronically signed by: Alexandru Rod M.D. 12/01/2024 9:34 AM
--- NOTE | 2024-12-01 10:23 | Nephrology Consultation ---
Date of Consultation December 01, 2024 Assessment & Plan (1) Acute renal failure superimposed on stage 4 chronic kidney disease: Already Had CKD 4 and now has TREMAYNE Stage 2--creat 4.2 from baseline around 2. TREMAYNE is most likely ATN that likely happened from Hypoxia periods at home--at home was not using o2 Consistently--o2 did drop below 90 a lot of times. Given her age, pre existing CKD 4 and comorbid Disease she is very susceptible to ATN. She did not have low BP to get into ATN but hypoxia alone can do in Susceptible patient. Creat this AM dropped a bit ( although with ivf) and urine output did grape picker a bit so Some hopeful signs. 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 her advanced age, non ambulatory, Obesity makes dialysis as impossible outpt. So not a candidate for outpt dialysis. Also with her preexisting CKD 4 She may never recover even if it is ATN. (2) Hyponatremia: In the setting of TREMAYNE most likely ATN--which causes tubular Dysfunction and Makes Hyponatremia lot more likely narayan in susceptible patients with Poor food intake. she was drinking a lot of Water to have more urine. At this point she appears volume Overloaded . D/c IvF after 500 ml more. FFR 1500 ml per day. Cannot use Salt tab nor urea. depending on her labs tomorrow likely will need to give IV lasix (3) Oliguria and anuria: We have already established that she does not have urinary obstruction. Now the likely cause is either severe ATN or ongoing volume Depletion. Would recommend robles for Accurate I and O given issues with Incontinence. On exam and by history She likely has Oliguric ATN. Plan Total time spent 82 mins including responding to tiger text by Admitting doctor at 530 AM. reviewing labs. Independently reviewed Renal US and CT abdomen History of Present Illness Reason for Consultation: TREMAYNE on CKD 4 and Hyponatremia Attending Physician: Kilo Fernandes MD History of Present Illness 89/F whom I follow in CKD clinic--last visit --baseline creat around 2 with Moderate Proteinuria --from Combination of HTN/DM/Obesity. No prior h/o Hyponatremia. Also has gout arthropathy, dyslipidemia, history of diabetic foot ulcer, COPD, on home oxygen 2 L, atrial fibrillation, hypertension, macular degeneration of left eye, morbid obesity, pressure ulcer left heel, who lives at home with her son and since May nonambulatory She was admitted on 11/18 and Discharged 11/21 following admission for Bronchitis related with human metapneumovirus. Patient still has some cough. No fevers. No chest pain or shortness of breath. No headache. Has some runny nose. No sore throat. Appetite is down. But today she drank about 90 ounces of water as she was not micturating---?? Confusion as she has incontinence and uses Diaper. Came in last night for " Not urinating". She actually drank a lot yesterday trying to urinate--90 Oz of water. On admission Found to be in TREMAYNE with creat of 4.16 from recent Discharge creat of 2.2. That day na was 137 and last night was lower at 124. She has been on lasix 80 daily now for many months with stable creat and na+--During recent admission lasix dose was unchanged. still on lasix 80 daily. She is getting --NS at 100 ml/hr. na [address] abdomen and renal US already done and negative for urine retention and Hydronephrosis. since admission BP is fine--not low at all. On at home and currently. Daughter at bedside--she feels she is lot more edematous now--narayan hands. also at home was not using o2 Consistently--o2 did drop below 90 a lot of times ROS--see HPI. 12 Systems otherwise negative. Physical Exam Physical Exam: General- Not in distress Head- atraumatic. MM moist. Neck- supple, no JVD. Lungs- clear to auscultation no wheezing or crackles Heart- regular rate and rhythm; no murmur, no gallop. Abdomen- Soft, nontender, no distension Extremities- b/l lower extremity gross edema present + Upper extremity Neuro- alert, oriented x 3; PERRL, no facial palsy; no dysarthria; obeys simple commands Skin- stage 3 sacral ulcer, callus seen on left heel Allergies Allergy/AdvReac Type Severity Reaction Status Date / Time No Known Allergies Allergy Verified 11/18/24 10:00 Home Medications Medication Instructions Recorded Confirmed Type allopurinol 300 mg tablet 300 mg PO QAM 08/15/22 12/01/24 History apple cider vinegar 500 mg tablet 500 mg PO PM 08/15/22 12/01/24 History aspirin 81 mg tablet,delayed 81 mg PO QPM 08/15/22 12/01/24 History release cholecalciferol (vitamin D3) 125 10,000 unit PO QPM 08/15/22 12/01/24 History mcg (5,000 unit) tablet (Vitamin D3) cyanocobalamin (vitamin B-12) 1,000 mcg PO QPM 08/15/22 12/01/24 History 1,000 mcg tablet (Vitamin B-12) diltiazem HCl 120 mg 120 mg PO QAM 08/15/22 12/01/24 History capsule,extended release 24 hr pravastatin 40 mg tablet 40 mg PO QPM 08/15/22 12/01/24 History vit C 250 mg-vit E 90 mg-zinc 40 1 tab PO AMPM 11/16/22 12/01/24 History mg-copper 1 or-bsazpl-uczdxl capsule (PreserVision AREDS-2) loratadine 10 mg tablet (Claritin) 10 mg PO QAM 05/21/24 12/01/24 History metoprolol succinate 50 mg 50 mg PO QAM 05/21/24 12/01/24 History tablet,extended release 24 hr nystatin 100,000 unit/gram topical 1 applic topical TID PRN FUNGAL 05/21/24 12/01/24 History powder RASH famotidine 20 mg tablet (Pepcid) 20 mg PO AMPM 08/05/24 12/01/24 History warfarin 2 mg tablet 2 mg PO MOWEFR 11/18/24 12/01/24 History warfarin 2 mg tablet 3 mg PO SUTUTHSA 11/18/24 12/01/24 History pen needle, diabetic 32 gauge x #50 ea 11/21/24 12/01/24 Rx 5/32" (Pen Needle) semaglutide 0.25 mg or 0.5 mg (2 0.25 mg subcut WK 11/30/24 12/01/24 History mg/3 mL) subcutaneous pen injector (Ozempic) Saccharomyces boulardii 250 mg 250 mg PO QAM 12/01/24 12/01/24 History capsule (Florastor) albuterol sulfate 2.5 mg/3 mL 2.5 mg continuous nebulization BID 12/01/24 12/01/24 History (0.083 %) solution for nebulization bisacodyl 5 mg tablet,delayed 10 mg PO HS PRN Constipation 12/01/24 12/01/24 History release (Dulcolax (bisacodyl)) digoxin 125 mcg (0.125 mg) tablet 125 mcg PO 3XWK 12/01/24 12/01/24 History furosemide 40 mg tablet 80 mg PO QAM 12/01/24 12/01/24 History insulin glargine 100 unit/mL (3 5 - 8 unit subcut QAM 12/01/24 12/01/24 History mL) subcutaneous pen (Lantus Solostar U-100 Insulin) Patient History Medical History CKD (chronic kidney disease) stage 4, GFR 15-29 ml/min History of breast cancer On warfarin therapy Surgical History History of total right knee replacement History of total left knee replacement History of total abdominal hysterectomy History of cholecystectomy S/P mastectomy, bilateral Family History Other Family history non-contributory Social History Smoking Status: Unknown if ever smoked Second Hand Exposure: No; Do You Dip or Chew Tobacco: No; Hx Alcohol Use: No Hx Substance Use: No Preferred Language: Khmer Communication Ability: Effective Junior Systems Administrator Required: No Beliefs That Will Affect Care: None marital status: Current Living Situation: Family current occupational status: retired Feels Safe at Home: Yes Assistive Devices: Bedside Commode, Lift Chair, Mechanical Lift, Oxygen - Continuous, Walker and Wheelchair Results & Data Vital Signs (Past 12 Hours) Vital Signs Temp Pulse Pulse Pulse Resp BP BP 12/01/24 09:47 12/01/24 09:00 84 139/85 12/01/24 07:33 63 12/01/24 07:01 67 18 12/01/24 05:02 12/01/24 04:36 36.4 C L 73 18 145/87 H 12/01/24 03:13 12/01/24 03:00 71 20 146/79 H 12/01/24 02:31 70 21 167/85 H 12/01/24 02:00 67 20 159/87 H 12/01/24 01:30 69 20 149/92 H 12/01/24 01:18 69 20 12/01/24 01:00 71 19 149/92 H 12/01/24 00:30 68 19 153/79 H 12/01/24 00:30 69 18 153/79 H 12/01/24 00:18 72 22 12/01/24 00:00 77 21 159/97 H 11/30/24 23:30 73 19 155/78 H 11/30/24 23:15 76 24 155/78 H 11/30/24 23:06 74 18 177/99 H 11/30/24 22:55 81 22 11/30/24 22:51 36.8 C 71 18 147/86 H 11/30/24 22:50 147/86 H Pulse Ox O2 Del Method O2 Flow Rate 12/01/24 09:47 Nasal Cannula 2 12/01/24 09:00 12/01/24 07:33 12/01/24 07:01 92 Nasal Cannula 2 12/01/24 05:02 Nasal Cannula 2 12/01/24 04:36 96 Nasal Cannula 2 12/01/24 03:13 Nasal Cannula 2 12/01/24 03:00 97 Nasal Cannula 2 12/01/24 02:31 97 Nasal Cannula 2 12/01/24 02:00 95 Nasal Cannula 2 12/01/24 01:30 99 Nasal Cannula 2 12/01/24 01:18 96 Nasal Cannula 2 12/01/24 01:00 98 Nasal Cannula 2 12/01/24 00:30 97 Nasal Cannula 2 12/01/24 00:30 97 Nasal Cannula 2 12/01/24 00:18 98 Nasal Cannula 2 12/01/24 00:00 97 Nasal Cannula 2 11/30/24 23:30 96 Nasal Cannula 2 11/30/24 23:15 96 Nasal Cannula 2 11/30/24 23:06 97 Nasal Cannula 2 11/30/24 22:55 97 Nasal Cannula 2 11/30/24 22:51 96 Nasal Cannula 2 11/30/24 22:50 Laboratory Results CBC, renal panel, Urine and CXR and CT abdomen and renal US reviewed.
--- NOTE | 2024-12-01 12:54 | Communication Note ---
Patient seen and examined at bedside. Family in room as well. patient alert and orriented x2-3. Compared to last admission, patient appears more volume overloaded, slightly confused. On exam, 2+ nonpititng edema in legs and arms bilaterally, rhonchi noted in lungs bilaterally. Confusion likely 2/2 uremia. Complex case. Patient with TREMAYNE on CKD IV heading into renal failure. Discussed case personally with nephrology, patient not a candidate for dialysis. Urine studies and case consistent with hypervolemic hyperosmolar hyponatremia. FLuid balance is delicate. Observe off of fluids, hold diuretic for now given evidence of renal recovery, close eye on urine output. Date of Service: December 01, 2024
--- NOTE | 2024-12-01 14:29 | Electrocardiogram Report ---
Test Reason : Blood Pressure : */* mmHG Vent. Rate : 71 BPM Atrial Rate : * BPM P-R Int : * ms QRS Dur : 110 ms QT Int : 404 ms P-R-T Axes : * -20 92 degrees QTcB Int : 439 ms Atrial fibrillation Incomplete left bundle block Minimal voltage criteria for LVH, may be normal variant Nonspecific ST and T wave abnormality Abnormal ECG When compared with ECG of 18-Nov-2024 11:27, Inverted T waves have replaced nonspecific T wave abnormality in Lateral leads Confirmed by Talon Ellington ([id number]) on 12/01/2024 2:28:54 PM Referred By: REFERRED SELF Confirmed By: Talon Ellington
[2024-12-01 15:47] LABS: Anion Gap 13.0 (3-11); Blood Urea Nitrogen 100.0 mg/dl (6-23); Calcium 9.3 mg/dl (8.6-10.3); Carbon Dioxide 25.0 mmol/L (21-32); Chloride 88.0 mmol/L (98-107); Creatinine Clr Calc Pharmacy 11.1 ml/min; Glucose 161.0 mg/dl (70-99(Fasting)); Potassium 4.2 mmol/L (3.5-5.1); Sodium 126.0 mmol/L (136-145)
[2024-12-01] MEDS ORDERED: Nursing to Pharmacy Communication SCH (16:45)
[2024-12-01] MEDS: ASPIRIN 81 MG ECTAB PO SCH (20:30)
[2024-12-01] MEDS: PRAVASTATIN SOD 40 MG TAB PO SCH (20:30)
[2024-12-02 07:15] LABS: Hematocrit (blood only) 33.0 % (37.0-47.0); Hemoglobin 10.7 g/dl (12.0-16.0); Mean Corpuscular Hemoglobin 28.7 pg (25.0-34.0); Mean Corpuscular Volume 88.5 fL (80.0-100.0); Platelet Count 205 K/uL (130-400); RDW Standard Deviation 55.1 fL (36.4-46.3); Red Blood Count 3.73 M/uL (4.20-5.40); White Blood Count 8.57 K/ul (4.8-10.8)
[2024-12-02 07:39] LABS: Anion Gap 13.0 (3-11); Blood Urea Nitrogen 103.0 mg/dl (6-23); Calcium 9.0 mg/dl (8.6-10.3); Carbon Dioxide 25.0 mmol/L (21-32); Chloride 88.0 mmol/L (98-107); Creatinine Clr Calc Pharmacy 11.1 ml/min; Magnesium 2.5 mg/dl (1.7-2.4); Potassium 4.0 mmol/L (3.5-5.1); Sodium 126.0 mmol/L (136-145); Uric Acid 7.4 mg/dl (2.6-7.2)
[2024-12-02 07:51] LABS: INR 2.2 (0.9-1.1); Prothrombin Time 22.1 Seconds (9.0-12.0)
[2024-12-02] MEDS: LANTUS PER UNIT CHARGE SC SCH (08:28)
--- NOTE | 2024-12-02 08:30 | XRay Report ---
HISTORY: Follow-up TECHNIQUE: Portable AP radiograph of the chest. COMPARISON: Chest radiograph dated 11/30/2024. FINDINGS: Left lung base/retrocardiac opacity has increased. This could be artifact due to underpenetration versus atelectasis or pneumonia. Clear right lung. Mild vascular congestion. No pneumothorax or effusion. Cardiomegaly. Left-sided aortic arch contains atherosclerotic calcification. Anteroinferior positioning of the right humeral head relative to the glenoid is unchanged and may represent chronic dislocation. Degenerative changes of the spine. IMPRESSION: * Increased left lower lung/retrocardiac opacity may represent artifact from underpenetration versus atelectasis or pneumonia. * Clear right lung. * Cardiomegaly with mild vascular congestion. 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 Electronically signed by Shahzad Mcdermott 12-02-2024 08:30 AM
--- NOTE | 2024-12-02 10:12 | Communication Note ---
Discussed code status with patient, alert and orriented x3 during conversation, not confused. Risks and benefits of resuscitation discussed at length. Patient states she does not want to suffer at end of life, and would not want artificial life support such as intubation, chest compressions. Patient DNRDNI at this time, all other interventions to be considered. Date of Service: December 02, 2024
--- NOTE | 2024-12-02 10:57 | Nephrology Progress Note ---
Date of Service December 02, 2024 Assessment & Plan (1) Acute renal failure superimposed on stage 4 chronic kidney disease: Plan: Already Had CKD 4 and now has TREMAYNE Stage 2--creat 4.2 from baseline around 2. TREMAYNE is most likely ATN that likely happened from Hypoxia periods at home--at home was not using o2 Consistently--o2 did drop below 90 a lot of times. Given her age, pre existing CKD 4 and comorbid Disease she is very susceptible to ATN. She did not have low BP to get into ATN but hypoxia alone can do in Susceptible patient. Creat this AM dropped a bit ( although with ivf) and urine output did flower picker a bit so Some hopeful signs. 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 her advanced age, non ambulatory, Obesity makes dialysis as impossible outpt. So not a candidate for outpt dialysis. Also with her preexisting CKD 4 She may never recover even if it is ATN. In distress today - Ok to give 40 mg iv lasix -- her wt is generally @ 112 pounds, this has been 116-117 this admission.. Keep her on regular Lasix 40 mg IV daily -Recommend increasing diuretic if needed as I would see her comfortable than a good Cr number (2) Hyponatremia: Plan: In the setting of TREMAYNE most likely ATN--which causes tubular Dysfunction and Makes Hyponatremia lot more likely narayan in susceptible patients with Poor food intake. she was drinking a lot of Water to have more urine. At this point she appears volume Overloaded . FFR 1500 ml per day., lasix as above Cannot use Salt tab nor urea. (3) Oliguria and anuria: Plan: UOP has improved, I expect improvment but this may take long or not recover at all. Plan Total time spent 82 mins including responding to tiger text by Admitting doctor at 530 AM. reviewing labs. Independently reviewed Renal US and CT abdomen Admission and Anticipated Discharge Date Admission Date: December 01, 2024 Subjective Alert and oriented Comfortable UOP -800 MLS Review of Systems 2 Review of Systems: Comfortable 2 + pedal edema Physical Exam 2 Physical Exam: General- Not in distress Head- atraumatic. MM moist. Neck- supple, no JVD. Lungs- bibasal crackles Heart- regular rate and rhythm; no murmur, no gallop. Abdomen- Soft, nontender, no distension Extremities- b/l lower extremity gross edema present + Upper extremity Neuro- alert, oriented x 3; Results & Data Vital Signs (Past 12 Hours) Vital Signs Temp Pulse Pulse Resp BP Pulse Ox O2 Del Method 12/02/24 10:03 Room Air 12/02/24 08:05 36.6 C 89 17 141/84 H 94 Nasal Cannula 12/02/24 07:26 79 18 86 L Nasal Cannula 12/02/24 02:28 36.6 C 75 18 128/72 93 Nasal Cannula 12/01/24 23:30 72 O2 Flow Rate 12/02/24 10:03 12/02/24 08:05 5 12/02/24 07:26 2 12/02/24 02:28 12/01/24 23:30 Laboratory Results 12/02/24 06:31 12/02/24 06:31
--- NOTE | 2024-12-02 11:03 | CT Scan Report ---
HISTORY: Worsening hypoxia. TECHNIQUE: CT imaging of the chest was performed without contrast. Images are presented in axial, sagittal, and coronal reformats. COMPARISON: Chest radiograph dated 12/02/2024. FINDINGS: Lungs: Bibasilar airspace opacities, left greater than right concerning for pneumonia. 0.5 cm nodule in the right middle lobe on series 3 image 41. 0.5 cm right middle lobe nodule on series 3 image 34.. Trace effusions.Central tracheobronchial tree is patent. Severe narrowing of the cervical airway on series 3 image 6 is poorly evaluated. Heart/Mediastinum: Cardiomegaly. Coronary artery calcifications are present. Aortic valvular and mitral annular calcification. No suspicious mediastinal or hilar lymph nodes. Thoracic esophagus is unremarkable. Vasculature: No thoracic aortic aneurysm. Mild atherosclerotic vascular disease of the aorta and arch vessels. Main pulmonary artery is normal in caliber. Soft Tissues: No suspicious axillary or subpectoral lymph nodes. Upper Abdomen: Gallbladder surgically absent. Included upper abdomen is otherwise unremarkable. 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 Large complex joint effusion. Severe arthrosis of the left shoulder.Diffuse idiopathic skeletal hyperostosis of the thoracic spine. Moderate to severe degenerative disc disease in the spine. IMPRESSION: * Bibasilar airspace opacities, left greater than right, suspicious for pneumonia. * Right middle lobe pulmonary nodules measuring up to 0.5 cm. No routine follow-up is necessary based on Fleischner Society criteria. If the patient is considered high risk for lung malignancy (i.e. history of smoking or malignancy), then follow-up chest CT can be performed in 12 months. * Severe narrowing of the cervical airway on series 3 image 6. This is poorly evaluated and could be due to stenosis or physiologic due to vocal cord position. This could be further evaluated with contrast-enhanced CT of the neck if clinically warranted. * Cardiomegaly with coronary artery calcifications. Aortic valvular and mitral annular calcification. * Severe arthrosis of the shoulders. 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 Large complex right glenohumeral joint effusion. * Additional chronic and/or incidental findings as above. ACT 112: Positive. There are findings on this exam that require communication between the performing entity and the patient following Patient Test Result Information Act ([place] ACT 112) guidelines. Electronically signed by Shahzad Mcdermott 12-02-2024 11:03 AM
[2024-12-02] MEDS: FUROSEMIDE INJ 20 MG/2 ML VIAL IV ONE ×2 (11:16→13:12)
--- NOTE | 2024-12-02 11:33 | Hospitalist Progress Note ---
Date of Service December 02, 2024 Assessment & Plan (1) Oliguria and anuria: Plan: 89-year-old female with past medical history significant for type 2 diabetes, CKD stage IV, gout arthropathy, dyslipidemia, history of diabetic foot ulcer, COPD, on home oxygen 2 L, atrial fibrillation, hypertension, macular degeneration of left eye, morbid obesity, pressure ulcer left heel, who lives at home with her son and since May nonambulatory was brought in by daughter because of patient not micturating for about a day. Recently patient was admitted on 11/18/2024 and was discharged on 11/21/2024. She was admitted for hypoxemia and acute bronchitis due to human metapneumovirus. Patient still has some cough. No fevers. No chest pain or shortness of breath. No headache. Has some runny nose. No sore throat. Appetite is down. But today she drank about 90 ounces of water as she was not micturating. No abdominal pain. Normal bowel movements. Lower extremity is more swollen than usual. She has pressure ulcers in the sacral region and also left heel and she has home health nurse who checks on her. Currently saturating okay and hemodynamics are okay. Patient seems comfortable. Could tell her name. Knows that she in the hospital. Knows her date of . Thinks this is still October. But could tell current year. Patient says when she coughs she is micturating little bit. Placed Ramey catheter in the ER. Ramey drained about 50 mL of urine. As per staff her diaper was wet. #Acute Renal Failure on CKD Stage IV -Baseline creatinine 1.9-2 -Presented with creatinine of 4.16 and BUN of 100 -creatinine stable, not improving, patient volume overloaded on exam -urine output improved since yesterday Plan: -given 40 IV lasix x1 -nephrology consulted, appreciate recs -family updated, code status discussed with patient see note in chart, patient DNRDNI at this time #HAP -patient has risk factors for MRSA and zosyn -non toxic at this time, CT chest revealing concern for pneumonia Plan: -start zosyn -check sputum culture, MRSA swab, start vancomycin if positive -start incentive spirometer #Tracheal Narrowing -read on CT chest, unclear etiology -on room air, in acute renal failure making contrast relative contraindication at this time Plan: -f/u once renal failure improves #Hypervolemic Hyperosmolar Hyponatremia -Sodium 126 -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 Type 2 diabetes -SSI -pharmacy consulted Pressure ulcers Stage III sacral ulcers and also left heel callus -Wound care History of gout -Hold allopurinol for now Atrial fibrillation -Continue metoprolol and diltiazem -Holding digoxin for TREMAYNE -On Coumadin -Follow PT/INR Hypertension -On diltiazem and metoprolol succinate Hyperlipidemia -On statin COPD Chronic Hypoxic Respiratory Failure -On home oxygen 2 L -Continue home nebs Chronic diastolic CHF Morbid obesity -Counseling Ambulate dysfunction -Currently nonambulatory Plan I spent a total of 50 minutes in direct patient care, including [id number] time with the patient and/or family, reviewing medical records, ordering and reviewing diagnostic tests, and coordinating care with other healthcare providers. This time includes: history taking, physical examination, medical decision making, counseling, ECG interpretation, imaging interpretation, lab interpretation, orders, and education, excluding time spent in the performance of separately billed services. Admission and Anticipated Discharge Date Admission Date: December 01, 2024 Subjective Patient seen and examined at bedside. Patient alert and orriented x3 this morning on my exam. Feels about the same as yesterday but less confused. COmfortable at this time. Feels she is "puffier" than normal. Review of Systems Review of Systems: CONSTITUTIONAL: Patient denies fevers, chills, sweats and weight changes. EYES: Patient denies any visual symptoms. EARS, NOSE, AND THROAT: No difficulties with hearing. No symptoms of rhinitis or sore throat. CARDIOVASCULAR: Patient denies chest pains, palpitations, orthopnea and paroxysmal nocturnal dyspnea. RESPIRATORY: No dyspnea on exertion, no wheezing or cough. GI: No nausea, vomiting, diarrhea, constipation, abdominal pain, hematochezia or melena. : No urinary hesitancy or dribbling. No nocturia or urinary frequency. No abnormal urethral discharge. MUSCULOSKELETAL: volume overload NEUROLOGIC: No chronic headaches, no seizures. Patient denies numbness, tingling or weakness. PSYCHIATRIC: Patient denies problems with mood disturbance. No problems with anxiety. ENDOCRINE: No excessive urination or excessive thirst. DERMATOLOGIC: Patient denies any rashes or skin changes. Physical Exam Physical Exam: Gen: A&O 3 NAD HEENT: NCAT, EOMI, not icteric. External ears normal. No rhinorrhea. Moist mucous membranes. Neck: Supple, full range of motion, no observable masses, No meningeal sign. Lungs: bilateral rhonchi throughout lung bill CV: RRR, no edema. Abdomen: Soft, nondistended, No rebound tenderness. MSK: No joint swelling, no redness. diffuse non pitting edema throughout arms and legs Skin: No rashes, petechiae, lesions. Normal color per patient. Neuro: Normal Gait, Grossly intact. Psych: Appropriate for situation. Results & Data Results & Data Vital Signs (Past 12 Hours) Vital Signs Temp Pulse Pulse Resp BP Pulse Ox O2 Del Method 12/02/24 10:03 Room Air 12/02/24 08:05 36.6 C 89 17 141/84 H 94 Nasal Cannula 12/02/24 07:26 79 18 86 L Nasal Cannula 12/02/24 02:28 36.6 C 75 18 128/72 93 Nasal Cannula 12/01/24 23:30 72 O2 Flow Rate 12/02/24 10:03 12/02/24 08:05 5 12/02/24 07:26 2 12/02/24 02:28 12/01/24 23:30 Laboratory Results -personally reviewed, Hgb stable, no leukocytosis, Na same as yesterday at 126, electrolytes suggestive of acute renal failure Medications Administered Albuterol (Albuterol 0.083% Nebu Soln 3 Ml Vial) 2.5 mg NEB BIDR [facility]; Protocol Stop: 12/31/24 06:59 Last Admin: 12/02/24 07:26 Dose: 2.5 mg Documented By: Admin: 12/01/24 19:26 Dose: 2.5 mg Documented By: Admin: 12/01/24 07:01 Dose: 2.5 mg Documented By: JVEGA Aspirin (Aspirin 81 Mg Ectab) 81 mg PO QPM [facility] Stop: 12/31/24 20:59 Last Admin: 12/01/24 20:30 Dose: 81 mg Documented By: DINH Diltiazem HCl (Diltiazem Hcl 120 Mg Capcr) 120 mg PO QAM [facility] Stop: 12/31/24 08:59 Last Admin: 12/02/24 08:27 Dose: 120 mg Documented By: Admin: 12/01/24 08:58 Dose: 120 mg Documented By: TRAY Famotidine (Famotidine 20 Mg Tab) 20 mg PO BID [facility] Stop: 12/31/24 08:59 Last Admin: 12/02/24 08:27 Dose: 20 mg Documented By: Admin: 12/01/24 20:30 Dose: 20 mg Documented By: Admin: 12/01/24 08:58 Dose: 20 mg Documented By: TRAY Insulin Aspart (Insulin Aspart Per Unit Charge) 0 units SC ACHS [facility] Stop: 12/31/24 05:59 Last Admin: 12/02/24 08:28 Dose: 4 units Documented By: YANICK Co-signed By: CHINMAY Admin: 12/01/24 20:30 Dose: 2 units Documented By: ALYCIA Co-signed By: GODWIN Admin: 12/01/24 17:14 Dose: 3 units Documented By: TRAY Co-signed By: JYOTI Insulin Glargine (Lantus Per Unit Charge) 5 units SC [facility] Stop: 01/01/25 08:59 Last Admin: 12/02/24 08:28 Dose: 5 units Documented By: YANICK Co-signed By: CHINMAY Metoprolol Succinate (Metoprolol Succ 50mg Ext Rel Tab) [facility] [place] [facility] [place]: 12/31/24 08:59 Last Admin: 12/02/24 08:27 Dose: 50 mg Documented By: Admin: 12/01/24 08:58 Dose: 50 mg Documented By: TRAY Pravastatin Sodium (Pravastatin Sod 40 Mg Tab) 40 mg PO QPM [facility] Stop: 12/31/24 20:59 Last Admin: 12/01/24 20:30 Dose: 40 mg Documented By: ALYCIA
[2024-12-02] MEDS: 4.5GM X1 IV STA (11:55)
[2024-12-02] MEDS: PIPERACILLIN/TAZOBACTAM 4.5 GM/100 ML BAG IV SCH ×2 (12:14→19:54)
[2024-12-02] MEDS: DOXYCYCLINE HYCLATE 100 MG CAP PO SCH (13:12)
[2024-12-03 07:56] LABS: Hematocrit (blood only) 33.3 % (37.0-47.0); Hemoglobin 11.2 g/dl (12.0-16.0); Mean Corpuscular Hemoglobin 29.3 pg (25.0-34.0); Mean Corpuscular Volume 87.2 fL (80.0-100.0); Platelet Count 198 K/uL (130-400); RDW Standard Deviation 53.5 fL (36.4-46.3); Red Blood Count 3.82 M/uL (4.20-5.40); White Blood Count 8.64 K/ul (4.8-10.8)
[2024-12-03] MEDS: LANTUS PER UNIT CHARGE SC SCH (08:03)
[2024-12-03 08:22] LABS: INR 1.9 (0.9-1.1); Prothrombin Time 19.9 Seconds (9.0-12.0)
[2024-12-03 08:27] LABS: Anion Gap 13.0 (3-11); Blood Urea Nitrogen 107.0 mg/dl (6-23); Calcium 9.0 mg/dl (8.6-10.3); Carbon Dioxide 26.0 mmol/L (21-32); Chloride 87.0 mmol/L (98-107); Creatinine Clr Calc Pharmacy 9.9 ml/min; Magnesium 2.6 mg/dl (1.7-2.4); Potassium 3.8 mmol/L (3.5-5.1); Sodium 126.0 mmol/L (136-145)
--- NOTE | 2024-12-03 10:06 | Nephrology Progress Note ---
Date of Service December 03, 2024 Assessment & Plan (1) Acute renal failure superimposed on stage 4 chronic kidney disease: Plan: Already Had CKD 4 and now has TREMAYNE Stage 2--creat 4.2 from baseline around 2. TREMAYNE is most likely ATN that likely happened from Hypoxia periods at home--at home was not using o2 Consistently--o2 did drop below 90 a lot of times. Given her age, pre existing CKD 4 and comorbid Disease she is very susceptible to ATN. She did not have low BP to get into ATN but hypoxia alone can do in Susceptible patient. 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 her advanced age, non ambulatory, Obesity makes dialysis as impossible outpt. So not a candidate for outpt dialysis. Also with her preexisting CKD 4 She may never recover even if it is ATN. - Renal functions and UOP have declined further, She continues to be Volume overloaded , hyponatremic and her BP also is soft - Change lasix to 20 mg iV TID. - Her renal numbers may decline further, but we have to accept this. (2) Hyponatremia: Plan: In the setting of TREMAYNE most likely ATN--which causes tubular Dysfunction and Makes Hyponatremia lot more likely narayan in susceptible patients with Poor food intake. she was drinking a lot of Water to have more urine. At this point she appears volume Overloaded . FFR 1500 ml per day. lasix as above Cannot use Salt tab abd Urea (3) Oliguria and anuria: Plan: UOP has tailed off, I expect improvment but this may take long or not recover at all. Admission and Anticipated Discharge Date Admission Date: December 01, 2024 Subjective Patient alert and orriented x3 this morning on my exam. Feels about the same as yesterday. Review of Systems Review of Systems: Comfortable 2 + pedal edema Physical Exam Physical Exam: General- Not in distress Head- atraumatic. MM moist. Neck- supple, no JVD. Lungs- bibasal crackles Heart- regular rate and rhythm; no murmur, no gallop. Abdomen- Soft, nontender, no distension Extremities- b/l lower extremity gross edema present + Upper extremity Neuro- alert, oriented x 3; Results & Data Vital Signs (Past 12 Hours) Vital Signs Temp Pulse Resp BP Pulse Ox Pulse Ox O2 Del Method 12/03/24 08:09 36.3 C L 72 18 111/65 97 Nasal Cannula 12/03/24 07:04 72 18 91 Nasal Cannula 12/03/24 06:00 91 12/03/24 03:32 36.3 C L 71 16 120/71 93 Nasal Cannula 12/02/24 22:39 36.4 C L 77 16 126/74 95 Nasal Cannula O2 Del Method O2 Flow Rate O2 Flow Rate 12/03/24 08:09 4 12/03/24 07:04 3 12/03/24 06:00 Nasal Cannula 3 12/03/24 03:32 4 12/02/24 22:39 4
--- NOTE | 2024-12-03 11:52 | Hospitalist Progress Note ---
Date of Service December 03, 2024 Assessment & Plan (1) Oliguria and anuria: Plan: 89-year-old female with past medical history significant for type 2 diabetes, CKD stage IV, gout arthropathy, dyslipidemia, history of diabetic foot ulcer, COPD, on home oxygen 2 L, atrial fibrillation, hypertension, macular degeneration of left eye, morbid obesity, pressure ulcer left heel, who lives at home with her son and since May nonambulatory was brought in by daughter because of patient not micturating for about a day. Recently patient was admitted on 11/18/2024 and was discharged on 11/21/2024. She was admitted for hypoxemia and acute bronchitis due to human metapneumovirus. Patient still has some cough. No fevers. No chest pain or shortness of breath. No headache. Has some runny nose. No sore throat. Appetite is down. But today she drank about 90 ounces of water as she was not micturating. No abdominal pain. Normal bowel movements. Lower extremity is more swollen than usual. She has pressure ulcers in the sacral region and also left heel and she has home health nurse who checks on her. Currently saturating okay and hemodynamics are okay. Patient seems comfortable. Could tell her name. Knows that she in the hospital. Knows her date of . Thinks this is still October. But could tell current year. Patient says when she coughs she is micturating little bit. Placed Ramey catheter in the ER. Ramey drained about 50 mL of urine. As per staff her diaper was wet. #Acute Renal Failure on CKD Stage IV -Baseline creatinine 1.9-2 -Presented with creatinine of 4.16 and BUN of 100 -creatinine stable, not improving, patient volume overloaded on exam -urine output improved since yesterday Plan: -start 20 IV tid lasix -nephrology consulted, appreciate recs -family updated, code status discussed with patient see note in chart, patient DNRDNI at this time #HAP #COPD #Acute on Chronic Hypoxic Respiratory Failure -patient has risk factors for MRSA and zosyn -non toxic at this time, CT chest revealing concern for pneumonia Plan: -continue zosyn -continue incentive spirometer #Tracheal Narrowing -read on CT chest, unclear etiology -on room air, in acute renal failure making contrast relative contraindication at this time Plan: -f/u once renal failure improves #Hypervolemic Hyperosmolar Hyponatremia -Sodium 126 -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 Type 2 diabetes -SSI -pharmacy consulted Pressure ulcers Stage III sacral ulcers and also left heel callus -Wound care History of gout -Hold allopurinol for now Atrial fibrillation -Continue metoprolol and diltiazem -Holding digoxin for TREMAYNE -On Coumadin -Follow PT/INR Hypertension -On diltiazem and metoprolol succinate Hyperlipidemia -On statin Chronic diastolic CHF Morbid obesity -Counseling Ambulate dysfunction -Currently nonambulatory Plan I spent a total of 50 minutes in direct patient care, including [id number] time with the patient and/or family, reviewing medical records, ordering and reviewing diagnostic tests, and coordinating care with other healthcare providers. This time includes: history taking, physical examination, medical decision making, counseling, ECG interpretation, imaging interpretation, lab interpretation, orders, and education, excluding time spent in the performance of separately billed services. Admission and Anticipated Discharge Date Admission Date: December 01, 2024 Subjective Patient seen and examined at bedside. patient doing ok today. States she feels very fatigued but comfortable. Called Nessa next of kin to update on guarded short and medium term prognosis at this time given worsening renal failure. Discussed having a family meeting tomorrow to discuss goals and values at 10:30 am. She was appreciative of the update and will be at family meeting. Review of Systems Review of Systems: CONSTITUTIONAL: fatigue, fluid retention EYES: Patient denies any visual symptoms. EARS, NOSE, AND THROAT: No difficulties with hearing. No symptoms of rhinitis or sore throat. CARDIOVASCULAR: Patient denies chest pains, palpitations, orthopnea and paroxysmal nocturnal dyspnea. RESPIRATORY: No dyspnea on exertion, no wheezing or cough. GI: No nausea, vomiting, diarrhea, constipation, abdominal pain, hematochezia or melena. : No urinary hesitancy or dribbling. No nocturia or urinary frequency. No abnormal urethral discharge. MUSCULOSKELETAL: volume overload NEUROLOGIC: No chronic headaches, no seizures. Patient denies numbness, tingling or weakness. PSYCHIATRIC: Patient denies problems with mood disturbance. No problems with anxiety. ENDOCRINE: No excessive urination or excessive thirst. DERMATOLOGIC: Patient denies any rashes or skin changes. Physical Exam Physical Exam: Gen: A&O 3 NAD HEENT: NCAT, EOMI, not icteric. External ears normal. No rhinorrhea. Moist mucous membranes. Neck: Supple, full range of motion, no observable masses, No meningeal sign. Lungs: bilateral rhonchi throughout lung bill CV: RRR, no edema. Abdomen: Soft, nondistended, No rebound tenderness. MSK: No joint swelling, no redness. diffuse non pitting edema throughout arms and legs Skin: No rashes, petechiae, lesions. Normal color per patient. Neuro: Normal Gait, Grossly intact. Psych: Appropriate for situation. Results & Data Results & Data Vital Signs (Past 12 Hours) Vital Signs Temp Pulse Resp BP Pulse Ox Pulse Ox O2 Del Method 12/03/24 11:15 36.3 C L 67 17 118/72 94 Nasal Cannula 12/03/24 08:09 36.3 C L 72 18 111/65 97 Nasal Cannula 12/03/24 07:04 72 18 91 Nasal Cannula 12/03/24 06:00 91 12/03/24 03:32 36.3 C L 71 16 120/71 93 Nasal Cannula O2 Del Method O2 Flow Rate O2 Flow Rate 12/03/24 11:15 3 12/03/24 08:09 4 12/03/24 07:04 3 12/03/24 06:00 Nasal Cannula 3 12/03/24 03:32 4 Laboratory Results -personally reviewed, creatinine worsening to 4.80, Na stable at this time Medications Administered Albuterol (Albuterol 0.083% Nebu Soln 3 Ml Vial) 2.5 mg NEB BIDR [facility]; Protocol Stop: 12/31/24 06:59 Last Admin: 12/03/24 07:04 Dose: 2.5 mg Documented By: Admin: 12/02/24 20:09 Dose: 2.5 mg Documented By: Admin: 12/02/24 07:26 Dose: 2.5 mg Documented By: Admin: 12/01/24 19:26 Dose: 2.5 mg Documented By: Admin: 12/01/24 07:01 Dose: 2.5 mg Documented By: BISI Aspirin (Aspirin 81 Mg Ectab) 81 mg PO QPM [facility] Stop: 12/31/24 20:59 Last Admin: 12/02/24 19:54 Dose: 81 mg Documented By: Admin: 12/01/24 20:30 Dose: 81 mg Documented By: ALYCIA Diltiazem HCl (Diltiazem Hcl 120 Mg Capcr) 120 mg PO QAM [facility] Stop: 12/31/24 08:59 Last Admin: 12/03/24 07:51 Dose: 120 mg Documented By: Admin: 12/02/24 08:27 Dose: 120 mg Documented By: Admin: 12/01/24 08:58 Dose: 120 mg Documented By: TRAY Piperacillin Sod/Tazobactam Sod (Zosyn) 4.5 gm in 100 mls @ 25 mls/hr IV Q12H [facility]; Protocol Stop: 12/07/24 19:59 Last Admin: 12/03/24 07:51 Dose: 25 mls/hr Documented By: Infusion: 12/03/24 00:08 Dose: Infused Documented By: Admin: 12/02/24 19:54 Dose: 25 mls/hr Documented By: KINGS Insulin Aspart (Insulin Aspart Per Unit Charge) 0 units SC ACHS [facility] Stop: 12/31/24 05:59 Last Admin: 12/03/24 11:41 Dose: 4 units Documented By: YANICK Co-signed By: SHILOH Admin: 12/03/24 08:02 Dose: 5 units Documented By: YANICK Co-signed By: SHILOH Admin: 12/02/24 21:31 Dose: 3 units Documented By: KINGS Co-signed By: GEOR[place]IA Admin: 12/02/24 17:25 Dose: 3 units Documented By: YANICK Co-signed By: SHILOH(2) Admin: 12/02/24 11:43 Dose: 4 units Documented By: YANICK Co-signed By: CHINMAY Admin: 12/02/24 08:28 Dose: 4 units Documented By: YANICK Co-signed By: CHINMAY Admin: 12/01/24 20:30 Dose: 2 units Documented By: ALYCIA Co-signed By: GODWIN Admin: 12/01/24 17:14 Dose: 3 units Documented By: TRAY Co-signed By: JYOTI Insulin Glargine (Lantus Per Unit Charge) 7 units SC QAM [facility] Stop: 01/02/25 08:59 Last Admin: 12/03/24 08:03 Dose: 7 units Documented By: YANICK Co-signed By: AM Metoprolol Succinate (Metoprolol Succ 50mg Ext Rel Tab) 50 mg PO QAM [facility] Stop: 12/31/24 08:59 Last Admin: 12/03/24 07:51 Dose: 50 mg Documented By: Admin: 12/02/24 08:27 Dose: 50 mg Documented By: Admin: 12/01/24 08:58 Dose: 50 mg Documented By: TRAY Pravastatin Sodium (Pravastatin Sod 40 Mg Tab) 40 mg PO QPM [facility] Stop: 12/31/24 20:59 Last Admin: 12/02/24 21:31 Dose: 40 mg Documented By: Admin: 12/01/24 20:30 Dose: 40 mg Documented By: ALYCIA
--- NOTE | 2024-12-03 13:36 | Pharmacy Report ---
Pharmacy Glycemic Short Note 2 - Date of Service December 03, 2024 - Glycemic Short BSG Results (Last 24 hours): 12/02/24 12/02/24 12/03/24 16:20 20:39 07:10 POC Glucose 183 H 214 H Fasting Glucose 151 H 12/03/24 12/03/24 07:21 11:13 POC Glucose 182 H 162 H Fasting Glucose OUTPATIENT ANTIDIABETIC REGIMEN: * Lantus 5-8 units daily, ozempic 0.25 mg SQ weekly (Thu) ASSESSMENT: 12/03: * Basal insulin resumed on 12/02 AM due to fasting BSG of 201 mg/dL. Fasting improved today but remains above goal at 182 mg/dL. Will increase basal. Conservative changes based on patient age and TREMAYNE. * Post prandial BSGs are improving. Continue current Novolog orders for now. 12/01: * Patient admitted due to oliguria/anuria. PMHx significant for DM2, CKD IV. Recently admitted last month for hypoxemia and acute bronchitis. Elevated Scr on admission of 4.16 mg/dL. Baseline Scr per notes 1.9-2.0. Pharmacy consulted for glycemic management. NPO this morning. Reasonable to hold basal insulin for now and utilize novolog. PLAN FOR INPATIENT GLYCEMIC CONTROL: * Hold outpatient oral diabetes medications * Basal insulin * Lantus 7 units SC daily * Bolus insulin * NovoLog per scale ACHS or Q6hrs while NPO * Goal Range: Low 120 mg/dL - High 150 mg/dL * Correction Factor: 30 mg/dL/unit * Nutritional / Prandial insulin per carb ratio of 1 unit per 12 grams CHO consumed
[2024-12-03] MEDS: FUROSEMIDE INJ 20 MG/2 ML VIAL IV SCH (14:00)
--- NOTE | 2024-12-03 22:58 | XRay Report ---
Exam(s): XR CXR 1 VIEW EXAM: XR Chest, 1 View CLINICAL HISTORY: Reason for exam: aspiration? n/v. TECHNIQUE: Frontal view of the chest. COMPARISON: No relevant prior studies available. FINDINGS: Lungs: There is scarring and/or atelectasis in the left lung.. Pleural space: No pleural effusion is seen. No pneumothorax. Heart: The heart is top normal in size.. Mediastinum: There is uncoiling calcification of thoracic aorta.. Bones/joints: There are degenerative changes in the spine.. IMPRESSION: There is scarring and/or atelectasis in the left lung.. Electronically signed by: Murray Finley MD 12/03/24 22:57 PM
[2024-12-04 07:29] LABS: Hematocrit (blood only) 31.5 % (37.0-47.0); Hemoglobin 10.3 g/dl (12.0-16.0); Mean Corpuscular Hemoglobin 28.9 pg (25.0-34.0); Mean Corpuscular Volume 88.5 fL (80.0-100.0); Platelet Count 189 K/uL (130-400); RDW Standard Deviation 54.4 fL (36.4-46.3); Red Blood Count 3.56 M/uL (4.20-5.40); White Blood Count 6.31 K/ul (4.8-10.8)
[2024-12-04 07:52] LABS: Anion Gap 13.0 (3-11); Blood Urea Nitrogen 111.0 mg/dl (6-23); Calcium 8.6 mg/dl (8.6-10.3); Carbon Dioxide 24.0 mmol/L (21-32); Chloride 88.0 mmol/L (98-107); Creatinine Clr Calc Pharmacy 9.3 ml/min; Magnesium 2.6 mg/dl (1.7-2.4); Potassium 3.6 mmol/L (3.5-5.1); Sodium 125.0 mmol/L (136-145)
[2024-12-04 07:58] LABS: INR 1.6 (0.9-1.1); Prothrombin Time 17.0 Seconds (9.0-12.0)
--- NOTE | 2024-12-04 08:23 | XRay Report ---
KUB CLINICAL HISTORY: Nausea and vomiting. COMPARISON STUDY: CT of the abdomen pelvis December 01, 2024. FINDINGS: Cholecystectomy clips are noted. The bowel gas pattern is normal. Although sensitivity is d iminished on this supine exam, there is no evidence for free air. The amount of stool is within celio l limits. No urinary calculi are identified. Linear left lower lung opacities represent atelectasis o r scarring. IMPRESSION: No evidence for a bowel obstruction. ACT 112: Negative or not required by law. Electronically signed by: Paul Emerson M.D. 12/04/2024 8:20 AM
[2024-12-04] MEDS: INSULIN ASPART PER UNIT CHARGE SC SCH (08:57)
[2024-12-04] MEDS: LANTUS PER UNIT CHARGE SC SCH (09:06)
[2024-12-04 09:52] LABS: Uric Acid, Random Urine 5 mg/dL (see note)
--- NOTE | 2024-12-04 10:01 | Nephrology Progress Note ---
Date of Service December 04, 2024 Assessment & Plan (1) Acute renal failure superimposed on stage 4 chronic kidney disease: Plan: Already Had CKD 4 and now has TREMAYNE Stage 2--creat 4.2 from baseline around 2. TREMAYNE is most likely ATN that likely happened from Hypoxia periods at home--at home was not using o2 Consistently--o2 did drop below 90 a lot of times. Given her age, pre existing CKD 4 and comorbid Disease she is very susceptible to ATN. She did not have low BP to get into ATN but hypoxia alone can do in Susceptible patient. Creat this AM dropped a bit ( although with ivf) and urine output did machine operator picker a bit so Some hopeful signs. 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 her advanced age, non ambulatory, Obesity makes dialysis as impossible outpt. So not a candidate for outpt dialysis. Also with her preexisting CKD 4 She may never recover even if it is ATN. - Renal functions and UOP continue to decline this is ATN, She continues to be Volume overloaded , hyponatremic and her BP also is soft - Continue on lasix to 20 mg iV TID. - Her renal numbers may decline further, but we have to accept this. Family meeting in to decide ceiling of care, Continue with current management until then. (2) Hyponatremia: Plan: In the setting of TREMAYNE most likely ATN--which causes tubular Dysfunction and Makes Hyponatremia lot more likely narayan in susceptible patients with Poor food intake. she was drinking a lot of Water to have more urine. At this point she appears volume Overloaded . FFR 1500 ml per day. lasix as above Cannot use Salt tab abd Urea (3) Oliguria and anuria: Plan: UOP has tailed off, I expect improvment but this may take long or not recover at all. Admission and Anticipated Discharge Date Admission Date: December 01, 2024 Subjective Patient seen and examined at bedside, Jennifer. UOP contiinues to be poor and her renal functions contineu to decline. Review of Systems 2 Review of Systems: Comfortable 2 + pedal edema Physical Exam 2 Physical Exam: General- Not in distress Lungs- bibasal crackles Heart- regular rate and rhythm; no murmur, no gallop. Abdomen- Soft, nontender, no distension Extremities- b/l lower extremity gross edema present + Upper extremity Neuro- alert, oriented x 3; Results & Data Vital Signs (Past 12 Hours) Vital Signs Temp Pulse Pulse Resp BP Pulse Ox Pulse Ox 12/04/24 07:39 36.3 C L 74 20 119/70 93 12/04/24 06:59 66 18 91 12/04/24 06:00 95 12/04/24 03:34 36.3 C L 70 16 122/75 92 12/03/24 23:50 36.3 C L 71 16 124/76 96 12/03/24 22:00 72 O2 Del Method O2 Del Method O2 Flow Rate O2 Flow Rate 12/04/24 07:39 Nasal Cannula 4 12/04/24 06:59 Nasal Cannula 1 12/04/24 06:00 Nasal Cannula 4 12/04/24 03:34 Nasal Cannula 4 12/03/24 23:50 Nasal Cannula 3 12/03/24 22:00 Laboratory Results 12/04/24 07:09 12/04/24 07:09
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
[2024-12-04] MEDS ORDERED: HYDROmorphone INJ 0.5 MG/0.5 ML SYR IV PRN ×2 (11:44→13:21)
[2024-12-04] MEDS ORDERED: ONDANSETRON INJ 2 MG/ML 2 ML VIAL IV PRN (11:44)
[2024-12-04] MEDS ORDERED: ACETAMINOPHEN 500 MG TAB PO PRN (13:21)
[2024-12-05] MEDS: LANTUS PER UNIT CHARGE SQ SCH (08:25)
--- NOTE | 2024-12-05 11:36 | Hospitalist Progress Note ---
Date of Service December 05, 2024 Assessment & Plan (1) Oliguria and anuria: Plan: 89-year-old female with past medical history significant for type 2 diabetes, CKD stage IV, gout arthropathy, dyslipidemia, history of diabetic foot ulcer, COPD, on home oxygen 2 L, atrial fibrillation, hypertension, macular degeneration of left eye, morbid obesity, pressure ulcer left heel, who lives at home with her son and since May nonambulatory was brought in by daughter because of patient not micturating for about a day. Recently patient was admitted on 11/18/2024 and was discharged on 11/21/2024. She was admitted for hypoxemia and acute bronchitis due to human metapneumovirus. Patient still has some cough. No fevers. No chest pain or shortness of breath. No headache. Has some runny nose. No sore throat. Appetite is down. But today she drank about 90 ounces of water as she was not micturating. No abdominal pain. Normal bowel movements. Lower extremity is more swollen than usual. She has pressure ulcers in the sacral region and also left heel and she has home health nurse who checks on her. Currently saturating okay and hemodynamics are okay. Patient seems comfortable. Could tell her name. Knows that she in the hospital. Knows her date of . Thinks this is still October. But could tell current year. Patient says when she coughs she is micturating little bit. Placed Ramey catheter in the ER. Ramey drained about 50 mL of urine. As per staff her diaper was wet. #Acute Renal Failure on CKD Stage IV #Comfort Focused Care -Baseline creatinine 1.9-2 -Presented with creatinine of 4.16 and BUN of 100 -creatinine stable, not improving, patient volume overloaded on exam -urine output not improving despite diuresis -electrolytes elevating, getting uremia symptoms, minimal urine output Plan: -continue 20 IV tid lasix -continue IV lasix, stop blood draws -nephrology consulted, appreciate recs -family discussion as above, comfort focused care at this time -continue dilaudid 0.5 mg q4hr prn for pain -continue zofran for nausea/vomiting -continue ativan 0.5mg q6hr prn for agitation -monitor diarrhea, if needed can consider imodium, will check C. diff first -glycopyrulate for secretions if needed -working on setting up hospice at home #HAP #COPD #Acute on Chronic Hypoxic Respiratory Failure -patient has risk factors for MRSA and zosyn -non toxic at this time, CT chest revealing concern for pneumonia Plan: -continue zosyn, will do 5 day course -continue incentive spirometer #Tracheal Narrowing -read on CT chest, unclear etiology -on room air, in acute renal failure making contrast relative contraindication at this time #Hypervolemic Hyperosmolar Hyponatremia -Sodium 125 last check Type 2 diabetes -SSI -pharmacy consulted Pressure ulcers Stage III sacral ulcers and also left heel callus -Wound care History of gout -Hold allopurinol Atrial fibrillation -Continue metoprolol and diltiazem -continue warfarin, no INR checks Hypertension -On diltiazem and metoprolol succinate Hyperlipidemia -On statin Ambulate dysfunction -Currently nonambulatory I spent a total of 40 minutes in direct patient care, including [id number] time with the patient and/or family, reviewing medical records, ordering and reviewing diagnostic tests, and coordinating care with other healthcare providers. This time includes: history taking, physical examination, medical decision making, counseling, ECG interpretation, imaging interpretation, lab interpretation, orders, and education, excluding time spent in the performance of separately billed services. Admission and Anticipated Discharge Date Admission Date: December 01, 2024 Subjective Patient seen and examined at bedside. Patient comfortable this morning. A little more volume overloaded than she was before. No symptoms at this time. Review of Systems Review of Systems: CONSTITUTIONAL: fatigue, fluid retention EYES: Patient denies any visual symptoms. EARS, NOSE, AND THROAT: No difficulties with hearing. No symptoms of rhinitis or sore throat. CARDIOVASCULAR: Patient denies chest pains, palpitations, orthopnea and paroxysmal nocturnal dyspnea. RESPIRATORY: No dyspnea on exertion, no wheezing or cough. GI: diarrhea : No urinary hesitancy or dribbling. No nocturia or urinary frequency. No abnormal urethral discharge. MUSCULOSKELETAL: volume overload NEUROLOGIC: No chronic headaches, no seizures. Patient denies numbness, tingling or weakness. PSYCHIATRIC: Patient denies problems with mood disturbance. No problems with anxiety. ENDOCRINE: No excessive urination or excessive thirst. DERMATOLOGIC: Patient denies any rashes or skin changes. Physical Exam Physical Exam: Gen: A&O 3 NAD HEENT: NCAT, EOMI, not icteric. External ears normal. No rhinorrhea. Moist mucous membranes. Neck: Supple, full range of motion, no observable masses, No meningeal sign. Lungs: bilateral rhonchi throughout lung bill CV: RRR, worsening nonpitting edema throughout legs Abdomen: Soft, nondistended, No rebound tenderness. MSK: No joint swelling, no redness. diffuse non pitting edema throughout arms and legs, minimal urine output Skin: No rashes, petechiae, lesions. Normal color per patient. Neuro: Normal Gait, Grossly intact. Psych: Appropriate for situation. Results & Data Results & Data Vital Signs (Past 12 Hours) Vital Signs Temp Pulse Resp BP Pulse Ox O2 Del Method O2 Flow Rate 12/05/24 11:02 36.4 C L 67 20 107/65 90 Nasal Cannula 5 12/05/24 08:17 36.4 C L 74 18 115/72 92 Nasal Cannula 5 12/05/24 07:40 Nasal Cannula 5 12/05/24 07:13 60 16 95 Nasal Cannula 5 12/05/24 03:29 36.3 C L 65 16 126/75 92 Nasal Cannula 4 Medications Administered Albuterol (Albuterol 0.083% Nebu Soln 3 Ml Vial) 2.5 mg NEB BIDR [facility]; Protocol Stop: 12/31/24 06:59 Last Admin: 12/05/24 07:11 Dose: 2.5 mg Documented By: Admin: 12/04/24 20:07 Dose: Not Given Documented By: Admin: 12/04/24 06:59 Dose: 2.5 mg Documented By: Admin: 12/03/24 21:18 Dose: 2.5 mg Documented By: Admin: 12/03/24 07:04 Dose: 2.5 mg Documented By: Admin: 12/02/24 20:09 Dose: 2.5 mg Documented By: Admin: 12/02/24 07:26 Dose: 2.5 mg Documented By: Admin: 12/01/24 19:26 Dose: 2.5 mg Documented By: Admin: 12/01/24 07:01 Dose: 2.5 mg Documented By: BISI Diltiazem HCl (Diltiazem Hcl 120 Mg Capcr) [facility] Stop: 12/31/24 08:59 Last Admin: 12/05/24 08:24 Dose: 120 mg Documented By: Admin: 12/04/24 09:04 Dose: 120 mg Documented By: Admin: 12/03/24 07:51 Dose: 120 mg Documented By: Admin: 12/02/24 08:27 Dose: 120 mg Documented By: Admin: 12/01/24 08:58 Dose: 120 mg Documented By: TRAY Furosemide (Furosemide Inj 20 Mg/2 Ml Vial) 20 mg IV TID [place] Stop: 01/02/25 13:59 Last Admin: 12/05/24 08:23 Dose: 20 mg Documented By: Admin: 12/04/24 20:56 Dose: 20 mg Documented By: Admin: 12/04/24 13:15 Dose: 20 mg Documented By: Admin: 12/04/24 09:05 Dose: 20 mg Documented By: Admin: 12/03/24 20:52 Dose: 20 mg Documented By: Admin: 12/03/24 14:00 Dose: 20 mg Documented By: YANICK Piperacillin Sod/Tazobactam Sod (Zosyn) 4.5 gm in 100 mls @ 25 mls/hr IV Q12H [place]; Protocol Stop: 12/07/24 19:59 Last Admin: 12/05/24 08:31 Dose: 25 mls/hr Documented By: Infusion: 12/05/24 01:00 Dose: Infused Documented By: Admin: 12/04/24 20:52 Dose: 25 mls/hr Documented By: Infusion: 12/04/24 13:38 Dose: Infused Documented By: Admin: 12/04/24 09:05 Dose: 25 mls/hr Documented By: Infusion: 12/04/24 00:45 Dose: Infused Documented By: Admin: 12/03/24 20:45 Dose: 25 mls/hr Documented By: Infusion: 12/03/24 13:51 Dose: Infused Documented By: Admin: 12/03/24 07:51 Dose: 25 mls/hr Documented By: Infusion: 12/03/24 00:08 Dose: Infused Documented By: Admin: 12/02/24 19:54 Dose: 25 mls/hr Documented By: KINGS Insulin Glargine (Lantus Per Unit Charge) [facility] Stop: 01/04/25 08:59 Last Admin: 12/05/24 08:25 Dose: 5 units Documented By: JUANITO Co-signed By: YANICK Metoprolol Succinate (Metoprolol Succ 50mg Ext Rel Tab) 50 mg PO QAM [facility] Stop: 12/31/24 08:59 Last Admin: 12/05/24 08:24 Dose: 50 mg Documented By: Admin: 12/04/24 09:05 Dose: 50 mg Documented By: Admin: 12/03/24 07:51 Dose: 50 mg Documented By: Admin: 12/02/24 08:27 Dose: 50 mg Documented By: Admin: 12/01/24 08:58 Dose: 50 mg Documented By: TRAY
[2024-12-06] MEDS: PNEUMOCOCCAL VACCINE (PCV20) 20-VAL CONJ-DIP CRM/PF 0.5 ML SYR IM ONE (09:39)
--- NOTE | 2024-12-06 14:44 | Hospitalist Progress Note ---
Date of Service December 06, 2024 Assessment & Plan (1) Oliguria and anuria: Plan: 89-year-old female with past medical history significant for type 2 diabetes, CKD stage IV, gout arthropathy, dyslipidemia, history of diabetic foot ulcer, COPD, on home oxygen 2 L, atrial fibrillation, hypertension, macular degeneration of left eye, morbid obesity, pressure ulcer left heel, who lives at home with her son and since May nonambulatory was brought in by daughter because of patient not micturating for about a day. Recently patient was admitted on 11/18/2024 and was discharged on 11/21/2024. She was admitted for hypoxemia and acute bronchitis due to human metapneumovirus. Patient still has some cough. No fevers. No chest pain or shortness of breath. No headache. Has some runny nose. No sore throat. Appetite is down. But today she drank about 90 ounces of water as she was not micturating. No abdominal pain. Normal bowel movements. Lower extremity is more swollen than usual. She has pressure ulcers in the sacral region and also left heel and she has home health nurse who checks on her. Currently saturating okay and hemodynamics are okay. Patient seems comfortable. Could tell her name. Knows that she in the hospital. Knows her date of . Thinks this is still October. But could tell current year. Patient says when she coughs she is micturating little bit. Placed Ramey catheter in the ER. Ramey drained about 50 mL of urine. As per staff her diaper was wet. #Acute Renal Failure on CKD Stage IV #Comfort Focused Care -Baseline creatinine 1.9-2 -Presented with creatinine of 4.16 and BUN of 100 -creatinine stable, not improving, patient volume overloaded on exam -urine output not improving despite diuresis -electrolytes elevating, getting uremia symptoms, minimal urine output Plan: -stop 20 IV tid lasix, transition to 60 PO bid lasix for homegoing, should continue at home on hospice as well for quality of life -nephrology consulted, appreciate recs -family discussion as above, comfort focused care at this time -continue dilaudid 0.5 mg q4hr prn for pain -continue zofran for nausea/vomiting -continue ativan 0.5mg q6hr prn for agitation -monitor diarrhea, if needed can consider imodium, will check C. diff first -glycopyrulate for secretions if needed -working on setting up hospice at home, tentative plan for discharge home with hospice in AM on vs. less likely in evening on Thursday #HAP #COPD #Acute on Chronic Hypoxic Respiratory Failure -patient has risk factors for MRSA and zosyn -non toxic at this time, CT chest revealing concern for pneumonia Plan: -continue zosyn, day 09/03 -continue incentive spirometer #Tracheal Narrowing -read on CT chest, unclear etiology -on room air, in acute renal failure making contrast relative contraindication at this time #Hypervolemic Hyperosmolar Hyponatremia -Sodium 125 last check Type 2 diabetes -SSI -pharmacy consulted Pressure ulcers Stage III sacral ulcers and also left heel callus -Wound care History of gout -Hold allopurinol Atrial fibrillation -Continue metoprolol and diltiazem -continue warfarin, no INR checks Hypertension -On diltiazem and metoprolol succinate Hyperlipidemia -On statin Ambulate dysfunction -Currently nonambulatory I spent a total of 50 minutes in direct patient care, including [id number] time with the patient and/or family, reviewing medical records, ordering and reviewing diagnostic tests, and coordinating care with other healthcare providers. This time includes: history taking, physical examination, medical decision making, counseling, ECG interpretation, imaging interpretation, lab interpretation, orders, and education, excluding time spent in the performance of separately billed services. Admission and Anticipated Discharge Date Admission Date: December 01, 2024 Subjective Patient seen and exmained at bedside. Patient comfortable at this time. Discussed declining urine output, updated daughter over phone as well. Review of Systems Review of Systems: CONSTITUTIONAL: fatigue, fluid retention EYES: Patient denies any visual symptoms. EARS, NOSE, AND THROAT: No difficulties with hearing. No symptoms of rhinitis or sore throat. CARDIOVASCULAR: Patient denies chest pains, palpitations, orthopnea and paroxysmal nocturnal dyspnea. RESPIRATORY: No dyspnea on exertion, no wheezing or cough. GI: diarrhea : No urinary hesitancy or dribbling. No nocturia or urinary frequency. No abnormal urethral discharge. MUSCULOSKELETAL: volume overload NEUROLOGIC: No chronic headaches, no seizures. Patient denies numbness, tingling or weakness. PSYCHIATRIC: Patient denies problems with mood disturbance. No problems with anxiety. ENDOCRINE: No excessive urination or excessive thirst. DERMATOLOGIC: Patient denies any rashes or skin changes. Physical Exam Physical Exam: Gen: A&O 3 NAD HEENT: NCAT, EOMI, not icteric. External ears normal. No rhinorrhea. Moist mucous membranes. Neck: Supple, full range of motion, no observable masses, No meningeal sign. Lungs: bilateral rhonchi throughout lung bill CV: RRR, worsening nonpitting edema throughout legs Abdomen: Soft, nondistended, No rebound tenderness. MSK: No joint swelling, no redness. diffuse non pitting edema throughout arms and legs, minimal urine output Skin: No rashes, petechiae, lesions. Normal color per patient. Neuro: Normal Gait, Grossly intact. Psych: Appropriate for situation. Results & Data Results & Data Vital Signs (Past 12 Hours) Vital Signs Temp Pulse Resp BP Pulse Ox O2 Del Method O2 Flow Rate 12/06/24 09:34 36.3 C L 69 18 143/69 H 97 Room Air 12/06/24 06:53 69 18 96 Nasal Cannula 4 12/06/24 02:48 36.3 C L 68 18 122/75 98 Nasal Cannula 5 Medications Administered Albuterol (Albuterol 0.083% Nebu Soln 3 Ml Vial) 2.5 mg NEB BIDR [place]; Protocol Stop: 12/31/24 06:59 Last Admin: 12/06/24 06:53 Dose: 2.5 mg Documented By: dmw Admin: 12/05/24 18:20 Dose: 2.5 mg Documented By: Admin: 12/05/24 07:11 Dose: 2.5 mg Documented By: Admin: 12/04/24 20:07 Dose: Not Given Documented By: Admin: 12/04/24 06:59 Dose: 2.5 mg Documented By: Admin: 12/03/24 21:18 Dose: 2.5 mg Documented By: Admin: 12/03/24 07:04 Dose: 2.5 mg Documented By: Admin: 12/02/24 20:09 Dose: 2.5 mg Documented By: Admin: 12/02/24 07:26 Dose: 2.5 mg Documented By: Admin: 12/01/24 19:26 Dose: 2.5 mg Documented By: Admin: 12/01/24 07:01 Dose: 2.5 mg Documented By: BISI Diltiazem HCl (Diltiazem Hcl 120 Mg Capcr) 120 mg PO QAM [place] Stop: 12/31/24 08:59 Last Admin: 12/06/24 09:39 Dose: 120 mg Documented By: Admin: 12/05/24 08:24 Dose: 120 mg Documented By: Admin: 12/04/24 09:04 Dose: 120 mg Documented By: Admin: 12/03/24 07:51 Dose: 120 mg Documented By: Admin: 12/02/24 08:27 Dose: 120 mg Documented By: Admin: 12/01/24 08:58 Dose: 120 mg Documented By: TRAY Furosemide (Furosemide Inj 20 Mg/2 Ml Vial) 20 mg IV TID [place] Stop: 01/02/25 13:59 Last Admin: 12/06/24 09:40 Dose: 20 mg Documented By: Admin: 12/05/24 21:44 Dose: 20 mg Documented By: Admin: 12/05/24 14:01 Dose: 20 mg Documented By: Admin: 12/05/24 08:23 Dose: 20 mg Documented By: Admin: 12/04/24 20:56 Dose: 20 mg Documented By: Admin: 12/04/24 13:15 Dose: 20 mg Documented By: Admin: 12/04/24 09:05 Dose: 20 mg Documented By: Admin: 12/03/24 20:52 Dose: 20 mg Documented By: Admin: 12/03/24 14:00 Dose: 20 mg Documented By: YANICK Piperacillin Sod/Tazobactam Sod (Zosyn) 4.5 gm in 100 mls @ 25 mls/hr IV Q12H [place]; Protocol Stop: 12/07/24 19:59 Last Admin: 12/06/24 09:39 Dose: 25 mls/hr Documented By: Infusion: 12/06/24 00:36 Dose: Infused Documented By: Admin: 12/05/24 20:33 Dose: 25 mls/hr Documented By: Infusion: 12/05/24 13:35 Dose: Infused Documented By: ONeftaly Admin: 12/05/24 08:31 Dose: 25 mls/hr Documented By: Infusion: 12/05/24 01:00 Dose: Infused Documented By: Admin: 12/04/24 20:52 Dose: 25 mls/hr Documented By: Infusion: 12/04/24 13:38 Dose: Infused Documented By: Admin: 12/04/24 09:05 Dose: 25 mls/hr Documented By: Infusion: 12/04/24 00:45 Dose: Infused Documented By: Admin: 12/03/24 20:45 Dose: 25 mls/hr Documented By: Infusion: 12/03/24 13:51 Dose: Infused Documented By: Admin: 12/03/24 07:51 Dose: 25 mls/hr Documented By: Infusion: 12/03/24 00:08 Dose: Infused Documented By: Admin: 12/02/24 19:54 Dose: 25 mls/hr Documented By: HDC Insulin Glargine (Lantus Per Unit Charge) 5 units SQ QAM [facility] Stop: 01/04/25 08:59 Last Admin: 12/06/24 09:44 Dose: 5 units Documented By: OTILIA Co-signed By: LEW Admin: 12/05/24 08:25 Dose: 5 units Documented By: JUANITO Co-signed By: YANICK Metoprolol Succinate (Metoprolol Succ 50mg Ext Rel Tab) 50 mg PO QAM [facility] Stop: 12/31/24 08:59 Last Admin: 12/06/24 09:40 Dose: 50 mg Documented By: Admin: 12/05/24 08:24 Dose: 50 mg Documented By: Admin: 12/04/24 09:05 Dose: 50 mg Documented By: Admin: 12/03/24 07:51 Dose: 50 mg Documented By: Admin: 12/02/24 08:27 Dose: 50 mg Documented By: Admin: 12/01/24 08:58 Dose: 50 mg Documented By: TRAY
[2024-12-06] MEDS: FUROSEMIDE 20 MG TAB PO SCH (18:45)
[2024-12-07] MEDS ORDERED: ALBUTEROL 0.083% NEBU SOLN 3 ML VIAL NEB PRN (07:57)
[2024-12-07 08:24] VITALS: RESP 16; TEMP 97.3
--- NOTE | 2024-12-07 13:11 | Hospitalist Progress Note ---
Date of Service December 07, 2024 Assessment & Plan (1) Comfort measures only status: (2) Acute renal failure superimposed on stage 4 chronic kidney disease: (3) Oliguria and anuria: (4) Type 2 diabetes mellitus: (5) Persistent atrial fibrillation: (6) Acute on chronic diastolic (congestive) heart failure: (7) Community acquired pneumonia: (8) Hyponatremia with excess extracellular fluid volume: (9) Acute and chronic respiratory failure with hypoxia: Plan Patient with multiple comorbidities and progressing renal failure not responding to diuresis and increasing oliguria. Patient has been transition to comfort care Coordinating home hospice Phone conversation with patient's daughter, hospital bed being delivered this afternoon. Will be able to transport patient tomorrow around lunchtime Instructed daughter to plan on discharge tomorrow as mentioned above Admission and Anticipated Discharge Date Admission Date: December 01, 2024 Subjective Patient denies any chest pain or shortness of breath. Eager to get home. Able to eat some breakfast. Physical Exam Physical Exam: Constitutional: Alert, sitting up in bed, no acute distress HEENT: Mucous membranes moist. Lungs: Decreased breath sounds, crackles at bases CV: S1-S2, regular Abdomen: Soft, nontender, nondistended Extremities: Edema feet and hands Neuro: No focal deficits, generally weak Psych: Cooperative, normal mood Results & Data Results & Data Vital Signs (Past 12 Hours) Vital Signs Temp Pulse Resp BP Pulse Ox O2 Del Method O2 Flow Rate 12/07/24 08:25 Nasal Cannula 4 12/07/24 08:23 36.3 C L 65 16 124/68 96 Nasal Cannula 4 12/07/24 07:39 81 15 95 Nasal Cannula 4 (4) Type 2 diabetes mellitus Diabetes mellitus complication detail: with foot ulcer Diabetes mellitus complication status: with skin complications Diabetes mellitus extermination inspector insulin use: without fdc use Qualified Code(s): E11.621 - Type 2 diabetes mellitus with foot ulcer; L97.509 - Non-pressure chronic ulcer of other part of unspecified foot with unspecified severity
[2024-12-08 08:34] VITALS: BP 115/65; PULSE 74; O2SAT 94
--- NOTE | 2024-12-08 11:23 | Discharge Summary ---
Discharge Summary Date of Service December 08, 2024 Principal Dx & Hospital Course #1 = Principal Diagnosis (1) Comfort measures only status: (2) Acute renal failure superimposed on stage 4 chronic kidney disease: (3) Oliguria and anuria: (4) Type 2 diabetes mellitus: (5) Persistent atrial fibrillation: (6) Acute on chronic diastolic (congestive) heart failure: (7) Community acquired pneumonia: (8) Hyponatremia with excess extracellular fluid volume: (9) Acute and chronic respiratory failure with hypoxia: Plan Patient 89-year-old female who presented to the emergency room with reports of decreasing urine output. Patient had recently been in the hospital for acute respiratory failure due to metapneumovirus. In the emergency room patient was noted to have progressing renal dysfunction but no evidence of obstruction. She was also noted to be quite hyponatremic. Patient was admitted to the hospital. Nephrology consultation was obtained for her progressive renal dysfunction and she was initially started on IV fluids. Nephrology determined foot patient most likely having progressive kidney dysfunction due to ATN from intermittent hypoxic periods. Patient is volume overloaded contributing and causing her hyponatremia. Patient was taken off IV fluids and attempts for diuresis. Extensive conversation then ensued with the patient and their family about goals of care. It was determined that she was not a great hemodialysis candidate and she would really not want to pursue hemodialysis. Based on the fact that her urine output continued to decline patient and family chose to transition towards comfort care. Case management was involved. They help coordinate home hospice which was the desire of the patient. Her medications were adjusted to medications to ensure comfort while discontinuing any medications that would not be beneficial at this time. On the day of discharge the patient denied any chest pain or shortness of breath. She was edematous and over the last 24 hours her urine output had significantly decreased. Arrangements are made for home hospice. And plan to be discharged home today with those plans in place. Notes For Next Care Provider Continue to work with hospice to ensure comfort at home avoiding emergency room and hospitalizations if at all possible based on patient's wishes Medication Changes From Visit Multiple medications adjusted for comfort Admission HPI Per Admitting Provider 89-year-old female with past medical history significant for type 2 diabetes, CKD stage IV, gout arthropathy, dyslipidemia, history of diabetic foot ulcer, COPD, on home oxygen 2 L, atrial fibrillation, hypertension, macular degeneration of left eye, morbid obesity, pressure ulcer left heel, who lives at home with her son and since May nonambulatory was brought in by daughter because of patient not micturating for about a day. Recently patient was admitted on 11/18/2024 and was discharged on 11/21/2024. She was admitted for hypoxemia and acute bronchitis due to human metapneumovirus. Patient still has some cough. No fevers. No chest pain or shortness of breath. No headache. Has some runny nose. No sore throat. Appetite is down. But today she drank about 90 ounces of water as she was not micturating. No abdominal pain. Normal bowel movements. Lower extremity is more swollen than usual. She has pressure ulcers in the sacral region and also left heel and she has home health nurse who checks on her. Currently saturating okay and hemodynamics are okay. Patient seems comfortable. Could tell her name. Knows that she in the hospital. Knows her date of . Thinks this is still October. But could tell current year. Patient says when she coughs she is micturating little bit. Placed Ramey catheter in the ER. Ramey drained about 50 mL of urine. As per staff her diaper was wet. Past medical history. As mentioned above Past surgical history. Total knee arthroplasty. Colonoscopy with biopsy. Breast biopsy. Bilateral simple mastectomy. Bilateral cataracts. Ch olecystectomy. Removal of sharted left patella. Total abdominal hysterectomy. Social history. . No smoking. Alcohol rarely. No drug use. Family history. Father had NE. Sister has hypertension. Brother had NE. Granddaughter had thyroid cancer. Grandson had non-Hodgkin's lymphoma. Admission Exam Per Admitting Provider See H&P Discharge Exam Constitutional: Alert, nontoxic, no acute distress HEENT: Mucous membranes moist. Nasal cannula in place Lungs: Decreased breath sounds, crackles at bases CV: S1-S2, regular Abdomen: Soft, nontender, nondistended Extremities: Significant edema in lower extremities and hands and forearms Neuro: No focal deficits, generally weak Psych: Cooperative, normal mood Updated Medication List Medication Instructions Recorded Confirmed Type allopurinol 300 mg tablet 300 mg PO QAM 08/15/22 12/01/24 History apple cider vinegar 500 mg tablet 500 mg PO PM 08/15/22 12/01/24 History aspirin 81 mg tablet,delayed 81 mg PO QPM 08/15/22 12/01/24 History release cholecalciferol (vitamin D3) 125 10,000 unit PO QPM 08/15/22 12/01/24 History mcg (5,000 unit) tablet (Vitamin D3) cyanocobalamin (vitamin B-12) 1,000 mcg PO QPM 08/15/22 12/01/24 History 1,000 mcg tablet (Vitamin B-12) diltiazem HCl 120 mg 120 mg PO QAM 08/15/22 12/01/24 History capsule,extended release 24 hr pravastatin 40 mg tablet 40 mg PO QPM 08/15/22 12/01/24 History vit C 250 mg-vit E 90 mg-zinc 40 1 tab PO AMPM 11/16/22 12/01/24 History mg-copper 1 [id number] capsule (PreserVision AREDS-2) loratadine 10 mg tablet (Claritin) 10 mg PO QAM 05/21/24 12/01/24 History metoprolol succinate 50 mg 50 mg PO QAM 05/21/24 12/01/24 History tablet,extended release 24 hr nystatin 100,000 unit/gram topical 1 applic topical TID PRN FUNGAL 05/21/24 12/01/24 History powder RASH famotidine 20 mg tablet (Pepcid) 20 mg PO AMPM 08/05/24 12/01/24 History warfarin 2 mg tablet 2 mg PO MOWEFR 11/18/24 12/01/24 History warfarin 2 mg tablet 3 mg PO SUTUTHSA 11/18/24 12/01/24 History pen needle, diabetic 32 gauge x #50 ea 11/21/24 12/01/24 Rx 5/32" (Pen Needle) semaglutide 0.25 mg or 0.5 mg (2 0.25 mg subcut WK 11/30/24 12/01/24 History mg/3 mL) subcutaneous pen injector (Ozempic) Saccharomyces boulardii 250 mg 250 mg PO QAM 12/01/24 12/01/24 History capsule (Florastor) albuterol sulfate 2.5 mg/3 mL 2.5 mg continuous nebulization BID 12/01/24 12/01/24 History (0.083 %) solution for nebulization bisacodyl 5 mg tablet,delayed 10 mg PO HS PRN Constipation 12/01/24 12/01/24 History release (Dulcolax (bisacodyl)) digoxin 125 mcg (0.125 mg) tablet 125 mcg PO 3XWK 12/01/24 12/01/24 History furosemide 40 mg tablet 80 mg PO QAM 12/01/24 12/01/24 History insulin glargine 100 unit/mL (3 5 - 8 unit subcut QAM 12/01/24 12/01/24 History mL) subcutaneous pen (Lantus Solostar U-100 Insulin) acetaminophen 500 mg tablet 1,000 mg (2 x 500 mg) PO Q8 PRN 12/08/24 Rx (Tylenol Extra Strength) discomfort #180 tabs albuterol sulfate 2.5 mg/3 mL 2.5 mg (3 mL) NEB Q4H PRN 12/08/24 Rx (0.083 %) solution for nebulization shortness of breath or wheezing #75 mL furosemide 40 mg tablet (Lasix) 80 mg (2 x 40 mg) PO BID #120 tabs 12/08/24 Rx lorazepam 1 mg tablet (Ativan) 1 mg buccal Q6H PRN nausea/ 12/08/24 Rx anxiety #10 tabs morphine concentrate 100 mg/5 mL 5 mg (0.25 mL) PO Q2H PRN 12/08/24 Rx (20 mg/mL) oral solution dyspnea/discomfort #30 mL Hospital Stay Data Consultations 12/01/24 01:22 ED Decision to Admit Stat 12/01/24 08:00 Consult Nephrology Routine Diagnostic Imagining Performed 12/01/24 02:19 CT Abd and Pelvis [CT abd pelvis wo con] Urgent 12/01/24 03:32 US venous doppler LE BI Routine 12/01/24 05:53 US Renal Bladder [US renal/blad retro comp] Routine 12/02/24 10:11 CT chest diagnostic wo con Urgent Reviewed imaging, laboratory and diagnostic studies. Pertinent findings as below. Hemoglobin 10.3 Most recent creatinine 5.1 on 12/04/2024 CTA of the chest question pneumonia question right middle lobe nodules, cardiomegaly Pending Results Patient Have Any Pending Studies at Discharge: No Discharge Instructions Given to Patient (Per Discharging Provider) Goal was to keep you comfortable at home so you can enjoy family and friends and your home environment and avoid frequent trips to the emergency room and hospitalizations. Call hospice first with any questions or concerns or increasing symptoms Home Health Attestation I certify that this patient is under my care and that I, or a physicians expanded function dental assistant working with me, had a face to-face encounter that meets the home health [id number] encounter requirements with this patient. The encounter with the patient was in whole, or in part, for the following medical condition, which is the primary reason for home health care (list medical condition): I certify that, based on my findings, the following services are medically necessary home health services: My clinical findings support the need for the above services because: Further, I certify that my clinical findings support that this patient is homebound (i.e. absences from home require considerable and taxing effort and are for medical reasons or islam services or infrequently or of short duration when for other reasons) because: Certification for Home Health Services: Based on the above findings, I certify that this patient is confined to the home and needs intermittent long-term care, physical therapy and/or speech therapy or continues to need occupational therapy. The patient is under my care, and I have initiated the establishment of the plan of care. This patient will be followed by a physician who will periodically review the plan of care. Total Time Total Time Spent Total Time Spent (In Minutes): 35
== END 2024-12-08 13:22 | disposition hospice, home (50) | DRG 682 ==
LOC: ED 22:44 → 2S 12-01 02:25 → SUATTDRO 12-01 02:25 → 2S 12-01 03:13 → 3E 12-06 06:25